=== PATIENT | female | born 1935 | race Caucasian/White ===

== ENCOUNTER 2020-01-15 15:07 | Inpatient (IN) | payer MEDICARE, SELFPAY ==
[2020-01-15] VITALS (10 sets, daily range): BP systolic 88–110; BP diastolic 56–72; PULSE 105–144; RESP 15–21; TEMP 36.6–37; O2SAT 94–97; BMI 25.9
--- NOTE | 2020-01-15 | ECG_ITS ---
Test Reason : [facility] HEART RATE Blood Pressure : / mmHG Vent. Rate : 131 BPM Atrial Rate : 131 BPM P-R Int : 000 ms QRS Dur : 078 ms QT Int : 300 ms P-R-T Axes : 000 053 194 degrees QTc Int : 443 ms Atrial fibrillation with rapid ventricular response ST & T wave abnormality, consider anterior ischemia Abnormal ECG When compared with ECG of 27-APR-2017 12:48, Atrial fibrillation has replaced Sinus rhythm Vent. rate has increased BY [address] more depressed Anterior leads T wave inversion now evident in Anterior leads Referred By: Anamaria Pang Electronically Signed By:JD MARISCAL
--- NOTE | 2020-01-15 | CT_ITS ---
EXAMINATION: CT ABDOMEN AND PELVIS WITHOUT CONTRAST CLINICAL INFORMATION: Nausea, diarrhea, acute renal failure, tachycardia. COMPARISON: None TECHNIQUE: Multidetector volumetric imaging was performed from the superior aspect of the liver through the pubic symphysis. Sagittal and coronal reformatted images were obtained on the technologist's workstation. This CT examination was performed using dose optimization techniques as appropriate, variously including the following: *Automated exposure control *Adjustment of mA and/or kV according to patient size (this includes techniques or standardized protocols for targeted exams where dose is matched to indication/reason for exam; i.e. extremities or head) *Use of iterative reconstruction technique DLP: 447 mGy-cm FINDINGS: LUNG BASES: Bibasilar atelectasis. Cardiomegaly. Coronary artery calcification. LIVER, GALLBLADDER, AND BILIARY TREE: Noncontrast evaluation of the liver is normal. There are calcified gallstones. No biliary ductal dilatation. PANCREAS: Normal noncontrast appearance. SPLEEN: Unremarkable. ADRENAL GLANDS: Diffuse left adrenal thickening. Right adrenal gland normal. KIDNEYS AND URETERS: 5 mm hyperdensity at the lateral cortex of the right mid-upper kidney, likely a hyperdense cyst but incompletely evaluated without IV contrast. Similarly there is a 5 mm hyperdensity in the anterior cortex of the right mid-lower kidney. No calculi or hydronephrosis. Likely 1.1 cm cyst of the posterior cortex of the right mid kidney. There is a 6.5 cm simple cyst of the lower pole the left kidney with a coarse peripheral calcification. No hydronephrosis or calculi. BLADDER: Unremarkable. GASTROINTESTINAL TRACT: Large hiatal hernia with essentially the entirety of the stomach in the chest. Small bowel is nondilated. There is ill-defined fluid and fat stranding adjacent the cecum. There are a few adjacent mildly prominent lymph nodes. The ileocecal valve is prominent. There are diverticula elsewhere in the colon. There is distal rectal wall thickening and perirectal fluid and inflammatory changes. There is fluid and fat stranding surrounding the distal sigmoid colon as well. ABDOMINAL WALL: Tiny fat-containing umbilical hernia. LYMPH NODES: Normal. VASCULAR: Normal caliber. Moderate calcified atherosclerotic changes. PELVIC VISCERA: Uterus not seen, either diminutive or surgically absent. No adnexal mass. OSSEOUS STRUCTURES: Multilevel degenerative changes of the thoracolumbar spine. Grade 1 anterolisthesis L3 on L4. Vacuum disc phenomenon L2-L3 through L5-S1. IMPRESSION: There are several segments of large bowel with adjacent fluid and fat stranding suggesting infection/inflammation. There is fluid and fat stranding adjacent the cecum, distal rectum, and distal sigmoid colon. The appearance favors colitis/proctitis. There is a background of diverticulosis particularly in the sigmoid colon but the appearance favors colitis over diverticulitis. Given the multifocal findings, consider colonoscopy after the acute episode has improved. Large hiatal hernia with essentially the entirety of the stomach in the chest.
--- NOTE | 2020-01-15 18:12 | ED.NAVMDI ---
HPI - Nausea/Vomiting/Diarrhea General Chief complaint: Nausea/Vomiting/Diarrhea <CRISTIAN Gibson Last Filed: 01/15/20 20:46> Stated complaint: diarrhea <CRISTIAN Gibson Last Filed: 01/15/20 20:46> Time Seen by Provider: 01/15/20 17:40 <CRISTIAN Gibson Last Filed: 01/15/20 20:46> Source: patient <CRISTIAN Gibson Last Filed: 01/15/20 20:46> Mode of arrival: wheelchair <CRISTIAN Gibson Last Filed: 01/15/20 20:46> Limitations: no limitations <CRISTIAN Gibson Last Filed: 01/15/20 20:46> History of Present Illness HPI Narrative: 85 y/o female here with diarrhea x4 days. She reports nausea and generally feeling unwell. No abdominal pain. No known sick contact. Recent abx in the last 1 month. No fevers at home. No bloody diarrhea. <CRISTIAN Gibson Last Filed: 01/15/20 20:46> Associated nausea: Yes <CRISTIAN Gibson Last Filed: 01/15/20 20:46> Related Data Home medications: Home Medications Medication Instructions Recorded Confirmed amlodipine 1 tab PO DAILY 01/15/20 01/15/20 atorvastatin 1 tab PO DAILY 01/15/20 01/15/20 metoprolol succinate 1 tab PO DAILY 01/15/20 01/15/20 omeprazole 1 cap PO DAILY 01/15/20 01/15/20 raloxifene 60 mg PO DAILY 01/15/20 01/15/20 warfarin PO 01/15/20 <CRISTIAN Gibson Last Filed: 01/15/20 20:46> Allergies/Adverse reactions: Allergies Allergy/AdvReac Type Severity Reaction Status Date / Time No Known Allergies Allergy Unverified 01/01/20 15:52 [No Known Allergies*] N.K.D.A. Allergy Unknown Uncoded 10/20/14 00:00 <CRISTIAN Gibson Last Filed: 01/15/20 20:46> Review of Systems Constitutional: Constitutional: Reports fatigue, Denies fever(s), Reports headache(s), Reports lethargy and Reports malaise <CRISTIAN Gibson Filed: 01/15/20 20:46> Eyes: Eyes: Reports no additional eye complaints <CRISTIAN Gibson Filed: 01/15/20 20:46> ENT: Reports system reviewed and no additional complaints, except as documented, Denies dizziness and Reports headache(s) <CRISTIAN Gibson Filed: 01/15/20 20:46> Cardiovascular: Cardiovascular: Denies chest pain, Denies chest pain at rest, Denies syncope, Reports rapid heart rate, Reports irregular heart rhythm and Denies leg edema <CRISTIAN Gibson Filed: 01/15/20 20:46> Respiratory: Respiratory: Reports no additional respiratory complaints <CRISTIAN Gibson Filed: 01/15/20 20:46> Gastrointestinal: Gastrointestinal: Denies abdominal pain, Denies melena, Denies hematochezia, Reports fecal incontinence, Reports diarrhea and Reports nausea <CRISTIAN Gibson Filed: 01/15/20 20:46> Genitourinary: Genitourinary: Reports no additional female genitourinary complaints <CRISTIAN Gibson Filed: 01/15/20 20:46> Musculoskeletal: Musculoskeletal: Reports no additional musculoskeletal complaints <CRISTIAN Gibson Filed: 01/15/20 20:46> Neurologic: Denies dizziness, Denies syncope and Reports headache(s) <CRISTIAN Gibson Filed: 01/15/20 20:46> Psychiatric: Psychiatric: Reports no additional psychiatric complaints <CRISTIAN Gibson Filed: 01/15/20 20:46> Endocrine: Endocrine: Reports fatigue <CRISTIAN Gibson Filed: 01/15/20 20:46> Hematologic/Lymphatic: Hematologic/Lymphatic: Reports no additional hematologic/lymphatic complaints <CRISTIAN Gibson Filed: 01/15/20 20:46> Allergic/Immunologic: Allergic/Immunologic: Reports no additional allergic/immunologic complaints <CRISTIAN Gibson Filed: 01/15/20 20:46> PMFSH Past Medical History Medical History: Medical History (Updated 01/16/20 @ 00:04 by Anamaria Pang NP) Atrial fibrillation Diverticulitis Gastro-esophageal reflux disease without esophagitis High cholesterol History of cardioversion Hypertension <CRISTIAN Gibson - Last Filed: 01/15/20 20:46> Surgical History: Surgical History H/O mastectomy <CRISTIAN Gibson - Last Filed: 01/15/20 20:46> Social History Social History: Social History Alcohol intake: never Smoking Status: Never smoker Use of substances other than those prescribed or required for medical reasons: No Advance Directives: No Advance Directives Information Provided: Yes <CRISTIAN Gibson - Last Filed: 01/15/20 20:46> Physical Exam Vital Signs and I&O and Narrative: Vital Signs and I&O: Vital Signs Temp 97.8 F 01/15/20 19:32 Pulse 123 H 01/15/20 23:53 Resp 18 01/15/20 22:47 BP 92/59 L 01/15/20 23:53 Pulse Ox 94 01/15/20 22:47 Intake & Output 01/15/20 01/15/20 01/16/20 06:59 18:59 06:59 Intake Total 2099 Balance 2099 Weight 62.3 kg Intake: Intake, IV Amoun t 2099 levoFLOXacin/D 5W 500 mg In 100 100 / 100 ml @ 100 mls/h r IV ONCE ONE Rx# :[id number] 0.9 % Sodium C hloride 1,000 ml 1999 / 1999 @ 999 mls/hr I VCONT .Q1H1M TRAV Rx#:[id number] Body Mass Index 25.9 <CRISTIAN Gibson - Last Filed: 01/15/20 20:46> Vital Signs and I&O: Vital Signs Temp 97.8 F 01/15/20 19:32 Pulse 123 H 01/15/20 23:53 Resp 18 01/15/20 22:47 BP 92/59 L 01/15/20 23:53 Pulse Ox 94 01/15/20 22:47 Intake & Output 01/15/20 01/15/20 01/16/20 06:59 18:59 06:59 Intake Total 2099 Balance 2099 Weight 62.3 kg Intake: Intake, IV Amoun t 2099 levoFLOXacin/D 5W 500 mg In 100 100 / 100 ml @ 100 mls/h r IV ONCE ONE Rx# :[id number] 0.9 % Sodium C hloride 1,000 ml 1999 / 1999 @ 999 mls/hr I VCONT .Q1H1M TRAV Rx#:[id number] Body Mass Index 25.9 <Anamaria Pang NP - Last Filed: 01/16/20 01:22> Const: General: cooperative, healthy appearing, comfortable and no acute distress <CRISTIAN Gibson Last Filed: 01/15/20 20:46> General: cooperative, healthy appearing, comfortable and no acute distress <Anamaria Pang NP - Last Filed: 01/16/20 01:22> Nutritional Appearance: average body habitus <CRISTIAN Gibson Last Filed: 01/15/20 20:46> Nutritional Appearance: average body habitus <Anamaria Pang NP - Last Filed: 01/16/20 01:22> Orientation/consciousness: patient oriented x3 <CRISTIAN Gibson Last Filed: 01/15/20 20:46> Orientation/consciousness: patient oriented x3 <Anamaria Pang NP - Last Filed: 01/16/20 01:22> Limitations: no limitations <CRISTIAN Gibson Last Filed: 01/15/20 20:46> Limitations: no limitations <Anamaria Pang NP - Last Filed: 01/16/20 01:22> HENMT: Head: Yes normal to inspection <CRISTIAN Gibson Last Filed: 01/15/20 20:46> Head: Yes normal to inspection <ROBB Ward Last Filed: 01/16/20 01:22> Ears: hearing grossly normal bilaterally <CRISTIAN Gibson Last Filed: 01/15/20 20:46> Ears: hearing grossly normal bilaterally <ROBB Ward Last Filed: 01/16/20 01:22> General nose exam: Normal external nose present <CRISTIAN Gibson Last Filed: 01/15/20 20:46> General nose exam: Normal external nose present <Anamaria Pang NP - Last Filed: 01/16/20 01:22> Face and sinus: Yes normal facial exam <CRISTIAN Gibson - Last Filed: 01/15/20 20:46> Face and sinus: Yes normal facial exam <Anamaria Pang NP - Last Filed: 01/16/20 01:22> Eyes: General: appearance normal, both eyes and all related structures <CRISTIAN Gibson - Last Filed: 01/15/20 20:46> General: appearance normal, both eyes and all related structures <Anamaria Pang NP - Last Filed: 01/16/20 01:22> Neck: Neck: Yes normal visual inspection <CRISTIAN Gibson - Last Filed: 01/15/20 20:46> Neck: Yes normal visual inspection <Anamaria Pang NP - Last Filed: 01/16/20 01:22> Resp: Effort & Inspection: normal respiratory effort and able to speak in complete sentences <CRISTIAN Gibson - Last Filed: 01/15/20 20:46> Effort & Inspection: normal respiratory effort and able to speak in complete sentences <Anamaria Pang NP - Last Filed: 01/16/20 01:22> Auscultation: clear to auscultation bilaterally <CRISTIAN Gibson - Last Filed: 01/15/20 20:46> Auscultation: clear to auscultation bilaterally <Anamaria Pang NP - Last Filed: 01/16/20 01:22> Cardio: Rate: tachycardic <CRISTIAN Gibson - Last Filed: 01/15/20 20:46> Rate: tachycardic <Anamaria Pang NP - Last Filed: 01/16/20 01:22> Rhythm: abnormal rhythm irregularly irregular <CRISTIAN Gibson Last Filed: 01/15/20 20:46> Rhythm: abnormal rhythm irregularly irregular <Anamaria Pang NP - Last Filed: 01/16/20 01:22> GI: Inspection: Yes normal to inspection <CRISTIAN Gibson - Last Filed: 01/15/20 20:46> Inspection: Yes normal to inspection <Anamaria Pang NP - Last Filed: 01/16/20 01:22> Palpation (GI): Soft to palpation and nontender <CRISTIAN Gibsno - Last Filed: 01/15/20 20:46> Palpation (GI): Soft to palpation and nontender <Anamaria Pang NP - Last Filed: 01/16/20 01:22> Auscultation: Hyperactive bowel sounds present <CRISTIAN Gibson - Last Filed: 01/15/20 20:46> Auscultation: Hyperactive bowel sounds present <Anamaria Pang NP - Last Filed: 01/16/20 01:22> Rectal Exam - Female: deferred <CRISTIAN Gibson - Last Filed: 01/15/20 20:46> Rectal Exam - Female: deferred <Anamaria Pang NP - Last Filed: 01/16/20 01:22> Neuro: General: patient oriented x3 <CRISTIAN Gibson - Last Filed: 01/15/20 20:46> General: patient oriented x3 <Anamaria Pang NP - Last Filed: 01/16/20 01:22> Extrem: General: Yes no pedal edema and Yes no calf tenderness <CRISTIAN Gibson - Last Filed: 01/15/20 20:46> General: Yes no pedal edema and Yes no calf tenderness <Anamaria Pang NP - Last Filed: 01/16/20 01:22> Psych: Appearance: grossly normal <CRISTIAN Gibson - Last Filed: 01/15/20 20:46> Appearance: grossly normal <Anamaria Pang NP - Last Filed: 01/16/20 01:22> Mental Status: mental status grossly normal <CRISTIAN Gibson - Last Filed: 01/15/20 20:46> Mental Status: mental status grossly normal <Anamaria Pang NP - Last Filed: 01/16/20 01:22> Course Course Hospital Course: 85 y/o femalewith hx afib on coumadin, hx cardioversion in the past presenting with diarrhea x4 days. Concern for dehydration with tachycardia and soft BP on arrival. Non-toxic appearing. Labs and CT scan pending. IVF infusing. Dispo pending results and improvement. <CRISTIAN Gibson - Last Filed: 01/15/20 20:46> Reevaluation(s) Reevaluation #1: 2nd liter fluid almost complete. She remains tachycardic 130s, afib. She is on lopressor at home - unclear compliance, INR is 1.1 - she is supposedly on coumadin at home. Will give a small dose of IV lopressor 2.5 mg x1 and reassess. SBP 106 at this time. Will monitor closely. <CRISTIAN Gibson - Last Filed: 01/15/20 20:46> Time: 21:32 <Anamaria Pang NP - Last Filed: 01/16/20 01:22> Reevaluation #2: Sign-out from Kimberly FOSTER at 9:00 p.m. labs and scans pending. This patient will possibly be admission. <Anamaria Pang NP - Last Filed: 01/16/20 01:22> Time: 22:45 <Anamaria Pang NP - Last Filed: 01/16/20 01:22> Reevaluation #3: AFib continues, repeat EKG completed. Dr. 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 Plan is to continue with Lopressor 5 mg IV push. Patient did not take any of her medications today or throughout the week because she felt ill. Third L of normal saline infusing. <Anamaria Pang NP - Last Filed: 01/16/20 01:22> Time: 23:15 <Anamaira Pang NP - Last Filed: 01/16/20 01:22> Additional Reevaluation(s): Heart rate bumps from 99-130. We will give p.o. metoprolol 50 mg ER per home dosage. at 12:[address] Garner, patient will be admitted for colitis and AFib. Patient verbalized understanding of and agrees to plan of care. <Anamaria Pang NP - Last Filed: 01/16/20 01:22> MDM - Nausea/Vomiting/Diarrhea MDM Narrative Medical decision making narrative: fecal incontinence at home - ?recent abx. will r/o C diff. soft BP and tachycardic on arrival, concern for dehydration <CRISTIAN Gibson - Last Filed: 01/15/20 20:46> Differential Diagnosis Differential diagnosis: Likely traveler's diarrhea, food poisoning, gastroenteritis, clostridium difficile infection, drug-induced nausea and vomiting and dehydration <CRISTIAN Gibson - Last Filed: 01/15/20 20:46> Medical Records Attestation: I reviewed the patient's medical records. <CRISTIAN Gibson - Last Filed: 01/15/20 20:46> Lab Data Attestation: I reviewed the patient's lab results. <CRISTIAN Gibson - Last Filed: 01/15/20 20:46> Result diagrams: : 01/15/20 19:13 01/15/20 18:34 <CRISTIAN Gibson - Last Filed: 01/15/20 20:46> Labs: Lab Results 01/15/20 01/15/20 01/15/20 Range/Units 18:34 19:13 19:13 WBC 6.6 (4.8-10.8) X10*3/uL RBC 4.87 (4.20-5.50) X10*6/uL Hgb 14.6 (12.0-16.0) g/dl Hct 43.6 (37-47) % MCV 89.5 (80-98) fL MCH 30.0 (27.0-33.0) pg MCHC 33.5 (31.0-35.0) g/dl RDW 14.1 (11.0-16.0) % Plt Count 143 L (160-400) X10*3/uL MPV 11.2 (9.4-12.3) fL Immature Gran % (Auto) 0.9 H (0.0-0.4) % Neut % (Auto) 77.3 H (45-73) % Lymph % (Auto) 10.2 L (20-40) % [place] % (Auto) 11.1 H (2-11) % Eos % (Auto) 0.0 (0-4) % Baso % (Auto) 0.5 (0-2) % Neut # (Auto) 5.1 (2.0-8.3) X10*3/uL Lymph # (Auto) 0.7 L (1.2-4.9) X10*3/uL [place] # (Auto) 0.7 (0.1-1.2) X10*3/uL Eos # (Auto) 0.0 (0.0-0.4) X10*3/uL Baso # (Auto) 0.0 (0.0-0.2) X10*3/uL Abs Immat Gran (auto) 0.06 H (0.00-0.03) X10*3/uL Absolute Nucleated RBC 0.000 (0.0-0.012) X10*3/uL Nucleated RBC % (auto) 0.0 (0.0-0.2) /100WBC Smear Tech's Comments VERIFIED PT 13.2 H (10.8-13.0) SEC INR 1.1 (0.9-1.1) APTT 29.7 (24.1-38.0) SEC Sodium 132 L (135-145) mmol/L Potassium 3.8 (3.3-5.1) mmol/l Chloride 99 (96-108) mmol/L Carbon Dioxide 19 L (22-29) mmol/L Anion Gap 18 (12-20) BUN 56 H (9-16) mg/dL Creatinine 2.70 H (0.5-1.4) mg/dL Estim Creat Clear Calc 13.1 Estimated GFR 17 Random Glucose 109 (60-115) mg/dL Lactic Acid (0.5-2.0) mmol/L Calcium 8.8 (8.4-10.2) mg/dL Total Bilirubin 0.6 (0.0-1.0) mg/dL Direct Bilirubin 0.3 (0.0-0.5) mg/dL AST 31 (5-31) U/L ALT 23 (0-31) U/L Alkaline Phosphatase 77 (39-117) U/L Troponin I High Sens (<3.5-17.0) ng/L Total Protein 6.5 (6.5-8.0) g/dL Albumin 3.7 (3.5-5.0) g/dL Lipase 76 (8-78) U/L C. difficile Toxin A&B (Negative) C. difficile Antigen (Negative) C. difficile Interpret 10/01/20 10/01/20 10/01/20 Range/Units 20:54 22:14 22:56 WBC (4.8-10.8) X10*3/uL RBC (4.20-5.50) X10*6/uL Hgb (12.0-16.0) g/dl Hct (37-47) % MCV (80-98) fL MCH (27.0-33.0) pg MCHC (31.0-35.0) g/dl RDW (11.0-16.0) % Plt Count (160-400) X10*3/uL MPV (9.4-12.3) fL Immature Gran % (Auto) (0.0-0.4) % Neut % (Auto) (45-73) % Lymph % (Auto) (20-40) % [place] % (Auto) (2-11) % Eos % (Auto) (0-4) % Baso % (Auto) (0-2) % Neut # (Auto) (2.0-8.3) X10*3/uL Lymph # (Auto) (1.2-4.9) X10*3/uL [place] # (Auto) (0.1-1.2) X10*3/uL Eos # (Auto) (0.0-0.4) X10*3/uL Baso # (Auto) (0.0-0.2) X10*3/uL Abs Immat Gran (auto) (0.00-0.03) X10*3/uL Absolute Nucleated RBC (0.0-0.012) X10*3/uL Nucleated RBC % (auto) (0.0-0.2) /100WBC Smear Tech's Comments PT (10.8-13.0) SEC INR (0.9-1.1) APTT (24.1-38.0) SEC Sodium (135-145) mmol/L Potassium (3.3-5.1) mmol/l Chloride (96-108) mmol/L Carbon Dioxide (22-29) mmol/L Anion Gap (12-20) BUN (9-16) mg/dL Creatinine (0.5-1.4) mg/dL Estim Creat Clear Calc Estimated GFR Random Glucose (60-115) mg/dL Lactic Acid 1.6 (0.5-2.0) mmol/L Calcium (8.4-10.2) mg/dL Total Bilirubin (0.0-1.0) mg/dL Direct Bilirubin (0.0-0.5) mg/dL AST (5-31) U/L ALT (0-31) U/L Alkaline Phosphatase (39-117) U/L Troponin I High Sens 37.7 H (<3.5-17.0) ng/L Total Protein (6.5-8.0) g/dL Albumin (3.5-5.0) g/dL Lipase (8-78) U/L C. difficile Toxin A&B Negative (Negative) C. difficile Antigen Negative (Negative) C. difficile Interpret SEE NOTE <CRISTIAN Gibson - Last Filed: 01/15/20 20:46> Lab Results 01/15/20 01/15/20 01/15/20 Range/Units 18:34 19:13 19:13 WBC 6.6 (4.8-10.8) X10*3/uL RBC 4.87 (4.20-5.50) X10*6/uL Hgb 14.6 (12.0-16.0) g/dl Hct 43.6 (37-47) % MCV 89.5 (80-98) fL MCH 30.0 (27.0-33.0) pg MCHC 33.5 (31.0-35.0) g/dl RDW 14.1 (11.0-16.0) % Plt Count 143 L (160-400) X10*3/uL MPV 11.2 (9.4-12.3) fL Immature Gran % (Auto) 0.9 H (0.0-0.4) % Neut % (Auto) 77.3 H (45-73) % Lymph % (Auto) 10.2 L (20-40) % [place] % (Auto) 11.1 H (2-11) % Eos % (Auto) 0.0 (0-4) % Baso % (Auto) 0.5 (0-2) % Neut # (Auto) 5.1 (2.0-8.3) X10*3/uL Lymph # (Auto) 0.7 L (1.2-4.9) X10*3/uL [place] # (Auto) 0.7 (0.1-1.2) X10*3/uL Eos # (Auto) 0.0 (0.0-0.4) X10*3/uL Baso # (Auto) 0.0 (0.0-0.2) X10*3/uL Abs Immat Gran (auto) 0.06 H (0.00-0.03) X10*3/uL Absolute Nucleated RBC 0.000 (0.0-0.012) X10*3/uL Nucleated RBC % (auto) 0.0 (0.0-0.2) /100WBC Smear Tech's Comments VERIFIED PT 13.2 H (10.8-13.0) SEC INR 1.1 (0.9-1.1) APTT 29.7 (24.1-38.0) SEC Sodium 132 L (135-145) mmol/L Potassium 3.8 (3.3-5.1) mmol/l Chloride 99 (96-108) mmol/L Carbon Dioxide 19 L (22-29) mmol/L Anion Gap 18 (12-20) BUN 56 H (9-16) mg/dL Creatinine 2.70 H (0.5-1.4) mg/dL Estim Creat Clear Calc 13.1 Estimated GFR 17 Random Glucose 109 (60-115) mg/dL Lactic Acid (0.5-2.0) mmol/L Calcium 8.8 (8.4-10.2) mg/dL Total Bilirubin 0.6 (0.0-1.0) mg/dL Direct Bilirubin 0.3 (0.0-0.5) mg/dL AST 31 (5-31) U/L ALT 23 (0-31) U/L Alkaline Phosphatase 77 (39-117) U/L Troponin I High Sens (<3.5-17.0) ng/L Total Protein 6.5 (6.5-8.0) g/dL Albumin 3.7 (3.5-5.0) g/dL Lipase 76 (8-78) U/L C. difficile Toxin A&B (Negative) C. difficile Antigen (Negative) C. difficile Interpret 01/15/20 01/15/2020 Range/Units 20:54 22:14 22:56 WBC (4.8-10.8) X10*3/uL RBC (4.20-5.50) X10*6/uL Hgb (12.0-16.0) g/dl Hct (37-47) % MCV (80-98) fL MCH (27.0-33.0) pg MCHC (31.0-35.0) g/dl RDW (11.0-16.0) % Plt Count (160-400) X10*3/uL MPV (9.4-12.3) fL Immature Gran % (Auto) (0.0-0.4) % Neut % (Auto) (45-73) % Lymph % (Auto) (20-40) % [place] % (Auto) (2-11) % Eos % (Auto) (0-4) % Baso % (Auto) (0-2) % Neut # (Auto) (2.0-8.3) X10*3/uL Lymph # (Auto) (1.2-4.9) X10*3/uL [place] # (Auto) (0.1-1.2) X10*3/uL Eos # (Auto) (0.0-0.4) X10*3/uL Baso # (Auto) (0.0-0.2) X10*3/uL Abs Immat Gran (auto) (0.00-0.03) X10*3/uL Absolute Nucleated RBC (0.0-0.012) X10*3/uL Nucleated RBC % (auto) (0.0-0.2) /100WBC Smear Tech's Comments PT (10.8-13.0) SEC INR (0.9-1.1) APTT (24.1-38.0) SEC Sodium (135-145) mmol/L Potassium (3.3-5.1) mmol/l Chloride (96-108) mmol/L Carbon Dioxide (22-29) mmol/L Anion Gap (12-20) BUN (9-16) mg/dL Creatinine (0.5-1.4) mg/dL Estim Creat Clear Calc Estimated GFR Random Glucose (60-115) mg/dL Lactic Acid 1.6 (0.5-2.0) mmol/L Calcium (8.4-10.2) mg/dL Total Bilirubin (0.0-1.0) mg/dL Direct Bilirubin (0.0-0.5) mg/dL AST (5-31) U/L ALT (0-31) U/L Alkaline Phosphatase (39-117) U/L Troponin I High Sens 37.7 H (<3.5-17.0) ng/L Total Protein (6.5-8.0) g/dL Albumin (3.5-5.0) g/dL Lipase (8-78) U/L C. difficile Toxin A&B Negative (Negative) C. difficile Antigen Negative (Negative) C. difficile Interpret SEE NOTE <Anamaria Pang NP - Last Filed: 01/16/20 01:22> ECG Data Attestation: I personally reviewed and interpreted this ECG as follows: <CRISTIAN Gibson - Last Filed: 01/15/20 20:46> I personally reviewed and interpreted this ECG as follows: <Anamaria Pang NP - Last Filed: 01/16/20 01:22> ECG interpretation date: 01/15/20 <CRISTIAN Gibson - Last Filed: 01/15/20 20:46> 01/15/20 <Anamaria Pang NP - Last Filed: 01/16/20 01:22> ECG interpretation time: 19:52 <CRISTIAN Gibson - Last Filed: 01/15/20 20:46> 22:31 <Anamaria Pang NP - Last Filed: 01/16/20 01:22> Prior ECG tracings: available for review <Anamaria Pang NP - Last Filed: 01/16/20 01:22> Interpretation: atrial fibrillation with rapid ventricular response, HR 130, non-specific St & T wave abnormality <CRISTIAN Gibson - Last Filed: 01/15/20 20:46> Atrial fibrillation with RVR, rate 132, ST wave abnormality with T-wave inversions. ST depressions noted in the anterior leads. No significant changes from prior EKG earlier today. <Anamaria Pang NP - Last Filed: 01/16/20 01:22> Critical Care Time Critical Care Time Critical Care Time: Yes <Anamaria Pang NP - Last Filed: 01/16/20 01:22> Total Critical Care Time: 60 <Anamaria Pang NP - Last Filed: 01/16/20 01:22> Attestation: critical take care time on this patient includes multiple re-evaluations, EKG repeat, consulting ED attending, consulted with hospitalist, review of old records and EKG comparison, does not include time including procedures. Total critical care time is 35-60 minutes. <Anamaria Pang NP - Last Filed: 01/16/20 01:22> Discharge Plan Discharge Clinical Impression: Colitis A-fib Qualifiers: Atrial fibrillation type: longstanding persistent Qualified Code(s): I48.11 - Longstanding persistent atrial fibrillation <CRISTIAN Gibson - Last Filed: 01/15/20 20:46> Patient Disposition: Admitted As Inpatient <CRISTIAN Gibson - Last Filed: 01/15/20 20:46>
[2020-01-15] MEDS: ondansetron HCL 4 MG/2 ML VIAL IVPUSH (18:33)
[2020-01-15] MEDS: 0.9 % Sodium Chloride 1,000 ML 999 ML IVCONT ×3 (18:34→22:53)
--- NOTE | 2020-01-15 19:02 | PC.NURSE ---
report taken from suleman hooker. pt tachy on monitor 123. phleb at bedside due to patient difficult stick. fluids infusing at this time,
[2020-01-15 19:06] LABS: Alanine Aminotransferase 23 U/L (0-31); Albumin Level 3.7 g/dL (3.5-5.0); Alkaline Phosphatase 77 U/L (39-117); Anion Gap 18 (12-20); Aspartate Amino Transferase 31 U/L (5-31); Bilirubin Direct 0.3 mg/dL (0.0-0.5); Bilirubin Total 0.6 mg/dL (0.0-1.0); Blood Urea Nitrogen 56 mg/dL (9-16); Calcium 8.8 mg/dL (8.4-10.2); Carbon Dioxide 19 mmol/L (22-29); Chloride 99 mmol/L (96-108); Creatinine Clr Calc Pharmacy 13.1; Estimated Glomerular Filt Rate 17; Glucose Random 109 mg/dL (60-115); Lipase 76 U/L (8-78); Potassium 3.8 mmol/l (3.3-5.1); Sodium 132 mmol/L (135-145); Total Protein 6.5 g/dL (6.5-8.0)
[2020-01-15 19:29] LABS: Basophils Percent Auto 0.5 % (0-2); Hematocrit 43.6 % (37-47); Hemoglobin 14.6 g/dl (12.0-16.0); Imm Gran Abs Auto 0.06 X10*3/uL (0.00-0.03); Imm Gran Pct Auto 0.9 % (0.0-0.4); Lymphocytes Absolute Auto 0.7 X10*3/uL (1.2-4.9); Lymphocytes Percent Auto 10.2 % (20-40); MANUAL DIFF FLAG SCAN; Mean Corpuscular HGB Conc 33.5 g/dl (31.0-35.0); Mean Corpuscular Volume 89.5 fL (80-98); Mean Platelet Volume 11.2 fL (9.4-12.3); Monocytes Absolute Auto 0.7 X10*3/uL (0.1-1.2); Monocytes Percent Auto 11.1 % (2-11); Neutrophils Absolute Auto 5.1 X10*3/uL (2.0-8.3); Neutrophils Percent Auto 77.3 % (45-73); Platelet Count 143 X10*3/uL (160-400); Red Blood Count 4.87 X10*6/uL (4.20-5.50); Red Cell Distribution Width 14.1 % (11.0-16.0); SCAN SMEAR FLAG 1; White Blood Count 6.6 X10*3/uL (4.8-10.8)
[2020-01-15 19:42] LABS: INTERNATIONAL NORM RATIO 1.1 (0.9-1.1); Prothrombin Time 13.2 SEC (10.8-13.0)
[2020-01-15 19:45] LABS: Partial Thromboplastin Time 29.7 SEC (24.1-38.0)
--- NOTE | 2020-01-15 19:45 | ECG_ITS ---
Test Reason : TACHYCARDIA Blood Pressure : / mmHG Vent. Rate : 132 BPM Atrial Rate : 144 BPM P-R Int : 000 ms QRS Dur : 084 ms QT Int : 302 ms P-R-T Axes : 000 045 240 degrees QTc Int : 447 ms Atrial fibrillation with rapid ventricular response ST & T wave abnormality, consider anterolateral ischemia Abnormal ECG When compared with ECG of 15-JAN-2020 19:43, No significant change was found Referred By: Anamaria Pang Electronically Signed By:JD MARISCAL
[2020-01-15 19:54] LABS: SLIDE REVIEW VERIFIED
--- NOTE | 2020-01-15 20:12 | PC.NURSE ---
phleb at bedside attempting to get blood cultures and lactic
--- NOTE | 2020-01-15 20:42 | PC.NURSE ---
PT TO AND FROM CT SCAN AT THIS TIME.
[2020-01-15] MEDS: Metoprolol Tartrate 5 MG/5 ML VIAL 2.5 MG IVPUSH (21:10)
[2020-01-15] MEDS: 0.9 % Sodium Chloride 500 ML IV (21:11)
[2020-01-15 21:20] LABS: Lactic Acid 1.6 mmol/L (0.5-2.0)
[2020-01-15] MEDS: levoFLOXacin/D5W 500 MG/100 ML PIGGYBACK 100 MG IV (22:41)
[2020-01-15] MEDS: Metoprolol Tartrate 5 MG/5 ML VIAL IVPUSH (22:52)
[2020-01-15 23:08] LABS: CDIFF Ag Negative (Negative); CDIFF Internal ctrl Dots and bkg OK (V); CDiff Toxin Negative (Negative)
[2020-01-15] MEDS: Metoprolol Succinate ER 50 MG TAB.ER.24H PO (23:53)
[2020-01-15] MEDS: metroNIDAZOLE/NS 500 MG/100 ML PIGGYBACK 100 MG IV (23:54)
[2020-01-15 23:57] LABS: Troponin-I High Sensitivity 37.7 ng/L (<3.5-17.0)
[2020-01-16] VITALS (14 sets, daily range): BP systolic 92–128; BP diastolic 51–67; PULSE 70–119; RESP 18–84; TEMP 34.7–37; O2SAT 92–98
--- NOTE | 2020-01-16 00:49 | PC.NURSE ---
PT INCONTINENT OF STOOL. PT CLEANED.
--- NOTE | 2020-01-16 01:14 | PC.NURSE ---
REPORT CALLED. PENDING TRANSPORT TO FLOOR
--- NOTE | 2020-01-16 01:37 | PC.NURSE ---
PT INCONTINENT OF LIWUID STOOL AGAIN. CAR HOSTLER AWARE OF PT HR BETWEEN 120-140 BPM.
[2020-01-16] MEDS: dilTIAZem HCL 125 MG in 0.9 % Sodium Chloride 100 ML IVCONT (03:05)
[2020-01-16] MEDS: Heparin Sodium,Porcine 5,000 UNIT/ML VIAL 5000 UNIT SUBCUT ×2 (03:47→15:35)
[2020-01-16] MEDS: 0.9 % Sodium Chloride 1,000 ML 100 ML IVCONT ×3 (03:48→22:00)
--- NOTE | 2020-01-16 05:35 | P.HPIM_ITS ---
History of Present Illness Date of Service: 01/16/20 Chief Complaint: diarrhea this is a an 85-year-old female with past medical history of AFib on Coumadin, hypertension, and hyperlipidemia as well as gastric reflex who presents to the hospital with complaints of multiple episodes of diarrhea. Patient reports that for the past 1 week she has had nonstop diarrhea throughout the day, watery nonbloody. She reports that about a month ago she was treated for UTI with antibiotics. She has no abdominal pain, no nausea or vomiting. No lower extremity edema, no chest pain, no shortness of breath, no headache no change in vision, and no urinary symptoms at this time. On arrival to the ED patient hemodynamically stable with a heart rate in the 140s in AFib. Patient denies having any shortness of breath, chest pain, or palpitations. Labs are significant for sodium of 132, BUN of 56, creatinine of 2.70 (12/03 creatinine of 1.47), with the high sensitivity troponin of 37.7. Patient has no chest pain CT abdomen revealed several segments of large bowel with adjacent fluid and fat stranding suggestive of infection/inflammation. The appearance favors colitis/proctitis. Given the multifocal findings consider colonoscopy after the acute episode has improved per radiology. Patient will be admitted for further management Past medical history: AFib on Coumadin, GERD, hyperlipidemia, hypertension past surgical history: Denies family history: Father had heart disease cough mother had colon cancer social history: Comes from home, lives alone, ambulates independently, denies any tobacco alcohol or illicit drug Review of Systems Review of Systems: Yes all other systems are reviewed and are negative Constitutional: Constitutional: Reports headache(s) ENT: Denies dizziness and Reports headache(s) Cardiovascular: Cardiovascular: Denies syncope Neurologic: Denies dizziness, Denies syncope and Reports headache(s) [facility] Medical History Atrial fibrillation Diverticulitis Gastro-esophageal reflux disease without esophagitis High cholesterol History of cardioversion Hypertension Surgical History H/O mastectomy Social History Household Members: None Housing: Apartment Do you presently have visiting nurse or other home services: No Alcohol intake: never Smoking Status: Never smoker Use of substances other than those prescribed or required for medical reasons: No Advance Directives: No Advance Directives Information Provided: Yes Advance Directives on File: Yes Do you have thoughts of harming others: None Do you have a plan to hurt others: No Plan Recently lost weight without trying: Unsure Meds Allergies Allergy/AdvReac Type Severity Reaction Status Date / Time No Known Allergies Allergy Unverified 01/01/20 15:52 [No Known Allergies*] N.K.D.A. Allergy Unknown Uncoded 10/20/14 00:00 Home Medications Medication Instructions Recorded Confirmed Type amlodipine 1 tab PO DAILY 01/15/20 01/15/20 History atorvastatin 1 tab PO DAILY 01/15/20 01/15/20 History metoprolol succinate 1 tab PO DAILY 01/15/20 01/15/20 History omeprazole 1 cap PO DAILY 01/15/20 01/15/20 History raloxifene 60 mg PO DAILY 01/15/20 01/15/20 History warfarin PO 01/15/20 History Physical Exam Vital Signs and Narrative: Vital Signs: Last Vital Signs Temp 98.6 F 01/16/20 04:00 Pulse 112 H 01/16/20 03:42 Resp 18 01/16/20 04:00 BP 128/64 01/16/20 04:00 Pulse Ox 98 01/16/20 04:00 Body Mass Index 25.9 Const: General: cooperative and no acute distress Orientation/consciousness: patient oriented x3 Eyes: General: appearance normal, both eyes and all related structures Pupils: Equal, round and reactive pupils present Resp: Effort & Inspection: normal respiratory effort, able to speak in complete sentences and abnormal respiratory pattern Auscultation: clear to auscultation bilaterally Cardio: Rate: regular rate Rhythm: regular rhythm GI: Palpation (GI): Soft to palpation Auscultation: normal bowel sounds Skin: General skin exam: no rashes or lesions noted Neuro: General: patient oriented x3 Cranial nerves: Yes Equal, round and reactive pupils present Cognition (Neuro): normal cognition Extrem: General: Yes normal to inspection and Yes no pedal edema Results Labs Labs: Laboratory Tests 01/15/20 01/15/20 01/15/20 18:34 19:13 19:13 WBC 6.6 RBC 4.87 Hgb 14.6 Hct 43.6 MCV 89.5 MCH 30.0 MCHC 33.5 RDW 14.1 Plt Count 143 L MPV 11.2 Immature Gran % (Auto) 0.9 H Neut % (Auto) 77.3 H Lymph % (Auto) 10.2 L [place] % (Auto) 11.1 H Eos % (Auto) 0.0 Baso % (Auto) 0.5 Neut # (Auto) 5.1 Lymph # (Auto) 0.7 L [place] # (Auto) 0.7 Eos # (Auto) 0.0 Baso # (Auto) 0.0 Abs Immat Gran (auto) 0.06 H Absolute Nucleated RBC 0.000 Nucleated RBC % (auto) 0.0 Smear Tech's Comments VERIFIED PT 13.2 H INR 1.1 APTT 29.7 Sodium 132 L Potassium 3.8 Chloride 99 Carbon Dioxide 19 L Anion Gap 18 BUN 56 H Creatinine 2.70 H Estim Creat Clear Calc 13.1 Estimated GFR 17 Random Glucose 109 Lactic Acid Calcium 8.8 Total Bilirubin 0.6 Direct Bilirubin 0.3 AST 31 ALT 23 Alkaline Phosphatase 77 Troponin I High Sens Total Protein 6.5 Albumin 3.7 Lipase 76 C. difficile Toxin A&B C. difficile Antigen C. difficile Interpret 01/15/20 01/15/20 01/15/20 20:54 22:14 22:56 WBC RBC Hgb Hct MCV MCH MCHC RDW Plt Count MPV Immature Gran % (Auto) Neut % (Auto) Lymph % (Auto) [place] % (Auto) Eos % (Auto) Baso % (Auto) Neut # (Auto) Lymph # (Auto) [place] # (Auto) Eos # (Auto) Baso # (Auto) Abs Immat Gran (auto) Absolute Nucleated RBC Nucleated RBC % (auto) Smear Tech's Comments PT INR APTT Sodium Potassium Chloride Carbon Dioxide Anion Gap BUN Creatinine Estim Creat Clear Calc Estimated GFR Random Glucose Lactic Acid 1.6 Calcium Total Bilirubin Direct Bilirubin AST ALT Alkaline Phosphatase Troponin I High Sens 37.7 H Total Protein Albumin Lipase C. difficile Toxin A&B Negative C. difficile Antigen Negative C. difficile Interpret SEE NOTE Assessment and Plan (1) Colitis: Status: Acute this patient presents to the hospital with multiple episodes of diarrhea for the past 1 week, patient was treated with antibiotics for treatment of UTI about a month ago. This is concerning for C diff infection given the frequency of her bowel movements Patient afebrile, no leukocytosis Plan: patient received Flagyl in levofloxacin in the ED will continue Stool cultures, C diff, ova and parasites were ordered by the ED, will most likely need outpatient colonoscopy once this acute incident resolves (2) Atrial fibrillation with RVR: Status: Acute most likely secondary to acute infection patient on metoprolol at home as well as warfarin but has not taken her medications in over a week due to the fact that she has not been feeling well has subtherapeutic INR at this time will restart her metoprolol, and Coumadin at 5 mg follow PT INR daily (3) Acute kidney injury superimposed on CKD: Status: Acute most likely secondary to acute infection and low p.o. intake as well as diarrhea start IV fluids follow BMP (4) Hiatal hernia: Status: Acute continue omeprazole (5) High cholesterol: Status: Acute continue stat (6) Hypertension: Status: Acute continue amlodipine
[2020-01-16 07:06] LABS: INTERNATIONAL NORM RATIO 1.2 (0.9-1.1); Prothrombin Time 14.2 SEC (10.8-13.0)
[2020-01-16 07:18] LABS: Troponin-I High Sensitivity 26.9 ng/L (<3.5-17.0)
[2020-01-16] MEDS: 0.9 % Sodium Chloride Flush 3 ML SYRINGE 2 ML IVFLUSH (09:28)
[2020-01-16] MEDS: Omeprazole 20 MG CAPSULE.DR PO (09:37)
[2020-01-16] MEDS: Atorvastatin Calcium 20 MG TABLET PO (09:37)
--- NOTE | 2020-01-16 09:59 | MHC.CM.PN ---
CM met with patient at the bedside who reports she lives alone and is independent. HCP completed and placed on chart. Discussed discharge plan home no services. Family will provide transportation. CM will continue to follow patient for discharge needs.
--- NOTE | 2020-01-16 11:26 | PC.NURSE ---
pt had non functioning IV to left AC. Removed IV and established new access in left wrist. Pt has 3 small skin tears to left AC from old IV dressing. Applied non adherent dressing and sterile gauze to wounds. Also wrapped new IV site with ABD dressing and gauze to limit range of motion to the IV site. pt tolerated well.
[2020-01-16] MEDS: metroNIDAZOLE/NS 500 MG/100 ML PIGGYBACK 100 MG IV ×2 (11:36→20:23)
[2020-01-16] MEDS: cefTRIAXone sodium 1 GM in 0.9 % Sodium Chloride 50 ML IV (11:36)
[2020-01-16] MEDS: Loperamide HCl 2 MG CAPSULE PO (13:49)
[2020-01-16] MEDS: dilTIAZem HCL 125 MG in 0.9 % Sodium Chloride 100 ML 15 MG IVCONT (14:21)
[2020-01-16] MEDS: Warfarin Sodium 5 MG TABLET PO (18:19)
[2020-01-16] MEDS: Lactated Ringers 500 ML 999 ML IVCONT (20:00)
[2020-01-17] VITALS (11 sets, daily range): BP systolic 101–126; BP diastolic 50–75; PULSE 89–122; RESP 18–20; TEMP 36.1–37.1; O2SAT 93–96
--- NOTE | 2020-01-17 00:08 | MHC.PIE ---
~1930 P: Hypotension, BP 80/60. I: Assessment, vitals, MD made aware. LR 500ml bolus ordered/given. Cardizem gtt turned off per MD. Repeat BP 93/51. E: Pt A/O x3, asymptomatic, Afib rate 70-80's, BP soft 94/58. Maintenance fluids infusing NS @100ml/hr, lungs CTA, no edema. Will continue to monitor.
[2020-01-17] MEDS: Heparin Sodium,Porcine 5,000 UNIT/ML VIAL 5000 UNIT SUBCUT ×2 (03:00→17:07)
[2020-01-17] MEDS: metroNIDAZOLE/NS 500 MG/100 ML PIGGYBACK 100 MG IV ×3 (04:31→19:22)
[2020-01-17] MEDS: Loperamide HCl 2 MG CAPSULE PO (04:35)
[2020-01-17 05:02] LABS: MANUAL DIFF FLAG NO
[2020-01-17 05:06] LABS: Basophils Percent Auto 0.5 % (0-2); Eosinophils Percent Auto 0.5 % (0-4); Hematocrit 34.9 % (37-47); Hemoglobin 11.7 g/dl (12.0-16.0); Imm Gran Abs Auto 0.06 X10*3/uL (0.00-0.03); Imm Gran Pct Auto 1.4 % (0.0-0.4); Lymphocytes Absolute Auto 0.8 X10*3/uL (1.2-4.9); Lymphocytes Percent Auto 17.6 % (20-40); Mean Corpuscular HGB Conc 33.5 g/dl (31.0-35.0); Mean Corpuscular Hemoglobin 30.2 pg (27.0-33.0); Mean Corpuscular Volume 90.2 fL (80-98); Monocytes Absolute Auto 0.5 X10*3/uL (0.1-1.2); Monocytes Percent Auto 12.2 % (2-11); Neutrophils Absolute Auto 2.9 X10*3/uL (2.0-8.3); Neutrophils Percent Auto 67.8 % (45-73); Platelet Count 149 X10*3/uL (160-400); Red Blood Count 3.87 X10*6/uL (4.20-5.50); Red Cell Distribution Width 13.6 % (11.0-16.0); White Blood Count 4.3 X10*3/uL (4.8-10.8)
[2020-01-17 05:12] LABS: INTERNATIONAL NORM RATIO 1.4 (0.9-1.1); Prothrombin Time 16.7 SEC (10.8-13.0)
[2020-01-17 05:38] LABS: Anion Gap 12 (12-20); Blood Urea Nitrogen 41 mg/dL (9-16); Calcium 6.9 mg/dL (8.4-10.2); Carbon Dioxide 15 mmol/L (22-29); Chloride 111 mmol/L (96-108); Creatinine Clr Calc Pharmacy 23.9; Estimated Glomerular Filt Rate 34; Glucose Random 86 mg/dL (60-115); Potassium 3.1 mmol/l (3.3-5.1); Sodium 135 mmol/L (135-145)
[2020-01-17] MEDS: 0.9 % Sodium Chloride 1,000 ML 100 ML IVCONT (08:28)
[2020-01-17] MEDS: Atorvastatin Calcium 20 MG TABLET PO (08:33)
[2020-01-17] MEDS: Metoprolol Succinate ER 50 MG TAB.ER.24H PO (08:33)
[2020-01-17] MEDS: Omeprazole 20 MG CAPSULE.DR PO (08:33)
--- NOTE | 2020-01-17 12:17 | HO.PM.IMPN ---
Subjective Cardiovascular Cardiovascular: Denies no additional cardiovascular complaints Respiratory Respiratory: Denies no additional respiratory complaints Physical Exam Vital Signs and I&O and Narrative: Vital Signs and I&O: Vital Signs Temp 97.0 F 01/17/20 11:32 Pulse 104 H 01/17/20 11:32 Resp 18 01/17/20 11:32 BP 126/74 01/17/20 11:32 Pulse Ox 96 01/17/20 11:32 Intake & Output 01/16/20 01/17/20 01/17/20 18:59 06:59 18:59 Intake Total 1555.750 / 3098.00 0 1542.25 / 3098.000 1000 / 1000 Output Total 800 / 800 Balance 1555.750 / 2298.00 0 742.25 / 2298.000 1000 / 1000 Urine Output (Aver age ml/kg/hr) 1.07 1.07 Intake: Intake, Oral [place] unt 360 / 360 Intake, IV Amoun t 1195.750 / 2738.00 0 1542.25 / 2738.000 1000 / 1000 cefTRIAXone so dium 1 gm In 0.9 50 / 50 % Sodium Chlor gianluca 50 ml @ 100 mls/hr IV Q24H TRAV Rx#: [id number] metroNIDAZOLE/ NS 500 mg In 100 100 / 300 200 / 300 ml @ 100 mls/h r IV Q8H TRAV Rx#: [id number] 0.9 % Sodium C hloride 1,000 ml 955.000 / 1720.000 765 / 5595.508 2847 / 1000 @ 100 mls/hr I VCONT .Q10H TRAV Rx#:[id number] Lactated Ringe rs 500 ml @ 999 500 / 500 mls/hr IVCONT .Q31M TRAV Rx#: [id number] dilTIAZem HCL 125 mg In 0.9 % 90.75 / 168.00 77.25 / 168.00 Sodium Chlorid e 100 ml @ Per Protocol IVCON T .Q0M TRAV Rx#: [id number] Output: Output, Urine Am ount 800 / 800 Other: Breakfast % Eate n 100% 100% Number of Unmeas ured Voids 1 Number of Bowel Movements 1 Number of Incont inent Bowel 5 Movements Urine Bedside Commode Urine Color Yellow Last Bowel Movem ent 01/16/20 Stool Bedside Commode Stool Color Green Brown Stool Consistenc y Liquid Loose Body Mass Index 25.9 Const: General: cooperative, healthy appearing, comfortable and no acute distress Nutritional Appearance: average body habitus Orientation/consciousness: patient oriented x3 Limitations: no limitations HENMT: Head: Yes normal to inspection Ears: hearing grossly normal bilaterally General nose exam: Normal external nose present Face and sinus: Yes normal facial exam Eyes: General: appearance normal, both eyes and all related structures Pupils: Equal, round and reactive pupils present Neck: Neck: Yes normal visual inspection Resp: Effort & Inspection: normal respiratory effort and able to speak in complete sentences Auscultation: clear to auscultation bilaterally Cardio: Rate: regular rate Rhythm: abnormal rhythm irregularly irregular GI: Inspection: Yes normal to inspection Palpation (GI): Soft to palpation and nontender Auscultation: normal bowel sounds Skin: General skin exam: no rashes or lesions noted Neuro: General: patient oriented x3 Cranial nerves: Yes Equal, round and reactive pupils present Cognition (Neuro): normal cognition Extrem: General: Yes normal to inspection, Yes no pedal edema and Yes no calf tenderness Psych: Appearance: grossly normal Mental Status: mental status grossly normal Objective Data Current Medications Generic Name Dose Route Start Last Admin Trade Name Freq PRN Reason Stop Dose Admin Acetaminophen 650 mg 01/16/20 02:22 Acetaminophen 650 Mg Supp.Rect [place] Q6H PRN Pain, Mild (Pain Scale 1-3) Atorvastatin Calcium 20 mg 01/16/20 09:00 01/17/20 08:33 Atorvastatin Calcium 20 Mg Tablet PO 20 mg DAILY TRAV Administration Heparin Sodium (Porcine) 5,000 unit 01/16/20 03:00 01/17/20 03:00 Heparin Sodium,Porcine 5,000 Unit/Ml Vial SUBCUT 5,000 unit Q12H TRAV Administration Sodium Chloride 1,000 mls @ 100 mls/hr 01/16/20 00:47 01/17/20 08:28 Ns IVCONT 100 mls/hr .Q10H TRAV Administration Ceftriaxone Sodium 1 gm/ 50 mls @ 100 mls/hr 01/16/20 11:30 01/16/20 12:06 Sodium Chloride IV Infused Q24H TRAV Infusion Metronidazole 500 mg in 100 mls @ 100 mls/hr 01/16/20 11:30 01/17/20 05:30 Flagyl IV Infused Q8H TRAV Infusion Loperamide HCl 2 mg 01/16/20 11:27 01/17/20 04:35 Loperamide Hcl 2 Mg Capsule PO 2 mg Q6H PRN Administration Diarrhea Metoprolol Succinate 50 mg 01/16/20 09:00 01/17/20 08:33 Metoprolol Succinate Er 50 Mg Tab.Er.24h PO 50 mg DAILY [facility] Administration Protocol Morphine Sulfate 4 mg 01/16/20 02:22 Morphine Sulfate 4 Mg/Ml Cartridge IVPUSH Q4H PRN Pain, Severe (Pain Scale 7-10) Patient Own 1 each 01/16/20 09:00 Medication ( PO Raloxifene 60 Mg) DAILY [facility] Omeprazole 20 mg 01/16/20 09:00 01/17/20 08:33 Omeprazole 20 Mg Capsule.Dr PO 20 mg DAILY [facility] Administration Ondansetron HCl 4 mg 01/16/20 03:00 Ondansetron Hcl 4 Mg/2 Ml Vial IVPUSH Q8H PRN Nausea and Vomiting Oxycodone HCl 5 mg 01/16/20 02:22 Oxycodone Hcl Immed Release 5 Mg Tablet PO Q6H PRN Pain, Severe (Pain Scale 7-10) Sodium Chloride 2 ml 01/16/20 08:00 01/17/20 08:31 0.9 % Sodium Chloride Flush 3 Ml Syringe IVFLUSH Not Given QSHIFT [facility] Warfarin Sodium 5 mg 01/16/20 18:00 01/16/20 18:19 Warfarin Sodium 5 Mg Tablet PO 5 mg DAILY@1800 [facility] Administration Labs CBC & Chem 7: 01/17/20 04:47 01/17/20 04:47 Labs: Laboratory Results - last 24 hr 01/17/20 01/17/20 01/17/20 04:47 04:47 04:47 MCV 90.2 MCH 30.2 MCHC 33.5 RDW 13.6 Plt Count 149 L MPV 10.0 Immature Gran % (Auto) 1.4 H Neut % (Auto) 67.8 Lymph % (Auto) 17.6 L [place] % (Auto) 12.2 H Eos % (Auto) 0.5 Baso % (Auto) 0.5 Neut # (Auto) 2.9 Lymph # (Auto) 0.8 L [place] # (Auto) 0.5 Eos # (Auto) 0.0 Baso # (Auto) 0.0 Abs Immat Gran (auto) 0.06 H Absolute Nucleated RBC 0.000 Nucleated RBC % (auto) 0.0 PT 16.7 H INR 1.4 H Anion Gap 12 Estim Creat Clear Calc 23.9 Estimated GFR 34 Random Glucose 86 Calcium 6.9 L Microbiology Microbiology Results: Microbiology 01/15/20 20:54 Blood - Venous Blood Culture - Preliminary No growth after 24 hours. 01/15/20 20:54 Blood - Venous Blood Culture - Preliminary No growth after 24 hours. 01/15/20 22:14 Stool Stool Culture - Preliminary No stool pathogens to date. Assessment and Plan (1) Colitis: Status: Acute (2) Atrial fibrillation with RVR: Status: Acute (3) Acute kidney injury superimposed on CKD: Status: Acute (4) Hiatal hernia: Status: Acute (5) High cholesterol: Status: Acute (6) Hypertension: Status: Acute Assessment and Plan: 85-year-old female presented with diarrhea colitis diarrhea improved C diff negative can continue loperamide for symptoms continue ceftriaxone and Flagyl advanced to low residue diet AFib with RVR now rate controlled continue with beta-rachell and Coumadin ( subtherapeutic, continue DVT prophylaxis until INR greater than 1.8) JUWAN on CKD improved with IV fluids
[2020-01-17] MEDS: cefTRIAXone sodium 1 GM in 0.9 % Sodium Chloride 50 ML IV (13:38)
[2020-01-17] MEDS: Warfarin Sodium 5 MG TABLET PO (17:07)
[2020-01-17] MEDS: 0.9 % Sodium Chloride Flush 3 ML SYRINGE 2 ML IVFLUSH (17:07)
[2020-01-18] VITALS (13 sets, daily range): BP systolic 99–130; BP diastolic 64–79; PULSE 93–120; RESP 16–20; TEMP 36.1–36.9; O2SAT 92–98
[2020-01-18] MEDS: 0.9 % Sodium Chloride Flush 3 ML SYRINGE 2 ML IVFLUSH ×3 (01:18→16:15)
[2020-01-18] MEDS: Heparin Sodium,Porcine 5,000 UNIT/ML VIAL 5000 UNIT SUBCUT (03:25)
[2020-01-18] MEDS: metroNIDAZOLE/NS 500 MG/100 ML PIGGYBACK 100 MG IV (03:25)
[2020-01-18 06:51] LABS: MANUAL DIFF FLAG NO
[2020-01-18 06:59] LABS: Basophils Percent Auto 0.8 % (0-2); Eosinophils Absolute Auto 0.1 X10*3/uL (0.0-0.4); Eosinophils Percent Auto 1.3 % (0-4); Hematocrit 34.1 % (37-47); Hemoglobin 11.4 g/dl (12.0-16.0); Imm Gran Abs Auto 0.16 X10*3/uL (0.00-0.03); Lymphocytes Absolute Auto 0.7 X10*3/uL (1.2-4.9); Lymphocytes Percent Auto 17.8 % (20-40); Mean Corpuscular HGB Conc 33.4 g/dl (31.0-35.0); Mean Corpuscular Hemoglobin 29.8 pg (27.0-33.0); Mean Corpuscular Volume 89.3 fL (80-98); Mean Platelet Volume 10.5 fL (9.4-12.3); Monocytes Absolute Auto 0.5 X10*3/uL (0.1-1.2); Monocytes Percent Auto 12.1 % (2-11); Neutrophils Absolute Auto 2.6 X10*3/uL (2.0-8.3); Platelet Count 175 X10*3/uL (160-400); Red Blood Count 3.82 X10*6/uL (4.20-5.50)
[2020-01-18 07:11] LABS: INTERNATIONAL NORM RATIO 2.2 (0.9-1.1)
[2020-01-18 07:43] LABS: Anion Gap 11 (12-20); Blood Urea Nitrogen 29 mg/dL (9-16); Calcium 7.2 mg/dL (8.4-10.2); Carbon Dioxide 15 mmol/L (22-29); Chloride 116 mmol/L (96-108); Creatinine Clr Calc Pharmacy 27.2; Estimated Glomerular Filt Rate 39; Glucose Fasting 102 mg/dL (60-99); Potassium 3.4 mmol/l (3.3-5.1); Sodium 139 mmol/L (135-145)
[2020-01-18] MEDS: Omeprazole 20 MG CAPSULE.DR PO (08:24)
[2020-01-18] MEDS: Atorvastatin Calcium 20 MG TABLET PO (08:24)
[2020-01-18] MEDS: Metoprolol Succinate ER 50 MG TAB.ER.24H PO ×2 (08:24→21:30)
[2020-01-18] MEDS: Sodium Bicarbonate 650 MG TABLET PO ×3 (10:21→21:29)
[2020-01-18] MEDS: Metoprolol Succinate ER 25 MG TAB.ER.24H PO (10:21)
[2020-01-18] MEDS: cefTRIAXone sodium 1 GM in 0.9 % Sodium Chloride 50 ML IV (10:29)
[2020-01-18] MEDS: Azithromycin 500 MG TABLET PO (11:54)
--- NOTE | 2020-01-18 13:37 | HO.PM.IMPN ---
Subjective Subjective Date of Service: 01/18/20 Interval History: feeling much better, no longer having any diarrhea Cardiovascular Cardiovascular: Reports no additional cardiovascular complaints Respiratory Respiratory: Reports no additional respiratory complaints Physical Exam Vital Signs and I&O and Narrative: Vital Signs and I&O: Vital Signs Temp 97.2 F 01/18/20 11:36 Pulse 109 H 01/18/20 11:36 Resp 18 01/18/20 11:36 BP 111/74 01/18/20 11:36 Pulse Ox 93 01/18/20 11:36 Intake & Output 01/17/20 01/18/20 01/18/20 18:59 06:59 18:59 Intake Total 1922 / 2462 540 / 2462 400.000 / 400.000 Output Total 350 / 900 550 / 900 250 / 250 Balance 1572 / 1562 -1561 150.000 / 150.000 Urine Output (Aver age ml/kg/hr) 0.47 0.74 0.33 Intake: Intake, Oral [place] unt 180 / 520 340 / 520 350 / 350 Intake, IV Amoun t 174 / 1942 200 / 1942 50.000 / 50.000 cefTRIAXone so dium 1 gm In 0.9 50 / 50 50.000 / 50.000 % Sodium Chlor gianluca 50 ml @ 100 mls/hr IV Q24H TRAV Rx#: [id number] metroNIDAZOLE/ NS 500 mg In 100 100 / 300 200 / 300 ml @ 100 mls/h r IV Q8H TRAV Rx#: [id number] 0.9 % Sodium C hloride 1,000 ml 1592 / 1592 @ 100 mls/hr I VCONT .Q10H TRAV Rx#:[id number] Output: Output, Urine Am ount 350 / 900 550 / 900 250 / 250 Other: Meal Refused No NPO No Breakfast % Eate n 100% 100% Lunch % Eaten 50% 100% Number of Bowel Movements 1 1 Urine Bedside Commode Bedside Commode Bedside Commode Urine Color Yellow Yellow Last Bowel Movem ent 01/18/20 Stool Bathroom Bedside Commode Bedside Commode Stool Color Dark Brown Stool Consistenc y Loose Body Mass Index 25.9 General: AO X 3, no acute distress Resp: CTA bilateral CVS: rapid irregular GI: soft, non tender, non distended Neuro: motor grossly intact Psych: appropriate affect Objective Data Current Medications Generic Name Dose Route Start Last Admin Trade Name Freq PRN Reason Stop Dose Admin Acetaminophen 650 mg 01/16/20 02:22 Acetaminophen 650 Mg Supp.Rect [place] Q6H PRN Pain, Mild (Pain Scale 1-3) Atorvastatin Calcium 20 mg 01/16/20 09:00 01/18/20 08:24 Atorvastatin Calcium 20 Mg Tablet PO 20 mg DAILY TRAV Administration Azithromycin 500 mg 01/18/20 12:00 01/18/20 11:54 Azithromycin 500 Mg Tablet PO 500 mg Q24H TRAV Administration Loperamide HCl 2 mg 01/16/20 11:27 01/17/20 04:35 Loperamide Hcl 2 Mg Capsule PO 2 mg Q6H PRN Administration Diarrhea Metoprolol Succinate 50 mg 01/18/20 21:00 Metoprolol Succinate Er 50 Mg Tab.Er.24h PO BID [facility] Protocol Morphine Sulfate 4 mg 01/16/20 02:22 Morphine Sulfate 4 Mg/Ml Cartridge IVPUSH Q4H PRN Pain, Severe (Pain Scale 7-10) Omeprazole 20 mg 01/16/20 09:00 01/18/20 08:24 Omeprazole 20 Mg Capsule.Dr PO 20 mg DAILY [facility] Administration Ondansetron HCl 4 mg 01/16/20 03:00 Ondansetron Hcl 4 Mg/2 Ml Vial IVPUSH Q8H PRN Nausea and Vomiting Oxycodone HCl 5 mg 01/16/20 02:22 Oxycodone Hcl Immed Release 5 Mg Tablet PO Q6H PRN Pain, Severe (Pain Scale 7-10) Sodium Bicarbonate 650 mg 01/18/20 09:45 01/18/20 10:21 Sodium Bicarbonate 650 Mg Tablet PO 650 mg TID TRAV Administration Sodium Chloride 2 ml 01/16/20 08:00 01/18/20 08:24 0.9 % Sodium Chloride Flush 3 Ml Syringe IVFLUSH 2 ml QSHIFT TRAV Administration Warfarin Sodium 5 mg 01/16/20 18:00 01/17/20 17:07 Warfarin Sodium 5 Mg Tablet PO 5 mg DAILY@1800 [facility] Administration Labs CBC & Chem 7: 01/18/20 06:03 01/18/20 06:03 Labs: Laboratory Results - last 24 hr 01/18/20 01/18/20 01/18/20 06:03 06:03 06:03 MCV 89.3 MCH 29.8 MCHC 33.4 RDW 14.0 Plt Count 175 MPV 10.5 Immature Gran % (Auto) 4.0 H Neut % (Auto) 64.0 Lymph % (Auto) 17.8 L [place] % (Auto) 12.1 H Eos % (Auto) 1.3 Baso % (Auto) 0.8 Neut # (Auto) 2.6 Lymph # (Auto) 0.7 L [place] # (Auto) 0.5 Eos # (Auto) 0.1 Baso # (Auto) 0.0 Abs Immat Gran (auto) 0.16 H Absolute Nucleated RBC 0.000 Nucleated RBC % (auto) 0.0 PT 26.0 H D INR 2.2 H Anion Gap 11 L Estim Creat Clear Calc 27.2 Estimated GFR 39 Fasting Glucose 102 H Calcium 7.2 L Microbiology Microbiology Results: Microbiology 01/15/20 22:14 Stool Stool Culture - Preliminary Campylobacter species 01/15/20 20:54 Blood - Venous Blood Culture - Preliminary No growth after 48 hours. 01/15/20 20:54 Blood - Venous Blood Culture - Preliminary No growth after 48 hours. Assessment and Plan (1) Acute kidney injury superimposed on CKD: Status: Acute (2) Colitis: Status: Acute (3) Atrial fibrillation with RVR: Status: Acute Assessment and Plan: 85-year-old female presented with diarrhea colitis culture growing Campylobacter diarrhea improved C diff negative will change to azithromycin non-anion gap metabolic acidosis due to diarrhea oral bicarb and monitor AFib with RVR increased rate now will increase Toprol to 50 b.i.d. monitor JUWAN on CKD improved with IV fluids
--- NOTE | 2020-01-18 14:13 | PC.NURSE ---
At 1400 Pt ambulated down hallway with brother. Pt went into a rapid AFIB rate in the 160's-170's. Pt did report some SOB. Pt escorted back to her room. notified. No new orders at this time. Pt's heart rate prior to ambulation has been an AFIB with a rate of 100-115. Pt's heart rate down to 117. Pt resting comfortably in recliner. No SOB at this time. Will continue to monitor.
[2020-01-18] MEDS: Warfarin Sodium 5 MG TABLET PO (17:22)
--- NOTE | 2020-01-18 23:33 | PC.NURSE ---
Medication from 01/15 marked not given due back load cleanup
[2020-01-19] MEDS: 0.9 % Sodium Chloride Flush 3 ML SYRINGE 2 ML IVFLUSH ×2 (00:35→08:14)
[2020-01-19 03:50] VITALS: BP 137/83; PULSE 102; RESP 16; TEMP 36.7; O2SAT 94
[2020-01-19 04:00] VITALS: O2SAT 93
[2020-01-19 06:20] LABS: Hematocrit 33.6 % (37-47); Hemoglobin 11.2 g/dl (12.0-16.0); Mean Corpuscular HGB Conc 33.3 g/dl (31.0-35.0); Mean Corpuscular Hemoglobin 29.5 pg (27.0-33.0); Mean Corpuscular Volume 88.4 fL (80-98); Platelet Count 175 X10*3/uL (160-400); Red Cell Distribution Width 14.2 % (11.0-16.0); White Blood Count 4.7 X10*3/uL (4.8-10.8)
[2020-01-19 06:25] LABS: Prothrombin Time 35.9 SEC (10.8-13.0)
[2020-01-19 06:50] LABS: Anion Gap 10 (12-20); Blood Urea Nitrogen 34 mg/dL (9-16); Calcium 7.7 mg/dL (8.4-10.2); Carbon Dioxide 18 mmol/L (22-29); Chloride 115 mmol/L (96-108); Estimated Glomerular Filt Rate 42; Glucose Fasting 110 mg/dL (60-99); Magnesium 1.7 mg/dL (1.6-2.6); Potassium 3.5 mmol/l (3.3-5.1); Sodium 139 mmol/L (135-145)
[2020-01-19 07:23] LABS: Band Neutrophils Percent 12 % (3-5); Basophils Percent Manual 1 % (0-1); Eosinophils Percent Manual 1 % (0-4); Lymphocytes Absolute Manual 0.6 X10*3/uL (0.6-4.8); Lymphocytes Percent Manual 12 % (20-40); Metamyelocytes Absolute 0.2 X10*3/uL; Metamyelocytes Percent 4 %; Monocytes Absolute Manual 0.2 X10*3/uL (0.0-1.2); Monocytes Percent Manual 5 % (2-11); Myelocytes Percent 1 %; Neutrophils Absolute Manual 3.6 X10*3/uL (2.2-7.9); Neutrophils Percent Manual 64 % (45-73)
[2020-01-19 07:25] LABS: Acanthocytes 1+; RBC Morphology NOTED
[2020-01-19 07:26] LABS: Platelet Estimate NORMAL (NORMAL); Platelet Morphology Comment NORMAL
[2020-01-19 07:27] LABS: Ovalocytes 1+
[2020-01-19 07:43] VITALS: BP 131/85; PULSE 104; RESP 20; TEMP 36.7; O2SAT 93
[2020-01-19] MEDS: Omeprazole 20 MG CAPSULE.DR PO (08:12)
[2020-01-19] MEDS: Metoprolol Succinate ER 50 MG TAB.ER.24H PO (08:12)
[2020-01-19] MEDS: Sodium Bicarbonate 650 MG TABLET PO (08:12)
[2020-01-19] MEDS: Atorvastatin Calcium 20 MG TABLET PO (08:12)
[2020-01-19] MEDS: Magnesium Oxide 400 MG TABLET 800 MG PO (09:53)
[2020-01-19] MEDS: Azithromycin 500 MG TABLET PO (11:03)
--- NOTE | 2020-01-19 11:28 | MHC.CM.PN ---
CM met with patient re: choices for home care. [facility] choice [facility]. [facility]. CM will continue to follow for discharge plan.
[2020-01-19 11:55] VITALS: BP 128/83; PULSE 117; RESP 18; TEMP 36.7; O2SAT 93
[2020-01-19 12:00] VITALS: O2SAT 93; O2SAT 96
--- NOTE | 2020-01-19 12:06 | PM.DS ---
DS: Providers Provider Date of admission: 01/16/20 01:42 Primary care physician: Ruben Dick PA-C DS: Diagnosis Discharge Diagnosis (1) Acute kidney injury superimposed on CKD: Status: Acute (2) Colitis: Status: Acute (3) Atrial fibrillation with RVR: Status: Acute DS: Summary Hospital Course Hospital Course: patient was admitted for colitis complicated by AFib with RVR. She was initially started on Cardizem drip. Heart rate became better controlled, her Toprol was increased from 50 mg daily to 100 mg daily. Her rate is still increases on exertion but at rest is under 100 beats per minute. For her colitis she had a stool culture that was positive for Campylobacter. She was transitioned to oral azithromycin and will complete 3 more days. Her diarrhea and abdominal pain has resolved. Patient also had some acute kidney injury on admission which resolved with IV fluids. Time Spent with Patient Time attestation: Total time spent providing and/or coordinating discharge services: Physical Exam Vital Signs and I&O and Narrative: Vital Signs and I&O: Vital Signs Temp 98.0 F 01/19/20 11:55 Pulse 117 H 01/19/20 11:55 Resp 18 01/19/20 11:55 BP 128/83 01/19/20 11:55 Pulse Ox 93 01/19/20 11:55 Intake & Output 01/18/20 01/19/20 01/19/20 18:59 06:59 18:59 Intake Total 400.000 / 500.000 100 / 500.000 Output Total 950 / 1450 500 / 1450 Balance -550.000 / -950.00 0 -400 / -950.000 Urine Output (Aver age ml/kg/hr) 1.27 0.67 Intake: Intake, Oral Viji unt 350 / 450 100 / 450 Intake, IV Amoun t 50.000 / 50.000 0 / 50.000 cefTRIAXone so dium 1 gm In 0.9 50.000 / 50.000 % Sodium Chlor gianluca 50 ml @ 100 mls/hr IV Q24H TRAV Rx#: [id number] dilTIAZem HCL 125 mg In 0.9 % 0 / 0 Sodium Chlorid e 100 ml @ Per Protocol IVCON T .Q0M TRAV Rx#: [id number] Output: Output, Urine Am ount 950 / 1450 500 / 1450 Other: Meal Refused No NPO No Breakfast % Eate n 100% Lunch % Eaten 100% Dinner % Eaten 100% Number of Bowel Movements 1 1 Urine Bedside Commode Last Bowel Movem ent 01/18/20 Stool Bedside Commode Bathroom Stool Color Brown Stool Consistenc y flecks Body Mass Index 25.9 General: AO X 3, no acute distress Resp: CTA bilateral CVS: irregular rythem GI: soft, non tender, non distended Neuro: motor grossly intact Psych: appropriate affect DS: Data Data Completed and Pending Labs on day of discharge: Labs from last 24 hours 01/19/20 01/19/20 01/19/20 05:44 05:44 05:44 WBC 4.7 L RBC 3.80 L Hgb 11.2 L Hct 33.6 L MCV 88.4 MCH 29.5 MCHC 33.3 RDW 14.2 Plt Count 175 MPV 10.0 Absolute Nucleated RBC 0.000 Nucleated RBC % (auto) 0.0 Neutrophils % (Manual) 64 Band Neutrophils % 12 H Lymphocytes % (Manual) 12 L Monocytes % (Manual) 5 Eosinophils % (Manual) 1 Basophils % (Manual) 1 Metamyelocytes % 4 Myelocytes % 1 Neutrophils # (Manual) 3.6 Lymphocytes # (Manual) 0.6 Monocytes # (Manual) 0.2 Metamyelocytes # 0.2 Platelet Estimate NORMAL Plt Morphology Comment NORMAL RBC Morphology NOTED Ovalocytes 1+ Acanthocytes (Spur) 1+ PT 35.9 H D INR 3.0 H Sodium 139 Potassium 3.5 Chloride 115 H Carbon Dioxide 18 L Anion Gap 10 L BUN 34 H Creatinine 1.22 Estim Creat Clear Calc 29.0 Estimated GFR 42 Fasting Glucose 110 H Calcium 7.7 L Magnesium 1.7 Preliminary micro results at discharge 01/15/20 22:14 Stool Culture - Preliminary Stool Campylobacter species 01/15/20 20:54 Blood Culture - Preliminary Blood - Venous No growth after 48 hours. 01/15/20 20:54 Blood Culture - Preliminary Blood - Venous No growth after 48 hours. Discharge Plan Discharge Patient Disposition: Home Health Service Referrals: Ruben Dick PA-C [Primary Care Provider] - Discharge Medications: New azithromycin 500 mg Tablet 500 mg PO Q24H Qty: 3 RF: 0 Continued atorvastatin 20 mg tablet 1 tab PO DAILY RF: 0 omeprazole 20 mg capsule,delayed release(DR/EC) 1 cap PO DAILY RF: 0 raloxifene 60 mg tablet 60 mg PO DAILY RF: 0 Changed metoprolol succinate 50 mg tablet extended release 24 hr 2 tab PO DAILY Qty: 0 RF: 0 Held warfarin 2 mg tablet 4 mg PO DAILY RF: 0 Hold Instructions: Resume on 01/20/20. monitor inr closely Discontinued amlodipine 10 mg tablet 1 tab PO DAILY RF: 0 Discharge Orders: Discharge Order (Routine); Ordered 01/19/20 Ordered By: Jordy Henry Diet: advance to your usual diet Activity on Discharge: As tolerated Visit Report Forms: Patient Portal Discharge page Care Plan Goals: recovery Health Concerns: colitis, afib Plan of Treatment: 3 more days of azithromycin
--- NOTE | 2020-01-19 12:28 | MHC.CM.PN ---
Patient will be discharged home today with services from [facility]. Family will provide transport.
--- NOTE | 2020-01-19 12:35 | W.MHC.F2F ---
Service Date Service Date: 01/19/20 Reasons for Services MD overseeing care: akil maria del carmen Homebound: Leaving the home is medically contraindicated at this time without the asist of a device and/or another person due th the listed conditions above and below. Certification: Based on the above findings, I certify that this patient is confined to the home and needs intermittent jail care, physical therapy and/or speech therapy, or continues to need occupational therapy. The patient is under my care, and I have initiated the establishment of the plan of care. The patient will be followed by a physician who will periodically review the plan of care.
== END 2020-01-19 13:53 | disposition home health service (06) | DRG 372 ==
LOC: HO.ED 01-16 00:38 → HO.IMC 01-16 01:43
PROVIDERS: Nurse Practitioner Family; Physician Assistant; Admitting Provider Internal Medicine; Emergency Provider Emergency Medicine; PCP Physician Assistant; Visit Provider Internal Medicine
DX: A04.5 Campylobacter enteritis (principal); I48.11 Longstanding persistent atrial fibrillation; N17.9 Acute kidney failure, unspecified; E87.2 Acidosis; K21.9 Gastro-esophageal reflux disease without esophagitis; R79.1 Abnormal coagulation profile; E78.00 Pure hypercholesterolemia, unspecified; K44.9 Diaphragmatic hernia without obstruction or gangrene; I12.9 Hypertensive chronic kidney disease with stage 1 through stage 4 chronic kidney disease, or unspecified chronic kidney disease; N18.9 Chronic kidney disease, unspecified; Z79.01 Long term (current) use of anticoagulants; Z79.899 Other long term (current) drug therapy
CPT/HCPCS: 36415; 74176; 80048; 80076; 83605; 83690; 83735; 84484; 85007; 85025; 85027; 85610; 85730; 87040; 87045; 87046; 87077; 87177; 87209; 87324; 87449; 93005; 93010; 99284; J0696

== ENCOUNTER → 2020-01-22 10:50 | Outpatient (BNVA) | payer MEDICARE, SELFPAY | PROVIDERS: PCP Physician Assistant; Visit Provider Internal Medicine | DX: I48.20 Chronic atrial fibrillation, unspecified (principal); Z51.81 Encounter for therapeutic drug level monitoring; Z79.01 Long term (current) use of anticoagulants | CPT/HCPCS: 85610 ==

== ENCOUNTER → 2020-02-12 09:48 | Outpatient (BNVA) | payer MEDICARE, SELFPAY | PROVIDERS: PCP Physician Assistant; Visit Provider Internal Medicine | DX: R06.02 Shortness of breath (principal); I48.19 Other persistent atrial fibrillation; I50.32 Chronic diastolic (congestive) heart failure; I11.0 Hypertensive heart disease with heart failure; I36.2 Nonrheumatic tricuspid (valve) stenosis with insufficiency; I27.20 Pulmonary hypertension, unspecified; E78.00 Pure hypercholesterolemia, unspecified; K21.9 Gastro-esophageal reflux disease without esophagitis; Z98.890 Other specified postprocedural states; Z79.02 Long term (current) use of antithrombotics/antiplatelets; R94.39 Abnormal result of other cardiovascular function study | CPT/HCPCS: 93005; 99212 ==

== ENCOUNTER 2020-02-12 10:39 | Inpatient (IN) | payer MEDICARE, SELFPAY ==
[2020-02-12] VITALS (12 sets, daily range): BP systolic 101–130; BP diastolic 59–83; PULSE 77–140; RESP 16–24; TEMP 36.6–36.7; O2SAT 90–96; BMI 25.0; BMI 26.4
--- NOTE | 2020-02-12 | ECG_ITS ---
Test Reason : RAPID AFIB Blood Pressure : / mmHG Vent. Rate : 091 BPM Atrial Rate : 102 BPM P-R Int : 000 ms QRS Dur : 080 ms QT Int : 366 ms P-R-T Axes : 000 038 027 degrees QTc Int : 450 ms Atrial fibrillation Low voltage QRS Nonspecific ST abnormality Nonspecific T wave abnormality Anterior leads Abnormal ECG When compared with ECG of 12-FEB-2020 10:56, Heart rate has decreased Referred By: Laura Denton Electronically Signed By:CAREY ABAD MD
--- NOTE | 2020-02-12 11:11 | XR_ITS ---
EXAMINATION: XR CHEST CLINICAL INFORMATION: AFIB, shortness of breath COMPARISON: Chest radiographs 08/20/2017, 03/12/2017 TECHNIQUE: Portable upright AP view of the chest was obtained. FINDINGS: There is mild hyperinflation. The vascularity is normal. There is no vascular congestion, airspace consolidation, groundglass opacity, or effusion. There is large hiatal hernia again seen retrocardiac region. The cardiac and hilar and mediastinal contours and visualized bony structures are similar to prior exam. XR/XR chest 1V IMPRESSION: No acute intrathoracic disease.
--- NOTE | 2020-02-12 11:12 | ED.ARRPALP ---
HPI - Arrhythmia/Palpitations General Chief Complaint: Arrhythmia/Palpitations Stated Complaint: rapid afib Time Seen by Provider: 02/12/20 10:59 Source: patient Mode of arrival: ambulatory Limitations: no limitations History of Present Illness HPI narrative: patient comes to emergency room complaining palpitations, shortness of breaths. Patient states she was recently discharged from the hospital for colitis, sent home and was doing well. Approximately 4 days ago, patient is visiting nurse told the patient that she had a rapid heart rate and was advised to schedule an office visit with cardiology which she did today. Dr. Child called us to let us know that the patient is in AFib with RVR. Patient takes metoprolol at home and is currently on Coumadin. At this time, patient states that she does not have any chest pain, no shortness of breath. Patient states she has noticed in the last few days that whenever she walks up the stairs in her house she gets tired quickly in short of breath. Related Data Home Medications Medication Instructions Recorded Confirmed atorvastatin 1 tab PO DAILY 01/15/20 02/12/20 omeprazole 1 cap PO DAILY 01/15/20 02/12/20 raloxifene 60 mg PO DAILY 01/15/20 02/12/20 warfarin 4 mg PO DAILY 01/15/20 02/12/20 amlodipine 10 mg tablet 10 mg PO DAILY 02/12/20 02/12/20 Previous Rx's Medication Instructions Recorded metoprolol succinate 2 tab PO DAILY #0 tab 01/19/20 warfarin 2 mg tablet 2 mg PO DAILY #90 tab 01/22/20 Allergies Allergy/AdvReac Type Severity Reaction Status Date / Time No Known Allergies Allergy Verified 02/12/20 10:00 [No Known Allergies*] Review of Systems Review of Systems: Constitutional : No Weight loss, No Fever, No Chills, No Night Sweats, complaining of 4 days of fatigue ENT/Mouth : No Hearing loss, No Ear Pain, No Nasal Congestion, No Sinus Pain, No Hoarseness, No sore throat, No Rhinorrhea, No Swallowing Difficulty Eyes: No Eye Pain, No Swelling, No Redness, No Foreign Body, No Discharge, No Vision Changes Cardiovascular : No Chest Pain, complaining of palpitations, mild shortness of breath with exertion Respiratory : No Cough, No Sputum, No Wheezing, No Smoke Exposure Gastrointestinal : No Nausea, No Vomiting, No Diarrhea, No Constipation, No abdominal Pain, No Hematochezia, No Melena Genitourinary : no irregular bleeding, No Dysuria, No Urinary Frequency, No Hematuria, No Urinary Incontinence, No Urgency, No Flank Pain, No Urinary Flow Changes, No Hesitancy Musculoskeletal : No joint pain, No Myalgias, No Joint Swelling Skin : No Skin Lesions, No rash Neuro : No Weakness, No Numbness, No Paresthesias, No Loss of Consciousness, No Dizziness, No Headache Psych : No Anxiety/Panic, No Depression, No SI/HI/AH/VH, No Social Issues, Heme/Lymph: No Bruising, No Bleeding,No Lymphadenopathy Endocrine : No Polyuria, No Polydipsia, No Temperature Intolerance Yes all other systems are reviewed and are negative [facility] Past Medical History Medical History Abnormal myocardial perfusion study Atrial fibrillation Chronic heart failure with preserved ejection fraction (HFpEF) Diverticulitis Essential hypertension Gastro-esophageal reflux disease without esophagitis Hiatal hernia High cholesterol History of cardioversion Hypertension Non-rheumatic tricuspid stenosis with insufficiency Persistent atrial fibrillation Pulmonary hypertension Surgical History H/O mastectomy Social History Social History Household Members: None Housing: Apartment Alcohol intake: never Smoking Status: Never smoker Smoked in Last 30 Days: No Use of substances other than those prescribed or required for medical reasons: No Advance Directives: Yes (On File) Advance Directives on File: Yes Advance Directives Date on File: 01/16/20 service: No Current occupational status: retired Physical Exam Vital Signs: Vital Signs: Vital Signs Temp Pulse Resp BP Pulse Ox 02/12/20 12:59 123 H 105/81 95 02/12/20 12:58 139 H 24 H 90 L 02/12/20 12:02 91 101/59 L 95 02/12/20 11:57 123 H 119/80 02/12/20 11:26 131 H 111/76 02/12/20 11:19 133 H 117/80 02/12/20 11:05 98.1 F 140 H 20 130/83 95 Body Mass Index 25.0 Appearance: Alert. Oriented X3. No acute distress. Eyes: Pupils equal, round and reactive to light. ENT: Pharynx normal. Neck: Normal inspection. Neck supple. No lymph nodes noted. No crepitus CVS: irregular rhythm, tachycardic. heart rate in the 130s Respiratory: No respiratory distress. Breath sounds normal. No Wheezing. No rales Abdomen: Soft and nontender. No rigidity. No distention. good BS x4 Skin: Skin warm and dry. ecchymosis in lower extremities Extremities: No lower extremity edema. No lower extremity edema. No Lacerations. No Rash Neuro: Oriented X 3. No motor deficit. No sensory deficit. Moving all extermities. No slurred speech. Course Course Course Narrative: patient received 1 dose of IV metoprolol 5 mg, her heart rate improved from the 140s to 120s, then she was given 1 dose of 10 mg IV Cardizem, her heart rate improved to the 90s, patient was asymptomatic. However when patient stands up and starts walking, her heart rate goes up to the 140s and is very short of breath with no chest pain. Address, her heart rate is anywhere between 90 and 140, raises rapidly with any movement. I spoke with Dr. Child and will go ahead and start her on Cardizem drip. MDM - Arrhythmia/Palpitations Lab Data Result diagrams: 02/12/20 11:16 02/12/20 11:16 Labs: Lab Results 02/12/20 02/12/20 02/12/20 Range/Units 11:16 11:16 11:16 WBC 8.9 (4.8-10.8) X10*3/uL RBC 4.88 D (4.20-5.50) X10*6/uL Hgb 14.4 D (12.0-16.0) g/dl Hct 44.9 D (37-47) % MCV 92.0 (80-98) fL MCH 29.5 (27.0-33.0) pg MCHC 32.1 (31.0-35.0) g/dl RDW 14.2 (11.0-16.0) % Plt Count 310 D (160-400) X10*3/uL MPV 10.1 (9.4-12.3) fL Immature Gran % (Auto) 2.4 H (0.0-0.4) % Neut % (Auto) 64.8 (45-73) % Lymph % (Auto) 18.5 L (20-40) % [place] % (Auto) 11.8 H (2-11) % Eos % (Auto) 1.6 (0-4) % Baso % (Auto) 0.9 (0-2) % Lymph # (Auto) 1.7 (1.2-4.9) X10*3/uL [place] # (Auto) 1.1 (0.1-1.2) X10*3/uL Eos # (Auto) 0.1 (0.0-0.4) X10*3/uL Baso # (Auto) 0.1 (0.0-0.2) X10*3/uL Abs Immat Gran (auto) 0.21 H (0.00-0.03) X10*3/uL Absolute Neuts (auto) 5.8 (2.0-8.3) X10*3/uL Absolute Nucleated RBC 0.000 (0.0-0.012) X10*3/uL Nucleated RBC % (auto) 0.0 (0.0-0.2) /100WBC PT 36.5 H (10.8-13.0) SEC INR 3.0 H (0.9-1.1) Sodium 138 (135-145) mmol/L Potassium 4.1 (3.3-5.1) mmol/l Chloride 105 (96-108) mmol/L Carbon Dioxide 19 L (22-29) mmol/L Anion Gap 18 (12-20) BUN 27 H (9-16) mg/dL Creatinine 1.66 H (0.5-1.4) mg/dL Estim Creat Clear Calc 20.1 Estimated GFR 29 Random Glucose 138 H D (60-115) mg/dL Calcium 10.3 H (8.4-10.2) mg/dL Troponin I High Sens (<3.5-17.0) ng/L B-Natriuretic Peptide (<100) pg/mL 02/12/20 Range/Units 11:16 WBC (4.8-10.8) X10*3/uL RBC (4.20-5.50) X10*6/uL Hgb (12.0-16.0) g/dl Hct (37-47) % MCV (80-98) fL MCH (27.0-33.0) pg MCHC (31.0-35.0) g/dl RDW (11.0-16.0) % Plt Count (160-400) X10*3/uL MPV (9.4-12.3) fL Immature Gran % (Auto) (0.0-0.4) % Neut % (Auto) (45-73) % Lymph % (Auto) (20-40) % [place] % (Auto) (2-11) % Eos % (Auto) (0-4) % Baso % (Auto) (0-2) % Lymph # (Auto) (1.2-4.9) X10*3/uL [place] # (Auto) (0.1-1.2) X10*3/uL Eos # (Auto) (0.0-0.4) X10*3/uL Baso # (Auto) (0.0-0.2) X10*3/uL Abs Immat Gran (auto) (0.00-0.03) X10*3/uL Absolute Neuts (auto) (2.0-8.3) X10*3/uL Absolute Nucleated RBC (0.0-0.012) X10*3/uL Nucleated RBC % (auto) (0.0-0.2) /100WBC PT (10.8-13.0) SEC INR (0.9-1.1) Sodium (135-145) mmol/L Potassium (3.3-5.1) mmol/l Chloride (96-108) mmol/L Carbon Dioxide (22-29) mmol/L Anion Gap (12-20) BUN (9-16) mg/dL Creatinine (0.5-1.4) mg/dL Estim Creat Clear Calc Estimated GFR Random Glucose (60-115) mg/dL Calcium (8.4-10.2) mg/dL Troponin I High Sens 6.9 D (<3.5-17.0) ng/L B-Natriuretic Peptide 379 H (<100) pg/mL Imaging Data Chest x-ray: Radiologist's impression: vascular congestion, airspace consolidation, groundglass opacity, or effusion. There is large hiatal hernia again seen retrocardiac region. The cardiac and hilar and mediastinal contours and visualized bony structures are similar to prior exam. ECG Data Attestation: I personally reviewed and interpreted this ECG as follows: ( atrial fibrillation, heart rate 130, [address] segment depression in V4. EKG 2.: Atrial fibrillation, heart rate 91, no ST segment depressions or elevations, no T-wave inversions) Critical Care Time Critical Care Time Total Critical Care Time: 60 Discharge Plan Discharge Clinical Impression: Atrial fibrillation with RVR, Acute kidney injury Patient Disposition: Admitted As Inpatient Prescriptions: No Action atorvastatin 20 mg tablet 1 tab PO DAILY RF: 0 warfarin 2 mg tablet 4 mg PO DAILY RF: 0 Hold Instructions: Resume on 01/20/20. monitor inr closely omeprazole 20 mg capsule,delayed release(DR/EC) 1 cap PO DAILY RF: 0 raloxifene 60 mg tablet 60 mg PO DAILY RF: 0 metoprolol succinate 50 mg tablet extended release 24 hr 2 tab PO DAILY Qty: 0 RF: 0 warfarin 2 mg tablet 2 mg PO DAILY Qty: 90 RF: 0 amlodipine 10 mg tablet 10 mg PO DAILY RF: 0
[2020-02-12] MEDS: Metoprolol Tartrate 5 MG/5 ML VIAL IVPUSH (11:19)
[2020-02-12 11:22] LABS: MANUAL DIFF FLAG NO
[2020-02-12 11:30] LABS: Basophils Absolute Auto 0.1 X10*3/uL (0.0-0.2); Basophils Percent Auto 0.9 % (0-2); Eosinophils Absolute Auto 0.1 X10*3/uL (0.0-0.4); Eosinophils Percent Auto 1.6 % (0-4); Hematocrit 44.9 % (37-47); Hemoglobin 14.4 g/dl (12.0-16.0); Imm Gran Abs Auto 0.21 X10*3/uL (0.00-0.03); Imm Gran Pct Auto 2.4 % (0.0-0.4); Lymphocytes Absolute Auto 1.7 X10*3/uL (1.2-4.9); Lymphocytes Percent Auto 18.5 % (20-40); Mean Corpuscular HGB Conc 32.1 g/dl (31.0-35.0); Mean Corpuscular Hemoglobin 29.5 pg (27.0-33.0); Mean Platelet Volume 10.1 fL (9.4-12.3); Monocytes Absolute Auto 1.1 X10*3/uL (0.1-1.2); Monocytes Percent Auto 11.8 % (2-11); Neutrophils Absolute Auto 5.8 X10*3/uL (2.0-8.3); Neutrophils Percent Auto 64.8 % (45-73); Platelet Count 310 X10*3/uL (160-400); Red Blood Count 4.88 X10*6/uL (4.20-5.50); Red Cell Distribution Width 14.2 % (11.0-16.0); White Blood Count 8.9 X10*3/uL (4.8-10.8)
[2020-02-12 11:45] LABS: Prothrombin Time 36.5 SEC (10.8-13.0)
[2020-02-12 11:54] LABS: Anion Gap 18 (12-20); Blood Urea Nitrogen 27 mg/dL (9-16); Calcium 10.3 mg/dL (8.4-10.2); Carbon Dioxide 19 mmol/L (22-29); Chloride 105 mmol/L (96-108); Creatinine Clr Calc Pharmacy 20.1; Estimated Glomerular Filt Rate 29; Glucose Random 138 mg/dL (60-115); Potassium 4.1 mmol/l (3.3-5.1); Sodium 138 mmol/L (135-145)
[2020-02-12] MEDS: dilTIAZem HCL 50 MG/10 ML VIAL 10 MG IVPUSH (11:57)
[2020-02-12 12:13] LABS: B Type Natriuretic Peptide 379 pg/mL (<100); Troponin-I High Sensitivity 6.9 ng/L (<3.5-17.0)
--- NOTE | 2020-02-12 13:02 | PC.NURSE ---
pt ambulated approx 15 steps to and from stretcher; became sob. spo2 decreased to 90$ on ra, heart rate increased to 139. assisted back to stretcher. plan for admission. brother and sister and law given update with pt's permission
[2020-02-12] MEDS: 0.9 % Sodium Chloride 1,000 ML 999 ML IVCONT (13:14)
[2020-02-12] MEDS: dilTIAZem HCL 125 MG in 0.9 % Sodium Chloride 100 ML 10 MG IVCONT (13:15)
--- NOTE | 2020-02-12 14:44 | PM.IMHP ---
History of Present Illness Date of Service: 02/12/20 <CRISTIAN Rodrigez - Last Filed: 02/12/20 16:35> Chief Complaint: shortness of breath <CRISTIAN Rodrigez - Last Filed: 02/12/20 16:35> this is an 85-year-old female with a history of atrial fibrillation on Coumadin who was sent from the general utility worker's office due to rapid atrial fibrillation. Patient was recently admitted due to colitis. At that time her beta-rachell dose was increased. She was discharged home with visiting nursing. Her visiting nurses have noticed that her heart rate has been elevated over the past few days. They encouraged her to schedule an appointment with the general utility worker. in the cardiology office she had complaints of shortness of breath with minimal exertion and her oxygen saturation was reportedly dropping to 88-90%. She was also noted to be in atrial fibrillation with rapid ventricular response. For this reason she was sent to the emergency department for evaluation. She received a dose of IV metoprolol, IV Cardizem bolus followed by Cardizem drip. Therefore the decision was made to admit her for further management. <CRISTIAN Rodrigez - Last Filed: 02/12/20 16:35> Review of Systems Review of Systems: Yes all other systems are reviewed and are negative <CRISTIAN Rodrigez - Last Filed: 02/12/20 16:35> Cardiovascular: Cardiovascular: Denies chest pain, Denies palpitations and Reports dyspnea on exertion <CRISTIAN Rodrigez - Last Filed: 02/12/20 16:35> Respiratory: Respiratory: Reports dyspnea on exertion <CRISTIAN Rodrigez Last Filed: 02/12/20 16:35> Gastrointestinal: Gastrointestinal: Denies diarrhea, Denies nausea and Denies vomiting <CRISTIAN Rodrigez Last Filed: 02/12/20 16:35> Endocrine: Endocrine: Denies palpitations <CRISTIAN Rodrigez Last Filed: 02/12/20 16:35> [facility] Medical History: Medical History Abnormal myocardial perfusion study Atrial fibrillation Chronic heart failure with preserved ejection fraction (HFpEF) Diverticulitis Essential hypertension Gastro-esophageal reflux disease without esophagitis Hiatal hernia High cholesterol History of cardioversion Hypertension Non-rheumatic tricuspid stenosis with insufficiency Persistent atrial fibrillation Pulmonary hypertension <CRISTIAN Rodrigez - Last Filed: 02/12/20 16:35> Functional capacity: uses cane/walker <CRISTIAN Rodrigez - Last Filed: 02/12/20 16:35> Family History: Family History Father Heart disease Mother Colon cancer <CRISTIAN Rodrigez - Last Filed: 02/12/20 16:35> Surgical History: Surgical History H/O mastectomy S/P total abdominal hysterectomy <CRISTIAN Rodrigez - Last Filed: 02/12/20 16:35> Social History: Social History Household Members: None Housing: Apartment Alcohol intake: never Smoking Status: Never smoker Advance Directives Date on File: 01/16/20 service: No Current occupational status: retired <CRISTIAN Rodrigez - Last Filed: 02/12/20 16:35> Meds Allergies/Adverse reactions: Allergies Allergy/AdvReac Type Severity Reaction Status Date / Time No Known Allergies Allergy Verified 02/12/20 10:00 [No Known Allergies*] <CRISTIAN Rodrigez - Last Filed: 02/12/20 16:35> Home medications: Home Medications Medication Instructions Recorded Confirmed Type warfarin 4 mg PO DAILY 01/15/20 02/12/20 History amlodipine 1 tab PO DAILY 02/12/20 02/12/20 History atorvastatin 1 tab PO DAILY 02/12/20 02/12/20 History calcium carbonate [Calcium 600] 1,200 mg PO DAILY 02/12/20 02/12/20 History metoprolol succinate 2 tab PO DAILY 02/12/20 02/12/20 History omeprazole 1 cap PO DAILY 02/12/20 02/12/20 History raloxifene 60 mg PO DAILY 02/12/20 02/12/20 History warfarin 2 mg PO MO@1600 02/12/20 02/12/20 History warfarin 4 mg PO SUTUWETHFRSA@1600 02/12/20 02/12/20 History <CRISTIAN Rodrigez - Last Filed: 02/12/20 16:35> Physical Exam Vital Signs and Narrative: Vital Signs: Last Vital Signs Temp 98.1 F 02/12/20 11:05 Pulse 103 H 02/12/20 14:14 Resp 16 02/12/20 14:14 BP 122/78 02/12/20 14:14 Pulse Ox 96 02/12/20 14:14 Body Mass Index 25.0 <CRISTIAN Rodrigez - Last Filed: 02/12/20 16:35> Const: Nutritional Appearance: well nourished <CRISTIAN Rodrigez - Last Filed: 02/12/20 16:35> Orientation/consciousness: patient oriented x3 <CRISTIAN Rodrigez - Last Filed: 02/12/20 16:35> HENMT: Head: Yes normocephalic and Yes atraumatic <CRISTIAN Rodrigez - Last Filed: 02/12/20 16:35> Eyes: Sclerae: sclerae normal <CRISTIAN Rodrigez - Last Filed: 02/12/20 16:35> Chest: Chest palpation & inspection: normal inspection of the chest <CRISTIAN Rodrigez - Last Filed: 02/12/20 16:35> Resp: Effort & Inspection: normal respiratory effort and no respiratory distress <CRISTIAN Rodrigez - Last Filed: 02/12/20 16:35> Auscultation: clear to auscultation bilaterally <CRISTIAN Rodrigez - Last Filed: 02/12/20 16:35> Cardio: Rate: tachycardic <CRISTIAN Rodrigez - Last Filed: 02/12/20 16:35> Rhythm: abnormal rhythm irregularly irregular <CRISTIAN Rodrigez - Last Filed: 02/12/20 16:35> GI: Palpation (GI): Soft to palpation and nontender <CRISTIAN Rodrigez - Last Filed: 02/12/20 16:35> Skin: General skin exam: no rashes or lesions noted <CRISTIAN Rodrigez - Last Filed: 02/12/20 16:35> Neuro: General: patient oriented x3 <CRISTIAN Rodrigez - Last Filed: 02/12/20 16:35> Cranial nerves: Yes CN's II-XII intact bilaterally and Yes Bilaterally intact EOM present <CRISTIAN Rodrigez - Last Filed: 02/12/20 16:35> Extrem: General: Yes normal to inspection <CRISTIAN Rodrigez - Last Filed: 02/12/20 16:35> Results Labs Labs: Laboratory Tests 02/12/20 02/12/20 02/12/20 11:16 11:16 11:16 WBC 8.9 RBC 4.88 D Hgb 14.4 D Hct 44.9 D MCV 92.0 MCH 29.5 MCHC 32.1 RDW 14.2 Plt Count 310 D MPV 10.1 Immature Gran % (Auto) 2.4 H Neut % (Auto) 64.8 Lymph % (Auto) 18.5 L [place] % (Auto) 11.8 H Eos % (Auto) 1.6 Baso % (Auto) 0.9 Lymph # (Auto) 1.7 [place] # (Auto) 1.1 Eos # (Auto) 0.1 Baso # (Auto) 0.1 Abs Immat Gran (auto) 0.21 H Absolute Neuts (auto) 5.8 Absolute Nucleated RBC 0.000 Nucleated RBC % (auto) 0.0 PT 36.5 H INR 3.0 H Sodium 138 Potassium 4.1 Chloride 105 Carbon Dioxide 19 L Anion Gap 18 BUN 27 H Creatinine 1.66 H Estim Creat Clear Calc 20.1 Estimated GFR 29 Random Glucose 138 H D Calcium 10.3 H Troponin I High Sens B-Natriuretic Peptide 02/12/20 11:16 WBC RBC Hgb Hct MCV MCH MCHC RDW Plt Count MPV Immature Gran % (Auto) Neut % (Auto) Lymph % (Auto) [place] % (Auto) Eos % (Auto) Baso % (Auto) Lymph # (Auto) [place] # (Auto) Eos # (Auto) Baso # (Auto) Abs Immat Gran (auto) Absolute Neuts (auto) Absolute Nucleated RBC Nucleated RBC % (auto) PT INR Sodium Potassium Chloride Carbon Dioxide Anion Gap BUN Creatinine Estim Creat Clear Calc Estimated GFR Random Glucose Calcium Troponin I High Sens 6.9 D B-Natriuretic Peptide 379 H <CRISTIAN Rodrigez - Last Filed: 02/12/20 16:35> Assessment and Plan (1) Atrial fibrillation with RVR: Status: Acute <CRISTIAN Rodrigez - Last Filed: 02/12/20 16:35> this is an 85-year-old female with a history of atrial fibrillation on Coumadin who was sent from Cardiology office with rapid atrial fibrillation atrial fibrillation with rapid ventricular response - improving on Cardizem drip - INR 3.0, follow daily INR, resume coumadin tomorrow - hold Norvasc, metoprolol. borderline bp - cardiology consult HFpEF no acute exacerbation not on diuretics at home HLD continue statin Gerd continue omeprazole HTN. norvasc on hold due to cardizem drip, soft bp DVT prophylaxis- coumadin code status- full code this case with Dr. Burkett <CRISTIAN Rodrigez - Last Filed: 02/12/20 16:35>
--- NOTE | 2020-02-12 15:37 | PC.NURSE ---
patient a&ox3, denies pain, vitals obtained, pt desat to 89 on room air, 1L O2 NC placed back onto patient, cardizem drip @ 10, patient afib on monitor 80s-90s, will continue to monitor.
--- NOTE | 2020-02-12 15:55 | PC.NURSE ---
covid swab pending, report given to marquise.
[2020-02-12 15:59] LABS: SARS COV2 PCR INHOUSE NEGATIVE (Negative)
--- NOTE | 2020-02-12 18:04 | PM.EVENT ---
Event Note Event Note: Patient seen and examined Patient came to the hospital because of tachycardia and found to have AFib with RVR Probably also has CKD This patient is seen and examined with APC. Lab imaging, EKG reviewed. Lab mc creatinine 1.6 Troponin within range EKG shows AFib Physical exam: Cvs: irregular rythem, [id number] , no murmur res: clear to auscultation ,no rhonchii or wheezing abd: no rebound or guarding ,nt, bs present. ext pulses present , no cyanosis neuro: axo3 , nonfocal. assessment and plan coordinated in APCs note, Agree with the plan in addition: Continue diltiazem drip, hold home blood pressure medications since borderline blood pressure. Cardio evaluation
[2020-02-12] MEDS: 0.9 % Sodium Chloride Flush 3 ML SYRINGE IVFLUSH (21:06)
[2020-02-13] VITALS (16 sets, daily range): BP systolic 100–147; BP diastolic 44–82; PULSE 64–104; RESP 16–20; TEMP 36.2–37; O2SAT 91–99
--- NOTE | 2020-02-13 | ECG_ITS ---
Test Reason : SP CARDIOVERSION Blood Pressure : / mmHG Vent. Rate : 070 BPM Atrial Rate : 070 BPM P-R Int : 162 ms QRS Dur : 080 ms QT Int : 414 ms P-R-T Axes : 060 025 058 degrees QTc Int : 447 ms Sinus rhythm with Premature supraventricular complexes with Sinus Arrhythmia Abnormal ECG When compared with ECG of 12-FEB-2020 12:04, Sinus rhythm has replaced Atrial fibrillation Referred By: Liborio Londono Electronically Signed By:CAREY ABAD MD
[2020-02-13] MEDS: dilTIAZem HCL 125 MG in 0.9 % Sodium Chloride 100 ML IVCONT (06:21)
[2020-02-13 06:39] LABS: Hemoglobin 11.8 g/dl (12.0-16.0); Mean Corpuscular HGB Conc 31.9 g/dl (31.0-35.0); Mean Corpuscular Hemoglobin 29.7 pg (27.0-33.0); Mean Corpuscular Volume 93.2 fL (80-98); Mean Platelet Volume 10.2 fL (9.4-12.3); Platelet Count 205 X10*3/uL (160-400); Red Blood Count 3.97 X10*6/uL (4.20-5.50); White Blood Count 6.2 X10*3/uL (4.8-10.8)
[2020-02-13 07:05] LABS: Anion Gap 13 (12-20); Blood Urea Nitrogen 23 mg/dL (9-16); Calcium 8.3 mg/dL (8.4-10.2); Carbon Dioxide 19 mmol/L (22-29); Chloride 112 mmol/L (96-108); Creatinine Clr Calc Pharmacy 25.9; Estimated Glomerular Filt Rate 38; Glucose Random 95 mg/dL (60-115); Potassium 4.1 mmol/l (3.3-5.1); Sodium 140 mmol/L (135-145)
--- NOTE | 2020-02-13 08:26 | P.CDIC_ITS ---
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 Please clarify the information noted below in your progress notes and discharge summary. Risk Factors/Clinical Indicators/Treatments Ed: Acute kidney disease Event note: 02/11 - probably has CKD Cr. 1.66 H Bun 27 H Gfr 29 CDS: Maryjane Yoo CCS, CDIS Contact Number: [phone]. [phone] Please Review the information above and exercise your independent professional judgment in responding to the query. If you concur, pleas document in the PROGRESS NOTES and DISCHARGE SUMMARY. If you do not agree with the query, please document in the query above. THIS QUERY IS PART OF THE PERMANENT MEDICAL RECORD
[2020-02-13] MEDS: Atorvastatin Calcium 20 MG TABLET PO (08:27)
[2020-02-13] MEDS: Omeprazole 20 MG CAPSULE.DR PO (08:31)
--- NOTE | 2020-02-13 09:52 | MHC.CM.PN ---
Addendum entered by Essie Capps 02/13/20 11:15: Patient is not active with [facility]. Referral sent to [facility] in [place]. Original Note: CM met with patient at the bedside who reports she is independent, amb with a cane occasionally, and lives alone. Patient does have a HCP brother Blaine [phone] and a copy is on file. Patient reports she is active with [facility]. Discussed discharge plan, patient wants to go home with resumption of services from [facility]. Referral made via [facility] [employer]. [facility] one of her brothers will provide transport. CM will continue to follow patient for discharge needs.
--- NOTE | 2020-02-13 11:53 | P.CONCA_ITS ---
History of Present Illness History of Present Illness Date of Consult: February 13, 2020 Requesting physician: Karina Burkett Consult reason: atrial fibrillation and shortness of breath Chief complaint: AFIB with RVR Narrative: Thank you for inviting us in consult on Rosy for management of her atrial fibrillation. She is a pleasant 85-year-old woman with prior history of hypertension, heart failure with preserved ejection fraction, paroxysmal atrial fibrillation, more recently has been persistent since her last admission in early January for colitis. She is also on warfarin for anticoagulation and since early January her INRs have been in therapeutic range for the last 3 weeks at least. She came to the hospital yesterday, referred by Dr. Child when she presented to the office urgently, visiting nurses had noted elevated heart rate over the last few days. With the last few weeks she has significant symptoms related to atrial fibrillation with symptoms of fatigue and shortness of breath with exertion. She was noted to be in atrial fibrillation rapid ventricular response and was referred to the emergency room and hospitalization for further management. She has remained in atrial fibrillation with borderline rate control despite being on IV Cardizem. Prior to last admission in early January she was in normal sinus rhythm and was doing well with maintenance of AV synchrony. Last admission decision was made to control rate with increase metoprolol and was discharged home with adequate rate control. Patient denies any orthopnea, PND, leg edema. Denies lightheadedness, syncope. No bleeding issues or neurologic events. Denies any chest discomfort. Cardiology consult was called because she remains in atrial fibrillation with intermittent rapid ventricular response to assess for rhythm control versus rate control approach. The history was obtained with brother present during the entire visit. Review of Systems Constitutional: Constitutional: Reports lethargy Comments: No recent change in weight, fever, chills, body aches. Does complain of fatigue overall. Eyes: Eyes: Reports no additional eye complaints ENT: Reports system reviewed and no additional complaints, except as documented Cardiovascular: Cardiovascular: Reports irregular heart rhythm and Reports dyspnea on exertion Respiratory: Respiratory: Reports no additional respiratory complaints and Reports dyspnea on exertion Gastrointestinal: Gastrointestinal: Reports no additional gastrointestinal complaints Neurologic: Reports system reviewed and no additional complaints, except as documented Psychiatric: Psychiatric: Reports no additional psychiatric complaints Hematologic/Lymphatic: Hematologic/Lymphatic: Reports no additional hematologic/lymphatic complaints Allergic/Immunologic: Allergic/Immunologic: Reports no additional allergic/immunologic complaints PMFSH Past Medical History Medical History Abnormal myocardial perfusion study Atrial fibrillation Chronic heart failure with preserved ejection fraction (HFpEF) Diverticulitis Essential hypertension Gastro-esophageal reflux disease without esophagitis Hiatal hernia High cholesterol History of cardioversion Hypertension Non-rheumatic tricuspid stenosis with insufficiency Persistent atrial fibrillation Pulmonary hypertension Functional capacity: uses cane/walker Family History Family History Father Heart disease Mother Colon cancer Surgical History Surgical History H/O mastectomy S/P total abdominal hysterectomy Social History Social History Household Members: None Housing: Apartment Alcohol intake: never Smoking Status: Never smoker Advance Directives Date on File: 01/16/20 service: No Current occupational status: retired [employer] Allergies Allergy/AdvReac Type Severity Reaction Status Date / Time No Known Allergies Allergy Verified 02/12/20 10:00 [No Known Allergies*] Home Medications Medication Instructions Recorded Confirmed Type warfarin 4 mg PO DAILY 01/15/20 02/12/20 History amlodipine 1 tab PO DAILY 02/12/20 02/12/20 History atorvastatin 1 tab PO DAILY 02/12/20 02/12/20 History calcium carbonate [Calcium 600] 1,200 mg PO DAILY 02/12/20 02/12/20 History metoprolol succinate 2 tab PO DAILY 02/12/20 02/12/20 History omeprazole 1 cap PO DAILY 02/12/20 02/12/20 History raloxifene 60 mg PO DAILY 02/12/20 02/12/20 History warfarin 2 mg PO MO@1600 02/12/20 02/12/20 History warfarin 4 mg PO SUTUWETHFRSA@1600 02/12/20 02/12/20 History Physical Exam Vital Signs: Vital Signs: Vital Signs Temp Pulse Resp BP Pulse Ox 02/13/20 07:48 98.3 F 93 18 121/82 92 02/13/20 04:38 98.6 F 90 16 104/65 91 L 02/13/20 00:00 98 F 92 18 115/56 L 93 02/12/20 19:14 97.8 F 77 18 112/68 94 02/12/20 17:37 97.8 F 86 18 103/63 95 02/12/20 15:32 98.0 F 96 18 102/61 94 02/12/20 14:14 103 H 16 122/78 96 02/12/20 12:59 123 H 105/81 95 02/12/20 12:58 139 H 24 H 90 L 02/12/20 12:02 91 101/59 L 95 02/12/20 11:57 123 H 119/80 Body Mass Index 26.4 Const: General: cooperative, comfortable, no acute distress, alert and awake Nutritional Appearance: underweight Orientation/consciousness: patient oriented x3 HENMT: Head: Yes normal to inspection, Yes normocephalic and Yes atraumatic Eyes: General: appearance normal, both eyes and all related structures Neck: Neck: Yes trachea midline, Yes supple and Yes no JVD Chest: Chest palpation & inspection: normal inspection of the chest Resp: Effort & Inspection: normal respiratory effort Auscultation: crackles (Coarse, cleared with coughing suggestive atelectasis) on the right Cardio: Jugular venous distension: no JVD Palpation: normal PMI Rhythm: abnormal rhythm irregularly irregular Heart sounds: S1 normal heart sound present, S2 normal heart sound present and Murmur heart sound present systolic early and at the apex Neuro: General: patient oriented x3 Results Labs and Meds Result diagrams: 02/13/20 05:27 02/13/20 05:27 Lab results: Laboratory Results - last 24 hr 02/12/20 02/12/20 02/12/20 11:16 11:16 14:50 WBC RBC Hgb Hct MCV MCH MCHC RDW Plt Count MPV Absolute Nucleated RBC Nucleated RBC % (auto) Sodium 138 Potassium 4.1 Chloride 105 Carbon Dioxide 19 L Anion Gap 18 BUN 27 H Creatinine 1.66 H Estim Creat Clear Calc 20.1 Estimated GFR 29 Random Glucose 138 H D Calcium 10.3 H Troponin I High Sens 6.9 D B-Natriuretic Peptide 379 H Coronavirus (PCR) NEGATIVE 02/13/20 02/13/20 05:27 05:27 WBC 6.2 RBC 3.97 L Hgb 11.8 L Hct 37.0 MCV 93.2 MCH 29.7 MCHC 31.9 RDW 14.0 Plt Count 205 D MPV 10.2 Absolute Nucleated RBC 0.000 Nucleated RBC % (auto) 0.0 Sodium 140 Potassium 4.1 Chloride 112 H Carbon Dioxide 19 L Anion Gap 13 BUN 23 H Creatinine 1.32 Estim Creat Clear Calc 25.9 Estimated GFR 38 Random Glucose 95 Calcium 8.3 L Troponin I High Sens B-Natriuretic Peptide Coronavirus (PCR) Assessment and Plan (1) Persistent atrial fibrillation: Status: Acute Persistent atrial fibrillation elderly woman with difficult to control rate. She is highly symptomatic with persistent atrial fibrillation with symptoms mostly due to loss of AV synchrony in patient with prior diastolic dysfunction. This is not unusual. We discussed about management plan in details with her as well as a brother present. We discussed about rhythm control approach. Given that she has maintain rhythm on her own without any antiarrhythmic is in the past, will perform synchronized cardioversion later today. Risks and benefits were discussed in details. She is agreeable. She has had therapeutic INR last 3 weeks, and DIANA preprocedure is not required at this point in time. Once she is cardioverted back to normal rhythm, will pursue therapy with metoprolol. If she has recurrent atrial fibrillation the future may require antiarrhythmic drug therapy, options including Multaq or amiodarone. This was discussed with her as well. She understands agrees. Blood pressure is well optimized. Continue warfarin therapy. Plan for cardioversion later today if low-level timing as per Anesthesia. Keep her NPO from now. (2) Hypertension: Status: Acute Blood pressure is well optimized at current time. Will follow with the patient, continue current therapy.
--- NOTE | 2020-02-13 13:01 | PC.NURSE ---
Call to floor to confirm what patient had consumed at breakfast. per nurse Demetra, pt had yogurt, almost a whole bowl of oatmeal and 2 coffees around 0900. Per anesthesia pt would need to wait 8hrs before planned procedure can occur.
--- NOTE | 2020-02-13 15:13 | P.PNIM_ITS ---
Subjective Subjective Date of Service: 02/13/20 Interval History: fabio , afib Review of Systems Patient says the shortness of breath and palpitations are improving heart rate is improving also. Physical Exam Vital Signs: Vital Signs: Vital Signs Temp Pulse Resp BP Pulse Ox 02/13/20 12:00 98.2 F 104 H 18 127/44 L 93 02/13/20 07:48 98.3 F 93 18 121/82 92 02/13/20 04:38 98.6 F 90 16 104/65 91 L 02/13/20 00:00 98 F 92 18 115/56 L 93 02/12/20 19:14 97.8 F 77 18 112/68 94 02/12/20 17:37 97.8 F 86 18 103/63 95 02/12/20 15:32 98.0 F 96 18 102/61 94 Body Mass Index 26.4 Physical exam: Cvs: irregular rythem, [id number] , no murmur res: clear to auscultation ,no rhonchii or wheezing abd: no rebound or guarding ,nt, bs present. ext pulses present , no cyanosis neuro: axo3 , nonfocal. Objective Data Current Medications Generic Name Dose Route Start Last Admin Trade Name Freq PRN Reason Stop Dose Admin Acetaminophen 650 mg 02/12/20 17:36 Acetaminophen 325 Mg Tablet PO Q6H PRN Pain, Mild (Pain Scale 1-3) Atorvastatin Calcium 20 mg 02/13/20 09:00 02/13/20 08:27 Atorvastatin Calcium 20 Mg Tablet PO 20 mg DAILY TRAV Administration Docusate Sodium 100 mg 02/12/20 17:36 Docusate Sodium 100 Mg Capsule PO DAILY PRN Constipation Diltiazem HCl 125 mg/ Sodium 125 mls @ 0 mls/hr 02/12/20 13:00 02/13/20 14:22 Chloride IVCONT 5 mg/hr .Q0M TRAV 5 mls/hr Titration Protocol Per Protocol Omeprazole 20 mg 02/13/20 09:00 02/13/20 08:31 Omeprazole 20 Mg Capsule.Dr PO 20 mg DAILY TRAV Administration Ondansetron HCl 4 mg 02/12/20 17:36 Ondansetron Hcl 4 Mg/2 Ml Vial IVPUSH Q8H PRN Nausea and Vomiting Pharmacy Consult 1 each 02/12/20 13:30 Consult Rx Perform Med Rec MISCELLANE ONCE PRN Consult order Sodium Chloride 3 ml 02/12/20 17:36 02/13/20 08:28 0.9 % Sodium Chloride Flush 3 Ml Syringe IVFLUSH Not Given QSHIFT [facility] Labs CBC & Chem 7: 02/13/20 05:27 02/13/20 05:27 Assessment and Plan (1) Persistent atrial fibrillation: Status: Acute (2) Acute kidney injury: Status: Acute Assessment and Plan: 85-year-old female with a history of atrial fibrillation on Coumadin who was sent from Cardiology office with rapid atrial fibrillation 1.atrial fibrillation with rapid ventricular response improving on Cardizem drip - INR 3.0 yesterday , follow daily INR, resume coumadin if inr between 2-3. - hold Norvasc, metoprolol. borderline bp, continue cardizem drip. Cardio evaluation noted-patient will need probable cardioversion in am. HFpEF no acute exacerbation not on diuretics at home HLD continue statin Gerd continue omeprazole HTN. norvasc on hold due to cardizem drip, soft bp
--- NOTE | 2020-02-13 15:39 | P.CONAN_ITS ---
[facility] Past Medical History Medical History Abnormal myocardial perfusion study Atrial fibrillation Chronic heart failure with preserved ejection fraction (HFpEF) Diverticulitis Essential hypertension Gastro-esophageal reflux disease without esophagitis Hiatal hernia High cholesterol History of cardioversion Hypertension Non-rheumatic tricuspid stenosis with insufficiency Persistent atrial fibrillation Pulmonary hypertension Functional capacity: uses cane/walker Family History Family History Father Heart disease Mother Colon cancer Surgical History Surgical History H/O mastectomy S/P total abdominal hysterectomy Social History Social History Household Members: None Housing: Apartment Alcohol intake: never Smoking Status: Never smoker Advance Directives Date on File: 01/16/20 service: No Current occupational status: retired [employer] Allergies Allergy/AdvReac Type Severity Reaction Status Date / Time No Known Allergies Allergy Verified 02/12/20 10:00 [No Known Allergies*] Home Medications Medication Instructions Recorded Confirmed Type warfarin 4 mg PO DAILY 01/15/20 02/12/20 History amlodipine 1 tab PO DAILY 02/12/20 02/12/20 History atorvastatin 1 tab PO DAILY 02/12/20 02/12/20 History calcium carbonate [Calcium 600] 1,200 mg PO DAILY 02/12/20 02/12/20 History metoprolol succinate 2 tab PO DAILY 02/12/20 02/12/20 History omeprazole 1 cap PO DAILY 02/12/20 02/12/20 History raloxifene 60 mg PO DAILY 02/12/20 02/12/20 History warfarin 2 mg PO MO@1600 02/12/20 02/12/20 History warfarin 4 mg PO SUTUWETHFRSA@1600 02/12/20 02/12/20 History Exam Exam Date and Time: February 13, 2020 1539 Height,Weight and Vital Signs: Height 5 ft Weight 61.3 kg Last Vital Signs Temp 98.2 F 02/13/20 12:00 Pulse 104 H 02/13/20 12:00 Resp 18 02/13/20 12:00 BP 127/44 L 02/13/20 12:00 Pulse Ox 93 02/13/20 12:00 Pertinent Lab Results Pertinent Lab Results: Laboratory Tests 02/12/20 02/12/20 02/12/20 11:16 11:16 11:16 WBC 8.9 RBC 4.88 D Hgb 14.4 D Hct 44.9 D MCV 92.0 MCH 29.5 MCHC 32.1 RDW 14.2 Plt Count 310 D MPV 10.1 Immature Gran % (Auto) 2.4 H Neut % (Auto) 64.8 Lymph % (Auto) 18.5 L [place] % (Auto) 11.8 H Eos % (Auto) 1.6 Baso % (Auto) 0.9 Lymph # (Auto) 1.7 [place] # (Auto) 1.1 Eos # (Auto) 0.1 Baso # (Auto) 0.1 Abs Immat Gran (auto) 0.21 H Absolute Neuts (auto) 5.8 Absolute Nucleated RBC 0.000 Nucleated RBC % (auto) 0.0 PT 36.5 H INR 3.0 H Sodium 138 Potassium 4.1 Chloride 105 Carbon Dioxide 19 L Anion Gap 18 BUN 27 H Creatinine 1.66 H Estim Creat Clear Calc 20.1 Estimated GFR 29 Random Glucose 138 H D Calcium 10.3 H Troponin I High Sens B-Natriuretic Peptide Coronavirus (PCR) 02/12/20 02/12/20 02/13/20 11:16 14:50 05:27 WBC 6.2 RBC 3.97 L Hgb 11.8 L Hct 37.0 MCV 93.2 MCH 29.7 MCHC 31.9 RDW 14.0 Plt Count 205 D MPV 10.2 Immature Gran % (Auto) Neut % (Auto) Lymph % (Auto) [place] % (Auto) Eos % (Auto) Baso % (Auto) Lymph # (Auto) [place] # (Auto) Eos # (Auto) Baso # (Auto) Abs Immat Gran (auto) Absolute Neuts (auto) Absolute Nucleated RBC 0.000 Nucleated RBC % (auto) 0.0 PT INR Sodium Potassium Chloride Carbon Dioxide Anion Gap BUN Creatinine Estim Creat Clear Calc Estimated GFR Random Glucose Calcium Troponin I High Sens 6.9 D B-Natriuretic Peptide 379 H Coronavirus (PCR) NEGATIVE 02/13/20 05:27 WBC RBC Hgb Hct MCV MCH MCHC RDW Plt Count MPV Immature Gran % (Auto) Neut % (Auto) Lymph % (Auto) [place] % (Auto) Eos % (Auto) Baso % (Auto) Lymph # (Auto) [place] # (Auto) Eos # (Auto) Baso # (Auto) Abs Immat Gran (auto) Absolute Neuts (auto) Absolute Nucleated RBC Nucleated RBC % (auto) PT INR Sodium 140 Potassium 4.1 Chloride 112 H Carbon Dioxide 19 L Anion Gap 13 BUN 23 H Creatinine 1.32 Estim Creat Clear Calc 25.9 Estimated GFR 38 Random Glucose 95 Calcium 8.3 L Troponin I High Sens B-Natriuretic Peptide Coronavirus (PCR)
--- NOTE | 2020-02-13 15:41 | PC.NURSE ---
Addendum entered by Fior Ellington RN 02/13/20 17:25: PT BACK FROM SUCCESSFUL CARDIOVERSION. SR ON TELE. CARDIZEM GTT TURNED OFF IN OR. VSS. DENIES PAIN. SKIN REDNESS TO CHEST NOTED. WILL CONTINUE TO MONITOR. BROTHER UPDATED BY THIS RN AT PATIENTS REQUEST. Original Note: OFF UNIT FOR CARDIOVERSION.
--- NOTE | 2020-02-13 15:48 | HO.ANESPROP2 ---
[facility], [facility] Past Medical History Medical History Abnormal myocardial perfusion study Atrial fibrillation Chronic heart failure with preserved ejection fraction (HFpEF) Diverticulitis Essential hypertension Gastro-esophageal reflux disease without esophagitis Hiatal hernia High cholesterol History of cardioversion Hypertension Non-rheumatic tricuspid stenosis with insufficiency Persistent atrial fibrillation Pulmonary hypertension Functional capacity: uses cane/walker Family History Family History Father Heart disease Mother Colon cancer Surgical History Surgical History H/O mastectomy S/P total abdominal hysterectomy Social History Social History Household Members: None Housing: Apartment Alcohol intake: never Smoking Status: Never smoker Advance Directives Date on File: 01/16/20 service: No Current occupational status: retired [employer] Allergies Allergy/AdvReac Type Severity Reaction Status Date / Time No Known Allergies Allergy Verified 02/12/20 10:00 [No Known Allergies*] Home Medications Medication Instructions Recorded Confirmed Type warfarin 4 mg PO DAILY 01/15/20 02/12/20 History amlodipine 1 tab PO DAILY 02/12/20 02/12/20 History atorvastatin 1 tab PO DAILY 02/12/20 02/12/20 History calcium carbonate [Calcium 600] 1,200 mg PO DAILY 02/12/20 02/12/20 History metoprolol succinate 2 tab PO DAILY 02/12/20 02/12/20 History omeprazole 1 cap PO DAILY 02/12/20 02/12/20 History raloxifene 60 mg PO DAILY 02/12/20 02/12/20 History warfarin 2 mg PO MO@1600 02/12/20 02/12/20 History warfarin 4 mg PO SUTUWETHFRSA@1600 02/12/20 02/12/20 History Exam Exam Date and Time: February 13, 2020 1548 Height,Weight and Vital Signs: Height 5 ft Weight 61.3 kg Last Vital Signs Temp 98.2 F 02/13/20 12:00 Pulse 104 H 02/13/20 12:00 Resp 18 02/13/20 12:00 BP 127/44 L 02/13/20 12:00 Pulse Ox 93 02/13/20 12:00 Pertinent Lab Results Pertinent Lab Results: Laboratory Tests 02/12/20 02/12/20 02/12/20 11:16 11:16 11:16 WBC 8.9 RBC 4.88 D Hgb 14.4 D Hct 44.9 D MCV 92.0 MCH 29.5 MCHC 32.1 RDW 14.2 Plt Count 310 D MPV 10.1 Immature Gran % (Auto) 2.4 H Neut % (Auto) 64.8 Lymph % (Auto) 18.5 L [place] % (Auto) 11.8 H Eos % (Auto) 1.6 Baso % (Auto) 0.9 Lymph # (Auto) 1.7 [place] # (Auto) 1.1 Eos # (Auto) 0.1 Baso # (Auto) 0.1 Abs Immat Gran (auto) 0.21 H Absolute Neuts (auto) 5.8 Absolute Nucleated RBC 0.000 Nucleated RBC % (auto) 0.0 PT 36.5 H INR 3.0 H Sodium 138 Potassium 4.1 Chloride 105 Carbon Dioxide 19 L Anion Gap 18 BUN 27 H Creatinine 1.66 H Estim Creat Clear Calc 20.1 Estimated GFR 29 Random Glucose 138 H D Calcium 10.3 H Troponin I High Sens B-Natriuretic Peptide Coronavirus (PCR) 02/12/20 02/12/20 02/13/20 11:16 14:50 05:27 WBC 6.2 RBC 3.97 L Hgb 11.8 L Hct 37.0 MCV 93.2 MCH 29.7 MCHC 31.9 RDW 14.0 Plt Count 205 D MPV 10.2 Immature Gran % (Auto) Neut % (Auto) Lymph % (Auto) [place] % (Auto) Eos % (Auto) Baso % (Auto) Lymph # (Auto) [place] # (Auto) Eos # (Auto) Baso # (Auto) Abs Immat Gran (auto) Absolute Neuts (auto) Absolute Nucleated RBC 0.000 Nucleated RBC % (auto) 0.0 PT INR Sodium Potassium Chloride Carbon Dioxide Anion Gap BUN Creatinine Estim Creat Clear Calc Estimated GFR Random Glucose Calcium Troponin I High Sens 6.9 D B-Natriuretic Peptide 379 H Coronavirus (PCR) NEGATIVE 02/13/20 05:27 WBC RBC Hgb Hct MCV MCH MCHC RDW Plt Count MPV Immature Gran % (Auto) Neut % (Auto) Lymph % (Auto) [place] % (Auto) Eos % (Auto) Baso % (Auto) Lymph # (Auto) [place] # (Auto) Eos # (Auto) Baso # (Auto) Abs Immat Gran (auto) Absolute Neuts (auto) Absolute Nucleated RBC Nucleated RBC % (auto) PT INR Sodium 140 Potassium 4.1 Chloride 112 H Carbon Dioxide 19 L Anion Gap 13 BUN 23 H Creatinine 1.32 Estim Creat Clear Calc 25.9 Estimated GFR 38 Random Glucose 95 Calcium 8.3 L Troponin I High Sens B-Natriuretic Peptide Coronavirus (PCR) Airway Mallampati Class: II TM Dist: >3cm Neck ROM: Full Heart: irregular Lungs: CTA BL
--- NOTE | 2020-02-13 15:51 | P.CONAN_ITS ---
FORMERLY [facility] Past Medical History Medical History Abnormal myocardial perfusion study Atrial fibrillation Chronic heart failure with preserved ejection fraction (HFpEF) Diverticulitis Essential hypertension Gastro-esophageal reflux disease without esophagitis Hiatal hernia High cholesterol History of cardioversion Hypertension Non-rheumatic tricuspid stenosis with insufficiency Persistent atrial fibrillation Pulmonary hypertension Functional capacity: uses cane/walker Family History Family History Father Heart disease Mother Colon cancer Surgical History Surgical History H/O mastectomy S/P total abdominal hysterectomy Social History Social History Household Members: None Housing: Apartment Alcohol intake: never Smoking Status: Never smoker Advance Directives Date on File: 01/16/20 service: No Current occupational status: retired [employer] Allergies Allergy/AdvReac Type Severity Reaction Status Date / Time No Known Allergies Allergy Verified 02/12/20 10:00 [No Known Allergies*] Home Medications Medication Instructions Recorded Confirmed Type warfarin 4 mg PO DAILY 01/15/20 02/12/20 History amlodipine 1 tab PO DAILY 02/12/20 02/12/20 History atorvastatin 1 tab PO DAILY 02/12/20 02/12/20 History calcium carbonate [Calcium 600] 1,200 mg PO DAILY 02/12/20 02/12/20 History metoprolol succinate 2 tab PO DAILY 02/12/20 02/12/20 History omeprazole 1 cap PO DAILY 02/12/20 02/12/20 History raloxifene 60 mg PO DAILY 02/12/20 02/12/20 History warfarin 2 mg PO MO@1600 02/12/20 02/12/20 History warfarin 4 mg PO SUTUWETHFRSA@1600 02/12/20 02/12/20 History Exam Exam Date and Time: February 13, 2020 1551 Height,Weight and Vital Signs: Height 5 ft Weight 61.3 kg Last Vital Signs Temp 98.2 F 02/13/20 12:00 Pulse 104 H 02/13/20 12:00 Resp 18 02/13/20 12:00 BP 127/44 L 02/13/20 12:00 Pulse Ox 93 02/13/20 12:00 Pertinent Lab Results Pertinent Lab Results: Laboratory Tests 02/12/20 02/12/20 02/12/20 11:16 11:16 11:16 WBC 8.9 RBC 4.88 D Hgb 14.4 D Hct 44.9 D MCV 92.0 MCH 29.5 MCHC 32.1 RDW 14.2 Plt Count 310 D MPV 10.1 Immature Gran % (Auto) 2.4 H Neut % (Auto) 64.8 Lymph % (Auto) 18.5 L Andrews % (Auto) 11.8 H Eos % (Auto) 1.6 Baso % (Auto) 0.9 Lymph # (Auto) 1.7 Andrews # (Auto) 1.1 Eos # (Auto) 0.1 Baso # (Auto) 0.1 Abs Immat Gran (auto) 0.21 H Absolute Neuts (auto) 5.8 Absolute Nucleated RBC 0.000 Nucleated RBC % (auto) 0.0 PT 36.5 H INR 3.0 H Sodium 138 Potassium 4.1 Chloride 105 Carbon Dioxide 19 L Anion Gap 18 BUN 27 H Creatinine 1.66 H Estim Creat Clear Calc 20.1 Estimated GFR 29 Random Glucose 138 H D Calcium 10.3 H Troponin I High Sens B-Natriuretic Peptide Coronavirus (PCR) 02/12/20 02/12/20 02/13/20 11:16 14:50 05:27 WBC 6.2 RBC 3.97 L Hgb 11.8 L Hct 37.0 MCV 93.2 MCH 29.7 MCHC 31.9 RDW 14.0 Plt Count 205 D MPV 10.2 Immature Gran % (Auto) Neut % (Auto) Lymph % (Auto) Andrews % (Auto) Eos % (Auto) Baso % (Auto) Lymph # (Auto) Andrews # (Auto) Eos # (Auto) Baso # (Auto) Abs Immat Gran (auto) Absolute Neuts (auto) Absolute Nucleated RBC 0.000 Nucleated RBC % (auto) 0.0 PT INR Sodium Potassium Chloride Carbon Dioxide Anion Gap BUN Creatinine Estim Creat Clear Calc Estimated GFR Random Glucose Calcium Troponin I High Sens 6.9 D B-Natriuretic Peptide 379 H Coronavirus (PCR) NEGATIVE 02/13/20 05:27 WBC RBC Hgb Hct MCV MCH MCHC RDW Plt Count MPV Immature Gran % (Auto) Neut % (Auto) Lymph % (Auto) Andrews % (Auto) Eos % (Auto) Baso % (Auto) Lymph # (Auto) Andrews # (Auto) Eos # (Auto) Baso # (Auto) Abs Immat Gran (auto) Absolute Neuts (auto) Absolute Nucleated RBC Nucleated RBC % (auto) PT INR Sodium 140 Potassium 4.1 Chloride 112 H Carbon Dioxide 19 L Anion Gap 13 BUN 23 H Creatinine 1.32 Estim Creat Clear Calc 25.9 Estimated GFR 38 Random Glucose 95 Calcium 8.3 L Troponin I High Sens B-Natriuretic Peptide Coronavirus (PCR) Assessment and Plan Final Anesthetic Review NPO: Yes ASA Class: III and IV Final Preanesthetic Review: No Changes in Pt Med Stat, Meds/Allgs Chart Reviewed, Consent Obtained/Reviewed and Anes Risks/Benef Reviewed Patient Risk: Intermediate Procedure Risk: Intermediate Anesthetic Plan Anesthetic Plan: GA Disposition: Standard PACU
[2020-02-13 16:07] LABS: INTERNATIONAL NORM RATIO 3.7 (0.9-1.1); Prothrombin Time 44.8 SEC (10.8-13.0)
--- NOTE | 2020-02-13 16:11 | HO.CARDIVERS ---
Cardioversion Procedure Note Cardioversion Date of Procedure: 02/13/2020 Ordering Provider: Dr. Londono Performing Provider: Dr. Londono Indication for Procedure: symptomatic persistent atrial fibrillation Pre-Op Diagnosis: atrial fibrillation Post-Op Diagnosis: normal sinus rhythm Performed with Transesophageal Echo: No History: see consult note for details Consent: Verbal and Written consent was obtained from the patient before starting. The patient was made aware of the risk of of the procedure including postprocedure stroke and cardioversion Procedure: After consent obtained, Cardioversion pads were attached and the patient was sedated by the anesthesia team. Once adequate sedation achieved, patient was delivered 200 joules of biphasic synchronized energy in anteroposterior configuration. Complications: none Impression: successfully converted back to sinus rhythm Recommendations: 1. 12 lead EKG 2. Discontinue Cardizem drip 3. continue Toprol therapy. 4. continue Coumadin therapy, check INR tomorrow
[2020-02-13] MEDS: 0.9 % Sodium Chloride Flush 3 ML SYRINGE IVFLUSH ×2 (21:16)
[2020-02-14 03:56] VITALS: BP 127/66; PULSE 90; RESP 17; TEMP 36.8; O2SAT 94
[2020-02-14 04:00] VITALS: BP 127/66; PULSE 90; RESP 18; TEMP 36.8; O2SAT 94
[2020-02-14 07:12] LABS: INTERNATIONAL NORM RATIO 3.1 (0.9-1.1); Prothrombin Time 36.7 SEC (10.8-13.0)
[2020-02-14 08:00] VITALS: BP 126/68; PULSE 92; RESP 20; TEMP 36.3; O2SAT 95
[2020-02-14] MEDS: 0.9 % Sodium Chloride Flush 3 ML SYRINGE IVFLUSH (08:46)
[2020-02-14] MEDS: Omeprazole 20 MG CAPSULE.DR PO (08:46)
[2020-02-14] MEDS: Atorvastatin Calcium 20 MG TABLET PO (08:46)
[2020-02-14 10:20] VITALS: BP 118/70; PULSE 96
[2020-02-14] MEDS: Metoprolol Succinate ER 50 MG TAB.ER.24H 100 MG PO (10:20)
--- NOTE | 2020-02-14 11:20 | PM.PNCARD ---
Subjective Subjective Principal diagnosis: Symptomatic atrial fibrillation Interval history: Patient status post cardioversion yesterday. Maintaining sinus rhythm currently. Ambulate to the bathroom as well as in the hallways with improved symptoms of shortness of breath. No hemodynamic instability. Renal function yesterday of had improved. Review of Systems Constitutional: Reports no additional constitutional complaints Cardiovascular: Reports no additional cardiovascular complaints Respiratory: Reports no additional respiratory complaints Reports system reviewed and no additional complaints, except as documented Hematologic/Lymphatic: Reports no additional hematologic/lymphatic complaints Allergic/Immunologic: Reports no additional allergic/immunologic complaints Physical Exam Vital Signs: Vital Signs Temp Pulse Resp BP Pulse Ox 02/14/20 10:20 96 118/70 02/14/20 08:00 97.3 F 92 20 126/68 95 02/14/20 04:00 98.2 F 90 18 127/66 94 02/14/20 03:56 98.2 F 90 17 127/66 94 02/13/20 23:21 97.2 F 77 18 113/59 L 94 02/13/20 19:29 98.2 F 68 18 147/78 H 99 02/13/20 19:25 98.5 F 74 18 120/66 96 02/13/20 17:18 97.5 F 72 20 134/74 95 02/13/20 17:02 68 16 122/70 99 02/13/20 16:46 73 16 113/60 96 02/13/20 16:30 98.3 F 66 16 107/60 97 02/13/20 16:25 98 F 65 16 106/63 96 02/13/20 16:20 67 16 106/63 98 02/13/20 16:15 64 16 100/54 L 96 02/13/20 16:10 98.4 F 69 16 103/69 95 02/13/20 15:55 97.3 F 93 16 117/77 95 02/13/20 12:00 98.2 F 104 H 18 127/44 L 93 Body Mass Index 26.4 Const General: cooperative, no acute distress, alert and awake Nutritional Appearance: thin Orientation/consciousness: patient oriented x3 HENMT Head: Yes normal to inspection, Yes normocephalic and Yes atraumatic Eyes General: appearance normal, both eyes and all related structures Neck Neck: Yes trachea midline, Yes supple and Yes no JVD Chest Chest palpation & inspection: normal inspection of the chest Resp Effort & Inspection: normal respiratory effort Auscultation: clear to auscultation bilaterally Cardio Palpation: normal PMI Rate: regular rate Rhythm: regular rhythm Heart sounds: S1 normal heart sound present, S2 normal heart sound present and Other heart sounds present (S4 is present) GI Auscultation: normal bowel sounds Skin General skin exam: elasticity normal and turgor normal Neuro General: patient oriented x3 and no focal motor deficits Extrem General: Yes no clubbing, cyanosis or edema Psych Appearance: grossly normal Results Labs and Meds Result diagrams: 02/13/20 05:27 02/13/20 05:27 Lab results: Laboratory Results - last 24 hr 02/13/20 02/14/20 15:28 06:01 PT 44.8 H D 36.7 H INR 3.7 H 3.1 H Progress Note: A&P Assessment and plan (1) Persistent atrial fibrillation: Status: Acute Assessment and Plan: Persistent atrial fibrillation status post cardioversion. Maintaining sinus rhythm without additional antiarrhythmic drug. We had discussed in details about yesterday to follow her management plan without antiarrhythmic drug, given that this episode of atrial fibrillation was triggered by acute medical illness with colitis. Continue metoprolol therapy at 100 mg daily. Continue warfarin therapy with target INR between 2 and 3. Should have a follow-up INR check in a week's time. Will set up for outpatient Holter monitor in 1 weeks time and follow-up with Dr. Child or Essie Pyle in 2-3 weeks time. She is encouraged to continue to participate in physical activity as tolerated. Consider VNA intervention at home. Advised to report any new symptoms as soon as possible. (2) Essential hypertension: Status: Acute Fall Risk Details Current Medications: Current Medications Generic Name Dose Route Start Last Admin Trade Name Freq PRN Reason Stop Dose Admin Acetaminophen 650 mg 02/12/20 17:36 Acetaminophen 325 Mg Tablet PO Q6H PRN Pain, Mild (Pain Scale 1-3) Acetaminophen 650 mg 02/13/20 16:11 Acetaminophen 325 Mg Tablet PO ONCE PRN Pain, Mild (Pain Scale 1-3) Atorvastatin Calcium 20 mg 02/13/20 09:00 02/14/20 08:46 Atorvastatin Calcium 20 Mg Tablet PO 20 mg DAILY TRAV Administration Docusate Sodium 100 mg 02/12/20 17:36 Docusate Sodium 100 Mg Capsule PO DAILY PRN Constipation Metoprolol Succinate 100 mg 02/14/20 10:15 02/14/20 10:20 Metoprolol Succinate Er 50 Mg Tab.Er.24h PO 100 mg DAILY TRAV Administration Protocol Omeprazole 20 mg 02/13/20 09:00 02/14/20 08:46 Omeprazole 20 Mg Capsule.Dr PO 20 mg DAILY TRAV Administration Ondansetron HCl 4 mg 02/12/20 17:36 Ondansetron Hcl 4 Mg/2 Ml Vial IVPUSH Q8H PRN Nausea and Vomiting Pharmacy Consult 1 each 02/12/20 13:30 Consult Rx Perform Med Rec MISCELLANE ONCE PRN Consult order Sodium Chloride 3 ml 02/12/20 17:36 02/14/20 08:46 0.9 % Sodium Chloride Flush 3 Ml Syringe IVFLUSH 3 ml QSHIFT TRAV Administration EKG shows normal sinus rhythm with PAC Time Spent With Patient Time: Total time spent is greater than 50% in coordination of care (as documented) at patient's floor/unit and/or counseling patient: Time with patient: 15 - 24 minutes
--- NOTE | 2020-02-14 11:36 | P.DS_ITS ---
DS: Providers Provider Date of admission: 02/12/20 14:41 Primary care physician: Ruben Dick PA-C Consults: 02/12/20 17:36 Consult to Physician Routine Consulting Provider: Liborio Londono Reason for consultation: afib rvr Has provider been notified: No DS: Diagnosis Discharge Diagnosis (1) Persistent atrial fibrillation: Status: Acute (2) Essential hypertension: Status: Acute (3) Acute kidney injury: Status: Acute (4) A-fib: Status: Acute DS: Summary Hospital Course Hospital Course: 85-year-old female with past medical history of AFib on Coumadin, hypertension, and hyperlipidemia as well as gastric reflex who presents to the hospital with complaints of multiple episodes of diarrhea. Patient reports that for the past 1 week she has had nonstop diarrhea throughout the day, watery nonbloody. She reports that about a month ago she was treated for UTI with antibiotics. She has no abdominal pain, no nausea or vomiting. No lower extremity edema, no chest pain, no shortness of breath, no headache no change in vision, and no urinary symptoms at this time. On arrival to the ED patient hemodynamically stable with a heart rate in the 140s in AFib. Patient denies having any shortness of breath, chest pain, or palpitations. Labs are significant for sodium of 132, BUN of 56, creatinine of 2.70 (12/03 creatinine of 1.47), with the high sensitivity troponin of 37.7. Patient has no chest pain CT abdomen revealed several segments of large bowel with adjacent fluid and fat stranding suggestive of infection/inflammation. The appearance favors colitis/proctitis. Given the multifocal findings consider colonoscopy after the acute episode has improved per radiology. Patient will be admitted for further management Past medical history: AFib on Coumadin, GERD, hyperlipidemia, hypertension. Hospital Course problem mc section: 85-year-old female with a history of atrial fibrillation on Coumadin who was sent from Cardiology office with rapid atrial fibrillation 1.atrial fibrillation with rapid ventricular response: Initially started on Cardizem drip, INR was above 3 mostly during the admission even without warfarin. Subsequently patient was seen by Cardiology and cardioversion was done patient seems to converted back with sinus rhythm and Cardiology recommended to continue her home metoprolol, cardio may arrange outpatient appointment for further management. Since patient had cardioversion we will continue her home dose of Coumadin for now and check INR on Sunday02/15/30. Patient is going home, cardio may arrange their outpatient appointment. 2. JUWAN on CKD: Which improved with p.o. hydration. Near baseline Monitor renal function and electrolytes with PCP and further management outpatient as per PCP. 3.HFpEF no acute exacerbation not on diuretics at home Above management discussed with the patient in detail length she understand and in agreement with the above plan, time spent 50 minutes and 50% time spent on counseling. Significant findings: As above. Procedures performed: None. Treatment and response: As above. Complications: None. Time Spent with Patient Time attestation: Total time spent providing and/or coordinating discharge services: Physical Exam Vital Signs: Vital Signs: Vital Signs Temp Pulse Resp BP Pulse Ox 02/14/20 10:20 96 118/70 02/14/20 08:00 97.3 F 92 20 126/68 95 02/14/20 04:00 98.2 F 90 18 127/66 94 02/14/20 03:56 98.2 F 90 17 127/66 94 02/13/20 23:21 97.2 F 77 18 113/59 L 94 02/13/20 19:29 98.2 F 68 18 147/78 H 99 02/13/20 19:25 98.5 F 74 18 120/66 96 02/13/20 17:18 97.5 F 72 20 134/74 95 02/13/20 17:02 68 16 122/70 99 02/13/20 16:46 73 16 113/60 96 02/13/20 16:30 98.3 F 66 16 107/60 97 02/13/20 16:25 98 F 65 16 106/63 96 02/13/20 16:20 67 16 106/63 98 02/13/20 16:15 64 16 100/54 L 96 02/13/20 16:10 98.4 F 69 16 103/69 95 02/13/20 15:55 97.3 F 93 16 117/77 95 02/13/20 12:00 98.2 F 104 H 18 127/44 L 93 Body Mass Index 26.4 Physical exam: Cvs: [id number], [id number] , no murmur res: clear to auscultation ,no rhonchii or wheezing abd: no rebound or guarding ,nt, bs present. ext pulses present , no cyanosis neuro: axo3 , nonfocal. DS: Data Data Completed and Pending Labs on day of discharge: Labs from last 24 hours 02/14/20 02/13/20 06:01 15:28 PT 36.7 H 44.8 H D INR 3.1 H 3.7 H Discharge Plan Discharge Patient Disposition: Home Health Service Referrals: [facility] [Other] Ruben Dick PA-C [Primary Care Provider] - 1 Week (02/18/2020 5:15 PM If you can't keep this appointment please call and reschedule.) Discharge Medications: Continued atorvastatin 20 mg tablet 1 tab PO DAILY RF: 0 metoprolol succinate 50 mg tablet extended release 24 hr 2 tab PO DAILY RF: 0 amlodipine 10 mg tablet 1 tab PO DAILY RF: 0 warfarin 2 mg tablet 4 mg PO SUTUWETHFRSA@1600 RF: 0 omeprazole 20 mg capsule,delayed release(DR/EC) 1 cap PO DAILY RF: 0 raloxifene 60 mg tablet 60 mg PO DAILY RF: 0 warfarin 2 mg Tablet 2 mg PO MO@1600 RF: 0 calcium carbonate [Calcium 600] 600 mg calcium (1,500 mg) Tablet 1,200 mg PO DAILY RF: 0 Discontinued warfarin 2 mg tablet 4 mg PO DAILY RF: 0 Hold Instructions: Resume on 01/20/20. monitor inr closely Discharge Orders: Discharge Order (Routine); Ordered 02/14/20 Ordered By: Karina Burkett Diet: advance to your usual diet Activity on Discharge: As tolerated Other Ambulatory Orders: Basic Metabolic Panel (Routine) Timeframe: 1 Week Facility: [facility] - Location: Laboratory Ordered By: Karina Burkett Prothrombin Time INR (Routine) Timeframe: 2 Days Facility: [facility] - Location: Laboratory Ordered By: Karina Burkett Visit Report Forms: Patient Portal Discharge page Care Plan Goals: Patient came with the irregular heartbeat with high rate: Patient was started on heart rate control medication diltiazem and seen by Cardiology and patient undergone cardioversion yesterday and her heart rate improved going home with her regular home home medications, patient's INR was above 3 without even using warfarin in the hospital, on discharge patient will resume her home warfarin and recheck her INR on Sunday02/16/2020. Further adjustment of warfarin outpatient as per PCP, cardio may arrange their outpatient appointment as needed. Her renal function improved with p.o. hydration, monitor renal function and electrolytes with PCP and further management as per PCP. Health Concerns: As above. Plan of Treatment: As above.
--- NOTE | 2020-02-14 11:54 | MHC.CM.PN ---
PT WILL DC HOME TODAY WITH RESUMPTION OF [facility]. [facility] NOTIFIED VIA T/C ([phone]) AND DISCHARGE SUMMARY WILL BE FAXED ([phone]) ONCE AVAILABLE. FAMILY WILL PROVIDE TRANSPORTATION AT [place]
--- NOTE | 2020-02-14 13:18 | MHC.CM.PN ---
DC summary faxed to [facility] ([phone])
== END 2020-02-14 13:46 | disposition home health service (06) | DRG 309 ==
LOC: HO.ED 13:17 → HO.IMC 14:51
PROVIDERS: Internal Medicine Cardiovascular Disease; Physician Assistant Medical; Admitting Provider Internal Medicine; Emergency Provider Emergency Medicine; PCP Physician Assistant; Visit Provider Internal Medicine
PROC: 5A2204Z Restoration of Cardiac Rhythm, Single (ICD-10-PCS; principal; 2020-02-13 17:00)
DX: I48.19 Other persistent atrial fibrillation (principal); I13.0 Hypertensive heart and chronic kidney disease with heart failure and stage 1 through stage 4 chronic kidney disease, or unspecified chronic kidney disease; I50.32 Chronic diastolic (congestive) heart failure; N18.4 Chronic kidney disease, stage 4 (severe); N17.9 Acute kidney failure, unspecified; E78.5 Hyperlipidemia, unspecified; K21.9 Gastro-esophageal reflux disease without esophagitis; Z20.828 Contact with and (suspected) exposure to other viral communicable diseases; Z79.01 Long term (current) use of anticoagulants; Z79.899 Other long term (current) drug therapy
CPT/HCPCS: 36415; 71045; 80048; 83880; 84484; 85025; 85027; 85610; 87635; 92960; 93005; 99212; 99285; 99291

== ENCOUNTER → 2020-02-16 14:56 | Outpatient (BNVA) | payer MEDICARE, SELFPAY | PROVIDERS: PCP Physician Assistant; Visit Provider Internal Medicine | DX: I48.20 Chronic atrial fibrillation, unspecified (principal); Z51.81 Encounter for therapeutic drug level monitoring; Z79.01 Long term (current) use of anticoagulants | CPT/HCPCS: Q3014 ==

== ENCOUNTER 2020-02-17 11:02 | Outpatient (REF) | payer MEDICARE, SELFPAY ==
[2020-02-17 11:58] LABS: INTERNATIONAL NORM RATIO 1.6 (0.9-1.1); Prothrombin Time 18.8 SEC (10.8-13.0)
[2020-02-17 12:30] LABS: Anion Gap 16 (12-20); Blood Urea Nitrogen 28 mg/dL (9-16); Calcium 9.6 mg/dL (8.4-10.2); Carbon Dioxide 21 mmol/L (22-29); Chloride 106 mmol/L (96-108); Estimated Glomerular Filt Rate 30; Glucose Random 143 mg/dL (60-115); Potassium 3.9 mmol/l (3.3-5.1); Sodium 139 mmol/L (135-145)
== END 2020-02-17 11:03 | disposition home or self-care (01) ==
LOC: HO.LAB 11:02
PROVIDERS: PCP Physician Assistant; Visit Provider Internal Medicine
DX: N17.9 Acute kidney failure, unspecified (principal); I48.91 Unspecified atrial fibrillation
CPT/HCPCS: 36415; 80048; 85610

== ENCOUNTER → 2020-02-19 11:52 | Outpatient (BNVA) | payer MEDICARE, SELFPAY | PROVIDERS: PCP Physician Assistant; Referring Provider Physician Assistant; Visit Provider Internal Medicine | DX: Z76.89 Persons encountering health services in other specified circumstances (principal) ==

== ENCOUNTER 2020-02-20 10:26 | Outpatient (REF) | payer MEDICARE, SELFPAY ==
--- NOTE | 2020-02-20 | MM_ITS ---
EXAMINATION: MM SCREENING DIGITAL BREAST TOMOSYNTHESIS, RIGHT CLINICAL INFORMATION: Screening. Asymptomatic. Status post left mastectomy and right breast lumpectomy. COMPARISON: Mammography: February 14, 2019 and studies dating back to April 02, 2012 TECHNIQUE: Digital breast tomosynthesis is performed in both the craniocaudal and mediolateral oblique views along with computer-aided detection (CAD). Synthesized 2D images are generated from the tomosynthesis. FINDINGS: There are scattered areas of fibroglandular density (ACR BI-RADS breast composition Category b). Status post left mastectomy. Postsurgical change in the right breast is present with no new abnormal dominant mass or suspicious grouping of microcalcifications. MM/MM tomosynthesis screening RT IMPRESSION: There are no significant changes from prior study. ASSESSMENT: BI-RADS 2: Benign RECOMMENDATION: Routine annual mammography screening. This patient's information was entered into a reminder system with a target due date for their next mammogram.
== END 2020-02-20 10:27 | disposition home or self-care (01) ==
LOC: HO.MAMMO 10:26
PROVIDERS: PCP Physician Assistant; Visit Provider Physician Assistant
DX: Z12.31 Encounter for screening mammogram for malignant neoplasm of breast (principal)
CPT/HCPCS: 77067

== ENCOUNTER → 2020-02-26 11:46 | Outpatient (BNVA) | payer MEDICARE, SELFPAY | PROVIDERS: PCP Physician Assistant; Visit Provider Internal Medicine | DX: I48.0 Paroxysmal atrial fibrillation (principal); R94.39 Abnormal result of other cardiovascular function study; I36.2 Nonrheumatic tricuspid (valve) stenosis with insufficiency; I11.0 Hypertensive heart disease with heart failure; I50.32 Chronic diastolic (congestive) heart failure; I27.20 Pulmonary hypertension, unspecified; Z79.01 Long term (current) use of anticoagulants; Z79.899 Other long term (current) drug therapy | CPT/HCPCS: 93005; 99212; Q3014 ==

== ENCOUNTER → 2020-03-04 11:34 | Outpatient (BNVA) | payer MEDICARE, SELFPAY | PROVIDERS: PCP Physician Assistant; Visit Provider Internal Medicine | DX: Z76.89 Persons encountering health services in other specified circumstances (principal) ==

== ENCOUNTER → 2020-03-10 10:51 | Outpatient (BNVA) | payer MEDICARE, SELFPAY | PROVIDERS: PCP Physician Assistant; Visit Provider Internal Medicine | DX: I48.20 Chronic atrial fibrillation, unspecified (principal); Z51.81 Encounter for therapeutic drug level monitoring; Z79.01 Long term (current) use of anticoagulants | CPT/HCPCS: Q3014 ==

== ENCOUNTER → 2020-03-15 10:44 | Outpatient (BNVA) | payer MEDICARE, SELFPAY | PROVIDERS: PCP Physician Assistant; Visit Provider Internal Medicine | DX: Z76.89 Persons encountering health services in other specified circumstances (principal) ==

== ENCOUNTER → 2020-03-16 13:21 | Outpatient (REF) | payer MEDICARE, SELFPAY ==
--- NOTE | 2020-03-16 13:31 | ECG_ITS ---
Hook-up date: 2020-03-16 13:42:00 Duration: 25:28:00 Test Indications: UNSPEC. AFIB Medications: 516883 QRS complexes 280 Ventricular ectopics which represent <1 % of total QRS comp. 533 Supraventricular ectopics which represent <1 % of total QRS comp. * Paced QRS complexs which represent % of total QRS comp. VENTRICULAR ECTOPY 280 Isolated 6 Bigeminal Cycles 0 Couplets 0 Runs 0 Beats in Runs * Beats LONGEST at * BPM at :: -- * Beats FASTEST at * BPM at :: -- SUPRAVENTRICULAR ECTOPY 460 Isolated 11 Couplets 13 Runs 51 Beats in Runs 6 Beats LONGEST at 111 BPM at 01:30:24 2020-03-17 3 Beats FASTEST at 128 BPM at 15:28:02 2020-03-16 HEART RATES 59 MIN at 02:03:04 2020-03-17 73 AVG 124 MAX at 13:09:18 2020-03-17 LONGEST RR 1.3200 secs at 07:13:27 2020-03-17 S-T LEVELS Channel 1 - 128 mm at 13:42:00 2020-03-16 - 128 mm at 13:42:00 2020-03-16 Channel 2 - 128 mm at 13:42:00 2020-03-16 - 128 mm at 13:42:00 2020-03-16 Channel 3 - 128 mm at 03:30:11 -- - 128 mm at 03:30:11 Underlying rhythm is sinus; Average ventricular rate 73/min; range 59-124/min; Rare supraventricular/ventricular ectopy; No sustained arrhythmias; Patient did not report any symptoms in the diary Referred By: Ton Leon Overread By: TON LEON
== END ==
LOC: HO.CARD 13:21
PROVIDERS: PCP Physician Assistant; Visit Provider Internal Medicine
DX: I48.91 Unspecified atrial fibrillation (principal)
CPT/HCPCS: 93225; 93226

== ENCOUNTER → 2020-03-17 14:14 | Outpatient (BNVA) | payer MEDICARE, SELFPAY | PROVIDERS: PCP Physician Assistant; Visit Provider Internal Medicine | DX: I48.0 Paroxysmal atrial fibrillation (principal) | CPT/HCPCS: 93005 ==

== ENCOUNTER → 2020-03-18 11:33 | Outpatient (BNVA) | payer MEDICARE, SELFPAY | PROVIDERS: PCP Physician Assistant; Visit Provider Internal Medicine | DX: I48.20 Chronic atrial fibrillation, unspecified (principal); Z51.81 Encounter for therapeutic drug level monitoring; Z79.01 Long term (current) use of anticoagulants | CPT/HCPCS: 99211 ==

== ENCOUNTER → 2020-03-25 10:30 | Outpatient (BNVA) | payer MEDICARE, SELFPAY | PROVIDERS: PCP Physician Assistant; Visit Provider Internal Medicine | DX: I48.20 Chronic atrial fibrillation, unspecified (principal); Z51.81 Encounter for therapeutic drug level monitoring; Z79.01 Long term (current) use of anticoagulants | CPT/HCPCS: Q3014 ==

== ENCOUNTER → 2020-03-29 14:17 | Outpatient (BNVA) | payer MEDICARE, SELFPAY | PROVIDERS: PCP Internal Medicine; Visit Provider Internal Medicine | DX: I48.20 Chronic atrial fibrillation, unspecified (principal); Z51.81 Encounter for therapeutic drug level monitoring; Z79.01 Long term (current) use of anticoagulants | CPT/HCPCS: Q3014 ==

== ENCOUNTER → 2020-04-01 13:50 | Outpatient (BNVA) | payer MEDICARE, SELFPAY | PROVIDERS: PCP Physician Assistant; Visit Provider Internal Medicine | DX: I48.20 Chronic atrial fibrillation, unspecified (principal); Z51.81 Encounter for therapeutic drug level monitoring; Z79.01 Long term (current) use of anticoagulants | CPT/HCPCS: Q3014 ==

== ENCOUNTER → 2020-04-05 12:08 | Outpatient (BNVA) | payer MEDICARE, SELFPAY | PROVIDERS: PCP Physician Assistant; Visit Provider Internal Medicine | DX: I48.20 Chronic atrial fibrillation, unspecified (principal); Z51.81 Encounter for therapeutic drug level monitoring; Z79.01 Long term (current) use of anticoagulants | CPT/HCPCS: Q3014 ==

== ENCOUNTER → 2020-04-12 15:46 | Outpatient (BNVA) | payer MEDICARE, SELFPAY | PROVIDERS: PCP Physician Assistant; Visit Provider Internal Medicine | DX: I48.20 Chronic atrial fibrillation, unspecified (principal); Z51.81 Encounter for therapeutic drug level monitoring; Z79.01 Long term (current) use of anticoagulants | CPT/HCPCS: 99211 ==

== ENCOUNTER → 2020-04-19 11:32 | Outpatient (BNVA) | payer MEDICARE, SELFPAY | PROVIDERS: PCP Physician Assistant; Visit Provider Internal Medicine | DX: I48.20 Chronic atrial fibrillation, unspecified (principal); Z51.81 Encounter for therapeutic drug level monitoring; Z79.01 Long term (current) use of anticoagulants | CPT/HCPCS: Q3014 ==

== ENCOUNTER → 2020-04-26 13:27 | Outpatient (BNVA) | payer MEDICARE, SELFPAY | PROVIDERS: PCP Physician Assistant; Visit Provider Internal Medicine | DX: I48.20 Chronic atrial fibrillation, unspecified (principal); Z51.81 Encounter for therapeutic drug level monitoring; Z79.01 Long term (current) use of anticoagulants | CPT/HCPCS: 99211 ==

== ENCOUNTER → 2020-04-27 10:53 | Outpatient (BNVA) | payer MEDICARE, SELFPAY | PROVIDERS: PCP Physician Assistant; Visit Provider Internal Medicine | DX: I48.0 Paroxysmal atrial fibrillation (principal); I11.0 Hypertensive heart disease with heart failure; I50.32 Chronic diastolic (congestive) heart failure; I36.2 Nonrheumatic tricuspid (valve) stenosis with insufficiency; I27.20 Pulmonary hypertension, unspecified; R94.39 Abnormal result of other cardiovascular function study | CPT/HCPCS: 99212 ==

== ENCOUNTER 2020-05-10 12:57 | Outpatient (REF) | payer MEDICARE, SELFPAY ==
[2020-05-10 14:35] LABS: TSH reflex Free T4 2.65 mIU/mL (0.32-4.0)
== END 2020-05-10 12:58 | disposition home or self-care (01) ==
LOC: HO.LAB 12:57
PROVIDERS: PCP Physician Assistant; Visit Provider Internal Medicine
DX: I48.0 Paroxysmal atrial fibrillation (principal); Z51.81 Encounter for therapeutic drug level monitoring; Z79.01 Long term (current) use of anticoagulants
CPT/HCPCS: 36415; 84443; 85610; 99211

== ENCOUNTER → 2020-05-27 13:05 | Outpatient (BNVA) | payer MEDICARE, SELFPAY | PROVIDERS: PCP Physician Assistant; Visit Provider Internal Medicine | DX: I48.20 Chronic atrial fibrillation, unspecified (principal); Z51.81 Encounter for therapeutic drug level monitoring; Z79.01 Long term (current) use of anticoagulants | CPT/HCPCS: 85610; 99211 ==

== ENCOUNTER → 2020-06-07 11:12 | Outpatient (BNV) | payer MEDICARE, SELFPAY | PROVIDERS: PCP Physician Assistant; Visit Provider Internal Medicine Medical Oncology | DX: M81.0 Age-related osteoporosis without current pathological fracture (principal); Z85.3 Personal history of malignant neoplasm of breast | CPT/HCPCS: 99212; 99213; 99214 ==

== ENCOUNTER → 2020-06-17 13:02 | Outpatient (BNVA) | payer MEDICARE, SELFPAY | PROVIDERS: PCP Physician Assistant; Visit Provider Internal Medicine | DX: I48.20 Chronic atrial fibrillation, unspecified (principal); Z51.81 Encounter for therapeutic drug level monitoring; Z79.01 Long term (current) use of anticoagulants | CPT/HCPCS: 85610; 99211 ==

== ENCOUNTER → 2020-07-15 13:04 | Outpatient (BNVA) | payer MEDICARE, SELFPAY | PROVIDERS: PCP Physician Assistant; Visit Provider Internal Medicine | DX: I48.20 Chronic atrial fibrillation, unspecified (principal); Z51.81 Encounter for therapeutic drug level monitoring; Z79.01 Long term (current) use of anticoagulants | CPT/HCPCS: 85610; 99211 ==

== ENCOUNTER → 2020-08-12 13:01 | Outpatient (BNVA) | payer MEDICARE, SELFPAY | PROVIDERS: PCP Physician Assistant; Visit Provider Internal Medicine | DX: I48.20 Chronic atrial fibrillation, unspecified (principal); Z51.81 Encounter for therapeutic drug level monitoring; Z79.01 Long term (current) use of anticoagulants | CPT/HCPCS: 85610; 99211 ==

== ENCOUNTER → 2020-08-24 11:24 | Outpatient (BNVA) | payer MEDICARE, SELFPAY | PROVIDERS: PCP Physician Assistant; Visit Provider Internal Medicine | DX: I48.20 Chronic atrial fibrillation, unspecified (principal); Z51.81 Encounter for therapeutic drug level monitoring; Z79.01 Long term (current) use of anticoagulants | CPT/HCPCS: 85610; 99211 ==

== ENCOUNTER → 2020-08-27 09:24 | Outpatient (BNVA) | payer MEDICARE, SELFPAY | PROVIDERS: PCP Physician Assistant; Visit Provider Internal Medicine | DX: I48.20 Chronic atrial fibrillation, unspecified (principal); Z51.81 Encounter for therapeutic drug level monitoring; Z79.01 Long term (current) use of anticoagulants | CPT/HCPCS: 85610; 99211 ==

== ENCOUNTER → 2020-09-10 10:00 | Outpatient (BNVA) | payer MEDICARE, SELFPAY | PROVIDERS: PCP Physician Assistant; Visit Provider Internal Medicine | DX: I48.20 Chronic atrial fibrillation, unspecified (principal); Z51.81 Encounter for therapeutic drug level monitoring; Z79.01 Long term (current) use of anticoagulants | CPT/HCPCS: 85610; 99211 ==

== ENCOUNTER → 2020-10-08 09:55 | Outpatient (BNVA) | payer MEDICARE, SELFPAY | PROVIDERS: PCP Physician Assistant; Visit Provider Internal Medicine | DX: I48.20 Chronic atrial fibrillation, unspecified (principal); Z51.81 Encounter for therapeutic drug level monitoring; Z79.01 Long term (current) use of anticoagulants | CPT/HCPCS: 85610; 99211 ==

== ENCOUNTER → 2020-10-26 10:08 | Outpatient (BNVA) | payer MEDICARE, SELFPAY | PROVIDERS: PCP Physician Assistant; Referring Provider Physician Assistant; Visit Provider Internal Medicine | DX: I48.0 Paroxysmal atrial fibrillation (principal); I50.32 Chronic diastolic (congestive) heart failure; R94.39 Abnormal result of other cardiovascular function study; I36.2 Nonrheumatic tricuspid (valve) stenosis with insufficiency; I27.20 Pulmonary hypertension, unspecified; I10 Essential (primary) hypertension; Z79.899 Other long term (current) drug therapy | CPT/HCPCS: 93005; 99212 ==

== ENCOUNTER → 2020-11-05 09:54 | Outpatient (BNVA) | payer MEDICARE, SELFPAY | PROVIDERS: PCP Physician Assistant; Visit Provider Internal Medicine | DX: I48.0 Paroxysmal atrial fibrillation (principal); Z51.81 Encounter for therapeutic drug level monitoring; Z79.01 Long term (current) use of anticoagulants | CPT/HCPCS: 85610; 99211 ==

== ENCOUNTER → 2020-11-19 10:04 | Outpatient (BNVA) | payer MEDICARE, SELFPAY | PROVIDERS: PCP Physician Assistant; Visit Provider Internal Medicine | DX: I48.0 Paroxysmal atrial fibrillation (principal); Z51.81 Encounter for therapeutic drug level monitoring; Z79.01 Long term (current) use of anticoagulants | CPT/HCPCS: 85610; 99211 ==

== ENCOUNTER → 2020-12-10 09:57 | Outpatient (BNVA) | payer MEDICARE, SELFPAY | PROVIDERS: PCP Physician Assistant; Visit Provider Internal Medicine | DX: I48.0 Paroxysmal atrial fibrillation (principal); Z51.81 Encounter for therapeutic drug level monitoring; Z79.01 Long term (current) use of anticoagulants | CPT/HCPCS: 85610; 99211 ==

== ENCOUNTER → 2021-01-07 10:01 | Outpatient (BNVA) | payer MEDICARE, SELFPAY | PROVIDERS: PCP Physician Assistant; Visit Provider Internal Medicine | DX: I48.0 Paroxysmal atrial fibrillation (principal); Z51.81 Encounter for therapeutic drug level monitoring; Z79.01 Long term (current) use of anticoagulants | CPT/HCPCS: 85610; 99211 ==

== ENCOUNTER → 2021-02-04 10:08 | Outpatient (BNVA) | payer MEDICARE, SELFPAY | PROVIDERS: PCP Physician Assistant; Visit Provider Internal Medicine | DX: I48.0 Paroxysmal atrial fibrillation (principal); Z51.81 Encounter for therapeutic drug level monitoring; Z79.01 Long term (current) use of anticoagulants | CPT/HCPCS: 85610; 99211 ==

== ENCOUNTER 2021-02-25 10:42 | Outpatient (REF) | payer MEDICARE, SELFPAY ==
--- NOTE | ~2021-02-25 | MM_ITS ---
EXAMINATION: MM SCREENING DIGITAL BREAST TOMOSYNTHESIS, RIGHT CLINICAL INFORMATION: History remote left mastectomy, 1992. Right breast cancer status post lumpectomy, 2012. COMPARISON: Mammography: 02/20/2020, 02/14/2019, 02/12/2018 TECHNIQUE: Digital breast tomosynthesis is performed in both the craniocaudal and mediolateral oblique views along with computer-aided detection (CAD). Synthesized 2D images are generated from the tomosynthesis. Additional exaggerated right CC view is provided. FINDINGS: There are scattered areas of fibroglandular density (ACR BI-RADS breast composition Category b). There are no significant masses, abnormal calcifications, or other abnormalities. There are post therapy changes again seen with stable scarring. There is dystrophic calcification within the scar. Other scattered benign coarse and vascular calcifications again seen. Surgical clips right axilla. No significant changes. MM/MM tomosynthesis screening RT IMPRESSION: No mammographic evidence of malignancy. Post therapy changes, stable. ASSESSMENT: BI-RADS 2: Benign RECOMMENDATION: Routine annual mammography screening. This patient's information was entered into a reminder system with a target due date for their next mammogram.
== END 2021-02-25 10:43 | disposition home or self-care (01) ==
LOC: HO.MAMMO 10:42
PROVIDERS: Absent Provider Internal Medicine Medical Oncology; Visit Provider Physician Assistant
DX: Z12.31 Encounter for screening mammogram for malignant neoplasm of breast (principal)
CPT/HCPCS: 77063; 77067

== ENCOUNTER → 2021-03-04 10:10 | Outpatient (BNVA) | payer MEDICARE, SELFPAY | PROVIDERS: PCP Physician Assistant; Visit Provider Internal Medicine | DX: I48.0 Paroxysmal atrial fibrillation (principal); Z51.81 Encounter for therapeutic drug level monitoring; Z79.01 Long term (current) use of anticoagulants | CPT/HCPCS: 85610; 99211 ==

== ENCOUNTER → 2021-04-01 10:47 | Outpatient (BNVA) | payer MEDICARE, SELFPAY | PROVIDERS: PCP Physician Assistant; Visit Provider Internal Medicine | DX: I48.0 Paroxysmal atrial fibrillation (principal); Z51.81 Encounter for therapeutic drug level monitoring; Z79.01 Long term (current) use of anticoagulants | CPT/HCPCS: 85610; 99211 ==

== ENCOUNTER → 2021-04-29 10:43 | Outpatient (BNVA) | payer MEDICARE, SELFPAY | PROVIDERS: PCP Physician Assistant; Visit Provider Internal Medicine | DX: I48.0 Paroxysmal atrial fibrillation (principal); Z51.81 Encounter for therapeutic drug level monitoring; Z79.01 Long term (current) use of anticoagulants | CPT/HCPCS: 85610; 99211 ==

== ENCOUNTER → 2021-05-03 10:42 | Outpatient (BNVA) | payer MEDICARE, SELFPAY | PROVIDERS: PCP Physician Assistant; Referring Provider Physician Assistant; Visit Provider Internal Medicine | DX: I48.0 Paroxysmal atrial fibrillation (principal); I11.0 Hypertensive heart disease with heart failure; I50.32 Chronic diastolic (congestive) heart failure; I35.2 Nonrheumatic aortic (valve) stenosis with insufficiency; I27.20 Pulmonary hypertension, unspecified; R94.39 Abnormal result of other cardiovascular function study | CPT/HCPCS: 93005; 99212 ==

== ENCOUNTER 2021-05-30 10:23 | Outpatient (REF) | payer MEDICARE, SELFPAY ==
[2021-05-30 11:24] LABS: Hematocrit 41.2 % (37.0-47.0); Hemoglobin 13.5 g/dl (12.0-16.0); Mean Corpuscular HGB Conc 32.8 g/dl (31.0-35.0); Mean Corpuscular Hemoglobin 30.8 pg (27.0-33.0); Mean Corpuscular Volume 93.8 fL (80.0-98.0); Mean Platelet Volume 9.7 fL (9.4-12.3); Platelet Count 207 X10*3/uL (160-400); Red Blood Count 4.39 X10*6/uL (4.20-5.50); Red Cell Distribution Width 13.9 % (11.0-16.0); White Blood Count 7.7 X10*3/uL (4.8-10.8)
[2021-05-30 11:57] LABS: Alanine Aminotransferase 18 U/L (0-31); Albumin Level 4.2 g/dL (3.5-5.0); Alkaline Phosphatase 79 U/L (39-117); Anion Gap 13 (12-20); Aspartate Amino Transferase 27 U/L (5-31); Bilirubin Total 0.6 mg/dL (0.0-1.0); Blood Urea Nitrogen 37 mg/dL (9-16); Calcium 9.9 mg/dL (8.4-10.2); Carbon Dioxide 22 mmol/L (22-29); Chloride 110 mmol/L (96-108); Cholesterol 158 mg/dL; Estimated Glomerular Filt Rate 25; Glucose Fasting 123 mg/dL (60-99); HDL Cholesterol 61 mg/dL; Iron 85 mcg/dL (30-160); LDL Cholesterol Calculated 75 mg/dl; Percent Iron Saturation 26 % (15-50); Sodium 140 mmol/L (135-145); Total Iron Binding Capacity 328 mcg/dL (228-428); Total Protein 7.2 g/dL (6.5-8.0); Triglycerides 110 mg/dL; Unsaturated Iron Binding 243 ug/dL
[2021-05-30 12:21] LABS: TSH reflex Free T4 2.75 uIU/mL (0.32-4.0)
== END 2021-05-30 10:24 | disposition home or self-care (01) ==
LOC: HO.LAB 10:23
PROVIDERS: PCP Physician Assistant; Visit Provider Physician Assistant
DX: I48.0 Paroxysmal atrial fibrillation (principal); D50.9 Iron deficiency anemia, unspecified; I10 Essential (primary) hypertension; Z51.81 Encounter for therapeutic drug level monitoring; Z79.01 Long term (current) use of anticoagulants
CPT/HCPCS: 36415; 80053; 80061; 83540; 84443; 85027; 85610; 99211

== ENCOUNTER 2021-06-02 14:48 | Outpatient (REF) | payer MEDICARE, SELFPAY ==
[2021-06-02 15:21] LABS: Creatinine Urine 171.28 mg/dL; Microalbum/Creatinine Ratio Ur 57.8 ug/mg cr
== END 2021-06-02 14:49 | disposition home or self-care (01) ==
LOC: HO.LNP 14:48
PROVIDERS: Visit Provider Physician Assistant
DX: I48.0 Paroxysmal atrial fibrillation (principal)
CPT/HCPCS: 82043

== ENCOUNTER → 2021-06-27 11:09 | Outpatient (BNVA) | payer MEDICARE, SELFPAY | PROVIDERS: PCP Physician Assistant; Visit Provider Internal Medicine | DX: I48.0 Paroxysmal atrial fibrillation (principal); Z51.81 Encounter for therapeutic drug level monitoring; Z79.01 Long term (current) use of anticoagulants | CPT/HCPCS: 85610; 99211 ==

== ENCOUNTER → 2021-07-18 14:16 | Outpatient (BNVA) | payer MEDICARE, SELFPAY | PROVIDERS: PCP Physician Assistant; Visit Provider Internal Medicine | DX: I48.0 Paroxysmal atrial fibrillation (principal); Z51.81 Encounter for therapeutic drug level monitoring; Z79.01 Long term (current) use of anticoagulants | CPT/HCPCS: 85610; 99211 ==

== ENCOUNTER → 2021-08-15 10:57 | Outpatient (BNVA) | payer MEDICARE, SELFPAY | PROVIDERS: PCP Physician Assistant; Visit Provider Internal Medicine | DX: I48.0 Paroxysmal atrial fibrillation (principal); Z79.01 Long term (current) use of anticoagulants; Z51.81 Encounter for therapeutic drug level monitoring | CPT/HCPCS: 85610; 99211 ==

== ENCOUNTER → 2021-08-29 11:02 | Outpatient (BNVA) | payer MEDICARE, SELFPAY | PROVIDERS: PCP Physician Assistant; Visit Provider Internal Medicine | DX: I48.0 Paroxysmal atrial fibrillation (principal); Z79.01 Long term (current) use of anticoagulants; Z51.81 Encounter for therapeutic drug level monitoring | CPT/HCPCS: 85610; 99211 ==

== ENCOUNTER 2021-09-19 11:04 | Outpatient (REF) | payer MEDICARE, SELFPAY ==
[2021-09-19 12:59] LABS: Appearance Urine HAZY; Color Urine YELLOW; Glucose Urine UA NEG (NEG); Leukocyte Esterase Urine 2+ (NEG); Nitrite Urine POS (NEG); PH 5.5 (5.0-8.0); Specific Gravity - Urine 1.025 (1.005-1.025); Urine Blood NEG (NEG); Urine Ketones 5 MG/DL (NEG); Urine Protein TRACE MG/DL (NEG-TRACE)
[2021-09-19 13:11] LABS: Bacteria Urine 3+ /LPF; Squamous Epithelial Cell Urine 2+ /LPF
[2021-09-19 13:31] LABS: Creatinine Urine 171.11 mg/dL
[2021-09-19 14:04] LABS: Alanine Aminotransferase 18 U/L (0-31); Albumin Level 4.1 g/dL (3.5-5.0); Alkaline Phosphatase 71 U/L (39-117); Anion Gap 15 (12-20); Aspartate Amino Transferase 24 U/L (5-31); Bilirubin Total 0.8 mg/dL (0.0-1.0); Blood Urea Nitrogen 35 mg/dL (9-16); Carbon Dioxide 21 mmol/L (22-29); Chloride 105 mmol/L (96-108); Estimated Glomerular Filt Rate 24; Glucose Random 105 mg/dL (60-115); Potassium 4.4 mmol/L (3.3-5.1); Sodium 137 mmol/L (135-145)
[2021-09-20 14:47] LABS: Calcium (PTHI) 10.3 mg/dL (8.6-10.4); PTHI 83 pg/mL (16-77)
== END 2021-09-19 11:05 | disposition home or self-care (01) ==
LOC: HO.LAB 11:04
PROVIDERS: PCP Physician Assistant; Visit Provider Internal Medicine Hypertension Specialist
DX: I48.0 Paroxysmal atrial fibrillation (principal); N18.4 Chronic kidney disease, stage 4 (severe); Z51.81 Encounter for therapeutic drug level monitoring; Z79.01 Long term (current) use of anticoagulants
CPT/HCPCS: 36415; 80053; 81001; 81003; 83970; 85610; 99211

== ENCOUNTER 2021-10-07 07:32 | Outpatient (REF) | payer MEDICARE, SELFPAY ==
--- NOTE | ~2021-10-07 | US_ITS ---
EXAMINATION: US RETROPERITONEAL LIMITED (RENAL ONLY) CLINICAL INFORMATION: Chronic kidney disease, stage 4 (severe). COMPARISON: CT abdomen and pelvis without contrast dated 01/15/2020. TECHNIQUE: Real-time imaging of the kidneys. FINDINGS: RIGHT KIDNEY: 8.4 x 3.6 x 3.9 cm (SAG x AP x TRV). The kidney is normal in size, contour, and echogenicity. Renal cortical thickness is normal. No renal calculi or hydronephrosis. There are anechoic cysts in the upper pole measuring 1.4 x 1.4 x 1.5 cm, 2.7 x 1.6 x 1.6 cm, midpole measuring 0.6 x 0.6 x 0.8 cm and lower pole measuring 1.4 x 1.2 x 1.3 cm. LEFT KIDNEY: 10.7 x 4.4 x 4.8 cm (SAG x AP x TRV). The kidney is normal in size, contour, and echogenicity. Renal cortical thickness is normal. No renal calculi or hydronephrosis. There is a complex cyst with septation and echogenic foci in the mid to lower pole region measuring 8.3 x 6.5 x 7.4 cm. US/US renal BI IMPRESSION: Multiple simple right renal cysts. Complex cyst with echogenic foci left kidney mid to lower pole.
== END 2021-10-07 07:33 | disposition home or self-care (01) ==
LOC: HO.US 07:32
PROVIDERS: Visit Provider Internal Medicine Hypertension Specialist
DX: N18.4 Chronic kidney disease, stage 4 (severe) (principal)
CPT/HCPCS: 76775

== ENCOUNTER → 2021-10-19 10:56 | Outpatient (BNVA) | payer MEDICARE, SELFPAY | PROVIDERS: PCP Physician Assistant; Visit Provider Internal Medicine | DX: I48.0 Paroxysmal atrial fibrillation (principal); Z51.81 Encounter for therapeutic drug level monitoring; Z79.01 Long term (current) use of anticoagulants | CPT/HCPCS: 85610; 99211 ==

== ENCOUNTER → 2021-11-23 11:00 | Outpatient (BNVA) | payer MEDICARE, SELFPAY | PROVIDERS: PCP Physician Assistant; Visit Provider Internal Medicine | DX: I48.0 Paroxysmal atrial fibrillation (principal); Z79.01 Long term (current) use of anticoagulants; Z51.81 Encounter for therapeutic drug level monitoring | CPT/HCPCS: 85610; 99211 ==

== ENCOUNTER 2021-12-08 09:10 | Outpatient (REF) | payer MEDICARE, SELFPAY ==
[2021-12-08 10:17] LABS: Hematocrit 42.5 % (37.0-47.0); Mean Corpuscular HGB Conc 32.9 g/dl (31.0-35.0); Mean Corpuscular Hemoglobin 30.6 pg (27.0-33.0); Mean Platelet Volume 9.8 fL (9.4-12.3); Platelet Count 198 X10*3/uL (160-400); Red Blood Count 4.57 X10*6/uL (4.20-5.50); Red Cell Distribution Width 13.4 % (11.0-16.0); White Blood Count 5.5 X10*3/uL (4.8-10.8)
[2021-12-08 10:42] LABS: Alanine Aminotransferase 32 U/L (0-31); Albumin Level 3.9 g/dL (3.5-5.0); Alkaline Phosphatase 78 U/L (39-117); Anion Gap 14 (12-20); Aspartate Amino Transferase 37 U/L (5-31); Bilirubin Total 0.8 mg/dL (0.0-1.0); Blood Urea Nitrogen 25 mg/dL (9-16); Calcium 9.2 mg/dL (8.4-10.2); Carbon Dioxide 22 mmol/L (22-29); Chloride 109 mmol/L (96-108); Cholesterol 149 mg/dL; Estimated Glomerular Filt Rate 24; Glucose Fasting 105 mg/dL (60-99); HDL Cholesterol 52 mg/dL; LDL Cholesterol Calculated 73 mg/dl; Potassium 4.2 mmol/L (3.3-5.1); Sodium 141 mmol/L (135-145); Total Protein 6.8 g/dL (6.5-8.0); Triglycerides 122 mg/dL
== END 2021-12-08 09:11 | disposition home or self-care (01) ==
LOC: HO.LAB 09:10
PROVIDERS: PCP Physician Assistant; Visit Provider Physician Assistant
DX: I48.0 Paroxysmal atrial fibrillation (principal); N18.4 Chronic kidney disease, stage 4 (severe)
CPT/HCPCS: 36415; 80053; 80061; 85027

== ENCOUNTER → 2021-12-21 10:53 | Outpatient (BNVA) | payer MEDICARE, SELFPAY | PROVIDERS: PCP Physician Assistant; Visit Provider Internal Medicine | DX: I48.0 Paroxysmal atrial fibrillation (principal); Z51.81 Encounter for therapeutic drug level monitoring; Z79.01 Long term (current) use of anticoagulants | CPT/HCPCS: 85610; 99211 ==

== ENCOUNTER → 2021-12-22 12:22 | Outpatient (BNVA) | payer MEDICARE, SELFPAY | PROVIDERS: PCP Physician Assistant; Referring Provider Physician Assistant; Visit Provider Internal Medicine | DX: I48.0 Paroxysmal atrial fibrillation (principal); I50.32 Chronic diastolic (congestive) heart failure; R93.9 Diagnostic imaging inconclusive due to excess body fat of patient; I36.2 Nonrheumatic tricuspid (valve) stenosis with insufficiency; I27.20 Pulmonary hypertension, unspecified; I10 Essential (primary) hypertension; Z79.01 Long term (current) use of anticoagulants; Z79.899 Other long term (current) drug therapy | CPT/HCPCS: 93005; 99212 ==

== ENCOUNTER → 2022-01-18 11:02 | Outpatient (BNVA) | payer MEDICARE, SELFPAY | PROVIDERS: PCP Physician Assistant; Visit Provider Internal Medicine | DX: I48.0 Paroxysmal atrial fibrillation (principal); Z79.01 Long term (current) use of anticoagulants; Z51.81 Encounter for therapeutic drug level monitoring | CPT/HCPCS: 85610; 99211 ==

== ENCOUNTER → 2022-02-15 10:56 | Outpatient (BNVA) | payer MEDICARE, SELFPAY | PROVIDERS: PCP Physician Assistant; Visit Provider Internal Medicine | DX: I48.0 Paroxysmal atrial fibrillation (principal); Z79.01 Long term (current) use of anticoagulants; Z51.81 Encounter for therapeutic drug level monitoring | CPT/HCPCS: 85610; 99211 ==

== ENCOUNTER 2022-03-03 11:21 | Outpatient (REF) | payer MEDICARE, SELFPAY ==
--- NOTE | ~2022-03-03 | MM_ITS ---
EXAMINATION: MM SCREENING DIGITAL BREAST TOMOSYNTHESIS, RIGHT CLINICAL INFORMATION: Remote left mastectomy, 1993. Right breast cancer postlumpectomy, 2013. Due for yearly. COMPARISON: Mammography: 02/25/2021, 02/20/2020, 02/14/2019 TECHNIQUE: Digital breast tomosynthesis is performed in both the craniocaudal and mediolateral oblique views along with computer-aided detection (CAD). Synthesized 2D images are generated from the tomosynthesis. Additional exaggerated right CC view is provided. FINDINGS: There are scattered areas of fibroglandular density (ACR BI-RADS breast composition Category b). There are post therapy changes similar to prior studies with stable scarring and dystrophic calcification in the scar, then surgical clips. There is no developing density or interval architectural abnormality. There are scattered benign coarse and some vascular calcifications again seen. MM/MM tomosynthesis screening RT IMPRESSION: -No mammographic evidence of malignancy. -Post therapy changes. ASSESSMENT: BI-RADS 2: Benign RECOMMENDATION: Routine annual mammography screening. This patient's information was entered into a reminder system with a target due date for their next mammogram.
== END 2022-03-03 11:22 | disposition home or self-care (01) ==
LOC: HO.MAMMO 11:21
PROVIDERS: Absent Provider Internal Medicine Medical Oncology; PCP Physician Assistant; Visit Provider Physician Assistant
DX: Z12.31 Encounter for screening mammogram for malignant neoplasm of breast (principal)
CPT/HCPCS: 77063; 77067

== ENCOUNTER → 2022-03-15 11:02 | Outpatient (BNVA) | payer MEDICARE, SELFPAY | PROVIDERS: PCP Physician Assistant; Visit Provider Internal Medicine | DX: I48.0 Paroxysmal atrial fibrillation (principal); Z51.81 Encounter for therapeutic drug level monitoring; Z79.01 Long term (current) use of anticoagulants | CPT/HCPCS: 85610; 99211 ==

== ENCOUNTER → 2022-04-12 10:55 | Outpatient (BNVA) | payer MEDICARE, SELFPAY | PROVIDERS: PCP Physician Assistant; Visit Provider Internal Medicine | DX: I48.0 Paroxysmal atrial fibrillation (principal); Z79.01 Long term (current) use of anticoagulants; Z51.81 Encounter for therapeutic drug level monitoring | CPT/HCPCS: 85610; 99211 ==

== ENCOUNTER 2022-05-10 10:38 | Outpatient (REF) | payer MEDICARE, SELFPAY ==
[2022-05-10 11:38] LABS: Hematocrit 43.1 % (37.0-47.0); Hemoglobin 14.3 g/dl (12.0-16.0); Mean Corpuscular HGB Conc 33.2 g/dl (31.0-35.0); Mean Corpuscular Hemoglobin 31.4 pg (27.0-33.0); Mean Corpuscular Volume 94.5 fL (80.0-98.0); Platelet Count 189 X10*3/uL (160-400); Red Blood Count 4.56 X10*6/uL (4.20-5.50); Red Cell Distribution Width 13.5 % (11.0-16.0); White Blood Count 7.7 X10*3/uL (4.8-10.8)
[2022-05-10 12:21] LABS: Anion Gap 16 (12-20); Blood Urea Nitrogen 27 mg/dL (9-16); Calcium 9.5 mg/dL (8.4-10.2); Carbon Dioxide 18 mmol/L (22-29); Chloride 107 mmol/L (96-108); Estimated Glomerular Filt Rate 26; Glucose Random 128 mg/dL (60-115); Potassium 4.1 mmol/L (3.3-5.1); Sodium 137 mmol/L (135-145)
[2022-05-10 12:33] LABS: Appearance Urine Cloudy; Color Urine Yellow; Glucose Urine UA Negative (Negative); Leukocyte Esterase Urine Large (3+) (Negative); Nitrite Urine Negative (Negative); PH 5.5 (5.0-9.0); UMIC TRIGGER UA YES; Urine Blood Negative (Negative); Urine Ketones Negative (Negative); Urine Protein Trace mg/dL (Neg-Trace)
[2022-05-10 12:48] LABS: Bacteria Urine 4+ (None Seen); WBC Urine 21-50 /HPF (0-5)
[2022-05-10 13:41] LABS: Creatinine Urine 135.51 mg/dL; Protein/Creatinine Ratio, Ur 0.15 (<0.2); Total Protein Urine Random 20 mg/dL (<12)
== END 2022-05-10 10:39 | disposition home or self-care (01) ==
LOC: HO.LAB 10:38
PROVIDERS: PCP Physician Assistant; Visit Provider Internal Medicine Hypertension Specialist
DX: I48.0 Paroxysmal atrial fibrillation (principal); N18.4 Chronic kidney disease, stage 4 (severe); Z51.81 Encounter for therapeutic drug level monitoring; Z79.01 Long term (current) use of anticoagulants
CPT/HCPCS: 36415; 80048; 81001; 84156; 85027; 85610; 99211

== ENCOUNTER → 2022-06-07 10:52 | Outpatient (BNVA) | payer MEDICARE, SELFPAY | PROVIDERS: PCP Physician Assistant; Visit Provider Internal Medicine | DX: I48.0 Paroxysmal atrial fibrillation (principal); Z79.01 Long term (current) use of anticoagulants; Z51.81 Encounter for therapeutic drug level monitoring | CPT/HCPCS: 85610; 99211 ==

== ENCOUNTER → 2022-06-14 13:37 | Outpatient (REF) | payer MEDICARE, SELFPAY ==
--- NOTE | 2022-06-14 13:40 | CA_ITS ---
Transthoracic Echocardiogram Patient (Last, First, Middle): Rosy Morrison J Gender: Female Date of : 1935 Age: 87 Procedure Date: 06/14/2022 Procedure Type: Transthoracic Echocardiogram Location: OP Height: 157.48 cm Weight: 55.34 kg BSA: 1.55 m2 Heart Rate: 53 bpm BP: 120 / 70 mmHg Title Vehicle Service Attendant: LINETTE Roman MD: Bar Child MD Hat Forming Machine Feeder: Liborio Londono MD Symptoms: I50.32 - Chronic diastolic (congestive) heart failure Study Quality: Adequate ECG Rhythm: Bradycardia Conclusions: - 1. Normal LV systolic function with grade 2 diastolic dysfunction 2. Moderately dilated left atrium 3. Mild mitral regurgitation and mild aortic stenosis 4. Afgv-xh-fddxkmle tricuspid regurgitation with upper limits of normal RV systolic pressure 5. No gross pericardial effusion Findings Left Ventricle Normal left ventricular cavity size. There is normal left ventricular wall thickness. The left ventricular systolic function is low normal. The visually estimated ejection fraction is between 50-55%. Spectral Doppler is indicative of a pseudonormal filling pattern. Elevated left atrial and left ventricular end-diastolic pressures. E/E prime ratio is >15, consistent with elevated filling pressures. Evidence suggests grade II (moderate) diastolic dysfunction. Right Ventricle Normal right ventricular cavity size and systolic function. Atria The left atrium is moderately dilated. The right atrium is mildly dilated. Aortic Valve There is moderate calcification of the aortic valve. There is mild thickening of the aortic valve. There is mild aortic valve stenosis. The mean gradient is 9 mmHg. There is no aortic valve regurgitation. Mitral Valve There is mild anterior and posterior mitral leaflet thickening. There is moderate mitral annular calcification. There is mild mitral valve regurgitation. There is no mitral valve stenosis. Pulmonic Valve The pulmonic valve was not well visualized. Tricuspid Valve Likely normal tricuspid valve structure and function. There is mild to moderate tricuspid valve regurgitation. The right ventricular systolic pressure is normal. Normal right atrial pressure. There is no evidence of pulmonary hypertension. Great Vessels The pulmonary artery was not well visualized. Venous The inferior vena cava is normal in size and collapses greater than 50% with inspiration. Pericardium/Pleural There is no evidence of pericardial effusion. Prior Study Comparison Changes noted compared to prior study dated: 04/30/2019. RV systolic pressure is measured to be within normal limits on this study Measurements 2D Linear Measurements IVSd: 0.88 0.6-0.9/0.6-1.0 cm LVIDd: 4.61 3.9-5.3/4.2-5.9 cm LVIDd Index: 2.97 2.4-3.2/2.2-3.1 cm/m2 LVIDs: 2.63 2.0-3.6 cm LVPWd: 0.82 0.7-1.1 cm LA Diam: 2.90 2.7-3.8/3.0-4.0 cm LAIDs Index: 1.87 1.5-2.3 cm/m2 LV Mass: 159.03 67-162/88-224 g LV Mass Index: 102.60 43-95/49-115 g/m2 LVOT Diam: 1.80 3.0+(-)1.3 cm 2D Systolic Function EF 4C: 51.70 >55% EF 2C: 54.00 >55% EF BiP: 53.10 >55% Mitral Valve MV Pk E: 0.79 MV PK A: 0.64 MV Decel Time: 194.00 E/A: 1.20 E'Lateral: 5.98 E'Medial: 3.59 E/E' Med: 22.10 E/E' Lat: 13.30 PHT: 57.00 MVA PHT: 3.86 Decel Imperial: 4.10 Aortic Valve AoV Pk Peter: 1.91 AoV Mn Peter: 1.41 AoV VTI: 0.49 AoV Pk Grad: 15.00 Aov Mn Grad: 9.00 JADE Cont.VTI: 0.97 LVOT LVOT Pk Peter: 0.72 LVOT Mn Peter: 0.56 LVOT VTI: 0.19 LVOT Pk Grad: 2.00 LVOT Mn Grad: 1.00 LVOT Diam: 1.80 LVOT Area: 2.54 Diastolic Function MV Pk E: 0.79 MV Pk A: 0.64 E/A: 1.20 E'Medial: 3.59 E/E' Med: 22.10 E' Laterial: 5.98 E/E' Lat: 13.30 Right Ventricle TAPSE (mm): 25.00 TVS' Peter: 8.59 Tricuspid Valve TR Pk Peter: 2.88 TR Pk Grad: 33.00 RA Press: 3.00 RVSP: 36.00 Great Vessels Aorta Sinus of Valsalva: 3.50 2.0-3.5 cm Ao Asc: 3.70 2.1-3.4 cm Pulmonary Valve PV Pk Peter: 1.06 Peak PV Grad: 4.00 Updated in Other Vendor System with Status of Final Liborio Londono MD electronically signed on 06/15/2022 11:49:28 AM with status of Final
--- NOTE | 2022-06-14 13:40 | HM_ITS ---
conclusion: 1. Patient was monitored for total period of 2 days and 23 hours 2. Baseline was normal sinus rhythm with average heart rate of 57 beats per minute 3. Frequent sinus bradycardia with 71% of time heart rate below 60 beats per minute with lowest heart rate of 51 beats per minute with no significant pauses 4. Occasional PACs with total burden of 0.3% 5. Four short episodes of SVT with longest lasting 8 beats 6. No patient reported events MTDD
== END ==
LOC: HO.CARD 13:37
PROVIDERS: PCP Physician Assistant; Visit Provider Internal Medicine
DX: I48.0 Paroxysmal atrial fibrillation (principal); I50.32 Chronic diastolic (congestive) heart failure
CPT/HCPCS: 93242; 93306

== ENCOUNTER → 2022-07-05 10:56 | Outpatient (BNVA) | payer MEDICARE, SELFPAY | PROVIDERS: PCP Physician Assistant; Visit Provider Internal Medicine | DX: I48.0 Paroxysmal atrial fibrillation (principal); Z79.01 Long term (current) use of anticoagulants; Z51.81 Encounter for therapeutic drug level monitoring | CPT/HCPCS: 85610; 99211 ==

== ENCOUNTER → 2022-08-02 10:53 | Outpatient (BNVA) | payer MEDICARE, SELFPAY | PROVIDERS: PCP Physician Assistant; Visit Provider Internal Medicine | DX: I48.0 Paroxysmal atrial fibrillation (principal); Z79.01 Long term (current) use of anticoagulants; Z51.81 Encounter for therapeutic drug level monitoring | CPT/HCPCS: 85610; 99211 ==

== ENCOUNTER → 2022-08-17 14:07 | Outpatient (BNVA) | payer MEDICARE, SELFPAY | PROVIDERS: PCP Physician Assistant; Referring Provider Physician Assistant; Visit Provider Internal Medicine | DX: I48.0 Paroxysmal atrial fibrillation (principal); I11.0 Hypertensive heart disease with heart failure; I50.32 Chronic diastolic (congestive) heart failure; I36.2 Nonrheumatic tricuspid (valve) stenosis with insufficiency; I27.20 Pulmonary hypertension, unspecified; R94.39 Abnormal result of other cardiovascular function study | CPT/HCPCS: 93005; 99212 ==

== ENCOUNTER 2022-08-28 14:44 | Outpatient (REF) | payer MEDICARE, SELFPAY ==
[2022-08-28 15:31] LABS: Hematocrit 43.7 % (37.0-47.0); Hemoglobin 14.6 g/dl (12.0-16.0); Mean Corpuscular HGB Conc 33.4 g/dl (31.0-35.0); Mean Corpuscular Hemoglobin 31.1 pg (27.0-33.0); Mean Platelet Volume 9.5 fL (9.4-12.3); Platelet Count 188 X10*3/uL (160-400); Red Cell Distribution Width 13.5 % (11.0-16.0)
[2022-08-28 15:32] LABS: INTERNATIONAL NORM RATIO 1.9 (0.9-1.1); Prothrombin Time 22.5 SEC (10.0-13.1)
[2022-08-28 16:07] LABS: Alanine Aminotransferase 21 U/L (0-31); Albumin Level 4.4 g/dL (3.5-5.0); Alkaline Phosphatase 75 U/L (39-117); Anion Gap 16 (12-20); Aspartate Amino Transferase 30 U/L (5-31); Bilirubin Total 1.3 mg/dL (0.0-1.0); Blood Urea Nitrogen 27 mg/dL (9-16); Carbon Dioxide 21 mmol/L (22-29); Chloride 104 mmol/L (96-108); Cholesterol 153 mg/dL; Estimated Glomerular Filt Rate 23; Glucose Random 135 mg/dL (60-115); HDL Cholesterol 60 mg/dL; LDL Cholesterol Calculated 72 mg/dl; Potassium 3.9 mmol/L (3.3-5.1); Sodium 137 mmol/L (135-145); Total Protein 7.3 g/dL (6.5-8.0); Triglycerides 108 mg/dL
[2022-08-28 16:23] LABS: TSH reflex Free T4 4.04 uIU/mL (0.32-4.0)
[2022-08-28 17:00] LABS: Free T4 (Free Thyroxine) 1.51 ng/dL (0.71-1.85)
== END 2022-08-28 14:45 | disposition home or self-care (01) ==
LOC: HO.LAB 14:44
PROVIDERS: PCP Physician Assistant; Visit Provider Nurse Practitioner Family
DX: Z01.812 Encounter for preprocedural laboratory examination (principal); Z13.29 Encounter for screening for other suspected endocrine disorder; Z13.0 Encounter for screening for diseases of the blood and blood-forming organs and certain disorders involving the immune mechanism; Z13.220 Encounter for screening for lipoid disorders; Z20.2 Contact with and (suspected) exposure to infections with a predominantly sexual mode of transmission; E78.00 Pure hypercholesterolemia, unspecified
CPT/HCPCS: 36415; 80053; 80061; 84439; 84443; 85027; 85610

== ENCOUNTER → 2022-08-30 10:43 | Outpatient (BNVA) | payer MEDICARE, SELFPAY | PROVIDERS: PCP Physician Assistant; Visit Provider Internal Medicine | DX: I48.0 Paroxysmal atrial fibrillation (principal); Z79.01 Long term (current) use of anticoagulants; Z51.81 Encounter for therapeutic drug level monitoring | CPT/HCPCS: 85610; 99211; 99212 ==

== ENCOUNTER → 2022-09-13 11:05 | Outpatient (BNVA) | payer MEDICARE, SELFPAY | PROVIDERS: PCP Physician Assistant; Visit Provider Internal Medicine | DX: I48.0 Paroxysmal atrial fibrillation (principal); Z79.01 Long term (current) use of anticoagulants; Z51.81 Encounter for therapeutic drug level monitoring | CPT/HCPCS: 85610; 99211 ==

== ENCOUNTER → 2022-09-29 10:45 | Outpatient (BNVA) | payer MEDICARE, SELFPAY | PROVIDERS: PCP Physician Assistant; Visit Provider Internal Medicine | DX: I48.0 Paroxysmal atrial fibrillation (principal); Z79.01 Long term (current) use of anticoagulants; Z51.81 Encounter for therapeutic drug level monitoring | CPT/HCPCS: 85610; 99211 ==

== ENCOUNTER 2022-10-03 08:43 | Outpatient (REF) | payer MEDICARE, SELFPAY ==
[2022-10-03 09:19] LABS: Hematocrit 43.2 % (37.0-47.0); Mean Corpuscular HGB Conc 32.4 g/dl (31.0-35.0); Mean Corpuscular Volume 95.8 fL (80.0-98.0); Mean Platelet Volume 9.7 fL (9.4-12.3); Platelet Count 187 X10*3/uL (160-400); Red Blood Count 4.51 X10*6/uL (4.20-5.50); Red Cell Distribution Width 13.9 % (11.0-16.0); White Blood Count 7.4 X10*3/uL (4.8-10.8)
[2022-10-03 10:01] LABS: Alanine Aminotransferase 18 U/L (0-31); Albumin Level 4.1 g/dL (3.5-5.0); Alkaline Phosphatase 87 U/L (39-117); Anion Gap 16 (12-20); Aspartate Amino Transferase 24 U/L (5-31); Bilirubin Total 0.6 mg/dL (0.0-1.0); Blood Urea Nitrogen 41 mg/dL (9-16); Calcium 10.4 mg/dL (8.4-10.2); Carbon Dioxide 21 mmol/L (22-29); Chloride 112 mmol/L (96-108); Cholesterol 144 mg/dL; Estimated Glomerular Filt Rate 25; Glucose Fasting 125 mg/dL (60-99); HDL Cholesterol 52 mg/dL; LDL Cholesterol Calculated 74 mg/dl; Potassium 4.7 mmol/L (3.3-5.1); Sodium 144 mmol/L (135-145); Total Protein 7.4 g/dL (6.5-8.0); Triglycerides 92 mg/dL
[2022-10-03 11:15] LABS: Free T4 (Free Thyroxine) 1.21 ng/dL (0.71-1.85)
== END 2022-10-03 08:44 | disposition home or self-care (01) ==
LOC: HO.LAB 08:43
PROVIDERS: PCP Physician Assistant; Visit Provider Physician Assistant
DX: N18.4 Chronic kidney disease, stage 4 (severe) (principal); I48.0 Paroxysmal atrial fibrillation
CPT/HCPCS: 36415; 80053; 80061; 84439; 84443; 85027

== ENCOUNTER → 2022-10-20 10:39 | Outpatient (BNVA) | payer MEDICARE, SELFPAY | PROVIDERS: PCP Physician Assistant; Visit Provider Internal Medicine | DX: I48.0 Paroxysmal atrial fibrillation (principal); Z79.01 Long term (current) use of anticoagulants; Z51.81 Encounter for therapeutic drug level monitoring | CPT/HCPCS: 85610; 99211 ==

== ENCOUNTER 2022-11-09 10:50 | Outpatient (AMB) | payer MEDICARE, SELFPAY ==
--- NOTE | 2022-11-09 10:59 | MHC.OFFVISCO ---
Intake Intake Visit Reasons: Anticoagulation Allergies No Known Allergies [No Known Allergies*] Allergy (Verified 11/09/22 10:55) Medication List - Last Reconciled 11/09/22 by Inocencia Raphael RN amiodarone 100 mg (1/2 x 200 mg) PO DAILY amlodipine 5 mg (1/2 x 10 mg) PO DAILY 90 days atorvastatin 20 mg PO DAILY calcium carbonate (Calcium) 1,200 mg PO DAILY erythromycin 0 mg ophthalmic (eye) metoprolol succinate ER 50 mg PO DAILY omeprazole 20 mg PO DAILY PRN raloxifene 60 mg PO DAILY tramadol 50 mg PO BID PRN warfarin 2 mg See Protocol PO DAILY Nursing Note INR: 2.8- in therapeutic range Medications and supplements reviewed No changes in health, diet, medications, or supplements, Denies any signs and symptoms of bleeding or bruising or clotting. Bleeding, bruising, clotting discussed Nutritional guidance given Dose: 4mg x 2, 2mg x 5 pt states was taking 4mg tue and thur, enc to do mon thur F/U INR: pt req 4 weeks, agreed on 3 weeks earliest Patient verbalizes understanding of instructions given Anti-Coag Initial Assessment Social Hx Patient Tobacco Use Status: Never used Tobacco alcohol intake: never Coding Level of Care Code Est Patient Level 1 Diagnoses Current use of anticoagulant therapy Z79.01 Results AMB INR Fingerstick AMB INR Fingerstick 2.8 Last Edit by Inocencia Raphael RN on 11/09/22 11:01 Assessment & Plan Assessment & Plan (1) Current use of anticoagulant therapy: Code(s): Z79.01 - [facility] (current) use of anticoagulants Category: Medical
[2022-11-10 08:44] LABS: Prothrombin Time Whole Bld POC 33.7 sec (11.1-13.5); ~PT, ~INR - Anti Coag Clinic 2.8 (0.9-1.1)
== END 2022-11-09 11:07 | disposition home or self-care (01) ==
LOC: HO.ACS 10:50
PROVIDERS: PCP Physician Assistant; Visit Provider Internal Medicine
DX: Z79.01 Long term (current) use of anticoagulants (principal)

== ENCOUNTER → 2022-11-09 10:50 | Outpatient (BNVA) | payer MEDICARE, SELFPAY | PROVIDERS: PCP Physician Assistant; Visit Provider Internal Medicine | DX: I48.0 Paroxysmal atrial fibrillation (principal); Z79.01 Long term (current) use of anticoagulants; Z51.81 Encounter for therapeutic drug level monitoring | CPT/HCPCS: 85610; 99211 ==

== ENCOUNTER 2022-11-16 10:45 | Outpatient (REF) | payer MEDICARE, SELFPAY ==
[2022-11-16 12:10] LABS: Hematocrit 42.2 % (37.0-47.0); Hemoglobin 13.9 g/dl (12.0-16.0); Mean Corpuscular HGB Conc 32.9 g/dl (31.0-35.0); Mean Corpuscular Hemoglobin 31.3 pg (27.0-33.0); Mean Platelet Volume 9.8 fL (9.4-12.3); Platelet Count 188 X10*3/uL (160-400); Red Blood Count 4.44 X10*6/uL (4.20-5.50); Red Cell Distribution Width 13.6 % (11.0-16.0); White Blood Count 8.3 X10*3/uL (4.8-10.8)
[2022-11-16 12:45] LABS: Anion Gap 14 (12-20); Blood Urea Nitrogen 36 mg/dL (9-16); Calcium 9.8 mg/dL (8.4-10.2); Carbon Dioxide 19 mmol/L (22-29); Chloride 110 mmol/L (96-108); Estimated Glomerular Filt Rate 32; Glucose Random 115 mg/dL (60-115); Potassium 4.1 mmol/L (3.3-5.1); Sodium 139 mmol/L (135-145)
== END 2022-11-16 10:46 | disposition home or self-care (01) ==
LOC: HO.LAB 10:45
PROVIDERS: PCP Physician Assistant; Visit Provider Internal Medicine Hypertension Specialist
DX: N18.4 Chronic kidney disease, stage 4 (severe) (principal)
CPT/HCPCS: 36415; 80048; 85027

== ENCOUNTER 2022-11-29 10:50 | Outpatient (AMB) | payer MEDICARE, SELFPAY ==
--- NOTE | 2022-11-29 10:59 | MHC.OFFVISCO ---
Intake Intake Visit Reasons: Anticoagulation Allergies No Known Allergies [No Known Allergies*] Allergy (Verified 11/29/22 10:52) Medication List - Last Reconciled 11/29/22 by Inocencia Raphael RN amiodarone 100 mg (1/2 x 200 mg) PO DAILY amlodipine 5 mg (1/2 x 10 mg) PO DAILY 90 days atorvastatin 20 mg PO DAILY calcium carbonate (Calcium) 1,200 mg PO DAILY metoprolol succinate ER 50 mg PO DAILY omeprazole 20 mg PO DAILY PRN raloxifene 60 mg PO DAILY tramadol 50 mg PO BID PRN warfarin 2 mg See Protocol PO DAILY Nursing Note INR 3.6-? out of therapeutic range Medications and supplements reviewed Patient status: pt states 'slowing down', amb with cane Medications or supplements: no changes Diet: appetite is good Denies any signs and symptoms of bleeding or clotting or unusual bruising Bleeding, bruising, clotting discussed Nutritional guidance given: eat greens for 2 days, no reds for 2 days Dose: [] F/U INR Date : 2 weeks? Patient verbalizing understanding of instructions given. Anti-Coag Initial Assessment Social Hx Patient Tobacco Use Status: Never used Tobacco alcohol intake: never Coding Level of Care Code Est Patient Level 1 Diagnoses Current use of anticoagulant therapy Z79.01 Results AMB INR Fingerstick AMB INR Fingerstick 3.6 Last Edit by Inocencia Raphael RN on 11/29/22 11:01 Assessment & Plan Assessment & Plan (1) Current use of anticoagulant therapy: Code(s): Z79.01 - long term acute care registered nurse (current) use of anticoagulants Category: Medical Medications: Refilled amiodarone 100 mg (1/2 x 200 mg) PO DAILY 45 tabs 4RF I48.91 - Unspecified atrial fibrillation
[2022-11-29 11:08] LABS: Prothrombin Time Whole Bld POC 43.2 sec (11.1-13.5); ~PT, ~INR - Anti Coag Clinic 3.6 (0.9-1.1)
== END 2022-11-29 11:07 | disposition home or self-care (01) ==
LOC: HO.ACS 10:50
PROVIDERS: PCP Physician Assistant; Visit Provider Internal Medicine
DX: Z79.01 Long term (current) use of anticoagulants (principal)

== ENCOUNTER → 2022-11-29 10:50 | Outpatient (BNVA) | payer MEDICARE, SELFPAY | PROVIDERS: PCP Physician Assistant; Visit Provider Internal Medicine | DX: I48.0 Paroxysmal atrial fibrillation (principal); Z79.01 Long term (current) use of anticoagulants; Z51.81 Encounter for therapeutic drug level monitoring | CPT/HCPCS: 85610; 99211 ==

== ENCOUNTER 2022-12-13 10:49 | Outpatient (AMB) | payer MEDICARE, SELFPAY ==
[2022-12-13 11:08] LABS: Prothrombin Time Whole Bld POC 29.7 sec (11.1-13.5); ~PT, ~INR - Anti Coag Clinic 2.5 (0.9-1.1)
--- NOTE | 2022-12-13 11:12 | MHC.OFFVISCO ---
Intake Intake Visit Reasons: Anticoagulation Allergies No Known Allergies [No Known Allergies*] Allergy (Verified 12/13/22 11:04) Medication List - Last Reconciled 12/13/22 by Isamar Bowles RN amiodarone 100 mg (1/2 x 200 mg) PO DAILY amlodipine 5 mg (1/2 x 10 mg) PO DAILY 90 days atorvastatin 20 mg PO DAILY calcium carbonate (Calcium) 1,200 mg PO DAILY metoprolol succinate ER 50 mg PO DAILY omeprazole 20 mg PO DAILY PRN raloxifene 60 mg PO DAILY tramadol 50 mg PO BID PRN warfarin 2 mg See Protocol PO DAILY Nursing Note NO CP,SOB,DIET/MED CHANGES,FALLS OR SX OF BLEEDING. CONTINUE PRESENT DOSE AND FOLLOW-UP IN 3 WEEKS,. GOOD UNDERSTANDING OF DOSING INSTR. Anti-Coag Initial Assessment Social Hx Patient Tobacco Use Status: Never used Tobacco alcohol intake: never Coding Level of Care Code Est Patient Level 1 Diagnoses Current use of anticoagulant therapy Z79.01 Results AMB INR Fingerstick AMB INR Fingerstick 2.5 Last Edit by Isamar Bowles RN on 12/13/22 11:10 Assessment & Plan Assessment & Plan (1) Current use of anticoagulant therapy: Code(s): Z79.01 - skilled nursing (current) use of anticoagulants Category: Medical
== END 2022-12-13 11:14 | disposition home or self-care (01) ==
LOC: HO.ACS 10:49
PROVIDERS: PCP Physician Assistant; Visit Provider Internal Medicine
DX: Z79.01 Long term (current) use of anticoagulants (principal)

== ENCOUNTER → 2022-12-13 10:49 | Outpatient (BNVA) | payer MEDICARE, SELFPAY | PROVIDERS: PCP Physician Assistant; Visit Provider Internal Medicine | DX: I48.0 Paroxysmal atrial fibrillation (principal); Z79.01 Long term (current) use of anticoagulants; Z51.81 Encounter for therapeutic drug level monitoring | CPT/HCPCS: 85610; 99211 ==

== ENCOUNTER 2022-12-28 13:17 | Outpatient (AMB) | payer MEDICARE, SELFPAY ==
[2022-12-28 13:26] VITALS: BP 126/74; PULSE 76; RESP 15; O2SAT 95; BMI 18.8
--- NOTE | 2022-12-28 13:26 | A.OFFPC_ITS ---
Vital Signs 12/28/22 13:26 Height 5 ft 5 in Weight 113 lb BMI 18.8 BP 126/74 Blood Pressure Location Lt brachial Position Sitting Respiration 15 Pulse 76 Pulse Source Pulse Oximeter Pulse Oximetry (%) 95 Oxygen Delivery Method Room Air Intake Visit Reasons: PE Intake Note: Patient is here today for a physical. Accompanied by: Baby brother-Debbie Allergies No Known Allergies [No Known Allergies*] Allergy (Verified 12/28/22 13:48) Medication List - Last Reconciled 12/28/22 by Ruben Dick PA-C amiodarone 100 mg (1/2 x 200 mg) PO DAILY amlodipine 5 mg (1/2 x 10 mg) PO DAILY 90 days atorvastatin 20 mg PO DAILY calcium carbonate (Calcium) 1,200 mg PO DAILY metoprolol succinate ER 50 mg PO DAILY omeprazole 20 mg PO DAILY PRN raloxifene 60 mg PO DAILY warfarin 2 mg See Protocol PO DAILY Tobacco use date assessed: 08/28/22 Fall risk assessment: 1 Fall in past year Last assessed Fall Risk: 12/28/22 Dental Screening Dental Screen Date: 12/28/22 HPI PE HPI Details Patient is an 87-year-old female here today for an annual physical.? Patient has a past medical history significant for paroxysmal AFib, CKD-4, malignant melanoma, history of breast cancer .. Paroxysmal AFib:? Patient is followed by Cardiology, denies any overt signs of bleeding.? Does report having upper extremity rash over the last several weeks that has been itchy in nature. Recently EKG with Cardiology unremarkable. She continues on rhythm control with amiodarone. She feels she has some dizziness and unsteadiness on her feet due to the medication. Also reports has rhinitis that she has not used any vurj-udb-dniidte nasal sprays or antihistamines for. . CKD stage 4:? Patient now followed by Nephrology. most recent creatinine at 1.95.? She does have microalbuminuria.? She does report she has a hard time keeping hydrated with free fluids. Recently found to have kidney cysts. Otherwise denies any chest discomfort, palpitations, shortness of breath. . Breast cancer:? Continues to follow with oncology. Her breast cancer has been in remission for many years now. Vaccines: Up-to-date with pneumonia vac, up-to-date with tetanus up-to-date with COVID vaccine. Laboratory Tests 10/03/22 11/16/22 11/16/22 08:56 11:11 11:11 RBC 4.44 Hgb 13.9 Creatinine 1.89 H 1.53 H [facility] Medical History (Updated 12/28/22 @ 14:20 by Ruben Dick PA-C) PAF (paroxysmal atrial fibrillation) Essential hypertension Pulmonary hypertension Non-rheumatic tricuspid stenosis with insufficiency Abnormal myocardial perfusion study Chronic heart failure with preserved ejection fraction (HFpEF) Persistent atrial fibrillation Hiatal hernia Diverticulitis Gastro-esophageal reflux disease without esophagitis High cholesterol Hypertension Atrial fibrillation Surgical History S/P total abdominal hysterectomy History of cardioversion H/O mastectomy Family History Father Heart disease Mother Colon cancer Social History Household Members: None Housing: Apartment Are you a primary urgent care technician to a significant other at home: No Do you presently have visiting nurse or other home services: No Alcohol intake: never Patient Tobacco Use Status: Never used Tobacco e-Cigarette/Vaping Use: Never Used Second Hand Smoke Exposure: No Advance Directives Date on File: 01/16/20 service: No Current occupational status: retired Cognitive needs: No Hearing needs: No Vision needs: No Questionnaire Thrive Questionnaire Date Thrive assessed: 08/28/22 ANGEL-7 AMB Questionnaire ANGEL-7 Date ANGEL - 7 assessed: 08/28/22 Source: Developed by Drs. Bandar Lopez, Shell Sahni, Mohinder Tellez and colleagues, with an educational hiram from [employer]. Review of Systems Const Denies body aches, Denies chills, Denies excessive sweating, Denies fatigue, Denies fever(s) and Denies headache(s) Eyes Denies blurry vision ENT Denies dysphagia, Denies vertigo, Reports dizziness, Denies headache(s), Denies hearing loss and Denies tinnitus Card Denies chest pain, Denies chest pain with activity, Denies syncope, Denies irregular heart rhythm and Denies dyspnea Resp Denies chest congestion, Denies cough, Denies hemoptysis, Denies dyspnea and Denies wheezing GI Denies abdominal pain, Denies melena, Denies hematochezia, Denies coffee ground emesis, Denies dysphagia, Denies diarrhea, Denies nausea and Denies vomiting Denies urinary frequency, Denies dysuria, Denies urinary hesitancy and Denies urinary urgency Musc Denies arthralgias, Denies limited range of motion, Denies muscle cramps and Denies muscle weakness Skin/Breast Denies rash and Denies skin ulcer Neuro Denies Abnormal speech present, Denies confusion, Denies vertigo, Reports dizziness, Denies syncope, Denies headache(s), Denies memory loss and Denies seizure-like activity Psych Denies anxiety, Denies confusion, Denies depression, Denies memory loss, Denies panic attacks and Denies paranoia Endo Denies excessive sweating, Denies fatigue, Denies flushing, Denies polydipsia and Denies polyuria Aller/Immun Denies wheezing Physical exam (Primary Care) Vital Signs: Last Vital Signs Pulse 76 12/28/22 13:26 Resp 15 12/28/22 13:26 BP 126/74 12/28/22 13:26 Pulse Ox 95 12/28/22 13:26 Oxygen Delivery Method Room Air 12/28/22 13:26 BMI result Body Mass Index 18.8 BMI Assessment/Plan discussion: Low Tobacco/Smoking Status: Tobacco use Status Tobacco use date assessed 08/28/22 12/28/22 13:31 Patient Tobacco Use Status Never used Tobacco 12/28/22 13:31 e-Cigarette/Vaping Use Never Used 12/28/22 13:31 Thrive Assessment: Date of Thrive Assessment Date Thrive assessed 08/28/22 12/28/22 13:31 Const Other: weight loss noted General: cooperative, comfortable, no acute distress, alert and awake; No confusion Orientation/consciousness: oriented to person, oriented to place, patient oriented x3 and No confusion HENMT Head: Yes normocephalic Ears: external ears normal and TM's normal bilaterally Face and sinus: No sinus tenderness Mouth: Normal oral and palatal mucosa present and tongue normal Teeth and gingiva: dentition normal and gingiva normal Throat: Yes posterior oropharynx normal, Yes tonsils normal and Yes uvula midline Eyes Conjunctivae: conjunctivae normal Sclerae: sclerae normal Pupils: Equal, round and reactive pupils present EOM: EOMs intact bilaterally Direct Ophthalmoscopy: No no photophobia Neck Neck: Yes no lymphadenopathy, No tender and Yes no JVD Thyroid: Thyroid normal Carotids: no bruits Chest Chest palpation & inspection: no tenderness Resp Effort & Inspection: normal respiratory effort, no audible wheezes, not labored and no stridor Auscultation: no crackles, no rales, no rhonchi and no wheezes Cardio Jugular venous distension: no JVD Rate: regular rate, not bradycardic and not tachycardic Rhythm: regular rhythm Bruits: no carotid bruits Peripheral pulses: Peripheral pulses 2+ throughout GI Inspection: Yes normal to inspection, No abdominal wall ecchymosis and No visible herniation Palpation (GI): Soft to palpation, nontender, no guarding, not rigid and No hepatosplenomegaly present Auscultation: normoactive bowel sounds General: Yes no CVA tenderness Back/Spine/Pelvis Back: no CVA tenderness and No back tenderness Cervical Spine: cervical ROM normal Thoracic/Lumbar Spine: thoracic and lumbar spine normal to inspection, straight leg raise negative bilaterally, No thoraco-lumbar ROM limited and No lumbar spinal tenderness Skin Lesions: no lesions Rashes: no rashes Wounds: no wounds Neuro General: oriented to person, oriented to place, patient oriented x3, CN's II-XI intact bilaterally and No confusion Cranial nerves: Yes Equal, round and reactive pupils present and Yes Normal accommodation reflex present Cognition (Neuro): normal cognition Speech: No Abnormal speech present Gait exam (Neuro): Normal gait present Motor exam (neuro): 5/5 motor strength present throughout Extrem Right upper extremity: full ROM; no cyanosis Left upper extremity: full ROM; no cyanosis Right lower extremity: no edema Left lower extremity: no edema Psych Appearance: grossly normal Mental Status: mental status grossly normal Affect: normal affect Attitude: cooperative Thought process: Normal thought process present Assessment and Plan Assessment & Plan (1) Annual physical exam: Code(s): Z00.00 - Encounter for general adult medical examination without abnormal findings (2) PAF (paroxysmal atrial fibrillation): Code(s): I48.0 - Paroxysmal atrial fibrillation Plan: AFib has been controlled with rhythm and rate control. Continues on warfarin and follow still anticoagulation clinic. At our in our is have been fairly stable. She does report she she does not like to take amiodarone as she feels it is causing some dizziness. Of note did have a fall with a left forearm laceration. (3) Breast cancer: Code(s): C50.919 - Malignant neoplasm of unspecified site of unspecified female breast Qualifiers: Breast location: unspecified site of breast Patient sex: female Laterality: right (4) Chronic heart failure with preserved ejection fraction (HFpEF): Code(s): I50.32 - Chronic diastolic (congestive) heart failure Plan: Heart failure has been well controlled with controlling her AFib. Continues to follow cardiology (5) Weight loss: Code(s): R63.4 - Abnormal weight loss Plan: Has noted weight loss over the last year and is concerned about this. She denies having low appetite. She does get Meals on wheels from [employer] [facility]. Advised on increasing protein with supplementation to help gain weight. Will reach out to her oncologist about her weight loss. (6) CKD (chronic kidney disease) stage 4, GFR 15-29 ml/min: Code(s): N18.4 - Chronic kidney disease, stage 4 (severe) Plan: Patient's most recent creatinine has improved. Will continue to follow. Will continue to refrain from nephrotoxins medication. Orders: Orders Lipid Panel Today E78.00 - Pure hypercholesterolemia, unspecified TSH reflex Free T4 Today I48.0 - Paroxysmal atrial fibrillation Comprehensive [place]. Panel Fast Today N18.4 - Chronic kidney disease, stage 4 (severe) Complete Blood Count no Diff Today N18.4 - Chronic kidney disease, stage 4 (severe) Coding Level of Care Code Est Pt Prev Care >65y(88082) Diagnoses Annual physical exam Z00.00 PAF (paroxysmal atrial fibrillation) I48.0 Breast cancer C50.919 Breast location: unspecified site of breast Patient sex: female Laterality: right Chronic heart failure with preserved ejection fraction (HFpEF) I50.32 Weight loss R63.4 CKD (chronic kidney disease) stage 4, GFR 15-29 ml/min N18.4
== END 2022-12-28 14:16 | disposition home or self-care (01) ==
PROVIDERS: PCP Physician Assistant; Visit Provider Physician Assistant
DX: Z00.00 Encounter for general adult medical examination without abnormal findings (principal); I50.32 Chronic diastolic (congestive) heart failure; N18.4 Chronic kidney disease, stage 4 (severe); I48.0 Paroxysmal atrial fibrillation; C50.919 Malignant neoplasm of unspecified site of unspecified female breast; R63.4 Abnormal weight loss
CPT/HCPCS: 99397

== ENCOUNTER 2023-01-03 10:53 | Outpatient (AMB) | payer MEDICARE, SELFPAY ==
[2023-01-03 10:58] LABS: Prothrombin Time Whole Bld POC 36.7 sec (11.1-13.5); ~PT, ~INR - Anti Coag Clinic 3.1 (0.9-1.1)
--- NOTE | 2023-01-03 10:59 | MHC.OFFVISCO ---
Intake Intake Visit Reasons: Anticoagulation Allergies No Known Allergies [No Known Allergies*] Allergy (Verified 01/03/23 10:54) Medication List - Last Reconciled 01/03/23 by Anita Mendez RN amiodarone 100 mg (1/2 x 200 mg) PO DAILY amlodipine 5 mg PO DAILY atorvastatin 20 mg PO DAILY calcium carbonate (Calcium) 1,200 mg PO DAILY metoprolol succinate ER 50 mg PO DAILY omeprazole 20 mg PO DAILY PRN raloxifene 60 mg PO DAILY warfarin 2 mg See Protocol PO DAILY Nursing Note INR: 3.1 ALOMST in therapeutic range Medications and supplements reviewed No changes in health, diet, medications, or supplements, MAY NOT HAVE HAD ENOUGH [place], JUST CELEBRATED BDAY EATING OUT A FEW TIMES Denies any signs and symptoms of bleeding or bruising or clotting. Bleeding, bruising, clotting discussed Nutritional guidance given Dose: KEEP SAME 4MG X 2 DAYS/ 2MG X 5 DAYS F/U INR: 1 MONTH Patient verbalizes understanding of instructions given Anti-Coag Initial Assessment Social Hx Patient Tobacco Use Status: Never used Tobacco alcohol intake: never Coding Level of Care Code Est Patient Level 1 Diagnoses Current use of anticoagulant therapy Z79.01 Results AMB INR Fingerstick AMB INR Fingerstick 3.1 Last Edit by Anita Mendez RN on 01/03/23 11:00 manual entry slow interfacing Assessment & Plan Assessment & Plan (1) Current use of anticoagulant therapy: Code(s): Z79.01 - ad terminal makeup operator (current) use of anticoagulants Category: Medical
== END 2023-01-03 11:04 | disposition home or self-care (01) ==
LOC: HO.ACS 10:53
PROVIDERS: PCP Physician Assistant; Visit Provider Internal Medicine
DX: Z79.01 Long term (current) use of anticoagulants (principal)

== ENCOUNTER → 2023-01-03 10:53 | Outpatient (BNVA) | payer MEDICARE, SELFPAY | PROVIDERS: PCP Physician Assistant; Visit Provider Internal Medicine | DX: I48.0 Paroxysmal atrial fibrillation (principal); Z79.01 Long term (current) use of anticoagulants; Z51.81 Encounter for therapeutic drug level monitoring | CPT/HCPCS: 85610; 99211 ==

== ENCOUNTER 2023-01-31 10:48 | Outpatient (AMB) | payer MEDICARE, SELFPAY ==
--- NOTE | 2023-01-31 10:55 | MHC.OFFVISCO ---
Intake Intake Visit Reasons: Anticoagulation Allergies No Known Allergies [No Known Allergies*] Allergy (Verified 01/31/23 10:50) Medication List - Last Reconciled 01/31/23 by Anita Mendez RN amiodarone 100 mg (1/2 x 200 mg) PO DAILY amlodipine 5 mg PO DAILY atorvastatin 20 mg PO DAILY calcium carbonate (Calcium) 1,200 mg PO DAILY metoprolol succinate ER 50 mg PO DAILY omeprazole 20 mg PO DAILY PRN raloxifene 60 mg PO DAILY warfarin 2 mg See Protocol PO DAILY Nursing Note INR: 2.7 in therapeutic range Medications and supplements reviewed No changes in medications, or supplements, she has had weight loss- to have ultra sound tomorrow may start ensure due to weight loss - she may have it only a few days / wk it was explained that it could lower her INR- and to decrease weekly greens when she has it and or eat more orange and reds to help raise INR She may have another eye porcedure right eye still not opneing enough after she had lower lid reconstructed- pt will call if going to have another procedure Denies any signs and symptoms of bleeding or bruising or clotting. Bleeding, bruising, clotting discussed Nutritional guidance given Dose: keep same dose 4mg x 2 days/ 2mg x 5 days F/U INR: 4 weeks Patient verbalizes understanding of instructions given Anti-Coag Initial Assessment Social Hx Patient Tobacco Use Status: Never used Tobacco alcohol intake: never Coding Level of Care Code Est Patient Level 1 Diagnoses Current use of anticoagulant therapy Z79.01 Assessment & Plan Assessment & Plan (1) Current use of anticoagulant therapy: Code(s): Z79.01 - shelter (current) use of anticoagulants Category: Medical
[2023-01-31 10:57] LABS: Prothrombin Time Whole Bld POC 31.9 sec (11.1-13.5); ~PT, ~INR - Anti Coag Clinic 2.7 (0.9-1.1)
== END 2023-01-31 11:11 | disposition home or self-care (01) ==
LOC: HO.ACS 10:48
PROVIDERS: PCP Physician Assistant; Visit Provider Internal Medicine
DX: Z79.01 Long term (current) use of anticoagulants (principal)

== ENCOUNTER → 2023-01-31 10:48 | Outpatient (BNVA) | payer MEDICARE, SELFPAY | PROVIDERS: PCP Physician Assistant; Visit Provider Internal Medicine | DX: I48.0 Paroxysmal atrial fibrillation (principal); Z79.01 Long term (current) use of anticoagulants; Z51.81 Encounter for therapeutic drug level monitoring | CPT/HCPCS: 85610; 99211 ==

== ENCOUNTER 2023-02-09 08:22 | Outpatient (REF) | payer MEDICARE, SELFPAY ==
--- NOTE | ~2023-02-09 | US_ITS ---
EXAMINATION: US ABDOMEN COMPLETE CLINICAL INFORMATION: Complex left renal cyst. Follow up on the cyst and look at the pancreas for any masses. COMPARISON: MRI abdomen 10/28/2021. Renal ultrasound 10/07/2021. CT abdomen and pelvis 01/15/2020. TECHNIQUE: Real-time imaging of the abdominal viscera. Limited visualization due to bowel gas. FINDINGS: PANCREAS: Limited visualization of pancreatic tail and head. Imaged portion of pancreatic body is unremarkable. ABDOMINAL AORTA: Nonaneurysmal. Atherosclerosis. INFERIOR VENA CAVA: Visualized portions are normal. LIVER: Increased hepatic parenchymal heterogeneity and echogenicity which could be associated with hepatic steatosis or hepatocellular disease and substantially limits visualization. GALLBLADDER: A 1.6 x 1.0 x 1.5 cm gallstone. No gallbladder wall thickening. COMMON BILE DUCT: Normal in caliber measuring 0.3 cm in diameter. RIGHT KIDNEY: Right renal upper pole 2.0 cm and 1.2 cm cysts with benign features. Right lower pole 1.6 x 1.4 x 1.4 cm complex cyst with septations, previously 1.4 x 1.2 x 1.3 cm on 10/07/2021. There is no indication for follow up imaging. Right mka-ob-pstgi pole 2.3 x 1.9 x 1.8 cm complex cyst with septations. Limited visualization. No hydronephrosis or renal calculi. The kidney measures 8.9 cm in maximum dimension. LEFT KIDNEY: Left renal lower pole lateral 8.6 x 6.7 x 6.7 cm complex lesion with diffuse heterogeneous internal echoes previously measured 8.3 x 6.5 x 7.4 cm on 10/07/2021. No hydronephrosis or renal calculi. Limited visualization. The kidney measures 11.0 cm in maximum dimension. SPLEEN: Unremarkable in size. The spleen measures 10.8 cm in maximum dimension. FREE FLUID: None. US/US abdomen complete IMPRESSION: 1. Increased hepatic parenchymal heterogeneity and echogenicity which could be associated with hepatic steatosis or hepatocellular disease and substantially limits visualization. 2. Cholelithiasis. 3. Left renal lower pole 8.6 cm complex cyst redemonstrated.
[2023-02-09 10:58] LABS: Hematocrit 43.9 % (37.0-47.0); Hemoglobin 14.3 g/dl (12.0-16.0); Mean Corpuscular HGB Conc 32.6 g/dl (31.0-35.0); Mean Corpuscular Hemoglobin 30.8 pg (27.0-33.0); Mean Corpuscular Volume 94.4 fL (80.0-98.0); Mean Platelet Volume 9.7 fL (9.4-12.3); Platelet Count 183 X10*3/uL (160-400); Red Blood Count 4.65 X10*6/uL (4.20-5.50); Red Cell Distribution Width 14.1 % (11.0-16.0); White Blood Count 6.3 X10*3/uL (4.8-10.8)
[2023-02-09 11:50] LABS: Alanine Aminotransferase 21 U/L (0-31); Albumin Level 4.3 g/dL (3.5-5.0); Alkaline Phosphatase 77 U/L (39-117); Anion Gap 13 (12-20); Aspartate Amino Transferase 29 U/L (5-31); Bilirubin Total 0.7 mg/dL (0.0-1.0); Blood Urea Nitrogen 29 mg/dL (9-16); Calcium 10.2 mg/dL (8.4-10.2); Carbon Dioxide 22 mmol/L (22-29); Chloride 109 mmol/L (96-108); Cholesterol 146 mg/dL (<200); Estimated Glomerular Filt Rate 32; Glucose Fasting 109 mg/dL (60-99); HDL Cholesterol 61 mg/dL (>40); LDL Cholesterol Calculated 67 mg/dL (<100); Potassium 4.3 mmol/L (3.3-5.1); Sodium 140 mmol/L (135-145); Total Protein 7.5 g/dL (6.5-8.0); Triglycerides 94 mg/dL (<150)
[2023-02-09 11:57] LABS: TSH reflex Free T4 2.52 uIU/mL (0.32-4.0)
== END 2023-02-09 08:23 | disposition home or self-care (01) ==
LOC: HO.US 08:22
PROVIDERS: PCP Physician Assistant; Referring Provider Physician Assistant; Visit Provider Internal Medicine Medical Oncology
DX: R63.4 Abnormal weight loss (principal); E78.00 Pure hypercholesterolemia, unspecified; N18.4 Chronic kidney disease, stage 4 (severe); I48.0 Paroxysmal atrial fibrillation
CPT/HCPCS: 36415; 76700; 80053; 80061; 84443; 85027

== ENCOUNTER → 2023-02-28 11:06 | Outpatient (BNVA) | payer MEDICARE, SELFPAY | PROVIDERS: PCP Physician Assistant; Visit Provider Internal Medicine | DX: I48.0 Paroxysmal atrial fibrillation (principal); Z79.01 Long term (current) use of anticoagulants; Z51.81 Encounter for therapeutic drug level monitoring | CPT/HCPCS: 85610; 99211 ==

== ENCOUNTER 2023-03-06 12:38 | Outpatient (REF) | payer MEDICARE, SELFPAY ==
--- NOTE | ~2023-03-06 | MM_ITS ---
EXAMINATION: MM SCREENING DIGITAL BREAST TOMOSYNTHESIS, BILATERAL CLINICAL INFORMATION: Screening. Asymptomatic. Remote left mastectomy, 1992. Right breast cancer postlumpectomy, 2012. Due for yearly. COMPARISON: Mammography: 03/03/2022, 02/25/2021, 02/20/2020, 02/14/2019 TECHNIQUE: Digital right breast tomosynthesis is performed in both the craniocaudal and mediolateral oblique views along with computer-aided detection (CAD). Synthesized 2D images are generated from the tomosynthesis. FINDINGS: There are scattered areas of fibroglandular density (ACR BI-RADS breast composition Category b). There are no significant masses, abnormal calcifications, or other abnormalities. MM/MM tomosynthesis screening RT IMPRESSION: No mammographic evidence of malignancy. ASSESSMENT: BI-RADS BI-RADS 1 - Negative RECOMMENDATION: Routine annual mammography screening. 1 year F/U This examination should not preclude the clinical evaluation of a suspicious palpable abnormality. This patient's information was entered into a reminder system with a target due date for their next mammogram.
--- NOTE | ~2023-03-06 | MM_ITS ---
EXAMINATION: BONE DENSITOMETRY CLINICAL INDICATION: Osteoporosis. COMPARISON: Previous BD dated 12/06/2018 and baseline BD dated 03/21/2010. TECHNIQUE: Using a [employer] DXA System (software version: 13.1) manufactured by [employer], dual-energy x-ray absorptiometry was performed of the lumbar spine and left hip. The images are of good technical quality. Summary results are attached. FINDINGS: LEFT FEMUR, NECK: Current: BMD 0.705 g/cm2, Z-score 0.4, T-score -2.4, osteopenia. Prior: BMD 0.622 g/cm2. Baseline: BMD 0.788 g/cm2. LEFT FEMUR, TOTAL: Current: BMD 0.696 g/cm2, Z-score 0.2, T-score -2.5, osteoporosis, 5.9% increase from previous, 19.2% decrease from baseline (<5% change is not significant). Prior: BMD 0.657 g/cm2. Baseline: BMD 0.861 g/cm2. AP SPINE L1-L4: Current: BMD 0.818 g/cm2, Z-score -0.6, T-score -3.0, osteoporosis, 2.4% decrease from previous, 14.1% decrease from baseline (<5% change is not significant). Prior: BMD 0.838 g/cm2. Baseline: BMD 0.952 g/cm2. IDENTIFIED RISK FACTORS: Osteoporosis, recurrent falls, height loss, menopause, hysterectomy, bilateral oophorectomy. HISTORY OF FRACTURE: None listed. MEDICATIONS: Calcium supplements or multivitamin, vitamin D. MM/XR DEXA axial skeleton IMPRESSION: 1. DIAGNOSIS: Osteoporosis based on the lowest T-score value of -3.0 in the lumbar spine applying World Health Organization criteria. 2. 10-YEAR FRACTURE RISK PREDICTION, FRAX: According to the guidelines, FRAX calculation should only be performed on patients in the osteopenia bone density category. Therefore, FRAX was not performed on this patient. 3. Treatment Recommendations: NOF guidelines recommend consideration for treatment in postmenopausal women and men age 50 and older presenting with the following: -A hip or vertebral (clinical or morphometric) fracture. -T-score less than or equal to -2.5 at the femoral neck or spine after appropriate evaluation to exclude secondary causes. -Low bone mass at the hip or spine and a 10-year fracture probability by FRAX of greater than or equal to 3% for hip fracture or greater than or equal to 20% for major osteoporotic fracture based on the [place] adapted WHO algorithm. 4. Other Recommendations: All treatment decisions require clinical judgment and consideration of individual patient factors, including patient preferences, comorbidities, previous drug use, risk factors not captured in the FRAX model (e.g. frailty, falls, vitamin D deficiency, increased bone turnover, interval significant decline in bone density) and possible under or overestimation of fracture risk by FRAX. Additional medical evaluation for secondary cause of low bone mineral density may be appropriate. FUTURE SCAN RECOMMENDATION: People with diagnosed cases of osteoporosis or at high risk for fracture should have regular bone mineral density tests. For patients eligible for Medicare, routine testing is allowed once every 2 years. The testing frequency can be increased to one year for patients who have rapidly progressing disease, those who are receiving or discontinuing medical therapy to restore bone mass, or have additional risk factors.
== END 2023-03-06 12:39 | disposition home or self-care (01) ==
LOC: HO.MAMMO 12:38
PROVIDERS: PCP Physician Assistant; Visit Provider Internal Medicine Medical Oncology
DX: Z12.31 Encounter for screening mammogram for malignant neoplasm of breast (principal); Z13.820 Encounter for screening for osteoporosis; Z78.0 Asymptomatic menopausal state; M81.0 Age-related osteoporosis without current pathological fracture
CPT/HCPCS: 77063; 77067; 77080

== ENCOUNTER → 2023-03-06 13:30 | Outpatient (BNV) | payer MEDICARE, SELFPAY | PROVIDERS: PCP Physician Assistant; Visit Provider Radiology Diagnostic Radiology | DX: Z12.31 Encounter for screening mammogram for malignant neoplasm of breast (principal) | CPT/HCPCS: 77063; 77067 ==

== ENCOUNTER 2023-03-28 11:21 | Outpatient (AMB) | payer MEDICARE, SELFPAY ==
--- NOTE | 2023-03-28 11:25 | MHC.OFFVISCO ---
Intake Intake Visit Reasons: Anticoagulation Allergies No Known Allergies [No Known Allergies*] Allergy (Verified 03/28/23 11:22) Medication List - Last Reconciled 03/28/23 by Inocencia Raphael RN amiodarone 100 mg (1/2 x 200 mg) PO DAILY amlodipine 5 mg PO DAILY atorvastatin 20 mg PO DAILY calcium carbonate (Calcium) 1,200 mg PO DAILY metoprolol succinate ER 50 mg PO DAILY omeprazole 20 mg PO DAILY PRN raloxifene 60 mg PO DAILY warfarin 2 mg See Protocol PO DAILY Nursing Note INR: 2.1- in therapeutic range of 2-3 Medications and supplements reviewed- no changes No changes in health, diet, medications, or supplements, Denies any signs and symptoms of bleeding or bruising or clotting. Bleeding, bruising, clotting discussed Nutritional guidance given Dose: 4mg x 2 , 2mg x5 F/U INR: 4 weeks Patient verbalizes understanding of instructions given Anti-Coag Initial Assessment Social Hx Patient Tobacco Use Status: Never used Tobacco alcohol intake: never Coding Level of Care Code Est Patient Level 1 Diagnoses Current use of anticoagulant therapy Z79.01 Results AMB INR Fingerstick AMB INR Fingerstick 2.1 Last Edit by Inocencia Raphael RN on 03/28/23 11:26 Assessment & Plan Assessment & Plan (1) Current use of anticoagulant therapy: Code(s): Z79.01 - [facility] (current) use of anticoagulants Category: Medical
[2023-03-29 09:16] LABS: Prothrombin Time Whole Bld POC 24.8 sec (11.1-13.5); ~PT, ~INR - Anti Coag Clinic 2.1 (0.9-1.1)
== END 2023-03-28 11:32 | disposition home or self-care (01) ==
LOC: HO.ACS 11:21
PROVIDERS: PCP Physician Assistant; Visit Provider Internal Medicine
DX: Z79.01 Long term (current) use of anticoagulants (principal)

== ENCOUNTER → 2023-03-28 11:21 | Outpatient (BNVA) | payer MEDICARE, SELFPAY | PROVIDERS: PCP Physician Assistant; Visit Provider Internal Medicine | DX: I48.0 Paroxysmal atrial fibrillation (principal); Z79.01 Long term (current) use of anticoagulants; Z51.81 Encounter for therapeutic drug level monitoring | CPT/HCPCS: 85610; 99211 ==

== ENCOUNTER 2023-04-25 10:46 | Outpatient (AMB) | payer MEDICARE, SELFPAY ==
--- NOTE | 2023-04-25 10:56 | MHC.OFFVISCO ---
Intake Intake Visit Reasons: Anticoagulation Allergies No Known Allergies [No Known Allergies*] Allergy (Verified 04/25/23 10:50) Medication List - Last Reconciled 04/25/23 by Inocencia Raphael RN amiodarone 100 mg (1/2 x 200 mg) PO DAILY amlodipine 5 mg PO DAILY atorvastatin 20 mg PO DAILY calcium carbonate (Calcium) 1,200 mg PO DAILY metoprolol succinate ER 50 mg PO DAILY omeprazole 20 mg PO DAILY PRN raloxifene 60 mg PO DAILY warfarin 2 mg See Protocol PO DAILY Nursing Note INR 1.8-?? out of therapeutic range of 2-3 unsure if missed a dose Medications and supplements reviewed Patient status: no c.o Medications or supplements: no changes Diet: did not get meals on wheels last few days Denies any signs and symptoms of bleeding or clotting or unusual bruising Bleeding, bruising, clotting discussed Nutritional guidance given: no greens for 2 days, eat reds to raise Dose: 4mg today then cont reg 4mg x 2, 2mg x 5 F/U INR Date : 2 weeks Patient verbalizing understanding of instructions given. 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
[2023-04-25 10:57] LABS: Prothrombin Time Whole Bld POC 21.7 sec (11.1-13.5); ~PT, ~INR - Anti Coag Clinic 1.8 (0.9-1.1)
== END 2023-04-25 11:01 | disposition home or self-care (01) ==
LOC: HO.ACS 10:46
PROVIDERS: PCP Physician Assistant; Visit Provider Internal Medicine
DX: Z79.01 Long term (current) use of anticoagulants (principal)

== ENCOUNTER → 2023-04-25 10:46 | Outpatient (BNVA) | payer MEDICARE, SELFPAY | PROVIDERS: PCP Physician Assistant; Visit Provider Internal Medicine | DX: I48.0 Paroxysmal atrial fibrillation (principal); Z51.81 Encounter for therapeutic drug level monitoring; Z79.01 Long term (current) use of anticoagulants | CPT/HCPCS: 85610; 99211 ==

== ENCOUNTER 2023-05-14 12:48 | Outpatient (REF) | payer MEDICARE, SELFPAY ==
[2023-05-14 13:12] LABS: MANUAL DIFF FLAG NO
[2023-05-14 13:21] LABS: Basophils Absolute Auto 0.1 X10*3/uL (0.0-0.2); Basophils Percent Auto 0.9 % (0-2); Eosinophils Absolute Auto 0.1 X10*3/uL (0.0-0.4); Eosinophils Percent Auto 1.2 % (0-4); Hematocrit 44.8 % (37.0-47.0); Hemoglobin 14.7 g/dl (12.0-16.0); Imm Gran Abs Auto 0.08 X10*3/uL (0.00-0.03); Imm Gran Pct Auto 1.2 % (0.0-0.4); Lymphocytes Absolute Auto 1.7 X10*3/uL (1.2-4.9); Lymphocytes Percent Auto 26.4 % (20-40); Mean Corpuscular HGB Conc 32.8 g/dl (31.0-35.0); Mean Corpuscular Hemoglobin 31.6 pg (27.0-33.0); Mean Corpuscular Volume 96.3 fL (80.0-98.0); Mean Platelet Volume 9.7 fL (9.4-12.3); Monocytes Absolute Auto 0.8 X10*3/uL (0.1-1.2); Monocytes Percent Auto 12.3 % (2-11); Neutrophils Absolute Auto 3.8 x10*3/uL (2.0-8.3); Platelet Count 176 X10*3/uL (160-400); Red Blood Count 4.65 X10*6/uL (4.20-5.50); Red Cell Distribution Width 13.5 % (11.0-16.0); White Blood Count 6.5 X10*3/uL (4.8-10.8)
[2023-05-14 14:00] LABS: Parathyroid Hormone Intact 115.2 pg/mL (8.7-77.1)
[2023-05-14 14:07] LABS: Appearance Urine Cloudy; Color Urine Dark Yellow; Glucose Urine UA Negative (Negative); Leukocyte Esterase Urine Large (3+) (Negative); Nitrite Urine Negative (Negative); UMIC TRIGGER UA YES; Urine Blood Negative (Negative); Urine Ketones Trace mg/dL (Negative); Urine Protein 30 (1+) mg/dL (Neg-Trace)
[2023-05-14 14:11] LABS: Anion Gap 13 (12-20); Blood Urea Nitrogen 34 mg/dL (9-16); Calcium 10.5 mg/dL (8.4-10.2); Carbon Dioxide 21 mmol/L (22-29); Chloride 109 mmol/L (96-108); Estimated Glomerular Filt Rate 28; Potassium 3.6 mmol/L (3.3-5.1); Sodium 139 mmol/L (135-145)
[2023-05-14 14:20] LABS: Vitamin D 25-OH Total 35.3 ng/mL (>30)
[2023-05-14 14:23] LABS: Creatinine Urine 205.55 mg/dL; Microalbum/Creatinine Ratio Ur 45.2 ug/mg cr (<30); Protein/Creatinine Ratio, Ur 0.12 (<0.2); Total Protein Urine Random 25 mg/dL (<12)
[2023-05-14 14:45] LABS: Bacteria Urine 4+ (None Seen); RBC Urine 0-2 /HPF (0-2)
[2023-05-15 11:13] LABS: Kappa Light Chain, Free Serum 51.2 mg/L (3.3-19.4); Kappa/Lambda Lt Ch Free Ratio 2.06 (0.26-1.65); Lambda Light Chain, Free Serum 24.8 mg/L (5.7-26.3)
== END 2023-05-14 12:49 | disposition home or self-care (01) ==
LOC: HO.LAB 12:48
PROVIDERS: PCP Physician Assistant; Visit Provider Internal Medicine
DX: N18.32 Chronic kidney disease, stage 3b (principal); I48.0 Paroxysmal atrial fibrillation; Z51.81 Encounter for therapeutic drug level monitoring; Z79.01 Long term (current) use of anticoagulants
CPT/HCPCS: 36415; 80051; 81001; 81003; 82043; 82306; 82310; 82565; 82570; 83521; 83970; 84156; 84520; 85025; 85610; 99211

== ENCOUNTER 2023-05-14 13:22 | Outpatient (AMB) | payer MEDICARE, SELFPAY ==
[2023-05-14 13:47] LABS: Prothrombin Time Whole Bld POC 30.8 sec (11.1-13.5); ~PT, ~INR - Anti Coag Clinic 2.6 (0.9-1.1)
--- NOTE | 2023-05-14 13:50 | MHC.OFFVISCO ---
Intake Intake Visit Reasons: Anticoagulation Allergies No Known Allergies [No Known Allergies*] Allergy (Verified 05/14/23 13:42) Medication List - Last Reconciled 05/14/23 by Erika Hannon RN amiodarone 100 mg (1/2 x 200 mg) PO DAILY amlodipine 5 mg PO DAILY atorvastatin 20 mg PO DAILY calcium carbonate (Calcium) 1,200 mg PO DAILY metoprolol succinate ER 50 mg PO DAILY omeprazole 20 mg PO DAILY PRN raloxifene 60 mg PO DAILY warfarin 2 mg See Protocol PO DAILY Nursing Note Amb to ACS using cane, feeling well Medications and supplements reviewed No changes in health, diet, medications, or supplements Denies any unusual signs and symptoms of bruising, bleeding Denies any new Chest pain, SOB, or clotting INR: 2.6 now in therapeutic range Nutritional guidance given: balance greens and reds in diet, Ensure acts as a green- be consistent Dose: continue usual dosing; 4mg x 2 days and 2mg x 6 days F/U INR: 4 weeks Patient verbalizes understanding of instructions given with accurate read back/ teach back of dosing Anti-Coag Initial Assessment Social Hx Patient Tobacco Use Status: Never used Tobacco alcohol intake: never Coding Level of Care Code Est Patient Level 1 Diagnoses Current use of anticoagulant therapy Z79.01 Time Spent (min) 15 Assessment & Plan Assessment & Plan (1) Current use of anticoagulant therapy: Code(s): Z79.01 - [facility] (current) use of anticoagulants Category: Medical
== END 2023-05-14 13:55 | disposition home or self-care (01) ==
LOC: HO.ACS 13:22
PROVIDERS: PCP Physician Assistant; Visit Provider Internal Medicine
DX: Z79.01 Long term (current) use of anticoagulants (principal)

== ENCOUNTER 2023-06-06 13:00 | Outpatient (AMB) | payer MEDICARE, SELFPAY ==
[2023-06-06 13:10] LABS: Prothrombin Time Whole Bld POC 29.9 sec (11.1-13.5); ~PT, ~INR - Anti Coag Clinic 2.5 (0.9-1.1)
--- NOTE | 2023-06-06 13:15 | MHC.OFFVISCO ---
Intake Intake Visit Reasons: Anticoagulation Allergies No Known Allergies [No Known Allergies*] Allergy (Verified 06/06/23 13:06) Medication List - Last Reconciled 06/06/23 by Isamar Bowles RN amiodarone 100 mg (1/2 x 200 mg) PO DAILY amlodipine 5 mg PO DAILY atorvastatin 20 mg PO DAILY calcium carbonate (Calcium) 1,200 mg PO DAILY metoprolol succinate ER 50 mg PO DAILY omeprazole 20 mg PO DAILY PRN raloxifene 60 mg PO DAILY warfarin 2 mg See Protocol PO DAILY Nursing Note NO CP,SOB,DIET/ME3D CHANGES,FALLS OR SX OF BLEEDING. CONTINUE PRESENT DOSE AND FOLLOW-UP IN 4 WEEKS. GOOD UNDERSTANDING OF DOSING INSTR. Anti-Coag Initial Assessment Social Hx Patient Tobacco Use Status: Never used Tobacco alcohol intake: never Coding Level of Care Code Est Patient Level 1 Diagnoses Current use of anticoagulant therapy Z79.01 Assessment & Plan Assessment & Plan (1) Current use of anticoagulant therapy: Code(s): Z79.01 - [facility] (current) use of anticoagulants Category: Medical
== END 2023-06-06 13:16 | disposition home or self-care (01) ==
LOC: HO.ACS 13:00
PROVIDERS: PCP Physician Assistant; Visit Provider Internal Medicine
DX: Z79.01 Long term (current) use of anticoagulants (principal)

== ENCOUNTER → 2023-06-06 13:00 | Outpatient (BNVA) | payer MEDICARE, SELFPAY | PROVIDERS: PCP Physician Assistant; Visit Provider Internal Medicine | DX: I48.0 Paroxysmal atrial fibrillation (principal); Z79.01 Long term (current) use of anticoagulants; Z51.81 Encounter for therapeutic drug level monitoring | CPT/HCPCS: 85610; 99211 ==

== ENCOUNTER 2023-06-28 13:42 | Outpatient (AMB) | payer MEDICARE, SELFPAY ==
[2023-06-28 14:10] VITALS: BP 132/74; PULSE 77; O2SAT 99; BMI 19.7
--- NOTE | 2023-06-28 14:10 | MHC.PC.OV ---
Vital Signs 06/28/23 14:10 Height 5 ft 5 in Weight 118 lb 8 oz BMI 19.7 BP 132/74 Blood Pressure Location Lt brachial Position Sitting Pulse 77 Pulse Source Pulse Oximeter Pulse Oximetry (%) 99 Oxygen Delivery Method Room Air Intake Visit Reasons: f/u AFIB/ HTN Counterperson Required: No Accompanied by: Self / Same As Patient Allergies No Known Allergies [No Known Allergies*] Allergy (Verified 06/28/23 14:22) Medication List - Last Reconciled 06/28/23 by Ruben Dick PA-C amiodarone 100 mg (1/2 x 200 mg) PO DAILY amlodipine 5 mg PO DAILY atorvastatin 20 mg PO DAILY calcium carbonate (Calcium) 1,200 mg PO DAILY metoprolol succinate ER 50 mg PO DAILY omeprazole 20 mg PO DAILY PRN raloxifene 60 mg PO DAILY warfarin 2 mg See Protocol PO DAILY Tobacco use date assessed: 06/28/23 Fall risk assessment: No Falls in past year Last assessed Fall Risk: 06/28/23 Dental Screening Dental Screen Date: 06/28/23 Did you have a dental visit in the last 12 months?: Yes Did you have a dental problem in the last 6 months where you did not have access to dental care?: No Was dental information given to patient?: Patient has dentist HPI f/u AFIB/ HTN HPI Details Patient is an 88-year-old female here today for a follow-up visit. Patient has a past medical history significant for paroxysmal AFib, CKD-4, malignant melanoma, history of breast cancer .. Paroxysmal AFib:? Patient is followed by Cardiology, denies any overt signs of bleeding. She continues on rhythm control with amiodarone. She feels she has some dizziness and unsteadiness on her feet due to the medication. . CKD stage 4:? Patient now followed by Nephrology. most recent creatinine at 1.7? She does have microalbuminuria.? She does report she has a hard time keeping hydrated with free fluids. Recently found to have kidney cysts. Reviewed most recent labs and noted slightly elevated calcium and elevated parathyroid hormone. Laboratory Tests 10/01/19 09/19/21 02/09/23 08:00 12:11 10:06 Hgb Creatinine 1.52 H Calcium PTH Intact 205 H 83 H 05/14/23 05/14/23 05/14/23 13:11 13:11 13:11 Hgb 14.7 Creatinine 1.70 H Calcium 10.5 H PTH Intact 115.2 H PFSH Medical History (Updated 07/02/23 @ 07:45 by Ruben Dick PA-C) PAF (paroxysmal atrial fibrillation) Essential hypertension Pulmonary hypertension Non-rheumatic tricuspid stenosis with insufficiency Abnormal myocardial perfusion study Chronic heart failure with preserved ejection fraction (HFpEF) Hiatal hernia Diverticulitis Gastro-esophageal reflux disease without esophagitis High cholesterol Hypertension Atrial fibrillation Surgical History S/P total abdominal hysterectomy History of cardioversion H/O mastectomy Family History Father Heart disease Mother Colon cancer Social History Household Members: None Housing: Apartment Are you a primary primary care physician to a significant other at home: No Do you presently have visiting nurse or other home services: No Alcohol intake: never Patient Tobacco Use Status: Never used Tobacco e-Cigarette/Vaping Use: Never Used Second Hand Smoke Exposure: No Advance Directives Date on File: 01/16/20 service: No Current occupational status: retired Cognitive needs: No Hearing needs: No Vision needs: No Questionnaire PHQ-9 Over the last 2 weeks, how often have you been bothered by any of the following problems? 1. Little interest or pleasure in doing things: not at all 2. Feeling down, depressed, or hopeless: not at all 3. Trouble falling or staying asleep, or sleeping too much: not at all 4. Feeling tired or having little energy: not at all 5. Poor appetite or overeating: not at all 6. Feeling bad about yourself - or that you are a failure or have let yourself or your family down: not at all 7. Trouble concentrating on things, such as reading the newspaper or watching television: not at all 8. Moving or speaking so slowly that other people could have noticed. Or the opposite - being so fidgety or restless that you have been moving around a lot more than usual: not at all 9. Thoughts that you would be better off or of hurting yourself in some way: not at all Total score: 0 Depression Screening Interpretation: Negative Depression Screening Done: Yes 40345 - PHQ-9 Billing: Yes Source: Developed by Drs. Bandar Lopez, Shell Sahni, Mohinder Tellez and colleagues, with an educational hiram from [employer]. Thrive Questionnaire Date Thrive assessed: 06/28/23 I am a: Patient What is your living situation today?: I have a steady place to live Within the past 12 months, did the food you bought not last and you didn't have the money to get more?: Never true Within the past 12 months, did you worry whether your food would run out before you got money to buy more?: Never true Do you have trouble paying for medicines?: No Do you have trouble getting transportation to medical appointments?: No Do you have trouble paying your heating and electricity bill?: No Do you have trouble taking care of your child, family member or friend?: No Do you have trouble with day-to-day activities such as bathing, preparing meals, shopping, managing finances, etc.?: No Are you currently unemployed and looking for a job?: No Are you interested in more education?: No Please select the resources that you would like help with: None Currently or been in a relationship where the following occur: no concerns reported THRIVE Score: 0 AUDIT C Alcohol Use Questionnaire (AUDIT-C) 1. How often do you have a drink containing alcohol?: Never 3. How often do you have six or more drinks on one occasion?: Never Total Score: 0 ANGEL-7 AMB Questionnaire ANGEL-7 Date ANGEL - 7 assessed: 06/28/23 Feeling nervous, anxious, or on edge: 0 = Not at all Not being able to stop or control worryin = Not at all Worrying too much about different things: 0 = Not at all Trouble relaxin = Not at all Being so restless that it is hard to sit still: 0 = Not at all Becoming easily annoyed or irritable: 0 = Not at all Feeling afraid as if something awful might happen: 0 = Not at all Total ANGEL-7 score (0-4 normal; 5-9 mild; 10-14 moderate; 15-21 severe): 0 Source: Developed by Shell Jimenez, Mohinder Tellez and colleagues, with an educational hiram from [employer]. ANGEL-7 Assessment Billing ANGEL-7 Assessment Tool: ANGEL-7 Assessment 50164 Review of Systems Const Denies headache(s) Eyes Denies loss of vision ENT Denies vertigo, Denies dizziness, Denies headache(s) and Denies sore throat Card Denies chest pain, Denies leg edema and Denies lightheadedness Resp Denies cough, Denies hemoptysis and Denies wheezing GI Denies abdominal pain, Denies melena, Denies constipation, Denies diarrhea and Denies vomiting Denies urinary frequency, Denies dysuria and Denies urinary urgency Musc Denies arthralgias, Denies joint swelling, Denies numbness and Denies tingling Neuro Denies Abnormal speech present, Denies behavioral changes, Denies vertigo, Denies dizziness, Denies headache(s), Denies loss of vision, Denies memory loss, Denies numbness and Denies tingling Psych Denies anxiety, Denies behavioral changes, Denies depression, Denies memory loss and Denies panic attacks Zach/Lymph Denies easy bleeding and Denies easy bruising Aller/Immun Denies wheezing Physical exam (Primary Care) Vital Signs: Last Vital Signs Pulse 77 06/28/23 14:10 BP 132/74 06/28/23 14:10 Pulse Ox 99 06/28/23 14:10 Oxygen Delivery Method Room Air 06/28/23 14:10 BMI result Body Mass Index 19.7 Tobacco/Smoking Status: Tobacco use Status Tobacco use date assessed 06/28/23 06/28/23 14:16 Patient Tobacco Use Status Never used Tobacco 06/28/23 14:13 e-Cigarette/Vaping Use Never Used 06/28/23 14:13 PHQ-9: PHQ-9 Score PHQ-9: Total score 0 06/28/23 14:13 Depression Screening Interpretation: Negative Thrive Assessment: Date of Thrive Assessment Date Thrive assessed 06/28/23 06/28/23 14:13 Currently or been in a relationship where the following occur: no concerns reported Const General: healthy appearing, no acute distress, alert and awake Nutritional Appearance: well nourished Orientation/consciousness: oriented to person, oriented to place and oriented to time HENMT Ears: TM's normal bilaterally General nose exam: Normal nasal mucous membranes and turbinates present Eyes Conjunctivae: conjunctivae normal Sclerae: sclerae normal Pupils: Equal, round and reactive pupils present Neck Neck: Yes no lymphadenopathy and Yes no JVD Thyroid: Thyroid normal Carotids: no bruits Resp Effort & Inspection: normal respiratory effort and not tachypneic Auscultation: no crackles, no rales, no rhonchi and no wheezes Cardio Rate: regular rate Rhythm: regular rhythm Heart sounds: no murmurs and normal S1 and S2 GI Palpation (GI): Soft to palpation, nontender, no hepatomegaly and no splenomegaly Auscultation: normal bowel sounds Skin General skin exam: no rashes or lesions noted and dry skin Neuro General: oriented to person, oriented to place and oriented to time Cranial nerves: Yes Equal, round and reactive pupils present Speech: No Abnormal speech present Gait exam (Neuro): Normal gait present Motor exam (neuro): no tremor noted Extrem Right upper extremity: full ROM Left upper extremity: full ROM Right lower extremity: full ROM; no edema Left lower extremity: full ROM; no edema Psych Mental Status: mental status grossly normal Speech and movement: Normal speech and movement present Affect: normal affect Attitude: cooperative Thought process: Normal thought process present Assessment and Plan Assessment & Plan (1) PAF (paroxysmal atrial fibrillation): Code(s): I48.0 - Paroxysmal atrial fibrillation Plan: AFib has been controlled with rhythm and rate control. Continues on warfarin and follow still anticoagulation clinic. She does report she she does not like to take amiodarone as she feels it is causing some dizziness. (2) Chronic heart failure with preserved ejection fraction (HFpEF): Code(s): I50.32 - Chronic diastolic (congestive) heart failure Plan: Heart failure has been well controlled with controlling her AFib. Continues to follow cardiology. Appears to be euvolemic on physical exam today. (3) CKD (chronic kidney disease) stage 4, GFR 15-29 ml/min: Code(s): N18.4 - Chronic kidney disease, stage 4 (severe) Plan: Patient's most recent creatinine has slightly improved. Will continue to follow renal function. Will continue to refrain from nephrotoxins medication. (4) Osteoarthritis of right knee: Code(s): M17.11 - Unilateral primary osteoarthritis, right knee Qualifiers: Osteoarthritis type: primary Qualified Code(s): M17.11 - Unilateral primary osteoarthritis, right knee Plan: Does report having some right knee pain. Advised on using Tylenol arthritis. Has had cortisone injections in the past by Orthopedics. (5) Breast cancer: Code(s): C50.919 - Malignant neoplasm of unspecified site of unspecified female breast Qualifiers: Breast location: unspecified site of breast Estrogen receptor status: unspecified Patient sex: female Laterality: right Qualified Code(s): C50.911 - Malignant neoplasm of unspecified site of right female breast Plan: Continues to follow Oncology. Breast cancer has been in remission. She is status post mastectomy Coding Level of Care Code Est Pt Level 4 (21645) Diagnoses PAF (paroxysmal atrial fibrillation) I48.0 Chronic heart failure with preserved ejection fraction (HFpEF) I50.32 CKD (chronic kidney disease) stage 4, GFR 15-29 ml/min N18.4 Primary osteoarthritis of right knee M17.11 Osteoarthritis type: primary Malignant neoplasm of right female breast, unspecified estrogen receptor status, unspecified site of breast C50.911 Breast location: unspecified site of breast Estrogen receptor status: unspecified Patient sex: female Laterality: right Additional Codes ANGEL-7 Assessment Billing - ANGEL-7 Assessment Tool: ANGEL-7 Assessment [id number] ([id number])
== END 2023-06-28 14:38 | disposition home or self-care (01) ==
PROVIDERS: PCP Physician Assistant; Visit Provider Physician Assistant
DX: I48.0 Paroxysmal atrial fibrillation (principal); I50.32 Chronic diastolic (congestive) heart failure; N18.4 Chronic kidney disease, stage 4 (severe); C50.911 Malignant neoplasm of unspecified site of right female breast; M17.11 Unilateral primary osteoarthritis, right knee
CPT/HCPCS: 99214

== ENCOUNTER 2023-07-04 13:02 | Outpatient (AMB) | payer MEDICARE, SELFPAY ==
[2023-07-04 13:07] LABS: Prothrombin Time Whole Bld POC 33.1 sec (11.1-13.5); ~PT, ~INR - Anti Coag Clinic 2.8 (0.9-1.1)
--- NOTE | 2023-07-04 13:12 | MHC.OFFVISCO ---
Intake Intake Visit Reasons: Anticoagulation Allergies No Known Allergies [No Known Allergies*] Allergy (Verified 07/04/23 13:02) Medication List - Last Reconciled 07/04/23 by Isamar Bowles RN amiodarone 100 mg (1/2 x 200 mg) PO DAILY amlodipine 5 mg PO DAILY atorvastatin 20 mg PO DAILY calcium carbonate (Calcium) 1,200 mg PO DAILY metoprolol succinate ER 50 mg PO DAILY omeprazole 20 mg PO DAILY PRN raloxifene 60 mg PO DAILY warfarin 2 mg See Protocol PO DAILY Nursing Note NO CP,SOB,DIET/MED CHANGES,FALLS OR SX OF BLEEDING. CONTINUE PRESENT DOSE AND FOLLOW-UP IN 4 WEEKS. GOOD UNDERSTANDING OF DOSING INSTR. 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
== END 2023-07-04 13:13 | disposition home or self-care (01) ==
LOC: HO.ACS 13:02
PROVIDERS: PCP Physician Assistant; Visit Provider Internal Medicine
DX: Z79.01 Long term (current) use of anticoagulants (principal)

== ENCOUNTER → 2023-07-04 13:02 | Outpatient (BNVA) | payer MEDICARE, SELFPAY | PROVIDERS: PCP Physician Assistant; Visit Provider Internal Medicine | DX: I48.0 Paroxysmal atrial fibrillation (principal); Z79.01 Long term (current) use of anticoagulants; Z51.81 Encounter for therapeutic drug level monitoring | CPT/HCPCS: 85610; 99211 ==

== ENCOUNTER 2023-07-12 14:39 | Outpatient (AMB) | payer MEDICARE, SELFPAY ==
--- NOTE | 2023-07-12 14:40 | HO.NEPHOV ---
HPI HPI Comments History of Present Illness Details 88 yr old woman with HTN , A fib and CKD Here for follow up No new issues PFSH Medical History (Updated 07/12/23 @ 15:03 by Santana Segovia MD) PAF (paroxysmal atrial fibrillation) Essential hypertension Pulmonary hypertension Non-rheumatic tricuspid stenosis with insufficiency Abnormal myocardial perfusion study Chronic heart failure with preserved ejection fraction (HFpEF) Hiatal hernia Diverticulitis Gastro-esophageal reflux disease without esophagitis High cholesterol Hypertension Atrial fibrillation Surgical History S/P total abdominal hysterectomy History of cardioversion H/O mastectomy Family History Father Heart disease Mother Colon cancer Social History Household Members: None Housing: Apartment Are you a primary lead care manager to a significant other at home: No Do you presently have visiting nurse or other home services: No Alcohol intake: never Patient Tobacco Use Status: Never used Tobacco e-Cigarette/Vaping Use: Never Used Second Hand Smoke Exposure: No Advance Directives Date on File: 01/16/20 service: No Current occupational status: retired Cognitive needs: No Hearing needs: No Vision needs: No Vital Signs 07/12/23 14:41 Height 5 ft 5 in Weight 119 lb BMI 19.8 BP 140/82 H Blood Pressure Location Lt brachial Position Sitting Pulse 74 Pulse Source Pulse Oximeter Pulse Oximetry (%) 95 Oxygen Delivery Method Room Air Physical Exam Vital Signs: Last Vital Signs Pulse 74 07/12/23 14:41 BP 140/82 H 07/12/23 14:41 Pulse Ox 95 07/12/23 14:41 Oxygen Delivery Method Room Air 07/12/23 14:41 BMI result Body Mass Index 19.8 Const General: comfortable Nutritional Appearance: well nourished Orientation/consciousness: patient oriented x3 HEENT Head: No normal to inspection Mouth: moist mucous membranes Neck Neck: Yes supple and Yes no JVD Resp Auscultation: clear to auscultation bilaterally, no rales and rub present Cardio Jugular venous distension: no JVD Palpation: no palpable S3 and no palpable S4 Heart sounds: no rubs GI Palpation (GI): Soft to palpation and nontender Percussion: No Fluid wave present General: Yes no CVA tenderness Back/Spine/Pelvis Back: no CVA tenderness Skin General skin exam: no rashes or lesions noted Neuro General: patient oriented x3 Extrem General: Yes no pedal edema and No clubbing Assessment & Plan Assessment & Plan (1) Hypertension: Code(s): I10 - Essential (primary) hypertension Plan: BP acceptable Stay on low salt diet No changes in meds (2) CKD (chronic kidney disease) stage 4, 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 Panel 11 Months N18.4 - Chronic kidney disease, stage 4 (severe), N18.9 - Chronic kidney disease, unspecified Phosphorus 11 Months N18.4 - Chronic kidney disease, stage 4 (severe) Complete Blood Count Auto Diff 11 Months N18.30 - Chronic kidney disease, stage 3 unspecified, N18.4 - Chronic kidney disease, stage 4 (severe) Coding Level of Care Code Est Pt Level 4 (62064) Diagnoses Hypertension I10 CKD (chronic kidney disease) stage 4, GFR 15-29 ml/min N18.4 Results Reviewed Nephrology Results: Hgb 14.7 g/dl (12.0-16.0) 05/14/23 WBC 6.5 X10*3/uL (4.8-10.8) 05/14/23 Plt Count 176 X10*3/uL (160-400) 05/14/23 Sodium 139 mmol/L (135-145) 05/14/23 Potassium 3.6 mmol/L (3.3-5.1) 05/14/23 Chloride 109 mmol/L (96-108) H 05/14/23 Carbon Dioxide 21 mmol/L (22-29) L 05/14/23 BUN 34 mg/dL (9-16) H 05/14/23 Creatinine 1.70 mg/dL (0.5-1.4) H 05/14/23 Calcium 10.5 mg/dL (8.4-10.2) H 05/14/23 PTH Intact 115.2 pg/mL (8.7-77.1) H 05/14/23 Urine Protein 30 (1+) mg/dL (Neg-Trace) H 05/14/23 Urine Creatinine 205.55 mg/dL 05/14/23 Protein/Creatinin Ratio 0.12 (<0.2) 05/14/23
[2023-07-12 14:41] VITALS: BP 140/82; PULSE 74; O2SAT 95; BMI 19.8
== END 2023-07-12 15:02 | disposition home or self-care (01) ==
LOC: HO.HKA 14:39
PROVIDERS: PCP Physician Assistant; Visit Provider Internal Medicine Hypertension Specialist
DX: I12.9 Hypertensive chronic kidney disease with stage 1 through stage 4 chronic kidney disease, or unspecified chronic kidney disease (principal); N18.4 Chronic kidney disease, stage 4 (severe)
CPT/HCPCS: 99214

== ENCOUNTER → 2023-07-12 14:39 | Outpatient (BNVA) | payer MEDICARE, SELFPAY | PROVIDERS: PCP Physician Assistant; Visit Provider Internal Medicine Hypertension Specialist | DX: I12.9 Hypertensive chronic kidney disease with stage 1 through stage 4 chronic kidney disease, or unspecified chronic kidney disease (principal); N18.4 Chronic kidney disease, stage 4 (severe) | CPT/HCPCS: 99212 ==

== ENCOUNTER 2023-08-01 13:02 | Outpatient (AMB) | payer MEDICARE, SELFPAY ==
[2023-08-01 13:12] LABS: Prothrombin Time Whole Bld POC 43.3 sec (11.1-13.5); ~PT, ~INR - Anti Coag Clinic 3.6 (0.9-1.1)
--- NOTE | 2023-08-01 13:12 | MHC.OFFVISCO ---
Intake Intake Visit Reasons: Anticoagulation Allergies No Known Allergies [No Known Allergies*] Allergy (Verified 08/01/23 13:07) Medication List - Last Reconciled 08/01/23 by Inocencia Raphael RN amiodarone 100 mg (1/2 x 200 mg) PO DAILY amlodipine 5 mg PO DAILY atorvastatin 20 mg PO DAILY calcium carbonate (Calcium) 600 mg PO DAILY metoprolol succinate ER 50 mg PO DAILY raloxifene 60 mg PO DAILY warfarin 2 mg See Protocol PO DAILY Nursing Note INR 3.6-? out of therapeutic range of 2-3 Medications and supplements reviewed Patient status: no c.o- amb with cane Medications or supplements: calcium reduced to 600mg daily due to Diet: same Denies any signs and symptoms of bleeding or clotting or unusual bruising Bleeding, bruising, clotting discussed Nutritional guidance given: eat greens to lower inr Dose: hold warfarin today then cont reg 4mg x 2, 2mg x 5 F/U INR Date : 2 weeks? Patient verbalizing understanding of instructions given. Anti-Coag Initial Assessment Social Hx Patient Tobacco Use Status: Never used Tobacco alcohol intake: never Questionnaires HAS-BLED Does the patient had uncontrolled Hypertension?: No Does the patient have renal disease?: Yes Does the patient have liver disease?: No Does the patient have a history of stroke?: No Has the patient had major bleeding or predisposition to bleeding?: No Does the patient have labile INRs?: No Is the patient over 65 years of age?: Yes Is the patient on medications that gives them a predisposition to bleeding?: Yes Does the patient use alcohol?: No HAS-BLED Score: 3 CHADSVASC Age: 75 or over Gender: Female Does the patient have a history of CHF?: Yes Does the patient have a history of Hypertension?: Yes Does the patient have a history of Stroke/TIA/Thromboembolism?: Yes Does the patient have a history of Vascular Disease (prior HI, PAD or aortic plaque)?: No Does the patient have a history of Diabetes?: No CHADS VACS Score: 7 Vicenta Prediction Score Rsk VTE Active Cancer: No Previous VTE, excluding superficial vein thrombosis: Yes Reduced mobility: Yes Already known Thrombophilic Condition: No With-in last month Trauma and/or Surgery: No Elderly 70 year or older: Yes Heart and/or Respiratory Failure: Yes Acute Myocardial infarction and/or Ischemic Stroke: No Acute Infection and/or Rheumatologic Disorder: No Obesity (BMI 30 or greater): No Ongoing Hormonal Treatment: No Score: 8 Vicenta Score less than 4; Low Risk of VTE Vicenta Score 4 or greater; High Risk of VTE Coding Level of Care Code Est Patient Level 1 Diagnoses Current use of anticoagulant therapy Z79.01 Assessment & Plan Assessment & Plan (1) Current use of anticoagulant therapy: 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
== END 2023-08-01 13:35 | disposition home or self-care (01) ==
LOC: HO.ACS 13:02
PROVIDERS: PCP Physician Assistant; Visit Provider Internal Medicine
DX: Z79.01 Long term (current) use of anticoagulants (principal)

== ENCOUNTER → 2023-08-01 13:02 | Outpatient (BNVA) | payer MEDICARE, SELFPAY | PROVIDERS: PCP Physician Assistant; Visit Provider Internal Medicine | DX: I48.0 Paroxysmal atrial fibrillation (principal); Z79.01 Long term (current) use of anticoagulants; Z51.81 Encounter for therapeutic drug level monitoring | CPT/HCPCS: 85610; 99211 ==

== ENCOUNTER 2023-08-16 08:38 | Outpatient (REF) | payer MEDICARE, SELFPAY ==
--- NOTE | ~2023-08-16 | US_ITS ---
EXAMINATION: US ABDOMEN COMPLETE CLINICAL INFORMATION: Complex renal cyst. COMPARISON: Ultrasound abdomen complete 02/09/2023. MRI abdomen 10/28/2021. Renal ultrasound 10/07/2021. CT abdomen and pelvis 01/15/2020. TECHNIQUE: Real-time imaging of the abdominal viscera. Limited visualization due to bowel gas and body habitus. FINDINGS: PANCREAS: Limited visualization of pancreatic tail and head. Imaged portion of pancreatic body is unremarkable. ABDOMINAL AORTA: Atherosclerosis. INFERIOR VENA CAVA: Visualized portions are normal. LIVER: Liver is normal in size. Increased hepatic parenchymal heterogeneity and echogenicity could be associated with hepatocellular disease/hepatic steatosis and substantially limits visualization. Correlation with liver function tests and clinical exam recommended to determine further management. GALLBLADDER: A 2 mm gallbladder polyp was not identified on the prior exam. Cholelithiasis with 1.5 cm gallstone. Borderline gallbladder wall thickening of 3 mm. COMMON BILE DUCT: Normal in caliber measuring 0.4 cm in diameter. RIGHT KIDNEY: No hydronephrosis. No renal calculi. Limited visualization. The kidney measures 9.0 cm in maximum dimension. A 2.0 x 1.9 x 1.7 cm upper pole cyst previously measured 2.0 x 1.7 x 1.8 cm and appears complex with septations. Upper pole 1.4 x 1.2 x 0.9 cm, previously measured 1.2 x 1.2 x 1.0 cm and is very difficult to characterize due to bowel gas and body habitus. 1.3 x 1.4 x 1.0 cm rcz-ax-pztic pole cyst previously measured 2.3 x 1.9 x 1.8 cm and demonstrates multiple septations. Lower pole 0.7 x 0.7 x 0.6 cm cyst, previously 1.6 cm and demonstrates benign features. There is no indication for additional imaging at this time. LEFT KIDNEY: No hydronephrosis or renal calculi. The kidney measures 11.4 cm in maximum dimension. Left renal lower pole 7.6 x 5.5 x 6.9 cm complex cyst with diffuse, heterogeneous internal echoes previously measured 8.6 x 6.7 x 6.7 cm on 02/09/2023 and 8.3 x 6.5 x 7.4 cm on 10/07/2021. SPLEEN: Normal. The spleen measures 9.9 cm in maximum dimension. FREE FLUID: None. US/US abdomen complete IMPRESSION: 1. Left renal lower pole 7.6 cm complex cyst with diffuse, heterogeneous internal echoes previously measured 8.6 cm on 02/09/2023 and 8.3 cm on 10/07/2021. Multiple right renal complex cysts as detailed above. 2. A 2 mm gallbladder polyp was not identified on the prior exam. Cholelithiasis with 1.5 cm gallstone. Borderline gallbladder wall thickening of 3 mm. 3. Increased hepatic parenchymal heterogeneity and echogenicity could be associated with hepatocellular disease/hepatic steatosis and substantially limits visualization. Correlation with liver function tests and clinical exam recommended to determine further management.
== END 2023-08-16 08:39 | disposition home or self-care (01) ==
LOC: HO.US 08:38
PROVIDERS: PCP Physician Assistant; Visit Provider Internal Medicine Medical Oncology
DX: N28.1 Cyst of kidney, acquired (principal); I48.0 Paroxysmal atrial fibrillation; Z51.81 Encounter for therapeutic drug level monitoring; Z79.01 Long term (current) use of anticoagulants
CPT/HCPCS: 76700; 85610; 99211

== ENCOUNTER 2023-08-16 09:59 | Outpatient (AMB) | payer MEDICARE, SELFPAY ==
[2023-08-16 10:21] LABS: Prothrombin Time Whole Bld POC 29.5 sec (11.1-13.5); ~PT, ~INR - Anti Coag Clinic 2.5 (0.9-1.1)
--- NOTE | 2023-08-16 10:22 | MHC.OFFVISCO ---
Intake Intake Visit Reasons: Anticoagulation Allergies No Known Allergies [No Known Allergies*] Allergy (Verified 08/16/23 10:16) Medication List - Last Reconciled 08/16/23 by Erika Lloyd RN amiodarone 100 mg (1/2 x 200 mg) PO DAILY amlodipine 5 mg PO DAILY atorvastatin 20 mg PO DAILY calcium carbonate (Calcium 600) 600 mg PO DAILY metoprolol succinate ER 50 mg PO DAILY raloxifene 60 mg PO DAILY warfarin 2 mg See Protocol PO DAILY Nursing Note INR: 2.5 in therapeutic range of 2-3 Medications and supplements reviewed No changes in health, diet, medications, or supplements, Denies any signs and symptoms of bleeding or bruising or clotting. Bleeding, bruising, clotting discussed Nutritional guidance given to cont to balance reds and greens Dose: cont usual dose of 4mg X2 days and 2 mg X 5 days F/U INR: 1 month, 09/13/23 Patient verbalizes understanding of instructions given Anti-Coag Initial Assessment Social Hx Patient Tobacco Use Status: Never used Tobacco alcohol intake: never Coding Level of Care Code Est Patient Level 1 Diagnoses Current use of anticoagulant therapy Z79.01 Assessment & Plan Assessment & Plan (1) Current use of anticoagulant therapy: Code(s): Z79.01 - sn[facility] (current) use of anticoagulants Category: Medical
== END 2023-08-16 10:28 | disposition home or self-care (01) ==
LOC: HO.ACS 09:59
PROVIDERS: PCP Physician Assistant; Visit Provider Internal Medicine
DX: Z79.01 Long term (current) use of anticoagulants (principal)

== ENCOUNTER 2023-08-23 12:27 | Outpatient (AMB) | payer MEDICARE, SELFPAY ==
[2023-08-23 12:42] VITALS: BP 120/62; PULSE 70; BMI 20.2
--- NOTE | 2023-08-23 12:42 | MHC.OFFVIS ---
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 Overall, she is just about the same as before. She is quite frail. She is worried about falling down but has not actually had any major falls. Chronic shortness of breath with activity which could be some combination of cardiac issues as well as deconditioning and frailty. That has not changed at all in a long time. Otherwise, seems to be getting along. [facility] Medical History (Updated 08/07/23 @ 14:55 by Marjan Maya MD) PAF (paroxysmal atrial fibrillation) Essential hypertension Pulmonary hypertension Non-rheumatic tricuspid stenosis with insufficiency Abnormal myocardial perfusion study Chronic heart failure with preserved ejection fraction (HFpEF) Hiatal hernia Diverticulitis Gastro-esophageal reflux disease without esophagitis High cholesterol Hypertension Atrial fibrillation Surgical History S/P total abdominal hysterectomy History of cardioversion H/O mastectomy Family History Father Heart disease Mother Colon cancer Social History Household Members: None Housing: Apartment Are you a primary day care director to a significant other at home: No Do you presently have visiting nurse or other home services: No Alcohol intake: never Patient Tobacco Use Status: Never used Tobacco e-Cigarette/Vaping Use: Never Used Second Hand Smoke Exposure: No Advance Directives Date on File: 01/16/20 service: No Current occupational status: retired Cognitive needs: No Hearing needs: No Vision needs: No Review of Systems Const Denies chills, Denies fatigue, Denies fever(s), Denies frequent falls, Denies weakness, Denies weight gain and Denies weight loss ENT Denies dizziness Card Denies chest pain, Denies leg edema, Denies lightheadedness, Denies palpitations, Denies dyspnea and Denies dyspnea on exertion Resp Denies cough, Denies dyspnea and Denies dyspnea on exertion GI Denies hematochezia Musc Denies abnormal gait, Denies muscle weakness, Denies numbness, Denies radiating pain into limb and Denies tingling Neuro Denies abnormal gait, Denies dizziness, Denies frequent falls, Denies numbness, Denies tingling and Denies weakness Endo Denies fatigue and Denies palpitations Physical Exam Vital Signs: Last Vital Signs Pulse 70 08/23/23 12:42 BP 120/62 08/23/23 12:42 BMI result Body Mass Index 20.2 Const General: comfortable and no acute distress Orientation/consciousness: patient oriented x3 HEENT Other: Unremarkable Head: Yes normal to inspection Neck Neck: Yes normal visual inspection Chest Chest palpation & inspection: normal inspection of the chest Resp Auscultation: clear to auscultation bilaterally Cardio Palpation: normal PMI Heart sounds: S1 normal heart sound present, S2 normal heart sound present, no gallops, no murmurs and no rubs GI Palpation (GI): Soft to palpation Back/Spine/Pelvis Other: unremarkable Skin General skin exam: no rashes or lesions noted Neuro General: patient oriented x3 Extrem Other: Trace edema General: Yes normal to inspection Psych Mental Status: mental status grossly normal Office Procedures EKG Details: EKG with sinus rhythm at 70/Min; rightward axis; no significant ST-T changes; [place] [id number], Complete Assessment & Plan Assessment & Plan (1) PAF (paroxysmal atrial fibrillation): Code(s): I48.0 - Paroxysmal atrial fibrillation Category: Medical Plan: She is on low-dose amiodarone. Multaq is too expensive. Not a candidate for sotalol or Tikosyn due to renal failure. May follow TSH. Also on warfarin. (2) Chronic heart failure with preserved ejection fraction (HFpEF): Code(s): I50.32 - Chronic diastolic (congestive) heart failure Category: Medical Plan: Grade 2 diastolic dysfunction echocardiogram with elevated filling pressures. Shortness of breath could be related to this. Reluctant to try diuretics due to frailty and fall risk. She already has baseline renal insufficiency. (3) Abnormal myocardial perfusion study: Code(s): R94.39 - Abnormal result of other cardiovascular function study Category: Medical Plan: Prior myocardial perfusion imaging study had shown mild intensity basal inferolateral ischemia. She has absolutely no angina. At her age, with frailty, no need for any further workup. Continue empiric beta-blockers and statins. (4) Non-rheumatic tricuspid stenosis with insufficiency: Code(s): I36.2 - Nonrheumatic tricuspid (valve) stenosis with insufficiency Category: Medical Plan: [id number] tricuspid regurgitation noted on echocardiogram. No clinical implications at this time. (5) Pulmonary hypertension: Code(s): I27.20 - Pulmonary hypertension, unspecified Category: Medical Plan: Most likely all from left heart disease. (6) Essential hypertension: Code(s): I10 - Essential (primary) hypertension Category: Medical Plan: Stable. No changes. Coding Level of Care Code Est Pt Level 4 (88111) Diagnoses PAF (paroxysmal atrial fibrillation) I48.0 Chronic heart failure with preserved ejection fraction (HFpEF) I50.32 Abnormal myocardial perfusion study R94.39 Non-rheumatic tricuspid stenosis with insufficiency I36.2 Pulmonary hypertension I27.20 Essential hypertension I10 CPT Codes EKG - CPT: [id number], Complete ([id number])
== END 2023-08-23 13:07 | disposition home or self-care (01) ==
PROVIDERS: Visit Provider Internal Medicine
DX: I48.0 Paroxysmal atrial fibrillation (principal); I50.32 Chronic diastolic (congestive) heart failure; R94.39 Abnormal result of other cardiovascular function study; I36.2 Nonrheumatic tricuspid (valve) stenosis with insufficiency; I27.20 Pulmonary hypertension, unspecified; I10 Essential (primary) hypertension
CPT/HCPCS: 93010; 99214

== ENCOUNTER → 2023-08-23 12:27 | Outpatient (BNVA) | payer MEDICARE, SELFPAY | PROVIDERS: Visit Provider Internal Medicine | DX: I48.0 Paroxysmal atrial fibrillation (principal); I11.0 Hypertensive heart disease with heart failure; I50.32 Chronic diastolic (congestive) heart failure; I36.2 Nonrheumatic tricuspid (valve) stenosis with insufficiency; I27.20 Pulmonary hypertension, unspecified; R94.39 Abnormal result of other cardiovascular function study | CPT/HCPCS: 93005; 99212 ==

== ENCOUNTER 2023-09-13 13:01 | Outpatient (AMB) | payer MEDICARE, SELFPAY ==
[2023-09-13 13:10] LABS: Prothrombin Time Whole Bld POC 25.3 sec (11.1-13.5); ~PT, ~INR - Anti Coag Clinic 2.1 (0.9-1.1)
--- NOTE | 2023-09-13 13:16 | MHC.OFFVISCO ---
Intake Intake Visit Reasons: Anticoagulation Allergies No Known Allergies [No Known Allergies*] Allergy (Verified 09/13/23 13:04) Medication List - Last Reconciled 09/13/23 by Anita Mendez RN amiodarone 100 mg (1/2 x 200 mg) PO DAILY amlodipine 5 mg PO DAILY atorvastatin 20 mg PO DAILY calcium carbonate (Calcium 600) 600 mg PO DAILY erythromycin ophthalmic (eye) metoprolol succinate ER 50 mg PO DAILY raloxifene 60 mg PO DAILY warfarin 2 mg See Protocol PO DAILY Nursing Note INR: 2.1 in therapeutic range Medications and supplements reviewed No changes in health, diet, medications, or supplements, Denies any signs and symptoms of bleeding or bruising or clotting. Bleeding, bruising, clotting discussed Nutritional guidance given Dose: 4MG X 2 DAYS / 2MG X 5 DAYS F/U INR: 1 MONTH Patient verbalizes understanding of instructions given Anti-Coag Initial Assessment Social Hx Patient Tobacco Use Status: Never used Tobacco alcohol intake: never Coding Level of Care Code Est Patient Level 1 Diagnoses Current use of anticoagulant therapy Z79.01 Results AMB INR Fingerstick AMB INR Fingerstick 2.1 Last Edit by Anita Mendez RN on 09/13/23 13:11 manual entry Assessment & Plan Assessment & Plan (1) Current use of anticoagulant therapy: Code(s): Z79.01 - correction (current) use of anticoagulants Category: Medical
== END 2023-09-13 13:17 | disposition home or self-care (01) ==
LOC: HO.ACS 13:01
PROVIDERS: PCP Physician Assistant; Visit Provider Internal Medicine
DX: Z79.01 Long term (current) use of anticoagulants (principal)

== ENCOUNTER → 2023-09-13 13:01 | Outpatient (BNVA) | payer MEDICARE, SELFPAY | PROVIDERS: PCP Physician Assistant; Visit Provider Internal Medicine | DX: I48.0 Paroxysmal atrial fibrillation (principal); Z79.01 Long term (current) use of anticoagulants; Z51.81 Encounter for therapeutic drug level monitoring | CPT/HCPCS: 85610; 99211 ==

== ENCOUNTER 2023-10-11 13:07 | Outpatient (AMB) | payer MEDICARE, SELFPAY ==
[2023-10-11 13:14] LABS: ~PT, ~INR - Anti Coag Clinic 1.8 (0.9-1.1)
--- NOTE | 2023-10-11 13:14 | MHC.OFFVISCO ---
Intake Intake Visit Reasons: Anticoagulation Allergies No Known Allergies [No Known Allergies*] Allergy (Verified 10/11/23 13:09) Medication List - Last Reconciled 10/11/23 by Inocencia Raphael RN amiodarone 100 mg (1/2 x 200 mg) PO DAILY amlodipine 5 mg PO DAILY atorvastatin 20 mg PO DAILY calcium carbonate (Calcium 600) 600 mg PO DAILY erythromycin ophthalmic (eye) metoprolol succinate ER 50 mg PO DAILY raloxifene 60 mg PO DAILY warfarin 2 mg See Protocol PO DAILY Nursing Note INR 1.8-?? out of therapeutic range of 2-3 Medications and supplements reviewed Patient status: no c.o, pt amb with cane Medications or supplements: no changes Diet: same Denies any signs and symptoms of bleeding or clotting or unusual bruising Bleeding, bruising, clotting discussed Nutritional guidance given: no greens for 2 days, eat a red today Dose: 4mg today and tomm then cont reg 4mg x 2, 2mg x 5 F/U INR Date : 2 weeks?? Patient verbalizing understanding of instructions given. Anti-Coag Initial Assessment Social Hx Patient Tobacco Use Status: Never used Tobacco alcohol intake: never Coding Level of Care Code Est Patient Level 1 Diagnoses Current use of anticoagulant therapy Z79.01 Assessment & Plan Assessment & Plan (1) Current use of anticoagulant therapy: Code(s): Z79.01 - [facility] (current) use of anticoagulants Category: Medical
== END 2023-10-11 13:20 | disposition home or self-care (01) ==
LOC: HO.ACS 13:07
PROVIDERS: PCP Physician Assistant; Visit Provider Internal Medicine
DX: Z79.01 Long term (current) use of anticoagulants (principal)

== ENCOUNTER → 2023-10-11 13:07 | Outpatient (BNVA) | payer MEDICARE, SELFPAY | PROVIDERS: PCP Physician Assistant; Visit Provider Internal Medicine | DX: I48.0 Paroxysmal atrial fibrillation (principal); Z79.01 Long term (current) use of anticoagulants; Z51.81 Encounter for therapeutic drug level monitoring | CPT/HCPCS: 85610; 99211 ==

== ENCOUNTER 2023-10-30 10:46 | Outpatient (AMB) | payer MEDICARE, SELFPAY ==
[2023-10-30 10:58] LABS: Prothrombin Time Whole Bld POC 24.7 sec (11.1-13.5); ~PT, ~INR - Anti Coag Clinic 2.1 (0.9-1.1)
--- NOTE | 2023-10-30 11:05 | MHC.OFFVISCO ---
Intake Intake Visit Reasons: Anticoagulation Allergies No Known Allergies [No Known Allergies*] Allergy (Verified 10/11/23 13:09) Medication List - Last Reconciled 10/30/23 by Anita Mendez RN amiodarone 100 mg (1/2 x 200 mg) PO DAILY amlodipine 5 mg PO DAILY atorvastatin 20 mg PO DAILY calcium carbonate (Calcium 600) 600 mg PO DAILY erythromycin ophthalmic (eye) metoprolol succinate ER 50 mg PO DAILY raloxifene 60 mg PO DAILY warfarin 2 mg See Protocol PO DAILY Nursing Note INR: 2.1 in therapeutic range Medications and supplements reviewed No changes in health, diet, medications, or supplements, Denies any signs and symptoms of bleeding or bruising or clotting. Bleeding, bruising, clotting discussed Nutritional guidance given - eat foods to help raise the INR Dose: 4MG X 2 DAYS/ 2MG X 5 DAYS F/U INR: 1 month Patient verbalizes understanding of instructions given Anti-Coag Initial Assessment Social Hx Patient Tobacco Use Status: Never used Tobacco alcohol intake: never Coding Level of Care Code Est Patient Level 1 Diagnoses Current use of anticoagulant therapy Z79.01 Results AMB INR Fingerstick AMB INR Fingerstick 2.1 Last Edit by Anita Mendez RN on 10/30/23 11:00 MANUAL ENTRY Assessment & Plan Assessment & Plan (1) Current use of anticoagulant therapy: Code(s): Z79.01 - [facility] (current) use of anticoagulants Category: Medical
== END 2023-10-30 13:47 | disposition home or self-care (01) ==
LOC: HO.ACS 10:46
PROVIDERS: PCP Physician Assistant; Visit Provider Internal Medicine
DX: Z79.01 Long term (current) use of anticoagulants (principal)

== ENCOUNTER → 2023-10-30 10:46 | Outpatient (BNVA) | payer MEDICARE, SELFPAY | PROVIDERS: PCP Physician Assistant; Visit Provider Internal Medicine | DX: I48.0 Paroxysmal atrial fibrillation (principal); Z79.01 Long term (current) use of anticoagulants; Z51.81 Encounter for therapeutic drug level monitoring | CPT/HCPCS: 85610; 99211 ==

== ENCOUNTER 2023-11-27 10:54 | Outpatient (AMB) | payer MEDICARE, SELFPAY ==
[2023-11-27 11:05] LABS: Prothrombin Time Whole Bld POC 23.2 sec (11.1-13.5); ~PT, ~INR - Anti Coag Clinic 1.9 (0.9-1.1)
--- NOTE | 2023-11-27 11:11 | MHC.OFFVISCO ---
Intake Intake Visit Reasons: Anticoagulation Allergies No Known Allergies [No Known Allergies*] Allergy (Verified 11/27/23 10:58) Medication List - Last Reconciled 11/27/23 by Erika Lloyd RN amiodarone 100 mg (1/2 x 200 mg) PO DAILY amlodipine 5 mg PO DAILY atorvastatin 20 mg PO DAILY calcium carbonate (Calcium 600) 600 mg PO DAILY erythromycin ophthalmic (eye) metoprolol succinate ER 50 mg PO DAILY raloxifene 60 mg PO DAILY warfarin 2 mg See Protocol PO DAILY Nursing Note Pt to ACS with use of a cane INR 1.9?out of therapeutic range Medications and supplements reviewed Patient status: usual state of health for pt, no changes Medications or supplements: no changes Diet: usual diet for pt Denies any signs and symptoms of bleeding or clotting or unusual bruising Bleeding, bruising, clotting discussed Nutritional guidance given: to avoid greens today and to have a serving of food from the list that raises the INR. Food list reviewed Dose: 4mg X 2 days (Mon & Th) and 2mg X 5 days F/U INR Date : 12/25/23?? Patient verbalizing understanding of instructions given. Anti-Coag Initial Assessment Social Hx Patient Tobacco Use Status: Never used Tobacco alcohol intake: never Coding Level of Care Code Est Patient Level 1 Diagnoses Current use of anticoagulant therapy Z79.01 Assessment & Plan Assessment & Plan (1) Current use of anticoagulant therapy: Code(s): Z79.01 - [facility] (current) use of anticoagulants Category: Medical
== END 2023-11-27 11:16 | disposition home or self-care (01) ==
LOC: HO.ACS 10:54
PROVIDERS: PCP Physician Assistant; Visit Provider Internal Medicine
DX: Z79.01 Long term (current) use of anticoagulants (principal)

== ENCOUNTER → 2023-11-27 10:54 | Outpatient (BNVA) | payer MEDICARE, SELFPAY | PROVIDERS: PCP Physician Assistant; Visit Provider Internal Medicine | DX: I48.0 Paroxysmal atrial fibrillation (principal); Z79.01 Long term (current) use of anticoagulants; Z51.81 Encounter for therapeutic drug level monitoring | CPT/HCPCS: 85610; 99211 ==

== ENCOUNTER 2023-12-25 10:48 | Outpatient (AMB) | payer MEDICARE, SELFPAY ==
[2023-12-25 11:11] LABS: Prothrombin Time Whole Bld POC 27.6 sec (11.1-13.5); ~PT, ~INR - Anti Coag Clinic 2.3 (0.9-1.1)
--- NOTE | 2023-12-25 11:14 | MHC.OFFVISCO ---
Intake Intake Visit Reasons: Anticoagulation Allergies No Known Allergies [No Known Allergies*] Allergy (Verified 12/25/23 11:06) Medication List - Last Reconciled 12/25/23 by Erika Lloyd RN amiodarone 100 mg (1/2 x 200 mg) PO DAILY amlodipine 5 mg PO DAILY atorvastatin 20 mg PO DAILY calcium carbonate (Calcium 600) 600 mg PO DAILY erythromycin ophthalmic (eye) metoprolol succinate ER 50 mg PO DAILY raloxifene 60 mg PO DAILY warfarin 2 mg See Protocol PO DAILY Nursing Note INR: 2.3 in therapeutic range of 2-3 Medications and supplements reviewed No changes in health, diet, medications, or supplements, Denies any signs and symptoms of bleeding or bruising or clotting. Bleeding, bruising, clotting discussed Nutritional guidance given to continue to balance foods that raise and foods that lower the INR. Dose: 2mg X 5 days and 4mg X 2 days F/U INR: 4 weeks Patient verbalizes understanding of instructions given Anti-Coag Initial Assessment Social Hx Patient Tobacco Use Status: Never used Tobacco alcohol intake: never Coding Level of Care Code Est Patient Level 1 Diagnoses Current use of anticoagulant therapy Z79.01 Assessment & Plan Assessment & Plan (1) Current use of anticoagulant therapy: Code(s): Z79.01 - ro[facility] (current) use of anticoagulants Category: Medical
== END 2023-12-25 11:23 | disposition home or self-care (01) ==
LOC: HO.ACS 10:48
PROVIDERS: PCP Physician Assistant; Visit Provider Internal Medicine
DX: Z79.01 Long term (current) use of anticoagulants (principal)

== ENCOUNTER → 2023-12-25 10:48 | Outpatient (BNVA) | payer MEDICARE, SELFPAY | PROVIDERS: PCP Physician Assistant; Visit Provider Internal Medicine | DX: I48.0 Paroxysmal atrial fibrillation (principal); Z79.01 Long term (current) use of anticoagulants; Z51.81 Encounter for therapeutic drug level monitoring | CPT/HCPCS: 85610; 99211 ==

== ENCOUNTER 2024-01-03 13:24 | Outpatient (AMB) | payer MEDICARE, SELFPAY ==
[2024-01-03 13:41] VITALS: BP 126/68; PULSE 66; O2SAT 96; BMI 19.9
--- NOTE | 2024-01-03 13:41 | AM.OFFVISMDC ---
Intake Vital Signs 01/03/24 13:41 Height 5 ft 5 in Weight 119 lb 8 oz BMI 19.9 BP 126/68 Blood Pressure Location Lt brachial Position Sitting Pulse 66 Pulse Source Pulse Oximeter Pulse Oximetry (%) 96 Oxygen Delivery Method Room Air Intake Visit Reasons: AWV G0438 Intake Note: Patient is here for an Annual Wellness Visit. Wastewater Treatment Supervisor Required: No Accompanied by: Self / Same As Patient Allergies No Known Allergies [No Known Allergies*] Allergy (Verified 01/03/24 15:35) Medication List - Last Reconciled 01/03/24 by Ruben Dick PA-C amiodarone 100 mg (1/2 x 200 mg) PO DAILY amlodipine 5 mg PO DAILY atorvastatin 20 mg PO DAILY calcium carbonate (Calcium 600) 600 mg PO DAILY erythromycin ophthalmic (eye) metoprolol succinate ER 50 mg PO DAILY raloxifene 60 mg PO DAILY warfarin 2 mg See Protocol PO DAILY HPI AWV G0438 HPI Details Patient is an 89-year-old female here today for annual wellness visit. Patient has a past medical history significant for paroxysmal AFib, CKD-4, malignant melanoma, history of breast cancer Today we discussed patient's [place] of care and end of life planning. Does have MOLST form and she is a full code. Also discussed her comprehensive care plan that has been scanned into chart. Vaccines: Up-to-date with COVID, pneumonia and tetanus, considering flu vaccine this fall. Mammogram: Gets mammograms annually, does have personal history of breast cancer twice. Colorectal cancer screening: No further colorectal cancer screening needed .. HPI Comments History of Present Illness Details reviewed past medical history- yes reviewed surgical / hospitalization history- yes reviewed current medications- yes reviewed family history- yes home safety throw rugs? grab bars? raised toilet seat? working smoke detectors? activities of daily living difficulty bathing or showering? difficulty dressing? difficulty using the toilet? difficulty getting in and out of bed? difficulty walking? receives help from other person's with any of the above tasks? instrumental activities of daily living uses telephone - gets to place out of walking distance- go shopping for groceries- repairs own meals- does own minor home maintenance- does own laundry- does own housework- manages own money- currently takes medication- end of life planning discussed advanced directives- yes advanced directives on file? discussed wishes expressed in advanced directives. fall risk have you had any falls with injuries in the past year? have you had 2 or more falls in the past year? fall risk assessment: [facility] Medical History (Updated 01/03/24 @ 14:07 by Ruben Dick PA-C) PAF (paroxysmal atrial fibrillation) Essential hypertension Pulmonary hypertension Non-rheumatic tricuspid stenosis with insufficiency Abnormal myocardial perfusion study Chronic heart failure with preserved ejection fraction (HFpEF) Hiatal hernia Diverticulitis Gastro-esophageal reflux disease without esophagitis High cholesterol Hypertension Atrial fibrillation Surgical History S/P total abdominal hysterectomy History of cardioversion H/O mastectomy Family History Father Heart disease Mother Colon cancer Social History Household Members: None Housing: Apartment Are you a primary rn transitional care to a significant other at home: No Do you presently have visiting nurse or other home services: No Alcohol intake: never Patient Tobacco Use Status: Never used Tobacco e-Cigarette/Vaping Use: Never Used Second Hand Smoke Exposure: No Advance Directives Date on File: 01/16/20 service: No Current occupational status: retired Cognitive needs: No Hearing needs: No Vision needs: No Questionnaire Medicare Wellness Checkup What is your age?: 80 or older What gender do you identify with?: female During the past 4 weeks, how much have you been bothered by emotional problems such as feeling anxious, depressed, irritable, sad or downhearted, and blue?: slightly During the past 4 weeks, has your physical & emotional health limited your social activities with family, friends, neighbors, or groups?: not at all During the past 4 weeks, how much bodily pain have you generally had?: moderate pain During the past 4 weeks, was someone available to help you if you needed & wanted help?: yes, as much as I wanted During the past 4 weeks, what was the hardest physical activity you could do for at least 2 minutes?: moderate Can you get to places out of walking distance without help? (For eg., can you travel alone on buses, taxis or drive your car?): No Can you go shopping for groceries or clothes without someone's help?: Yes Can you prepare your own meals?: Yes Can you do your housework without help?: Yes Because of any health problems, do you need the help of another person with your personal care needs such as eating, bathing, dressing or getting around the house?: No Can you handle your own money without help?: Yes During the past 4 weeks, how would you rate your health in general?: fair During the past 4 weeks how have things been going for you?: pretty well Are you having difficulties driving your car?: no Do you always fasten your seat belt when you are in a car?: yes, usually During past 4 weeks, have you been bothered by the following: never: Sexual problems?, Trouble eating well?, Teeth or denture problems? and Problems using the telephone? and sometimes: Falling or dizzy when standing up and Tiredness or fatigue? Have you fallen 2 or more times in the past year?: No Are you afraid of falling?: Yes Are you a smoker?: no During the past 4 weeks, how many drinks of wine, beer, or other alcoholic beverages did you have?: no alcohol at all Do you exercise for about 20 minutes 3 or more times a week?: yes, most of the time Have you been given information to help with the following?: yes: Keeping track of your medications? and no: Hazards in your house that might hurt you? How often do you have trouble taking medicines the way you have been told to take them?: I always take medicine as prescribed How confident are you that you can control & manage most of your health problems?: very confident What is your race?: White Mini Mental State Exam (MMSE) Orientation What is the (year) (season) (date) (day) (month)?: year Where are we (state) (county) (town or city) (hospital) (floor)?: town or city Attention & Calculation (CHOOSE ONE) Spell WORLD backwards (DLROW): 1 letter Score Score: 3 Activity of Daily Living Bathing - sponge bath, tub bath or shower: receives no assistance (gets in/out by self, if usual bathing means Dressing - getting clothes from closets & drawers, including inner/outer garments & fasteners.: gets clothes & gets completely dressed without help Toileting - going to the 'toilet room' for urine/bowel elimination & cleaning self/arranging clothes: goes to toilet room, cleans self, arranges clothes without help Transfer: moves in & out of bed and chair without help (may use support object) Continence: controls urination/bowel movements completely by self Feeding: feeds self without help Total Score: 0 Information obtained from: patient Using telephone: independent Traveling: independent Shopping: independent Preparing meals: independent Housework: independent Taking medicine: independent Managing money: independent PHQ-9 Over the last 2 weeks, how often have you been bothered by any of the following problems? 1. Little interest or pleasure in doing things: several days 2. Feeling down, depressed, or hopeless: not at all 3. Trouble falling or staying asleep, or sleeping too much: several days 4. Feeling tired or having little energy: several days 5. Poor appetite or overeating: not at all 6. Feeling bad about yourself - or that you are a failure or have let yourself or your family down: not at all 7. Trouble concentrating on things, such as reading the newspaper or watching television: several days 8. Moving or speaking so slowly that other people could have noticed. Or the opposite - being so fidgety or restless that you have been moving around a lot more than usual: several days 9. Thoughts that you would be better off or of hurting yourself in some way: not at all Total score: 5 Depression Screening Interpretation: Positive Depression Screening Follow-up: Existing condition Depression Screening Done: Yes 32275 - PHQ-9 Billing: Yes Source: Developed by Drs. Bandar Lopez, Shell Sahni, Mohinder Tellez and colleagues, with an educational hiram from [employer]. Physical Exam Vital Signs: Last Vital Signs Pulse 66 01/03/24 13:41 BP 126/68 01/03/24 13:41 Pulse Ox 96 01/03/24 13:41 Oxygen Delivery Method Room Air 01/03/24 13:41 BMI result Body Mass Index 19.9 HEENT Other: hearing screening whisper test- failed left side Eyes Other: vision screening- 20 20 Os OD OU Other: urinary incontinence? no Neuro Other: balance Romberg- normal tandem walk test- able walk-in turned test- able rise from sit to stand- within 3 seconds Assessment & Plan Assessment & Plan (1) Annual wellness visit: Code(s): Z00.00 - Encounter for general adult medical examination without abnormal findings Plan: As per HPI Orders: Orders Lipid Panel Today E78.00 - Pure hypercholesterolemia, unspecified Comprehensive [place]. Panel Fast Today N18.4 - Chronic kidney disease, stage 4 (severe) Microalbumin, Random (w Creat) Today N18.4 - Chronic kidney disease, stage 4 (severe) Complete Blood Count no Diff Today I48.0 - Paroxysmal atrial fibrillation Quality Reporting (2019) Depression/Bipolar (159/160/161/177) PHQ-9: Total score: 5 Coding Level of Care Code Medicare Subsequent (G0439) Diagnoses Annual wellness visit Z00.00 CPT Codes Advance Care Planning - Advance Care Planning discussion: On file, no changes ([id number]) Advance Care Planning - Time spent: 1-15 minutes, on File ([id number]) Advance Care Planning Advance Care Planning discussion: On file, no changes Date of discussion: 01/03/24 Forms completed: MOLST Time spent: 1-15 minutes, on File Actual minutes spent: 2
== END 2024-01-03 14:14 | disposition home or self-care (01) ==
PROVIDERS: PCP Physician Assistant; Visit Provider Physician Assistant
DX: Z00.00 Encounter for general adult medical examination without abnormal findings (principal)

== ENCOUNTER → 2024-01-03 13:24 | Outpatient (BNVA) | payer MEDICARE, SELFPAY | PROVIDERS: PCP Physician Assistant; Visit Provider Physician Assistant ==

== ENCOUNTER 2024-01-22 10:43 | Outpatient (AMB) | payer MEDICARE, SELFPAY ==
[2024-01-22 11:10] LABS: Prothrombin Time Whole Bld POC 30.4 sec (11.1-13.5); ~PT, ~INR - Anti Coag Clinic 2.5 (0.9-1.1)
--- NOTE | 2024-01-22 11:15 | MHC.OFFVISCO ---
Intake Intake Visit Reasons: Anticoagulation Allergies No Known Allergies [No Known Allergies*] Allergy (Verified 01/22/24 11:04) Medication List - Last Reconciled 01/22/24 by Anita Mendez RN amiodarone 100 mg (1/2 x 200 mg) PO DAILY amlodipine 5 mg PO DAILY atorvastatin 20 mg PO DAILY calcium carbonate (Calcium 600) 600 mg PO DAILY erythromycin ophthalmic (eye) metoprolol succinate ER 50 mg PO DAILY raloxifene 60 mg PO DAILY warfarin 2 mg See Protocol PO DAILY Nursing Note INR: 2.5 in therapeutic range Medications and supplements reviewed No changes in health, diet, medications, or supplements, Denies any signs and symptoms of bleeding or bruising or clotting. Bleeding, bruising, clotting discussed Nutritional guidance given Dose: 4MG X 2 DAYS/ 2 MG X 5 DAYS F/U INR: 1 MONTH Patient verbalizes understanding of instructions given Anti-Coag Initial Assessment Social Hx Patient Tobacco Use Status: Never used Tobacco alcohol intake: never Coding Level of Care Code Est Patient Level 1 Diagnoses Current use of anticoagulant therapy Z79.01 Assessment & Plan Assessment & Plan (1) Current use of anticoagulant therapy: Code(s): Z79.01 - [facility] (current) use of anticoagulants Category: Medical
== END 2024-01-22 11:17 | disposition home or self-care (01) ==
LOC: HO.ACS 10:43
PROVIDERS: PCP Physician Assistant; Visit Provider Internal Medicine
DX: Z79.01 Long term (current) use of anticoagulants (principal)

== ENCOUNTER → 2024-01-22 10:43 | Outpatient (BNVA) | payer MEDICARE, SELFPAY | PROVIDERS: PCP Physician Assistant; Visit Provider Internal Medicine | DX: I48.0 Paroxysmal atrial fibrillation (principal); Z79.01 Long term (current) use of anticoagulants; Z51.81 Encounter for therapeutic drug level monitoring | CPT/HCPCS: 85610; 99211 ==

== ENCOUNTER 2024-02-19 10:54 | Outpatient (AMB) | payer MEDICARE, SELFPAY ==
--- NOTE | 2024-02-19 10:59 | MHC.OFFVISCO ---
Intake Intake Visit Reasons: Anticoagulation Allergies No Known Allergies [No Known Allergies*] Allergy (Verified 02/19/24 10:56) Medication List - Last Reconciled 02/19/24 by Inocencia Raphael RN amiodarone 100 mg (1/2 x 200 mg) PO DAILY amlodipine 5 mg PO DAILY atorvastatin 20 mg PO DAILY calcium carbonate (Calcium 600) 600 mg PO DAILY erythromycin ophthalmic (eye) metoprolol succinate ER 50 mg PO DAILY raloxifene 60 mg PO DAILY warfarin 2 mg See Protocol PO DAILY Nursing Note INR: 2.3- in therapeutic range of 2-3 Medications and supplements reviewed- no changes No changes in health, diet, medications, or supplements, Denies any signs and symptoms of bleeding or bruising or clotting. Bleeding, bruising, clotting discussed Nutritional guidance given Dose: 2mg x 5, 4mg x 2 F/U INR: 4 weeks Patient verbalizes understanding of instructions given pt amb with cane Anti-Coag Initial Assessment Social Hx Patient Tobacco Use Status: Never used Tobacco alcohol intake: never Coding Level of Care Code Est Patient Level 1 Diagnoses Current use of anticoagulant therapy Z79.01 Assessment & Plan Assessment & Plan (1) Current use of anticoagulant therapy: Code(s): Z79.01 - terminal system operator (current) use of anticoagulants Category: Medical
[2024-02-19 11:00] LABS: Prothrombin Time Whole Bld POC 27.8 sec (11.1-13.5); ~PT, ~INR - Anti Coag Clinic 2.3 (0.9-1.1)
== END 2024-02-19 11:04 | disposition home or self-care (01) ==
LOC: HO.ACS 10:54
PROVIDERS: PCP Physician Assistant; Visit Provider Internal Medicine
DX: Z79.01 Long term (current) use of anticoagulants (principal)

== ENCOUNTER → 2024-02-19 10:54 | Outpatient (BNVA) | payer MEDICARE, SELFPAY | PROVIDERS: PCP Physician Assistant; Visit Provider Internal Medicine | DX: I48.0 Paroxysmal atrial fibrillation (principal); Z79.01 Long term (current) use of anticoagulants; Z51.81 Encounter for therapeutic drug level monitoring | CPT/HCPCS: 85610; 99211 ==

== ENCOUNTER 2024-03-18 13:05 | Outpatient (AMB) | payer MEDICARE, SELFPAY ==
[2024-03-18 13:10] LABS: ~PT, ~INR - Anti Coag Clinic 2.7 (0.9-1.1)
--- NOTE | 2024-03-18 13:15 | MHC.OFFVISCO ---
Intake Intake Visit Reasons: Anticoagulation Allergies No Known Allergies [No Known Allergies*] Allergy (Verified 03/18/24 13:06) Medication List - Last Reconciled 03/18/24 by Erika Lloyd RN amiodarone 100 mg (1/2 x 200 mg) PO DAILY amlodipine 5 mg PO DAILY atorvastatin 20 mg PO DAILY calcium carbonate (Calcium 600) 600 mg PO DAILY erythromycin ophthalmic (eye) metoprolol succinate ER 50 mg PO DAILY raloxifene 60 mg PO DAILY warfarin 2 mg See Protocol PO DAILY Nursing Note INR: 2.7 in therapeutic range of 2-3 Medications and supplements reviewed No changes in health, diet, medications, or supplements, Denies any signs and symptoms of bleeding or bruising or clotting. Bleeding, bruising, clotting discussed Nutritional guidance given Dose: continue same dose of 2mg X 5 days and 4mg X 2 days F/U INR: 4 weeks Patient verbalizes understanding of instructions given Anti-Coag Initial Assessment Social Hx Patient Tobacco Use Status: Never used Tobacco alcohol intake: never Coding Level of Care Code Est Patient Level 1 Diagnoses Current use of anticoagulant therapy Z79.01 Assessment & Plan Assessment & Plan (1) Current use of anticoagulant therapy: Code(s): Z79.01 - [facility] (current) use of anticoagulants Category: Medical
== END 2024-03-18 13:17 | disposition home or self-care (01) ==
LOC: HO.ACS 13:05
PROVIDERS: PCP Physician Assistant; Visit Provider Internal Medicine
DX: Z79.01 Long term (current) use of anticoagulants (principal)

== ENCOUNTER → 2024-03-18 13:05 | Outpatient (BNVA) | payer MEDICARE, SELFPAY | PROVIDERS: PCP Physician Assistant; Visit Provider Internal Medicine | DX: I48.0 Paroxysmal atrial fibrillation (principal); Z79.01 Long term (current) use of anticoagulants; Z51.81 Encounter for therapeutic drug level monitoring | CPT/HCPCS: 85610; 99211 ==

== ENCOUNTER 2024-03-19 13:08 | Outpatient (REF) | payer MEDICARE, SELFPAY ==
--- NOTE | ~2024-03-19 | MM_ITS ---
EXAMINATION: MM SCREENING DIGITAL BREAST TOMOSYNTHESIS, BILATERAL CLINICAL INFORMATION: Screening. Asymptomatic. Remote left mastectomy. History of right breast cancer status post lumpectomy. COMPARISON: Mammography: This study is compared with prior exams dating back to TECHNIQUE: Digital breast tomosynthesis is performed in both the craniocaudal and mediolateral oblique views along with computer-aided detection (CAD). Synthesized 2D images are generated from the tomosynthesis. FINDINGS: There are scattered areas of fibroglandular density (ACR BI-RADS breast composition Category b). Post lumpectomy changes are stable. There are no significant masses, abnormal calcifications, or other abnormalities. MM/MM tomosynthesis screening RT IMPRESSION: No mammographic evidence of malignancy. ASSESSMENT: BI-RADS BI-RADS 2 - Benign Findings RECOMMENDATION: Routine annual mammography screening. 1 year F/U This examination should not preclude the clinical evaluation of a suspicious palpable abnormality. This patient's information was entered into a reminder system with a target due date for their next mammogram. Electronically signed by: Smitha Garcia DO 03/25/2024 04:27 PM [facility]
== END 2024-03-19 13:09 | disposition home or self-care (01) ==
LOC: HO.MAMMO 13:08
PROVIDERS: PCP Physician Assistant; Visit Provider Physician Assistant
DX: Z12.31 Encounter for screening mammogram for malignant neoplasm of breast (principal)
CPT/HCPCS: 77063; 77067

== ENCOUNTER → 2024-03-19 13:30 | Outpatient (BNV) | payer MEDICARE, SELFPAY | PROVIDERS: PCP Physician Assistant; Visit Provider Internal Medicine | DX: Z12.31 Encounter for screening mammogram for malignant neoplasm of breast (principal) | CPT/HCPCS: 77063; 77067 ==

== ENCOUNTER 2024-04-21 12:59 | Outpatient (AMB) | payer MEDICARE, SELFPAY ==
[2024-04-21 13:09] LABS: Prothrombin Time Whole Bld POC 28.4 sec (11.1-13.5); ~PT, ~INR - Anti Coag Clinic 2.4 (0.9-1.1)
--- NOTE | 2024-04-21 13:11 | MHC.OFFVISCO ---
Intake Intake Visit Reasons: Anticoagulation Allergies No Known Allergies [No Known Allergies*] Allergy (Verified 04/21/24 13:04) Medication List - Last Reconciled 04/21/24 by Erika Lloyd RN amiodarone 100 mg (1/2 x 200 mg) PO DAILY amlodipine 5 mg PO DAILY atorvastatin 20 mg PO DAILY calcium carbonate (Calcium 600) 600 mg PO DAILY erythromycin ophthalmic (eye) metoprolol succinate ER 50 mg PO DAILY raloxifene 60 mg PO DAILY warfarin 2 mg See Protocol PO DAILY Nursing Note INR: 2.4 in therapeutic range Medications and supplements reviewed No changes in health, diet, medications, or supplements, Denies any signs and symptoms of bleeding or bruising or clotting. Bleeding, bruising, clotting discussed Nutritional guidance given Dose: 2mg X 5 days and 4mg X 2 days F/U INR: 4 weeks Patient verbalizes understanding of instructions given Anti-Coag Initial Assessment Social Hx Patient Tobacco Use Status: Never used Tobacco alcohol intake: never Coding Level of Care Code Est Patient Level 1 Diagnoses Current use of anticoagulant therapy Z79.01 Assessment & Plan Assessment & Plan (1) Current use of anticoagulant therapy: Code(s): Z79.01 - director long term care (current) use of anticoagulants Category: Medical
== END 2024-04-21 13:13 | disposition home or self-care (01) ==
LOC: HO.ACS 12:59
PROVIDERS: PCP Physician Assistant; Visit Provider Internal Medicine
DX: Z79.01 Long term (current) use of anticoagulants (principal)

== ENCOUNTER → 2024-04-21 12:59 | Outpatient (BNVA) | payer MEDICARE, SELFPAY | PROVIDERS: PCP Physician Assistant; Visit Provider Internal Medicine | DX: I48.0 Paroxysmal atrial fibrillation (principal); Z79.01 Long term (current) use of anticoagulants; Z51.81 Encounter for therapeutic drug level monitoring | CPT/HCPCS: 85610; 99211 ==

== ENCOUNTER 2024-05-19 12:59 | Outpatient (AMB) | payer MEDICARE, SELFPAY ==
--- NOTE | 2024-05-19 13:11 | MHC.OFFVISCO ---
Intake Intake Visit Reasons: Anticoagulation Allergies No Known Allergies [No Known Allergies*] Allergy (Verified 05/19/24 13:04) Medication List - Last Reconciled 05/19/24 by Erika Lloyd RN amiodarone 100 mg (1/2 x 200 mg) PO DAILY amlodipine 5 mg PO DAILY atorvastatin 20 mg PO DAILY calcium carbonate (Calcium 600) 600 mg PO DAILY erythromycin ophthalmic (eye) metoprolol succinate ER 50 mg PO DAILY raloxifene 60 mg PO DAILY warfarin 2 mg See Protocol PO DAILY Nursing Note INR: 2.5 in therapeutic range of 2-3 Medications and supplements reviewed No changes in health, diet, medications, or supplements, Denies any signs and symptoms of bleeding or bruising or clotting. Bleeding, bruising, clotting discussed Nutritional guidance given Dose: continue same dose of 2mg X 5 days and 4mg X 2 days (Mon & ) F/U INR: 4 weeks Patient verbalizes understanding of instructions given Anti-Coag Initial Assessment Social Hx Patient Tobacco Use Status: Never used Tobacco alcohol intake: never Coding Level of Care Code Est Patient Level 1 Diagnoses Current use of anticoagulant therapy Z79.01 Results AMB INR Fingerstick AMB INR Fingerstick 2.5 Last Edit by Erika Lloyd RN on 05/19/24 13:09 interface delay Assessment & Plan Assessment & Plan (1) Current use of anticoagulant therapy: Code(s): Z79.01 - rodent 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
[2024-05-19 13:17] LABS: Prothrombin Time Whole Bld POC 29.6 sec (11.1-13.5); ~PT, ~INR - Anti Coag Clinic 2.5 (0.9-1.1)
--- OUTSIDE RECORDS SUMMARY | 2024-05-19 14:17 | XMS_ITS | Clinical Summary ---
Author Organization [facility] Address [address] [place] [address] [address] [place] [id number] Phone Care Team Providers Care Umbrella Supervisor Name Role Phone Ruben Dick Primary Care Provider [phone] Allergies No known active allergies Medications amiodarone (PACERONE) 100 MG tablet Take 100 mg by mouth 1 (one) time each day Active atorvastatin (LIPITOR) 20 MG tablet Take 20 mg by mouth 1 (one) time each day Active Calcium Carbonate-Vit D-Min (CALCIUM 1200 PO) Take 1,200 mg by mouth 1 (one) time each day Active omeprazole (PriLOSEC) [address] capsule Take 20 mg by mouth 1 (one) time each day Do not crush or chew. Active raloxifene (EVISTA) 60 MG tablet Take 60 mg by mouth 1 (one) time each day Active warfarin (COUMADIN) 4 MG tablet Take 4 mg by mouth 1 (one) time each day Take as directed per After Visit Summary. Active amLODIPine (NORVASC) 5 MG tablet Take 5 mg by mouth 1 (one) time each day 10/30/2022 Active metoprolol succinate XL (TOPROL XL) 50 MG 24 hr tablet Take 50 mg by mouth 1 (one) time each day 08/28/2022 Active Active Problems Problem Noted Date Diagnosed Date Chronic kidney disease 09/13/2021 Family History Medical History Relation Comments Heart disease Father Cancer Mother Colon Relation Status Comments Father Mother Social History Tobacco Use Types Packs/Day Years Used Date Smoking Tobacco: Never Smokeless Tobacco: Never Tobacco Cessation:Counseling Given: Not Answered Alcohol Use Standard Drinks/Week Comments Never 0 (1 standard drink = 0.6 oz pur e alcohol) Comments Unknown Sex and Gender Information Value Date Recorded Sex Assigned at Not on file Legal Sex Female 4:17 PM EDT Gender Identity Not on file Sexual Orientation Not on file Last Filed Vital Signs Vital Sign Reading Time Taken Comments Blood Pressure 140/90 11/23/2022 1:51 PM EDT Pulse 71 11/23/2022 1:51 PM EDT Temperature - - Respiratory Rate - - Oxygen Saturation 96% 05/25/2022 1:28 PM EST Inhaled Oxygen Concentration - - Weight 53.4 kg (117 lb 12.8 oz) 11/23/2022 1:51 PM EDT Height - - Body Mass Index - - Plan of Treatment Health Maintenance Due Date Last Done Comments Pneumococcal Vaccine: 65+ Ye ars (1 of 2 - PCV) 12/31/1940 Influenza Vaccine (#1) 2023 Hepatitis B Vaccine Aged Out No longe r eligible based on patient's age to complete this topic Insurance [facility] Care Teams Umbrella Supervisor Relationship Specialty Start Date End Date Ruben Dick PA [address] [facility], [address] [place] [address] PCP - General Physician Change Over 07/19/21
== END 2024-05-19 13:13 | disposition home or self-care (01) ==
LOC: HO.ACS 12:59
PROVIDERS: PCP Physician Assistant; Visit Provider Internal Medicine
DX: Z79.01 Long term (current) use of anticoagulants (principal)

== ENCOUNTER → 2024-05-19 12:59 | Outpatient (BNVA) | payer MEDICARE, SELFPAY | PROVIDERS: PCP Physician Assistant; Visit Provider Internal Medicine | DX: I48.0 Paroxysmal atrial fibrillation (principal); Z79.01 Long term (current) use of anticoagulants; Z51.81 Encounter for therapeutic drug level monitoring | CPT/HCPCS: 85610; 99211 ==

== ENCOUNTER 2024-06-16 13:02 | Outpatient (AMB) | payer MEDICARE, SELFPAY ==
[2024-06-16 13:08] LABS: Prothrombin Time Whole Bld POC 28.6 sec (11.1-13.5); ~PT, ~INR - Anti Coag Clinic 2.4 (0.9-1.1)
--- NOTE | 2024-06-16 13:09 | MHC.OFFVISCO ---
Intake Intake Visit Reasons: Anticoagulation Allergies No Known Allergies [No Known Allergies*] Allergy (Verified 06/16/24 13:03) Medication List - Last Reconciled 06/16/24 by Erika Lloyd RN amiodarone 100 mg (1/2 x 200 mg) PO DAILY amlodipine 5 mg PO DAILY atorvastatin 20 mg PO DAILY calcium carbonate (Calcium 600) 600 mg PO DAILY erythromycin ophthalmic (eye) metoprolol succinate ER 50 mg PO DAILY raloxifene 60 mg PO DAILY warfarin 2 mg See Protocol PO DAILY Nursing Note INR: 2.4 in therapeutic range of 2-3 Medications and supplements reviewed No changes in health, diet, medications, or supplements, Denies any signs and symptoms of bleeding or bruising or clotting. 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
--- OUTSIDE RECORDS SUMMARY | 2024-06-16 15:16 | XMS_ITS | Clinical Summary ---
Author Organization [facility] Address [address] [place] [address] [address] [place] [id number] Phone Care Team Providers Care Polls Or Surveys Interviewer Name Role Phone Ruben Dick Primary Care Provider [phone] Allergies No known active allergies Medications amiodarone [...] patient's age to complete this topic Insurance [facility] Care Teams Polls Or Surveys Interviewer Relationship Specialty Start Date End Date Ruben Dcik PA [address] [facility], [address] [place] [address] PCP - General Physician Specialist Managers 07/19/21
== END 2024-06-16 13:12 | disposition home or self-care (01) ==
LOC: HO.ACS 13:02
PROVIDERS: PCP Physician Assistant; Visit Provider Internal Medicine
DX: Z79.01 Long term (current) use of anticoagulants (principal)

== ENCOUNTER → 2024-06-16 13:02 | Outpatient (BNVA) | payer MEDICARE, SELFPAY | PROVIDERS: PCP Physician Assistant; Visit Provider Internal Medicine | DX: I48.0 Paroxysmal atrial fibrillation (principal); Z79.01 Long term (current) use of anticoagulants; Z51.81 Encounter for therapeutic drug level monitoring | CPT/HCPCS: 85610; 99211 ==

== ENCOUNTER 2024-06-24 10:29 | Outpatient (REF) | payer MEDICARE, SELFPAY ==
[2024-06-24 11:00] LABS: MANUAL DIFF FLAG NO
[2024-06-24 11:59] LABS: Basophils Absolute Auto 0.1 X10*3/uL (0.0-0.2); Basophils Percent Auto 1.1 % (0-2); Eosinophils Absolute Auto 0.2 X10*3/uL (0.0-0.4); Eosinophils Percent Auto 2.3 % (0-4); Hematocrit 44.9 % (37.0-47.0); Hemoglobin 14.8 g/dl (12.0-16.0); Imm Gran Abs Auto 0.08 X10*3/uL (0.00-0.03); Imm Gran Pct Auto 1.2 % (0.0-0.4); Lymphocytes Absolute Auto 2.1 X10*3/uL (1.2-4.9); Lymphocytes Percent Auto 32.8 % (20-40); Mean Corpuscular Hemoglobin 32.2 pg (27.0-33.0); Mean Corpuscular Volume 97.6 fL (80.0-98.0); Mean Platelet Volume 9.6 fL (9.4-12.3); Monocytes Absolute Auto 0.7 X10*3/uL (0.1-1.2); Monocytes Percent Auto 10.9 % (2-11); Neutrophils Absolute Auto 3.4 x10*3/uL (2.0-8.3); Neutrophils Percent Auto 51.7 % (45-73); Platelet Count 181 X10*3/uL (160-400); Red Cell Distribution Width 13.8 % (11.0-16.0); White Blood Count 6.5 X10*3/uL (4.8-10.8)
[2024-06-24 12:30] LABS: Parathyroid Hormone Intact 206.3 pg/mL (8.7-77.1)
--- OUTSIDE RECORDS SUMMARY | 2024-06-24 12:33 | XMS_ITS | Clinical Summary ---
Author Organization [facility] Address [address] [place] [address] Phone Care Team Providers Care Desk Officer Name Role Phone Ruben Dick Primary Care Provider Allergies No known active allergies Medications amiodarone [...] patient's age to complete this topic Insurance [facility] Care Teams Desk Officer Relationship Specialty Start Date End Date Ruben Dick PA [address] [facility], [address] [place] [address] PCP - General Physician Salon Assistant 07/19/21
[2024-06-24 12:56] LABS: Alanine Aminotransferase 26 U/L (0-31); Albumin Level 4.3 g/dL (3.5-5.0); Alkaline Phosphatase 78 U/L (39-117); Anion Gap 13 (12-20); Aspartate Amino Transferase 36 U/L (5-31); Blood Urea Nitrogen 29 mg/dL (9-16); Calcium 9.5 mg/dL (8.4-10.2); Carbon Dioxide 22 mmol/L (22-29); Chloride 113 mmol/L (96-108); Estimated Glomerular Filt Rate 31; Glucose Random 113 mg/dL (60-115); Potassium 4.1 mmol/L (3.3-5.1); Sodium 144 mmol/L (135-145); Total Protein 7.7 g/dL (6.5-8.0)
[2024-06-24 13:51] LABS: Alanine Aminotransferase 26 U/L (0-31); Albumin Level 4.2 g/dL (3.5-5.0); Alkaline Phosphatase 76 U/L (39-117); Anion Gap 14 (12-20); Aspartate Amino Transferase 37 U/L (5-31); Blood Urea Nitrogen 29 mg/dL (9-16); Calcium 9.7 mg/dL (8.4-10.2); Carbon Dioxide 21 mmol/L (22-29); Chloride 113 mmol/L (96-108); Cholesterol 135 mg/dL (<200); Estimated Glomerular Filt Rate 30; Glucose Fasting 112 mg/dL (60-99); HDL Cholesterol 59 mg/dL (>40); LDL Cholesterol Calculated 58 mg/dL (<100); Potassium 4.1 mmol/L (3.3-5.1); Sodium 144 mmol/L (135-145); Total Protein 7.7 g/dL (6.5-8.0); Triglycerides 90 mg/dL (<150)
[2024-06-26 11:49] LABS: Prot Elec - Albumin 4.2 g/dL (3.8-4.8); Prot Elec - Alpha1 0.2 g/dL (0.2-0.3); Prot Elec - Alpha2 0.9 g/dL (0.5-0.9); Prot Elec - Beta 1 0.4 g/dL (0.4-0.6); Prot Elec - Beta 2 0.3 g/dL (0.2-0.5); Prot Elec - Gamma 1.1 g/dL (0.8-1.7); Prot Elec - Total Protein 7.1 g/dL (6.1-8.1)
== END 2024-06-24 10:30 | disposition home or self-care (01) ==
LOC: HO.LAB 10:29
PROVIDERS: Absent Provider Internal Medicine Hypertension Specialist; PCP Physician Assistant; Visit Provider Physician Assistant
DX: E78.00 Pure hypercholesterolemia, unspecified (principal); N18.4 Chronic kidney disease, stage 4 (severe)
CPT/HCPCS: 36415; 80053; 80061; 83970; 84100; 84165; 85025

== ENCOUNTER 2024-07-02 14:06 | Outpatient (AMB) | payer MEDICARE, SELFPAY ==
[2024-07-02 14:08] VITALS: BP 118/68; PULSE 74; TEMP 36.2; O2SAT 96; BMI 19.1
--- NOTE | 2024-07-02 14:08 | MHC.PC.OV ---
Vital Signs 07/02/24 14:08 Height 5 ft 5 in Weight 115 lb BMI 19.1 BP 118/68 Blood Pressure Location Lt brachial Position Sitting Pulse 74 Pulse Source Pulse Oximeter Temp 97.1 F Temp Source Temporal Artery Scan Pulse Oximetry (%) 96 Oxygen Delivery Method Room Air Intake Visit Reasons: f/u labs, AFib, hypertension Base Loader Required: No Accompanied by: niece Allergies No Known Allergies [No Known Allergies*] Allergy (Verified 07/02/24 14:36) Medication List - Last Reconciled 07/02/24 by Ruben Dick PA-C amiodarone 100 mg (1/2 x 200 mg) PO DAILY amlodipine 5 mg PO DAILY atorvastatin 20 mg PO DAILY calcium carbonate (Calcium 600) 600 mg PO DAILY erythromycin ophthalmic (eye) metoprolol succinate ER 50 mg PO DAILY raloxifene 60 mg PO DAILY warfarin 2 mg See Protocol PO DAILY Tobacco use date assessed: 07/02/24 Dental Screening Dental Screen Date: 06/28/23 HPI f/u labs, AFib, hypertension HPI Details Patient is an 89-year-old female here today for a follow-up visit. Patient has a past medical history significant for paroxysmal AFib, CKD-4, malignant melanoma, history of breast cancer Concern--> family somewhat concerned about patient's balance, she does report nearly falling a few times. Does use a cane for ambulation. She is open to the idea of using a Rollator walker to reduce falls. Family is considering getting a stair chair installed in home. She also reports a chronic runny nose. Has not tried any nasal sprays at this point. .. Paroxysmal AFib:? Patient is followed by Cardiology, denies any overt signs of bleeding. She continues on rhythm control with amiodarone. She feels she has some dizziness and unsteadiness on her feet due to the medication. She continues on anticoagulation with warfarin her INRs has been fairly stable between 2 and 3. She denies any overt signs of bleeding. . CKD stage 4:? Patient now followed by Nephrology. most recent creatinine at 1.61? She does have microalbuminuria.? She does report she has a hard time keeping hydrated with free fluids. Recently found to have kidney cysts. Reviewed most recent labs and noted slightly elevated calcium and elevated parathyroid hormone. Laboratory Tests 08/07/23 06/24/24 14:56 10:59 RBC 4.60 Creatinine 1.52 H 1.61 H Fasting Glucose 112 H PTH Intact 206.3 H PFSH Medical History (Updated 07/03/24 @ 08:08 by Ruben Dick PA-C) PAF (paroxysmal atrial fibrillation) Essential hypertension Pulmonary hypertension Non-rheumatic tricuspid stenosis with insufficiency Abnormal myocardial perfusion study Chronic heart failure with preserved ejection fraction (HFpEF) Hiatal hernia Diverticulitis Gastro-esophageal reflux disease without esophagitis High cholesterol Hypertension Atrial fibrillation Surgical History S/P total abdominal hysterectomy History of cardioversion H/O mastectomy Family History Father Heart disease Mother Colon cancer Social History Household Members: None Housing: Apartment Are you a primary managed care liaison to a significant other at home: No Do you presently have visiting nurse or other home services: No Alcohol intake: never Patient Tobacco Use Status: Never used Tobacco e-Cigarette/Vaping Use: Never Used Second Hand Smoke Exposure: No Advance Directives Date on File: 01/16/20 service: No Current occupational status: retired Cognitive needs: No Hearing needs: No Vision needs: No Questionnaire PHQ-9 Over the last 2 weeks, how often have you been bothered by any of the following problems? 1. Little interest or pleasure in doing things: not at all 2. Feeling down, depressed, or hopeless: not at all 3. Trouble falling or staying asleep, or sleeping too much: not at all 4. Feeling tired or having little energy: not at all 5. Poor appetite or overeating: not at all 6. Feeling bad about yourself - or that you are a failure or have let yourself or your family down: not at all 7. Trouble concentrating on things, such as reading the newspaper or watching television: not at all 8. Moving or speaking so slowly that other people could have noticed. Or the opposite - being so fidgety or restless that you have been moving around a lot more than usual: not at all 9. Thoughts that you would be better off or of hurting yourself in some way: not at all Total score: 0 Depression Screening Interpretation: Negative Depression Screening Done: Yes 33776 - PHQ-9 Billing: Yes Source: Developed by Drs. Bandar Lopez, Mohinder Charlton and colleagues, with an educational hiram from [employer]. Thrive Questionnaire Date Thrive assessed: 07/02/24 I am a: Patient What is your living situation today?: I have a steady place to live Within the past 12 months, did the food you bought not last and you didn't have the money to get more?: Never true Within the past 12 months, did you worry whether your food would run out before you got money to buy more?: Never true Do you have trouble paying for medicines?: No Do you have trouble getting transportation to medical appointments?: No Do you have trouble paying your heating and electricity bill?: No Do you have trouble taking care of your child, family member or friend?: No Do you have trouble with day-to-day activities such as bathing, preparing meals, shopping, managing finances, etc.?: No Are you currently unemployed and looking for a job?: No Are you interested in more education?: No Please select the resources that you would like help with: None Currently or been in a relationship where the following occur: No concerns reported THRIVE Score: 0 AUDIT C Alcohol Use Questionnaire (AUDIT-C) 1. How often do you have a drink containing alcohol?: Never 3. How often do you have six or more drinks on one occasion?: Never Total Score: 0 ANGEL-7 AMB Questionnaire ANGEL-7 Date ANGEL - 7 assessed: 07/02/24 Feeling nervous, anxious, or on edge: 0 = Not at all Not being able to stop or control worryin = Not at all Worrying too much about different things: 0 = Not at all Trouble relaxin = Not at all Being so restless that it is hard to sit still: 0 = Not at all Becoming easily annoyed or irritable: 0 = Not at all Feeling afraid as if something awful might happen: 0 = Not at all Total ANGEL-7 score (0-4 normal; 5-9 mild; 10-14 moderate; 15-21 severe): 0 Source: Developed by Shell Jimenez Bora, Mohinder Tellez and colleagues, with an educational hiram from [employer]. ANGEL-7 Assessment Billing ANGEL-7 Assessment Tool: ANGEL-7 Assessment 45284 Review of Systems Const Denies headache(s) Eyes Denies loss of vision ENT Denies vertigo, Denies dizziness, Denies headache(s) and Denies sore throat Card Denies chest pain, Denies leg edema and Denies lightheadedness Resp Denies cough, Denies hemoptysis and Denies wheezing GI Denies abdominal pain, Denies melena, Denies constipation, Denies diarrhea and Denies vomiting Denies urinary frequency, Denies dysuria and Denies urinary urgency Musc Denies arthralgias, Denies joint swelling, Denies numbness and Denies tingling Neuro Denies Abnormal speech present, Denies behavioral changes, Denies vertigo, Denies dizziness, Denies headache(s), Denies loss of vision, Denies memory loss, Denies numbness and Denies tingling Psych Denies anxiety, Denies behavioral changes, Denies depression, Denies memory loss and Denies panic attacks Zach/Lymph Denies easy bleeding and Denies easy bruising Aller/Immun Denies wheezing Physical exam (Primary Care) Vital Signs: Last Vital Signs Temp 97.1 F 07/02/24 14:08 Pulse 74 07/02/24 14:08 BP 118/68 07/02/24 14:08 Pulse Ox 96 07/02/24 14:08 Oxygen Delivery Method Room Air 07/02/24 14:08 BMI result Body Mass Index 19.1 Tobacco/Smoking Status: Tobacco use Status Tobacco use date assessed 07/02/24 07/02/24 14:16 Patient Tobacco Use Status Never used Tobacco 07/02/24 14:16 e-Cigarette/Vaping Use Never Used 07/02/24 14:16 PHQ-9: PHQ-9 Score PHQ-9: Total score 0 07/02/24 14:39 Depression Screening Interpretation: Negative Thrive Assessment: Date of Thrive Assessment Date Thrive assessed 07/02/24 07/02/24 14:16 Currently or been in a relationship where the following occur: No concerns reported Const General: healthy appearing, no acute distress, alert and awake Nutritional Appearance: well nourished Orientation/consciousness: oriented to person, oriented to place and oriented to time HENNV Ears: TM's normal bilaterally General nose exam: Normal nasal mucous membranes and turbinates present Eyes Conjunctivae: conjunctivae normal Sclerae: sclerae normal Pupils: Equal, round and reactive pupils present Neck Neck: Yes no lymphadenopathy and Yes no JVD Thyroid: Thyroid normal Carotids: no bruits Chest Chest/axillae images: 1. HEART IMMOBILE PALPABLE LUMP NOTED ON THE RIGHT SIDE OF STERNUM Resp Effort & Inspection: normal respiratory effort and not tachypneic Auscultation: no crackles, no rales, no rhonchi and no wheezes Cardio Rate: regular rate Rhythm: regular rhythm Heart sounds: no murmurs and normal S1 and S2 GI Palpation (GI): Soft to palpation, nontender, no hepatomegaly and no splenomegaly Auscultation: normal bowel sounds Skin General skin exam: no rashes or lesions noted and dry skin Neuro General: oriented to person, oriented to place and oriented to time Cranial nerves: Yes Equal, round and reactive pupils present Speech: No Abnormal speech present Gait exam (Neuro): Normal gait present Motor exam (neuro): no tremor noted Extrem Right upper extremity: full ROM Left upper extremity: full ROM Right lower extremity: full ROM; no edema Left lower extremity: full ROM; no edema Psych Mental Status: mental status grossly normal Speech and movement: Normal speech and movement present Affect: normal affect Attitude: cooperative Thought process: Normal thought process present Coding Level of Care Code Est Pt Level 4 (55926) Diagnoses Primary hypertension I10 Hypertension type: primary hypertension PAF (paroxysmal atrial fibrillation) I48.0 CKD (chronic kidney disease) stage 4, GFR 15-29 ml/min N18.4 Lump of rib M89.9 Additional Codes ANGEL-7 Assessment Billing - ANGEL-7 Assessment Tool: ANGEL-7 Assessment 42098 ([id number]) PHQ-9 - 32300 - PHQ-9 Billing: Yes ([id number]) Assessment & Plan Assessment & Plan (1) Hypertension: Code(s): I10 - Essential (primary) hypertension Category: Medical Qualifiers: Hypertension type: primary hypertension Qualified Code(s): I10 - Essential (primary) hypertension Plan: Patient's blood pressure stable today in office. She does report feeling dizzy at times and unstable while walking. Will discontinue her amlodipine for now and continue monitoring her blood pressure to reduce any occurrence of hypotension. Goal blood pressures to be below 140/90 and above 100/60. (2) PAF (paroxysmal atrial fibrillation): Code(s): I48.0 - Paroxysmal atrial fibrillation Category: Medical Plan: Patient continues to follow cardiology. Continues on anticoagulation without any overt signs of bleeding. INRs have been fairly stable. She is under rate control and rhythm control with both metoprolol and amiodarone. 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 Will avoid any nephrotoxins. Does follow a [facility]. (4) Lump of rib: Code(s): M89.9 - Disorder of bone, unspecified Category: Medical Plan: Noted concerning lump over right side ribs. Will send for chest x-ray to evaluate for lytic lesion as patient has had history of breast cancer and melanoma. Orders: Orders Complete Blood Count no Diff 07/02/24 N18.4 - Chronic kidney disease, stage 4 (severe) Lipid Panel 07/02/24 E78.00 - Pure hypercholesterolemia, unspecified XR chest 2V 07/02/24 M89.9 - Disorder of bone, unspecified Comprehensive [facility]. Panel Fast 07/02/24 N18.4 - Chronic kidney disease, stage 4 (severe) Referrals Orthopedics Referral M17.11 - Unilateral primary osteoarthritis, right knee Medications: New azelastine administer into each nostril 1 spray intranasal BID 30 days 30 mL 1RF J30.9 - Allergic rhinitis, unspecified, M17.11 - Unilateral primary osteoarthritis, right knee walker (Ultra-Light [facility] [place]) As directed 1 ea 0RF M17.11 - Unilateral primary osteoarthritis, right knee Refilled metoprolol succinate ER 50 mg PO DAILY 90 tabs 1RF raloxifene 60 mg PO DAILY 90 tabs 4RF On Hold amlodipine Hold Comment: Doctor's Order 5 mg PO DAILY 90 tabs 2RF I10 - Essential (primary) hypertension
--- OUTSIDE RECORDS SUMMARY | 2024-07-02 16:28 | XMS_ITS | Clinical Summary ---
Author Organization [facility] Address [address] [place] [address] Phone Care Team Providers Care Reporting Manager Name Role Phone Ruben Dick Primary Care Provider [phone] Allergies No known active allergies Medications amiodarone [...] patient's age to complete this topic Insurance [facility] Care Teams Reporting Manager Relationship Specialty Start Date End Date Ruben Dick PA [address] [facility], [address] [place] [address] PCP - General Physician Metal Shaping Machine Operator 07/19/21
== END 2024-07-02 15:16 | disposition home or self-care (01) ==
LOC: HO.HMCH 14:07
PROVIDERS: PCP Physician Assistant; Visit Provider Physician Assistant
DX: I12.9 Hypertensive chronic kidney disease with stage 1 through stage 4 chronic kidney disease, or unspecified chronic kidney disease (principal); I48.0 Paroxysmal atrial fibrillation; N18.4 Chronic kidney disease, stage 4 (severe); M89.9 Disorder of bone, unspecified

== ENCOUNTER → 2024-07-02 14:06 | Outpatient (BNVA) | payer MEDICARE, SELFPAY | PROVIDERS: PCP Physician Assistant; Visit Provider Physician Assistant | DX: I12.9 Hypertensive chronic kidney disease with stage 1 through stage 4 chronic kidney disease, or unspecified chronic kidney disease (principal); N18.4 Chronic kidney disease, stage 4 (severe); I48.0 Paroxysmal atrial fibrillation; M89.9 Disorder of bone, unspecified | CPT/HCPCS: 96127; 99212 ==

== ENCOUNTER 2024-07-08 11:45 | Outpatient (REF) | payer MEDICARE, SELFPAY ==
--- NOTE | ~2024-07-08 | XR_ITS ---
EXAMINATION: XR CHEST 2 VIEWS HISTORY: M89.9 - Disorder of bone, unspecified COMPARISON: Comparison is made with the prior examination dated 02/12/2020. FINDINGS: PA and lateral views of the chest are submitted. The lungs are expanded and clear. There is no pleural effusion, pneumothorax, or pulmonary vascular congestion. The heart is normal in size. There is a large hiatal hernia. The bones are intact. There are surgical clips in both axillae. XR/XR chest 2V IMPRESSION: Large hiatal hernia. No acute cardiopulmonary abnormality. If further evaluation of a chest wall abnormality is desired, CT is recommended. Electronically signed by: Bandar Clay MD 07/09/2024 08:47 AM EDT
== END 2024-07-08 11:46 | disposition home or self-care (01) ==
LOC: HO.XRAY 11:45
PROVIDERS: Absent Provider Physician Assistant; PCP Physician Assistant; Visit Provider Internal Medicine Hypertension Specialist
DX: K44.9 Diaphragmatic hernia without obstruction or gangrene (principal); M89.9 Disorder of bone, unspecified; I12.9 Hypertensive chronic kidney disease with stage 1 through stage 4 chronic kidney disease, or unspecified chronic kidney disease; N18.4 Chronic kidney disease, stage 4 (severe)
CPT/HCPCS: 71046; 99212

== ENCOUNTER 2024-07-08 11:45 | Outpatient (AMB) | payer MEDICARE, SELFPAY ==
--- NOTE | 2024-07-08 11:48 | HO.NEPHOV ---
Vital Signs 07/08/24 11:49 Height 5 ft 5 in Weight 116 lb BMI 19.3 BP 112/70 Blood Pressure Location Lt brachial Position Sitting Pulse 89 Pulse Source Pulse Oximeter Pulse Oximetry (%) 95 Oxygen Delivery Method Room Air Intake Visit Reasons: 1 Year/ Conf Dental Office Receptionist Required: No Accompanied by: daughter in law Allergies No Known Allergies [No Known Allergies*] Allergy (Verified 07/08/24 11:52) Medication List - Last Reconciled 07/08/24 by Santana Segovia MD amiodarone 100 mg (1/2 x 200 mg) PO DAILY amlodipine 5 mg PO DAILY atorvastatin 20 mg PO DAILY azelastine 1 spray intranasal BID 30 days calcium carbonate (Calcium 600) 600 mg PO DAILY erythromycin ophthalmic (eye) metoprolol succinate ER 50 mg PO DAILY omeprazole 20 mg PO DAILY PRN raloxifene 60 mg PO DAILY walker (Ultra-Light Rollator misc) As directed warfarin 2 mg See Protocol PO DAILY HPI Comments Details: 89 yr old woman with HTN , A fib and CKD Here for follow up 07/08/24 h/o runny nose [facility] Medical History (Updated 07/03/24 @ 08:08 by Ruben Dick PA-C) PAF (paroxysmal atrial fibrillation) Essential hypertension Pulmonary hypertension Non-rheumatic tricuspid stenosis with insufficiency Abnormal myocardial perfusion study Chronic heart failure with preserved ejection fraction (HFpEF) Hiatal hernia Diverticulitis Gastro-esophageal reflux disease without esophagitis High cholesterol Hypertension Atrial fibrillation Surgical History S/P total abdominal hysterectomy History of cardioversion H/O mastectomy Family History Father Heart disease Mother Colon cancer Social History Household Members: None Housing: Apartment Are you a primary health care marketing manager to a significant other at home: No Do you presently have visiting nurse or other home services: No Alcohol intake: never Patient Tobacco Use Status: Never used Tobacco e-Cigarette/Vaping Use: Never Used Second Hand Smoke Exposure: No Advance Directives Date on File: 01/16/20 service: No Current occupational status: retired Cognitive needs: No Hearing needs: No Vision needs: No Physical Exam Vital Signs: Last Vital Signs Pulse 89 07/08/24 11:49 BP 112/70 07/08/24 11:49 Pulse Ox 95 07/08/24 11:49 Oxygen Delivery Method Room Air 07/08/24 11:49 BMI result Body Mass Index 19.3 Results Reviewed Nephrology Results: Hgb 14.8 g/dl (12.0-16.0) 06/24/24 WBC 6.5 X10*3/uL (4.8-10.8) 06/24/24 Plt Count 181 X10*3/uL (160-400) 06/24/24 Sodium 144 mmol/L (135-145) 06/24/24 Potassium 4.1 mmol/L (3.3-5.1) 06/24/24 Chloride 113 mmol/L (96-108) H 06/24/24 Carbon Dioxide 21 mmol/L (22-29) L 06/24/24 BUN 29 mg/dL (9-16) H 06/24/24 Creatinine 1.61 mg/dL (0.5-1.4) H 06/24/24 Calcium 9.7 mg/dL (8.4-10.2) 06/24/24 Phosphorus 3.0 mg/dL (2.7-4.5) 06/24/24 PTH Intact 206.3 pg/mL (8.7-77.1) H 06/24/24 Assessment & Plan Assessment & Plan (1) Hypertension: Code(s): I10 - Essential (primary) hypertension Category: Medical Qualifiers: Hypertension type: primary hypertension Qualified Code(s): I10 - Essential (primary) hypertension Plan: BP acceptable Stay on low salt diet No changes in meds (2) CKD (chronic kidney disease) stage 4, GFR 15-29 ml/min: 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
[2024-07-08 11:49] VITALS: BP 112/70; PULSE 89; O2SAT 95; BMI 19.3
--- OUTSIDE RECORDS SUMMARY | 2024-07-08 14:35 | XMS_ITS | Clinical Summary ---
Author Organization [facility] Address [address] [place] [address] Phone Care Team Providers Care Sign Hanger Supervisor Name Role Phone Ruben Dick Primary Care Provider [phone] Allergies No known active allergies Medications amiodarone [...] patient's age to complete this topic Insurance [facility] Care Teams Sign Hanger Supervisor Relationship Specialty Start Date End Date Ruben Dick PA [address] [facility], [address] [place] [address] PCP - General Physician Semiconductor Packages Tester 07/19/21
== END 2024-07-08 12:06 | disposition home or self-care (01) ==
LOC: HO.HKA 11:46
PROVIDERS: PCP Physician Assistant; Visit Provider Internal Medicine Hypertension Specialist
DX: I12.9 Hypertensive chronic kidney disease with stage 1 through stage 4 chronic kidney disease, or unspecified chronic kidney disease (principal); N18.4 Chronic kidney disease, stage 4 (severe)
CPT/HCPCS: 99214

== ENCOUNTER → 2024-07-08 12:38 | Outpatient (BNV) | payer MEDICARE, SELFPAY | PROVIDERS: Absent Provider Physician Assistant; PCP Physician Assistant; Visit Provider Radiology Diagnostic Radiology | DX: R07.9 Chest pain, unspecified (principal); M89.9 Disorder of bone, unspecified | CPT/HCPCS: 71046 ==

== ENCOUNTER 2024-07-14 13:00 | Outpatient (AMB) | payer MEDICARE, SELFPAY ==
[2024-07-14 13:20] LABS: Prothrombin Time Whole Bld POC 27.9 sec (11.1-13.5); ~PT, ~INR - Anti Coag Clinic 2.3 (0.9-1.1)
--- NOTE | 2024-07-14 13:25 | MHC.OFFVISCO ---
Intake Intake Visit Reasons: Anticoagulation Allergies No Known Allergies [No Known Allergies*] Allergy (Verified 07/14/24 13:03) Medication List - Last Reconciled 07/14/24 by Anita Mendez RN amiodarone 100 mg (1/2 x 200 mg) PO DAILY amlodipine 5 mg PO DAILY atorvastatin 20 mg PO DAILY azelastine 1 spray intranasal BID 30 days calcium carbonate (Calcium 600) 600 mg PO DAILY metoprolol succinate ER 50 mg PO DAILY omeprazole 20 mg PO DAILY PRN raloxifene 60 mg PO DAILY walker (Ultra-Light Rollator [place]) As directed warfarin 2 mg See Protocol PO DAILY Nursing Note pt coming with brother walking with cane- waiting for knee injection 08/14/2024- states the [address] is a long walk for her she was enc to let us know we could meet her at the door with wheel chair. She is going to try a walker to help. She and her brother are looking into possible switch to DOAC. Or maybe a hoe lab draw if needed. appears frail - she stated all her lab work was good with recent PCP visit. INR: 2.3 in therapeutic range Medications and supplements reviewed No changes in health, diet, medications, or supplements, Denies any signs and symptoms of bleeding or bruising or clotting. Bleeding, bruising, clotting discussed Nutritional guidance given Dose: 4mg x 2 days/2mg x 5 dys F/U INR: 1 month Patient verbalizes understanding of instructions given Anti-Coag Initial Assessment Social Hx Patient Tobacco Use Status: Never used Tobacco alcohol intake: never Questionnaires HAS-BLED Does the patient had uncontrolled Hypertension?: No Does the patient have renal disease?: Yes Does the patient have liver disease?: No Does the patient have a history of stroke?: No Has the patient had major bleeding or predisposition to bleeding?: No Does the patient have labile INRs?: No Is the patient over 65 years of age?: Yes Is the patient on medications that gives them a predisposition to bleeding?: Yes Does the patient use alcohol?: No HAS-BLED Score: 3 CHADSVASC Age: 75 or over Gender: Female Does the patient have a history of CHF?: Yes Does the patient have a history of Hypertension?: Yes Does the patient have a history of Stroke/TIA/Thromboembolism?: Yes Does the patient have a history of Vascular Disease (prior AK, PAD or aortic plaque)?: No Does the patient have a history of Diabetes?: No CHADS VACS Score: 7 Vicenta Prediction Score Rsk VTE Active Cancer: No Previous VTE, excluding superficial vein thrombosis: Yes Reduced mobility: Yes Already known Thrombophilic Condition: No With-in last month Trauma and/or Surgery: No Elderly 70 year or older: Yes Heart and/or Respiratory Failure: Yes Acute Myocardial infarction and/or Ischemic Stroke: No Acute Infection and/or Rheumatologic Disorder: No Obesity (BMI 30 or greater): No Ongoing Hormonal Treatment: No Score: 8 Vicenta Score less than 4; Low Risk of VTE Vicenta Score 4 or greater; High Risk of VTE Coding Level of Care Code Est Patient Level 1 Diagnoses Current use of anticoagulant therapy Z79.01 Results AMB INR Fingerstick AMB INR Fingerstick 2.3 Last Edit by Anita Mendez RN on 07/14/24 13:15 manual entry Assessment & Plan Assessment & Plan (1) Current use of anticoagulant therapy: Code(s): Z79.01 - [facility] (current) use of anticoagulants Category: Medical
--- OUTSIDE RECORDS SUMMARY | 2024-07-14 14:37 | XMS_ITS | Clinical Summary ---
Author Organization [facility] Address [address] [place] [address] Phone Care Team Providers Care Dry Cleaning Teacher Name Role Phone Ruben Dick Primary Care Provider [phone] Allergies No known active allergies Medications amiodarone [...] patient's age to complete this topic Insurance [facility] Care Teams Dry Cleaning Teacher Relationship Specialty Start Date End Date Ruben Dick PA [address] [facility], [address] [place] [address] PCP - General Physician Contract Clerk Automobile 07/19/21
== END 2024-07-14 13:30 | disposition home or self-care (01) ==
LOC: HO.ACS 13:00
PROVIDERS: PCP Physician Assistant; Visit Provider Internal Medicine Medical Oncology
DX: Z79.01 Long term (current) use of anticoagulants (principal)

== ENCOUNTER → 2024-07-14 13:00 | Outpatient (BNVA) | payer MEDICARE, SELFPAY | PROVIDERS: PCP Physician Assistant; Visit Provider Internal Medicine Medical Oncology | DX: I48.0 Paroxysmal atrial fibrillation (principal); Z51.81 Encounter for therapeutic drug level monitoring; Z79.01 Long term (current) use of anticoagulants | CPT/HCPCS: 85610; 99211 ==

== ENCOUNTER 2024-08-11 13:04 | Outpatient (AMB) | payer MEDICARE, SELFPAY ==
[2024-08-11 13:13] LABS: Prothrombin Time Whole Bld POC 47.2 sec (11.1-13.5); ~PT, ~INR - Anti Coag Clinic 3.9 (0.9-1.1)
--- NOTE | 2024-08-11 13:19 | MHC.OFFVISCO ---
Intake Intake Visit Reasons: Anticoagulation Allergies No Known Allergies [No Known Allergies*] Allergy (Verified 08/11/24 13:07) Medication List - Last Reconciled 08/11/24 by Anita Mendez RN amiodarone 100 mg (1/2 x 200 mg) PO DAILY amlodipine 5 mg PO DAILY atorvastatin 20 mg PO DAILY azelastine 1 spray intranasal BID 30 days calcium carbonate (Calcium 600) 600 mg PO DAILY metoprolol succinate ER 50 mg PO DAILY omeprazole 20 mg PO DAILY PRN raloxifene 60 mg PO DAILY walker (Ultra-Light Rollator misc) As directed warfarin 2 mg See Protocol PO DAILY Nursing Note pt comes to [facility] via wheel chair today with brother- felt tiered today INR: 3.9 in therapeutic range- Did not have meals on wheels for a few days due to holiday Medications and supplements reviewed No changes in health, diet, medications, or supplements, Denies any signs and symptoms of bleeding or bruising or clotting. Bleeding, bruising, clotting discussed Nutritional guidance given - keep greens on hand to heat up: broccoli or peas Dose: hold today then decrease weekly dose 2mg x 6 days/ 4mg x 1 day F/U INR: 2 weeks Patient verbalizes understanding of instructions given Anti-Coag Initial Assessment Social Hx Patient Tobacco Use Status: Never used Tobacco alcohol intake: never Coding Level of Care Code Est Patient Level 1 Diagnoses Current use of anticoagulant therapy Z79.01 Results AMB INR Fingerstick AMB INR Fingerstick 3.9 Last Edit by Anita Mendez RN on 08/11/24 13:17 manual entry Assessment & Plan Assessment & Plan (1) Current use of anticoagulant therapy: Code(s): Z79.01 - [facility] (current) use of anticoagulants Category: Medical
--- OUTSIDE RECORDS SUMMARY | 2024-08-11 15:36 | XMS_ITS | Clinical Summary ---
Author Organization [facility] Address [address] [place] [address] Phone Care Team Providers Care Leather Heel Breaster Name Role Phone Ruben Dick Primary Care Provider [phone] Allergies No known active allergies Medications amiodarone [...] Due Date Last Done Comments Pneumococcal Vaccine: 50+ Ye ars (1 of 2 - PCV) 12/31/1953 Influenza Vaccine (Season Ended) 2024 Hepatitis B Vaccine Aged Out No longe r eligible based on patient's age to complete this topic Insurance [facility] Care Teams Leather Heel Breaster Relationship Specialty Start Date End Date Ruben Dick PA [address] [facility], [address] [place] [address] PCP - General Physician Drawer Waxer 07/19/21
== END 2024-08-11 13:31 | disposition home or self-care (01) ==
LOC: HO.ACS 13:04
PROVIDERS: PCP Physician Assistant; Visit Provider Internal Medicine Medical Oncology
DX: Z79.01 Long term (current) use of anticoagulants (principal)

== ENCOUNTER → 2024-08-11 13:04 | Outpatient (BNVA) | payer MEDICARE, SELFPAY | PROVIDERS: PCP Physician Assistant; Visit Provider Internal Medicine Medical Oncology | DX: I48.0 Paroxysmal atrial fibrillation (principal); Z79.01 Long term (current) use of anticoagulants; Z51.81 Encounter for therapeutic drug level monitoring | CPT/HCPCS: 85610; 99211 ==

== ENCOUNTER 2024-08-14 08:16 | Outpatient (REF) | payer MEDICARE, SELFPAY ==
--- NOTE | ~2024-08-14 | XR_ITS ---
EXAMINATION: XR KNEE 3 VIEWS RIGHT HISTORY: M17.11 - Unilateral primary osteoarthritis, right knee COMPARISON: Comparison is made with the prior examination dated 07/25/2018. FINDINGS: Three views of the right knee are submitted. Osseous mineralization is normal. There is no fracture or dislocation. There is severe osteoarthritis of the medial compartment with joint space narrowing and osteophyte formation. There is mild degenerative change of the patellofemoral compartment. There are vascular calcifications. There is no joint effusion. XR/XR knee RT 3V IMPRESSION: Severe osteoarthritis of the medial compartment. Electronically signed by: Bandar Clay MD 08/15/2024 08:39 AM EDT
--- OUTSIDE RECORDS SUMMARY | 2024-08-15 08:30 | XMS_ITS | Clinical Summary ---
Author Organization [facility] Address [address] [place] [address] [address] [place] [address] Phone Care Team Providers Care Security Incident Response Specialist Name Role Phone Ruben Dick Primary Care Provider [phone] Allergies No known active allergies Medications amiodarone [...] age to complete this topic Insurance [facility] Care Teams Security Incident Response Specialist Relationship Specialty Start Date End Date Ruben Dick PA [address] [facility], [address] [place] [address] PCP - General Physician Restaurant Recruiter 07/19/21
== END 2024-08-14 08:17 | disposition home or self-care (01) ==
LOC: HO.HOSX 08:16
PROVIDERS: Visit Provider Orthopaedic Surgery
DX: M17.11 Unilateral primary osteoarthritis, right knee (principal)
CPT/HCPCS: 20610; 73562; 99202; J1010; J2003

== ENCOUNTER 2024-08-14 10:23 | Outpatient (AMB) | payer MEDICARE, SELFPAY ==
[2024-08-14 10:32] VITALS: BMI 19.3
--- NOTE | 2024-08-14 10:32 | MHC.OFFVIS ---
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 Patient was seen by her PCP and was referred to orthopedics for right knee OA. Patient reports she has been having right knee pain that has gotten increasingly worse over time. Pt states she has tried cortisone shots in the past about 3-4 years ago with some relief. Pt states it is hard for her to walk on her right leg due to the pain. She has not had a viscosupplementation injection. She does walk with a cane. Accompanied by: daughter in law Allergies No Known Allergies [No Known Allergies*] Allergy (Verified 08/14/24 10:32) Medication List - Last Reconciled 08/14/24 by Boyd Leroy MD amiodarone 100 mg (1/2 x 200 mg) PO DAILY amlodipine 5 mg PO DAILY atorvastatin 20 mg PO DAILY azelastine 1 spray intranasal BID 30 days calcium carbonate (Calcium 600) 600 mg PO DAILY metoprolol succinate ER 50 mg PO DAILY omeprazole 20 mg PO DAILY PRN raloxifene 60 mg PO DAILY walker (Ultra-Light Rollator misc) As directed warfarin 2 mg See Protocol PO DAILY PFSH Medical History PAF (paroxysmal atrial fibrillation) Essential hypertension Pulmonary hypertension Non-rheumatic tricuspid stenosis with insufficiency Abnormal myocardial perfusion study Chronic heart failure with preserved ejection fraction (HFpEF) Hiatal hernia Diverticulitis Gastro-esophageal reflux disease without esophagitis High cholesterol Hypertension Atrial fibrillation Surgical History S/P total abdominal hysterectomy History of cardioversion H/O mastectomy Family History Father Heart disease Mother Colon cancer Social History Household Members: None Housing: Apartment Are you a primary dog daycare provider to a significant other at home: No Do you presently have visiting nurse or other home services: No Alcohol intake: never Patient Tobacco Use Status: Never used Tobacco e-Cigarette/Vaping Use: Never Used Second Hand Smoke Exposure: No Advance Directives Date on File: 01/16/20 service: No Current occupational status: retired Cognitive needs: No Hearing needs: No Vision needs: No Physical Exam Vital Signs: BMI result Body Mass Index 19.3 Const Other: Well-nourished well-developed very friendly female awake alert and oriented x3 in no acute distress Extrem Other: Right knee examination shows a minimal effusion, palpable crepitus with range of motion, pain with range of motion, no instability Office Procedures AMB Joint Injection/Aspiration Joint Injection/Aspiration Primary Site: right knee Prep: site was prepped using aseptic technique Injected: 40 mg of, DepoMedrol and 1% plain lidocaine Procedure: The patient tolerated the procedure well Coding - Large joint Procedure code (CPT) selection complete Results Reviewed Results Reviewed: X-rays of the patient's right knee show severe joint space narrowing, subchondral sclerosis, no acute bony abnormalities Assessment & Plan Assessment & Plan (1) Arthritis of right knee: Code(s): M17.11 - Unilateral primary osteoarthritis, right knee Category: Medical Plan Ms. Morrison presents with right knee pain due to degenerative joint disease. The risks and benefits of a right knee cortisone injection were discussed at length with the patient. The patient wished to proceed. She tolerated the injection well. She will continue with her home exercise program. She will contact me prior to her follow-up appointment in 3 months should any questions or concerns arise. Feel free to call me at any time should questions regarding her orthopedic management arise. Thank you very much for asking me to see this very friendly patient. I spent 22 minutes in reviewing the patient's records and imaging studies, seeing the patient and documenting in the medical record. Orders: Orders XR knee RT 3V Today M17.11 - Unilateral primary osteoarthritis, right knee AMB Joint Injection/Aspiration Today M17.11 - Unilateral primary osteoarthritis, right knee Coding Level of Care Code New Pt Level 3 (83308) Complex EM visit Add On G2211 Diagnoses Arthritis of right knee M17.11 CPT Codes Coding - Large joint: 86188 - Large joint ([id number])
--- OUTSIDE RECORDS SUMMARY | 2024-08-14 11:50 | XMS_ITS | Clinical Summary ---
Author Organization [facility] Address [address] [place] [address] [address] [place] [address] Phone Care Team Providers Care Welding Machine Operator Name Role Phone Ruben Dick Primary Care Provider [phone] Allergies No known active allergies Medications amiodarone [...] patient's age to complete this topic Insurance [facility] Care Teams Welding Machine Operator Relationship Specialty Start Date End Date Ruben Dick PA [address] [facility], [address] [place] [address] PCP - General Physician Rn Compliance 07/19/21
== END 2024-08-14 11:00 | disposition home or self-care (01) ==
LOC: HO.HOS 10:24
PROVIDERS: PCP Physician Assistant; Visit Provider Orthopaedic Surgery
DX: M17.11 Unilateral primary osteoarthritis, right knee (principal)
CPT/HCPCS: 20610; 99203

== ENCOUNTER → 2024-08-14 10:25 | Outpatient (BNV) | payer MEDICARE, SELFPAY | PROVIDERS: Visit Provider Radiology Diagnostic Radiology | DX: M17.11 Unilateral primary osteoarthritis, right knee (principal) | CPT/HCPCS: 73562 ==

== ENCOUNTER 2024-08-21 13:38 | Outpatient (REF) | payer MEDICARE, SELFPAY ==
[2024-08-21 14:50] LABS: Hematocrit 43.2 % (37.0-47.0); Hemoglobin 14.6 g/dl (12.0-16.0); Mean Corpuscular HGB Conc 33.8 g/dl (31.0-35.0); Mean Corpuscular Hemoglobin 31.7 pg (27.0-33.0); Mean Corpuscular Volume 93.9 fL (80.0-98.0); Mean Platelet Volume 9.2 fL (9.4-12.3); Platelet Count 150 X10*3/uL (160-400); Red Cell Distribution Width 13.9 % (11.0-16.0); White Blood Count 5.5 X10*3/uL (4.8-10.8)
--- OUTSIDE RECORDS SUMMARY | 2024-08-21 15:17 | XMS_ITS | Clinical Summary ---
Author Organization [facility] Address [address] [place] [address] [address] [place] [place] [phone] Phone Care Team Providers Care Ornamental Rail Installer Name Role Phone Ruben Dick Primary Care Provider [phone] Allergies No known active allergies Medications amiodarone [...] patient's age to complete this topic Insurance [facility] Care Teams Ornamental Rail Installer Relationship Specialty Start Date End Date Ruben Dick PA 2 [facility], [address] [place] [address] PCP - General Physician Stage Setting Painter Apprentice 07/19/21
[2024-08-21 15:26] LABS: Alanine Aminotransferase 32 U/L (0-31); Anion Gap 14 (12-20); Aspartate Amino Transferase 46 U/L (5-31); Bilirubin Total 0.8 mg/dL (0.0-1.0); Blood Urea Nitrogen 34 mg/dL (9-16); Calcium 9.8 mg/dL (8.4-10.2); Carbon Dioxide 22 mmol/L (22-29); Chloride 107 mmol/L (96-108); Cholesterol 137 mg/dL (<200); Estimated Glomerular Filt Rate 25; Glucose Fasting 153 mg/dL (60-99); HDL Cholesterol 58 mg/dL (>40); LDL Cholesterol Calculated 60 mg/dL (<100); Potassium 4.3 mmol/L (3.3-5.1); Sodium 139 mmol/L (135-145); Total Protein 6.8 g/dL (6.5-8.0); Triglycerides 98 mg/dL (<150)
[2024-08-21 15:37] LABS: TSH reflex Free T4 3.49 uIU/mL (0.32-4.0)
[2024-08-21 16:08] LABS: Alkaline Phosphatase 70 U/L (39-117)
== END 2024-08-21 13:39 | disposition home or self-care (01) ==
LOC: HO.LAB 13:38
PROVIDERS: PCP Physician Assistant; Visit Provider Internal Medicine
DX: E78.00 Pure hypercholesterolemia, unspecified (principal); N18.4 Chronic kidney disease, stage 4 (severe); I11.0 Hypertensive heart disease with heart failure; I50.32 Chronic diastolic (congestive) heart failure; I36.2 Nonrheumatic tricuspid (valve) stenosis with insufficiency; R94.6 Abnormal results of thyroid function studies; R94.39 Abnormal result of other cardiovascular function study; I48.0 Paroxysmal atrial fibrillation; I27.20 Pulmonary hypertension, unspecified; Z79.01 Long term (current) use of anticoagulants; Z51.81 Encounter for therapeutic drug level monitoring
CPT/HCPCS: 36415; 80053; 80061; 84443; 85027; 85610; 93005; 99211; 99212

== ENCOUNTER 2024-08-21 13:38 | Outpatient (AMB) | payer MEDICARE, SELFPAY ==
[2024-08-21 13:41] VITALS: BP 116/60; PULSE 68; BMI 16.9
--- NOTE | 2024-08-21 13:41 | A.OFFVIS_ITS ---
Vital Signs 08/21/24 13:41 Height 5 ft 5 in Weight 101 lb 6.602 oz BMI 16.9 BP 116/60 Blood Pressure Location Lt brachial Position Sitting Pulse 68 Pulse Source Monitor Intake Visit Reasons: 1 yr follow up Allergies No Known Allergies [No Known Allergies*] Allergy (Verified 08/14/24 10:32) Medication List - Last Reconciled 08/21/24 by Bar Child MD amiodarone 100 mg (1/2 x 200 mg) PO DAILY amlodipine 5 mg PO DAILY atorvastatin 20 mg PO DAILY azelastine 1 spray intranasal BID 30 days calcium carbonate (Calcium 600) 600 mg PO DAILY metoprolol succinate ER 50 mg PO DAILY omeprazole 20 mg PO DAILY PRN raloxifene 60 mg PO DAILY walker (Ultra-Light Rollator misc) As directed warfarin 2 mg See Protocol PO DAILY HPI Comments Details: Rosy returns for follow-up regarding atrial fibrillation and other concerns. Main complaint is weakness and significant weight loss. She suffers from osteoarthritis, predominantly in her right knee, and received a recent cortisone injection for the condition. Over the past few years, she has experienced a steady decline in her weight, now recorded at 101 pounds, though she was 116 pounds a week prior. The patient is on amiodarone which requires monitoring of thyroid function. High blood pressure is managed, though with occasional elevated readings. No acute cardiac symptoms were noted. Apart from frailty, she is getting along otherwise. [facility] Medical History PAF (paroxysmal atrial fibrillation) Essential hypertension Pulmonary hypertension Non-rheumatic tricuspid stenosis with insufficiency Abnormal myocardial perfusion study Chronic heart failure with preserved ejection fraction (HFpEF) Hiatal hernia Diverticulitis Gastro-esophageal reflux disease without esophagitis High cholesterol Hypertension Atrial fibrillation Surgical History S/P total abdominal hysterectomy History of cardioversion H/O mastectomy Family History Father Heart disease Mother Colon cancer Social History Household Members: None Housing: Apartment Are you a primary floor care specialist to a significant other at home: No Do you presently have visiting nurse or other home services: No Alcohol intake: never Patient Tobacco Use Status: Never used Tobacco e-Cigarette/Vaping Use: Never Used Second Hand Smoke Exposure: No Advance Directives Date on File: 01/16/20 service: No Current occupational status: retired Cognitive needs: No Hearing needs: No Vision needs: No Review of Systems Const Denies weakness ENT Denies dizziness Card Denies chest pain, Denies chest pain with activity, Denies syncope, Denies rapid heart rate, Denies pedal edema, Denies edema, Denies leg edema, Denies lightheadedness, Denies palpitations, Denies dyspnea, Denies dyspnea on exertion and Denies orthopnea Resp Denies cough, Denies dyspnea and Denies dyspnea on exertion GI Denies hematochezia and Denies change in stool character Musc Denies abnormal gait, Denies muscle cramps, Denies muscle weakness, Denies numbness, Denies radiating pain into limb and Denies tingling Neuro Denies abnormal gait, Denies dizziness, Denies syncope, Denies numbness, Denies tingling and Denies weakness Endo Denies palpitations Physical Exam Vital Signs: Last Vital Signs Pulse 68 08/21/24 13:41 BP 116/60 08/21/24 13:41 BMI result Body Mass Index 16.9 Const General: comfortable and no acute distress Orientation/consciousness: patient oriented x3 HEENT Other: Unremarkable Head: Yes normal to inspection Neck Neck: Yes normal visual inspection Chest Chest palpation & inspection: normal inspection of the chest Resp Auscultation: clear to auscultation bilaterally Cardio Palpation: normal PMI Heart sounds: S1 normal heart sound present, S2 normal heart sound present, no gallops, Murmur heart sound present systolic I/ and at the right sternal border and no rubs GI Palpation (GI): Soft to palpation Back/Spine/Pelvis Other: unremarkable Skin General skin exam: no rashes or lesions noted Neuro General: patient oriented x3 Extrem General: Yes normal to inspection Psych Mental Status: mental status grossly normal Office Procedures EKG Details: EKG with underlying sinus rhythm at 68/Min; inferior as well as anterolateral ST-depression but grossly similar to prior; [place]. [id number], Complete Assessment & Plan Assessment & Plan (1) PAF (paroxysmal atrial fibrillation): Code(s): I48.0 - Paroxysmal atrial fibrillation Category: Medical Plan: She is on low-dose amiodarone. Multaq is too expensive. Not a candidate for sotalol or Tikosyn due to renal failure. Check TSH. They might do the test today. Also on warfarin. (2) Chronic heart failure with preserved ejection fraction (HFpEF): Code(s): I50.32 - Chronic diastolic (congestive) heart failure Category: Medical Plan: Grade 2 diastolic dysfunction echocardiogram with elevated filling pressures. She already has baseline renal insufficiency. We will use diuretics if necessary. (3) Abnormal myocardial perfusion study: Code(s): R94.39 - Abnormal result of other cardiovascular function study Category: Medical Plan: Prior myocardial perfusion imaging study had shown mild intensity basal inferolateral ischemia. She has absolutely no angina. At her age, with frailty, no need for any further workup. Continue empiric beta-blockers and statins. (4) Non-rheumatic tricuspid stenosis with insufficiency: Code(s): I36.2 - Nonrheumatic tricuspid (valve) stenosis with insufficiency Category: Medical Plan: [id number] tricuspid regurgitation noted on echocardiogram. No clinical implications at this time. (5) Pulmonary hypertension: Code(s): I27.20 - Pulmonary hypertension, unspecified Category: Medical Plan: Most likely all from left heart disease. (6) Essential hypertension: Code(s): I10 - Essential (primary) hypertension Category: Medical Plan: Home blood pressure diary reviewed and most readings are within range. No specific changes necessary. Plan Discussion Notes During our discussion, we reviewed the patient's concern over increased weakness and weight loss. I explained the potential influence of her medication, amiodarone, on thyroid function, necessitating periodic blood tests which have been scheduled. After reviewing her EKG and past blood pressure readings, I reassured her that occasional elevated blood pressure is not alarming unless further symptomatic episodes occur. The cortisone injection for osteoarthritis was confirmed in her recent treatment. We also deliberated rescheduling her fol low-ups to six-monthly intervals in light of her weakening condition which she agreed to. Consent was implicitly given for proceeding with the planned blood test. Patient was informed and verbally consented to the use of an ambient scribe for clinic note documentation during this visit. Orders: Orders TSH reflex Free T4 Today I48.0 - Paroxysmal atrial fibrillation, R94.6 - Abnormal results of thyroid function studies Patient Instructions: - Recheck your weight to confirm accuracy. - Schedule to have your thyroid blood test done soon. - Follow your current medication regimen unless advised otherwise. - Return for regular follow-ups every six months due to current physical condition. - Monitor for any unusual symptoms or changes and report them immediately. Coding Level of Care Code Est Pt Level 4 (56609) Complex EM visit Add On G2211 Diagnoses PAF (paroxysmal atrial fibrillation) I48.0 Chronic heart failure with preserved ejection fraction (HFpEF) I50.32 Abnormal myocardial perfusion study R94.39 Non-rheumatic tricuspid stenosis with insufficiency I36.2 Pulmonary hypertension I27.20 Essential hypertension I10 CPT Codes EKG - CPT: 81067-[id number], Complete ([id number])
--- OUTSIDE RECORDS SUMMARY | 2024-08-21 14:38 | XMS_ITS | Clinical Summary ---
Author Organization [facility] [place] Address [address] [place] [address] [address] [place] [address] Phone Care Team Providers Care Police Chief Name Role Phone Ruben Dick Primary Care Provider [phone] Allergies No known active allergies Medications amiodarone [...] age to complete this topic Insurance [facility] Care Teams Police Chief Relationship Specialty Start Date End Date Ruben Dick PA [address] [facility], [address] [place] [address] PCP - General Physician Aircraft Engine Specialist 07/19/21
== END 2024-08-21 14:16 | disposition home or self-care (01) ==
LOC: HO.HCS 13:38
PROVIDERS: PCP Physician Assistant; Visit Provider Internal Medicine
DX: I48.0 Paroxysmal atrial fibrillation (principal); I50.32 Chronic diastolic (congestive) heart failure; R94.39 Abnormal result of other cardiovascular function study; I36.2 Nonrheumatic tricuspid (valve) stenosis with insufficiency; I27.20 Pulmonary hypertension, unspecified; I10 Essential (primary) hypertension
CPT/HCPCS: 93010; 99214; G2211

== ENCOUNTER 2024-08-21 14:46 | Outpatient (AMB) | payer MEDICARE, SELFPAY ==
[2024-08-21 14:57] LABS: Prothrombin Time Whole Bld POC 35.1 sec (11.1-13.5); ~PT, ~INR - Anti Coag Clinic 2.9 (0.9-1.1)
--- NOTE | 2024-08-21 15:07 | MHC.OFFVISCO ---
Intake Intake Visit Reasons: Anticoagulation Allergies No Known Allergies [No Known Allergies*] Allergy (Verified 08/21/24 14:51) Medication List - Last Reconciled 08/21/24 by Anita Mendez RN amiodarone 100 mg (1/2 x 200 mg) PO DAILY amlodipine 5 mg PO DAILY atorvastatin 20 mg PO DAILY azelastine 1 spray intranasal BID 30 days calcium carbonate (Calcium 600) 600 mg PO DAILY metoprolol succinate ER 50 mg PO DAILY omeprazole 20 mg PO DAILY PRN raloxifene 60 mg PO DAILY walker (Ultra-Light Rollator mis) As directed warfarin 2 mg See Protocol PO DAILY Nursing Note pt comes via wheelchair with brother - hallway to [facility] to ambulate for her- came for lab work today and asked to be seen - added to schedule today INR: 2.9 in therapeutic range Medications and supplements reviewed No changes in health, diet, medications, or supplements, Denies any signs and symptoms of bleeding or bruising or clotting. Bleeding, bruising, clotting discussed Nutritional guidance given - keep up weekly greens and blueberries Dose: Continue lowered dose 4mg x 1 day/ 2mg x 6 days( may require more of a decreased dose) may consider lower dose - labs pending F/U INR: 2 weeks Patient verbalizes understanding of instructions given Anti-Coag Initial Assessment Social Hx Patient Tobacco Use Status: Never used Tobacco alcohol intake: never Coding Level of Care Code Est Patient Level 1 Diagnoses Current use of anticoagulant therapy Z79.01 Assessment & Plan Assessment & Plan (1) Current use of anticoagulant therapy: Code(s): Z79.01 - terminal computer operator (current) use of anticoagulants Category: Medical
== END 2024-08-21 15:13 | disposition home or self-care (01) ==
LOC: HO.ACS 14:46
PROVIDERS: PCP Physician Assistant; Visit Provider Internal Medicine Medical Oncology
DX: Z79.01 Long term (current) use of anticoagulants (principal)

== ENCOUNTER 2024-09-04 13:06 | Outpatient (AMB) | payer MEDICARE, SELFPAY ==
--- OUTSIDE RECORDS SUMMARY | 2024-09-04 13:07 | XMS_ITS | Clinical Summary ---
Author Organization [facility] Address [address] [place] [address] Phone Care Team Providers Care Smelting Engineer Name Role Phone Ruben Dick Primary Care Provider [phone] Allergies No known active allergies Medications amiodarone [...] to complete this topic Insurance [facility] Care Teams Smelting Engineer Relationship Specialty Start Date End Date Ruben Dick PA [address] [facility], [address] [place] [address] PCP - General Physician District Sales Coordinator 07/19/21
[2024-09-04 13:32] LABS: Prothrombin Time Whole Bld POC 27.9 sec (11.1-13.5); ~PT, ~INR - Anti Coag Clinic 2.3 (0.9-1.1)
--- NOTE | 2024-09-04 13:38 | MHC.OFFVISCO ---
Intake Intake Visit Reasons: Anticoagulation Allergies No Known Allergies [No Known Allergies*] Allergy (Verified 09/04/24 13:22) Medication List - Last Reconciled 09/04/24 by Anita Mendez RN amiodarone 100 mg (1/2 x 200 mg) PO DAILY amlodipine 5 mg PO DAILY atorvastatin 20 mg PO DAILY azelastine 1 spray intranasal BID 30 days calcium carbonate (Calcium 600) 600 mg PO DAILY metoprolol succinate ER 50 mg PO DAILY omeprazole 20 mg PO DAILY PRN raloxifene 60 mg PO DAILY walker (Ultra-Light Rollator misc) As directed warfarin 2 mg See Protocol PO DAILY Nursing Note pt comes to [facility] with a brother and wheel chair - it is too far for her to walk INR: 2.3 in therapeutic range Medications and supplements reviewed No changes in health, diet, medications, or supplements, Denies any signs and symptoms of bleeding or bruising or clotting. Bleeding, bruising, clotting discussed Nutritional guidance given Dose: 4MG X 1 DAY/ 2MG X 6 DAYS F/U INR: 3 WEEKS THEN IF STABLE THEN 4 WEEKS Patient verbalizes understanding of instructions given Anti-Coag Initial Assessment Social Hx Patient Tobacco Use Status: Never used Tobacco alcohol intake: never Coding Level of Care Code Est Patient Level 1 Diagnoses Current use of anticoagulant therapy Z79.01 Assessment & Plan Assessment & Plan (1) Current use of anticoagulant therapy: Code(s): Z79.01 - alf (current) use of anticoagulants Category: Medical
== END 2024-09-04 13:40 | disposition home or self-care (01) ==
LOC: HO.ACS 13:06
PROVIDERS: PCP Physician Assistant; Visit Provider Internal Medicine Medical Oncology
DX: Z79.01 Long term (current) use of anticoagulants (principal)

== ENCOUNTER → 2024-09-04 13:06 | Outpatient (BNVA) | payer MEDICARE, SELFPAY | PROVIDERS: PCP Physician Assistant; Visit Provider Internal Medicine Medical Oncology | DX: I48.0 Paroxysmal atrial fibrillation (principal); Z79.01 Long term (current) use of anticoagulants; Z51.81 Encounter for therapeutic drug level monitoring | CPT/HCPCS: 85610; 99211 ==

== ENCOUNTER 2024-09-09 09:04 | Outpatient (REF) | payer MEDICARE, SELFPAY ==
--- OUTSIDE RECORDS SUMMARY | 2024-09-09 09:33 | XMS_ITS | Clinical Summary ---
Author Organization [facility] [place] Address [address] [place] [address] Phone Care Team Providers Care Contracting Executive Name Role Phone Ruben Dick Primary Care Provider [phone] Allergies No known active allergies Medications amiodarone [...] age to complete this topic Insurance [facility] Care Teams Contracting Executive Relationship Specialty Start Date End Date Ruben Dick PA 2 [facility], [address] [place] [address] PCP - General Physician Primary Care Md 07/19/21
[2024-09-09 10:25] LABS: Estimated Average Glucose 111 mg/dL; Hemoglobin A1c % 5.5 % (<6.0)
[2024-09-09 14:00] LABS: Creatinine Urine 98.79 mg/dL; Microalbum/Creatinine Ratio Ur 476.7 ug/mg cr (<30)
== END 2024-09-09 09:05 | disposition home or self-care (01) ==
LOC: HO.LAB 09:04
PROVIDERS: PCP Physician Assistant; Visit Provider Physician Assistant
DX: R73.01 Impaired fasting glucose (principal); N18.4 Chronic kidney disease, stage 4 (severe)
CPT/HCPCS: 36415; 82043; 82570; 83036

== ENCOUNTER 2024-09-25 13:05 | Outpatient (AMB) | payer MEDICARE, SELFPAY ==
[2024-09-25 13:34] LABS: Prothrombin Time Whole Bld POC 24.3 sec (11.1-13.5)
--- NOTE | 2024-09-25 13:43 | MHC.OFFVISCO ---
Intake Intake Visit Reasons: Anticoagulation Allergies No Known Allergies [No Known Allergies*] Allergy (Verified 09/25/24 13:27) Medication List - Last Reconciled 09/25/24 by Anita Mendez RN amiodarone 100 mg (1/2 x 200 mg) PO DAILY amlodipine 5 mg PO DAILY atorvastatin 20 mg PO DAILY azelastine 1 spray intranasal BID 30 days calcium carbonate (Calcium 600) 600 mg PO DAILY metoprolol succinate ER 50 mg PO DAILY omeprazole 20 mg PO DAILY PRN raloxifene 60 mg PO DAILY walker (Ultra-Light Rollator misc) As directed warfarin 2 mg See Protocol PO DAILY Nursing Note Pt comes to clinic with at least 1 of her brothers and walker - will be getting hearing aids INR: 2.0 in therapeutic range Medications and supplements reviewed No changes in health, diet, medications, or supplements, Denies any signs and symptoms of bleeding or bruising or clotting. Bleeding, bruising, clotting discussed Nutritional guidance given Dose: 4MG X 1 DAY/ 2MG X 6DAYS F/U INR: 1 MONTH Patient verbalizes understanding of instructions given Anti-Coag Initial Assessment Social Hx Patient Tobacco Use Status: Never used Tobacco alcohol intake: never Coding Level of Care Code Est Patient Level 1 Diagnoses Current use of anticoagulant therapy Z79.01 Assessment & Plan Assessment & Plan (1) Current use of anticoagulant therapy: Code(s): Z79.01 - long term care administrator (current) use of anticoagulants Category: Medical
--- OUTSIDE RECORDS SUMMARY | 2024-09-25 15:13 | XMS_ITS | Clinical Summary ---
Author Organization [facility] Address [address] [place] [address] [address] [place] [address] Phone Care Team Providers Care Commercial Account Executive Name Role Phone Ruben Dick Primary Care Provider [phone] Allergies No known active allergies Medications amiodarone [...] patient's age to complete this topic Insurance [facility] Care Teams Commercial Account Executive Relationship Specialty Start Date End Date Ruben Dick PA [address] [facility], [address] [place] [address] PCP - General Physician Case Management Manager 07/19/21
== END 2024-09-25 13:48 | disposition home or self-care (01) ==
LOC: HO.ACS 13:05
PROVIDERS: PCP Physician Assistant; Visit Provider Internal Medicine Medical Oncology
DX: Z79.01 Long term (current) use of anticoagulants (principal)

== ENCOUNTER → 2024-09-25 13:05 | Outpatient (BNVA) | payer MEDICARE, SELFPAY | PROVIDERS: PCP Physician Assistant; Visit Provider Internal Medicine Medical Oncology | DX: I48.0 Paroxysmal atrial fibrillation (principal); Z79.01 Long term (current) use of anticoagulants; Z51.81 Encounter for therapeutic drug level monitoring | CPT/HCPCS: 85610; 99211 ==

== ENCOUNTER 2024-10-23 13:05 | Outpatient (AMB) | payer MEDICARE, SELFPAY ==
--- OUTSIDE RECORDS SUMMARY | 2024-10-23 13:10 | XMS_ITS | Clinical Summary ---
Author Organization [facility] Address [address] [place] [address] Phone Care Team Providers Care Bisque Kiln Drawer Name Role Phone Ruben Dick Primary Care Provider [phone] Allergies No known active allergies Medications amiodarone [...] of 2 - PCV) 12/31/1953 Influenza Vaccine (#1) 2024 Hepatitis B Vaccine Aged Out No longe r eligible based on patient's age to complete this topic Insurance [facility] Care Teams Bisque Kiln Drawer Relationship Specialty Start Date End Date Ruben Dick PA [address] [facility], [address] [place] [address] PCP - General Physician Siebel Crm Developer 07/19/21
--- OUTSIDE RECORDS SUMMARY | 2024-10-23 13:10 | XMS_ITS | Patient Health Record ---
Author Organization [facility] Address [address] [place] [address] Care Team Providers Care Cookie Padder Name Role Phone Kim LOPEZ, Jose Cruz Primary Care Provider Unavaila Ryan Bentley Jr Unavailable [phone] Marjan Maya Unavailable Unavailable Reason For Referral No Information Medications Medication SIG (Take, Route, Frequency, Duration) Notes Start Date End Date Status Omeprazole 20 MG 1 capsule Orally Once a day for 90 days Active Warfarin Sodium 2 MG 1 tablet Orally Once a day Active amLODIPine Besylate 5 MG 1 tablet Orally Once a day Active hydroCHLOROthiazide 25 MG 1 tablet Orall y Once a day Active Ferrous Sulfate 325 (65 Fe) MG 1 tablet Orally twice a day Not-Taking Letrozole 2.5 MG 1 tablet Orally Once a day Active Potassium Chloride Lena ER 1 0 MEQ 1 tablet with food Orally Once a day Active Calcium 1200 mg 1 tablet Oral qd Active Problems Problem Type SNOMED Code ICD Code Onset Dates Problem Status W/U Status Risk Notes Problem 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) Active confirmed Problem 49609157 Iron deficiency anemia (D50.9) Active confirmed Problem 58123686 Colon polyp (K63.5) Active confirmed Problem 37781176 Erosive esophagi tis (K22.10) Active confirmed Plan Of Treatment Future Test Test Name Order Date UPPER GI ENDOSCOPY 03/01/2016 COLONOSCOPY 03/01/2016 Insurance Providers Payer Name Payer Address Payer Phone Subscriber Number Group Number Insured Name Patient Relationship to Insured Coverage Start Date Coverage End Date [facility] [address] [place] [facility] [phone] [id number] CHRISTAL ROGERS Self - patient is the insured Medical (General) History Medical History History ICD Code colonoscopy 07-02-10 hemorrhoids history of intermittent rectal itching a nd discomfort breast cancer on the left, s tatus post mastectomy and lymph node resetion in 1992 hypertension melanoma shingles with post-hepatic neuralgia Denies MS,DM,CVA,Lung disease,renal dise ase Atrial fibrillation blood clots Surgical History Surgery Date(Month/Year) mastectomy and lymph node resection in -left breast removal of melanoma from the back hysterectomy for fibroid disease lumpectomy, right breast 2013
[2024-10-23 13:14] LABS: Prothrombin Time Whole Bld POC 24.6 sec (11.1-13.5); ~PT, ~INR - Anti Coag Clinic 2.1 (0.9-1.1)
--- NOTE | 2024-10-23 13:25 | MHC.OFFVISCO ---
Intake Intake Visit Reasons: Anticoagulation Allergies No Known Allergies (No Known Allergies*) Allergy (Verified 10/23/24 13:06) Medication List - Last Reconciled 10/23/24 by Anita Mendez RN amiodarone 100 mg (1/2 x 200 mg) PO DAILY amlodipine 5 mg PO DAILY Held on 07/02/24. Instructions: Doctor's Order atorvastatin 20 mg PO DAILY azelastine 1 spray intranasal BID 30 days calcium carbonate (Calcium 600) 600 mg PO DAILY metoprolol succinate ER 50 mg PO DAILY omeprazole 20 mg PO DAILY PRN raloxifene 60 mg PO DAILY walker (Ultra-Light Rollator misc) As directed warfarin 2 mg See Protocol PO DAILY Nursing Note INR: 2.1 in therapeutic range Medications and supplements reviewed No changes in health, diet, medications, or supplements, Denies any signs and symptoms of bleeding or bruising or clotting. 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
== END 2024-10-23 13:28 | disposition home or self-care (01) ==
LOC: HO.ACS 13:05
PROVIDERS: PCP Physician Assistant; Visit Provider Internal Medicine Medical Oncology
DX: Z79.01 Long term (current) use of anticoagulants (principal)

== ENCOUNTER 2024-10-23 13:05 | Outpatient (REF) | payer MEDICARE, SELFPAY ==
[2024-10-23 13:58] LABS: Microalbum/Creatinine Ratio Ur 212.5 ug/mg cr (<30)
== END 2024-10-23 13:06 | disposition home or self-care (01) ==
LOC: HO.LNP 13:05
PROVIDERS: PCP Physician Assistant; Visit Provider Internal Medicine Medical Oncology
DX: I48.0 Paroxysmal atrial fibrillation (principal); R80.9 Proteinuria, unspecified; Z51.81 Encounter for therapeutic drug level monitoring; Z79.01 Long term (current) use of anticoagulants
CPT/HCPCS: 82043; 82570; 85610; 99211

== ENCOUNTER 2024-10-28 20:44 | Observation (INO) | payer MEDICARE, SELFPAY ==
--- NOTE | ~2024-10-28 | XR_ITS ---
CLINICAL HISTORY: pain, fall 3 view left foot Comparison: None provided Findings: No acute fractures or dislocations are identified at the left foot. Partial visualization of a fracture at the distal left fibula. Mildly limited evaluation of the digits related to hammertoe deformities with associated bony overlap at these sites. Vascular calcifications are present. No radiopaque foreign body. IMPRESSION: 1. No acute fracture or dislocation injury identified at the left foot. This document has been electronically signed by: Tej Storey MD on 10/28/2024 22:12:59
--- NOTE | ~2024-10-28 | CT_ITS ---
CLINICAL HISTORY: fall, on thinners CT cervical spine without contrast Comparison: None provided. Findings: Minimal biapical pleural-parenchymal thickening/scarring. 1.5 cm low-attenuation left thyroid nodule. There is grade 1 anterolisthesis of C3 on C4 and also of C4 on C5 with grade 1 retrolisthesis of C5 on C6. [id number] degenerative endplate changes are present at the cervical spine. Multilevel bilateral degenerative facet arthropathy also present at the cervical spine. No acute fractures or dislocations. Impression: No acute fracture or dislocation injury identified at the cervical spine. 1.5 cm low-attenuation left thyroid nodule. Recommend nonemergent thyroid ultrasound examination for further evaluation. This document has been electronically signed by: Tej Storey MD on 10/28/2024 22:56:21
--- NOTE | ~2024-10-28 | CT_ITS ---
CLINICAL HISTORY: fall, on thinners CT head without contrast Comparison: None provided. Findings: No intracranial mass, midline shift, hydrocephalus, or acute hemorrhage. There is generalized cerebral and cerebellar volume loss. Moderate nonspecific periventricular and subcortical white matter changes are identified, which may be seen in the setting of chronic small vessel ischemic disease. Small focus of right cerebellar encephalomalacia present. Minimal mucosal thickening identified within the ethmoid air cells with partial visualization of a small to moderate mucous retention cyst at the left maxillary sinus. The bilateral mastoid air cells appear clear. No acute skull fracture. Impression: 1. No acute intracranial abnormality. No acute intracranial hemorrhage. This document has been electronically signed by: Tej Storey MD on 10/28/2024 23:08:33
--- NOTE | ~2024-10-28 | XR_ITS ---
CLINICAL HISTORY: pain, fall 3 view left ankle Comparison: None provided Findings: Minimally displaced fracture present at the lateral malleolus. The fracture line extends from the level of the ankle mortise into the distal left fibular shaft. No associated disruption of the ankle mortise is identified. The talar dome appears intact. Vascular calcifications are present. No radiopaque foreign body. IMPRESSION: 1. Minimally displaced fracture present at the lateral malleolus of the left ankle. This document has been electronically signed by: Tej Storey MD on 10/28/2024 22:13:43
[2024-10-28 20:53] VITALS: BP 180/100; PULSE 103; O2SAT 98
[2024-10-28 21:04] VITALS: BP 201/112; PULSE 87; RESP 18; TEMP 36.7; O2SAT 95; BMI 19.9
--- NOTE | 2024-10-28 21:13 | ECG_ITS ---
Test Reason : FALL Blood Pressure : */* mmHG Vent. Rate : 89 BPM Atrial Rate : 89 BPM P-R Int : 220 ms QRS Dur : 90 ms QT Int : 358 ms P-R-T Axes : 74 84 82 degrees QTcB Int : 435 ms Sinus rhythm with 1st degree A-V block with Premature atrial complexes Nonspecific ST and T wave abnormality Abnormal ECG When compared with ECG of 13-Feb-2020 16:41, MT interval has increased Questionable change in QRS axis Nonspecific T wave abnormality, worse in Lateral leads Referred By: Laura Denton Electronically Signed By: TON LEON
--- NOTE | 2024-10-28 21:14 | ED.FALL ---
HPI - Fall General Chief Complaint: Fall Stated Complaint: fall, +c-collar, +thinners Time Seen by Provider: 10/28/24 21:01 Source: patient and EMS Mode of arrival: EMS Limitations: no limitations History of Present Illness ED Provider: Dr. Laura Denton HPI Narrative: Patient comes to the emergency room via ambulance from home. Seems that over 24 hours ago, patient became dizzy while ambulating towards her bed and fell. Patient was not able to get up by herself and she remained on the ground for almost 24 hours. Patient states that she was able to move around by sitting and pushing herself throughout the house. Today, a family member went to do a wellness check and realized that the patient was on the floor. Patient takes Coumadin. Patient complaining of pain mostly in her left foot Related Data Home Medications ?Medication ?Instructions ?Recorded ?Confirmed calcium carbonate (Calcium 600) 600 mg PO DAILY 07/12/23 10/29/24 omeprazole 20 mg capsule,delayed 20 mg PO DAILY PRN Heartburn 07/08/24 10/29/24 release acetaminophen 500 mg tablet 1,000 mg PO Q6H PRN Pain 10/29/24 10/29/24 amiodarone 200 mg tablet 100 mg PO DAILY 10/29/24 10/29/24 warfarin 2 mg tablet 2 mg PO SUMOTUWEFRSA@1800 10/29/24 10/29/24 warfarin 2 mg tablet 4 mg PO TH@1800 10/29/24 10/29/24 Previous Rx's ?Medication ?Instructions ?Recorded atorvastatin 20 mg tablet 20 mg PO DAILY #90 tabs 04/24/24 amlodipine 5 mg tablet 5 mg PO DAILY #90 tabs 07/02/24 Held on 07/02/24. Instructions: Doctor's Order metoprolol succinate 50 mg 50 mg PO DAILY #90 tabs 07/02/24 tablet,extended release 24 hr raloxifene 60 mg tablet 60 mg PO DAILY #90 tabs 07/02/24 [place] [facility] [place] 07/02/24 Allergies Allergy/AdvReac Type Severity Reaction Status Date / Time No Known Allergies (No Known Allergy Verified 10/28/24 21:06 Allergies*) Review of Systems Review of Systems: Constitutional : No Weight loss, No Fever, No Chills, No Night Sweats, No Fatigue, No Malaise ENT/Mouth : No Hearing loss, No Ear Pain, No Nasal Congestion, No Sinus Pain, No Hoarseness, No sore throat, No Rhinorrhea, No Swallowing Difficulty Eyes: No Eye Pain, No Swelling, No Redness, No Foreign Body, No Discharge, No Vision Changes Cardiovascular : No Chest Pain, No SOB, No Dyspnea on Exertion, No Orthopnea, No Edema, No Palpitations Respiratory : No Cough, No Sputum, No Wheezing, No Smoke Exposure, No Dyspnea Gastrointestinal : No Nausea, No Vomiting, No Diarrhea, No Constipation, No abdominal Pain, No Hematochezia, No Melena Genitourinary : no irregular bleeding, No Dysuria, No Urinary Frequency, No Hematuria, No Urinary Incontinence, No Urgency, No Flank Pain, No Urinary Flow Changes, No Hesitancy Musculoskeletal : No joint pain, No Myalgias, No Joint Swelling Skin : Complaining of pain in her buttocks from crawling around, complaining a large ecchymosis on the left foot Neuro : No Weakness, No Numbness, No Paresthesias, No Loss of Consciousness, No Dizziness, No Headache Psych : No Anxiety/Panic, No Depression, No SI/HI/AH/VH, No Social Issues, Heme/Lymph: No Bruising, No Bleeding,No Lymphadenopathy Endocrine : No Polyuria, No Polydipsia, No Temperature Intolerance [facility] Past Medical History Medical History PAF (paroxysmal atrial fibrillation) Essential hypertension Pulmonary hypertension Non-rheumatic tricuspid stenosis with insufficiency Abnormal myocardial perfusion study Chronic heart failure with preserved ejection fraction (HFpEF) Hiatal hernia Diverticulitis Gastro-esophageal reflux disease without esophagitis High cholesterol Hypertension Atrial fibrillation Surgical History S/P total abdominal hysterectomy History of cardioversion H/O mastectomy Family History Family History Father Heart disease Mother Colon cancer Social History Social History Household Members: None Housing: Apartment Are you a primary healthcare corporate account director to a significant other at home: No Do you presently have visiting nurse or other home services: No Alcohol intake: never Patient Tobacco Use Status: Never used Tobacco Smoked in Last 30 Days: No e-Cigarette/Vaping Use: Never Used Second Hand Smoke Exposure: No Use of substances other than those prescribed or required for medical reasons: No Advance Directives: Yes Advance Directives on File: Yes Advance Directives Date on File: 01/16/20 service: No Current occupational status: retired Cognitive needs: No Hearing needs: No Vision needs: No Physical Exam Vital Signs: Vital Signs: Last Vital Signs Temp 97.5 F 10/29/24 04:59 Pulse 71 10/29/24 14:05 Resp 16 10/29/24 14:05 BP 114/59 L 10/29/24 14:05 Pulse Ox 95 10/29/24 14:05 O2 Del Method Room Air 10/29/24 14:05 BMI result Body Mass Index 19.9 Const: Other: Appearance: Alert. Oriented X3. No acute distress. Eyes: Pupils equal, round and reactive to light. ENT: Pharynx normal. Neck: Normal inspection. Neck supple. No lymph nodes noted. No crepitus CVS: Normal heart rate and rhythm. Pulses normal. Normal S1 and S2 Respiratory: No respiratory distress. Breath sounds normal. No Wheezing. No rales Abdomen: Soft and nontender. No rigidity. No distention. Skin: Skin warm and dry. Normal skin color. Normal skin turgor. Patient has a very extensive ecchymosis on the dorsum of the left foot and over the right olmos. No swelling, no edema Extremities: No lower extremity edema. No Lacerations. No Rash, see skin above, pain to palpation over the lateral malleolus Neuro: Oriented X 3. No motor deficit. No sensory deficit. Moving all extremities. No slurred speech. CN 2 through 12 grossly intact Psych: calm, cooperative, normal affect Course Course Course Narrative: Patient comes to the emergency room complaining of a fall, patient was in the floor for 24+ hours. Patient states that she was moving around her house by sitting and pushing herself throughout the house. Patient was not able to stand. All of patient's labs and imaging pending Medications Administered Generic Name Dose Route Start Last Admin Trade Name Freq PRN Reason Stop Dose Admin Cefuroxime Axetil 250 mg 10/28/24 23:45 10/29/24 08:52 Cefuroxime Axetil 250 Mg Tablet PO 250 mg BID TRAV Administration Discontinued Medications Generic Name Dose Route Start Last Admin Trade Name Freq PRN Reason Stop Dose Admin Amlodipine Besylate 10 mg 10/28/24 21:13 10/28/24 21:50 Amlodipine Besylate 10 Mg Tablet PO 10/28/24 21:14 10 mg ONCE ONE Administration Protocol Hydrochlorothiazide 25 mg 10/28/24 23:35 10/29/24 00:27 Hydrochlorothiazide 25 Mg Tablet PO 10/28/24 23:36 25 mg ONCE ONE Administration Protocol Metoprolol Tartrate 50 mg 10/28/24 21:13 10/28/24 21:51 Metoprolol Tartrate 50 Mg Tablet PO 10/28/24 21:14 50 mg ONCE ONE Administration Protocol Procedures Orthopedic Splinting/Casting Injury #1: Side: left Lower Extremity Injury Location: ankle Lower Extremity Immobilizer: posterior splint and stirrup splint Medical Decision Making Medical Decision Making MDM Narrative: My interpretation of labs: No significant abnormality in patient's hematology, coagulation shows an INR of 1.9, chemistry shows a creatinine of 1.51 which is at patient's baseline. Patient's creatinine is 668, troponin 68.0. Patient has no chest pain at all. Urinalysis positive for UTI, patient given p.o. cefuroxime When patient arrived, patient's blood pressure was 212/116. Patient states that because she has been on the floor, she has not had access to her blood pressure medications, states she takes metoprolol and amlodipine. Patient was given p.o. 10 mg of amlodipine and metoprolol 50 mg. Patient's blood pressure roof to 143/113. Patient's diastolic blood pressure still elevated, patient given 1 dose of hydrochlorothiazide. Patient denies any chest pain EKG: Normal sinus rhythm, heart rate 89, no ST segment depression or elevation, no T-wave inversion, QTC 435 Patient's left leg was placed on a short posterior splint with stirrup splint Crutches were provided to the patient. However, patient is 89 years old, on blood thinners. Patient is PT case management. Patient will not do well on her own Of note, CT scan of the cervical spine shows 1.5 cm left thyroid nodule. Patient is to follow-up with her primary care physician. Pending: Troponin 2 Patient's family at bedside, patient's brother states that the patient has several stairs at home, lives by herself. They are willing to stay with her and help her. However, they can not get her upstairs to her house. Therefore, we will get a PT case management consult. Patient would not do well on crutches. We were waiting for PT recommendations. Patient may need a walker. However, patient is not supposed to bear weight either. 0945 - patient was made physician observation however upon review, patient has had elevated troponins which are only increasing. Given that she was dizzy prior to the fall, has had positive troponin found to have a UTI, and she also has a fracture of her lower extremity, I discussed this with my attending physician, Dr. Delgado, who believes that she does meet admission criteria. We will repeat trop, CPK, and EKG. Will discussed with hospitalist for possible transfer of care. 1249 - repeat troponin 79.7. Her troponins since this hospitalization were 68, 78.5, and 79.7. Repeat EKG does show some EKG changes showing inverted T-waves in V2, V3, V4, and V5. I did discuss this with Dr. Child. He believes that the EKG changes could be from LV strain from uncontrolled blood pressure. I discussed this with my attending physician, given elevated troponins, EKG changes, as well as fall caused by dizziness, it is unclear what had caused her dizziness therefore she would need further workup to ensure that this was not any other cause. I discussed this with my attending physician, Dr. Palacio, who agrees that patient should be admitted as it is unclear what caused her to fall. Physician observation ended as patient was medically admitted. Differential Diagnosis Differential Diagnoses: The differential diagnosis associated with the presentation includes (Hypertensive urgency, hypertensive emergency, ankle fracture versus dislocation, UTI) Admission/Observation Consideration of admission/observation: Escalation of care including admission/observation considered (Patient is under physician observation, case management/physical therapy consult pending) Lab Data MDM Lab Attestation statement: I reviewed the patient's lab results. 10/28/24 21:32 10/28/24 21:33 Labs: Lab Results 10/28/24 10/28/24 10/28/24 Range/Units 21:32 21:33 23:48 WBC 9.2 (4.8-10.8) X10*3/uL RBC 4.36 (4.20-5.50) X10*6/uL Hgb 14.0 (12.0-16.0) g/dl Hct 41.3 (37.0-47.0) % MCV 94.7 (80.0-98.0) fL MCH 32.1 (27.0-33.0) pg MCHC 33.9 (31.0-35.0) g/dl RDW 13.8 (11.0-16.0) % Plt Count 143 L (160-400) X10*3/uL MPV 9.8 (9.4-12.3) fL Immature Gran % (Auto) 0.7 H (0.0-0.4) % Neut % (Auto) 77.3 H (45-73) % Lymph % (Auto) 8.5 L (20-40) % [place] % (Auto) 13.1 H (2-11) % Eos % (Auto) 0.1 (0-4) % Baso % (Auto) 0.3 (0-2) % Lymph # (Auto) 0.8 L (1.2-4.9) X10*3/uL [place] # (Auto) 1.2 (0.1-1.2) X10*3/uL Eos # (Auto) 0.0 (0.0-0.4) X10*3/uL Baso # (Auto) 0.0 (0.0-0.2) X10*3/uL Abs Immat Gran (auto) 0.06 H (0.00-0.03) X10*3/uL Absolute Neuts (auto) 7.1 (2.0-8.3) x10*3/uL Absolute Nucleated RBC 0.000 (0.0-0.012) X10*3/uL Nucleated RBC % (auto) 0.0 (0.0-0.2) /100WBC Smear Tech's Comments VERIFIED PT 22.3 H (10.9-12.4) SEC INR 1.9 H (0.9-1.1) Sodium 143 (135-145) mmol/L Potassium 4.4 (3.3-5.1) mmol/L Chloride 113 H (96-108) mmol/L Carbon Dioxide 24 (22-29) mmol/L Anion Gap 10 L (12-20) BUN 28 H (9-16) mg/dL Creatinine 1.51 H (0.5-1.4) mg/dL Estim Creat Clear Calc 20.0 Estimated GFR 33 Random Glucose 129 H (60-115) mg/dL Calcium 9.4 (8.4-10.2) mg/dL Magnesium 2.0 (1.6-2.6) mg/dL Total Bilirubin 1.4 H (0.0-1.0) mg/dL Direct Bilirubin 0.5 (0.0-0.5) mg/dL AST 51 H (5-31) U/L ALT 27 (0-31) U/L Alkaline Phosphatase 74 (39-117) U/L Total Creatine Kinase 668 H (26-140) U/L Troponin I High Sens 68.0 H* 78.5 H* (<3.5-17.0) ng/L Total Protein 6.7 (6.5-8.0) g/dL Albumin 4.1 (3.5-5.0) g/dL Urine Color Yellow Urine Appearance Cloudy Urine pH 6.0 (5.0-9.0) Ur Specific [place] 1.015 (1.005-1.025) Urine Protein 100 (2+) H (Neg-Trace) mg/dL Urine Glucose (UA) Negative (Negative) mg/dL Urine Ketones Negative (Negative) mg/dL Urine Blood Moderate (2+) H (Negative) Urine Nitrite Positive H (Negative) Ur Leukocyte Esterase Moderate (2+) H (Negative) Urine RBC 0-2 (0-2) /HPF Urine WBC 6-10 (0-5) /HPF Ur Squamous Epith Cells 3-5 (0-2) /HPF Urine Bacteria 4+ (None Seen) Hyaline Casts 0-2 (0-2) /LPF Urine Opiates Screen Not Detected (Not Detect) Ur Buprenorphine Scrn Not Detected (Not Detect) ng/mL Ur Oxycodone Screen Not Detected (Not Detect) ng/mL Urine Methadone Screen Not Detected (Not Detect) ng/mL Urine Fentanyl Screen Not Detected (Not Detect) Ur Barbiturates Screen Not Detected (Not Detect) Ur Phencyclidine Scrn Not Detected (Not Detect) Ur Amphetamines Screen Not Detected (Not Detect) U Benzodiazepines Scrn Not Detected (Not Detect) Urine Cocaine Screen Not Detected (Not Detect) U Marijuana (THC) Screen Not Detected (Not Detect) Ethyl Alcohol < 10 mg/dL Influenza Type A (PCR) (Negative) Influenza Type B (PCR) (Negative) RSV RNA Qual (PCR) (Negative) SARS-CoV-2 RNA (RT-PCR) (Negative) 10/29/24 10/29/24 Range/Units 08:58 10:34 WBC (4.8-10.8) X10*3/uL RBC (4.20-5.50) X10*6/uL Hgb (12.0-16.0) g/dl Hct (37.0-47.0) % MCV (80.0-98.0) fL MCH (27.0-33.0) pg MCHC (31.0-35.0) g/dl RDW (11.0-16.0) % Plt Count (160-400) X10*3/uL MPV (9.4-12.3) fL Immature Gran % (Auto) (0.0-0.4) % Neut % (Auto) (45-73) % Lymph % (Auto) (20-40) % [place] % (Auto) (2-11) % Eos % (Auto) (0-4) % Baso % (Auto) (0-2) % Lymph # (Auto) (1.2-4.9) X10*3/uL [place] # (Auto) (0.1-1.2) X10*3/uL Eos # (Auto) (0.0-0.4) X10*3/uL Baso # (Auto) (0.0-0.2) X10*3/uL Abs Immat Gran (auto) (0.00-0.03) X10*3/uL Absolute Neuts (auto) (2.0-8.3) x10*3/uL Absolute Nucleated RBC (0.0-0.012) X10*3/uL Nucleated RBC % (auto) (0.0-0.2) /100WBC Smear Tech's Comments PT (10.9-12.4) SEC INR (0.9-1.1) Sodium (135-145) mmol/L Potassium (3.3-5.1) mmol/L Chloride (96-108) mmol/L Carbon Dioxide (22-29) mmol/L Anion Gap (12-20) BUN (9-16) mg/dL Creatinine (0.5-1.4) mg/dL Estim Creat Clear Calc Estimated GFR Random Glucose (60-115) mg/dL Calcium (8.4-10.2) mg/dL Magnesium (1.6-2.6) mg/dL Total Bilirubin (0.0-1.0) mg/dL Direct Bilirubin (0.0-0.5) mg/dL AST (5-31) U/L ALT (0-31) U/L Alkaline Phosphatase (39-117) U/L Total Creatine Kinase 627 H (26-140) U/L Troponin I High Sens 79.7 H* (<3.5-17.0) ng/L Total Protein (6.5-8.0) g/dL Albumin (3.5-5.0) g/dL Urine Color Urine Appearance Urine pH (5.0-9.0) Ur Specific [place] (1.005-1.025) Urine Protein (Neg-Trace) mg/dL Urine Glucose (UA) (Negative) mg/dL Urine Ketones (Negative) mg/dL Urine Blood (Negative) Urine Nitrite (Negative) Ur Leukocyte Esterase (Negative) Urine RBC (0-2) /HPF Urine WBC (0-5) /HPF Ur Squamous Epith Cells (0-2) /HPF Urine Bacteria (None Seen) Hyaline Casts (0-2) /LPF Urine Opiates Screen (Not Detect) Ur Buprenorphine Scrn (Not Detect) ng/mL Ur Oxycodone Screen (Not Detect) ng/mL Urine Methadone Screen (Not Detect) ng/mL Urine Fentanyl Screen (Not Detect) Ur Barbiturates Screen (Not Detect) Ur Phencyclidine Scrn (Not Detect) Ur Amphetamines Screen (Not Detect) U Benzodiazepines Scrn (Not Detect) Urine Cocaine Screen (Not Detect) U Marijuana (THC) Screen (Not Detect) Ethyl Alcohol mg/dL Influenza Type A (PCR) NEGATIVE (Negative) Influenza Type B (PCR) NEGATIVE (Negative) RSV RNA Qual (PCR) NEGATIVE (Negative) SARS-CoV-2 RNA (RT-PCR) NEGATIVE (Negative) Independent Interpretation I performed an independent interpretation of an: Plain X-Ray and CT Scan Interpretation: EKG 10/29/2024 1016 - EKG normal sinus rhythm with inverted T-waves in V2 through V5. This was not seen on previous EKG. Discussed with urban planning teacher, see MDM Radiology Impression Discussion of test interpretation with radiology: I have reviewed the radiologist's reading. Radiologist Impression: No acute intracranial abnormality. No acute intracranial hemorrhage. No acute fracture or dislocation injury identified at the cervical spine. 1.5 cm low-attenuation left thyroid nodule. Recommend nonemergent thyroid ultrasound examination for further evaluation. Minimally displaced fracture present at the lateral malleolus of the left ankle Independent Historian Clinical information obtained from an independent historian. History obtained from or confirmed by: EMS Critical Care Time Critical Care Time Critical Care Time: Yes Total Critical Care Time: 75 Attestation: I have personally provided critical care time. Time includes review of lab data, radiology results, discussion with consultants, and monitoring for potential decompensation. Intervention performed as documented. Discharge Plan Discharge Clinical Impression: Hypertensive urgency, Fracture of lateral malleolus, Fall, Acute UTI
[2024-10-28 21:50] VITALS: BP 186/98
[2024-10-28 21:51] VITALS: BP 186/98; PULSE 86
[2024-10-28 21:53] LABS: Appearance Urine Cloudy; Glucose Urine UA Negative (Negative); PH 6.0 (5.0-9.0); Specific Gravity - Urine 1.015 (1.005-1.025); UMIC TRIGGER UACC YES
[2024-10-28 21:56] LABS: Hemoglobin 14.0 g/dl (12.0-16.0); NRBC Abs Auto 0.000 X10*3/uL (0.0-0.012); NRBC Pct Auto 0.0 /100WBC (0.0-0.2); PLT CLUMP 1; SCAN SMEAR FLAG 1
[2024-10-28 21:57] LABS: INTERNATIONAL NORM RATIO 1.9 (0.9-1.1); Prothrombin Time 22.3 SEC (10.9-12.4)
[2024-10-28 21:58] LABS: Hematocrit 41.3 % (37.0-47.0); Imm Gran Abs Auto 0.06 X10*3/uL (0.00-0.03); Imm Gran Pct Auto 0.7 % (0.0-0.4); Lymphocytes Absolute Auto 0.8 X10*3/uL (1.2-4.9); MANUAL DIFF FLAG SCAN; Mean Corpuscular HGB Conc 33.9 g/dl (31.0-35.0); Mean Corpuscular Hemoglobin 32.1 pg (27.0-33.0); Mean Corpuscular Volume 94.7 fL (80.0-98.0); Red Blood Count 4.36 X10*6/uL (4.20-5.50)
[2024-10-28 22:01] LABS: UACC Culture Trigger YES
[2024-10-28 22:02] LABS: Cannabinoid Screen Urine Not Detected (Not Detect)
[2024-10-28 22:05] LABS: White Blood Count 9.2 X10*3/uL (4.8-10.8)
[2024-10-28 22:06] LABS: Platelet Count 143 X10*3/uL (160-400)
[2024-10-28 22:19] LABS: Alanine Aminotransferase 27 U/L (0-31); Albumin Level 4.1 g/dL (3.5-5.0); Alkaline Phosphatase 74 U/L (39-117); Anion Gap 10 (12-20); Aspartate Amino Transferase 51 U/L (5-31); Blood Urea Nitrogen 28 mg/dL (9-16); Calcium 9.4 mg/dL (8.4-10.2); Carbon Dioxide 24 mmol/L (22-29); Chloride 113 mmol/L (96-108); Creatinine Clr Calc Pharmacy 20.0; Estimated Glomerular Filt Rate 33; Magnesium 2.0 mg/dL (1.6-2.6); Potassium 4.4 mmol/L (3.3-5.1); Sodium 143 mmol/L (135-145); Total Protein 6.7 g/dL (6.5-8.0)
[2024-10-28 22:22] LABS: Troponin-I High Sensitivity 68.0 ng/L (<3.5-17.0)
[2024-10-28 22:52] VITALS: BP 143/113; PULSE 79; RESP 18; O2SAT 96
[2024-10-28 23:42] VITALS: BP 142/72; PULSE 72; RESP 12; TEMP 36.2; O2SAT 98
[2024-10-29] VITALS (9 sets, daily range): BP systolic 104–162; BP diastolic 54–89; PULSE 66–80; RESP 14–18; TEMP 36.3–36.7; O2SAT 94–97; BMI 20.4
[2024-10-29 00:20] LABS: Troponin-I High Sensitivity 78.5 ng/L (<3.5-17.0)
--- NOTE | 2024-10-29 00:55 | PC.NURSE ---
Patient awake and alert. skin pwd, resp even and non labored, speaking in full, clear sentences. denies pain while resting on stretcher. splint applied to left lower extremity by physician, patient tolerated well. patient aware of plan of care for PT/CM consult.
--- NOTE | 2024-10-29 02:55 | MHC.EDTECH ---
pt cleaned, linens changed. purewick in place. pt resting comfortably at this time. call jenkins within reach.
--- NOTE | 2024-10-29 09:38 | MHC.CM.ED ---
Received case management consult overnight. Patient came to the ER after a fall. Physical therapy eval is pending d/t elevated troponins. Pippa FOSTER aware. Additional work up will be ordered. Continue to monitor for d/c needs.
--- NOTE | 2024-10-29 09:45 | ECG_ITS ---
Test Reason : elevated troponin Blood Pressure : */* mmHG Vent. Rate : 67 BPM Atrial Rate : 67 BPM P-R Int : 164 ms QRS Dur : 82 ms QT Int : 418 ms P-R-T Axes : 78 50 104 degrees QTcB Int : 441 ms Normal sinus rhythm Left ventricular hypertrophy with repolarization abnormality ( Sokolow-Torres , Romhilt-Reddy ) Abnormal ECG When compared with ECG of 28-Oct-2024 21:18, Premature atrial complexes are no longer Present LA interval has decreased T wave inversion now evident in Anterior leads Referred By: Pippa Reyes Electronically Signed By: TON LEON
[2024-10-29 09:50] LABS: Resp Syncy Virus RNA Qual PCR NEGATIVE (Negative); SARS COV2 PCR INHOUSE NEGATIVE (Negative)
[2024-10-29 11:07] LABS: Troponin-I High Sensitivity 79.7 ng/L (<3.5-17.0)
--- NOTE | 2024-10-29 13:56 | MHC.EDTECH ---
I did patients orthostatics but only supine and sitting positions
--- NOTE | 2024-10-29 14:43 | P.HPHOSP_ITS ---
History of Present Illness Date of Service: 10/29/24 Chief Complaint: Fall, elevated troponin 89 y/o F, hx of paroxysmal afib prior cardioversion on coumadin for stroke prevention, CKD 3, HFpEF, HTN, pulm HTN, history of breast CA, h/o malignant melanoma, HLD. She presented to the ED following a fall and being down for near 24 as she did not have her lifeline with her. The circumstance prior to the fall are unclear, she had some dizziness, but no shortness, chest pain or seizure llike activity, or LOC. Upon presentation she has mild elevation in troponin Is which are flat 68-->78-->79, CPK 627 and again no chest pain or SOB. ECG show no acute ischemic changes, CT head, C-spine are negative for acute finding. An Ankle xray show and a Minimally displaced fracture present at the lateral malleolus of the left ankle and splinted. UA is positive for UTI, and receiving Cefuroxime. Review of Systems 2 Review of Systems: Gen: no fever Resp: no sob, no cough CV: no chest, no LEWIS, no leg edema GI: No n/v, no abd pain Neuro: No confusion, no dizziness Yes all other systems are reviewed and are negative [facility] Medical History PAF (paroxysmal atrial fibrillation) Essential hypertension Pulmonary hypertension Non-rheumatic tricuspid stenosis with insufficiency Abnormal myocardial perfusion study Chronic heart failure with preserved ejection fraction (HFpEF) Hiatal hernia Diverticulitis Gastro-esophageal reflux disease without esophagitis High cholesterol Hypertension Atrial fibrillation Family History Father Heart disease Mother Colon cancer Surgical History S/P total abdominal hysterectomy History of cardioversion H/O mastectomy Social History Household Members: None Housing: Apartment Are you a primary care transport nurse to a significant other at home: No Do you presently have visiting nurse or other home services: No Alcohol intake: never Patient Tobacco Use Status: Never used Tobacco Smoked in Last 30 Days: No e-Cigarette/Vaping Use: Never Used Second Hand Smoke Exposure: No Use of substances other than those prescribed or required for medical reasons: No Currently Displaying Signs/Symptoms of Drug Intoxication Withdrawal: No Advance Directives: Yes Advance Directives on File: Yes Advance Directives Date on File: 01/16/20 service: No Current occupational status: retired Cognitive needs: No Hearing needs: No Vision needs: No Meds Allergies Allergy/AdvReac Type Severity Reaction Status Date / Time No Known Allergies (No Known Allergy Verified 10/28/24 21:06 Allergies*) Active Medications: Current Medications Amiodarone HCl (Amiodarone Hcl 200 Mg Tablet) 100 mg PO DAILY [facility] Amlodipine Besylate (Amlodipine Besylate 5 Mg Tablet) 5 mg PO DAILY [facility]; Protocol Atorvastatin Calcium (Atorvastatin Calcium 20 Mg Tablet) 20 mg PO DAILY [facility] Azelastine HCl (Azelastine Hcl Nasal 137 Mcg/[place] 30 Ml) 1 spray NOSTRIL-B BID [facility] Calcium Carbonate (Calcium Oyster Shell Elemental 500 Mg Tablet) 500 mg PO DAILY [facility] Cefuroxime Axetil (Cefuroxime Axetil 250 Mg Tablet) 250 mg PO BID [facility] Last Admin: 10/29/24 08:52 Dose: 250 mg Metoprolol Succinate (Metoprolol Succinate Er 50 Mg Tab.Er.24h) 50 mg PO DAILY [facility]; Protocol Omeprazole (Omeprazole 20 Mg Capsule.Dr) 20 mg PO DAILY PRN PRN Reason: Heartburn Warfarin Sodium (Warfarin Sodium 2 Mg Tablet) 2 mg PO SuMoTuWeFrSa@1800 [facility] Warfarin Sodium (Warfarin Sodium 4 Mg Tablet) 4 mg PO Th@1800 [facility] Home Medications ?Medication ?Instructions ?Recorded ?Confirmed ?Last Taken ?Type calcium carbonate (Calcium 600) 600 mg PO DAILY 10/29/24 10/26/24 History omeprazole 20 mg capsule,delayed 20 mg PO DAILY PRN He artburn 07/08/24 10/29/24 Unknown History release acetaminophen 500 mg tablet 1,000 mg PO Q6H PRN Pain 0 10/29/24 10/29/24 Unknown History amiodarone 200 mg tablet 100 mg PO DAILY 10/29/2410/26/24 History warfarin 2 mg tablet 2 mg PO SUMOTUWEFRSA@1800 10/29/24 10/26/24 History warfarin 2 mg tablet 4 mg PO TH@1800 10/29/2410/23/24 History Physical Exam 2 Vital Signs and Narrative: Vital Signs: Last Vital Signs Temp 97.5 F 10/29/24 04:59 Pulse 71 10/29/24 14:05 Resp 16 10/29/24 14:05 BP 114/59 L 10/29/24 14:05 Pulse Ox 95 10/29/24 14:05 O2 Del Method Room Air 10/29/24 14:05 BMI result Body Mass Index 19.9 Const: Other: General: AO X 3, no acute distress Resp: CTA bilateral CVS: S1,S2,RRR GI: +BS, NT, no distention Skin: No rash Ext: splintee left ankle Neuro: motor grossly intact Psych: appropriate affect Results Labs 10/28/24 21:32 10/28/24 21:33 Labs: Laboratory Results - last 24 hr 10/28/24 10/28/24 10/29/24 21:32 21:33 08:58 MCV 94.7 MCH 32.1 MCHC 33.9 RDW 13.8 Plt Count 143 L MPV 9.8 Immature Gran % (Auto) 0.7 H Neut % (Auto) 77.3 H Lymph % (Auto) 8.5 L Tucker % (Auto) 13.1 H Eos % (Auto) 0.1 Baso % (Auto) 0.3 Lymph # (Auto) 0.8 L Tucker # (Auto) 1.2 Eos # (Auto) 0.0 Baso # (Auto) 0.0 Abs Immat Gran (auto) 0.06 H Absolute Neuts (auto) 7.1 Absolute Nucleated RBC 0.000 Nucleated RBC % (auto) 0.0 Smear Tech's Comments VERIFIED PT 22.3 H INR 1.9 H Anion Gap 10 L Estim Creat Clear Calc 20.0 Estimated GFR 33 Random Glucose 129 H Calcium 9.4 Magnesium 2.0 Total Bilirubin 1.4 H Direct Bilirubin 0.5 AST 51 H ALT 27 Alkaline Phosphatase 74 Total Creatine Kinase 668 H Total Protein 6.7 Albumin 4.1 Urine Color Yellow Urine Appearance Cloudy Urine pH 6.0 Ur Specific [place] 1.015 Urine Protein 100 (2+) H Urine Glucose (UA) Negative Urine Ketones Negative Urine Blood Moderate (2+) H Urine Nitrite Positive H Ur Leukocyte Esterase Moderate (2+) H Urine RBC 0-2 Urine WBC 6-10 Ur Squamous Epith Cells 3-5 Urine Bacteria 4+ Hyaline Casts 0-2 Urine Opiates Screen Not Detected Ur Buprenorphine Scrn Not Detected Ur Oxycodone Screen Not Detected Urine Methadone Screen Not Detected Urine Fentanyl Screen Not Detected Ur Barbiturates Screen Not Detected Ur Phencyclidine Scrn Not Detected Ur Amphetamines Screen Not Detected U Benzodiazepines Scrn Not Detected Urine Cocaine Screen Not Detected U Marijuana (THC) Screen Not Detected Ethyl Alcohol < 10 Influenza Type A (PCR) NEGATIVE Influenza Type B (PCR) NEGATIVE RSV RNA Qual (PCR) NEGATIVE SARS-CoV-2 RNA (RT-PCR) NEGATIVE 10/29/24 10:34 MCV MCH MCHC RDW Plt Count MPV Immature Gran % (Auto) Neut % (Auto) Lymph % (Auto) Tucker % (Auto) Eos % (Auto) Baso % (Auto) Lymph # (Auto) Tucker # (Auto) Eos # (Auto) Baso # (Auto) Abs Immat Gran (auto) Absolute Neuts (auto) Absolute Nucleated RBC Nucleated RBC % (auto) Smear Tech's Comments PT INR Anion Gap Estim Creat Clear Calc Estimated GFR Random Glucose Calcium Magnesium Total Bilirubin Direct Bilirubin AST ALT Alkaline Phosphatase Total Creatine Kinase 627 H Total Protein Albumin Urine Color Urine Appearance Urine pH Ur Specific [place] Urine Protein Urine Glucose (UA) Urine Ketones Urine Blood Urine Nitrite Ur Leukocyte Esterase Urine RBC Urine WBC Ur Squamous Epith Cells Urine Bacteria Hyaline Casts Urine Opiates Screen Ur Buprenorphine Scrn Ur Oxycodone Screen Urine Methadone Screen Urine Fentanyl Screen Ur Barbiturates Screen Ur Phencyclidine Scrn Ur Amphetamines Screen U Benzodiazepines Scrn Urine Cocaine Screen U Marijuana (THC) Screen Ethyl Alcohol Influenza Type A (PCR) Influenza Type B (PCR) RSV RNA Qual (PCR) SARS-CoV-2 RNA (RT-PCR) Assessment and Plan (1) Acute UTI: Status: Acute (2) Fall: Status: Acute Plan 89 y/o F, hx of paroxysmal afib prior cardioversion on coumadin for stroke prevention, CKD 3, HFpEF, HTN, pulm HTN, history of breast CA, h/o malignant melanoma, HLD presenting with fall, lightheadaness and found to have elevated troponin, leve, UTI, and left ankle fracture. Elevated tropon I, rule IN, troponin fairly flat, no ecg changes no chest pain, likely type 2 IN related to fall, high CK and CKD monitor, if clinically change then cardiology eval Fall ? 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 Splint, ortho follow up, can be outpatient, pain meds PRN UTI Cefuroxime, check cutlure HTN, controlled resume metoprolol, hold HCTZ HLD continue Lipitor CKD3 B, at baseline Paroxysmal AFIB, in sinus continue amio continue coumadin with INR goal of 2-3 Osteoprosis Raloxifene Chronic HFpEF, compensated continue metoprolol and Norvasc Thyroid nodule outpatient US DVT prophylaxis: coumaind Full code Quality Stroke Does the patient have a stroke diagnosis?: No VTE Prior VTE?: No VTE Risk Level:: Medical - moderate - high VTE Device Contraindication: N/A - Device Ordered VTE Drug Contraindication: N/A - Med Ordered
--- NOTE | 2024-10-29 14:44 | PHA.MEDREC ---
Pharmacy Consult ? Medication Reconciliation Pharmacy reviewed med rec done by nursing. Spoke with pt and she had a list she use and confirmed her medications with me. Pt confirmed her Warfarin 2mg tab stating she takes 2 mg on SUMOTUWEFRSA and 4 mg (2 tabs) on TH.
--- NOTE | 2024-10-29 14:49 | PHA.MEDREC ---
Addendum entered by Emi Manzo RPh 10/29/24 15:31: MED REC REVIEWED BY [facility] Original Note: Pharmacy Consult ? Medication Reconciliation Pharmacy has completed the medication reconciliation. Spoke with pt and she had a list she use and confirmed her medications with me. Pt confirmed her Warfarin 2mg tab stating she takes 2 mg on TUWEFRSA and 4 mg (2 tabs) on . Pt also takes Tums now at home instead of Omeprazole but didnt know what ones she used at this time.
[2024-10-29 16:20] LABS: INTERNATIONAL NORM RATIO 1.8 (0.9-1.1); Prothrombin Time 20.3 SEC (10.9-12.4)
--- NOTE | 2024-10-29 18:19 | MHC.EDTECH ---
Patient refused her dinner but I left the fruit and drink
[2024-10-30] VITALS (8 sets, daily range): BP systolic 92–142; BP diastolic 46–76; PULSE 66–75; RESP 16–20; TEMP 36.1–36.9; O2SAT 94–95
[2024-10-30 07:20] LABS: INTERNATIONAL NORM RATIO 1.6 (0.9-1.1); Prothrombin Time 17.8 SEC (10.9-12.4)
[2024-10-30] MEDS: Calcium Oyster Shell Elemental 500 MG TABLET PO (08:58)
[2024-10-30] MEDS: Metoprolol Succinate ER 50 MG TAB.ER.24H PO (08:58)
--- NOTE | 2024-10-30 09:21 | MHC.CM.PN ---
Niru 10/30/24, Pt. lives alone, she has home delivered meals, and no other services. PCP confirmed: Ruben Dick, HCP on file and confirmed: Her brother, Joseph. For DME, pt. has a walker and a cane. DCP: TBD, PT eval pending. CM to follow for DC needs.
--- NOTE | 2024-10-30 13:36 | P.PNIM_ITS ---
Subjective Subjective Date of Service: 10/30/24 Interval History: f/u on fall, elevated troponin, left ankle frature has no chest pain or sob, pain left foot with movment Review of Systems Gen: no fever Resp: no sob, no cough CV: no chest, no LEWIS, no leg edema GI: No n/v, no abd pain Neuro: No confusion, no dizziness Physical Exam 2 Vital Signs: Vital Signs: Last Vital Signs Temp 97.0 F 10/30/24 11:49 Pulse 68 10/30/24 11:49 Resp 20 10/30/24 11:49 BP 109/46 L 10/30/24 11:49 Pulse Ox 95 10/30/24 11:49 O2 Del Method Room Air 10/30/24 11:49 BMI result Body Mass Index 20.4 Const: Other: General: AO X 3, no acute distress Resp: CTA bilateral CVS: S1,S2,RRR GI: +BS, NT, no distention Skin: No rash Ext: splintee left ankle Neuro: motor grossly intact Psych: appropriate affect Objective Data Active Medications Acetaminophen (Acetaminophen 325 Mg Tablet) 650 mg PO Q4H PRN PRN Reason: Pain, Mild 1-3,fever,headache Last Admin: 10/30/24 05:34 Dose: 650 mg Documented By: TONE Amiodarone HCl (Amiodarone Hcl 200 Mg Tablet) 100 mg PO DAILY [facility] Last Admin: 10/30/24 08:58 Dose: 100 mg Documented By: MICKEY Amlodipine Besylate (Amlodipine Besylate 5 Mg Tablet) 5 mg PO DAILY [facility]; Protocol Last Admin: 10/30/24 08:58 Dose: 5 mg Documented By: MICKEY Atorvastatin Calcium (Atorvastatin Calcium 20 Mg Tablet) 20 mg PO DAILY [facility] Last Admin: 10/30/24 08:58 Dose: 20 mg Documented By: MICKEY Calcium Carbonate (Calcium Oyster Shell Elemental 500 Mg Tablet) 500 mg PO DAILY [facility] Last Admin: 10/30/24 08:58 Dose: 500 mg Documented By: MICKEY Cefuroxime Axetil (Cefuroxime Axetil 250 Mg Tablet) 250 mg PO BID [facility] Last Admin: 10/30/24 08:57 Dose: 250 mg Documented By: MICKEY Metoprolol Succinate (Metoprolol Succinate Er 50 Mg Tab.Er.24h) 50 mg PO DAILY [facility]; Protocol Last Admin: 10/30/24 08:58 Dose: 50 mg Documented By: MICKEY Omeprazole (Omeprazole 20 Mg Capsule.) 20 mg PO DAILY PRN PRN Reason: Heartburn Warfarin Sodium (Warfarin Sodium 2 Mg Tablet) 2 mg PO SuMoTuWeFrSa@1800 [facility] Warfarin Sodium (Warfarin Sodium 4 Mg Tablet) 4 mg PO Th@1800 [facility] Labs 10/28/24 21:32 10/28/24 21:33 Labs: Laboratory Results - last 24 hr 10/29/24 10/29/24 10/29/24 15:54 16:01 16:02 Hold Purple Top SEE NOTE PT 20.3 H INR 1.8 H Hold Yellow Top See Note 10/30/24 06:49 Hold Purple Top PT 17.8 H INR 1.6 H Hold Yellow Top Microbiology Microbiology Results: Microbiology 10/28/24 Unknown Urine Culture - Preliminary Urine clean catch - Clean Catch Midstream Gram negative elissa Assessment and Plan (1) Persistent atrial fibrillation: Status: Deleted (2) Acute kidney injury: Status: Resolved Plan 89 y/o F, hx of paroxysmal afib prior cardioversion on coumadin for stroke prevention, CKD 3, HFpEF, HTN, pulm HTN, history of breast CA, h/o malignant melanoma, HLD presenting with fall, lightheadaness and found to have elevated troponin, leve, UTI, and left ankle fracture. Elevated tropon I, rule out GA, troponin fairly flat, no ecg changes no chest pain, likely type 2 GA related to fall, high CK and CKD monitor, if clinically change then cardiology eval Fall ? syncope, circumstances unclear possible mechanical vs orthostatic No arrhythmia on tele Minimally displaced fracture present at the lateral malleolus of the left ankle. Splint, ortho follow up, can be outpatient, pain meds PRN UTI Cefuroxime, culture = GNR HTN, controlled resume metoprolol, hold HCTZ HLD continue Lipitor CKD3 B, at baseline Paroxysmal AFIB, in sinus continue amio continue coumadin with INR goal of 2-3 Osteoprosis Raloxifene Chronic HFpEF, compensated continue metoprolol and Norvasc Thyroid nodule outpatient US DVT prophylaxis: coumaind Full code Dispo: To STR Quality Stroke Does the patient have a stroke diagnosis?: No VTE Prior VTE?: No VTE Risk Level:: Medical - moderate - high VTE Device Contraindication: N/A - Device Ordered VTE Drug Contraindication: N/A - Med Ordered
--- NOTE | 2024-10-30 14:15 | PM.CNOR ---
History of Present Illness HPI Consult date: 10/30/24 Chief complaint: htn, fall Narrative: Patient is an 89-year-old female who is admitted to the hospital for hypertension after a fall Resting comfortably in bed Reports she has been totally nonweightbearing on the left lower extremity per recommendations from the ED Patient is in a splint Pain very well managed No other acute complaints or concerns at this time Review of Systems Review of Systems: Yes all other systems are reviewed and are negative PMFSH Past Medical History Medical History PAF (paroxysmal atrial fibrillation) Essential hypertension Pulmonary hypertension Non-rheumatic tricuspid stenosis with insufficiency Abnormal myocardial perfusion study Chronic heart failure with preserved ejection fraction (HFpEF) Hiatal hernia Diverticulitis Gastro-esophageal reflux disease without esophagitis High cholesterol Hypertension Atrial fibrillation Family History Family History Father Heart disease Mother Colon cancer Surgical History Surgical History S/P total abdominal hysterectomy History of cardioversion H/O mastectomy Social History Social History Household Members: None Housing: Apartment Are you a primary childcare center administrator to a significant other at home: No Do you presently have visiting nurse or other home services: No Alcohol intake: never Patient Tobacco Use Status: Never used Tobacco e-Cigarette/Vaping Use: Never Used Second Hand Smoke Exposure: No Advance Directives Date on File: 01/16/20 service: No Current occupational status: retired Cognitive needs: No Hearing needs: No Vision needs: No Meds Allergies Allergy/AdvReac Type Severity Reaction Status Date / Time No Known Allergies (No Known Allergy Verified 10/28/24 21:06 Allergies*) Active Medications: Current Medications Acetaminophen (Acetaminophen 325 Mg Tablet) 650 mg PO Q4H PRN PRN Reason: Pain, Mild 1-3,fever,headache Last Admin: 10/30/24 05:34 Dose: 650 mg Amiodarone HCl (Amiodarone Hcl 200 Mg Tablet) 100 mg PO DAILY [facility] Last Admin: 10/30/24 08:58 Dose: 100 mg Amlodipine Besylate (Amlodipine Besylate 5 Mg Tablet) 5 mg PO DAILY [facility]; Protocol Last Admin: 10/30/24 08:58 Dose: 5 mg Atorvastatin Calcium (Atorvastatin Calcium 20 Mg Tablet) 20 mg PO DAILY [facility] Last Admin: 10/30/24 08:58 Dose: 20 mg Calcium Carbonate (Calcium Oyster Shell Elemental 500 Mg Tablet) 500 mg PO DAILY [facility] Last Admin: 10/30/24 08:58 Dose: 500 mg Cefuroxime Axetil (Cefuroxime Axetil 250 Mg Tablet) 250 mg PO BID [facility] Last Admin: 10/30/24 08:57 Dose: 250 mg Metoprolol Succinate (Metoprolol Succinate Er 50 Mg Tab.Er.24h) 50 mg PO DAILY [facility]; Protocol Last Admin: 10/30/24 08:58 Dose: 50 mg Omeprazole (Omeprazole 20 Mg Capsule.Dr) 20 mg PO DAILY PRN PRN Reason: Heartburn Warfarin Sodium (Warfarin Sodium 2 Mg Tablet) 2 mg PO SuMoTuWeFrSa@1800 [facility] Warfarin Sodium (Warfarin Sodium 5 Mg Tablet) 5 mg PO Th@1800 [facility] Home Medications ?Medication ?Instructions ?Recorded ?Confirmed ?Last Taken ?Type calcium carbonate (Calcium 600) 600 mg PO DAILY 07/12/23 10/29/24 10/26/24 History omeprazole 20 mg capsule,delayed 20 mg PO DAILY PRN Heartburn 07/08/24 10/29/24 Unknown History release acetaminophen 500 mg tablet 1,000 mg PO Q6H PRN Pain 10/29/24 10/29/24 Unknown History amiodarone 200 mg tablet 100 mg PO DAILY 10/29/24 10/29/24 10/26/24 History warfarin 2 mg tablet 2 mg PO SUMOTUWEFRSA@1800 10/29/24 10/29/24 10/26/24 History warfarin 2 mg tablet 4 mg PO TH@1800 10/29/24 10/29/24 10/23/24 History Physical Exam Vital Signs: Vital Signs: Last Vital Signs Temp 97.0 F 10/30/24 11:49 Pulse 68 10/30/24 11:49 Resp 20 10/30/24 11:49 BP 109/46 L 10/30/24 11:49 Pulse Ox 95 10/30/24 11:49 O2 Del Method Room Air 10/30/24 11:49 BMI result Body Mass Index 20.4 Extrem: Other: Splint on left ankle clean, dry, intact No evidence of surrounding erythema, ecchymosis No evidence of infection Patient is able to flex and extend the digits of the left foot without difficulty Compartments soft, nontender Distal sensation intact Capillary refill brisk Results Labs 10/28/24 21:32 10/28/24 21:33 Labs: Abnormal lab results 10/29/24 10/30/24 Range/Units 15:54 06:49 PT 20.3 H 17.8 H (10.9-12.4) SEC INR 1.8 H 1.6 H (0.9-1.1) H & H 10/28/24 Range/Units 21:32 Hgb 14.0 (12.0-16.0) g/dl Hct 41.3 (37.0-47.0) % Coagulation 10/28/24 10/29/24 10/30/24 Range/Units 21:32 15:54 06:49 INR 1.9 H 1.8 H 1.6 H (0.9-1.1) All other labs normal. Assessment and Plan (1) Closed fracture of left lateral malleolus: Status: Acute Plan 1. Left lateral malleolus fracture Date of injury 10/28/2024 Patient is educated about this condition Patient is educated about the typical recovery course Continue nonweightbearing on left lower extremity Keep splint clean, dry, intact Follow-up with orthopedics outpatient Appointment scheduled for 11/03/2024 at 08:45 Continue with all other recommendations per Medicine Procedures Date of Service Date of Service: 10/30/24
[2024-10-31 04:00] VITALS: BP 148/74; PULSE 68; RESP 16; TEMP 36.2; O2SAT 96
[2024-10-31 07:39] VITALS: BP 128/74; PULSE 71; RESP 20; TEMP 36.3; O2SAT 95
[2024-10-31 08:13] LABS: Hematocrit 42.0 % (37.0-47.0); Hemoglobin 14.2 g/dl (12.0-16.0); Mean Corpuscular HGB Conc 33.8 g/dl (31.0-35.0); Mean Corpuscular Hemoglobin 32.5 pg (27.0-33.0); Mean Corpuscular Volume 96.1 fL (80.0-98.0); NRBC Abs Auto 0.000 X10*3/uL (0.0-0.012); NRBC Pct Auto 0.0 /100WBC (0.0-0.2); Platelet Count 150 X10*3/uL (160-400); Red Blood Count 4.37 X10*6/uL (4.20-5.50); White Blood Count 7.2 X10*3/uL (4.8-10.8)
[2024-10-31] MEDS: Calcium Oyster Shell Elemental 500 MG TABLET PO (08:15)
[2024-10-31] MEDS: Metoprolol Succinate ER 50 MG TAB.ER.24H PO (08:15)
[2024-10-31 08:19] LABS: INTERNATIONAL NORM RATIO 1.6 (0.9-1.1); Prothrombin Time 17.9 SEC (10.9-12.4)
[2024-10-31 08:25] LABS: Anion Gap 11 (12-20); Blood Urea Nitrogen 42 mg/dL (9-16); Calcium 9.2 mg/dL (8.4-10.2); Carbon Dioxide 23 mmol/L (22-29); Chloride 107 mmol/L (96-108); Creatinine Clr Calc Pharmacy 18.4; Estimated Glomerular Filt Rate 29; Potassium 4.3 mmol/L (3.3-5.1); Sodium 137 mmol/L (135-145)
[2024-10-31 11:53] VITALS: BP 96/57; PULSE 72; RESP 20; TEMP 36.1; O2SAT 94
--- NOTE | 2024-10-31 13:02 | PM.DS ---
DS: Providers Provider Date of Service: 10/31/24 Date of admission: 10/29/24 12:57 Date of discharge: 10/31/24 Primary care physician: Ruben Dick PA-C Consults: 10/30/24 13:33 Consult to Orthopedics Routine Consulting Provider: [facility] Reason for consultation: left lat maleolar fracture ? need for intevention and weight bearing status Has provider been notified: No 10/31/24 08:34 Consult to Wound Care Routine Reason for consultation: redness to coccyx , bruises to buttocks ,bruises to left hip DS: Diagnosis Discharge Diagnosis (1) Closed fracture of left lateral malleolus: Status: Acute DS: Summary Hospital Course Hospital Course: Chief Complaint: Fall, elevated troponin 89 y/o F, hx of paroxysmal afib prior cardioversion on coumadin for stroke prevention, CKD 3, HFpEF, HTN, pulm HTN, history of breast CA, h/o malignant melanoma, HLD. She presented to the ED following a fall and being down for near 24 as she did not have her lifeline with her. The circumstance prior to the fall are unclear, she had some dizziness, but no shortness, chest pain or seizure llike activity, or LOC. Upon presentation she has mild elevation in troponin Is which are flat 68-->78-->79, CPK 627 and again no chest pain or SOB. ECG show no acute ischemic changes, CT head, C-spine are negative for acute finding. An Ankle xray show and a Minimally displaced fracture present at the lateral malleolus of the left ankle and splinted. UA is positive for UTI, and receiving Cefuroxime Hospital course: 89 y/o F, hx of paroxysmal afib prior cardioversion on coumadin for stroke prevention, CKD 3, HFpEF, HTN, pulm HTN, history of breast CA, h/o malignant melanoma, HLD presenting with fall, lightheadaness and found to have elevated troponin, leve, UTI, and left ankle fracture. Elevated tropon I, ruled out OH, patient was not having chest pain and no ischmeic changes on ECG, troponin fairly flat, likely type 2 OH related to fall, high CK and CKD. She was monitored and no further testing or evaluation was warranted Fall ? syncope, circumstances unclear possible mechanical vs orthostatic No arrhythmia on tele and has reamined stable. Minimally displaced fracture present at the lateral malleolus of the left ankle. Splint in place. She was seen by ortho with the folloring recommendation: Continue nonweightbearing on left lower extremity Keep splint clean, dry, intact Follow-up with orthopedics outpatient Appointment scheduled for 11/03/2024 at 08:45 UTI, cutlure growing e. coli sensitivie to ceftriaxone, she has been on Cefuroxime 250 mg twice daily since 10/28 and will treat for 3 more days HTN, have been on lower side. Stopped Norvasc and HCTZ, continue metoprolol HLD continue Lipitor CKD3 B, at baseline Paroxysmal AFIB, in sinus continue amio continue coumadin with INR goal of 2-3, INR is 1.6 today, suggest an additional 2 mg of coumadin today Osteoprosis Raloxifene Chronic HFpEF, compensated continue metoprolol at a reduced dose of 25 mg bid from 50 twice daily Thyroid nodule outpatient US Time Attestation Discharge Coordination Time (in mins): 45 Quality: Safe Use of Opioids Does Pt have an Active Cancer Diagnosis on the Problem List?: No Quality: Stroke Does the patient have a stroke diagnosis?: No Physical Exam Vital Signs: Vital Signs: Last Vital Signs Temp 97.0 F 10/31/24 11:53 Pulse 72 10/31/24 11:53 Resp 20 10/31/24 11:53 BP 96/57 L 10/31/24 11:53 Pulse Ox 94 10/31/24 11:53 O2 Del Method Room Air 10/31/24 11:53 BMI result Body Mass Index 20.4 DS: Data Data Completed and Pending Completed studies during hospitalization [Text1]: Procedures Faith of Cardiac Rhythm, Single (02/12/20) Labs on day of discharge: Laboratory Results - last 24 hr 10/31/24 08:04 WBC 7.2 RBC 4.37 Hgb 14.2 Hct 42.0 MCV 96.1 MCH 32.5 MCHC 33.8 RDW 13.9 Plt Count 150 L MPV 10.1 Absolute Nucleated RBC 0.000 Nucleated RBC % (auto) 0.0 PT 17.9 H INR 1.6 H Sodium 137 Potassium 4.3 Chloride 107 Carbon Dioxide 23 Anion Gap 11 L BUN 42 H Creatinine 1.66 H Estim Creat Clear Calc 18.4 Estimated GFR 29 Random Glucose 103 Calcium 9.2 Discharge Plan Discharge Anticipated Discharge Date/Time: 10/31/24 13:22 Patient Disposition: Xfer SNF Discharge Diagnosis: Fall, ankle fracture, UTI Referrals: [facility] [Outside] - 1 Week Ruben Dick PA-C [Primary Care Provider, Internal Medicine] - 1 Week Rebecca Velez PA-C [Physician Dovetailer, Orthopedics] - 1 Week Referral Note: 11/03/24 08:45 [facility] Rebecca Velez PA-C Discharge Medications: New cefuroxime axetil 250 mg Tablet 250 mg PO BID Qty: 6 0RF Continued atorvastatin 20 mg tablet 20 mg PO DAILY Qty: 90 3RF amiodarone 200 mg tablet 100 mg PO DAILY warfarin 2 mg tablet 2 mg PO SUMOTUWEFRSA@1800 warfarin 2 mg tablet 4 mg PO TH@1800 acetaminophen 500 mg Tablet 1,000 mg PO Q6H PRN (Reason: Pain) raloxifene 60 mg tablet 60 mg PO DAILY Qty: 90 4RF (DME) Ultra-Light [facility]ator [facility] See Rx Instructions .Route Qty: 1 0RF Rx Instructions: As directed calcium carbonate [Calcium 600] 600 mg calcium (1,500 mg) tablet 600 mg PO DAILY omeprazole 20 mg capsule,delayed release(DR/EC) 20 mg PO DAILY PRN (Reason: Heartburn) Changed metoprolol succinate 50 mg tablet extended release 24 hr 25 mg PO DAILY Qty: 90 1RF Discontinued amlodipine 5 mg tablet 5 mg PO DAILY Qty: 90 2RF Discharge Orders: Discharge Order (Routine); Ordered 10/31/24 Ordered By: Kyler Araujo Diet: Advance to usual diet Activity on Discharge: As tolerated Stand Alone Forms: Patient Portal Discharge page Print Language: Burmese Other Ambulatory Orders: US thyroid (Routine) Timeframe: 2 Weeks Facility: [facility] - Location: Ultrasound Ordered By: Kyler Araujo Activity Restrictions/Additional Instructions: On your CT scan of the neck, we incidentally saw a nodule on your thyroid on the left side. Please follow-up with the primary care physician, you may need an ultrasound Care Plan Goals: recovery from fall, uti, Health Concerns: fall, uti, thyroid nodule, elevated troponin Plan of Treatment: take cefuroxime for UTI You will need thyroid US for thyroid nodule Follow up with orthopedic surgery for ankle fracture Continue nonweightbearing on left lower extremity Keep splint clean, dry, intact Follow-up with orthopedics outpatient Appointment scheduled for 11/03/2024 at 08:45 [id number], [place] [id number] Assessment: see above
[2024-10-31 13:54] VITALS: BP 100/64
--- NOTE | 2024-10-31 13:58 | MHC.CM.PN ---
Pt has been medically cleared to OR, she will go to [place] for STR via [facility].
== END 2024-10-31 15:16 | disposition skilled nursing facility (03) ==
LOC: HO.ED 22:27 → HO.EDOVER 10-29 13:50 → HO.IMC 10-29 19:30
PROVIDERS: Physician Assistant Medical; Admitting Provider Internal Medicine; Emergency Provider Emergency Medicine; PCP Physician Assistant; Visit Provider Internal Medicine
DX: S82.62XA Displaced fracture of lateral malleolus of left fibula, initial encounter for closed fracture (principal); W19.XXXA Unspecified fall, initial encounter; Y93.9 Activity, unspecified; Y92.9 Unspecified place or not applicable; Y99.9 Unspecified external cause status; N39.0 Urinary tract infection, site not specified; I16.0 Hypertensive urgency; R42 Dizziness and giddiness; E04.1 Nontoxic single thyroid nodule; R79.89 Other specified abnormal findings of blood chemistry; I48.0 Paroxysmal atrial fibrillation; I13.0 Hypertensive heart and chronic kidney disease with heart failure and stage 1 through stage 4 chronic kidney disease, or unspecified chronic kidney disease; N18.32 Chronic kidney disease, stage 3b; I50.9 Heart failure, unspecified; Z79.899 Other long term (current) drug therapy; Z79.01 Long term (current) use of anticoagulants; Z03.818 Encounter for observation for suspected exposure to other biological agents ruled out
CPT/HCPCS: 36415; 70450; 72125; 73600; 73620; 80048; 80076; 80307; 81001; 82550; 83735; 84484; 85025; 85027; 85610; 87086; 87088; 87186; 87637; 93005; 97162; 99222; 99285

== ENCOUNTER → 2024-10-28 21:01 | Outpatient (BNV) | payer MEDICARE, SELFPAY | PROVIDERS: Emergency Provider Emergency Medicine; PCP Physician Assistant; Visit Provider Radiology Diagnostic Radiology | DX: R42 Dizziness and giddiness (principal); W01.0XXA Fall on same level from slipping, tripping and stumbling without subsequent striking against object, initial encounter | CPT/HCPCS: 70450; 72125; 73600; 73620 ==

== ENCOUNTER → 2024-10-28 21:13 | Outpatient (BNV) | payer MEDICARE, SELFPAY | PROVIDERS: Admitting Provider Internal Medicine; Emergency Provider Emergency Medicine; PCP Physician Assistant; Visit Provider Internal Medicine | DX: I44.0 Atrioventricular block, first degree (principal); I49.1 Atrial premature depolarization | CPT/HCPCS: 93010 ==

== ENCOUNTER → 2024-10-29 09:45 | Outpatient (BNV) | payer MEDICARE, SELFPAY | PROVIDERS: Admitting Provider Internal Medicine; Emergency Provider Emergency Medicine; PCP Physician Assistant; Visit Provider Internal Medicine | DX: I51.7 Cardiomegaly (principal) | CPT/HCPCS: 93010 ==

== ENCOUNTER → 2024-10-29 12:57 | Outpatient (BNV) | payer MEDICARE, SELFPAY | PROVIDERS: Admitting Provider Internal Medicine; Emergency Provider Emergency Medicine; PCP Physician Assistant; Visit Provider Internal Medicine | DX: N39.0 Urinary tract infection, site not specified (principal); I48.19 Other persistent atrial fibrillation; N17.9 Acute kidney failure, unspecified | CPT/HCPCS: 99223; 99232 ==

== ENCOUNTER → 2024-10-29 12:57 | Outpatient (BNV) | payer MEDICARE, SELFPAY | PROVIDERS: Admitting Provider Internal Medicine; Emergency Provider Emergency Medicine; PCP Physician Assistant | DX: S82.62XA Displaced fracture of lateral malleolus of left fibula, initial encounter for closed fracture (principal) | CPT/HCPCS: 99222 ==

== ENCOUNTER 2024-11-03 08:06 | Outpatient (REF) | payer MEDICARE, SELFPAY ==
--- NOTE | ~2024-11-03 | XR_ITS ---
CLINICAL HISTORY: M25.572 - Pain in left ankle and joints of left foot --- Additional Notes or Special Instructions: splint off 3 view left ankle Comparison: CR - XR ANKLE LT 2V - 10/28/24 21:38 EDT Findings: No change in distal fibular fracture. No significant arthritic change or erosions. No ankle effusion. No radiopaque foreign body. IMPRESSION: No change in distal fibular fracture. This document has been electronically signed by: Dharmesh Hernandez MD on 11/04/2024 14:47:22
--- OUTSIDE RECORDS SUMMARY | 2024-11-04 08:09 | XMS_ITS | Clinical Summary ---
Author Organization [facility] Address [address] [place] [address] [address] [place] [address] Phone Care Team Providers Care Molecular Biology Director Name Role Phone Ruben Dick Primary Care Provider [phone] Allergies No known active allergies Medications amiodarone [...] patient's age to complete this topic Insurance [facility] Care Teams Molecular Biology Director Relationship Specialty Start Date End Date Ruben Dick PA [address] [facility], [address] [place] [address] PCP - General Physician Riveter Automobile Brakes 07/19/21
--- OUTSIDE RECORDS SUMMARY | 2024-11-04 08:09 | XMS_ITS | Patient Health Record ---
Author Organization [facility] Address [address] [place] [address] Care Team Providers Care Incident Manager Name Role Phone Kim LOPEZ, Jose Cruz [...] Problem Status W/U Status Risk Notes Problem [id number] ad terminal makeup operator (curre nt) use of anticoagulants (Z79.01) Active confirmed Problem 35510590 Iron deficiency anemia (D50.9) Active confirmed Problem 86525095 Colon polyp (K63.5) Active confirmed Problem 86012549 Erosive esophagi tis (K22.10) Active confirmed Plan Of Treatment Future Test Test Name Order Date UPPER GI ENDOSCOPY 03/01/2016 COLONOSCOPY 03/01/2016 Insurance Providers Payer Name Payer Address Payer Phone Subscriber Number Group Number Insured Name Patient Relationship to Insured Coverage Start Date Coverage End Date [facility] [address] [facility] [phone] [id number] CHRISTAL ROGERS Self - patient is the insured Medical (General) History Medical History History ICD Code colonoscopy 07-02-10 hemorrhoids history of intermittent rectal itching a nd discomfort breast cancer on the left, s tatus post mastectomy and lymph node resetion in 1992 hypertension melanoma shingles with post-hepatic neuralgia Denies MO,DM,CVA,Lung disease,renal dise ase Atrial fibrillation blood clots Surgical History Surgery Date(Month/Year) mastectomy and lymph node resection in -left breast removal of melanoma from the back hysterectomy for fibroid disease lumpectomy, right breast 2013
== END 2024-11-03 08:07 | disposition home or self-care (01) ==
LOC: HO.HOSX 08:06
PROVIDERS: Visit Provider Physician Assistant
DX: S82.62XA Displaced fracture of lateral malleolus of left fibula, initial encounter for closed fracture (principal); M25.572 Pain in left ankle and joints of left foot; W19.XXXA Unspecified fall, initial encounter; Y92.009 Unspecified place in unspecified non-institutional (private) residence as the place of occurrence of the external cause; Y93.89 Activity, other specified; Y99.8 Other external cause status
CPT/HCPCS: 29405; 73610; 99212

== ENCOUNTER 2024-11-03 08:36 | Outpatient (AMB) | payer MEDICARE, SELFPAY ==
--- OUTSIDE RECORDS SUMMARY | 2024-11-03 08:44 | XMS_ITS | Clinical Summary ---
Author Organization [facility] Address [address] [place] [address] Phone Care Team Providers Care Card Punching Machine Operator Name Role Phone Ruben Dick Primary Care Provider [phone] Allergies No known active allergies Medications amiodarone [...] to complete this topic Insurance [facility] Care Teams Card Punching Machine Operator Relationship Specialty Start Date End Date Ruben Dick PA [address], [address] [place] [address] PCP - General Physician Associate Media Director 07/19/21
--- OUTSIDE RECORDS SUMMARY | 2024-11-03 08:45 | XMS_ITS | Patient Health Record ---
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) use of anticoagulants (Z79.01) Active confirmed Problem 12685970 Iron deficiency anemia (D50.9) Active confirmed Problem 29562769 Colon polyp (K63.5) Active confirmed Problem 91423300 Erosive esophagi tis (K22.10) Active confirmed Plan Of Treatment Future Test Test Name Order Date UPPER GI ENDOSCOPY 03/01/2016 COLONOSCOPY 03/01/2016 Insurance Providers Payer Name Payer Address Payer Phone Subscriber Number Group Number Insured Name Patient Relationship to Insured Coverage Start Date Coverage End Date [facility] [address] [facility] [phone] [id number] CHRISTAL ROGERS Self - patient is the insured Medical (General) History Medical History History ICD Code colonoscopy 07-02-10 hemorrhoids history of intermittent rectal itching a nd discomfort breast cancer on the left, s tatus post mastectomy and lymph node resetion in 1992 hypertension melanoma shingles with post-hepatic neuralgia Denies AR,DM,CVA,Lung disease,renal dise ase Atrial fibrillation blood clots Surgical History Surgery Date(Month/Year) mastectomy and lymph node resection in -left breast removal of melanoma from the back hysterectomy for fibroid disease lumpectomy, right breast 2013
--- NOTE | 2024-11-03 08:52 | A.OFFVIS_ITS ---
Intake Visit Reasons: FC-LT lateral malleolus fx DOI: 10/29/24 Intake Note: Rosy is an 89 year old female who presents today in a stretcher for an ER follow up of left lateral malleolus fracture, DOI 10/28/24. Patient was seen at [facility] on 10/29/24, per ER note patient was found on the floor at home by a family memb er. She had became dizzy and fell, she was on the floor for 24 hours before she was found. Patient was placed in a splint and referred to orthopedics. Patient reports tenderness in her ankle upon removing splint dressing. Allergies No Known Allergies (No Known Allergies*) Allergy (Verified 11/03/24 09:04) Medication List - Last Reviewed 11/03/24 by ALEJANDRA Moscoso acetaminophen 1,000 mg PO Q6H PRN amiodarone 100 mg PO DAILY amlodipine 5 mg PO DAILY atorvastatin 20 mg PO DAILY calcium carbonate (Calcium 600) 600 mg PO DAILY metoprolol succinate ER 25 mg (1/2 x 50 mg) PO DAILY omeprazole 20 mg PO DAILY PRN omeprazole 20 mg PO DAILY PRN raloxifene 60 mg PO DAILY walker (Ultra-Light Rollator mis) As directed warfarin 2 mg PO SUMOTUWEFRSA@1800 warfarin 4 mg PO TH@1800 HPI HPI FC-LT lateral malleolus fx DOI: 10/29/24: Details: 89-year-old female presents today for a follow-up left ankle fracture. She is currently in a short-term rehab. She has no concerns today. [facility] Medical History PAF (paroxysmal atrial fibrillation) Essential hypertension Pulmonary hypertension Non-rheumatic tricuspid stenosis with insufficiency Abnormal myocardial perfusion study Chronic heart failure with preserved ejection fraction (HFpEF) Hiatal hernia Diverticulitis Gastro-esophageal reflux disease without esophagitis High cholesterol Hypertension Atrial fibrillation Surgical History S/P total abdominal hysterectomy History of cardioversion H/O mastectomy Family History Father Heart disease Mother Colon cancer Social History Household Members: None Housing: Apartment Are you a primary care information associate to a significant other at home: No Do you presently have visiting nurse or other home services: No Alcohol intake: never Patient Tobacco Use Status: Never used Tobacco e-Cigarette/Vaping Use: Never Used Second Hand Smoke Exposure: No Advance Directives Date on File: 01/16/20 service: No Current occupational status: retired Cognitive needs: No Hearing needs: No Vision needs: No Review of Systems Const All systems reviewed & are unremarkable except as noted in HPI and below Physical Exam Const General: cooperative and no acute distress Orientation/consciousness: patient oriented x3 Resp Effort & Inspection: normal respiratory effort and able to speak in complete sentences Cardio Peripheral pulses: Peripheral pulses 2+ throughout Neuro General: patient oriented x3 Extrem Other: Left ankle is normal to inspection she does have significant ecchymosis. No swelling. Scant tenderness over the lateral malleolus. Pulses are present and sensation intact. Office Procedures Casting/Splints [id number] Leg Cast Application Procedure code (CPT) selection complete Results Reviewed Results Reviewed: X-rays of the left ankle obtained in the office today and reviewed by me show a distal fibular fracture with slight widening of the mortise Assessment & Plan Assessment & Plan (1) Closed fracture of left lateral malleolus: Code(s): S82.62XA - Displaced fracture of lateral malleolus of left fibula, initial encounter for closed fracture Category: Medical Plan I explained to the patient and her brother the treatment plan which includes non surgical intervention given her multiple comorbidities. I explained the fracture appears stable from previous imaging and if we cast this and remain nonweightbearing it will heal. She will have increased risk of arthritis however with physical therapy she should recover well. She was placed in a short-leg cast today. Nonweightbearing left lower extremity. She should work on ADLs an upper body conditioning. She will see me back in 5-6 weeks with cast off and x-rays, sooner if needed. Orders: Orders XR ankle LT min 3V Today M25.572 - Pain in left ankle and joints of left foot Coding Level of Care Code Global (05147) Diagnoses Closed fracture of left lateral malleolus S82.62XA CPT Codes Casting - CPT: [id number]-[id number] Leg Cast Application ([id number])
== END 2024-11-03 09:57 | disposition home or self-care (01) ==
LOC: HO.HOS 08:36
PROVIDERS: PCP Physician Assistant; Visit Provider Physician Assistant
DX: S82.62XA Displaced fracture of lateral malleolus of left fibula, initial encounter for closed fracture (principal)
CPT/HCPCS: 29405; 99213

== ENCOUNTER → 2024-11-03 08:38 | Outpatient (BNV) | payer MEDICARE, SELFPAY | PROVIDERS: Visit Provider Radiology Diagnostic Radiology | DX: M25.572 Pain in left ankle and joints of left foot (principal) | CPT/HCPCS: 73610 ==

== ENCOUNTER 2024-12-12 10:01 | Outpatient (REF) | payer MEDICARE, SELFPAY ==
--- NOTE | ~2024-12-12 | XR_ITS ---
EXAMINATION: XR ANKLE, LEFT CLINICAL INFORMATION: M25.572 - Pain in left ankle and joints of left foot COMPARISON: 11/03/2024, 10/28/2024. TECHNIQUE: AP, lateral, and mortise views of the left ankle. FINDINGS: Mild disuse osteopenia is present. Redemonstration of an oblique fracture of the distal fibular metadiaphysis extending to the level of the syndesmosis. Fracture line is indistinct, with sclerosis of the margins, and there is subtle periosteal new bone formation seen abutting the superior fracture margin. Findings are consistent with healing. No additional fractures or focal bony abnormalities. The ankle mortise is intact. The talar dome is preserved. The lateral view is suboptimal. There is a small plantar calcaneal spur. Soft tissues demonstrate diffuse vascular calcifications. XR/XR ankle LT min 3V IMPRESSION: 1. Healing fibular fracture in stable anatomical alignment Electronically signed by: Cornelius Valle MD 12/12/2024 01:48 PM EDT
--- OUTSIDE RECORDS SUMMARY | 2024-12-16 11:22 | XMS_ITS | Encounter Summary ---
Author Organization [employer] Address [address] [place] [address] Care Team Providers Care Architecture Professor Name Role Phone Eusebio Sprague MD Primary Care Provider [phone] Encounter Details Date Type Department Care Team (Late st Contact Info) Description 12/05/2024 Lab Requisition [facility] - Main Lab [address] [place] [address] Eusebio Sprague MD [address] [place], [place] [id number] Unspecified atrial fibrillation (CMS/HCC V24, CMS/HCC V28); [...] mmol/L LAB CHEMISTRY METHOD 12/08/2024 1:54 PM [facility] Potassium 5.1 3.5 - 5.5 mmol/L LAB CHEMISTRY METHOD 12/08/2024 1:54 PM [facility] Chloride 111(H) 96 - 110 mmol/L LAB CHEMISTRY METHOD 12/08/2024 1:54 PM [facility] CO2 23 21 - 32 mmol/L LAB CHEMISTRY METHOD 12/08/2024 1:54 PM [facility] Anion Gap 7 3 - 11 LAB CHEMISTRY METHOD 12/08/2024 1:54 PM [facility] Glucose 68(L) 70 - 100 mg/dL LAB CHEMISTRY METHOD 12/08/2024 1:54 PM [facility] BUN 34(H) 5 - 25 mg/dL LAB CHEMISTRY METHOD 12/08/2024 1:54 PM [facility] Creatinine 1.55(H) 0.50 - 1.10 mg/dL LAB CHEMISTRY METHOD 12/08/2024 1:54 PM [facility] eGFR 32(L) >=60 mL/min/1. 73m2 LAB CHEMISTRY METHOD 12/08/2024 1:54 PM [facility] Comment:Calculation based on the Chronic Kidney Disease Epidemiology Collaboration (CKD-EPI) equation refit without adjustment for race. BUN/Creatinine Ratio 21.9 LAB CHEMISTRY METHOD 12/08/2024 1:54 PM [facility] Calcium 8.8 8.5 - 10.5 mg/dL LAB CHEMISTRY METHOD 12/08/2024 1:54 PM [facility] Blood Venous blood specimen / Unknown Venipuncture / Unknown 12/08/2024 6:23 AM EDT 12/08/2024 10:07 AM EDT us Eusebio Sprague MD LAB BLOOD ORDERABLES Final Resul t [facility] [address] [place] [address], * (ABNORMAL) Complete blood count (12/08/2024 6:23 AM EDT) WBC 5.6 4.8 - 10.8 K/mcL LAB HEMETOLOGY METHOD 12/08/2024 11:03 AM EDT [facility] RBC 3.80 3.80 - 4.80 M/mcL LAB HEMETOLOGY METHOD 12/08/2024 [facility] Hemoglobin 11.8 11.5 - 16.0 g/dL LAB HEMETOLOGY METHOD 12/08/2024 11:03 AM [facility] Hematocrit 37.4 35.0 - 47.0 % LAB HEMETOLOGY METHOD 12/08/2024 11:03 AM [facility] MCV 99.2(H) 79.0 - 98.0 FL LAB HEMETOLOGY METHOD 12/08/2024 11:03 AM [facility] MCH 31.3 27.0 - 32.0 pcg LAB HEMETOLOGY METHOD 12/08/2024 11:03 AM [facility] MCHC 31.6(L) 32.0 - 37.0 g/dL LAB HEMETOLOGY METHOD 12/08/2024 11:03 AM [facility] RDW 14.4 11.0 - 15.0 % LAB HEMETOLOGY METHOD 12/08/2024 11:03 AM [facility] Platelets 176 130 - 400 K/mcL LAB HEMETOLOGY METHOD 12/08/2024 11:03 AM [facility] MPV 10.0 7.0 - 11.0 FL LAB HEMETOLOGY METHOD 12/08/2024 11:03 AM EDT [facility] NRBC 0.0 <1.0 % LAB HEMETOLOGY METHOD 12/08/2024 11:03 AM EDT [facility] NRBC Absolute 0.00 <0.10 K/mcL LAB HEMETOLOGY METHOD 12/08/2024 11:03 AM EDT [facility] Blood Venous blood specimen / Unknown Venipuncture / Unknown 12/08/2024 6:23 AM EDT 12/08/2024 10:07 AM EDT Eusebio Sprague MD LAB BLOOD ORDERABLES Final Resul t Performing Organization Address [facility] Co de Phone Number [facility] [address] [place] [address], [place] [phone] * (ABNORMAL) Prothrombin time with INR (12/08/2024 6:23 AM EDT) Protime 35.3(H) 10.6 - 13.9 sec LAB COAGULATION METHOD 12/08/2024 10:47 AM EDT [facility] INR 2.9 LAB COAGULATION METHOD 12/08/2024 10:47 AM EDT [facility] Blood Venous blood specimen / Unknown Venipuncture / Unknown 12/08/2024 6:23 AM EDT 12/08/2024 10:07 AM EDT Eusebio Sprague MD LAB BLOOD ORDERABLES Final Resul t Performing Organization Address City/[facility]/ZIP Co de Phone Number [facility] [address] [place] [address], [place] [phone] documented in this encounter Visit Diagnoses Diagnosis Unspecified atrial fibrillation (CMS/HCC V24, CMS/HCC V28) Essential (primary) hypertension Unspecified essential hypertension documented in this encounter Care Teams Architecture Professor Relationship Specialty Start Date End Date Eusebio Sprague MD [address] [place] [address] [address] [place] [address] PCP - General Geriatric Medicine 11/05/24 documented as of this encounter
--- OUTSIDE RECORDS SUMMARY | 2024-12-16 11:22 | XMS_ITS | Encounter Summary ---
Author Organization [employer] Address [address] [place] [address] Care Team Providers Care Jig Fitter Name Role Phone Eusebio Sprague MD Primary Care Provider [phone] Encounter Details Date Type Department Care Team (Late st Contact Info) Description 11/24/[address] [facility] - Main Lab [address] [place] [address] Reena Salmon PA [address] [facility] [place] [place] [address] Heart failure, unspecified (CMS/HCC V24, CMS/HCC V28); [...] sec LAB COAGULATION METHOD 11/24/2024 10:32 AM [facility] INR 2.0 LAB COAGULATION METHOD 11/24/2024 10:32 AM [facility] Blood Venous blood specimen / Unknown Venipuncture / Unknown 11/24/2024 6:19 AM EDT 11/24/2024 10:10 AM EDT us Reena FOSTER LAB BLOOD ORDERABLES Final Resu lt Performing Organization Address City/[facility]/ZIP Co de Phone Number [facility] [address] [place] [address], [place] [phone] * Magnesium (11/24/2024 6:19 AM EDT) Pathologist [facility] Magnesium 2.4 1.9 - 2.6 mg/dL LAB CHEMISTRY METHOD 11/24/2024 11:02 AM EDT [facility] Blood Venous blood specimen / Unknown Venipuncture / Unknown 11/24/2024 6:19 AM EDT 11/24/2024 10:10 AM EDT us Reena FOSTER LAB BLOOD ORDERABLES Final Resu lt Performing Organization Address [facility]/ZIP Co de Phone Number [facility] [address] [place] [address], [place] [phone] * (ABNORMAL) Vitamin D 25 hydroxy (11/24/2024 6:19 AM EDT) [facility] Vit D, 25-Hydroxy 29.0(L) 30.0 - 80.0 ng/mL LAB CHEMISTRY METHOD 11/24/2024 11:59 AM EDT [facility] Blood Venous blood specimen / Unknown Venipuncture / Unknown 11/24/2024 6:19 AM EDT 11/24/2024 10:10 AM EDT us Reena FOSTER LAB BLOOD ORDERABLES Final Resu lt Performing Organization Address City/[facility]/ZIP Co de Phone Number [facility] [address] [place] [address], [place] [phone] * (ABNORMAL) Thyroid stimulating hormone (11/24/2024 6:19 AM EDT) [facility] TSH 4.43(H) 0.40 - 4.00 mcIU/mL LAB CHEMISTRY METHOD 11/24/2024 11:59 AM EDT [facility] Blood Venous blood specimen / Unknown Venipuncture / Unknown 11/24/2024 6:19 AM EDT 11/24/2024 10:10 AM EDT us Reena FOSTER LAB BLOOD ORDERABLES Final Resu lt Performing Organization Address [facility]/ZIP Co de Phone Number [facility] [address] [place] [address], [place] [phone] * Vitamin B12 and folate (11/24/2024 6:19 AM EDT) [facility] Vitamin B-12 470 250 - 900 pcg/mL LAB CHEMISTRY METHOD 11/24/2024 11:28 AM EDT [facility] Folate 6.3 2.8 - 17.0 ng/ml LAB CHEMISTRY METHOD 11/24/2024 11:28 AM EDT [facility] Blood Venous blood specimen / Unknown Venipuncture / Unknown 11/24/2024 6:19 AM EDT 11/24/2024 10:10 AM EDT us Reena FOSTER LAB BLOOD ORDERABLES Final Resu lt Performing Organization Address City/[facility]/ZIP Co de Phone Number [facility] [address] [place] [address], [place] [phone] * (ABNORMAL) Comprehensive metabolic panel (11/24/2024 6:19 AM EDT) [facility] Sodium 139 133 - 145 mmol/L LAB CHEMISTRY METHOD 11/24/2024 11:28 AM EDT [facility] Potassium 5.1 3.5 - 5.5 mmol/L LAB CHEMISTRY METHOD 11/24/2024 11:28 AM EDT [facility] Chloride 108 96 - 110 mmol/L LAB CHEMISTRY METHOD 11/24/2024 11:28 AM [facility] CO2 25 21 - 32 mmol/L LAB CHEMISTRY METHOD 11/24/2024 11:28 AM [facility] Anion Gap 6 3 - 11 LAB CHEMISTRY METHOD 11/24/2024 11:28 AM [facility] Glucose 66(L) 70 - 100 mg/dL LAB CHEMISTRY METHOD 11/24/2024 11:28 AM [facility] BUN 45(H) 5 - 25 mg/dL LAB CHEMISTRY METHOD 11/24/2024 11:28 AM [facility] Creatinine 1.48(H) 0.50 - 1.10 mg/dL LAB CHEMISTRY METHOD 11/24/2024 11:28 AM [facility] eGFR 34(L) >=60 mL/min/1. 73m2 LAB CHEMISTRY METHOD 11/24/2024 11:28 AM [facility] Comment:Calculation based on the Chronic Kidney Disease Epidemiology Collaboration (CKD-EPI) equation refit without adjustment for race. BUN/Creatinine Ratio 30.4 LAB CHEMISTRY METHOD 11/24/2024 11:28 AM [facility] Calcium 8.1(L) 8.5 - 10.5 mg/dL LAB CHEMISTRY METHOD 11/24/2024 11:28 AM [facility] AST (SGOT) 51(H) 10 - 42 unit/L LAB CHEMISTRY METHOD 11/24/2024 11:28 AM [facility] ALT (SGPT) 58 10 - 60 unit/L LAB CHEMISTRY METHOD 11/24/2024 11:28 AM [facility] Alkaline Phosphatase 119 42 - 121 unit/L LAB CHEMISTRY METHOD 11/24/2024 11:28 AM [facility] Total Protein 4.8(L) 6.0 - 8.0 g/dL LAB CHEMISTRY METHOD 11/24/2024 11:28 AM EDT [facility] Albumin 2.3(L) 3.2 - 5.0 g/dL LAB CHEMISTRY METHOD 11/24/2024 11:28 AM EDT [facility] Total Bilirubin 0.3 0.0 - 1.4 mg/dL LAB CHEMISTRY METHOD 11/24/2024 11:28 AM T [facility] Blood Venous blood specimen / Unknown Venipuncture / Unknown 11/24/2024 6:19 AM EDT 11/24/2024 10:10 AM EDT us Reena FOSTER LAB BLOOD ORDERABLES Final Resu lt [facility] [address] [place] [address], [place] [phone] * (ABNORMAL) Complete blood count (11/24/2024 6:19 AM EDT) WBC 6.4 4.8 - 10.8 K/mcL LAB HEMETOLOGY METHOD 11/24/2024 10:32 AM [facility] RBC 3.30(L) 3.80 - 4.80 M/mcL LAB HEMETOLOGY METHOD 11/24/2024 10:32 AM [facility] Hemoglobin 10.6(L) 11.5 - 16.0 g/dL LAB HEMETOLOGY METHOD 11/24/2024 10:32 AM T [facility] Hematocrit 33.6(L) 35.0 - 47.0 % LAB HEMETOLOGY METHOD 11/24/2024 10:32 AM [facility] MCV 100.9(H) 79.0 - 98.0 FL LAB HEMETOLOGY METHOD 11/24/2024 10:32 AM [facility] MCH 31.8 27.0 - 32.0 pcg LAB HEMETOLOGY METHOD 11/24/2024 10:32 AM EDT [facility] MCHC 31.5(L) 32.0 - 37.0 g/dL LAB HEMETOLOGY METHOD 11/24/2024 10:32 AM EDT [facility] RDW 13.9 11.0 - 15.0 % LAB HEMETOLOGY METHOD 11/24/2024 10:32 AM EDT [facility] Platelets 223 130 - 400 K/mcL LAB HEMETOLOGY METHOD 11/24/2024 10:32 AM EDT [facility] MPV 10.0 7.0 - 11.0 FL LAB HEMETOLOGY METHOD 11/24/2024 10:32 AM EDT [facility] NRBC 0.0 <1.0 % LAB HEMETOLOGY METHOD 11/24/2024 10:32 AM EDT [facility] NRBC Absolute 0.00 <0.10 K/mcL LAB HEMETOLOGY METHOD 11/24/2024 10:32 AM EDT [facility] Blood Venous blood specimen / Unknown Venipuncture / Unknown 11/24/2024 6:19 AM EDT 11/24/2024 10:10 AM EDT us Reena FOSTER LAB BLOOD ORDERABLES Final Resu lt [facility] [address] [place] [address], documented in this encounter Visit Diagnoses Diagnosis Heart failure, unspecified (CMS/HCC V24, CMS/HCC V28) Heart failure, unspecified Vitamin D deficiency, unspecified Hypothyroidism, unspecified Unspecified atrial fibrillation (CMS/HCC V24, CMS/HCC V28) documented in this encounter Care Teams Jig Fitter Relationship Specialty Start Date End Date Eusebio Sprague MD [address] [place], [place] [id number] [place] [address] PCP - General Geriatric Medicine 11/05/24 documented as of this encounter
--- OUTSIDE RECORDS SUMMARY | 2024-12-16 11:22 | XMS_ITS | Clinical Summary ---
Author Organization [facility] [address] [place] [address] Phone Care Team Providers Care Automatic Bow Maker Machine Tender Name Role Phone Ruben Dick Primary Care Provider [phone] Allergies No known active allergies Medications amiodarone [...] to complete this topic Insurance Care Teams Automatic Bow Maker Machine Tender Relationship Specialty Start Date End Date Ruben Dick PA [address] [place] [address], [address] [place] [address] PCP - General Physician Bank Clerk 07/19/21
--- OUTSIDE RECORDS SUMMARY | 2024-12-16 11:22 | XMS_ITS | Encounter Summary ---
Author Organization [facility] Address [address] [place] [address] Care Team Providers Care Hvac Field Service Technician Name Role Phone Eusebio Sprague MD Primary Care Provider [phone] Encounter Details Date Type Department Care Team (Late st Contact Info) Description 11/15/2024 Lab Requisition [facility] - Main Lab [address] [facility] [place] [address] Eusebio Sprague MD [address] [place], [place] [id number] Unspecified atrial fibrillation (CMS/HCC V24, CMS/HCC V28); [...] unspecified documented in this encounter Care Teams Hvac Field Service Technician Relationship Specialty Start Date End Date Eusebio Sprague MD [address] [place], [place] [phone] PCP - General Geriatric Medicine 11/05/24 documented as of this encounter
--- OUTSIDE RECORDS SUMMARY | 2024-12-16 11:22 | XMS_ITS | Encounter Summary ---
Author Organization [employer] Address [address] [place] [address] Care Team Providers Care Registered Dietitian Name Role Phone Eusebio Sprague MD Primary Care Provider [phone] Encounter Details Date Type Department Care Team (Late st Contact Info) Description 12/11/2024 Lab Requisition [facility] - Main Lab [address] [facility] [place] [address] Eusebio Sprague MD [address] [place], [place] [id number] Frequency of micturition Social History Tobacco Use [...] reflex microscopic (12/10/2024 4:30 AM EDT) Specific [place] Urine 1.014 1.003 - 1.030 LAB URINALYSIS - AUTOMATED METHOD 12/11/2024 10:24 AM EDT [facility] pH, Urine 5.5 5.0 - 8.0 pH LAB URINALYSIS - AUTOMATED METHOD 12/11/2024 10:24 AM [facility] Leukocytes, Urine Large(A) Negative LAB URINALYSIS - AUTOMATED METHOD 12/11/2024 10:24 AM [facility] Nitrite, Urine Negative Negative LAB URINALYSIS - AUTOMATED METHOD 12/11/2024 10:24 AM [facility] Protein, Urine Trace <=Trace mg/dL LAB URINALYSIS - AUTOMATED METHOD 12/11/2024 10:24 AM [facility] Glucose, Urine Negative Negative mg/dL LAB URINALYSIS - AUTOMATED METHOD 12/11/2024 10:24 AM [facility] Ketones, Urine Negative Negative mg/dL LAB URINALYSIS - AUTOMATED METHOD 12/11/2024 10:24 AM [facility] Urobilinogen, Urine 0.2 0.2 - 1.0 mg/dL LAB URINALYSIS - AUTOMATED METHOD 12/11/2024 10:24 AM [facility] Bilirubin, Urine Negative Negative LAB URINALYSIS - AUTOMATED METHOD 12/11/2024 10:24 AM [facility] Blood, Urine Small(A) Negative LAB URINALYSIS - AUTOMATED METHOD 12/11/2024 10:24 AM [facility] RBC, Urine 7.1(H) 0 - 4 /HPF LAB URINALYSIS - AUTOMATED METHOD 12/11/2024 10:24 AM [facility] WBC, Urine 990.7(H) 0 - 4 /HPF LAB URINALYSIS - AUTOMATED METHOD 12/11/2024 10:24 AM [facility] Squamous Epithelial, Urine 41 0 - 60 /LPF LAB URINALYSIS - AUTOMATED METHOD 12/11/2024 10:24 AM [facility] Bacteria, Urine Many(A) Negative /HPF LAB URINALYSIS - AUTOMATED METHOD 12/11/2024 10:24 AM EDT [facility] Hyaline Casts, Urine 2.4 0 - 3 /LPF LAB URINALYSIS - AUTOMATED METHOD 12/11/2024 10:24 AM EDT [facility] Urine Urine specimen obtained by clean catch procedure / Unknown 12/10/2024 4:30 AM EDT 12/11/2024 9:17 AM EDT us Eusebio Sprague MD LAB URINE ORDERABLES Final Resul t [facility] [address] [place] [address], * (ABNORMAL) Culture urine (12/10/2024 4:30 AM EDT) Culture, Urine >=100,000 CFU/mL Enterococcus faecium(A) RAMA 12/14/2024 8:27 AM EDT [facility] Comment: Edited result: Previously reported as Gram Positive Cocci on 12/12/2024 at 1105 EDT. Culture, Urine 10,000-49,000 CFU/mL Enterococcus faecalis(A) RAMA 12/14/2024 8:27 AM EDT [facility] Comment: The organism value for this result has been updated. These results have been appended to the previously preliminary verified report. Urine Urine specimen obtained by clean catch procedure / Unknown 12/10/2024 4:30 AM EDT 12/11/2024 9:17 AM EDT Narrative [facility] - 12/14/2024 8:27 AM EDT Additional colony types present in insignificant amounts. Organism Antibiotic Method Susceptibility Enterococcus faecium Benzylpenicillin RAMA 4 ug/ml: Susceptible Enterococcus faecium Ampicillin RAMA <=2 ug/ml: Susceptible Enterococcus faecium Ciprofloxacin RAMA 1 ug/ml: Susceptible Enterococcus faecium Levofloxacin RAMA 2 ug/ml: Susceptible Enterococcus faecium Linezolid RAMA 2 ug/ml: Susceptible Enterococcus faecium Vancomycin RAMA <=0.5 ug/ml: Susceptible Enterococcus faecium Tetracycline RAMA <=1 ug/ml: Susceptible Enterococcus faecium Nitrofurantoin RAMA 64 ug/ml: Intermediate Enterococcus faecalis Benzylpenicillin RAMA 2 ug/ml: Susceptible Enterococcus faecalis Ampicillin RAMA <=2 ug/ml: Susceptible Enterococcus faecalis Ciprofloxacin RAMA <=0.5 ug/ml: Susceptible Enterococcus faecalis Levofloxacin RAMA 0.5 ug/ml: Susceptible Enterococcus faecalis Linezolid RAMA 1 ug/ml: Susceptible Enterococcus faecalis Vancomycin RAMA 2 ug/ml: Susceptible Enterococcus faecalis Tetracycline RAMA >=16 ug/ml: Resistant Enterococcus faecalis Nitrofurantoin RAMA <=16 ug/ml: Susceptible Eusebio Sprague MD LAB MICROBIOLOGY - GENERAL ORDER GONZALEZ Final Result [facility] ([facility]) [facility] [address] [place] [address], documented in this encounter Visit Diagnoses Diagnosis Frequency of micturition Urinary frequency documented in this encounter Care Teams Registered Dietitian Relationship Specialty Start Date End Date Eusebio Sprague MD [address] [place] [address] [address] [place] [address] PCP - General Geriatric Medicine 11/05/24 documented as of this encounter
--- OUTSIDE RECORDS SUMMARY | 2024-12-16 11:22 | XMS_ITS | Encounter Summary ---
Author Organization [facility] [employer] Address [address] [place] [address] Care Team Providers Care Writer Editor Name Role Phone Eusebio Sprague MD Primary Care Provider [phone] Encounter Details Date Type Department Care Team (Late st Contact Info) Description 11/26/2024 Lab Requisition [facility] - Main Lab [address] [facility] [place] [address] Eusebio Sprague MD [address] [place], [place] [phone] Unspecified atrial fibrillation (CMS/HCC V24, CMS/HCC V28) [...] sec LAB COAGULATION METHOD 11/27/2024 8:56 AM [facility] INR 2.0 LAB COAGULATION METHOD 11/27/2024 8:56 AM [facility] Blood Venous blood specimen / Unknown Venipuncture / Unknown 11/27/2024 6:40 AM EDT 11/27/2024 8:33 AM EDT Eusebio Sprague MD LAB BLOOD ORDERABLES Final Resul t [facility] ([facility]) [facility] [address] [place] [address], documented in this encounter Visit Diagnoses Diagnosis Unspecified atrial fibrillation (CMS/HCC V24, CMS/HCC V28) documented in this encounter Care Teams Writer Editor Relationship Specialty Start Date End Date Eusebio Sprague MD [address] [place] [address] [address] [place] [address] PCP - General Geriatric Medicine 11/05/24 documented as of this encounter
--- OUTSIDE RECORDS SUMMARY | 2024-12-16 11:23 | XMS_ITS | Encounter Summary ---
Author Organization [employer] Address [address] [place] [address] Care Team Providers Care Take Out Waiter Name Role Phone Eusebio Sprague MD Primary Care Provider [phone] Encounter Details Date Type Department Care Team (Late st Contact Info) Description 12/12/[address] [facility] - Main Lab [address] [facility] [place] [address] Eusebio Sprague MD [address] [place], [place] [phone] Unspecified atrial fibrillation (CMS/HCC V24, CMS/HCC V28); [...] Name Type Priority Associated Diagnoses Date /Time Prothrombin time with INR Lab Routine Unspecified atrial fibrillation (CMS/HCC V24, CMS/HCC V28) Essential (primary) hypertension 12/16/2024 5:01 AM EDT Complete blood count Lab Routine Unspecified atrial fibrillation (CMS/HCC V24, CMS/HCC V28) Essential (primary) hypertension 12/16/2024 5:01 AM EDT Basic metabolic panel Lab Routine Unspecified atrial fibrillation (CMS/HCC V24, CMS/HCC V28) Essential (primary) hypertension 12/16/2024 5:01 AM EDT documented as of this encounter Visit Diagnoses Diagnosis Unspecified atrial fibrillation (CMS/HCC V24, CMS/HCC V28) Essential (primary) hypertension Unspecified essential hypertension documented in this encounter Care Teams Take Out Waiter Relationship Specialty Start Date End Date Eusebio Sprague MD [address] [place] [address] [address] [place] [address] PCP - General Geriatric Medicine 11/05/24 documented as of this encounter
--- OUTSIDE RECORDS SUMMARY | 2024-12-16 11:23 | XMS_ITS | Encounter Summary ---
Author Organization [employer] Address [address] [place] [address] Care Team Providers Care Professional Healthcare Representative Name Role Phone Eusebio Sprague MD Primary Care Provider [phone] Encounter Details Date Type Department Care Team (Late st Contact Info) Description 11/05/2024 Lab Requisition [facility] - Main Lab [address] [place] [address] Eusebio Sprague MD [address] [place], [place] [id number] Unspecified atrial fibrillation (CMS/HCC V24, CMS/HCC V28); [...] Results * Magnesium (11/05/2024 6:51 AM EDT) [facility] Magnesium 2.5 1.9 - 2.6 mg/dL LAB CHEMISTRY METHOD 11/05/2024 12:06 PM EDT [facility] Blood Venous blood specimen / Unknown Venipuncture / Unknown 11/05/2024 6:51 AM EDT 11/05/2024 10:39 AM EDT us Eusebio Sprague MD LAB BLOOD ORDERABLES Final Resul t Performing Organization Address City/[facility]/ZIP Co de Phone Number [facility] [address] [place] [address], [place] [phone] * Thyroid stimulating hormone (11/05/2024 6:51 AM EDT) [facility] TSH 2.71 0.40 - 4.00 mcIU/mL LAB CHEMISTRY METHOD 11/05/2024 12:58 PM EDT [facility] Blood Venous blood specimen / Unknown Venipuncture / Unknown 11/05/2024 6:51 AM EDT 11/05/2024 10:39 AM EDT us Eusebio Sprague MD LAB BLOOD ORDERABLES Final Resul t [facility] [address] [place] [address], [place] [phone] * Vitamin D 25 hydroxy (11/05/2024 6:51 AM EDT) [facility] Vit D, 25-Hydroxy 38.0 30.0 - 80.0 ng/mL LAB CHEMISTRY METHOD 11/05/2024 12:58 PM EDT [facility] Blood Venous blood specimen / Unknown Venipuncture / Unknown 11/05/2024 6:51 AM EDT 11/05/2024 10:39 AM EDT us Eusebio Sprague MD LAB BLOOD ORDERABLES Final Resul t Performing Organization Address [facility] Co de Phone Number [facility] [address] [place] [address], [place] [phone] * Vitamin B12 (11/05/2024 6:51 AM EDT) [facility] Vitamin B-12 387 250 - 900 pcg/mL LAB CHEMISTRY METHOD 11/05/2024 12:33 PM EDT [facility] Blood Venous blood specimen / Unknown Venipuncture / Unknown 11/05/2024 6:51 AM EDT 11/05/2024 10:39 AM EDT us Eusebio Sprague MD LAB BLOOD ORDERABLES Final Resul t Performing Organization Address [facility] de Phone Number [facility] [address] [place] [address], [place] [phone] * Folate (11/05/2024 6:51 AM EDT) [facility] Folate 8.7 2.8 - 17.0 ng/ml LAB CHEMISTRY METHOD 11/05/2024 12:33 PM EDT [facility] Blood Venous blood specimen / Unknown Venipuncture / Unknown 11/05/2024 6:51 AM EDT 11/05/2024 10:39 AM EDT us Eusebio Sprague MD LAB BLOOD ORDERABLES Final Resul t Performing Organization Address [facility] Co de Phone Number [facility] [address] [place] [address], [place] [phone] * (ABNORMAL) Prothrombin time with INR (11/05/2024 6:51 AM EDT) [facility] Protime 17.5(H) 10.6 - 13.9 sec LAB COAGULATION METHOD 11/05/2024 11:22 AM [facility] INR 1.4 LAB COAGULATION METHOD 11/05/2024 11:22 AM [facility] Blood Venous blood specimen / Unknown Venipuncture / Unknown 11/05/2024 6:51 AM EDT 11/05/2024 10:39 AM EDT us Eusebio Sprague MD LAB BLOOD ORDERABLES Final Resul t [facility] [address] [place] [address], [place] [phone] * (ABNORMAL) Comprehensive metabolic panel (11/05/2024 6:51 AM EDT) [facility] Sodium 140 133 - 145 mmol/L LAB CHEMISTRY METHOD 11/05/2024 12:33 PM [facility] Potassium 4.9 3.5 - 5.5 mmol/L LAB CHEMISTRY METHOD 11/05/2024 12:33 PM [facility] Chloride 109 96 - 110 mmol/L LAB CHEMISTRY METHOD 11/05/2024 12:33 PM [facility] CO2 25 21 - 32 mmol/L LAB CHEMISTRY METHOD 11/05/2024 12:33 PM [facility] Anion Gap 6 3 - 11 LAB CHEMISTRY METHOD 11/05/2024 12:33 PM [facility] Glucose 86 70 - 100 mg/dL LAB CHEMISTRY METHOD 11/05/2024 12:33 PM [facility] BUN 61(H) 5 - 25 mg/dL LAB CHEMISTRY METHOD 11/05/2024 12:33 PM [facility] Creatinine 1.64(H) 0.50 - 1.10 mg/dL LAB CHEMISTRY METHOD 11/05/2024 12:33 PM [facility] eGFR 30(L) >=60 mL/min/1. 73m2 LAB CHEMISTRY METHOD 11/05/2024 12:33 PM [facility] Comment:Calculation based on the Chronic Kidney Disease Epidemiology Collaboration (CKD-EPI) equation refit without adjustment for race. BUN/Creatinine Ratio 37.2 LAB CHEMISTRY METHOD 11/05/2024 12:33 PM [facility] Calcium 9.2 8.5 - 10.5 mg/dL LAB CHEMISTRY METHOD 11/05/2024 12:33 PM [facility] AST (SGOT) 43(H) 10 - 42 unit/L LAB CHEMISTRY METHOD 11/05/2024 12:33 PM [facility] ALT (SGPT) 47 10 - 60 unit/L LAB CHEMISTRY METHOD 11/05/2024 12:33 PM [facility] Alkaline Phosphatase 85 42 - 121 unit/L LAB CHEMISTRY METHOD 11/05/2024 12:33 PM [facility] Total Protein 5.6(L) 6.0 - 8.0 g/dL LAB CHEMISTRY METHOD 11/05/2024 12:33 PM [facility] Albumin 3.0(L) 3.2 - 5.0 g/dL LAB CHEMISTRY METHOD 11/05/2024 12:33 PM [facility] Total Bilirubin 0.9 0.0 - 1.4 mg/dL LAB CHEMISTRY METHOD 11/05/2024 12:33 PM [facility] Blood Venous blood specimen / Unknown Venipuncture / Unknown 11/05/2024 6:51 AM EDT 11/05/2024 10:39 AM EDT us Eusebio Sprague MD LAB BLOOD ORDERABLES Final Resul t [facility] [address] [place] [address], * (ABNORMAL) Complete blood count (11/05/2024 6:51 AM EDT) [facility] WBC 5.3 4.8 - 10.8 K/mcL LAB HEMETOLOGY METHOD 11/05/2024 11:32 AM [facility] RBC 3.60(L) 3.80 - 4.80 M/mcL LAB HEMETOLOGY METHOD 11/05/2024 11:32 AM [facility] Hemoglobin 11.7 11.5 - 16.0 g/dL LAB HEMETOLOGY METHOD 11/05/2024 11:32 AM [facility] Hematocrit 35.8 35.0 - 47.0 % LAB HEMETOLOGY METHOD 11/05/2024 11:32 AM [facility] MCV 100.8(H) 79.0 - 98.0 FL LAB HEMETOLOGY METHOD 11/05/2024 11:32 AM [facility] MCH 33.0(H) 27.0 - 32.0 pcg LAB HEMETOLOGY METHOD 11/05/2024 11:32 AM [facility] MCHC 32.7 32.0 - 37.0 g/dL LAB HEMETOLOGY METHOD 11/05/2024 11:32 AM [facility] RDW 14.0 11.0 - 15.0 % LAB HEMETOLOGY METHOD 11/05/2024 11:32 AM [facility] Platelets 159 130 - 400 K/mcL LAB HEMETOLOGY METHOD 11/05/2024 11:32 AM [facility] MPV 10.3 7.0 - 11.0 FL LAB HEMETOLOGY METHOD 11/05/2024 11:32 AM [facility] NRBC 0.0 <1.0 % LAB HEMETOLOGY METHOD 11/05/2024 11:32 AM [facility] NRBC Absolute 0.00 <0.10 K/mcL LAB HEMETOLOGY METHOD 11/05/2024 11:32 AM EDT [facility] Blood Venous blood specimen / Unknown Venipuncture / Unknown 11/05/2024 6:51 AM EDT 11/05/2024 10:39 AM EDT us Eusebio Sprague MD LAB BLOOD ORDERABLES Final Resul t [facility] [address] [place] [address], documented in this encounter Visit Diagnoses Diagnosis Unspecified atrial fibrillation (CMS/HCC V24, CMS/HCC V28) Nontoxic single thyroid nodule Nontoxic uninodular goiter Essential (primary) hypertension Unspecified essential hypertension Heart failure, unspecified (CMS/HCC V24, CMS/HCC V28) Heart failure, unspecified Vitamin D deficiency, unspecified Diverticulum of bladder documented in this encounter Care Teams Professional Healthcare Representative Relationship Specialty Start Date End Date Eusebio Sprague MD [address] [place] [address] [address] [place] [address] PCP - General Geriatric Medicine 11/05/24 documented as of this encounter
--- OUTSIDE RECORDS SUMMARY | 2024-12-16 11:23 | XMS_ITS | Encounter Summary ---
Author Organization [employer] Address [address] [place] [address] Care Team Providers Care Assessment Expert Name Role Phone Eusebio Sprague MD Primary Care Provider [phone] Encounter Details Date Type Department Care Team (Late st Contact Info) Description 12/10/2024 Lab Requisition [facility] - Main Lab [address] [facility] [place] [address] Eusebio Sprague MD [address] [place], [place] [id number] Unspecified atrial fibrillation (CMS/HCC V24, CMS/HCC V28) [...] sec LAB COAGULATION METHOD 12/11/2024 10:10 AM [facility] INR 2.2 LAB COAGULATION METHOD 12/11/2024 10:10 AM [facility] Blood Venous blood specimen / Unknown Venipuncture / Unknown 12/11/2024 6:52 AM EDT 12/11/2024 9:39 AM EDT Eusebio Sprague MD LAB BLOOD ORDERABLES Final Resul t [facility] [address] [place] [address], documented in this encounter Visit Diagnoses Diagnosis Unspecified atrial fibrillation (CMS/HCC V24, CMS/HCC V28) documented in this encounter Care Teams Assessment Expert Relationship Specialty Start Date End Date Eusebio Sprague MD [address] [place] [address] [address] [place] [address] PCP - General Geriatric Medicine 11/05/24 documented as of this encounter
--- OUTSIDE RECORDS SUMMARY | 2024-12-16 11:23 | XMS_ITS | Clinical Summary ---
Author Organization [address] Address [address] [place] [address] Phone Care Team Providers Care Warehouse Order Filler Name Role Phone Eusebio Sprague MD Primary Care Provider [phone] Encounters Date Type Department Care Team Description 12/12/2024 Lab Requisition [facility] Lab [address] [place] [phone] Eusebio Sprague MD Unspecified atrial fibrillation (CMS/HCC V24, CMS/HCC V28); Essential (primary) hypertension 12/11/2024 Lab Requisition [facility] Lab [address] [place] [phone] Eusebio Sprague MD Frequency of micturition 12/10/2024 Lab Requisition [facility] Lab [address] [place] [phone] Eusebio Sprague MD Unspecified atrial fibrillation (CMS/HCC V24, CMS/HCC V28) 12/05/2024 Lab Requisition [facility] Lab [address] [place] [phone] Eusebio Sprague MD Unspecified atrial fibrillation (CMS/HCC V24, CMS/HCC V28); Essential (primary) hypertension 12/03/2024 Lab Requisition [facility] Lab [address] [place] [phone] Eusebio Sprague MD Unspecified atrial fibrillation (CMS/HCC V24, CMS/HCC V28) 11/29/2024 Lab Requisition [facility] Lab [address] [place] [phone] Eusebio Sprague MD Unspecified atrial fibrillation (CMS/HCC V24, CMS/HCC V28); Essential (primary) hypertension 11/26/2024 Lab Requisition [facility] Lab [address] [place] [phone] Eusebio Sprague MD Unspecified atrial fibrillation ([facility]/HCC V24, CMS/HCC V28) 11/24/2024 Lab Requisition [facility] Lab [address] [place] [phone] Reena Salmon PA Heart failure, unspecified ([facility]/HCC V24, CMS/HCC V28); Vitamin D deficiency, unspecified; Hypothyroidism, unspecified; Unspecified atrial fibrillation (CMS/HCC V24, CMS/HCC V28) 11/15/2024 Lab Requisition [facility] Lab [address] [place] [phone] Eusebio Sprague MD Unspecified atrial fibrillation ([facility]/HCC V24, CMS/HCC V28); Heart failure, unspecified ([facility]/HCC V24, CMS/HCC V28) 11/12/2024 Lab Requisition [facility] Lab [address] [place] [phone] Eusebio Sprague MD Unspecified atrial fibrillation ([facility]/HCC V24, CMS/HCC V28) 11/08/2024 Lab Requisition [facility] Lab [address] [place] [phone] Eusebio Sprague MD Unspecified atrial fibrillation (CMS/HCC V24, CMS/HCC V28); Heart failure, unspecified (CMS/HCC V24, CMS/HCC V28) 11/05/2024 Lab Requisition [facility] Lab [address] [place] [phone] Eusebio Sprague MD Unspecified atrial fibrillation (CMS/HCC V24, CMS/HCC V28) 11/05/2024 Lab Requisition [facility] Lab [address] [place] [address] Eusebio Sprague MD Unspecified atrial [...] - PCV) 03/13/2018 03/13/2017 Depression Screening 04/16/2024 Cholesterol Screening (Lipid Panel) 11/06/2024 Falls Risk Assessment 11/06/2024 Medicare Annual Wellness Visit 11/06/2024 Osteoporosis Screening (Bone Density Screening) 11/06/2024 Social Influencers of Health Screening 11/06/2024 COVID-19 Vaccine ( season) 2024 02/01/2024, 03/22/2023, 01/12/2021, Additional history exists Influenza Vaccine (#1) 2024 , 01/24/2023, 02/03/2022, [...] of9 resultswithin the time period is included. [facility] Protime 27.7(H) 10.6 - 13.9 sec LAB COAGULATION METHOD 12/11/2024 10:10 AM EDT [facility] LAB INR 2.2 LAB COAGULATION METHOD 12/11/2024 10:10 AM EDT [facility] LAB Blood Venous blood specimen / Unknown Venipuncture / Unknown 12/11/2024 6:52 AM EDT 12/11/2024 9:39 AM EDT us Eusebio Sprague MD LAB BLOOD ORDERABLES Final Resul t [facility] LAB [address] [place] [address], [place] [phone] * (ABNORMAL) Urinalysis with reflex microscopic (12/10/2024 4:30 AM EDT) [facility] Specific [place] Urine 1.014 1.003 - 1.030 LAB URINALYSIS - AUTOMATED METHOD 12/11/2024 10:24 AM EDT [facility] LAB pH, Urine 5.5 5.0 - 8.0 pH LAB URINALYSIS - AUTOMATED METHOD 12/11/2024 10:24 AM T [facility] LAB Leukocytes, Urine Large(A) Negative LAB URINALYSIS - AUTOMATED METHOD 12/11/2024 10:24 AM EDT [facility] Nitrite, Urine Negative Negative LAB URINALYSIS - AUTOMATED METHOD 12/11/2024 10:24 AM [facility] Protein, Urine Trace <=Trace mg/dL LAB URINALYSIS - AUTOMATED METHOD 12/11/2024 10:24 AM [facility] Glucose, Urine Negative Negative mg/dL LAB URINALYSIS - AUTOMATED METHOD 12/11/2024 10:24 AM [facility] Ketones, Urine Negative Negative mg/dL LAB URINALYSIS - AUTOMATED METHOD 12/11/2024 10:24 AM [facility] Urobilinogen, Urine 0.2 0.2 - 1.0 mg/dL LAB URINALYSIS - AUTOMATED METHOD 12/11/2024 10:24 AM [facility] Bilirubin, Urine Negative Negative LAB URINALYSIS - AUTOMATED METHOD 12/11/2024 10:24 AM [facility] Blood, Urine Small(A) Negative LAB URINALYSIS - AUTOMATED METHOD 12/11/2024 10:24 AM [facility] RBC, Urine 7.1(H) 0 - 4 /HPF LAB URINALYSIS - AUTOMATED METHOD 12/11/2024 10:24 AM [facility] WBC, Urine 990.7(H) 0 - 4 /HPF LAB URINALYSIS - AUTOMATED METHOD 12/11/2024 10:24 AM [facility] Squamous Epithelial, Urine 41 0 - 60 /LPF LAB URINALYSIS - AUTOMATED METHOD 12/11/2024 10:24 AM [facility] Bacteria, Urine Many(A) Negative /HPF LAB URINALYSIS - AUTOMATED METHOD 12/11/2024 10:24 AM [facility] Hyaline Casts, Urine 2.4 0 - 3 /LPF LAB URINALYSIS - AUTOMATED METHOD 12/11/2024 10:24 AM [facility] Urine Urine specimen obtained by clean catch procedure / Unknown 12/10/2024 4:30 AM EDT 12/11/2024 9:17 AM EDT us Eusebio Sprague MD LAB URINE ORDERABLES Final Resul t [facility] [address] [place] [address], * (ABNORMAL) Culture urine (12/10/2024 4:30 AM EDT) Culture, Urine >=100,000 CFU/mL Enterococcus faecium(A) RAMA 12/14/2024 8:27 AM EDT [facility] Comment: Edited result: Previously reported as Gram Positive Cocci on 12/12/2024 at 1105 EDT. Culture, Urine 10,000-49,000 CFU/mL Enterococcus faecalis(A) RAMA 12/14/2024 8:27 AM EDT [facility] LAB Comment: The organism value for this result has been updated. These results have been appended to the previously preliminary verified report. Urine Urine specimen obtained by clean catch procedure / Unknown 12/10/2024 4:30 AM EDT 12/11/2024 9:17 AM EDT Narrative [facility] - 12/14/2024 8:27 AM EDT Additional [...] MICROBIOLOGY - GENERAL ORDER GONZALEZ Final Result [facility] [address] [place] [address], [place] [phone] * (ABNORMAL) Complete blood count (12/08/2024 6:23 AM EDT) Only the most recent of5 resultswithin the time period is included. WBC 5.6 4.8 - 10.8 K/mcL LAB HEMETOLOGY METHOD 12/08/2024 11:03 AM [facility] RBC 3.80 3.80 - 4.80 M/mcL LAB HEMETOLOGY METHOD 12/08/2024 11:03 AM EDT [facility] Hemoglobin 11.8 11.5 - 16.0 g/dL LAB HEMETOLOGY METHOD 12/08/2024 11:03 AM EDT [facility] Hematocrit 37.4 35.0 - 47.0 % LAB HEMETOLOGY METHOD 12/08/2024 11:03 AM [facility] MCV 99.2(H) 79.0 - 98.0 FL LAB HEMETOLOGY METHOD 12/08/2024 11:03 AM EDT [facility] MCH 31.3 27.0 - 32.0 pcg LAB HEMETOLOGY METHOD 12/08/2024 11:03 AM [facility] MCHC 31.6(L) 32.0 - 37.0 g/dL LAB HEMETOLOGY METHOD 12/08/2024 11:03 AM [facility] RDW 14.4 11.0 - 15.0 % LAB HEMETOLOGY METHOD 12/08/2024 11:03 AM EDT [facility] LAB Platelets 176 130 - 400 K/mcL LAB HEMETOLOGY METHOD 12/08/2024 11:03 AM EDT [facility] MPV 10.0 7.0 - 11.0 FL LAB HEMETOLOGY METHOD 12/08/2024 11:03 AM EDT [facility] NRBC 0.0 <1.0 % LAB HEMETOLOGY METHOD 12/08/2024 11:03 AM EDT [facility] NRBC Absolute 0.00 <0.10 K/mcL LAB HEMETOLOGY METHOD 12/08/2024 11:03 AM EDT [facility] Blood Venous blood specimen / Unknown Venipuncture / Unknown 12/08/2024 6:23 AM EDT 12/08/2024 10:07 AM EDT us Eusebio Sprague MD LAB BLOOD ORDERABLES Final Resul t [facility] LAB [address] [place] [address], * (ABNORMAL) Basic metabolic panel (12/08/2024 6:23 AM EDT) Only the most recent of3 resultswithin the time period is included. Sodium 141 133 - 145 mmol/L LAB CHEMISTRY METHOD 12/08/2024 1:54 PM [facility] Potassium 5.1 3.5 - 5.5 mmol/L LAB CHEMISTRY METHOD 12/08/2024 1:54 PM [facility] Chloride 111(H) 96 - 110 mmol/L LAB CHEMISTRY METHOD 12/08/2024 1:54 PM [facility] CO2 23 21 - 32 mmol/L LAB CHEMISTRY METHOD 12/08/2024 1:54 PM EDT [facility] Anion Gap 7 3 - 11 LAB CHEMISTRY METHOD 12/08/2024 1:54 PM EDT [facility] Glucose 68(L) 70 - 100 mg/dL LAB CHEMISTRY METHOD 12/08/2024 1:54 PM EDT [facility] BUN 34(H) 5 - 25 mg/dL LAB CHEMISTRY METHOD 12/08/2024 1:54 PM EDT [facility] Creatinine 1.55(H) 0.50 - 1.10 mg/dL LAB CHEMISTRY METHOD 12/08/2024 1:54 PM EDT [facility] eGFR 32(L) >=60 mL/min/1. 73m2 LAB CHEMISTRY METHOD 12/08/2024 1:54 PM EDT [facility] Comment:Calculation based on the Chronic Kidney Disease Epidemiology Collaboration (CKD-EPI) equation refit without adjustment for race. BUN/Creatinine Ratio 21.9 LAB CHEMISTRY METHOD 12/08/2024 1:54 PM EDT [facility] Calcium 8.8 8.5 - 10.5 mg/dL LAB CHEMISTRY METHOD 12/08/2024 1:54 PM EDT [facility] Blood Venous blood specimen / Unknown Venipuncture / Unknown 12/08/2024 6:23 AM EDT 12/08/2024 10:07 AM EDT us Eusebio Sprague MD LAB BLOOD ORDERABLES Final Resul t [facility] [address] [place] [address], * Vitamin B12 and folate (11/24/2024 6:19 AM EDT) Vitamin B-12 470 250 - 900 pcg/mL LAB CHEMISTRY METHOD 11/24/2024 11:28 AM EDT [facility] Folate 6.3 2.8 - 17.0 ng/ml LAB CHEMISTRY METHOD 11/24/2024 11:28 AM EDT [facility] Blood Venous blood specimen / Unknown Venipuncture / Unknown 11/24/2024 6:19 AM EDT 11/24/2024 10:10 AM EDT us Reena FOSTER LAB BLOOD ORDERABLES Final Resu lt Performing Organization Address [facility]/ZIP Co de Phone Number [facility] LAB [address] [place] [address], [place] [phone] * (ABNORMAL) Vitamin D 25 hydroxy (11/24/2024 6:19 AM EDT) Only the most recent of2 resultswithin the time period is included. Vit D, 25-Hydroxy 29.0(L) 30.0 - 80.0 ng/mL LAB CHEMISTRY METHOD 11/24/2024 11:59 AM EDT [facility] LAB Blood Venous blood specimen / Unknown Venipuncture / Unknown 11/24/2024 6:19 AM EDT 11/24/2024 10:10 AM EDT us Reena FOSTER LAB BLOOD ORDERABLES Final Resu lt Performing Organization Address [facility] de Phone Number [facility] LAB [address] [place] [address], [place] [phone] * (ABNORMAL) Thyroid stimulating hormone (11/24/2024 6:19 AM EDT) Only the most recent of2 resultswithin the time period is included. TSH 4.43(H) 0.40 - 4.00 mcIU/mL LAB CHEMISTRY METHOD 11/24/2024 11:59 AM EDT [facility] Blood Venous blood specimen / Unknown Venipuncture / Unknown 11/24/2024 6:19 AM EDT 11/24/2024 10:10 AM EDT us Reena FOSTER LAB BLOOD ORDERABLES Final Resu lt [facility] LAB [address] [place] [address], [place] [phone] * Magnesium (11/24/2024 6:19 AM EDT) Only the most recent of2 resultswithin the time period is included. Pathologist [facility] Magnesium 2.4 1.9 - 2.6 mg/dL LAB CHEMISTRY METHOD 11/24/2024 11:02 AM EDT [facility] Blood Venous blood specimen / Unknown Venipuncture / Unknown 11/24/2024 6:19 AM EDT 11/24/2024 10:10 AM EDT Reena FOSTER LAB BLOOD ORDERABLES Final Resu lt [facility] LAB [address] [place] [address], * (ABNORMAL) Comprehensive metabolic panel (11/24/2024 6:19 AM EDT) Only the most recent of2 resultswithin the time period is included. [facility] Sodium 139 133 - 145 mmol/L LAB CHEMISTRY METHOD 11/24/2024 11:28 AM [facility] Potassium 5.1 3.5 - 5.5 mmol/L LAB CHEMISTRY METHOD 11/24/2024 11:28 AM [facility] Chloride 108 [...] g/dL LAB CHEMISTRY METHOD 11/24/2024 11:28 AM [facility] Albumin 2.3(L) 3.2 - 5.0 g/dL LAB CHEMISTRY METHOD 11/24/2024 11:28 AM [facility] Total Bilirubin 0.3 0.0 - 1.4 mg/dL LAB CHEMISTRY METHOD 11/24/2024 11:28 AM [facility] Blood Venous blood specimen / Unknown Venipuncture / Unknown 11/24/2024 6:19 AM EDT 11/24/2024 10:10 AM EDT Reena FOSTER LAB BLOOD ORDERABLES Final Resu lt Performing Organization Address [facility] Co de Phone Number [facility] [address] [place] [address], [place] [phone] * Folate (11/05/2024 6:51 AM EDT) Folate 8.7 2.8 - 17.0 ng/ml LAB CHEMISTRY METHOD 11/05/2024 12:33 PM EDT [facility] Blood Venous blood specimen / Unknown Venipuncture / Unknown 11/05/2024 6:51 AM EDT 11/05/2024 10:39 AM EDT Eusebio Sprague MD LAB BLOOD ORDERABLES Final Resul t Performing Organization Address [facility] de Phone Number [facility] [address] [place] [address], [place] [phone] * Vitamin B12 (11/05/2024 6:51 AM EDT) Vitamin B-12 387 250 - 900 pcg/mL LAB CHEMISTRY METHOD 11/05/2024 12:33 PM EDT [facility] Blood Venous blood specimen / Unknown Venipuncture / Unknown 11/05/2024 6:51 AM EDT 11/05/2024 10:39 AM EDT Eusebio Sprague MD LAB BLOOD ORDERABLES Final Resul t Performing Organization Address [facility]/ZIP Co de Phone Number [facility] [address] [place] [address], [place] [phone] from [place] [address] [place] [address] [employer] Care Teams Warehouse Order Filler Relationship Specialty Start Date End Date Eusebio Sprague MD [address] [facility] [address] [place] [address] PCP - General Geriatric Medicine 11/05/24
--- OUTSIDE RECORDS SUMMARY | 2024-12-16 11:23 | XMS_ITS | Encounter Summary ---
Author Organization [employer] Address [address] [place] [address] Care Team Providers Care Radiology Special Procedure Tech Name Role Phone Eusebio Sprague MD Primary Care Provider [phone] Encounter Details Date Type Department Care Team (Late st Contact Info) Description 11/05/2024 Lab Requisition [facility] - Main Lab [address] [facility] [place] [address] Eusebio Sprague MD [address] [place], [place] [id number] Unspecified atrial fibrillation (CMS/HCC V24, CMS/HCC V28) [...] sec LAB COAGULATION METHOD 11/06/2024 9:24 AM [facility] LAB INR 1.6 LAB COAGULATION METHOD 11/06/2024 9:24 AM [facility] LAB Blood Venous blood specimen / Unknown Venipuncture / Unknown 11/06/2024 7:06 AM EDT 11/06/2024 9:01 AM EDT Eusebio Sprague MD LAB BLOOD ORDERABLES Final Resul t [facility] ([facility]) [facility] LAB [address] [place] [address], documented in this encounter Visit Diagnoses Diagnosis Unspecified atrial fibrillation (CMS/HCC V24, CMS/HCC V28) documented in this encounter Care Teams Radiology Special Procedure Tech Relationship Specialty Start Date End Date Eusebio Sprague MD [address] [place] [address] [address] [place] [address] PCP - General Geriatric Medicine 11/05/24 documented as of this encounter
--- OUTSIDE RECORDS SUMMARY | 2024-12-16 11:23 | XMS_ITS | Encounter Summary ---
Author Organization [employer] Address [address] [place] [address] Care Team Providers Care Mortuary Operations Manager Name Role Phone Eusebio Sprague MD Primary Care Provider [phone] Encounter Details Date Type Department Care Team (Late st Contact Info) Description 11/08/2024 Lab Requisition [facility] - Main Lab [address] [facility] [place] [address] Eusebio Sprague MD [address] [place], [place] [phone] Unspecified atrial fibrillation (CMS/HCC V24, CMS/HCC V28); [...] (CMS/HCC V24, CMS/HCC V28) Heart failure, unspecified ([facility] V24, [facility] V28) documented in this encounter Results * (ABNORMAL) Basic metabolic panel (11/10/2024 6:08 AM EDT) Sodium 139 133 - 145 mmol/L LAB CHEMISTRY METHOD 11/10/2024 1:25 PM [facility] LAB Potassium 4.6 3.5 - 5.5 mmol/L LAB CHEMISTRY METHOD 11/10/2024 1:25 PM [facility] Chloride 111(H) 96 - 110 mmol/L LAB CHEMISTRY METHOD 11/10/2024 1:25 PM [facility] LAB CO2 22 21 - 32 mmol/L LAB CHEMISTRY METHOD 11/10/2024 1:25 PM [facility] LAB Anion Gap 6 3 - 11 LAB CHEMISTRY METHOD 11/10/2024 1:25 PM [facility] Glucose 64(L) 70 - 100 mg/dL LAB CHEMISTRY METHOD 11/10/2024 1:25 PM [facility] BUN 44(H) 5 - 25 mg/dL LAB CHEMISTRY METHOD 11/10/2024 1:25 PM [facility] Creatinine 1.53(H) 0.50 - 1.10 mg/dL LAB CHEMISTRY METHOD 11/10/2024 1:25 PM [facility] eGFR 33(L) >=60 mL/min/1. 73m2 LAB CHEMISTRY METHOD 11/10/2024 1:25 PM [facility] LAB Comment:Calculation based on the Chronic Kidney Disease Epidemiology Collaboration (CKD-EPI) equation refit without adjustment for race. BUN/Creatinine Ratio 28.8 LAB CHEMISTRY METHOD 11/10/2024 1:25 PM [facility] Calcium 8.2(L) 8.5 - 10.5 mg/dL LAB CHEMISTRY METHOD 11/10/2024 1:25 PM [facility] Blood Venous blood specimen / Unknown Venipuncture / Unknown 11/10/2024 6:08 AM EDT 11/10/2024 11:46 AM EDT Eusebio Sprague MD LAB BLOOD ORDERABLES Final Resul t [facility] [address] [place] [address], * (ABNORMAL) Complete blood count (11/10/2024 6:08 AM EDT) WBC 6.8 4.8 - 10.8 K/mcL LAB HEMETOLOGY METHOD 11/10/2024 1:46 PM EDT [facility] RBC 3.40(L) 3.80 - 4.80 M/mcL LAB HEMETOLOGY METHOD 11/10/2024 1:46 PM EDT [facility] Hemoglobin 11.0(L) 11.5 - 16.0 g/dL LAB HEMETOLOGY METHOD 11/10/2024 1:46 PM EDT [facility] Hematocrit 34.4(L) 35.0 - 47.0 % LAB HEMETOLOGY METHOD 11/10/2024 1:46 PM EDT [facility] MCV 100.6(H) 79.0 - 98.0 FL LAB HEMETOLOGY METHOD 11/10/2024 1:46 PM EDT [facility] MCH 32.2(H) 27.0 - 32.0 pcg LAB HEMETOLOGY METHOD 11/10/2024 1:46 PM EDT [facility] MCHC 32.0 32.0 - 37.0 g/dL LAB HEMETOLOGY METHOD 11/10/2024 1:46 PM EDT [facility] RDW 14.5 11.0 - 15.0 % LAB HEMETOLOGY METHOD 11/10/2024 1:46 PM EDT [facility] Platelets 160 130 - 400 K/mcL LAB HEMETOLOGY METHOD 11/10/2024 1:46 PM EDT [facility] MPV 10.1 7.0 - 11.0 FL LAB HEMETOLOGY METHOD 11/10/2024 1:46 PM EDT [facility] NRBC 0.0 <1.0 % LAB HEMETOLOGY METHOD 11/10/2024 1:46 PM EDT [facility] NRBC Absolute 0.00 <0.10 K/mcL LAB HEMETOLOGY METHOD 11/10/2024 1:46 PM EDT [facility] Blood Venous blood specimen / Unknown Venipuncture / Unknown 11/10/2024 6:08 AM EDT 11/10/2024 11:46 AM EDT us Eusebio Sprague MD LAB BLOOD ORDERABLES Final Resul t [facility] [address] [place] [address], [place] [phone] * (ABNORMAL) Prothrombin time with INR (11/10/2024 6:08 AM EDT) Protime 33.8(H) 10.6 - 13.9 sec LAB COAGULATION METHOD 11/10/2024 12:48 PM EDT [facility] INR 2.7 LAB COAGULATION METHOD 11/10/2024 12:48 PM EDT [facility] Blood Venous blood specimen / Unknown Venipuncture / Unknown 11/10/2024 6:08 AM EDT 11/10/2024 11:46 AM EDT us Eusebio Sprague MD LAB BLOOD ORDERABLES Final Resul t [facility] [address] [place], [place] [address] [phone] documented in this encounter Visit Diagnoses Diagnosis Unspecified atrial fibrillation (CMS/[facility] V24, CMS/HCC V28) Heart failure, unspecified (CMS/[facility] V24, CMS/[facility] V28) Heart failure, unspecified documented in this encounter Care Teams Mortuary Operations Manager Relationship Specialty Start Date End Date Eusebio Sprague MD [address] [place] [address] [address] [place] [address] PCP - General Geriatric Medicine 11/05/24 documented as of this encounter
--- OUTSIDE RECORDS SUMMARY | 2024-12-16 11:23 | XMS_ITS | Encounter Summary ---
Author Organization [employer] Address [address] [place] [address] Care Team Providers Care Property Claims Manager Name Role Phone Eusebio Sprague MD Primary Care Provider [phone] Encounter Details Date Type Department Care Team (Late st Contact Info) Description 12/03/2024 Lab Requisition [facility] - Main Lab [address] [facility] [place] [address] Eusebio Sprague MD [address] [place], [place] [phone] Unspecified atrial fibrillation (CMS/HCC V24, CMS/HCC V28) [...] sec LAB COAGULATION METHOD 12/04/2024 9:04 AM [facility] INR 2.4 LAB COAGULATION METHOD 12/04/2024 9:04 AM [facility] Blood Venous blood specimen / Unknown Venipuncture / Unknown 12/04/2024 6:47 AM EDT 12/04/2024 8:37 AM EDT Eusebio Sprague MD LAB BLOOD ORDERABLES Final Resul t [facility] ([facility]) [facility] [address] [place] [address], documented in this encounter Visit Diagnoses Diagnosis Unspecified atrial fibrillation (CMS/HCC V24, CMS/HCC V28) documented in this encounter Care Teams Property Claims Manager Relationship Specialty Start Date End Date Eusebio Sprague MD [address] [place] [address] [address] [place] [address] PCP - General Geriatric Medicine 11/05/24 documented as of this encounter
--- OUTSIDE RECORDS SUMMARY | 2024-12-16 11:23 | XMS_ITS | Encounter Summary ---
Author Organization [employer] Address [address] [place] [address] Care Team Providers Care Trailer Assembler Name Role Phone Eusebio Sprague MD Primary Care Provider Encounter Details Date Type Department Care Team (Late st Contact Info) Description 11/12/2024 Lab Requisition [facility] - Main Lab [address] [facility] [place] [address] Eusebio Sprague MD [address] [place], [place] [id number] Unspecified atrial fibrillation (CMS/HCC V24, CMS/HCC V28) [...] V28) documented in this encounter Care Teams Trailer Assembler Relationship Specialty Start Date End Date Eusebio Sprague MD [address] [place], [place] [id number] PCP - General Geriatric Medicine 11/05/24 documented as of this encounter
--- OUTSIDE RECORDS SUMMARY | 2024-12-16 11:23 | XMS_ITS | Patient Health Record ---
Author Organization [facility] Address [address] [place] [address] Care Team Providers Care Seam Feller Name Role Phone Kim LOPEZ, Jose Cruz [...] Problem Status W/U Status Risk Notes Problem [id number] MCC (curre nt) use of anticoagulants (Z79.01) Active confirmed Problem 95464559 Iron deficiency anemia (D50.9) Active confirmed Problem 57266394 Colon polyp (K63.5) Active confirmed Problem 96187435 Erosive esophagi tis (K22.10) Active confirmed Plan Of Treatment Future Test Test Name Order Date UPPER GI ENDOSCOPY 03/01/2016 COLONOSCOPY 03/01/2016 Insurance Providers Payer Name Payer Address Payer Phone Subscriber Number Group Number Insured Name Patient Relationship to Insured Coverage Start Date Coverage End Date [facility] [address] [facility] [phone] [id number] CHRISTAL ROGERS Self - patient is the insured Medical (General) History Medical History History ICD Code colonoscopy 07-02-10 hemorrhoids history of intermittent rectal itching a nd discomfort breast cancer on the left, s tatus post mastectomy and lymph node resetion in 1992 hypertension melanoma shingles with post-hepatic neuralgia Denies [place],DM,CVA,Lung disease,renal dise ase Atrial fibrillation blood clots Surgical History Surgery Date(Month/Year) mastectomy and lymph node resection in -left breast removal of melanoma from the back hysterectomy for fibroid disease lumpectomy, right breast 2013
--- OUTSIDE RECORDS SUMMARY | 2024-12-16 11:23 | XMS_ITS | Encounter Summary ---
Author Organization [employer] Address [address] [place] [address] Care Team Providers Care Insurance Compliance Analyst Name Role Phone Eusebio Sprague MD Primary Care Provider [phone] Encounter Details Date Type Department Care Team (Late st Contact Info) Description 11/29/2024 Lab Requisition [facility] - Main Lab [address] [place] [address] Eusebio Sprague MD [address] [place], [place] [id number] Unspecified atrial fibrillation (CMS/HCC V24, CMS/HCC V28); [...] mmol/L LAB CHEMISTRY METHOD 12/01/2024 12:[address] [facility] Potassium 4.7 3.5 - 5.5 mmol/L LAB CHEMISTRY METHOD 12/01/2024 12:[address] [facility] Chloride 113(H) 96 - 110 mmol/L LAB CHEMISTRY METHOD 12/01/2024 12:[address] [facility] CO2 25 21 - 32 mmol/L LAB CHEMISTRY METHOD 12/01/2024 12:[address] [facility] Anion Gap 4 3 - 11 LAB CHEMISTRY METHOD 12/01/2024 12:[address] [facility] Glucose 71 70 - 100 mg/dL LAB CHEMISTRY METHOD 12/01/2024 12:[address] [facility] BUN 38(H) 5 - 25 mg/dL LAB CHEMISTRY METHOD 12/01/2024 12:[address] [facility] Creatinine 1.61(H) 0.50 - 1.10 mg/dL LAB CHEMISTRY METHOD 12/01/2024 12:[address] [facility] eGFR 31(L) >=60 mL/min/1. 73m2 LAB CHEMISTRY METHOD 12/01/2024 12:[address] [facility] Comment:Calculation based on the Chronic Kidney Disease Epidemiology Collaboration (CKD-EPI) equation refit without adjustment for race. BUN/Creatinine Ratio 23.6 LAB CHEMISTRY METHOD 12/01/2024 12:[address] [facility] Calcium 8.8 8.5 - 10.5 mg/dL LAB CHEMISTRY METHOD 12/01/2024 12:[address] [facility] Blood Venous blood specimen / Unknown Venipuncture / Unknown 12/01/2024 6:20 AM EDT 12/01/2024 9:55 AM EDT us Eusebio Sprague MD LAB BLOOD ORDERABLES Final Resul t [facility] [address] [place] [address], * (ABNORMAL) Complete blood count (12/01/2024 6:20 AM EDT) WBC 4.6(L) 4.8 - 10.8 K/mcL LAB HEMETOLOGY METHOD 12/01/2024 11:37 AM EDT [facility] RBC 3.50(L) 3.80 - 4.80 M/mcL LAB HEMETOLOGY METHOD 12/01/2024 11:37 AM EDT [facility] Hemoglobin 10.9(L) 11.5 - 16.0 g/dL LAB HEMETOLOGY METHOD 12/01/2024 11:37 AM EDT [facility] Hematocrit 35.0 35.0 - 47.0 % LAB HEMETOLOGY METHOD 12/01/2024 11:37 AM EDT [facility] MCV 100.0(H) 79.0 - 98.0 FL LAB HEMETOLOGY METHOD 12/01/2024 11:37 AM EDT [facility] MCH 31.1 27.0 - 32.0 pcg LAB HEMETOLOGY METHOD 12/01/2024 11:37 AM EDT [facility] MCHC 31.1(L) 32.0 - 37.0 g/dL LAB HEMETOLOGY METHOD 12/01/2024 11:37 AM EDT [facility] RDW 14.2 11.0 - 15.0 % LAB HEMETOLOGY METHOD [facility] Platelets 173 130 - 400 K/mcL LAB HEMETOLOGY METHOD 12/01/2024 11:37 AM EDT [facility] MPV 9.7 7.0 - 11.0 FL LAB HEMETOLOGY METHOD 12/01/2024 11:37 AM EDT [facility] NRBC 0.0 <1.0 % LAB HEMETOLOGY METHOD 12/01/2024 11:37 AM EDT [facility] NRBC Absolute 0.00 <0.10 K/mcL LAB HEMETOLOGY METHOD 12/01/2024 11:37 AM EDT [facility] Blood Venous blood specimen / Unknown Venipuncture / Unknown 12/01/2024 6:20 AM EDT 12/01/2024 9:55 AM EDT Eusebio Sprague MD LAB BLOOD ORDERABLES Final Resul t Performing Organization Address [facility] Co de Phone Number [facility] [address] [place] [address], [place] [phone] * (ABNORMAL) Prothrombin time with INR (12/01/2024 6:20 AM EDT) Protime 19.3(H) 10.6 - 13.9 sec LAB COAGULATION METHOD 12/01/2024 11:46 AM EDT [facility] INR 1.5 LAB COAGULATION METHOD 12/01/2024 11:46 AM EDT [facility] Blood Venous blood specimen / Unknown Venipuncture / Unknown 12/01/2024 6:20 AM EDT 12/01/2024 9:55 AM EDT Eusebio Sprague MD LAB BLOOD ORDERABLES Final Resul t Performing Organization Address City/[facility]/ZIP Co de Phone Number [facility] [address] [place] [address], [place] [phone] documented in this encounter Visit Diagnoses Diagnosis Unspecified atrial fibrillation (CMS/HCC V24, CMS/HCC V28) Essential (primary) hypertension Unspecified essential hypertension documented in this encounter Care Teams Insurance Compliance Analyst Relationship Specialty Start Date End Date Eusebio Sprague MD [address] [place] [address] [address] [place] [address] PCP - General Geriatric Medicine 11/05/24 documented as of this encounter
== END 2024-12-12 10:02 | disposition home or self-care (01) ==
LOC: HO.HOSX 10:01
PROVIDERS: Visit Provider Physician Assistant
DX: S82.63XA Displaced fracture of lateral malleolus of unspecified fibula, initial encounter for closed fracture (principal); M25.572 Pain in left ankle and joints of left foot; X58.XXXA Exposure to other specified factors, initial encounter
CPT/HCPCS: 73610; 99212

== ENCOUNTER 2024-12-12 13:14 | Outpatient (AMB) | payer MEDICARE, SELFPAY ==
--- OUTSIDE RECORDS SUMMARY | 2024-12-12 13:33 | XMS_ITS | Encounter Summary ---
Author Organization Rep Address [address] [place] [address] Care Team Providers Care Pocket Flap Creasing Machine Operator Name Role Phone Eusebio Sprague MD Primary Care Provider [phone] Encounter Details Date Type Department Care Team (Late st Contact Info) Description 11/12/2024 Lab Requisition [facility] - Main Lab [address] [place] [address] Eusebio Sprague MD [address] [place], [place] [id number] Unspecified atrial fibrillation (CMS/HCC V24, CMS/HCC V28) Social History Tobacco Use Types Packs/Day Years Used Date Smoking Tobacco: Never Assessed Comments Unknown Sex and Gender Information Value Date Recorded Sex Assigned at Not on file Legal Sex Female 11:23 PM EST Gender Identity Not on file Sexual Orientation Not on file documented as of this encounter Plan of Treatment Not on file documented as of this encounter Visit Diagnoses Diagnosis Unspecified atrial fibrillation (CMS/HCC V24, CMS/HCC V28) documented in this encounter Care Teams Pocket Flap Creasing Machine Operator Relationship Specialty Start Date End Date Eusebio Sprague MD [address] [place], [place] [id number] PCP - General Geriatric Medicine 11/05/24 documented as of this encounter
--- OUTSIDE RECORDS SUMMARY | 2024-12-12 13:33 | XMS_ITS | Encounter Summary ---
Author Organization [employer] Address [address] [place] [address] Care Team Providers Care Emergency Department Clinician Name Role Phone Eusebio Sprague MD Primary Care Provider [phone] Encounter Details Date Type Department Care Team (Late st Contact Info) Description 11/05/2024 Lab Requisition [facility] - Main Lab [address] [place] [address] Eusebio Sprague MD [address] [place], [place] [id number] Unspecified atrial fibrillation (CMS/HCC V24, CMS/HCC V28); Nontoxic single thyroid nodule; Essential (primary) hypertension; Heart failure, unspecified (CMS/HCC V24, CMS/HCC V28); Vitamin D deficiency, unspecified; Diverticulum of bladder Social History Tobacco Use Types Packs/Day Years Used Date Smoking Tobacco: Never Assessed Comments Unknown Sex and Gender Information Value Date Recorded Sex Assigned at Not on file Legal Sex Female 11:23 PM EST Gender Identity Not on file Sexual Orientation Not on file documented as of this encounter Plan of Treatment Not on file documented as of this encounter Procedures Procedure Name Priority Date/Time Associated Diagnosis Comments VITAMIN D 25 HYDROXY Routine 11/05/2024 6:51 AM EDT Unspecified atrial fibrillation (CMS/HCC V24, CMS/HCC V28) Nontoxic single thyroid nodule Essential (primary) hypertension Heart failure, unspecified (CMS/HCC V24, CMS/HCC V28) Vitamin D deficiency, unspecified Diverticulum of bladder PROTHROMBIN TIME WITH INR Routine 11/05/2024 6:51 AM EDT Unspecified atrial fibrillation (CMS/HCC V24, CMS/HCC V28) Nontoxic single thyroid nodule Essential (primary) hypertension Heart failure, unspecified (CMS/HCC V24, CMS/HCC V28) Vitamin D deficiency, unspecified Diverticulum of bladder COMPLETE BLOOD COUNT Routine 11/05/2024 6:51 AM EDT Unspecified atrial fibrillation (CMS/HCC V24, CMS/HCC V28) Nontoxic single thyroid nodule Essential (primary) hypertension Heart failure, unspecified (CMS/HCC V24, CMS/HCC V28) Vitamin D deficiency, unspecified Diverticulum of bladder THYROID STIMULATING HORMONE Routine 11/05/2024 6:51 AM EDT Unspecified atrial fibrillation (CMS/HCC V24, CMS/HCC V28) Nontoxic single thyroid nodule Essential (primary) hypertension Heart failure, unspecified (CMS/HCC V24, CMS/HCC V28) Vitamin D deficiency, unspecified Diverticulum of bladder MAGNESIUM Routine 11/05/2024 6:51 AM EDT Unspecified atrial fibrillation (CMS/HCC V24, CMS/HCC V28) Nontoxic single thyroid nodule Essential (primary) hypertension Heart failure, unspecified (CMS/HCC V24, CMS/HCC V28) Vitamin D deficiency, unspecified Diverticulum of bladder FOLATE Routine 11/05/2024 6:51 AM EDT Unspecified atrial fibrillation (CMS/HCC V24, CMS/HCC V28) Nontoxic single thyroid nodule Essential (primary) hypertension Heart failure, unspecified (CMS/HCC V24, CMS/HCC V28) Vitamin D deficiency, unspecified Diverticulum of bladder VITAMIN B12 Routine 11/05/2024 6:51 AM EDT Unspecified atrial fibrillation (CMS/HCC V24, CMS/HCC V28) Nontoxic single thyroid nodule Essential (primary) hypertension Heart failure, unspecified (CMS/HCC V24, CMS/HCC V28) Vitamin D deficiency, unspecified Diverticulum of bladder COMPREHENSIVE METABOLIC PANEL Routine 11/05/2024 6:51 AM EDT Unspecified atrial fibrillation (CMS/HCC V24, CMS/HCC V28) Nontoxic single thyroid nodule Essential (primary) hypertension Heart failure, unspecified (CMS/HCC V24, CMS/HCC V28) Vitamin D deficiency, unspecified Diverticulum of bladder documented in this encounter Results * Magnesium (11/05/2024 6:51 AM EDT) [facility] Magnesium 2.5 1.9 - 2.6 mg/dL LAB CHEMISTRY METHOD 11/05/2024 12:06 PM EDT [facility] Blood Venous blood specimen / Unknown Venipuncture / Unknown 11/05/2024 6:51 AM EDT 11/05/2024 10:39 AM EDT us Eusebio Sprague MD LAB BLOOD ORDERABLES Final Resul t Performing Organization Address City/[facility]/ZIP Co de Phone Number [facility] [address] [place] [address], [place] [phone] * Thyroid stimulating hormone (11/05/2024 6:51 AM EDT) [facility] TSH 2.71 0.40 - 4.00 mcIU/mL LAB CHEMISTRY METHOD 11/05/2024 12:58 PM EDT [facility] Blood Venous blood specimen / Unknown Venipuncture / Unknown 11/05/2024 6:51 AM EDT 11/05/2024 10:39 AM EDT us Eusebio Sprague MD LAB BLOOD ORDERABLES Final Resul t [facility] [address] [place] [address], [place] [phone] * Vitamin D 25 hydroxy (11/05/2024 6:51 AM EDT) [facility] Vit D, 25-Hydroxy 38.0 30.0 - 80.0 ng/mL LAB CHEMISTRY METHOD 11/05/2024 12:58 PM EDT [facility] Blood Venous blood specimen / Unknown Venipuncture / Unknown 11/05/2024 6:51 AM EDT 11/05/2024 10:39 AM EDT us Eusebio Sprague MD LAB BLOOD ORDERABLES Final Resul t Performing Organization Address [facility] Co de Phone Number [facility] [address] [place] [address], [place] [phone] * Vitamin B12 (11/05/2024 6:51 AM EDT) [facility] Vitamin B-12 387 250 - 900 pcg/mL LAB CHEMISTRY METHOD 11/05/2024 12:33 PM EDT [facility] Blood Venous blood specimen / Unknown Venipuncture / Unknown 11/05/2024 6:51 AM EDT 11/05/2024 10:39 AM EDT us Eusebio Sprague MD LAB BLOOD ORDERABLES Final Resul t Performing Organization Address [facility] de Phone Number [facility] [address] [place] [address], [place] [phone] * Folate (11/05/2024 6:51 AM EDT) [facility] Folate 8.7 2.8 - 17.0 ng/ml LAB CHEMISTRY METHOD 11/05/2024 12:33 PM EDT [facility] Blood Venous blood specimen / Unknown Venipuncture / Unknown 11/05/2024 6:51 AM EDT 11/05/2024 10:39 AM EDT us Eusebio Sprague MD LAB BLOOD ORDERABLES Final Resul t Performing Organization Address [facility] Co de Phone Number [facility] [address] [place] [address], [place] [phone] * (ABNORMAL) Prothrombin time with INR (11/05/2024 6:51 AM EDT) [facility] Protime 17.5(H) 10.6 - 13.9 sec LAB COAGULATION METHOD 11/05/2024 11:22 AM [facility] INR 1.4 LAB COAGULATION METHOD 11/05/2024 11:22 AM [facility] Blood Venous blood specimen / Unknown Venipuncture / Unknown 11/05/2024 6:51 AM EDT 11/05/2024 10:39 AM EDT us Eusebio Sprague MD LAB BLOOD ORDERABLES Final Resul t [facility] [address] [place] [address], [place] [phone] * (ABNORMAL) Comprehensive metabolic panel (11/05/2024 6:51 AM EDT) [facility] Sodium 140 133 - 145 mmol/L LAB CHEMISTRY METHOD 11/05/2024 12:33 PM [facility] Potassium 4.9 3.5 - 5.5 mmol/L LAB CHEMISTRY METHOD 11/05/2024 12:33 PM [facility] Chloride 109 96 - 110 mmol/L LAB CHEMISTRY METHOD 11/05/2024 12:33 PM [facility] CO2 25 21 - 32 mmol/L LAB CHEMISTRY METHOD 11/05/2024 12:33 PM [facility] Anion Gap 6 3 - 11 LAB CHEMISTRY METHOD 11/05/2024 12:33 PM [facility] Glucose 86 70 - 100 mg/dL LAB CHEMISTRY METHOD 11/05/2024 12:33 PM [facility] BUN 61(H) 5 - 25 mg/dL LAB CHEMISTRY METHOD 11/05/2024 12:33 PM [facility] Creatinine 1.64(H) 0.50 - 1.10 mg/dL LAB CHEMISTRY METHOD 11/05/2024 12:33 PM [facility] eGFR 30(L) >=60 mL/min/1. 73m2 LAB CHEMISTRY METHOD 11/05/2024 12:33 PM [facility] Comment:Calculation based on the Chronic Kidney Disease Epidemiology Collaboration (CKD-EPI) equation refit without adjustment for race. BUN/Creatinine Ratio 37.2 LAB CHEMISTRY METHOD 11/05/2024 12:33 PM [facility] Calcium 9.2 8.5 - 10.5 mg/dL LAB CHEMISTRY METHOD 11/05/2024 12:33 PM [facility] AST (SGOT) 43(H) 10 - 42 unit/L LAB CHEMISTRY METHOD 11/05/2024 12:33 PM [facility] ALT (SGPT) 47 10 - 60 unit/L LAB CHEMISTRY METHOD 11/05/2024 12:33 PM [facility] Alkaline Phosphatase 85 42 - 121 unit/L LAB CHEMISTRY METHOD 11/05/2024 12:33 PM [facility] Total Protein 5.6(L) 6.0 - 8.0 g/dL LAB CHEMISTRY METHOD 11/05/2024 12:33 PM [facility] Albumin 3.0(L) 3.2 - 5.0 g/dL LAB CHEMISTRY METHOD 11/05/2024 12:33 PM [facility] Total Bilirubin 0.9 0.0 - 1.4 mg/dL LAB CHEMISTRY METHOD 11/05/2024 12:33 PM [facility] Blood Venous blood specimen / Unknown Venipuncture / Unknown 11/05/2024 6:51 AM EDT 11/05/2024 10:39 AM EDT us Eusebio Sprague MD LAB BLOOD ORDERABLES Final Resul t [facility] [address] [place] [address], * (ABNORMAL) Complete blood count (11/05/2024 6:51 AM EDT) [facility] WBC 5.3 4.8 - 10.8 K/mcL LAB HEMETOLOGY METHOD 11/05/2024 11:32 AM [facility] RBC 3.60(L) 3.80 - 4.80 M/mcL LAB HEMETOLOGY METHOD 11/05/2024 11:32 AM [facility] Hemoglobin 11.7 11.5 - 16.0 g/dL LAB HEMETOLOGY METHOD 11/05/2024 11:32 AM [facility] Hematocrit 35.8 35.0 - 47.0 % LAB HEMETOLOGY METHOD 11/05/2024 11:32 AM [facility] MCV 100.8(H) 79.0 - 98.0 FL LAB HEMETOLOGY METHOD 11/05/2024 11:32 AM [facility] MCH 33.0(H) 27.0 - 32.0 pcg LAB HEMETOLOGY METHOD 11/05/2024 11:32 AM [facility] MCHC 32.7 32.0 - 37.0 g/dL LAB HEMETOLOGY METHOD 11/05/2024 11:32 AM [facility] RDW 14.0 11.0 - 15.0 % LAB HEMETOLOGY METHOD 11/05/2024 11:32 AM [facility] Platelets 159 130 - 400 K/mcL LAB HEMETOLOGY METHOD 11/05/2024 11:32 AM [facility] MPV 10.3 7.0 - 11.0 FL LAB HEMETOLOGY METHOD 11/05/2024 11:32 AM [facility] NRBC 0.0 <1.0 % LAB HEMETOLOGY METHOD 11/05/2024 11:32 AM [facility] NRBC Absolute 0.00 <0.10 K/mcL LAB HEMETOLOGY METHOD 11/05/2024 11:32 AM EDT [facility] Blood Venous blood specimen / Unknown Venipuncture / Unknown 11/05/2024 6:51 AM EDT 11/05/2024 10:39 AM EDT us Eusebio Sprague MD LAB BLOOD ORDERABLES Final Resul t [facility] [address] [place] [address], documented in this encounter Visit Diagnoses Diagnosis Unspecified atrial fibrillation (CMS/HCC V24, CMS/HCC V28) Nontoxic single thyroid nodule Nontoxic uninodular goiter Essential (primary) hypertension Unspecified essential hypertension Heart failure, unspecified (CMS/HCC V24, CMS/HCC V28) Heart failure, unspecified Vitamin D deficiency, unspecified Diverticulum of bladder documented in this encounter Care Teams Emergency Department Clinician Relationship Specialty Start Date End Date Eusebio Sprague MD [address] [place] [address] [address] [place] [address] PCP - General Geriatric Medicine 11/05/24 documented as of this encounter
--- OUTSIDE RECORDS SUMMARY | 2024-12-12 13:33 | XMS_ITS | Encounter Summary ---
Author Organization [employer] Address [address] [place] [address] Care Team Providers Care Neuro Psych Sales Specialist Name Role Phone Eusebio Sprague MD Primary Care Provider [phone] Encounter Details Date Type Department Care Team (Late st Contact Info) Description 12/11/2024 Lab Requisition [facility] - Main Lab [address] [facility] [place] [address] Eusebio Sprague MD [address] [place], [place] [id number] Frequency of micturition Social History Tobacco Use Types Packs/Day Years Used Date Smoking Tobacco: Never Assessed Comments Unknown Sex and Gender Information Value Date Recorded Sex Assigned at Not on file Legal Sex Female 11:23 PM EST Gender Identity Not on file Sexual Orientation Not on file documented as of this encounter Plan of Treatment Pending Results Name Type Priority Associated Diagnoses Date /Time Culture urine Microbiology Routine Frequency of micturition 12/10/2024 4:30 AM EDT documented as of this encounter Procedures Procedure Name Priority Date/Time Associated Diagnosis Comments URINALYSIS WITH REFLEX MICROSCOPIC Routine 12/10/2024 4:30 AM EDT Frequency of micturition URINALYSIS WITH REFLEX MICROSCOPIC Routine 12/10/2024 4:30 AM EDT Frequency of micturition CULTURE URINE Routine 12/10/2024 4:30 AM EDT Frequency of micturition documented in this encounter Results * (ABNORMAL) Urinalysis with reflex microscopic (12/10/2024 4:30 AM EDT) Specific [place] Urine 1.014 1.003 - 1.030 LAB URINALYSIS - AUTOMATED METHOD 12/11/2024 10:24 AM [facility] pH, Urine 5.5 5.0 - 8.0 pH LAB URINALYSIS - AUTOMATED METHOD 12/11/2024 10:24 AM [facility] Leukocytes, Urine Large(A) Negative LAB URINALYSIS - AUTOMATED METHOD 12/11/2024 10:24 AM [facility] Nitrite, Urine Negative Negative LAB URINALYSIS - AUTOMATED METHOD 12/11/2024 10:24 AM [facility] Protein, Urine Trace <=Trace mg/dL LAB URINALYSIS - AUTOMATED METHOD 12/11/2024 10:24 AM [facility] Glucose, Urine Negative Negative mg/dL LAB URINALYSIS - AUTOMATED METHOD 12/11/2024 10:24 AM [facility] Ketones, Urine Negative Negative mg/dL LAB URINALYSIS - AUTOMATED METHOD 12/11/2024 10:24 AM [facility] Urobilinogen, Urine 0.2 0.2 - 1.0 mg/dL LAB URINALYSIS - AUTOMATED METHOD 12/11/2024 10:24 AM [facility] Bilirubin, Urine Negative Negative LAB URINALYSIS - AUTOMATED METHOD 12/11/2024 10:24 AM [facility] Blood, Urine Small(A) Negative LAB URINALYSIS - AUTOMATED METHOD 12/11/2024 10:24 AM [facility] RBC, Urine 7.1(H) 0 - 4 /HPF LAB URINALYSIS - AUTOMATED METHOD 12/11/2024 10:24 AM [facility] WBC, Urine 990.7(H) 0 - 4 /HPF LAB URINALYSIS - AUTOMATED METHOD 12/11/2024 10:24 AM [facility] Squamous Epithelial, Urine 41 0 - 60 /LPF LAB URINALYSIS - AUTOMATED METHOD 12/11/2024 10:24 AM [facility] Bacteria, Urine Many(A) Negative /HPF LAB URINALYSIS - AUTOMATED METHOD 12/11/2024 10:24 AM EDT [facility] Hyaline Casts, Urine 2.4 0 - 3 /LPF LAB URINALYSIS - AUTOMATED METHOD 12/11/2024 10:24 AM EDT [facility] Urine Urine specimen obtained by clean catch procedure / Unknown 12/10/2024 4:30 AM EDT 12/11/2024 9:17 AM EDT us Eusebio Sprague MD LAB URINE ORDERABLES Final Resul t [facility] [address] [place] [address], documented in this encounter Visit Diagnoses Diagnosis Frequency of micturition Urinary frequency documented in this encounter Care Teams Neuro Psych Sales Specialist Relationship Specialty Start Date End Date Eusebio Sprague MD [address] [place] [address] [address] [place] [address] PCP - General Geriatric Medicine 11/05/24 documented as of this encounter
--- OUTSIDE RECORDS SUMMARY | 2024-12-12 13:33 | XMS_ITS | Encounter Summary ---
Author Organization [employer] Address [address] [place] [address] Care Team Providers Care Parquet Floor Layer'S Helper Name Role Phone Eusebio Sprague MD Primary Care Provider [phone] Encounter Details Date Type Department Care Team (Late st Contact Info) Description 12/05/2024 Lab Requisition [facility] - Main Lab [address] [place] [address] Eusebio Sprague MD [address] [place], [place] [id number] Unspecified atrial fibrillation (CMS/HCC V24, CMS/HCC V28); Essential (primary) hypertension Social History Tobacco Use Types Packs/Day Years [...] Procedure Name Priority Date/Time Associated Diagnosis Comments PROTHROMBIN TIME WITH INR Routine 12/08/2024 6:23 AM EDT Unspecified atrial fibrillation (CMS/HCC V24, CMS/HCC V28) Essential (primary) hypertension COMPLETE BLOOD COUNT Routine 12/08/2024 6:23 AM EDT Unspecified atrial fibrillation (CMS/HCC V24, CMS/HCC V28) Essential (primary) hypertension BASIC METABOLIC PANEL Routine 12/08/2024 6:23 AM EDT Unspecified atrial fibrillation (CMS/HCC V24, CMS/HCC V28) Essential (primary) hypertension documented in this encounter Results * (ABNORMAL) Basic metabolic panel (12/08/2024 6:23 AM EDT) Sodium 141 133 - 145 mmol/L LAB CHEMISTRY METHOD 12/08/2024 1:54 PM [facility] Potassium 5.1 3.5 - 5.5 mmol/L LAB CHEMISTRY METHOD 12/08/2024 1:54 PM [facility] Chloride 111(H) 96 - 110 mmol/L LAB CHEMISTRY METHOD 12/08/2024 1:54 PM [facility] CO2 23 21 - 32 mmol/L LAB CHEMISTRY METHOD 12/08/2024 1:54 PM [facility] Anion Gap 7 3 - 11 LAB CHEMISTRY METHOD 12/08/2024 1:54 PM [facility] Glucose 68(L) 70 - 100 mg/dL LAB CHEMISTRY METHOD 12/08/2024 1:54 PM [facility] BUN 34(H) 5 - 25 mg/dL LAB CHEMISTRY METHOD 12/08/2024 1:54 PM [facility] Creatinine 1.55(H) 0.50 - 1.10 mg/dL LAB CHEMISTRY METHOD 12/08/2024 1:54 PM [facility] eGFR 32(L) >=60 mL/min/1. 73m2 LAB CHEMISTRY METHOD 12/08/2024 1:54 PM [facility] Comment:Calculation based on the Chronic Kidney Disease Epidemiology Collaboration (CKD-EPI) equation refit without adjustment for race. BUN/Creatinine Ratio 21.9 LAB CHEMISTRY METHOD 12/08/2024 1:54 PM [facility] Calcium 8.8 8.5 - 10.5 mg/dL LAB CHEMISTRY METHOD 12/08/2024 1:54 PM [facility] Blood Venous blood specimen / Unknown Venipuncture / Unknown 12/08/2024 6:23 AM EDT 12/08/2024 10:07 AM EDT us Eusebio Sprague MD LAB BLOOD ORDERABLES Final Resul t [facility] [address] [place] [address], * (ABNORMAL) Complete blood count (12/08/2024 6:23 AM EDT) WBC 5.6 4.8 - 10.8 K/mcL LAB HEMETOLOGY METHOD 12/08/2024 11:03 AM EDT [facility] RBC 3.80 3.80 - 4.80 M/mcL LAB HEMETOLOGY METHOD 12/08/2024 11:[facility] Hemoglobin 11.8 11.5 - 16.0 g/dL LAB HEMETOLOGY METHOD 12/08/2024 11:03 AM [facility] Hematocrit 37.4 35.0 - 47.0 % LAB HEMETOLOGY METHOD 12/08/2024 11:03 AM [facility] MCV 99.2(H) 79.0 - 98.0 FL LAB HEMETOLOGY METHOD 12/08/2024 11:03 AM [facility] MCH 31.3 27.0 - 32.0 pcg LAB HEMETOLOGY METHOD 12/08/2024 11:03 AM [facility] MCHC 31.6(L) 32.0 - 37.0 g/dL LAB HEMETOLOGY METHOD 12/08/2024 11:03 AM [facility] RDW 14.4 11.0 - 15.0 % LAB HEMETOLOGY METHOD 12/08/2024 11:03 AM [facility] Platelets 176 130 - 400 K/mcL LAB HEMETOLOGY METHOD 12/08/2024 11:03 AM [facility] MPV 10.0 7.0 - 11.0 FL LAB HEMETOLOGY METHOD 12/08/2024 11:03 AM EDT [facility] NRBC 0.0 <1.0 % LAB HEMETOLOGY METHOD 12/08/2024 11:03 AM EDT [facility] NRBC Absolute 0.00 <0.10 K/mcL LAB HEMETOLOGY METHOD 12/08/2024 11:03 AM EDT [facility] Blood Venous blood specimen / Unknown Venipuncture / Unknown 12/08/2024 6:23 AM EDT 12/08/2024 10:07 AM EDT Eusebio Sprague MD LAB BLOOD ORDERABLES Final Resul t Performing Organization Address [facility] Co de Phone Number [facility] [address] [place] [address], [place] [phone] * (ABNORMAL) Prothrombin time with INR (12/08/2024 6:23 AM EDT) Protime 35.3(H) 10.6 - 13.9 sec LAB COAGULATION METHOD 12/08/2024 10:47 AM EDT [facility] INR 2.9 LAB COAGULATION METHOD 12/08/2024 10:47 AM EDT [facility] Blood Venous blood specimen / Unknown Venipuncture / Unknown 12/08/2024 6:23 AM EDT 12/08/2024 10:07 AM EDT Eusebio Sprague MD LAB BLOOD ORDERABLES Final Resul t Performing Organization Address City/[facility]/ZIP Co de Phone Number [facility] [address] [place] [address], [place] [phone] documented in this encounter Visit Diagnoses Diagnosis Unspecified atrial fibrillation (CMS/HCC V24, CMS/HCC V28) Essential (primary) hypertension Unspecified essential hypertension documented in this encounter Care Teams Parquet Floor Layer'S Helper Relationship Specialty Start Date End Date Eusebio Sprague MD [address] [place] [address] [address] [place] [address] PCP - General Geriatric Medicine 11/05/24 documented as of this encounter
--- OUTSIDE RECORDS SUMMARY | 2024-12-12 13:33 | XMS_ITS | Encounter Summary ---
Author Organization [employer] Address [address] [place] [address] Care Team Providers Care Hooker Machine Tender Name Role Phone Eusebio Sprague MD Primary Care Provider Encounter Details Date Type Department Care Team (Late st Contact Info) Description 12/03/2024 Lab Requisition [facility] - Main Lab [address] [facility] [place] [address] Eusebio Sprague MD [address] [place], [place] [phone] Unspecified atrial fibrillation (CMS/HCC V24, CMS/HCC V28) [...] Diagnosis Comments PROTHROMBIN TIME WITH INR Routine 12/04/2024 6:47 AM EDT Unspecified atrial fibrillation (CMS/HCC V24, CMS/HCC V28) documented in this encounter Results * (ABNORMAL) Prothrombin time with INR (12/04/2024 6:47 AM EDT) Protime 30.0(H) 10.6 - 13.9 sec LAB COAGULATION METHOD 12/04/2024 9:04 AM [facility] INR 2.4 LAB COAGULATION METHOD 12/04/2024 9:04 AM [facility] Blood Venous blood specimen / Unknown Venipuncture / Unknown 12/04/2024 6:47 AM EDT 12/04/2024 8:37 AM EDT Eusebio Sprague MD LAB BLOOD ORDERABLES Final Resul t [facility] ([facility] [address] [place] [address], documented in this encounter Visit Diagnoses Diagnosis Unspecified atrial fibrillation (CMS/HCC V24, CMS/HCC V28) documented in this encounter Care Teams Hooker Machine Tender Relationship Specialty Start Date End Date Eusebio Sprague MD [address] [place] [address] [address] [place] [address] PCP - General Geriatric Medicine 11/05/24 documented as of this encounter
--- OUTSIDE RECORDS SUMMARY | 2024-12-12 13:33 | XMS_ITS | Clinical Summary ---
Author Organization [address] Address [address] [place] [address] Phone Care Team Providers Care Brass Buffer Name Role Phone Eusebio Sprauge MD Primary Care Provider [phone] Encounters Date Type Department Care Team Description 12/12/2024 Lab Requisition [facility] [address] [place] [phone] Eusebio Sprague MD Unspecified atrial fibrillation (CMS/HCC V24, CMS/HCC V28); Essential (primary) hypertension 12/11/2024 Lab Requisition [facility] [address] [place] [phone] Eusebio Sprague MD Frequency of micturition 12/10/2024 Lab Requisition [facility] [address] [place] [phone] Eusebio Sprague MD Unspecified atrial fibrillation (CMS/HCC V24, CMS/HCC V28) 12/05/2024 Lab Requisition [facility] [address] [place] [phone] Eusebio Sprague MD Unspecified atrial fibrillation (CMS/HCC V24, CMS/HCC V28); Essential (primary) hypertension 12/03/2024 Lab Requisition [facility] [address] [place] [phone] Eusebio Sprague MD Unspecified atrial fibrillation (CMS/HCC V24, CMS/HCC V28) 11/29/2024 Lab Requisition [facility] [address] [place] [phone] Eusebio Sprague MD Unspecified atrial fibrillation (CMS/HCC V24, CMS/HCC V28); Essential (primary) hypertension 11/26/2024 Lab Requisition [facility] [address] [place] [phone] Eusebio Sprague MD Unspecified atrial fibrillation ([facility]/HCC V24, CMS/HCC V28) 11/24/2024 Lab Requisition [facility] [address] [place] [phone] Reena Salmon PA Heart failure, unspecified ([facility]/HCC V24, CMS/HCC V28); Vitamin D deficiency, unspecified; Hypothyroidism, unspecified; Unspecified atrial fibrillation (CMS/HCC V24, CMS/HCC V28) 11/15/2024 Lab Requisition [facility] [address] [place] [phone] Eusebio Sprague MD Unspecified atrial fibrillation ([facility]/HCC V24, CMS/HCC V28); Heart failure, unspecified ([facility]/HCC V24, CMS/HCC V28) 11/12/2024 Lab Requisition [facility] [address] [place] [phone] Eusebio Sprague MD Unspecified atrial fibrillation ([facility]/HCC V24, CMS/HCC V28) 11/08/2024 Lab Requisition [facility] [address] [place] [phone] Eusebio Sprague MD Unspecified atrial fibrillation (CMS/HCC V24, CMS/HCC V28); Heart failure, unspecified (CMS/HCC V24, CMS/HCC V28) 11/05/2024 Lab Requisition [facility] [address] [place] [phone] Eusebio Sprague MD Unspecified atrial fibrillation (CMS/HCC V24, CMS/HCC V28) 11/05/2024 Lab Requisition [facility] [address] [facility] [place] [phone] Eusebio Sprague MD Unspecified atrial fibrillation (CMS/HCC V24, CMS/HCC V28); Nontoxic single thyroid nodule; Essential (primary) hypertension; Heart failure, unspecified (CMS/HCC V24, CMS/HCC V28); Vitamin D deficiency, unspecified; Diverticulum of bladder from Last 3 Months Social History Tobacco Use Types Packs/Day Years Used Date Smoking Tobacco: Never Assessed Comments Unknown Sex and Gender Information Value Date Recorded Sex Assigned at Not on file Legal Sex Female 11:23 PM EST Gender Identity Not on file Sexual Orientation Not on file Plan of Treatment Health Maintenance Due Date Last Done Comments Zoster Vaccines (1 of 2) 12/31/1985 RSV Immunization Adult Patients (1 - 1-dose 75+ series) 12/31/2010 Pneumococcal Vaccine: 50+ Years (2 of 2 - PCV) 03/13/2018 03/13/2017 Depression Screening 04/16/2024 COVID-19 Vaccine ( season) 2024 02/01/2024, 03/22/2023, 01/12/2021, Additional history exists Cholesterol Screening (Lipid Panel) 11/06/2024 Falls Risk Assessment 11/06/2024 Medicare Annual Wellness Visit 11/06/2024 Osteoporosis Screening (Bone Density Screening) 11/06/2024 Social Influencers of Health Screening 11/06/2024 Influenza Vaccine (#1) 2024 , 01/24/2023, 02/03/2022, Additional history exists Hypertension/CHF/CAD Annual BMP Blood Test 12/08/2025 12/08/2024, 12/01/2024, 11/24/2024, Additional history exists DTaP,Tdap,and Td Vaccines (2 - Td or Tdap) 08/27/2027 08/26/2017 HIB Vaccines Aged Out No longer eligi ble based on patient's age to complete this topic HPV Vaccines Aged Out No longer eligi ble based on patient's age to complete this topic Hepatitis A Vaccines Aged Out No long er eligible based on patient's age to complete this topic Hepatitis B Vaccines Aged Out No long er eligible based on patient's age to complete this topic IPV Vaccines Aged Out No longer eligi ble based on patient's age to complete this topic MMR Vaccines Aged Out No longer eligi ble based on patient's age to complete this topic Meningococcal ACWY Vaccine Aged Out N o longer eligible based on patient's age to complete this topic Meningococcal B Vaccine Aged Out No l onger eligible based on patient's age to complete this topic RSV Immunization Patients Under 20 months Aged Out No longer eligible based on patient's age to complete this topic Varicella Vaccines Aged Out No longer eligible based on patient's age to complete this topic Procedures Procedure Name Priority Date/Time Associated Diagnosis Comments PROTHROMBIN TIME WITH INR Routine 12/11/2024 6:52 AM EDT Unspecified atrial fibrillation (CMS/HCC V24, CMS/HCC V28) URINALYSIS WITH REFLEX MICROSCOPIC Routine 12/10/2024 4:30 AM EDT Frequency of micturition URINALYSIS WITH REFLEX MICROSCOPIC Routine 12/10/2024 4:30 AM EDT Frequency of micturition CULTURE URINE Routine 12/10/2024 4:30 AM EDT Frequency of micturition BASIC METABOLIC PANEL Routine 12/08/2024 6:23 AM EDT Unspecified atrial fibrillation (CMS/HCC V24, CMS/HCC V28) Essential (primary) hypertension COMPLETE BLOOD COUNT Routine 12/08/2024 6:23 AM EDT Unspecified atrial fibrillation (CMS/HCC V24, CMS/HCC V28) Essential (primary) hypertension PROTHROMBIN TIME WITH INR Routine 12/08/2024 6:23 AM EDT Unspecified atrial fibrillation (CMS/HCC V24, CMS/HCC V28) Essential (primary) hypertension PROTHROMBIN TIME WITH INR Routine 12/04/2024 6:47 AM EDT Unspecified atrial fibrillation (CMS/HCC V24, CMS/HCC V28) BASIC METABOLIC PANEL Routine 12/01/2024 6:20 AM EDT Unspecified atrial fibrillation (CMS/HCC V24, CMS/HCC V28) Essential (primary) hypertension COMPLETE BLOOD COUNT Routine 12/01/2024 6:20 AM EDT Unspecified atrial fibrillation (CMS/HCC V24, CMS/HCC V28) Essential (primary) hypertension PROTHROMBIN TIME WITH INR Routine 12/01/2024 6:20 AM EDT Unspecified atrial fibrillation (CMS/HCC V24, CMS/HCC V28) Essential (primary) hypertension PROTHROMBIN TIME WITH INR Routine 11/27/2024 6:40 AM EDT Unspecified atrial fibrillation (CMS/HCC V24, CMS/HCC V28) PROTHROMBIN TIME WITH INR Routine 11/24/2024 6:19 AM EDT Heart failure, unspecified (CMS/HCC V24, CMS/HCC V28) Vitamin D deficiency, unspecified Hypothyroidism, unspecified Unspecified atrial fibrillation (CMS/HCC V24, CMS/HCC V28) MAGNESIUM Routine 11/24/2024 6:19 AM EDT Heart failure, unspecified (CMS/HCC V24, CMS/HCC V28) Vitamin D deficiency, unspecified Hypothyroidism, unspecified Unspecified atrial fibrillation (CMS/HCC V24, CMS/HCC V28) VITAMIN D 25 HYDROXY Routine 11/24/2024 6:19 AM EDT Heart failure, unspecified (CMS/HCC V24, CMS/HCC V28) Vitamin D deficiency, unspecified Hypothyroidism, unspecified Unspecified atrial fibrillation (CMS/HCC V24, CMS/HCC V28) THYROID STIMULATING HORMONE Routine 11/24/2024 6:19 AM EDT Heart failure, unspecified (CMS/HCC V24, CMS/HCC V28) Vitamin D deficiency, unspecified Hypothyroidism, unspecified Unspecified atrial fibrillation (CMS/HCC V24, CMS/HCC V28) VITAMIN B12 AND FOLATE Routine 11/24/2024 6:19 AM EDT Heart failure, unspecified (CMS/HCC V24, CMS/HCC V28) Vitamin D deficiency, unspecified Hypothyroidism, unspecified Unspecified atrial fibrillation (CMS/HCC V24, CMS/HCC V28) COMPREHENSIVE METABOLIC PANEL Routine 11/24/2024 6:19 AM EDT Heart failure, unspecified (CMS/HCC V24, CMS/HCC V28) Vitamin D deficiency, unspecified Hypothyroidism, unspecified Unspecified atrial fibrillation (CMS/HCC V24, CMS/HCC V28) COMPLETE BLOOD COUNT Routine 11/24/2024 6:19 AM EDT Heart failure, unspecified (CMS/HCC V24, CMS/HCC V28) Vitamin D deficiency, unspecified Hypothyroidism, unspecified Unspecified atrial fibrillation (CMS/HCC V24, CMS/HCC V28) BASIC METABOLIC PANEL Routine 11/10/2024 6:08 AM EDT Unspecified atrial fibrillation (CMS/HCC V24, CMS/HCC V28) Heart failure, unspecified (CMS/HCC V24, CMS/HCC V28) COMPLETE BLOOD COUNT Routine 11/10/2024 6:08 AM EDT Unspecified atrial fibrillation (CMS/HCC V24, CMS/HCC V28) Heart failure, unspecified (CMS/HCC V24, CMS/HCC V28) PROTHROMBIN TIME WITH INR Routine 11/10/2024 6:08 AM EDT Unspecified atrial fibrillation (CMS/HCC V24, CMS/HCC V28) Heart failure, unspecified (CMS/HCC V24, CMS/HCC V28) PROTHROMBIN TIME WITH INR Routine 11/06/2024 7:06 AM EDT Unspecified atrial fibrillation (CMS/HCC V24, CMS/HCC V28) MAGNESIUM Routine 11/05/2024 6:51 AM EDT Unspecified [...] D deficiency, unspecified Diverticulum of bladder VITAMIN D 25 HYDROXY Routine 11/05/2024 6:51 [...] Vitamin D deficiency, unspecified Diverticulum of bladder from Last 3 Months Results * (ABNORMAL) Prothrombin time with INR (12/11/2024 6:52 AM EDT) Only the most recent of9 resultswithin the time period is included. [facility] Protime 27.7(H) 10.6 - 13.9 sec LAB COAGULATION METHOD 12/11/2024 10:10 AM EDT [facility] INR 2.2 LAB COAGULATION METHOD 12/11/2024 10:10 AM EDT [facility] Blood Venous blood specimen / Unknown Venipuncture / Unknown 12/11/2024 6:52 AM EDT 12/11/2024 9:39 AM EDT us Eusebio Sprague MD LAB BLOOD ORDERABLES Final Resul t [facility] [address] [place] [address], * (ABNORMAL) Urinalysis with reflex microscopic (12/10/2024 4:30 AM EDT) [facility] Specific [place] Urine 1.014 1.003 - 1.030 LAB URINALYSIS - AUTOMATED METHOD 12/11/2024 10:24 AM EDT [facility] pH, Urine 5.5 5.0 - 8.0 pH LAB URINALYSIS - AUTOMATED METHOD 12/11/2024 10:24 AM EDT [facility] Leukocytes, Urine Large(A) Negative LAB URINALYSIS - AUTOMATED METHOD 12/11/2024 10:24 AM EDT [facility] Nitrite, Urine Negative Negative LAB URINALYSIS - AUTOMATED METHOD 12/11/2024 10:24 AM [facility] Protein, Urine Trace <=Trace mg/dL LAB URINALYSIS - AUTOMATED METHOD 12/11/2024 10:24 AM [facility] Glucose, Urine Negative Negative mg/dL LAB URINALYSIS - AUTOMATED METHOD 12/11/2024 10:24 AM [facility] Ketones, Urine Negative Negative mg/dL LAB URINALYSIS - AUTOMATED METHOD 12/11/2024 10:24 AM [facility] Urobilinogen, Urine 0.2 0.2 - 1.0 mg/dL LAB URINALYSIS - AUTOMATED METHOD 12/11/2024 10:24 AM [facility] Bilirubin, Urine Negative Negative LAB URINALYSIS - AUTOMATED METHOD 12/11/2024 10:24 AM [facility] Blood, Urine Small(A) Negative LAB URINALYSIS - AUTOMATED METHOD 12/11/2024 10:24 AM [facility] RBC, Urine 7.1(H) 0 - 4 /HPF LAB URINALYSIS - AUTOMATED METHOD 12/11/2024 10:24 AM [facility] WBC, Urine 990.7(H) 0 - 4 /HPF LAB URINALYSIS - AUTOMATED METHOD 12/11/2024 10:24 AM [facility] Squamous Epithelial, Urine 41 0 - 60 /LPF LAB URINALYSIS - AUTOMATED METHOD 12/11/2024 10:24 AM [facility] Bacteria, Urine Many(A) Negative /HPF LAB URINALYSIS - AUTOMATED METHOD 12/11/2024 10:24 AM [facility] Hyaline Casts, Urine 2.4 0 - 3 /LPF LAB URINALYSIS - AUTOMATED METHOD 12/11/2024 10:24 AM [facility] Urine Urine specimen obtained by clean catch procedure / Unknown 12/10/2024 4:30 AM EDT 12/11/2024 9:17 AM EDT us Eusebio Sprague MD LAB URINE ORDERABLES Final Resul t [facility] [address] [place] [address], [place] [phone] * (ABNORMAL) Complete blood count (12/08/2024 6:23 AM EDT) Only the most recent of5 resultswithin the time period is included. WBC 5.6 4.8 - 10.8 K/mcL LAB HEMETOLOGY METHOD 12/08/2024 11:03 AM EDT [facility] RBC 3.80 3.80 - 4.80 M/mcL LAB HEMETOLOGY METHOD 12/08/2024 11:03 AM [facility] Hemoglobin 11.8 11.5 - 16.0 g/dL LAB HEMETOLOGY METHOD 12/08/2024 11:03 AM [facility] Hematocrit 37.4 35.0 - 47.0 % LAB HEMETOLOGY METHOD 12/08/2024 11:03 AM T [facility] MCV 99.2(H) 79.0 - 98.0 FL LAB HEMETOLOGY METHOD [facility] MCH 31.3 27.0 - 32.0 pcg LAB HEMETOLOGY METHOD 12/08/2024 11:03 AM EDT [facility] MCHC 31.6(L) 32.0 - 37.0 g/dL LAB HEMETOLOGY METHOD 12/08/2024 11:03 AM [facility] RDW 14.4 11.0 - 15.0 % LAB HEMETOLOGY METHOD 12/08/2024 11:03 AM [facility] Platelets 176 130 - 400 K/mcL LAB HEMETOLOGY METHOD 12/08/2024 11:03 AM EDT [facility] MPV 10.0 7.0 - 11.0 FL LAB HEMETOLOGY METHOD 12/08/2024 11:03 AM EDT [facility] NRBC 0.0 <1.0 % LAB HEMETOLOGY METHOD 12/08/2024 11:03 AM EDT [facility] NRBC Absolute 0.00 <0.10 K/mcL LAB HEMETOLOGY METHOD 12/08/2024 11:03 AM EDT [facility] Blood Venous blood specimen / Unknown Venipuncture / Unknown 12/08/2024 6:23 AM EDT 12/08/2024 10:07 AM EDT us Eusebio Sprague MD LAB BLOOD ORDERABLES Final Resul t [facility] [address] [place] [address], * (ABNORMAL) Basic metabolic panel (12/08/2024 6:23 AM EDT) Only the most recent of3 resultswithin the time period is included. Sodium 141 133 - 145 mmol/L LAB CHEMISTRY METHOD 12/08/2024 1:54 PM [facility] Potassium 5.1 3.5 - 5.5 mmol/L LAB CHEMISTRY METHOD 12/08/2024 1:54 PM [facility] Chloride 111(H) 96 - 110 mmol/L LAB CHEMISTRY METHOD 12/08/2024 1:54 PM [facility] CO2 23 21 - 32 mmol/L LAB CHEMISTRY METHOD 12/08/2024 1:54 PM [facility] Anion Gap 7 3 - 11 LAB CHEMISTRY METHOD 12/08/2024 1:54 PM [facility] Glucose 68(L) 70 - 100 mg/dL LAB CHEMISTRY METHOD 12/08/2024 1:54 PM EDT [facility] BUN 34(H) 5 - 25 mg/dL LAB CHEMISTRY METHOD 12/08/2024 1:54 PM EDT [facility] Creatinine 1.55(H) 0.50 - 1.10 mg/dL LAB CHEMISTRY METHOD 12/08/2024 1:54 PM EDT [facility] eGFR 32(L) >=60 mL/min/1. 73m2 LAB CHEMISTRY METHOD 12/08/2024 1:54 PM EDT [facility] Comment:Calculation based on the Chronic Kidney Disease Epidemiology Collaboration (CKD-EPI) equation refit without adjustment for race. BUN/Creatinine Ratio 21.9 LAB CHEMISTRY METHOD 12/08/2024 1:54 PM EDT [facility] Calcium 8.8 8.5 - 10.5 mg/dL LAB CHEMISTRY METHOD 12/08/2024 1:54 PM EDT [facility] Blood Venous blood specimen / Unknown Venipuncture / Unknown 12/08/2024 6:23 AM EDT 12/08/2024 10:07 AM EDT us Eusebio Sprague MD LAB BLOOD ORDERABLES Final Resul t [facility] [address] [place] [address], * Vitamin B12 and folate (11/24/2024 6:19 AM EDT) Vitamin B-12 470 250 - 900 pcg/mL LAB CHEMISTRY METHOD 11/24/2024 11:28 AM EDT [facility] Folate 6.3 2.8 - 17.0 ng/ml LAB CHEMISTRY METHOD 11/24/2024 11:28 AM EDT [facility] Blood Venous blood specimen / Unknown Venipuncture / Unknown 11/24/2024 6:19 AM EDT 11/24/2024 10:10 AM EDT us Reena FOSTER LAB BLOOD ORDERABLES Final Resu lt Performing Organization Address City/[facility]/ZIP Co de Phone Number [facility] [address] [place] [address], [place] [phone] * (ABNORMAL) Vitamin D 25 hydroxy (11/24/2024 6:19 AM EDT) Only the most recent of2 resultswithin the time period is included. Vit D, 25-Hydroxy 29.0(L) 30.0 - 80.0 ng/mL LAB CHEMISTRY METHOD 11/24/2024 11:59 AM EDT [facility] Blood Venous blood specimen / Unknown Venipuncture / Unknown 11/24/2024 6:19 AM EDT 11/24/2024 10:10 AM EDT us Reena FOSTER LAB BLOOD ORDERABLES Final Resu lt Performing Organization Address [facility] Co de Phone Number [facility] [address] [place] [address], [place] [phone] * (ABNORMAL) Thyroid stimulating hormone (11/24/2024 6:19 AM EDT) Only the most recent of2 resultswithin the time period is included. TSH 4.43(H) 0.40 - 4.00 mcIU/mL LAB CHEMISTRY METHOD 11/24/2024 11:59 AM EDT [facility] Blood Venous blood specimen / Unknown Venipuncture / Unknown 11/24/2024 6:19 AM EDT 11/24/2024 10:10 AM EDT us Reena FOSTER LAB BLOOD ORDERABLES Final Resu lt Performing Organization Address City/[facility]/ZIP Co de Phone Number [facility] [address] [place] [address], [place] [phone] * Magnesium (11/24/2024 6:19 AM EDT) Only the most recent of2 resultswithin the time period is included. [facility] Magnesium 2.4 1.9 - 2.6 mg/dL LAB CHEMISTRY METHOD 11/24/2024 11:02 AM [facility] Blood Venous blood specimen / Unknown Venipuncture / Unknown 11/24/2024 6:19 AM EDT 11/24/2024 10:10 AM EDT us Reena FOSTER LAB BLOOD ORDERABLES Final Resu lt [facility] [address] [place] [address], * (ABNORMAL) Comprehensive metabolic panel (11/24/2024 6:19 AM EDT) Only the most recent of2 resultswithin the time period is included. [facility] Sodium 139 133 - 145 mmol/L LAB CHEMISTRY METHOD 11/24/2024 11:28 AM [facility] Potassium 5.1 3.5 - 5.5 mmol/L LAB CHEMISTRY METHOD 11/24/2024 11:28 AM [facility] Chloride 108 96 - 110 mmol/L LAB CHEMISTRY METHOD 11/24/2024 11:28 AM [facility] CO2 25 21 - 32 mmol/L LAB CHEMISTRY METHOD 11/24/2024 11:28 AM [facility] Anion Gap 6 3 - 11 LAB CHEMISTRY METHOD 11/24/2024 11:28 AM [facility] Glucose 66(L) 70 - 100 mg/dL LAB CHEMISTRY METHOD 11/24/2024 11:28 AM [facility] BUN 45(H) 5 - 25 mg/dL LAB CHEMISTRY METHOD 11/24/2024 11:28 AM [facility] Creatinine 1.48(H) 0.50 - 1.10 mg/dL LAB CHEMISTRY METHOD 11/24/2024 11:28 AM [facility] eGFR 34(L) >=60 mL/min/1. 73m2 LAB CHEMISTRY METHOD 11/24/2024 11:28 AM [facility] Comment:Calculation based on the Chronic Kidney Disease Epidemiology Collaboration (CKD-EPI) equation refit without adjustment for race. BUN/Creatinine Ratio 30.4 LAB CHEMISTRY METHOD 11/24/2024 11:28 AM [facility] Calcium 8.1(L) 8.5 - 10.5 mg/dL LAB CHEMISTRY METHOD 11/24/2024 11:28 AM [facility] AST (SGOT) 51(H) 10 - 42 unit/L LAB CHEMISTRY METHOD 11/24/2024 11:28 AM [facility] ALT (SGPT) 58 10 - 60 unit/L LAB CHEMISTRY METHOD 11/24/2024 11:28 AM [facility] Alkaline Phosphatase 119 42 - 121 unit/L LAB CHEMISTRY METHOD 11/24/2024 11:28 AM [facility] Total Protein 4.8(L) 6.0 - 8.0 g/dL LAB CHEMISTRY METHOD 11/24/2024 11:28 AM [facility] Albumin 2.3(L) 3.2 - 5.0 g/dL LAB CHEMISTRY METHOD 11/24/2024 11:28 AM [facility] Total Bilirubin 0.3 0.0 - 1.4 mg/dL LAB CHEMISTRY METHOD 11/24/2024 11:28 AM [facility] Blood Venous blood specimen / Unknown Venipuncture / Unknown 11/24/2024 6:19 AM EDT 11/24/2024 10:10 AM EDT us Reena FOSTER LAB BLOOD ORDERABLES Final Resu lt [facility] [address] [place] [address], [place] [phone] * Folate (11/05/2024 6:51 AM EDT) [facility] Folate 8.7 2.8 - 17.0 ng/ml LAB CHEMISTRY METHOD 11/05/2024 12:33 PM EDT [facility] Blood Venous blood specimen / Unknown Venipuncture / Unknown 11/05/2024 6:51 AM EDT 11/05/2024 10:39 AM EDT us Eusebio Sprague MD LAB BLOOD ORDERABLES Final Resul t Performing Organization Address City/[facility] Co de Phone Number [facility] [address] [place] [address], [place] [phone] * Vitamin B12 (11/05/2024 6:51 AM EDT) [facility] Vitamin B-12 387 250 - 900 pcg/mL LAB CHEMISTRY METHOD 11/05/2024 12:33 PM EDT [facility] Blood Venous blood specimen / Unknown Venipuncture / Unknown 11/05/2024 6:51 AM EDT 11/05/2024 10:39 AM EDT us Eusebio Sprague MD LAB BLOOD ORDERABLES Final Resul t [facility] [address] [place] [address], [place] [phone] from Last [address] [place] [phone] [employer] Care Teams Brass Buffer Relationship Specialty Start Date End Date Eusebio Sprague MD [address] [place] [address] [address] [place] [address] PCP - General Geriatric Medicine 11/05/24
--- OUTSIDE RECORDS SUMMARY | 2024-12-12 13:33 | XMS_ITS | Encounter Summary ---
Author Organization [employer] Address [address] [place] [address] Care Team Providers Care Steward/Stewardess Economy Class Name Role Phone Eusebio Sprague MD Primary Care Provider Encounter Details Date Type Department Care Team (Late st Contact Info) Description 11/29/2024 Lab Requisition [facility] - Main Lab [address] [place] [address] Eusebio Sprague MD [address] [place], [place] [phone] Unspecified atrial fibrillation (CMS/HCC V24, CMS/HCC V28); [...] Diagnosis Comments PROTHROMBIN TIME WITH INR Routine 12/01/2024 6:20 AM EDT Unspecified atrial fibrillation (CMS/HCC V24, CMS/HCC V28) Essential (primary) hypertension COMPLETE BLOOD COUNT Routine 12/01/2024 6:20 AM EDT Unspecified atrial fibrillation (CMS/HCC V24, CMS/HCC V28) Essential (primary) hypertension BASIC METABOLIC PANEL Routine 12/01/2024 6:20 AM EDT Unspecified atrial fibrillation (CMS/HCC V24, CMS/HCC V28) Essential (primary) hypertension documented in this encounter Results * (ABNORMAL) Basic metabolic panel (12/01/2024 6:20 AM EDT) Sodium 142 133 - 145 mmol/L LAB CHEMISTRY METHOD 12/01/2024 12:06 PM [facility] Potassium 4.7 3.5 - 5.5 mmol/L LAB CHEMISTRY METHOD 12/01/2024 12:06 PM [facility] Chloride 113(H) 96 - 110 mmol/L LAB CHEMISTRY METHOD 12/01/2024 12:06 PM [facility] CO2 25 21 - 32 mmol/L LAB CHEMISTRY METHOD 12/01/2024 12:06 PM [facility] Anion Gap 4 3 - 11 LAB CHEMISTRY METHOD 12/01/2024 12:06 PM [facility] Glucose 71 70 - 100 mg/dL LAB CHEMISTRY METHOD 12/01/2024 12:06 PM [facility] BUN 38(H) 5 - 25 mg/dL LAB CHEMISTRY METHOD 12/01/2024 12:06 PM [facility] Creatinine 1.61(H) 0.50 - 1.10 mg/dL LAB CHEMISTRY METHOD 12/01/2024 12:06 PM [facility] eGFR 31(L) >=60 mL/min/1. 73m2 LAB CHEMISTRY METHOD 12/01/2024 12:06 PM [facility] Comment:Calculation based on the Chronic Kidney Disease Epidemiology Collaboration (CKD-EPI) equation refit without adjustment for race. BUN/Creatinine Ratio 23.6 LAB CHEMISTRY METHOD 12/01/2024 12:06 PM [facility] Calcium 8.8 8.5 - 10.5 mg/dL LAB CHEMISTRY METHOD 12/01/2024 12:06 PM [facility] Blood Venous blood specimen / Unknown Venipuncture / Unknown 12/01/2024 6:20 AM EDT 12/01/2024 9:55 AM EDT us Eusebio Sprague MD LAB BLOOD ORDERABLES Final Resul t [facility] [address] [place] [address], * (ABNORMAL) Complete blood count (12/01/2024 6:20 AM EDT) WBC 4.6(L) 4.8 - 10.8 K/mcL LAB HEMETOLOGY METHOD 12/01/2024 11:37 AM EDT [facility] RBC 3.50(L) 3.80 - 4.80 M/mcL LAB HEMETOLOGY METHOD 12/01/2024 11:37 AM EDT [facility] Hemoglobin 10.9(L) 11.5 - 16.0 g/dL LAB HEMETOLOGY METHOD 12/01/2024 11:37 AM EDT [facility] Hematocrit 35.0 35.0 - 47.0 % LAB HEMETOLOGY METHOD 12/01/2024 11:37 AM EDT [facility] MCV 100.0(H) 79.0 - 98.0 FL LAB HEMETOLOGY METHOD 12/01/2024 11:37 AM EDT [facility] MCH 31.1 27.0 - 32.0 pcg LAB HEMETOLOGY METHOD 12/01/2024 11:37 AM EDT [facility] MCHC 31.1(L) 32.0 - 37.0 g/dL LAB HEMETOLOGY METHOD 12/01/2024 11:37 AM EDT [facility] RDW 14.2 11.0 - 15.0 % LAB HEMETOLOGY [facility] Platelets 173 130 - 400 K/mcL LAB HEMETOLOGY METHOD 12/01/2024 11:37 AM EDT [facility] MPV 9.7 7.0 - 11.0 FL LAB HEMETOLOGY METHOD 12/01/2024 11:37 AM EDT [facility] NRBC 0.0 <1.0 % LAB HEMETOLOGY METHOD 12/01/2024 11:37 AM EDT [facility] NRBC Absolute 0.00 <0.10 K/mcL LAB HEMETOLOGY METHOD 12/01/2024 11:37 AM EDT [facility] Blood Venous blood specimen / Unknown Venipuncture / Unknown 12/01/2024 6:20 AM EDT 12/01/2024 9:55 AM EDT Eusebio Sprague MD LAB BLOOD ORDERABLES Final Resul t Performing Organization Address [facility] Co de Phone Number [facility] [address] [place] [address], [place] [phone] * (ABNORMAL) Prothrombin time with INR (12/01/2024 6:20 AM EDT) Protime 19.3(H) 10.6 - 13.9 sec LAB COAGULATION METHOD 12/01/2024 11:46 AM EDT [facility] INR 1.5 LAB COAGULATION METHOD 12/01/2024 11:46 AM EDT [facility] Blood Venous blood specimen / Unknown Venipuncture / Unknown 12/01/2024 6:20 AM EDT 12/01/2024 9:55 AM EDT Eusebio Sprague MD LAB BLOOD ORDERABLES Final Resul t Performing Organization Address City/[facility]/ZIP Co de Phone Number [facility] [address] [place] [address], [place] [phone] documented in this encounter Visit Diagnoses Diagnosis Unspecified atrial fibrillation (CMS/HCC V24, CMS/HCC V28) Essential (primary) hypertension Unspecified essential hypertension documented in this encounter Care Teams Steward/Stewardess Economy Class Relationship Specialty Start Date End Date Eusebio Sprague MD [address] [place] [address] [address] [place] [address] PCP - General Geriatric Medicine 11/05/24 documented as of this encounter
--- OUTSIDE RECORDS SUMMARY | 2024-12-12 13:33 | XMS_ITS | Encounter Summary ---
Author Organization [employer] Address [address] [place] [address] Care Team Providers Care Jewel Setter Name Role Phone Eusebio Sprague MD Primary Care Provider [phone] Encounter Details Date Type Department Care Team (Late st Contact Info) Description 12/12/2024 Lab Requisition [facility] - Main Lab [address] [facility] [place] [address] Eusebio Sprague MD [address] [place], [place] [phone] Unspecified atrial fibrillation (CMS/HCC V24, CMS/HCC V28); Essential (primary) hypertension Social History Tobacco Use Types Packs/Day Years Used Date Smoking Tobacco: Never Assessed Comments Unknown Sex and Gender Information Value Date Recorded Sex Assigned at Not on file Legal Sex Female 11:23 PM EST Gender Identity Not on file Sexual Orientation Not on file documented as of this encounter Plan of Treatment Scheduled Orders Name Type Priority Associated Diagnoses Orde r Schedule Prothrombin time with INR Lab Routine Unspecified atrial fibrillation (CMS/HCC V24, CMS/HCC V28) Essential (primary) hypertension Ordered: 12/12/2024 Complete blood count Lab Routine Unspecified atrial fibrillation (CMS/HCC V24, CMS/HCC V28) Essential (primary) hypertension Ordered: 12/12/2024 Basic metabolic panel Lab Routine Unspecified atrial fibrillation (CMS/HCC V24, CMS/HCC V28) Essential (primary) hypertension Ordered: 12/12/2024 documented as of this encounter Visit Diagnoses Diagnosis Unspecified atrial fibrillation (CMS/HCC V24, CMS/HCC V28) Essential (primary) hypertension Unspecified essential hypertension documented in this encounter Care Teams Jewel Setter Relationship Specialty Start Date End Date Eusebio Sprague MD [address] [place] [address] PCP - General Geriatric Medicine 11/05/24 documented as of this encounter
--- OUTSIDE RECORDS SUMMARY | 2024-12-12 13:33 | XMS_ITS | Encounter Summary ---
Author Organization [employer] Address [address] [place] [address] Care Team Providers Care Caster Operator Name Role Phone Eusebio Sprague MD Primary Care Provider [phone] Encounter Details Date Type Department Care Team (Late st Contact Info) Description 11/15/2024 Lab Requisition [facility] - Main Lab [address] [place] [address] Eusebio Sprague MD [address] [place], [place] [phone] Unspecified atrial fibrillation (CMS/HCC V24, CMS/HCC V28); Heart failure, unspecified (CMS/HCC V24, CMS/HCC V28) Social History Tobacco [...] (CMS/HCC V24, CMS/HCC V28) Heart failure, unspecified documented in this encounter Care Teams Caster Operator Relationship Specialty Start Date End Date Eusebio Sprague MD [address] [place], [place] [phone] PCP - General Geriatric Medicine 11/05/24 documented as of this encounter
--- OUTSIDE RECORDS SUMMARY | 2024-12-12 13:33 | XMS_ITS | Encounter Summary ---
Author Organization [employer] Address [address] [place] [address] Care Team Providers Care Quill Stripper Name Role Phone Eusebio Sprague MD Primary Care Provider [phone] Encounter Details Date Type Department Care Team (Late st Contact Info) Description 11/26/2024 Lab Requisition [facility] - Main Lab [address] [facility] [place] [address] Eusebio Sprague MD [address] [place], [place] [phone] Unspecified atrial fibrillation (CMS/HCC V24, CMS/HCC V28) [...] Diagnosis Comments PROTHROMBIN TIME WITH INR Routine 11/27/2024 6:40 AM EDT Unspecified atrial fibrillation (CMS/HCC V24, CMS/HCC V28) documented in this encounter Results * (ABNORMAL) Prothrombin time with INR (11/27/2024 6:40 AM EDT) Protime 25.0(H) 10.6 - 13.9 sec LAB COAGULATION METHOD 11/27/2024 8:56 AM [facility] INR 2.0 LAB COAGULATION METHOD 11/27/2024 8:56 AM [facility] Blood Venous blood specimen / Unknown Venipuncture / Unknown 11/27/2024 6:40 AM EDT 11/27/2024 8:33 AM EDT Eusebio Sprague MD LAB BLOOD ORDERABLES Final Resul t [facility] ([facility]) [facility] [address] [place] [address], documented in this encounter Visit Diagnoses Diagnosis Unspecified atrial fibrillation (CMS/HCC V24, CMS/HCC V28) documented in this encounter Care Teams Quill Stripper Relationship Specialty Start Date End Date Eusebio Sprague MD [address] [place] [address] [address] [place] [address] PCP - General Geriatric Medicine 11/05/24 documented as of this encounter
--- OUTSIDE RECORDS SUMMARY | 2024-12-12 13:33 | XMS_ITS | Encounter Summary ---
Author Organization [employer] Address [address] [place] [address] Care Team Providers Care Smoke Jumper Name Role Phone Eusebio Sprague MD Primary Care Provider [phone] Encounter Details Date Type Department Care Team (Late st Contact Info) Description 11/08/2024 Lab Requisition [facility] - Main Lab [address] [place] [address] Eusebio Sprague MD [address] [place], [place] [phone] Unspecified atrial fibrillation (CMS/HCC V24, CMS/HCC V28); [...] Diagnosis Comments PROTHROMBIN TIME WITH INR Routine 11/10/2024 6:08 AM EDT Unspecified atrial fibrillation (CMS/HCC V24, CMS/HCC V28) Heart failure, unspecified (CMS/HCC V24, CMS/HCC V28) COMPLETE BLOOD COUNT Routine 11/10/2024 6:08 AM EDT Unspecified atrial fibrillation (CMS/HCC V24, CMS/HCC V28) Heart failure, unspecified (CMS/HCC V24, CMS/HCC V28) BASIC METABOLIC PANEL Routine 11/10/2024 6:08 AM EDT Unspecified atrial fibrillation (CMS/HCC V24, CMS/HCC V28) Heart failure, unspecified ([facility] V24, [facility] V28) documented in this encounter Results * (ABNORMAL) Basic metabolic panel (11/10/2024 6:08 AM EDT) Sodium 139 133 - 145 mmol/L LAB CHEMISTRY METHOD 11/10/2024 1:25 PM [facility] Potassium 4.6 3.5 - 5.5 mmol/L LAB CHEMISTRY METHOD 11/10/2024 1:25 PM [facility] Chloride 111(H) 96 - 110 mmol/L LAB CHEMISTRY METHOD 11/10/2024 1:25 PM [facility] CO2 22 21 - 32 mmol/L LAB CHEMISTRY METHOD 11/10/2024 1:25 PM [facility] Anion Gap 6 3 - 11 LAB CHEMISTRY METHOD 11/10/2024 1:25 PM [facility] Glucose 64(L) 70 - 100 mg/dL LAB CHEMISTRY METHOD 11/10/2024 1:25 PM [facility] BUN 44(H) 5 - 25 mg/dL LAB CHEMISTRY METHOD 11/10/2024 1:25 PM [facility] Creatinine 1.53(H) 0.50 - 1.10 mg/dL LAB CHEMISTRY METHOD 11/10/2024 1:25 PM [facility] eGFR 33(L) >=60 mL/min/1. 73m2 LAB CHEMISTRY METHOD 11/10/2024 1:25 PM [facility] Comment:Calculation based on the Chronic Kidney Disease Epidemiology Collaboration (CKD-EPI) equation refit without adjustment for race. BUN/Creatinine Ratio 28.8 LAB CHEMISTRY METHOD 11/10/2024 1:25 PM [facility] Calcium 8.2(L) 8.5 - 10.5 mg/dL LAB CHEMISTRY METHOD 11/10/2024 1:25 PM [facility] Blood Venous blood specimen / Unknown Venipuncture / Unknown 11/10/2024 6:08 AM EDT 11/10/2024 11:46 AM EDT Eusebio Sprague MD LAB BLOOD ORDERABLES Final Resul t [facility] [address] [place] [address], * (ABNORMAL) Complete blood count (11/10/2024 6:08 AM EDT) WBC 6.8 4.8 - 10.8 K/mcL LAB HEMETOLOGY METHOD 11/10/2024 1:46 PM EDT [facility] RBC 3.40(L) 3.80 - 4.80 M/mcL LAB HEMETOLOGY METHOD 11/10/2024 1:46 PM EDT [facility] Hemoglobin 11.0(L) 11.5 - 16.0 g/dL LAB HEMETOLOGY METHOD 11/10/2024 1:46 PM EDT [facility] Hematocrit 34.4(L) 35.0 - 47.0 % LAB HEMETOLOGY METHOD 11/10/2024 1:46 PM EDT [facility] MCV 100.6(H) 79.0 - 98.0 FL LAB HEMETOLOGY METHOD 11/10/2024 1:46 PM EDT [facility] MCH 32.2(H) 27.0 - 32.0 pcg LAB HEMETOLOGY METHOD 11/10/2024 1:46 PM EDT [facility] MCHC 32.0 32.0 - 37.0 g/dL LAB HEMETOLOGY METHOD 11/10/2024 1:46 PM EDT [facility] RDW 14.5 11.0 - 15.0 % LAB HEMETOLOGY METHOD 11/10/2024 1:46 PM EDT [facility] Platelets 160 130 - 400 K/mcL LAB HEMETOLOGY METHOD 11/10/2024 1:46 PM EDT [facility] MPV 10.1 7.0 - 11.0 FL LAB HEMETOLOGY METHOD 11/10/2024 1:46 PM EDT [facility] NRBC 0.0 <1.0 % LAB HEMETOLOGY METHOD 11/10/2024 1:46 PM EDT [facility] NRBC Absolute 0.00 <0.10 K/mcL LAB HEMETOLOGY METHOD 11/10/2024 1:46 PM EDT [facility] Blood Venous blood specimen / Unknown Venipuncture / Unknown 11/10/2024 6:08 AM EDT 11/10/2024 11:46 AM EDT us Eusebio Sprague MD LAB BLOOD ORDERABLES Final Resul t [facility] [address] [place] [address], [place] [phone] * (ABNORMAL) Prothrombin time with INR (11/10/2024 6:08 AM EDT) Protime 33.8(H) 10.6 - 13.9 sec LAB COAGULATION METHOD 11/10/2024 12:48 PM EDT [facility] INR 2.7 LAB COAGULATION METHOD 11/10/2024 12:48 PM EDT [facility] Blood Venous blood specimen / Unknown Venipuncture / Unknown 11/10/2024 6:08 AM EDT 11/10/2024 11:46 AM EDT us Eusebio Sprague MD LAB BLOOD ORDERABLES Final Resul t [facility] [address] [place], [place] [address] [phone] documented in this encounter Visit Diagnoses Diagnosis Unspecified atrial fibrillation (CMS/[facility] V24, CMS/HCC V28) Heart failure, unspecified (CMS/[facility] V24, CMS/[facility] V28) Heart failure, unspecified documented in this encounter Care Teams Smoke Jumper Relationship Specialty Start Date End Date Eusebio Sprague MD [address] [place] [address] [address] [place] [address] PCP - General Geriatric Medicine 11/05/24 documented as of this encounter
--- OUTSIDE RECORDS SUMMARY | 2024-12-12 13:33 | XMS_ITS | Encounter Summary ---
Author Organization [employer] Address [address] [place] [address] Care Team Providers Care Car Sander Name Role Phone Eusebio Sprague MD Primary Care Provider [phone] Encounter Details Date Type Department Care Team (Late st Contact Info) Description 11/05/2024 Lab Requisition [facility] - Main Lab [address] [facility] [place] [address] Eusebio Sprague MD [address] [place], [place] [phone] Unspecified atrial fibrillation (CMS/HCC V24, CMS/HCC V28) [...] Diagnosis Comments PROTHROMBIN TIME WITH INR Routine 11/06/2024 7:06 AM EDT Unspecified atrial fibrillation (CMS/HCC V24, CMS/HCC V28) documented in this encounter Results * (ABNORMAL) Prothrombin time with INR (11/06/2024 7:06 AM EDT) Protime 19.6(H) 10.6 - 13.9 sec LAB COAGULATION METHOD 11/06/2024 9:24 AM [facility] INR 1.6 LAB COAGULATION METHOD 11/06/2024 9:24 AM [facility] Blood Venous blood specimen / Unknown Venipuncture / Unknown 11/06/2024 7:06 AM EDT 11/06/2024 9:01 AM EDT Eusebio Sprague MD LAB BLOOD ORDERABLES Final Resul t [facility] [address] [place] [address], documented in this encounter Visit Diagnoses Diagnosis Unspecified atrial fibrillation (CMS/HCC V24, CMS/HCC V28) documented in this encounter Care Teams Car Sander Relationship Specialty Start Date End Date Eusebio Sprague MD [address] [place] [address] [address] [place] [address] PCP - General Geriatric Medicine 11/05/24 documented as of this encounter
--- OUTSIDE RECORDS SUMMARY | 2024-12-12 13:33 | XMS_ITS | Clinical Summary ---
Author Organization [facility] [address] [place] [address] Phone Care Team Providers Care Hospice Nurse Practitioner Name Role Phone Ruben Dick Primary Care Provider [phone] Allergies No known active allergies Medications amiodarone [...] patient's age to complete this topic Insurance Care Teams Hospice Nurse Practitioner Relationship Specialty Start Date End Date Ruben Dick PA [address] [place] [address], [address] [place] [address] PCP - General Physician Lead Sales Consultant 07/19/21
--- OUTSIDE RECORDS SUMMARY | 2024-12-12 13:33 | XMS_ITS | Encounter Summary ---
Author Organization [employer] Address [address] [place] [address] Care Team Providers Care Plan Consultant Name Role Phone Eusebio Sprague MD Primary Care Provider [phone] Encounter Details Date Type Department Care Team (Late st Contact Info) Description 12/10/2024 Lab Requisition [facility] - Main Lab [address] [facility] [place] [address] Eusebio Sprague MD [address] [place], [place] [phone] Unspecified atrial fibrillation (CMS/HCC V24, CMS/HCC V28) [...] time with INR (12/11/2024 6:52 AM EDT) Protime 27.7(H) 10.6 - 13.9 sec LAB COAGULATION METHOD 12/11/2024 10:[address] [facility] INR 2.2 LAB COAGULATION METHOD 12/11/2024 10:[address] [facility] Blood Venous blood specimen / Unknown Venipuncture / Unknown 12/11/2024 6:52 AM EDT 12/11/2024 9:39 AM EDT Eusebio Sprague MD LAB BLOOD ORDERABLES Final Resul t [facility] [address] [place] [address], documented in this encounter Visit Diagnoses Diagnosis Unspecified atrial fibrillation (CMS/HCC V24, CMS/HCC V28) documented in this encounter Care Teams Plan Consultant Relationship Specialty Start Date End Date Eusebio Sprague MD [address] [place] [address] [address] [place] [address] PCP - General Geriatric Medicine 11/05/24 documented as of this encounter
--- OUTSIDE RECORDS SUMMARY | 2024-12-12 13:33 | XMS_ITS | Encounter Summary ---
Author Organization [employer] Address [address] [place] [address] Care Team Providers Care Occ Therapist Name Role Phone Eusebio Sprague MD Primary Care Provider Encounter Details Date Type Department Care Team (Late st Contact Info) Description 11/24/2024 Lab Requisition [facility] - Main Lab [address] [place] [address] Reena Salmon PA [address] [facility] [place] [address] Heart failure, unspecified (CMS/HCC V24, CMS/HCC V28); [...] Name Priority Date/Time Associated Diagnosis Comments VITAMIN B12 AND FOLATE Routine 11/24/2024 6:19 [...] Results * (ABNORMAL) Prothrombin time with INR (11/24/2024 6:19 AM EDT) Protime 24.5(H) 10.6 - 13.9 sec LAB COAGULATION METHOD 11/24/2024 10:32 AM [facility] INR 2.0 LAB COAGULATION METHOD 11/24/2024 10:32 AM [facility] Blood Venous blood specimen / Unknown Venipuncture / Unknown 11/24/2024 6:19 AM EDT 11/24/2024 10:10 AM EDT us Reena FOSTER LAB BLOOD ORDERABLES Final Resu lt Performing Organization Address City/[facility]/ZIP Co de Phone Number [facility] [address] [place] [address], [place] [phone] * Magnesium (11/24/2024 6:19 AM EDT) Pathologist [facility] Magnesium 2.4 1.9 - 2.6 mg/dL LAB CHEMISTRY METHOD 11/24/2024 11:02 AM EDT [facility] Blood Venous blood specimen / Unknown Venipuncture / Unknown 11/24/2024 6:19 AM EDT 11/24/2024 10:10 AM EDT us Reena FOSTER LAB BLOOD ORDERABLES Final Resu lt Performing Organization Address [facility]/ZIP Co de Phone Number [facility] [address] [place] [address], [place] [phone] * (ABNORMAL) Vitamin D 25 hydroxy (11/24/2024 6:19 AM EDT) [facility] Vit D, 25-Hydroxy 29.0(L) 30.0 - 80.0 ng/mL LAB CHEMISTRY METHOD 11/24/2024 11:59 AM EDT [facility] Blood Venous blood specimen / Unknown Venipuncture / Unknown 11/24/2024 6:19 AM EDT 11/24/2024 10:10 AM EDT us Reena FOSTER LAB BLOOD ORDERABLES Final Resu lt Performing Organization Address City/[facility]/ZIP Co de Phone Number [facility] [address] [place] [address], [place] [phone] * (ABNORMAL) Thyroid stimulating hormone (11/24/2024 6:19 AM EDT) [facility] TSH 4.43(H) 0.40 - 4.00 mcIU/mL LAB CHEMISTRY METHOD 11/24/2024 11:59 AM EDT [facility] Blood Venous blood specimen / Unknown Venipuncture / Unknown 11/24/2024 6:19 AM EDT 11/24/2024 10:10 AM EDT us Reena FOSTER LAB BLOOD ORDERABLES Final Resu lt Performing Organization Address [facility]/ZIP Co de Phone Number [facility] [address] [place] [address], [place] [phone] * Vitamin B12 and folate (11/24/2024 6:19 AM EDT) [facility] Vitamin B-12 470 250 - 900 pcg/mL LAB CHEMISTRY METHOD 11/24/2024 11:28 AM EDT [facility] Folate 6.3 2.8 - 17.0 ng/ml LAB CHEMISTRY METHOD 11/24/2024 11:28 AM EDT [facility] Blood Venous blood specimen / Unknown Venipuncture / Unknown 11/24/2024 6:19 AM EDT 11/24/2024 10:10 AM EDT us Reena FOSTER LAB BLOOD ORDERABLES Final Resu lt Performing Organization Address City/[facility]/ZIP Co de Phone Number [facility] [address] [place] [address], [place] [phone] * (ABNORMAL) Comprehensive metabolic panel (11/24/2024 6:19 AM EDT) [facility] Sodium 139 133 - 145 mmol/L LAB CHEMISTRY METHOD 11/24/2024 11:28 AM EDT [facility] Potassium 5.1 3.5 - 5.5 mmol/L LAB CHEMISTRY METHOD 11/24/2024 11:28 AM EDT [facility] Chloride 108 96 - 110 mmol/L LAB CHEMISTRY METHOD 11/24/2024 11:28 AM [facility] CO2 25 21 - 32 mmol/L LAB CHEMISTRY METHOD 11/24/2024 11:28 AM [facility] Anion Gap 6 3 - 11 LAB CHEMISTRY METHOD 11/24/2024 11:28 AM [facility] Glucose 66(L) 70 - 100 mg/dL LAB CHEMISTRY METHOD 11/24/2024 11:28 AM [facility] BUN 45(H) 5 - 25 mg/dL LAB CHEMISTRY METHOD 11/24/2024 11:28 AM [facility] Creatinine 1.48(H) 0.50 - 1.10 mg/dL LAB CHEMISTRY METHOD 11/24/2024 11:28 AM [facility] eGFR 34(L) >=60 mL/min/1. 73m2 LAB CHEMISTRY METHOD 11/24/2024 11:28 AM [facility] Comment:Calculation based on the Chronic Kidney Disease Epidemiology Collaboration (CKD-EPI) equation refit without adjustment for race. BUN/Creatinine Ratio 30.4 LAB CHEMISTRY METHOD 11/24/2024 11:28 AM [facility] Calcium 8.1(L) 8.5 - 10.5 mg/dL LAB CHEMISTRY METHOD 11/24/2024 11:28 AM [facility] AST (SGOT) 51(H) 10 - 42 unit/L LAB CHEMISTRY METHOD 11/24/2024 11:28 AM [facility] ALT (SGPT) 58 10 - 60 unit/L LAB CHEMISTRY METHOD 11/24/2024 11:28 AM [facility] Alkaline Phosphatase 119 42 - 121 unit/L LAB CHEMISTRY METHOD 11/24/2024 11:28 AM [facility] Total Protein 4.8(L) 6.0 - 8.0 g/dL LAB CHEMISTRY METHOD 11/24/2024 11:28 AM EDT [facility] Albumin 2.3(L) 3.2 - 5.0 g/dL LAB CHEMISTRY METHOD 11/24/2024 11:28 AM EDT [facility] Total Bilirubin 0.3 0.0 - 1.4 mg/dL LAB CHEMISTRY METHOD 11/24/2024 11:28 AM T [facility] Blood Venous blood specimen / Unknown Venipuncture / Unknown 11/24/2024 6:19 AM EDT 11/24/2024 10:10 AM EDT us Reena FOSTER LAB BLOOD ORDERABLES Final Resu lt [facility] [address] [place] [address], [place] [phone] * (ABNORMAL) Complete blood count (11/24/2024 6:19 AM EDT) WBC 6.4 4.8 - 10.8 K/mcL LAB HEMETOLOGY METHOD 11/24/2024 10:32 AM [facility] RBC 3.30(L) 3.80 - 4.80 M/mcL LAB HEMETOLOGY METHOD 11/24/2024 10:32 AM [facility] Hemoglobin 10.6(L) 11.5 - 16.0 g/dL LAB HEMETOLOGY METHOD 11/24/2024 10:32 AM T [facility] Hematocrit 33.6(L) 35.0 - 47.0 % LAB HEMETOLOGY METHOD 11/24/2024 10:32 AM [facility] MCV 100.9(H) 79.0 - 98.0 FL LAB HEMETOLOGY METHOD 11/24/2024 10:32 AM [facility] MCH 31.8 27.0 - 32.0 pcg LAB HEMETOLOGY METHOD 11/24/2024 10:32 AM EDT [facility] MCHC 31.5(L) 32.0 - 37.0 g/dL LAB HEMETOLOGY METHOD 11/24/2024 10:32 AM EDT [facility] RDW 13.9 11.0 - 15.0 % LAB HEMETOLOGY METHOD 11/24/2024 10:32 AM EDT [facility] Platelets 223 130 - 400 K/mcL LAB HEMETOLOGY METHOD 11/24/2024 10:32 AM EDT [facility] MPV 10.0 7.0 - 11.0 FL LAB HEMETOLOGY METHOD 11/24/2024 10:32 AM EDT [facility] NRBC 0.0 <1.0 % LAB HEMETOLOGY METHOD 11/24/2024 10:32 AM EDT [facility] NRBC Absolute 0.00 <0.10 K/mcL LAB HEMETOLOGY METHOD 11/24/2024 10:32 AM EDT [facility] Blood Venous blood specimen / Unknown Venipuncture / Unknown 11/24/2024 6:19 AM EDT 11/24/2024 10:10 AM EDT us Reena FOSTER LAB BLOOD ORDERABLES Final Resu lt [facility] [address] [place] [address], documented in this encounter Visit Diagnoses Diagnosis Heart failure, unspecified (CMS/HCC V24, CMS/HCC V28) Heart failure, unspecified Vitamin D deficiency, unspecified Hypothyroidism, unspecified Unspecified atrial fibrillation (CMS/HCC V24, CMS/HCC V28) documented in this encounter Care Teams Occ Therapist Relationship Specialty Start Date End Date Eusebio Sprague MD [address] [place], [place] [id number] [place] [address] PCP - General Geriatric Medicine 11/05/24 documented as of this encounter
--- OUTSIDE RECORDS SUMMARY | 2024-12-12 13:33 | XMS_ITS | Patient Health Record ---
Author Organization [facility] Address [address] [place] [address] Care Team Providers Care Rig Supervisor Name Role Phone Kim LOPEZ, Jose Cruz [...] Problem Status W/U Status Risk Notes Problem [id number] [facility] (curre nt) use of anticoagulants (Z79.01) Active confirmed Problem 07638092 Iron deficiency anemia (D50.9) Active confirmed Problem 77596957 Colon polyp (K63.5) Active confirmed Problem [id number] Erosive esophagi tis (K22.10) Active confirmed Plan Of Treatment Future Test Test Name Order Date UPPER GI ENDOSCOPY 03/01/2016 COLONOSCOPY 03/01/2016 Insurance Providers Payer Name Payer Address Payer Phone Subscriber Number Group Number Insured Name Patient Relationship to Insured Coverage Start Date Coverage End Date [facility] [address] [facility] [phone] [id number] CHRISTAL ROGERS Self - patient is the insured Medical (General) History Medical History History ICD Code colonoscopy 07-02-10 hemorrhoids history of intermittent rectal itching a nd discomfort breast cancer on the left, s tatus post mastectomy and lymph node resetion in 1992 hypertension melanoma shingles with post-hepatic neuralgia Denies AL,DM,CVA,Lung disease,renal dise ase Atrial fibrillation blood clots Surgical History Surgery Date(Month/Year) mastectomy and lymph node resection in -left breast removal of melanoma from the back hysterectomy for fibroid disease lumpectomy, right breast 2013
--- NOTE | 2024-12-12 13:44 | A.OFFVIS_ITS ---
Intake Visit Reasons: OV left ankle fx cast off with x-rays Intake Note: Rosy is an 89 year old female presents today for her follow up visit for her left lateral malleolus fracture, DOI 10/28/24. At her last visit she was placed in a short leg cast and was advise to keep cast dry and clean. Cast removed in office and xrays updated. Currently states she is doing well, states that she has not had pain. She is hoping to come out of cast today. Allergies No Known Allergies (No Known Allergies*) Allergy (Verified 12/12/24 13:46) Medication List - Last Reconciled 12/12/24 by Rebecca Velez PA-C acetaminophen 1,000 mg PO Q6H PRN amiodarone 100 mg PO DAILY amlodipine 5 mg PO DAILY atorvastatin 20 mg PO DAILY calcium carbonate (Calcium 600) 600 mg PO DAILY metoprolol succinate ER 25 mg (1/2 x 50 mg) PO DAILY omeprazole 20 mg PO DAILY PRN omeprazole 20 mg PO DAILY PRN raloxifene 60 mg PO DAILY walker (Ultra-Light [facility]) As directed warfarin 2 mg PO SUMOTUWEFRSA@1800 warfarin 4 mg PO TH@1800 HPI HPI OV left ankle fx cast off with x-rays: Details: 89-year-old female returns to the office today for a follow-up left ankle fracture. She has been nonweightbearing for the last 6 weeks. She is at a rehab facility and she is working with physical therapy but continues to remain nonweightbearing on the left lower extremity. [facility] Medical History PAF (paroxysmal atrial fibrillation) Essential hypertension Pulmonary hypertension Non-rheumatic tricuspid stenosis with insufficiency Abnormal myocardial perfusion study Chronic heart failure with preserved ejection fraction (HFpEF) Hiatal hernia Diverticulitis Gastro-esophageal reflux disease without esophagitis High cholesterol Hypertension Atrial fibrillation Surgical History S/P total abdominal hysterectomy History of cardioversion H/O mastectomy Family History Father Heart disease Mother Colon cancer Social History Household Members: None Housing: Apartment Are you a primary health care facilities inspector to a significant other at home: No Do you presently have visiting nurse or other home services: No Alcohol intake: never Patient Tobacco Use Status: Never used Tobacco e-Cigarette/Vaping Use: Never Used Second Hand Smoke Exposure: No Advance Directives Date on File: 01/16/20 service: No Current occupational status: retired Cognitive needs: No Hearing needs: No Vision needs: No Review of Systems Const All systems reviewed & are unremarkable except as noted in HPI and below Physical Exam Extrem Other: Left ankle is normal to inspection. No erythema or swelling. No discomfort over the fracture site. No pain over the syndesmosis. Calf is supple and nontender neurovascularly intact. Results Reviewed Results Reviewed: X-rays of the left ankle obtained in the office today and reviewed by me show stable fracture through the distal fibula with early healing Assessment & Plan Assessment & Plan (1) Fracture of lateral malleolus: Code(s): S82.63XA - Displaced fracture of lateral malleolus of unspecified fibula, initial encounter for closed fracture Category: Medical Plan: Patient was transitioned to a tall boot weightbearing as tolerated with a walker. She can begin physical therapy for gait training and strengthening exercises. She will slowly increase activities and I would like to see her back in 8 weeks with x-rays sooner if needed. Orders: Orders XR ankle LT min 3V Today M25.572 - Pain in left ankle and joints of left foot Coding Level of Care Code Global (82205) Diagnoses Fracture of lateral malleolus S82.63XA
== END 2024-12-12 14:09 | disposition home or self-care (01) ==
LOC: HO.HOS 13:14
PROVIDERS: PCP Physician Assistant; Visit Provider Physician Assistant
DX: S82.63XA Displaced fracture of lateral malleolus of unspecified fibula, initial encounter for closed fracture (principal)
CPT/HCPCS: 99213

== ENCOUNTER → 2024-12-12 13:17 | Outpatient (BNV) | payer MEDICARE, SELFPAY | PROVIDERS: Visit Provider Radiology Diagnostic Radiology | DX: S82.402D Unspecified fracture of shaft of left fibula, subsequent encounter for closed fracture with routine healing (principal) | CPT/HCPCS: 73610 ==

== ENCOUNTER 2024-12-25 13:54 | Outpatient (AMB) | payer MEDICARE, SELFPAY ==
--- NOTE | 2024-12-25 14:10 | MHC.OFFVISCO ---
Intake Intake Visit Reasons: Anticoagulation Allergies No Known Allergies (No Known Allergies*) Allergy (Verified 12/12/24 13:46) Nursing Note INR received from [facility] nurse Dwight, INR today is 1.9, T/c to nurse who was with pt at the time. Pt was in a rehab facility S/P fall with a fractured ankle. She was d/c'd to home and now in assisted living facility with VNA services. Medications verified with nurse. She states pt is now weight bearing but will continue to wear a boot for 6 more weeks. Patient status: improving Denies any signs and symptoms of any unusual bruising, bleeding or clotting Medication or supplements: verified Diet: appetite good Activity: as leena Dose: Nurse states pt has been receiving warfarin 3mg daily. Will increase today's dose to 4mg then 3mg daily and retest on 12/29/24 Dosing and diet instructions given with next retest date of 12/29/24, Nurse verbalizes understanding of instructions given with accurate read back Anti-Coag Initial Assessment Social Hx Patient Tobacco Use Status: Never used Tobacco alcohol intake: never Coding Level of Care Code Est Patient Level 2 Diagnoses Current use of anticoagulant therapy Z79.01 Time Spent (min) 30 Comment new VNA pt s/p rehab for fx ankle, now in asst living, meds verified, instructions given Results AMB INR Fingerstick AMB INR Fingerstick 1.9 Last Edit by Erika Lloyd, RN on 12/25/24 13:55 VNA Assessment & Plan Assessment & Plan (1) Current use of anticoagulant therapy: Code(s): Z79.01 - equipment operator intermodal yard (current) use of anticoagulants Category: Medical
--- OUTSIDE RECORDS SUMMARY | 2024-12-25 17:47 | XMS_ITS | Patient Health Record ---
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 (Z79.01) Active confirmed Problem 18105946 Iron deficiency anemia (D50.9) Active confirmed Problem 65449647 Colon polyp (K63.5) Active confirmed Problem 15431462 Erosive esophagi tis (K22.10) Active confirmed Plan Of Treatment Future Test Test Name Order Date UPPER GI ENDOSCOPY 03/01/2016 COLONOSCOPY 03/01/2016 Insurance Providers Payer Name Payer Address Payer Phone Subscriber Number Group Number Insured Name Patient Relationship to Insured Coverage Start Date Coverage End Date [facility] [address] [facility] [phone] [id number] CHRISTAL ROGERS Self - patient is the insured Medical (General) History Medical History History ICD Code colonoscopy 07-02-10 hemorrhoids history of intermittent rectal itching a nd discomfort breast cancer on the left, s tatus post mastectomy and lymph node resetion in 1992 hypertension melanoma shingles with post-hepatic neuralgia Denies [place],DM,CVA,Lung disease,renal dise ase Atrial fibrillation blood clots Surgical History Surgery Date(Month/Year) mastectomy and lymph node resection in -left breast removal of melanoma from the back hysterectomy for fibroid disease lumpectomy, right breast 2013
--- OUTSIDE RECORDS SUMMARY | 2024-12-25 17:47 | XMS_ITS | Clinical Summary ---
Author Organization [facility] [address] [place] [address] Phone Care Team Providers Care Rehab Nurse Name Role Phone Ruben Dick Primary Care Provider [phone] Allergies No known active allergies Medications amiodarone [...] to complete this topic Insurance Care Teams Rehab Nurse Relationship Specialty Start Date End Date Ruben Dick PA [address] [place] [address], [address] [place] [address] PCP - General Physician Broadcast News Producer 07/19/21
== END 2024-12-25 14:23 | disposition home or self-care (01) ==
PROVIDERS: PCP Physician Assistant; Visit Provider Internal Medicine Medical Oncology
DX: Z79.01 Long term (current) use of anticoagulants (principal)

== ENCOUNTER → 2024-12-25 13:54 | Outpatient (BNVA) | payer MEDICARE, SELFPAY | PROVIDERS: PCP Physician Assistant; Visit Provider Internal Medicine Medical Oncology | DX: I48.0 Paroxysmal atrial fibrillation (principal); Z79.01 Long term (current) use of anticoagulants; Z51.81 Encounter for therapeutic drug level monitoring | CPT/HCPCS: 85610; 99211; 99212 ==

== ENCOUNTER 2025-01-01 09:07 | Outpatient (REF) | payer MEDICARE, SELFPAY ==
[2025-01-01 09:30] LABS: Hematocrit 40.2 % (37.0-47.0); Hemoglobin 13.1 g/dl (12.0-16.0); Mean Corpuscular HGB Conc 32.6 g/dl (31.0-35.0); Mean Corpuscular Hemoglobin 31.4 pg (27.0-33.0); Mean Corpuscular Volume 96.4 fL (80.0-98.0); NRBC Abs Auto 0.000 X10*3/uL (0.0-0.012); NRBC Pct Auto 0.0 /100WBC (0.0-0.2); Platelet Count 176 X10*3/uL (160-400); Red Blood Count 4.17 X10*6/uL (4.20-5.50); White Blood Count 5.1 X10*3/uL (4.8-10.8)
[2025-01-01 10:07] LABS: Alanine Aminotransferase 31 U/L (0-31); Albumin Level 3.8 g/dL (3.5-5.0); Alkaline Phosphatase 95 U/L (39-117); Anion Gap 10 (12-20); Aspartate Amino Transferase 48 U/L (5-31); Blood Urea Nitrogen 27 mg/dL (9-16); Calcium 9.5 mg/dL (8.4-10.2); Carbon Dioxide 24 mmol/L (22-29); Chloride 112 mmol/L (96-108); Cholesterol 123 mg/dL (<200); Estimated Glomerular Filt Rate 35; HDL Cholesterol 53 mg/dL (>40); Potassium 4.2 mmol/L (3.3-5.1); Sodium 142 mmol/L (135-145); Total Protein 6.6 g/dL (6.5-8.0); Triglycerides 72 mg/dL (<150)
--- OUTSIDE RECORDS SUMMARY | 2025-01-01 10:36 | XMS_ITS | Encounter Summary ---
Author Organization [employer] Address [address] [place] [address] Care Team Providers Care Car Builder Name Role Phone Eusebio Sprague MD Primary Care Provider [phone] Encounter Details Date Type Department Care Team (Late st Contact Info) Description 11/08/2024 Lab Requisition [facility] - Main Lab [address] [place] [address] Eusebio Sprague MD [address] [place], [place] [phone] Unspecified atrial fibrillation (CMS/HCC V24, CMS/HCC V28); [...] (CMS/HCC V24, CMS/HCC V28) Heart failure, unspecified ([facility] V24, [facility] V28) documented in this encounter Results * (ABNORMAL) Basic metabolic panel (11/10/2024 6:08 AM EDT) Sodium 139 133 - 145 mmol/L LAB CHEMISTRY METHOD 11/10/2024 1:25 PM [facility] Potassium 4.6 3.5 - 5.5 mmol/L LAB CHEMISTRY METHOD 11/10/2024 1:25 PM [facility] Chloride 111(H) 96 - 110 mmol/L LAB CHEMISTRY METHOD 11/10/2024 1:25 PM [facility] CO2 22 21 - 32 mmol/L LAB CHEMISTRY METHOD 11/10/2024 1:25 PM [facility] Anion Gap 6 3 - 11 LAB CHEMISTRY METHOD 11/10/2024 1:25 PM [facility] Glucose 64(L) 70 - 100 mg/dL LAB CHEMISTRY METHOD 11/10/2024 1:25 PM [facility] BUN 44(H) 5 - 25 mg/dL LAB CHEMISTRY METHOD 11/10/2024 1:25 PM [facility] Creatinine 1.53(H) 0.50 - 1.10 mg/dL LAB CHEMISTRY METHOD 11/10/2024 1:25 PM [facility] eGFR 33(L) >=60 mL/min/1. 73m2 LAB CHEMISTRY METHOD 11/10/2024 1:25 PM [facility] Comment:Calculation based on the Chronic Kidney Disease Epidemiology Collaboration (CKD-EPI) equation refit without adjustment for race. BUN/Creatinine Ratio 28.8 LAB CHEMISTRY METHOD 11/10/2024 1:25 PM [facility] Calcium 8.2(L) 8.5 - 10.5 mg/dL LAB CHEMISTRY METHOD 11/10/2024 1:25 PM [facility] Blood Venous blood specimen / Unknown Venipuncture / Unknown 11/10/2024 6:08 AM EDT 11/10/2024 11:46 AM EDT Eusebio Sprague MD LAB BLOOD ORDERABLES Final Resul t [facility] [address] [place] [address], * (ABNORMAL) Complete blood count (11/10/2024 6:08 AM EDT) WBC 6.8 4.8 - 10.8 K/mcL LAB HEMETOLOGY METHOD 11/10/2024 1:46 PM EDT [facility] RBC 3.40(L) 3.80 - 4.80 M/mcL LAB HEMETOLOGY METHOD 11/10/2024 1:46 PM EDT [facility] Hemoglobin 11.0(L) 11.5 - 16.0 g/dL LAB HEMETOLOGY METHOD 11/10/2024 1:46 PM EDT [facility] Hematocrit 34.4(L) 35.0 - 47.0 % LAB HEMETOLOGY METHOD 11/10/2024 1:46 PM EDT [facility] MCV 100.6(H) 79.0 - 98.0 FL LAB HEMETOLOGY METHOD 11/10/2024 1:46 PM EDT [facility] MCH 32.2(H) 27.0 - 32.0 pcg LAB HEMETOLOGY METHOD 11/10/2024 1:46 PM EDT [facility] MCHC 32.0 32.0 - 37.0 g/dL LAB HEMETOLOGY METHOD 11/10/2024 1:46 PM EDT [facility] RDW 14.5 11.0 - 15.0 % LAB HEMETOLOGY METHOD 11/10/2024 1:46 PM EDT [facility] Platelets 160 130 - 400 K/mcL LAB HEMETOLOGY METHOD 11/10/2024 1:46 PM EDT [facility] MPV 10.1 7.0 - 11.0 FL LAB HEMETOLOGY METHOD 11/10/2024 1:46 PM EDT [facility] NRBC 0.0 <1.0 % LAB HEMETOLOGY METHOD 11/10/2024 1:46 PM EDT [facility] NRBC Absolute 0.00 <0.10 K/mcL LAB HEMETOLOGY METHOD 11/10/2024 1:46 PM EDT [facility] Blood Venous blood specimen / Unknown Venipuncture / Unknown 11/10/2024 6:08 AM EDT 11/10/2024 11:46 AM EDT us Eusebio Sprague MD LAB BLOOD ORDERABLES Final Resul t [facility] [address] [place] [address], [place] [phone] * (ABNORMAL) Prothrombin time with INR (11/10/2024 6:08 AM EDT) Protime 33.8(H) 10.6 - 13.9 sec LAB COAGULATION METHOD 11/10/2024 12:48 PM EDT [facility] INR 2.7 LAB COAGULATION METHOD 11/10/2024 12:48 PM EDT [facility] Blood Venous blood specimen / Unknown Venipuncture / Unknown 11/10/2024 6:08 AM EDT 11/10/2024 11:46 AM EDT us Eusebio Sprague MD LAB BLOOD ORDERABLES Final Resul t [facility] [address] [place], [place] [address] [phone] documented in this encounter Visit Diagnoses Diagnosis Unspecified atrial fibrillation (CMS/[facility] V24, CMS/HCC V28) Heart failure, unspecified (CMS/[facility] V24, CMS/[facility] V28) Heart failure, unspecified documented in this encounter Care Teams Car Builder Relationship Specialty Start Date End Date Eusebio Sprague MD [address] [place] [address] [address] [place] [address] PCP - General Geriatric Medicine 11/05/24 documented as of this encounter
--- OUTSIDE RECORDS SUMMARY | 2025-01-01 10:36 | XMS_ITS | Patient Health Record ---
Author Organization [facility] Address [address] [place] [address] Care Team Providers Care Desktop Publishing Specialist Name Role Phone Kim LOPEZ, Jose Cruz [...] Problem Status W/U Status Risk Notes Problem [id number] rn long term care (curre nt) use of anticoagulants (Z79.01) Active confirmed Problem 03528415 Iron deficiency anemia (D50.9) Active confirmed Problem 87627293 Colon polyp (K63.5) Active confirmed Problem 20552195 Erosive esophagi tis (K22.10) Active confirmed Plan Of Treatment Future Test Test Name Order Date UPPER GI ENDOSCOPY 03/01/2016 COLONOSCOPY 03/01/2016 Insurance Providers Payer Name Payer Address Payer Phone Subscriber Number Group Number Insured Name Patient Relationship to Insured Coverage Start Date Coverage End Date [facility] [address] [facility] [phone] [id number] CHRISTAL ROGERS Self - patient is the insured Medical (General) History Medical History History ICD Code colonoscopy 07-02-10 hemorrhoids history of intermittent rectal itching a nd discomfort breast cancer on the left, s tatus post mastectomy and lymph node resetion in 1992 hypertension melanoma shingles with post-hepatic neuralgia Denies [place],DM,CVA,Lung disease,renal dise ase Atrial fibrillation blood clots Surgical History Surgery Date(Month/Year) mastectomy and lymph node resection in -left breast removal of melanoma from the back hysterectomy for fibroid disease lumpectomy, right breast 2013
--- OUTSIDE RECORDS SUMMARY | 2025-01-01 10:36 | XMS_ITS | Encounter Summary ---
Author Organization [employer] Address [address] [place] [address] Care Team Providers Care Tool Grinder Operator Name Role Phone Eusebio Sprague MD Primary Care Provider [phone] Encounter Details Date Type Department Care Team (Late st Contact Info) Description 12/24/2024 Lab Requisition [facility] - Main Lab [address] [facility] [place] [address] Eusebio Sprague MD [address] [place], [place] [phone] Unspecified atrial fibrillation (CMS/HCC V24, CMS/HCC V28) [...] V28) documented in this encounter Care Teams Tool Grinder Operator Relationship Specialty Start Date End Date Eusebio Sprague MD [address] [place], [place] [id number] PCP - General Geriatric Medicine 11/05/24 documented as of this encounter
--- OUTSIDE RECORDS SUMMARY | 2025-01-01 10:36 | XMS_ITS | Encounter Summary ---
Author Organization [employer] Address [address] [place] [address] Care Team Providers Care Sales Support Specialist Name Role Phone Eusebio Sprague MD Primary Care Provider [phone] Encounter Details Date Type Department Care Team (Late st Contact Info) Description 12/17/2024 Lab Requisition [facility] - Main Lab [address] [facility] [place] [address] Eusebio Sprague MD [address] [place], [place] [id number] Unspecified atrial fibrillation (CMS/HCC V24, CMS/HCC V28) [...] Diagnosis Comments PROTHROMBIN TIME WITH INR Routine 12/18/2024 6:57 AM EDT Unspecified atrial fibrillation (CMS/HCC V24, CMS/HCC V28) documented in this encounter Results * (ABNORMAL) Prothrombin time with INR (12/18/2024 6:57 AM EDT) Protime 22.9(H) 10.6 - 13.9 sec LAB COAGULATION METHOD 12/18/2024 10:20 AM [facility] INR 1.8 LAB COAGULATION METHOD 12/18/2024 10:20 AM [facility] Blood Venous blood specimen / Unknown Venipuncture / Unknown 12/18/2024 6:57 AM EDT 12/18/2024 9:44 AM EDT Eusebio Sprague MD LAB BLOOD ORDERABLES Final Resul t [facility] ([facility]) [facility] [address] [place] [address], documented in this encounter Visit Diagnoses Diagnosis Unspecified atrial fibrillation (CMS/HCC V24, CMS/HCC V28) documented in this encounter Care Teams Sales Support Specialist Relationship Specialty Start Date End Date Eusebio Sprague MD [address] [place] [address] [address] [place] [address] PCP - General Geriatric Medicine 11/05/24 documented as of this encounter
--- OUTSIDE RECORDS SUMMARY | 2025-01-01 10:36 | XMS_ITS | Encounter Summary ---
Author Organization [employer] Address [address] [place] [address] Care Team Providers Care Multiple Spindle Screw Machine Operator Name Role Phone Eusebio Sprague MD Primary Care Provider [phone] Encounter Details Date Type Department Care Team (Late st Contact Info) Description 11/12/[address] [facility] - Main Lab [address] [facility] [place] [address] Eusebio Sprague MD [address] [place], [place] [phone] Unspecified atrial fibrillation (CMS/HCC V24, CMS/HCC V28) [...] V28) documented in this encounter Care Teams Multiple Spindle Screw Machine Operator Relationship Specialty Start Date End Date Eusebio Sprague MD [address] [place], [place] [phone] PCP - General Geriatric Medicine 11/05/24 documented as of this encounter
--- OUTSIDE RECORDS SUMMARY | 2025-01-01 10:36 | XMS_ITS | Encounter Summary ---
Author Organization [employer] Address [address] [place] [address] Care Team Providers Care Tubing Mill Operator Name Role Phone Eusebio Sprague MD Primary Care Provider [phone] Encounter Details Date Type Department Care Team (Late st Contact Info) Description 11/29/2024 Lab Requisition [facility] - Main Lab [address] [place] [address] Eusebio Sprague MD [address] [place], [place] [id number] Unspecified atrial fibrillation (CMS/HCC V24, CMS/HCC V28); [...] mmol/L LAB CHEMISTRY METHOD 12/01/2024 12:06 PM [facility] Potassium 4.7 3.5 - 5.5 mmol/L LAB CHEMISTRY METHOD 12/01/2024 12:06 PM [facility] Chloride 113(H) 96 - 110 mmol/L LAB CHEMISTRY METHOD 12/01/2024 12:06 PM [facility] CO2 25 21 - 32 mmol/L LAB CHEMISTRY METHOD 12/01/2024 12:06 PM [facility] Anion Gap 4 3 - 11 LAB CHEMISTRY METHOD 12/01/2024 12:06 PM [facility] Glucose 71 70 - 100 mg/dL LAB CHEMISTRY METHOD 12/01/2024 12:06 PM [facility] BUN 38(H) 5 - 25 mg/dL LAB CHEMISTRY METHOD 12/01/2024 12:06 PM [facility] Creatinine 1.61(H) 0.50 - 1.10 mg/dL LAB CHEMISTRY METHOD 12/01/2024 12:06 PM [facility] eGFR 31(L) >=60 mL/min/1. 73m2 LAB CHEMISTRY METHOD 12/01/2024 12:06 PM [facility] Comment:Calculation based on the Chronic Kidney Disease Epidemiology Collaboration (CKD-EPI) equation refit without adjustment for race. BUN/Creatinine Ratio 23.6 LAB CHEMISTRY METHOD 12/01/2024 12:06 PM [facility] Calcium 8.8 8.5 - 10.5 mg/dL LAB CHEMISTRY METHOD 12/01/2024 12:06 PM [facility] Blood Venous blood specimen / Unknown Venipuncture / Unknown 12/01/2024 6:20 AM EDT 12/01/2024 9:55 AM EDT us Eusebio Sprague MD LAB BLOOD ORDERABLES Final Resul t [facility] [address] [place] [address], * (ABNORMAL) Complete blood count (12/01/2024 6:20 AM EDT) WBC 4.6(L) 4.8 - 10.8 K/mcL LAB HEMETOLOGY METHOD 12/01/2024 11:37 AM EDT [facility] RBC 3.50(L) 3.80 - 4.80 M/mcL LAB HEMETOLOGY METHOD 12/01/2024 11:37 AM EDT [facility] Hemoglobin 10.9(L) 11.5 - 16.0 g/dL LAB HEMETOLOGY METHOD 12/01/2024 11:37 AM EDT [facility] Hematocrit 35.0 35.0 - 47.0 % LAB HEMETOLOGY METHOD 12/01/2024 11:37 AM EDT [facility] MCV 100.0(H) 79.0 - 98.0 FL LAB HEMETOLOGY METHOD 12/01/2024 11:37 AM EDT [facility] MCH 31.1 27.0 - 32.0 pcg LAB HEMETOLOGY METHOD 12/01/2024 11:37 AM EDT [facility] MCHC 31.1(L) 32.0 - 37.0 g/dL LAB HEMETOLOGY METHOD 12/01/2024 11:37 AM EDT [facility] RDW 14.2 11.0 - 15.0 % LAB HEMETOLOGY METHOD 12/01/2024 11:37 [facility] Platelets 173 130 - 400 K/mcL LAB HEMETOLOGY METHOD 12/01/2024 11:37 AM EDT [facility] MPV 9.7 7.0 - 11.0 FL LAB HEMETOLOGY METHOD 12/01/2024 11:37 AM EDT [facility] NRBC 0.0 <1.0 % LAB HEMETOLOGY METHOD 12/01/2024 11:37 AM EDT [facility] NRBC Absolute 0.00 <0.10 K/mcL LAB HEMETOLOGY METHOD 12/01/2024 11:37 AM EDT [facility] Blood Venous blood specimen / Unknown Venipuncture / Unknown 12/01/2024 6:20 AM EDT 12/01/2024 9:55 AM EDT Eusebio Sprague MD LAB BLOOD ORDERABLES Final Resul t Performing Organization Address [facility] Co de Phone Number [facility] [address] [place] [address], [place] [phone] * (ABNORMAL) Prothrombin time with INR (12/01/2024 6:20 AM EDT) Protime 19.3(H) 10.6 - 13.9 sec LAB COAGULATION METHOD 12/01/2024 11:46 AM EDT [facility] INR 1.5 LAB COAGULATION METHOD 12/01/2024 11:46 AM EDT [facility] Blood Venous blood specimen / Unknown Venipuncture / Unknown 12/01/2024 6:20 AM EDT 12/01/2024 9:55 AM EDT Eusebio Sprague MD LAB BLOOD ORDERABLES Final Resul t Performing Organization Address City/[facility]/ZIP Co de Phone Number [facility] [address] [place] [address], [place] [phone] documented in this encounter Visit Diagnoses Diagnosis Unspecified atrial fibrillation (CMS/HCC V24, CMS/HCC V28) Essential (primary) hypertension Unspecified essential hypertension documented in this encounter Care Teams Tubing Mill Operator Relationship Specialty Start Date End Date Eusebio Sprague MD [address] [place] [address] [address] [place] [address] PCP - General Geriatric Medicine 11/05/24 documented as of this encounter
--- OUTSIDE RECORDS SUMMARY | 2025-01-01 10:36 | XMS_ITS | Clinical Summary ---
Author Organization [address] Address [address] [place] [address] Phone Care Team Providers Care Tracer Bullet Charging Machine Operator Name Role Phone Eusebio Sprague MD Primary Care Provider [phone] Encounters Date Type Department Care Team Description 12/24/2024 Lab Requisition [facility] [address] [place] [phone] Eusebio Sprague MD Unspecified atrial fibrillation (CMS/HCC V24, CMS/HCC V28) 12/20/2024 Lab Requisition [facility] [address] [place] [phone] Eusebio Sprague MD Unspecified atrial fibrillation (CMS/HCC V24, CMS/HCC V28); Essential (primary) hypertension 12/17/2024 Lab Requisition [facility] [address] [place] [phone] Eusebio Sprague MD Unspecified atrial fibrillation (CMS/HCC V24, CMS/HCC V28) 12/12/2024 Lab Requisition [facility] [address] [place] [phone] Eusebio Sprague MD Unspecified atrial fibrillation (CMS/HCC V24, CMS/HCC V28); Essential (primary) hypertension 12/11/2024 Lab Requisition [facility] [address] [place] [phone] Eusebio Sprague MD Frequency of micturition 12/10/2024 Lab Requisition [facility] [address] [place] [phone] Eusebio Sprague MD Unspecified atrial fibrillation (CMS/HCC V24, CMS/HCC V28) 12/05/2024 Lab Requisition [facility] [address] [place] [phone] Eusebio Sprague MD Unspecified atrial fibrillation (CMS/HCC V24, CMS/HCC V28); Essential (primary) hypertension 12/03/2024 Lab Requisition [facility] [address] [place] [phone] Eusebio Sprague MD Unspecified atrial fibrillation ([facility]/HCC V24, CMS/HCC V28) 11/29/2024 Lab Requisition [facility] [address] [place] [phone] Eusebio Sprague MD Unspecified atrial fibrillation ([facility]/HCC V24, CMS/HCC V28); Essential (primary) hypertension 11/26/2024 Lab Requisition [facility] [address] [place] [phone] Eusebio Sprague MD Unspecified atrial fibrillation ([facility]/HCC V24, CMS/HCC V28) 11/24/2024 Lab Requisition [facility] [address] [place] [phone] Reena Salmon PA Heart failure, unspecified (CMS/HCC V24, CMS/HCC V28); Vitamin D deficiency, unspecified; Hypothyroidism, unspecified; Unspecified atrial fibrillation (CMS/HCC V24, CMS/HCC V28) 11/15/2024 Lab Requisition [facility] [address] [place] [phone] Eusebio Sprague MD Unspecified atrial fibrillation (CMS/HCC V24, CMS/HCC V28); Heart failure, unspecified (CMS/HCC V24, CMS/HCC V28) 11/12/2024 Lab Requisition [facility] [address] [place] [address] Eusebio Sprague MD Unspecified atrial fibrillation ([facility]/HCC V24, [facility]/HCC V28) 11/08/2024 Lab Requisition [facility] [address] [place] [phone] Eusebio Sprague MD Unspecified atrial fibrillation ([facility] V24, [facility] V28); Heart failure, unspecified ([facility] V24, [facility] V28) 11/05/2024 Lab Requisition [facility] [address] [place] [phone] Eusebio Sprague MD Unspecified atrial fibrillation ([facility] V24, [facility] V28) 11/05/2024 Lab Requisition [facility] [address] [place] [address] Eusebio Sprague MD Unspecified atrial fibrillation ([facility] V24, [facility] V28); Nontoxic single thyroid nodule; Essential (primary) hypertension; Heart failure, unspecified ([facility] V24, [facility] V28); Vitamin D deficiency, unspecified; Diverticulum of [...] history exists Hypertension/CHF/CAD Annual BMP Blood Test 12/22/2025 12/22/2024, 12/16/2024, 12/08/2024, Additional history exists DTaP,Tdap,and Td Vaccines (2 [...] Procedure Name Priority Date/Time Associated Diagnosis Comments BASIC METABOLIC PANEL Routine 12/22/2024 6:15 AM EDT Unspecified atrial fibrillation (CMS/HCC V24, CMS/HCC V28) Essential (primary) hypertension COMPLETE BLOOD COUNT Routine 12/22/2024 6:15 AM EDT Unspecified atrial fibrillation (CMS/HCC V24, CMS/HCC V28) Essential (primary) hypertension PROTHROMBIN TIME WITH INR Routine 12/22/2024 6:15 AM EDT Unspecified atrial fibrillation (CMS/HCC V24, CMS/HCC V28) Essential (primary) hypertension PROTHROMBIN TIME WITH INR Routine 12/18/2024 6:57 AM EDT Unspecified atrial fibrillation (CMS/HCC V24, CMS/HCC V28) BASIC METABOLIC PANEL Routine 12/16/2024 5:01 AM EDT Unspecified atrial fibrillation (CMS/HCC V24, CMS/HCC V28) Essential (primary) hypertension COMPLETE BLOOD COUNT Routine 12/16/2024 5:01 AM EDT Unspecified atrial fibrillation (CMS/HCC V24, CMS/HCC V28) Essential (primary) hypertension PROTHROMBIN TIME WITH INR Routine 12/16/2024 5:01 AM EDT Unspecified atrial fibrillation (CMS/HCC V24, CMS/HCC V28) Essential (primary) hypertension PROTHROMBIN TIME WITH INR Routine 12/11/2024 6:52 [...] Results * (ABNORMAL) Prothrombin time with INR (12/22/2024 6:15 AM EDT) Only the most recent of12 resultswithin the time period is included. Protime 27.8(H) 10.6 - 13.9 sec LAB COAGULATION METHOD 12/22/2024 11:38 AM EDT [facility] INR 2.2 LAB COAGULATION METHOD 12/22/2024 11:38 AM EDT [facility] Blood Venous blood specimen / Unknown Venipuncture / Unknown 12/22/2024 6:15 AM EDT 12/22/2024 10:44 AM EDT us Eusebio Sprague MD LAB BLOOD ORDERABLES Final Resul t [facility] [address] [place] [address], * (ABNORMAL) Complete blood count (12/22/2024 6:15 AM EDT) Only the most recent of7 resultswithin the time period is included. WBC 4.7(L) 4.8 - 10.8 K/mcL LAB HEMETOLOGY METHOD 12/22/2024 11:59 AM EDT [facility] RBC 3.70(L) 3.80 - 4.80 M/mcL LAB HEMETOLOGY METHOD 12/22/2024 11:59 AM [facility] Hemoglobin 11.3(L) 11.5 - 16.0 g/dL LAB HEMETOLOGY METHOD 12/22/2024 11:59 AM [facility] Hematocrit 36.4 35.0 - 47.0 % LAB HEMETOLOGY METHOD 12/22/2024 11:59 AM [facility] MCV 99.5(H) 79.0 - 98.0 FL LAB HEMETOLOGY METHOD 12/22/2024 11:59 AM [facility] MCH 30.9 27.0 - 32.0 pcg LAB HEMETOLOGY METHOD 12/22/2024 11:59 AM [facility] MCHC 31.0(L) 32.0 - 37.0 g/dL LAB HEMETOLOGY METHOD 12/22/2024 11:59 AM [facility] RDW 13.9 11.0 - 15.0 % LAB HEMETOLOGY METHOD 12/22/2024 11:59 AM [facility] Platelets 153 130 - 400 K/mcL LAB HEMETOLOGY METHOD 12/22/2024 11:59 AM [facility] MPV 10.1 7.0 - 11.0 FL LAB HEMETOLOGY METHOD 12/22/2024 11:59 AM [facility] NRBC 0.0 <1.0 % LAB HEMETOLOGY METHOD 12/22/2024 11:59 AM [facility] NRBC Absolute 0.00 <0.10 K/mcL LAB HEMETOLOGY METHOD 12/22/2024 11:59 AM [facility] Blood Venous blood specimen / Unknown Venipuncture / Unknown 12/22/2024 6:15 AM EDT 12/22/2024 10:44 AM EDT Eusebio Sprague MD LAB BLOOD ORDERABLES Final Resul t [facility] [address] [place] [address], * (ABNORMAL) Basic metabolic panel (12/22/2024 6:15 AM EDT) Only the most recent of5 resultswithin the time period is included. Sodium 140 133 - 145 mmol/L LAB CHEMISTRY METHOD 12/22/2024 1:13 PM T [facility] Potassium 4.8 3.5 - 5.5 mmol/L LAB CHEMISTRY METHOD 12/22/2024 1:13 PM [facility] Chloride 109 96 - 110 mmol/L LAB CHEMISTRY METHOD 12/22/2024 1:13 PM [facility] CO2 25 21 - 32 mmol/L LAB CHEMISTRY METHOD [facility]24 [facility] An[facility] Gap 6 3 - 11 LAB CHEMISTRY METHOD 12/22/2024 1:13 PM [facility] Glucose 72 70 - 100 mg/dL LAB CHEMISTRY METHOD 12/22/2024 1:13 PM [facility] BUN 33(H) 5 - 25 mg/dL LAB CHEMISTRY METHOD 12/22/2024 1:13 PM [facility] Creatinine 1.53(H) 0.50 - 1.10 mg/dL LAB CHEMISTRY METHOD 12/22[facility]2024 1[facility] eGFR 33(L) >=60 mL/min/1. 73m2 LAB CHEMISTRY METHOD 12/22/2024 1:13 PM [facility] Comment:Calculation based on the Chronic Kidney Disease Epidemiology Collaboration (CKD-EPI) equation refit without adjustment for race. BUN/Creatinine Ratio 21.6 LAB CHEMISTRY METHOD 12/22/2024 1:13 PM [facility] Calcium 8.7 8.5 - 10.5 mg/dL LAB CHEMISTRY METHOD 12/22/2024 1:13 PM EDT [facility] Blood Venous blood specimen / Unknown Venipuncture / Unknown 12/22/2024 6:15 AM EDT 12/22/2024 10:44 AM EDT us Eusebio Sprague MD LAB BLOOD ORDERABLES Final Resul t [facility] [address] [place] [address], [place] [phone] * (ABNORMAL) Urinalysis with reflex microscopic (12/10/2024 4:30 AM EDT) Specific [place] Urine 1.014 1.003 - 1.030 LAB URINALYSIS - AUTOMATED METHOD 12/11/2024 10:24 AM [facility] pH, Urine 5.5 5.0 - [...] - AUTOMATED METHOD 12/11/2024 10:24 AM EDT [facility] Bilirubin, Urine Negative Negative LAB URINALYSIS - AUTOMATED METHOD 12/11/2024 10:24 AM EDT [facility] Blood, Urine Small(A) Negative LAB URINALYSIS [...] 12/11/2024 10:24 AM [facility] Hyaline Casts, Urine 2.4 0 - 3 /LPF LAB URINALYSIS - AUTOMATED METHOD 12/11/2024 10:24 AM [facility] Urine Urine specimen obtained by clean catch procedure / Unknown 12/10/2024 4:30 AM EDT 12/11/2024 9:17 AM EDT us Eusebio Sprague MD LAB URINE ORDERABLES Final Resul t [facility] [address] [place] [address], * (ABNORMAL) Culture urine (12/10/2024 4:30 AM EDT) Culture, Urine >=100,000 CFU/mL Enterococcus faecium(A) RAMA 12/14/2024 8:27 AM EDT [facility] Comment: Edited result: Previously reported as Gram Positive Cocci on 12/12/2024 at 1105 EDT. Culture, Urine 10,000-49,000 CFU/mL Enterococcus faecalis(A) RAMA 12/14/2024 8:27 AM EDT [facility] Comment: The organism value for this result has been updated. These results have been appended to the previously preliminary verified report. Urine Urine specimen obtained by clean catch procedure / Unknown 12/10/2024 4:30 AM EDT 12/11/2024 9:17 AM EDT Narrative [facility] - 12/14/2024 8:27 AM [...] RAMA <=0.5 ug/ml: Susceptible Enterococcus faecium Tetracycline RMAA <=1 ug/ml: Susceptible Enterococcus faecium Nitrofurantoin RAMA [...] Enterococcus faecalis Nitrofurantoin RAMA <=16 ug/ml: Susceptible us Eusebio Sprague MD LAB MICROBIOLOGY - GENERAL ORDER GONZALEZ Final Result [facility] [address] [place] [address], * Vitamin B12 and folate (11/24/2024 6:19 AM EDT) Vitamin B-12 470 250 - 900 pcg/mL LAB CHEMISTRY METHOD 11/24/2024 11:28 AM EDT [facility] Folate 6.3 2.8 - 17.0 ng/ml LAB CHEMISTRY METHOD 11/24/2024 11:28 AM EDT [facility] Blood Venous blood specimen / Unknown Venipuncture / Unknown 11/24/2024 6:19 AM EDT 11/24/2024 10:10 AM EDT us Reena FOSTER LAB BLOOD ORDERABLES Final Resu lt Performing Organization Address City/[facility]/ZIP Co de Phone Number [facility] [address] [place] [address], [place] [phone] * (ABNORMAL) Vitamin D 25 hydroxy (11/24/2024 6:19 AM EDT) Only the most recent of2 resultswithin the time period is included. Vit D, 25-Hydroxy 29.0(L) 30.0 - 80.0 ng/mL LAB CHEMISTRY METHOD 11/24/2024 11:59 AM EDT [facility] Blood Venous blood specimen / Unknown Venipuncture / Unknown 11/24/2024 6:19 AM EDT 11/24/2024 10:10 AM EDT us Reena FOSTER LAB BLOOD ORDERABLES Final Resu lt Performing Organization Address City/[facility]/ZIP Co de Phone Number [facility] [address] [place] [address], [place] [phone] * (ABNORMAL) Thyroid stimulating hormone (11/24/2024 6:19 AM EDT) Only the most recent of2 resultswithin the time period is included. TSH 4.43(H) 0.40 - 4.00 mcIU/mL LAB CHEMISTRY METHOD 11/24/2024 11:59 AM EDT [facility] Blood Venous blood specimen / Unknown Venipuncture / Unknown 11/24/2024 6:19 AM EDT 11/24/2024 10:10 AM EDT us Reena FOSTER LAB BLOOD ORDERABLES Final Resu lt Performing Organization Address [facility]/ZIP Co de Phone Number [facility] [address] [place] [address], [place] [phone] * Magnesium (11/24/2024 6:19 AM EDT) Only the most recent of2 resultswithin the time period is included. [facility] Magnesium 2.4 1.9 - 2.6 mg/dL LAB CHEMISTRY METHOD 11/24/2024 11:02 AM EDT [facility] Blood Venous blood specimen / Unknown Venipuncture / Unknown 11/24/2024 6:19 AM EDT 11/24/2024 10:10 AM EDT us Reena FOSTER LAB BLOOD ORDERABLES Final Resu lt Performing Organization Address [facility] de Phone Number [facility] [address] [place] [address], [place] [phone] * (ABNORMAL) Comprehensive metabolic panel (11/24/2024 6:19 AM EDT) Only the most recent of2 resultswithin the time period is included. [facility] Sodium 139 133 - 145 mmol/L LAB CHEMISTRY METHOD 11/24/2024 11:28 AM EDT [facility] Potassium 5.1 3.5 - 5.5 mmol/L LAB CHEMISTRY METHOD 11/24/2024 11:28 AM EDT [facility] Chloride 108 96 - 110 mmol/L LAB CHEMISTRY METHOD 11/24/2024 11:28 AM EDT [facility] CO2 25 21 - 32 mmol/L LAB CHEMISTRY METHOD 11/24/2024 11:28 AM EDT [facility] Anion Gap 6 3 - 11 LAB CHEMISTRY METHOD 11/24/2024 11:28 AM EDT [facility] Glucose 66(L) 70 - 100 mg/dL LAB CHEMISTRY METHOD 11/24/2024 11:28 AM [facility] BUN 45(H) 5 - 25 mg/dL LAB CHEMISTRY METHOD 11/24/2024 11:28 AM [facility] Creatinine 1.48(H) 0.50 - 1.10 mg/dL LAB CHEMISTRY METHOD 11/24/2024 11:28 AM [facility] eGFR 34(L) >=60 mL/min/1. 73m2 LAB CHEMISTRY METHOD 11/24/2024 11:28 AM [facility] Comment:Calculation based on the Chronic Kidney Disease Epidemiology Collaboration (CKD-EPI) equation refit without adjustment for race. BUN/Creatinine Ratio 30.4 LAB CHEMISTRY METHOD 11/24/2024 11:28 AM [facility] Calcium 8.1(L) 8.5 - 10.5 mg/dL LAB CHEMISTRY METHOD 11/24/2024 11:28 AM [facility] AST (SGOT) 51(H) 10 - 42 unit/L LAB CHEMISTRY METHOD 11/24/2024 11:28 AM [facility] ALT (SGPT) 58 10 - 60 unit/L LAB CHEMISTRY METHOD 11/24/2024 11:28 AM [facility] Alkaline Phosphatase 119 42 - 121 unit/L LAB CHEMISTRY METHOD 11/24/2024 11:28 AM [facility] Total Protein 4.8(L) 6.0 - 8.0 g/dL LAB CHEMISTRY METHOD 11/24/2024 11:28 AM [facility] Albumin 2.3(L) 3.2 - 5.0 g/dL LAB CHEMISTRY METHOD 11/24/2024 11:28 AM [facility] Total Bilirubin 0.3 0.0 - 1.4 mg/dL LAB CHEMISTRY METHOD 11/24/2024 11:28 AM [facility] Blood Venous blood specimen / Unknown Venipuncture / Unknown 11/24/2024 6:19 AM EDT 11/24/2024 10:10 AM EDT Reena FOSTER LAB BLOOD ORDERABLES Final Resu lt Performing Organization Address [facility]/ZIP Co de Phone Number [facility] [address] [place] [address], [place] [phone] * Folate (11/05/2024 6:51 AM EDT) Folate 8.7 2.8 - 17.0 ng/ml LAB CHEMISTRY METHOD 11/05/2024 12:33 PM EDT [facility] Blood Venous blood specimen / Unknown Venipuncture / Unknown 11/05/2024 6:51 AM EDT 11/05/2024 10:39 AM EDT Eusebio Sprague MD LAB BLOOD ORDERABLES Final Resul t Performing Organization Address [facility] Co de Phone Number [facility] [address] [place] [address], [place] [phone] * Vitamin B12 (11/05/2024 6:51 AM EDT) Vitamin B-12 387 250 - 900 pcg/mL LAB CHEMISTRY METHOD 11/05/2024 12:33 PM EDT [facility] Blood Venous blood specimen / Unknown Venipuncture / Unknown 11/05/2024 6:51 AM EDT 11/05/2024 10:39 AM EDT Eusebio Sprague MD LAB BLOOD ORDERABLES Final Resul t Performing Organization Address City/[facility]/ZIP Co de Phone Number [facility] [address] [place] [address], [place] [phone] from Last 3 Months Insurance [employer] Care Teams Tracer Bullet Charging Machine Operator Relationship Specialty Start Date End Date Eusebio Sprague MD [address] [place] [address] [address] [place] [address] PCP - General Geriatric Medicine 11/05/24
--- OUTSIDE RECORDS SUMMARY | 2025-01-01 10:36 | XMS_ITS | Clinical Summary ---
Author Organization [facility] [address] [place] [address] Phone Care Team Providers Care Vice President [employer]idential [employer] Name Role Phone Ruben Dick Primary Care Provider [phone] Allergies No known active allergies Medications amiodarone [...] to complete this topic Insurance Care Teams Vice President [employer]idential [employer] Relationship Specialty Start Date End Date Ruben Dick PA [address] [place] [address], [address] [place] [address] PCP - General Physician Copy Technician 07/19/21
--- OUTSIDE RECORDS SUMMARY | 2025-01-01 10:36 | XMS_ITS | Encounter Summary ---
Author Organization [employer] Address [address] [place] [address] Care Team Providers Care Registered Pharmacy Technician Name Role Phone Eusebio Sprague MD Primary Care Provider [phone] Encounter Details Date Type Department Care Team (Late st Contact Info) Description 11/15/2024 Lab Requisition [facility] - Main Lab [address] [facility] [place] [address] Eusebio Sprague MD [address] [place], [place] [id number] Unspecified atrial fibrillation (CMS/HCC V24, CMS/HCC V28); [...] unspecified documented in this encounter Care Teams Registered Pharmacy Technician Relationship Specialty Start Date End Date Eusebio Sprague MD [address] [place], [place] [phone] PCP - General Geriatric Medicine 11/05/24 documented as of this encounter
--- OUTSIDE RECORDS SUMMARY | 2025-01-01 10:36 | XMS_ITS | Encounter Summary ---
Author Organization [employer] Address [address] [place] [address] Care Team Providers Care Supervisor Functional Testing Name Role Phone Eusebio Sprague MD Primary Care Provider [phone] Encounter Details Date Type Department Care Team (Late st Contact Info) Description 12/05/2024 Lab Requisition [facility] - Main Lab [address] [facility] [address] [facility] [place] [address] Eusebio Sprague MD [address] [place], [place] [id number] Unspecified atrial fibrillation (CMS/HCC V24, CMS/HCC V28); [...] mmol/L LAB CHEMISTRY METHOD 12/08/2024 1:54 PM [facility] Potassium 5.1 3.5 - 5.5 mmol/L LAB CHEMISTRY METHOD 12/08/2024 1:54 PM [facility] Chloride 111(H) 96 - 110 mmol/L LAB CHEMISTRY METHOD 12/08/2024 1:54 PM [facility] CO2 23 21 - 32 mmol/L LAB CHEMISTRY METHOD 12/08/2024 1:54 PM [facility] Anion Gap 7 3 - 11 LAB CHEMISTRY METHOD 12/08/2024 1:54 PM [facility] Glucose 68(L) 70 - 100 mg/dL LAB CHEMISTRY METHOD 12/08/2024 1:54 PM [facility] BUN 34(H) 5 - 25 mg/dL LAB CHEMISTRY METHOD 12/08/2024 1:54 PM [facility] Creatinine 1.55(H) 0.50 - 1.10 mg/dL LAB CHEMISTRY METHOD 12/08/2024 1:54 PM [facility] eGFR 32(L) >=60 mL/min/1. 73m2 LAB CHEMISTRY METHOD 12/08/2024 1:54 PM [facility] Comment:Calculation based on the Chronic Kidney Disease Epidemiology Collaboration (CKD-EPI) equation refit without adjustment for race. BUN/Creatinine Ratio 21.9 LAB CHEMISTRY METHOD 12/08/2024 1:54 PM [facility] Calcium 8.8 8.5 - 10.5 mg/dL LAB CHEMISTRY METHOD 12/08/2024 1:54 PM [facility] Blood Venous blood specimen / Unknown Venipuncture / Unknown 12/08/2024 6:23 AM EDT 12/08/2024 10:07 AM EDT us Eusebio Sprague MD LAB BLOOD ORDERABLES Final Resul t [facility] [address] [place] [address], * (ABNORMAL) Complete blood count (12/08/2024 6:23 AM EDT) WBC 5.6 4.8 - 10.8 K/mcL LAB HEMETOLOGY METHOD 12/08/2024 11:03 AM EDT [facility] RBC 3.80 3.80 - 4.80 M/mcL LAB HEMETOLOGY METHOD [facility] Hemoglobin 11.8 11.5 - 16.0 g/dL LAB HEMETOLOGY METHOD 12/08/2024 11:03 AM [facility] Hematocrit 37.4 35.0 - 47.0 % LAB HEMETOLOGY METHOD 12/08/2024 11:03 AM [facility] MCV 99.2(H) 79.0 - 98.0 FL LAB HEMETOLOGY METHOD 12/08/2024 11:03 AM [facility] MCH 31.3 27.0 - 32.0 pcg LAB HEMETOLOGY METHOD 12/08/2024 11:03 AM [facility] MCHC 31.6(L) 32.0 - 37.0 g/dL LAB HEMETOLOGY METHOD 12/08/2024 11:03 AM [facility] RDW 14.4 11.0 - 15.0 % LAB HEMETOLOGY METHOD 12/08/2024 11:03 AM [facility] Platelets 176 130 - 400 K/mcL LAB HEMETOLOGY METHOD 12/08/2024 11:03 AM [facility] MPV 10.0 7.0 - [...] ORDERABLES Final Resul t Performing Organization Address [facility] Co de Phone Number [facility] [address] [place] [address], [place] [phone] * (ABNORMAL) Prothrombin time with INR (12/08/2024 6:23 AM EDT) Protime 35.3(H) 10.6 - 13.9 sec LAB COAGULATION METHOD 12/08/2024 10:47 AM EDT [facility] INR 2.9 LAB COAGULATION METHOD 12/08/2024 10:47 AM EDT [facility] Blood Venous blood specimen / Unknown Venipuncture / Unknown 12/08/2024 6:23 AM EDT 12/08/2024 10:07 AM EDT Eusebio Sprague MD LAB BLOOD ORDERABLES Final Resul t Performing Organization Address City/[facility]/ZIP Co de Phone Number [facility] [address] [place] [address], [place] [phone] documented in this encounter Visit Diagnoses Diagnosis Unspecified atrial fibrillation (CMS/HCC V24, CMS/HCC V28) Essential (primary) hypertension Unspecified essential hypertension documented in this encounter Care Teams Supervisor Functional Testing Relationship Specialty Start Date End Date Eusebio Sprague MD [address] [place] [address] [address] [place] [address] PCP - General Geriatric Medicine 11/05/24 documented as of this encounter
--- OUTSIDE RECORDS SUMMARY | 2025-01-01 10:36 | XMS_ITS | Encounter Summary ---
Author Organization [employer] Address [address] [place] [address] Care Team Providers Care Linoleum Tile Floor Layer Name Role Phone Eusebio Sprague MD Primary Care Provider [phone] Encounter Details Date Type Department Care Team (Late st Contact Info) Description 11/24/2024 Lab Requisition [facility] - Main Lab [address] [place] [address] Reena Salmon PA [address] [facility] [place] [place] [address] Heart failure, unspecified (CMS/HCC V24, CMS/HCC V28); [...] sec LAB COAGULATION METHOD 11/24/2024 10:32 AM [facility] INR 2.0 LAB COAGULATION METHOD 11/24/2024 10:32 AM [facility] Blood Venous blood specimen / Unknown Venipuncture / Unknown 11/24/2024 6:19 AM EDT 11/24/2024 10:10 AM EDT us Reena FOSTER LAB BLOOD ORDERABLES Final Resu lt Performing Organization Address City/[facility]/ZIP Co de Phone Number [facility] [address] [place] [address], [place] [phone] * Magnesium (11/24/2024 6:19 AM EDT) Pathologist [facility] Magnesium 2.4 1.9 - 2.6 mg/dL LAB CHEMISTRY METHOD 11/24/2024 11:02 AM EDT [facility] Blood Venous blood specimen / Unknown Venipuncture / Unknown 11/24/2024 6:19 AM EDT 11/24/2024 10:10 AM EDT us Reena FOSTER LAB BLOOD ORDERABLES Final Resu lt Performing Organization Address [facility]/ZIP Co de Phone Number [facility] [address] [place] [address], [place] [phone] * (ABNORMAL) Vitamin D 25 hydroxy (11/24/2024 6:19 AM EDT) [facility] Vit D, 25-Hydroxy 29.0(L) 30.0 - 80.0 ng/mL LAB CHEMISTRY METHOD 11/24/2024 11:59 AM EDT [facility] Blood Venous blood specimen / Unknown Venipuncture / Unknown 11/24/2024 6:19 AM EDT 11/24/2024 10:10 AM EDT us Reena FOSTER LAB BLOOD ORDERABLES Final Resu lt Performing Organization Address City/[facility]/ZIP Co de Phone Number [facility] [address] [place] [address], [place] [phone] * (ABNORMAL) Thyroid stimulating hormone (11/24/2024 6:19 AM EDT) [facility] TSH 4.43(H) 0.40 - 4.00 mcIU/mL LAB CHEMISTRY METHOD 11/24/2024 11:59 AM EDT [facility] Blood Venous blood specimen / Unknown Venipuncture / Unknown 11/24/2024 6:19 AM EDT 11/24/2024 10:10 AM EDT us Reena FOSTER LAB BLOOD ORDERABLES Final Resu lt Performing Organization Address [facility]/ZIP Co de Phone Number [facility] [address] [place] [address], [place] [phone] * Vitamin B12 and folate (11/24/2024 6:19 AM EDT) [facility] Vitamin B-12 470 250 - 900 pcg/mL LAB CHEMISTRY METHOD 11/24/2024 11:28 AM EDT [facility] Folate 6.3 2.8 - 17.0 ng/ml LAB CHEMISTRY METHOD 11/24/2024 11:28 AM EDT [facility] Blood Venous blood specimen / Unknown Venipuncture / Unknown 11/24/2024 6:19 AM EDT 11/24/2024 10:10 AM EDT us Reena FOSTER LAB BLOOD ORDERABLES Final Resu lt Performing Organization Address City/[facility]/ZIP Co de Phone Number [facility] [address] [place] [address], [place] [phone] * (ABNORMAL) Comprehensive metabolic panel (11/24/2024 6:19 AM EDT) [facility] Sodium 139 133 - 145 mmol/L LAB CHEMISTRY METHOD 11/24/2024 11:28 AM EDT [facility] Potassium 5.1 3.5 - 5.5 mmol/L LAB CHEMISTRY METHOD 11/24/2024 11:28 AM EDT [facility] Chloride 108 96 - 110 mmol/L LAB CHEMISTRY METHOD 11/24/2024 11:28 AM [facility] CO2 25 21 - 32 mmol/L LAB CHEMISTRY METHOD 11/24/2024 11:28 AM [facility] Anion Gap 6 3 - 11 LAB CHEMISTRY METHOD 11/24/2024 11:28 AM [facility] Glucose 66(L) 70 - 100 mg/dL LAB CHEMISTRY METHOD 11/24/2024 11:28 AM [facility] BUN 45(H) 5 - 25 mg/dL LAB CHEMISTRY METHOD 11/24/2024 11:28 AM [facility] Creatinine 1.48(H) 0.50 - 1.10 mg/dL LAB CHEMISTRY METHOD 11/24/2024 11:28 AM [facility] eGFR 34(L) >=60 mL/min/1. 73m2 LAB CHEMISTRY METHOD 11/24/2024 11:28 AM [facility] Comment:Calculation based on the Chronic Kidney Disease Epidemiology Collaboration (CKD-EPI) equation refit without adjustment for race. BUN/Creatinine Ratio 30.4 LAB CHEMISTRY METHOD 11/24/2024 11:28 AM [facility] Calcium 8.1(L) 8.5 - 10.5 mg/dL LAB CHEMISTRY METHOD 11/24/2024 11:28 AM [facility] AST (SGOT) 51(H) 10 - 42 unit/L LAB CHEMISTRY METHOD 11/24/2024 11:28 AM [facility] ALT (SGPT) 58 10 - 60 unit/L LAB CHEMISTRY METHOD 11/24/2024 11:28 AM [facility] Alkaline Phosphatase 119 42 - 121 unit/L LAB CHEMISTRY METHOD 11/24/2024 11:28 AM [facility] Total Protein 4.8(L) 6.0 - 8.0 g/dL LAB CHEMISTRY METHOD 11/24/2024 11:28 AM EDT [facility] Albumin 2.3(L) 3.2 - 5.0 g/dL LAB CHEMISTRY METHOD 11/24/2024 11:28 AM EDT [facility] Total Bilirubin 0.3 0.0 - 1.4 mg/dL LAB CHEMISTRY METHOD 11/24/2024 11:28 AM T [facility] Blood Venous blood specimen / Unknown Venipuncture / Unknown 11/24/2024 6:19 AM EDT 11/24/2024 10:10 AM EDT us Reena FOSTER LAB BLOOD ORDERABLES Final Resu lt [facility] [address] [place] [address], [place] [phone] * (ABNORMAL) Complete blood count (11/24/2024 6:19 AM EDT) WBC 6.4 4.8 - 10.8 K/mcL LAB HEMETOLOGY METHOD 11/24/2024 10:32 AM [facility] RBC 3.30(L) 3.80 - 4.80 M/mcL LAB HEMETOLOGY METHOD 11/24/2024 10:32 AM [facility] Hemoglobin 10.6(L) 11.5 - 16.0 g/dL LAB HEMETOLOGY METHOD 11/24/2024 10:32 AM T [facility] Hematocrit 33.6(L) 35.0 - 47.0 % LAB HEMETOLOGY METHOD 11/24/2024 10:32 AM [facility] MCV 100.9(H) 79.0 - 98.0 FL LAB HEMETOLOGY METHOD 11/24/2024 10:32 AM [facility] MCH 31.8 27.0 - 32.0 pcg LAB HEMETOLOGY METHOD 11/24/2024 10:32 AM EDT [facility] MCHC 31.5(L) 32.0 - 37.0 g/dL LAB HEMETOLOGY METHOD 11/24/2024 10:32 AM EDT [facility] RDW 13.9 11.0 - 15.0 % LAB HEMETOLOGY METHOD 11/24/2024 10:32 AM EDT [facility] Platelets 223 130 - 400 K/mcL LAB HEMETOLOGY METHOD 11/24/2024 10:32 AM EDT [facility] MPV 10.0 7.0 - 11.0 FL LAB HEMETOLOGY METHOD 11/24/2024 10:32 AM EDT [facility] NRBC 0.0 <1.0 % LAB HEMETOLOGY METHOD 11/24/2024 10:32 AM EDT [facility] NRBC Absolute 0.00 <0.10 K/mcL LAB HEMETOLOGY METHOD 11/24/2024 10:32 AM EDT [facility] Blood Venous blood specimen / Unknown Venipuncture / Unknown 11/24/2024 6:19 AM EDT 11/24/2024 10:10 AM EDT us Reena FOSTER LAB BLOOD ORDERABLES Final Resu lt [facility] [address] [place] [address], documented in this encounter Visit Diagnoses Diagnosis Heart failure, unspecified (CMS/HCC V24, CMS/HCC V28) Heart failure, unspecified Vitamin D deficiency, unspecified Hypothyroidism, unspecified Unspecified atrial fibrillation (CMS/HCC V24, CMS/HCC V28) documented in this encounter Care Teams Linoleum Tile Floor Layer Relationship Specialty Start Date End Date Eusebio Sprague MD [address] [place], [place] [id number] [place] [address] PCP - General Geriatric Medicine 11/05/24 documented as of this encounter
--- OUTSIDE RECORDS SUMMARY | 2025-01-01 10:36 | XMS_ITS | Encounter Summary ---
Author Organization [employer] Address [address] [place] [address] Care Team Providers Care Lmsw Name Role Phone Eusebio Sprague MD Primary Care Provider [phone] Encounter Details Date Type Department Care Team (Late st Contact Info) Description 12/03/2024 Lab Requisition [facility] - Main Lab [address] [facility] [place] [address] Eusebio Sprague MD [address] [place] [address] Unspecified atrial fibrillation (CMS/HCC V24, CMS/HCC V28) [...] sec LAB COAGULATION METHOD 12/04/2024 9:04 AM [facility] INR 2.4 LAB COAGULATION METHOD 12/04/2024 9:04 AM [facility] Blood Venous blood specimen / Unknown Venipuncture / Unknown 12/04/2024 6:47 AM EDT 12/04/2024 8:37 AM EDT Eusebio Sprague MD LAB BLOOD ORDERABLES Final Resul t [facility] ([facility]) [facility] [address] [place] [address], documented in this encounter Visit Diagnoses Diagnosis Unspecified atrial fibrillation (CMS/HCC V24, CMS/HCC V28) documented in this encounter Care Teams Lmsw Relationship Specialty Start Date End Date Eusebio Sprague MD [address] [place] [address] [address] [place] [address] PCP - General Geriatric Medicine 11/05/24 documented as of this encounter
--- OUTSIDE RECORDS SUMMARY | 2025-01-01 10:36 | XMS_ITS | Encounter Summary ---
Author Organization [employer] Address [address] [place] [address] Care Team Providers Care Technology Education Instructor Name Role Phone Eusebio Sprague MD Primary Care Provider [phone] Encounter Details Date Type Department Care Team (Late st Contact Info) Description 12/11/2024 Lab Requisition [facility] - Main Lab [address] [facility] [place] [address] Eusebio Sprague MD [address] [place], [place] [id number] Frequency of micturition Social History Tobacco Use [...] reflex microscopic (12/10/2024 4:30 AM EDT) Specific [place] Urine 1.014 1.003 - 1.030 LAB URINALYSIS - AUTOMATED METHOD 12/11/2024 10:24 AM EDT [facility] pH, Urine 5.5 5.0 - 8.0 pH LAB URINALYSIS - AUTOMATED METHOD 12/11/2024 10:[address] [facility] Leukocytes, Urine Large(A) Negative LAB URINALYSIS - AUTOMATED METHOD 12/11/2024 10:[address] [facility] Nitrite, Urine Negative Negative LAB URINALYSIS - AUTOMATED METHOD 12/11/2024 10:[address] [facility] Protein, Urine Trace <=Trace mg/dL LAB URINALYSIS - AUTOMATED METHOD 12/11/2024 10:[address] [facility] Glucose, Urine Negative Negative mg/dL LAB URINALYSIS - AUTOMATED METHOD 12/11/2024 10:[address] [facility] Ketones, Urine Negative Negative mg/dL LAB URINALYSIS - AUTOMATED METHOD 12/11/2024 10:[address] [facility] Urobilinogen, Urine 0.2 0.2 - 1.0 mg/dL LAB URINALYSIS - AUTOMATED METHOD 12/11/2024 10:[address] [facility] Bilirubin, Urine Negative Negative LAB URINALYSIS - AUTOMATED METHOD 12/11/2024 10:[address] [facility] Blood, Urine Small(A) Negative LAB URINALYSIS - AUTOMATED METHOD 12/11/2024 10:[address] [facility] RBC, Urine 7.1(H) 0 - 4 /HPF LAB URINALYSIS - AUTOMATED METHOD 12/11/2024 10:[address] [facility] WBC, Urine 990.7(H) 0 - 4 /HPF LAB URINALYSIS - AUTOMATED METHOD 12/11/2024 10:[address] [facility] Squamous Epithelial, Urine 41 0 - 60 /LPF LAB URINALYSIS - AUTOMATED METHOD 12/11/2024 10:[address] [facility] Bacteria, Urine Many(A) Negative /HPF LAB URINALYSIS - AUTOMATED METHOD 12/11/2024 10:24 AM EDT [facility] Hyaline Casts, Urine 2.4 0 - 3 /LPF LAB URINALYSIS - AUTOMATED METHOD 12/11/2024 10:24 AM EDT [facility] Urine Urine specimen obtained by clean catch procedure / Unknown 12/10/2024 4:30 AM EDT 12/11/2024 9:17 AM EDT us Eusebio Sprague MD LAB URINE ORDERABLES Final Resul t [facility] [address] [place] [address], * (ABNORMAL) Culture urine (12/10/2024 4:30 AM EDT) Culture, Urine >=100,000 CFU/mL Enterococcus faecium(A) RAMA 12/14/2024 8:27 AM EDT [facility] Comment: Edited result: Previously reported as Gram Positive Cocci on 12/12/2024 at 1105 EDT. Culture, Urine 10,000-49,000 CFU/mL Enterococcus faecalis(A) RAMA 12/14/2024 8:27 AM EDT [facility] Comment: The organism value for this result has been updated. These results have been appended to the previously preliminary verified report. Urine Urine specimen obtained by clean catch procedure / Unknown 12/10/2024 4:30 AM EDT 12/11/2024 9:17 AM EDT Narrative [facility] - 12/14/2024 8:27 AM [...] MICROBIOLOGY - GENERAL ORDER GONZALEZ Final Result [facility] ([facility]) [facility] [address] [place] [address], documented in this encounter Visit Diagnoses Diagnosis Frequency of micturition Urinary frequency documented in this encounter Care Teams Technology Education Instructor Relationship Specialty Start Date End Date Eusebio Sprague MD [address] [place] [address] [address] [place] [address] PCP - General Geriatric Medicine 11/05/24 documented as of this encounter
--- OUTSIDE RECORDS SUMMARY | 2025-01-01 10:36 | XMS_ITS | Encounter Summary ---
Author Organization [employer] Address [address] [place] [address] Care Team Providers Care Mechanical Engineering Technician Name Role Phone Eusebio Sprague MD Primary Care Provider [phone] Encounter Details Date Type Department Care Team (Late st Contact Info) Description 12/10/2024 Lab Requisition [facility] - Main Lab [address] [facility] [place] [address] Eusebio Sprague MD [address] [place], [place] [phone] Unspecified atrial fibrillation (CMS/HCC V24, CMS/HCC V28) [...] sec LAB COAGULATION METHOD 12/11/2024 10:10 AM [facility] INR 2.2 LAB COAGULATION METHOD 12/11/2024 10:10 AM [facility] Blood Venous blood specimen / Unknown Venipuncture / Unknown 12/11/2024 6:52 AM EDT 12/11/2024 9:39 AM EDT Eusebio Sprague MD LAB BLOOD ORDERABLES Final Resul t [facility] ([facility]) [facility] [address] [place] [address], documented in this encounter Visit Diagnoses Diagnosis Unspecified atrial fibrillation (CMS/HCC V24, CMS/HCC V28) documented in this encounter Care Teams Mechanical Engineering Technician Relationship Specialty Start Date End Date Eusebio Sprague MD [address] [place] [address] [address] [place] [address] PCP - General Geriatric Medicine 11/05/24 documented as of this encounter
--- OUTSIDE RECORDS SUMMARY | 2025-01-01 10:36 | XMS_ITS | Encounter Summary ---
Author Organization [employer] Address [address] [place] [address] Care Team Providers Care Director Of Digital Technology Name Role Phone Eusebio Sprague MD Primary Care Provider [phone] Encounter Details Date Type Department Care Team (Late st Contact Info) Description 12/20/2024 Lab Requisition [facility] - Main Lab [address] [place] [address] Eusebio Sprague MD [address] [place], [place] [id number] Unspecified atrial fibrillation (CMS/HCC V24, CMS/HCC V28); [...] Diagnosis Comments PROTHROMBIN TIME WITH INR Routine 12/22/2024 6:15 AM EDT Unspecified atrial fibrillation (CMS/HCC V24, CMS/HCC V28) Essential (primary) hypertension COMPLETE BLOOD COUNT Routine 12/22/2024 6:15 AM EDT Unspecified atrial fibrillation (CMS/HCC V24, CMS/HCC V28) Essential (primary) hypertension BASIC METABOLIC PANEL Routine 12/22/2024 6:15 AM EDT Unspecified atrial fibrillation (CMS/HCC V24, CMS/HCC V28) Essential (primary) hypertension documented in this encounter Results * (ABNORMAL) Basic metabolic panel (12/22/2024 6:15 AM EDT) Sodium 140 133 - 145 mmol/L LAB CHEMISTRY METHOD 12/22/2024 1:13 PM [facility] Potassium 4.8 3.5 - 5.5 mmol/L LAB CHEMISTRY METHOD 12/22/2024 1:13 PM [facility] Chloride 109 96 - 110 mmol/L LAB CHEMISTRY METHOD 12/22/2024 1:13 PM [facility] CO2 25 21 - 32 mmol/L LAB CHEMISTRY METHOD 12/22/2024 1:13 PM [facility] Anion Gap 6 3 - 11 LAB CHEMISTRY METHOD 12/22/2024 1:13 PM [facility] Glucose 72 70 - 100 mg/dL LAB CHEMISTRY METHOD 12/22/2024 1:13 PM [facility] BUN 33(H) 5 - 25 mg/dL LAB CHEMISTRY METHOD 12/22/2024 1:13 PM [facility] Creatinine 1.53(H) 0.50 - 1.10 mg/dL LAB CHEMISTRY METHOD 12/22/2024 1:13 PM [facility] eGFR 33(L) >=60 mL/min/1. 73m2 LAB CHEMISTRY METHOD 12/22/2024 1:13 PM [facility] Comment:Calculation based on the Chronic Kidney Disease Epidemiology Collaboration (CKD-EPI) equation refit without adjustment for race. BUN/Creatinine Ratio 21.6 LAB CHEMISTRY METHOD 12/22/2024 1:13 PM [facility] Calcium 8.7 8.5 - 10.5 mg/dL LAB CHEMISTRY METHOD 12/22/2024 1:13 PM [facility] Blood Venous blood specimen / Unknown Venipuncture / Unknown 12/22/2024 6:15 AM EDT 12/22/2024 10:44 AM EDT us Fahim A Celestine MD LAB BLOOD ORDERABLES Final Resul t [facility] [address] [place] [address], * (ABNORMAL) Complete blood count (12/22/2024 6:15 AM EDT) WBC 4.7(L) 4.8 - 10.8 K/mcL LAB HEMETOLOGY METHOD 12/22/2024 11:59 AM EDT [facility] RBC 3.70(L) 3.80 - 4.80 M/mcL LAB HEMETOLOGY METHOD 12/22/2024 11:59 AM EDT [facility] Hemoglobin 11.3(L) 11.5 - 16.0 g/dL LAB HEMETOLOGY METHOD 12/22/2024 11:59 AM EDT [facility] Hematocrit 36.4 35.0 - 47.0 % LAB HEMETOLOGY METHOD 12/22/2024 11:59 AM EDT [facility] MCV 99.5(H) 79.0 - 98.0 FL LAB HEMETOLOGY METHOD [facility] MCH 30.9 27.0 - 32.0 pcg LAB HEMETOLOGY METHOD 12/22/2024 11:59 AM EDT [facility] MCHC 31.0(L) 32.0 - 37.0 g/dL LAB HEMETOLOGY METHOD 12/22/2024 11:59 AM EDT [facility] RDW 13.9 11.0 - 15.0 % LAB HEMETOLOGY METHOD 12/22/2024 11:59 AM EDT [facility] Platelets 153 130 - 400 K/mcL LAB HEMETOLOGY METHOD 12/22/2024 11:59 AM EDT [facility] MPV 10.1 7.0 - 11.0 FL LAB HEMETOLOGY METHOD 12/22/2024 11:59 AM EDT [facility] NRBC 0.0 <1.0 % LAB HEMETOLOGY METHOD 12/22/2024 11:59 AM EDT [facility] NRBC Absolute 0.00 <0.10 K/mcL LAB HEMETOLOGY METHOD 12/22/2024 11:59 AM EDT [facility] Blood Venous blood specimen / Unknown Venipuncture / Unknown 12/22/2024 6:15 AM EDT 12/22/2024 10:44 AM EDT Eusebio Sprague MD LAB BLOOD ORDERABLES Final Resul t Performing Organization Address City/[facility]/ZIP Co de Phone Number [facility] [address] [place] [address], [place] [phone] * (ABNORMAL) Prothrombin time with INR (12/22/2024 6:15 AM EDT) Protime 27.8(H) 10.6 - 13.9 sec LAB COAGULATION METHOD 12/22/2024 11:38 AM EDT [facility] INR 2.2 LAB COAGULATION METHOD 12/22/2024 11:38 AM EDT [facility] Blood Venous blood specimen / Unknown Venipuncture / Unknown 12/22/2024 6:15 AM EDT 12/22/2024 10:44 AM EDT Eusebio Sprague MD LAB BLOOD ORDERABLES Final Resul t Performing Organization Address City/[facility]/ZIP Co de Phone Number [facility] [address] [place] [address], [place] [phone] documented in this encounter Visit Diagnoses Diagnosis Unspecified atrial fibrillation (CMS/HCC V24, CMS/HCC V28) Essential (primary) hypertension Unspecified essential hypertension documented in this encounter Care Teams Director Of Digital Technology Relationship Specialty Start Date End Date Eusebio Sprague MD [address] [place] [address] [address] [place] [address] PCP - General Geriatric Medicine 11/05/24 documented as of this encounter
--- OUTSIDE RECORDS SUMMARY | 2025-01-01 10:36 | XMS_ITS | Encounter Summary ---
Author Organization [employer] Address [address] [place] [address] Care Team Providers Care Hose Maker Name Role Phone Eusebio Sprague MD Primary Care Provider [phone] Encounter Details Date Type Department Care Team (Late st Contact Info) Description 11/26/2024 Lab Requisition [facility] - Main Lab [address] [facility] [place] [address] Eusebio Sprague MD [address] [place], [place] [phone] Unspecified atrial fibrillation (CMS/HCC V24, CMS/HCC V28) [...] sec LAB COAGULATION METHOD 11/27/2024 8:56 AM [facility] INR 2.0 LAB COAGULATION METHOD 11/27/2024 8:56 AM [facility] Blood Venous blood specimen / Unknown Venipuncture / Unknown 11/27/2024 6:40 AM EDT 11/27/2024 8:33 AM EDT Eusebio Sprague MD LAB BLOOD ORDERABLES Final Resul t [facility] [address] [place] [address], documented in this encounter Visit Diagnoses Diagnosis Unspecified atrial fibrillation (CMS/HCC V24, CMS/HCC V28) documented in this encounter Care Teams Hose Maker Relationship Specialty Start Date End Date Eusebio Sprague MD [address] [place] [address] [address] [place] [address] PCP - General Geriatric Medicine 11/05/24 documented as of this encounter
--- OUTSIDE RECORDS SUMMARY | 2025-01-01 10:36 | XMS_ITS | Encounter Summary ---
Author Organization [employer] Address [address] [place] [address] Care Team Providers Care Children Counselor Name Role Phone Eusebio Sprague MD Primary Care Provider [phone] Encounter Details Date Type Department Care Team (Late st Contact Info) Description 11/05/2024 Lab Requisition [facility] - Main Lab [address] [place] [address] Eusebio Sprague MD [address] [place], [place] [id number] Unspecified atrial fibrillation (CMS/HCC V24, CMS/HCC V28); [...] Results * Magnesium (11/05/2024 6:51 AM EDT) [facility] Magnesium 2.5 1.9 - 2.6 mg/dL LAB CHEMISTRY METHOD 11/05/2024 12:06 PM EDT [facility] Blood Venous blood specimen / Unknown Venipuncture / Unknown 11/05/2024 6:51 AM EDT 11/05/2024 10:39 AM EDT us Eusebio Sprague MD LAB BLOOD ORDERABLES Final Resul t Performing Organization Address City/[facility]/ZIP Co de Phone Number [facility] [address] [place] [address], [place] [phone] * Thyroid stimulating hormone (11/05/2024 6:51 AM EDT) [facility] TSH 2.71 0.40 - 4.00 mcIU/mL LAB CHEMISTRY METHOD 11/05/2024 12:58 PM EDT [facility] Blood Venous blood specimen / Unknown Venipuncture / Unknown 11/05/2024 6:51 AM EDT 11/05/2024 10:39 AM EDT us Eusebio Sprague MD LAB BLOOD ORDERABLES Final Resul t [facility] [address] [place] [address], [place] [phone] * Vitamin D 25 hydroxy (11/05/2024 6:51 AM EDT) [facility] Vit D, 25-Hydroxy 38.0 30.0 - 80.0 ng/mL LAB CHEMISTRY METHOD 11/05/2024 12:58 PM EDT [facility] Blood Venous blood specimen / Unknown Venipuncture / Unknown 11/05/2024 6:51 AM EDT 11/05/2024 10:39 AM EDT us Eusebio Sprague MD LAB BLOOD ORDERABLES Final Resul t Performing Organization Address [facility] Co de Phone Number [facility] [address] [place] [address], [place] [phone] * Vitamin B12 (11/05/2024 6:51 AM EDT) [facility] Vitamin B-12 387 250 - 900 pcg/mL LAB CHEMISTRY METHOD 11/05/2024 12:33 PM EDT [facility] Blood Venous blood specimen / Unknown Venipuncture / Unknown 11/05/2024 6:51 AM EDT 11/05/2024 10:39 AM EDT us Eusebio Sprague MD LAB BLOOD ORDERABLES Final Resul t Performing Organization Address [facility] de Phone Number [facility] [address] [place] [address], [place] [phone] * Folate (11/05/2024 6:51 AM EDT) [facility] Folate 8.7 2.8 - 17.0 ng/ml LAB CHEMISTRY METHOD 11/05/2024 12:33 PM EDT [facility] Blood Venous blood specimen / Unknown Venipuncture / Unknown 11/05/2024 6:51 AM EDT 11/05/2024 10:39 AM EDT us Eusebio Sprague MD LAB BLOOD ORDERABLES Final Resul t Performing Organization Address [facility] Co de Phone Number [facility] [address] [place] [address], [place] [phone] * (ABNORMAL) Prothrombin time with INR (11/05/2024 6:51 AM EDT) [facility] Protime 17.5(H) 10.6 - 13.9 sec LAB COAGULATION METHOD 11/05/2024 11:22 AM [facility] INR 1.4 LAB COAGULATION METHOD 11/05/2024 11:22 AM [facility] Blood Venous blood specimen / Unknown Venipuncture / Unknown 11/05/2024 6:51 AM EDT 11/05/2024 10:39 AM EDT us Eusebio Sprague MD LAB BLOOD ORDERABLES Final Resul t [facility] [address] [place] [address], [place] [phone] * (ABNORMAL) Comprehensive metabolic panel (11/05/2024 6:51 AM EDT) [facility] Sodium 140 133 - 145 mmol/L LAB CHEMISTRY METHOD 11/05/2024 12:33 PM [facility] Potassium 4.9 3.5 - 5.5 mmol/L LAB CHEMISTRY METHOD 11/05/2024 12:33 PM [facility] Chloride 109 96 - 110 mmol/L LAB CHEMISTRY METHOD 11/05/2024 12:33 PM [facility] CO2 25 21 - 32 mmol/L LAB CHEMISTRY METHOD 11/05/2024 12:33 PM [facility] Anion Gap 6 3 - 11 LAB CHEMISTRY METHOD 11/05/2024 12:33 PM [facility] Glucose 86 70 - 100 mg/dL LAB CHEMISTRY METHOD 11/05/2024 12:33 PM [facility] BUN 61(H) 5 - 25 mg/dL LAB CHEMISTRY METHOD 11/05/2024 12:33 PM [facility] Creatinine 1.64(H) 0.50 - 1.10 mg/dL LAB CHEMISTRY METHOD 11/05/2024 12:33 PM [facility] eGFR 30(L) >=60 mL/min/1. 73m2 LAB CHEMISTRY METHOD 11/05/2024 12:33 PM [facility] Comment:Calculation based on the Chronic Kidney Disease Epidemiology Collaboration (CKD-EPI) equation refit without adjustment for race. BUN/Creatinine Ratio 37.2 LAB CHEMISTRY METHOD 11/05/2024 12:33 PM [facility] Calcium 9.2 8.5 - 10.5 mg/dL LAB CHEMISTRY METHOD 11/05/2024 12:33 PM [facility] AST (SGOT) 43(H) 10 - 42 unit/L LAB CHEMISTRY METHOD 11/05/2024 12:33 PM [facility] ALT (SGPT) 47 10 - 60 unit/L LAB CHEMISTRY METHOD 11/05/2024 12:33 PM [facility] Alkaline Phosphatase 85 42 - 121 unit/L LAB CHEMISTRY METHOD 11/05/2024 12:33 PM [facility] Total Protein 5.6(L) 6.0 - 8.0 g/dL LAB CHEMISTRY METHOD 11/05/2024 12:33 PM [facility] Albumin 3.0(L) 3.2 - 5.0 g/dL LAB CHEMISTRY METHOD 11/05/2024 12:33 PM [facility] Total Bilirubin 0.9 0.0 - 1.4 mg/dL LAB CHEMISTRY METHOD 11/05/2024 12:33 PM [facility] Blood Venous blood specimen / Unknown Venipuncture / Unknown 11/05/2024 6:51 AM EDT 11/05/2024 10:39 AM EDT us Eusebio Sprague MD LAB BLOOD ORDERABLES Final Resul t [facility] [address] [place] [address], * (ABNORMAL) Complete blood count (11/05/2024 6:51 AM EDT) [facility] WBC 5.3 4.8 - 10.8 K/mcL LAB HEMETOLOGY METHOD 11/05/2024 11:32 AM [facility] RBC 3.60(L) 3.80 - 4.80 M/mcL LAB HEMETOLOGY METHOD 11/05/2024 11:32 AM [facility] Hemoglobin 11.7 11.5 - 16.0 g/dL LAB HEMETOLOGY METHOD 11/05/2024 11:32 AM [facility] Hematocrit 35.8 35.0 - 47.0 % LAB HEMETOLOGY METHOD 11/05/2024 11:32 AM [facility] MCV 100.8(H) 79.0 - 98.0 FL LAB HEMETOLOGY METHOD 11/05/2024 11:32 AM [facility] MCH 33.0(H) 27.0 - 32.0 pcg LAB HEMETOLOGY METHOD 11/05/2024 11:32 AM [facility] MCHC 32.7 32.0 - 37.0 g/dL LAB HEMETOLOGY METHOD 11/05/2024 11:32 AM [facility] RDW 14.0 11.0 - 15.0 % LAB HEMETOLOGY METHOD 11/05/2024 11:32 AM [facility] Platelets 159 130 - 400 K/mcL LAB HEMETOLOGY METHOD 11/05/2024 11:32 AM [facility] MPV 10.3 7.0 - 11.0 FL LAB HEMETOLOGY METHOD 11/05/2024 11:32 AM [facility] NRBC 0.0 <1.0 % LAB HEMETOLOGY METHOD 11/05/2024 11:32 AM [facility] NRBC Absolute 0.00 <0.10 K/mcL LAB HEMETOLOGY METHOD 11/05/2024 11:32 AM EDT [facility] Blood Venous blood specimen / Unknown Venipuncture / Unknown 11/05/2024 6:51 AM EDT 11/05/2024 10:39 AM EDT us Eusebio Sprague MD LAB BLOOD ORDERABLES Final Resul t [facility] [address] [place] [address], documented in this encounter Visit Diagnoses Diagnosis Unspecified atrial fibrillation (CMS/HCC V24, CMS/HCC V28) Nontoxic single thyroid nodule Nontoxic uninodular goiter Essential (primary) hypertension Unspecified essential hypertension Heart failure, unspecified (CMS/HCC V24, CMS/HCC V28) Heart failure, unspecified Vitamin D deficiency, unspecified Diverticulum of bladder documented in this encounter Care Teams Children Counselor Relationship Specialty Start Date End Date Eusebio Sprague MD [address] [place] [address] [address] [place] [address] PCP - General Geriatric Medicine 11/05/24 documented as of this encounter
--- OUTSIDE RECORDS SUMMARY | 2025-01-01 10:36 | XMS_ITS | Encounter Summary ---
Author Organization [employer] Address [address] [place] [address] Care Team Providers Care Winding Department Supervisor Name Role Phone Eusebio Sprague MD Primary Care Provider [phone] Encounter Details Date Type Department Care Team (Late st Contact Info) Description 12/12/2024 Lab Requisition [facility] - Main Lab [address] [place] [address] Eusebio Sprague MD [address] [place], [place] [id number] Unspecified atrial fibrillation (CMS/HCC V24, CMS/HCC V28); [...] Diagnosis Comments PROTHROMBIN TIME WITH INR Routine 12/16/2024 5:01 AM EDT Unspecified atrial fibrillation (CMS/HCC V24, CMS/HCC V28) Essential (primary) hypertension COMPLETE BLOOD COUNT Routine 12/16/2024 5:01 AM EDT Unspecified atrial fibrillation (CMS/HCC V24, CMS/HCC V28) Essential (primary) hypertension BASIC METABOLIC PANEL Routine 12/16/2024 5:01 AM EDT Unspecified atrial fibrillation (CMS/HCC V24, CMS/HCC V28) Essential (primary) hypertension documented in this encounter Results * (ABNORMAL) Basic metabolic panel (12/16/2024 5:01 AM EDT) Sodium 141 133 - 145 mmol/L LAB CHEMISTRY METHOD 12/16/2024 2:14 PM [facility] Potassium 4.7 3.5 - 5.5 mmol/L LAB CHEMISTRY METHOD 12/16/2024 2:14 PM [facility] Chloride 110 96 - 110 mmol/L LAB CHEMISTRY METHOD 12/16/2024 2:14 PM [facility] CO2 23 21 - 32 mmol/L LAB CHEMISTRY METHOD 12/16/2024 2:14 PM [facility] Anion Gap 8 3 - 11 LAB CHEMISTRY METHOD 12/16/2024 2:14 PM [facility] Glucose 80 70 - 100 mg/dL LAB CHEMISTRY METHOD 12/16/2024 2:14 PM [facility] BUN 38(H) 5 - 25 mg/dL LAB CHEMISTRY METHOD 12/16/2024 2:14 PM [facility] Creatinine 1.51(H) 0.50 - 1.10 mg/dL LAB CHEMISTRY METHOD 12/16/2024 2:14 PM [facility] eGFR 33(L) >=60 mL/min/1. 73m2 LAB CHEMISTRY METHOD 12/16/2024 2:14 PM [facility] Comment:Calculation based on the Chronic Kidney Disease Epidemiology Collaboration (CKD-EPI) equation refit without adjustment for race. BUN/Creatinine Ratio 25.2 LAB CHEMISTRY METHOD 12/16/2024 2:14 PM [facility] Calcium 8.7 8.5 - 10.5 mg/dL LAB CHEMISTRY METHOD 12/16/2024 2:14 PM [facility] Blood Venous blood specimen / Unknown Venipuncture / Unknown 12/16/2024 5:01 AM EDT 12/16/2024 11:06 AM EDT us Fahim A Celestine MD LAB BLOOD ORDERABLES Final Resul t [facility] [address] [place] [address], * (ABNORMAL) Complete blood count (12/16/2024 5:01 AM EDT) WBC 4.1(L) 4.8 - 10.8 K/mcL LAB HEMETOLOGY METHOD 12/16/2024 11:52 AM EDT [facility] RBC 3.60(L) 3.80 - 4.80 M/mcL LAB HEMETOLOGY METHOD 12/16[facility]2024 11[facility] Hemoglobin 11.3(L) 11.5 - 16.0 g/dL LAB HEMETOLOGY METHOD 12/16/2024 11:52 AM [facility] Hematocrit 36.7 35.0 - 47.0 % LAB HEMETOLOGY METHOD 12/16/2024 11:52 AM [facility] MCV 100.8(H) 79.0 - 98.0 FL LAB HEMETOLOGY METHOD 12/16/2024 11:52 AM [facility] MCH 31.0 27.0 - 32.0 pcg LAB HEMETOLOGY METHOD 12/16/2024 11:52 AM EDT [facility] MCHC 30.8(L) 32.0 - 37.0 g/dL LAB HEMETOLOGY METHOD 12/16/2024 11:52 AM [facility] RDW 14.0 11.0 - 15.0 % LAB HEMETOLOGY METHOD 12/16/2024 11:52 AM [facility] Platelets 168 130 - 400 K/mcL LAB HEMETOLOGY METHOD 12/16/2024 11:52 [facility] MPV 9.8 7.0 - 11.0 FL LAB HEMETOLOGY METHOD 12/16/2024 11:52 AM EDT [facility] NRBC 0.0 <1.0 % LAB HEMETOLOGY METHOD 12/16/2024 11:52 AM EDT [facility] NRBC Absolute 0.00 <0.10 K/mcL LAB HEMETOLOGY METHOD 12/16/2024 11:52 AM EDT [facility] Blood Venous blood specimen / Unknown Venipuncture / Unknown 12/16/2024 5:01 AM EDT 12/16/2024 11:06 AM EDT Eusebio Sprague MD LAB BLOOD ORDERABLES Final Resul t Performing Organization Address City/[facility]/ZIP Co de Phone Number [facility] [address] [place] [address], [place] [phone] * (ABNORMAL) Prothrombin time with INR (12/16/2024 5:01 AM EDT) Protime 29.8(H) 10.6 - 13.9 sec LAB COAGULATION METHOD 12/16/2024 11:25 AM EDT [facility] INR 2.4 LAB COAGULATION METHOD 12/16/2024 11:25 AM EDT [facility] Blood Venous blood specimen / Unknown Venipuncture / Unknown 12/16/2024 5:01 AM EDT 12/16/2024 11:06 AM EDT Eusebio Sprague MD LAB BLOOD ORDERABLES Final Resul t Performing Organization Address City/[facility]/ZIP Co de Phone Number [facility] [address] [place] [address], [place] [phone] documented in this encounter Visit Diagnoses Diagnosis Unspecified atrial fibrillation (CMS/HCC V24, CMS/HCC V28) Essential (primary) hypertension Unspecified essential hypertension documented in this encounter Care Teams Winding Department Supervisor Relationship Specialty Start Date End Date Eusebio Sprague MD [address] [place] [address] [address] [place] [address] PCP - General Geriatric Medicine 11/05/24 documented as of this encounter
--- OUTSIDE RECORDS SUMMARY | 2025-01-01 10:36 | XMS_ITS | Encounter Summary ---
Author Organization [employer] Address [address] [place] [address] Care Team Providers Care Hhas Name Role Phone Eusebio Sprague MD Primary Care Provider [phone] Encounter Details Date Type Department Care Team (Late st Contact Info) Description 11/05/2024 Lab Requisition [facility] - Main Lab [address] [facility] [place] [address] Eusebio Sprague MD [address] [place], [place] [id number] Unspecified atrial fibrillation (CMS/HCC V24, CMS/HCC V28) [...] sec LAB COAGULATION METHOD 11/06/2024 9:[address] [facility] INR 1.6 LAB COAGULATION METHOD 11/06/2024 9:[address] [facility] Blood Venous blood specimen / Unknown Venipuncture / Unknown 11/06/2024 7:06 AM EDT 11/06/2024 9:01 AM EDT Eusebio Sprague MD LAB BLOOD ORDERABLES Final Resul t [facility] ([facility]) [facility] [address] [place] [address], documented in this encounter Visit Diagnoses Diagnosis Unspecified atrial fibrillation (CMS/HCC V24, CMS/HCC V28) documented in this encounter Care Teams Hhas Relationship Specialty Start Date End Date Eusebio Sprague MD [address] [place] [address] [address] [place] [address] PCP - General Geriatric Medicine 11/05/24 documented as of this encounter
== END 2025-01-01 09:08 | disposition home or self-care (01) ==
LOC: HO.LAB 09:07
PROVIDERS: Visit Provider Physician Assistant
DX: N18.4 Chronic kidney disease, stage 4 (severe) (principal); E78.00 Pure hypercholesterolemia, unspecified
CPT/HCPCS: 36415; 80053; 80061; 85027

== ENCOUNTER 2025-01-05 13:18 | Outpatient (AMB) | payer MEDICARE, SELFPAY ==
[2025-01-05 13:30] VITALS: BP 124/72; PULSE 95; TEMP 36.2; O2SAT 96; BMI 22.2
--- NOTE | 2025-01-05 13:35 | AM.OFFVISMDC ---
Intake Vital Signs 01/05/25 13:30 01/05/25 13:39 Height 5 ft 2 in Weight 121 lb 7.595 oz BMI 22.2 22.2 BP 124/72 Blood Pressure Location Rt brachial Position Sitting Pulse 95 Pulse Source Pulse Oximeter Temp 97.1 F Temp Source Temporal Artery Scan Pulse Oximetry (%) 96 Oxygen Delivery Method Room Air Intake Visit Reasons: [facility] G0439 - see comments Accompanied by: Brother Allergies No Known Allergies (No Known Allergies*) Allergy (Verified 01/05/25 13:41) Medication List - Last Reconciled 01/05/25 by Ruben Dick PA-C acetaminophen 1,000 mg PO Q6H PRN amiodarone 100 mg PO DAILY atorvastatin 20 mg PO DAILY calcium carbonate (Calcium 600) 600 mg PO DAILY metoprolol succinate ER 25 mg (1/2 x 50 mg) PO DAILY omeprazole 20 mg PO DAILY PRN omeprazole 20 mg PO DAILY PRN raloxifene 60 mg PO DAILY tamsulosin 0.4 mg PO BEDTIME walker ([facility] [place] [place]) As directed warfarin 2 mg See Protocol PO SUMOTUWEFRSA@1800 warfarin 4 mg See Protocol PO TH@[address] [facility] G0439 - see comments HPI Details Patient is an 89-year-old female here today for an annual wellness visit. Patient has a past medical history significant for paroxysmal AFib, CKD-4, malignant melanoma, history of breast cancer. Rosy is now living in an assisted living and low [facility] and getting physical therapy. Unfortunately had fallen and broken her fibula. She is followed by Orthopedics Today we discussed patient's [place] of care, end of life planning and comprehensive care plan which was scanned into patient's documents. Concerns today--> has lower extremity edema likely secondary to her inactivity. Rehabilitation Therapy Aide having difficulty with hearing in his interested in having the wax removed from her years Vaccines: Up-to-date with COVID, pneumonia and tetanus, has upcoming flu and covid vaccine scheduled Mammogram: Gets mammograms annually, does have personal history of breast cancer twice. Colorectal cancer screening: No further colorectal cancer screening needed HPI Comments History of Present Illness Details reviewed past medical history- yes reviewed surgical / hospitalization history- yes reviewed current medications- yes reviewed family history- yes home safety throw rugs? grab bars? raised toilet seat? working smoke detectors? activities of daily living difficulty bathing or showering? difficulty dressing? difficulty using the toilet? difficulty getting in and out of bed? difficulty walking? receives help from other person's with any of the above tasks? instrumental activities of daily living uses telephone - gets to place out of walking distance- go shopping for groceries- repairs own meals- does own minor home maintenance- does own laundry- does own housework- manages own money- currently takes medication- end of life planning discussed advanced directives- yes advanced directives on file? discussed wishes expressed in advanced directives. fall risk have you had any falls with injuries in the past year? have you had 2 or more falls in the past year? fall risk assessment: [facility] Medical History PAF (paroxysmal atrial fibrillation) Essential hypertension Pulmonary hypertension Non-rheumatic tricuspid stenosis with insufficiency Abnormal myocardial perfusion study Chronic heart failure with preserved ejection fraction (HFpEF) Hiatal hernia Diverticulitis Gastro-esophageal reflux disease without esophagitis High cholesterol Hypertension Atrial fibrillation Surgical History S/P total abdominal hysterectomy History of cardioversion H/O mastectomy Family History Father Heart disease Mother Colon cancer Social History Household Members: None Housing: Apartment Are you a primary healthcare interpreter to a significant other at home: No Do you presently have visiting nurse or other home services: No Alcohol intake: never Patient Tobacco Use Status: Never used Tobacco e-Cigarette/Vaping Use: Never Used Second Hand Smoke Exposure: No Advance Directives Date on File: 01/16/20 service: No Current occupational status: retired Cognitive needs: No Hearing needs: No Vision needs: No Questionnaire Medicare Wellness Checkup What is your age?: 81 or older What gender do you identify with?: female During the past 4 weeks, how much have you been bothered by emotional problems such as feeling anxious, depressed, irritable, sad or downhearted, and blue?: slightly During the past 4 weeks, has your physical & emotional health limited your social activities with family, friends, neighbors, or groups?: slightly During the past 4 weeks, how much bodily pain have you generally had?: no pain During the past 4 weeks, was someone available to help you if you needed & wanted help?: yes, as much as I wanted During the past 4 weeks, what was the hardest physical activity you could do for at least 2 minutes?: light Can you get to places out of walking distance without help? (For eg., can you travel alone on buses, taxis or drive your car?): No Can you go shopping for groceries or clothes without someone's help?: No Can you prepare your own meals?: No Can you do your housework without help?: No Because of any health problems, do you need the help of another person with your personal care needs such as eating, bathing, dressing or getting around the house?: Yes Can you handle your own money without help?: Yes During the past 4 weeks, how would you rate your health in general?: good During the past 4 weeks how have things been going for you?: good & bad parts about equal Are you having difficulties driving your car?: yes, often Do you always fasten your seat belt when you are in a car?: yes, usually During past 4 weeks, have you been bothered by the following: never: Sexual problems?, Trouble eating well? and Teeth or denture problems?, sometimes: Problems using the telephone? and Tiredness or fatigue? and always: Falling or dizzy when standing up Have you fallen 2 or more times in the past year?: Yes Are you afraid of falling?: Yes Are you a smoker?: no During the past 4 weeks, how many drinks of wine, beer, or other alcoholic beverages did you have?: no alcohol at all Do you exercise for about 20 minutes 3 or more times a week?: no, I usually do not exercise this much Have you been given information to help with the following?: no: Hazards in your house that might hurt you? and no: Keeping track of your medications? How often do you have trouble taking medicines the way you have been told to take them?: I always take medicine as prescribed How confident are you that you can control & manage most of your health problems?: somewhat confident What is your race?: White Mini Mental State Exam (MMSE) Orientation What is the (year) (season) (date) (day) (month)?: year Where are we (state) (county) (town or city) (hospital) (floor)?: town or city Score Score: 2 Activity of Daily Living Bathing - sponge bath, tub bath or shower: receives help in bathing more than one body part (or not bathed) Dressing - getting clothes from closets & drawers, including inner/outer garments & fasteners.: receives help getting clothes or getting dressed, or stays undressed Toileting - going to the 'toilet room' for urine/bowel elimination & cleaning self/arranging clothes: does not go to room termed toilet for elimination process Transfer: moves in & out of bed or chair with help Continence: controls urination/bowel movements completely by self Feeding: feeds self without help Total Score: 3 Information obtained from: patient Using telephone: dependent Traveling: dependent Shopping: dependent Preparing meals: dependent Housework: dependent Taking medicine: needs assistance Managing money: needs assistance Physical Exam Vital Signs: Last Vital Signs Temp 97.1 F 01/05/25 13:30 Pulse 95 01/05/25 13:30 BP 124/72 01/05/25 13:30 Pulse Ox 96 01/05/25 13:30 Oxygen Delivery Method Room Air 01/05/25 13:30 BMI result Body Mass Index 22.2 HEENT Other: hearing screening whisper test- failed Eyes Other: vision screening- 20 20 OS OD OU Other: urinary incontinence? no Neuro Other: balance -currently wheelchair dependent due to cast on her leg secondary to a fibular fracture Romberg- unable to perform tandem walk test- unable to perform walk-in turned test- unable to perform rise from sit to stand- unable to perform Office Procedures Cerumen Removal From which ear canal was the cerumen removed: bilateral Removal: irrigation and otoscope w/curette Notes: patient tolerated procedure well [id number] Irrigation/Lavage Assessment & Plan Assessment & Plan (1) Medicare annual wellness visit, subsequent: Code(s): Z00.00 - Encounter for general adult medical examination without abnormal findings Plan: As per HPI (2) Swelling of lower extremity: Code(s): M79.89 - Other specified soft tissue disorders Plan: Will supply patient with paper script for medical compression socks for lower extremity edema Medications: New comp.stocking,knee,long,medium Need for 15-20 mmHg compression 2 ea 0RF M79.89 - Other specified soft tissue disorders Changed From amiodarone 100 mg PO DAILY I48.0 - Paroxysmal atrial fibrillation To amiodarone 100 mg (1/2 x 200 mg) PO DAILY 45 tabs 1RF 90 days I48.0 - Paroxysmal atrial fibrillation From metoprolol succinate ER 25 mg (1/2 x 50 mg) PO DAILY 90 tabs 1RF I48.0 - Paroxysmal atrial fibrillation To metoprolol succinate ER 50 mg PO DAILY 90 tabs 1RF 90 days I48.0 - Paroxysmal atrial fibrillation Refilled atorvastatin 20 mg PO DAILY 90 tabs 1RF I48.0 - Paroxysmal atrial fibrillation raloxifene 60 mg PO DAILY 90 tabs 4RF I48.0 - Paroxysmal atrial fibrillation Coding Level of Care Code Medicare Subsequent (G0439) Diagnoses Medicare annual wellness visit, subsequent Z00.00 Swelling of lower extremity M79.89 CPT Codes Office Procedure - CPT: 41078-Syb Irrigation/Lavage ([id number])
[2025-01-05 13:39] VITALS: BMI 22.2
--- OUTSIDE RECORDS SUMMARY | 2025-01-05 15:41 | XMS_ITS | Encounter Summary ---
Author Organization [facility] Address [facility]
--- OUTSIDE RECORDS SUMMARY | 2025-01-05 15:42 | XMS_ITS | Encounter Summary ---
Author Organization [facility] Address [address] [place] [address] Care Team Providers Care Pulp Roller Name Role Phone Eusebio Sprague MD Primary Care Provider [phone]
== END 2025-01-05 14:23 | disposition home or self-care (01) ==
LOC: HO.HMCH 13:19
PROVIDERS: PCP Physician Assistant; Visit Provider Physician Assistant
DX: Z00.00 Encounter for general adult medical examination without abnormal findings (principal); M79.89 Other specified soft tissue disorders; H61.23 Impacted cerumen, bilateral

== ENCOUNTER → 2025-01-05 13:18 | Outpatient (BNVA) | payer MEDICARE, SELFPAY | PROVIDERS: PCP Physician Assistant; Visit Provider Physician Assistant | DX: Z00.00 Encounter for general adult medical examination without abnormal findings (principal); H61.23 Impacted cerumen, bilateral; I48.0 Paroxysmal atrial fibrillation; N18.4 Chronic kidney disease, stage 4 (severe); M79.89 Other specified soft tissue disorders | CPT/HCPCS: 69210 ==

== ENCOUNTER 2025-01-09 13:16 | Outpatient (AMB) | payer MEDICARE, SELFPAY ==
--- NOTE | 2025-01-09 13:20 | A.OFFPC_ITS ---
Vital Signs 01/09/25 13:22 Height 5 ft 2 in Weight 123 lb 10.869 oz BMI 22.6 BP 132/68 Blood Pressure Location Rt brachial Position Sitting Pulse 77 Pulse Source Pulse Oximeter Temp 97.3 F Temp Source Temporal Artery Scan Pulse Oximetry (%) 97 Oxygen Delivery Method Room Air Intake Visit Reasons: b/l ear flush Intake Note: Patient is here to follow up on Ear flush. Flamer Sealer Required: No Nutrition And Dietetics Instructor: Present Accompanied by: Brother Allergies No Known Allergies (No Known Allergies*) Allergy (Verified 01/09/25 13:22) Tobacco use date assessed: 01/09/25 Fall risk assessment: No Falls in past year Last assessed Fall Risk: 01/09/25 Dental Screening Dental Screen Date: 01/09/25 Did you have a dental visit in the last 12 months?: Yes Did you have a dental problem in the last 6 months where you did not have access to dental care?: No Was dental information given to patient?: Patient has dentist HPI HPI Comments History of Present Illness Details The patient is an 89-year-old female presenting with impacted cerumen and hearing impairment. She has experienced hearing difficulties, which were worsened by cerumen impaction, and attempts to use hearing aids were unsuccessful due to her small ear canals and cerumen presence. She is here for ear flushing. [facility] Medical History PAF (paroxysmal atrial fibrillation) Essential hypertension Pulmonary hypertension Non-rheumatic tricuspid stenosis with insufficiency Abnormal myocardial perfusion study Chronic heart failure with preserved ejection fraction (HFpEF) Hiatal hernia Diverticulitis Gastro-esophageal reflux disease without esophagitis High cholesterol Hypertension Atrial fibrillation Surgical History S/P total abdominal hysterectomy History of cardioversion H/O mastectomy Family History Father Heart disease Mother Colon cancer Social History Household Members: None Housing: Apartment Are you a primary home health care physician to a significant other at home: No Do you presently have visiting nurse or other home services: No Alcohol intake: never Patient Tobacco Use Status: Never used Tobacco e-Cigarette/Vaping Use: Never Used Second Hand Smoke Exposure: No Advance Directives Date on File: 01/16/20 service: No Current occupational status: retired Cognitive needs: No Hearing needs: No Vision needs: No Questionnaire PHQ-9 Over the last 2 weeks, how often have you been bothered by any of the following problems? 1. Little interest or pleasure in doing things: not at all 2. Feeling down, depressed, or hopeless: not at all 3. Trouble falling or staying asleep, or sleeping too much: not at all 4. Feeling tired or having little energy: not at all 5. Poor appetite or overeating: not at all 6. Feeling bad about yourself - or that you are a failure or have let yourself or your family down: not at all 7. Trouble concentrating on things, such as reading the newspaper or watching television: not at all 8. Moving or speaking so slowly that other people could have noticed. Or the opposite - being so fidgety or restless that you have been moving around a lot more than usual: not at all 9. Thoughts that you would be better off or of hurting yourself in some way: not at all Total score: 0 Depression Screening Interpretation: Negative Depression Screening Done: Yes Source: Developed by Drs. Bandar Lopez, Mohinder Charlton and colleagues, with an educational hiram from [employer]. Thrive Questionnaire Date Thrive assessed: 10/30/24 ANGEL-7 AMB Questionnaire ANGEL-7 Date ANGEL - 7 assessed: 07/02/24 Source: Developed by Shell Jimenez Kurt Kroenke and colleagues, with an educational hiram from [employer]. Review of Systems Const Details: Not done Physical exam (Primary Care) Vital Signs: Last Vital Signs Temp 97.3 F 01/09/25 13:22 Pulse 77 01/09/25 13:22 BP 132/68 01/09/25 13:22 Pulse Ox 97 01/09/25 13:22 Oxygen Delivery Method Room Air 01/09/25 13:22 BMI result Body Mass Index 22.6 Tobacco/Smoking Status: Tobacco use Status Tobacco use date assessed 01/09/25 01/09/25 13:34 Patient Tobacco Use Status Never used Tobacco 01/09/25 13:34 e-Cigarette/Vaping Use Never Used 01/09/25 13:34 PHQ-9: PHQ-9 Score PHQ-9: Total score 0 01/09/25 13:34 Depression Screening Interpretation: Negative Thrive Assessment: Date of Thrive Assessment Date Thrive assessed 10/30/24 01/09/25 13:34 Const Other: Pertinent findings are in BOLD GENERAL APPEARANCE NAD, activity normal for age, well developed/ well nourished, no cyanosis, pallor, or diaphoresis. EYES lids/conjunctiva normal. EARS/NOSE/THROAT Mucous membranes moist, nares normal, lips/teeth normal uvula midline without oral pharyngeal erythema, exudate or swelling TMs normal bilaterally. No lymphangitis/lymphedema. HEAD/NECK normocephalic atraumatic, no facial trauma, neck is supple. RESPIRATORY respiratory effort normal, speaks in full sentences, no tripod position, no accessory muscle use. Lungs clear to auscultation without rhonchi, wheezes, rales CARDIAC Regular rate and rhythm, no edema. ABDOMINAL Soft, ND/NT. No evidence of fluid wave. No pulsatile masses on exam, rebound tenderness, Garcia sign or pain over Mcburney's point. MUSCLES/EXTREMITIES No abnormal range of motion, no swelling. SKIN Warm, pink and dry. No rashes, dermatoses, petechiae or lesions. NEUROLOGICAL Speech is clear and appropriate. Normal level of consciousness. Gait and coordination are normal. 5/5 strength in all extremities. PSYCH Normal mood and affect. Judgement/competence is appropriate Impacted right ear. Left ear clear. Coding Level of Care Code Est Pt Level 3 (81468) Procedure Only Diagnoses Impacted cerumen of both ears H61.23 Time Spent (min) 25 Assessment & Plan Assessment & Plan (1) Impacted cerumen of both ears: Code(s): H61.23 - Impacted cerumen, bilateral Category: Medical Plan: Ear flush completed. No dizziness after procedure. Patient tolerated procedure well.
[2025-01-09 13:22] VITALS: BP 132/68; PULSE 77; TEMP 36.3; O2SAT 97; BMI 22.6
--- OUTSIDE RECORDS SUMMARY | 2025-01-09 14:32 | XMS_ITS | Encounter Summary ---
Author Organization [employer] [employer] Address [address] [place] [address] Care Team Providers Care Sand Mill Operator Core Sand Name Role Phone Eusebio Sprague MD Primary Care Provider [phone] Encounter Details Date Type Department Care Team (Late st Contact Info) Description 11/26/2024 Lab Requisition [facility] - Main Lab [address] [facility] [place] [address] Eusebio Sprague MD [address] [place], [place] [id number] Unspecified atrial fibrillation (CMS/HCC V24, CMS/HCC V28) [...] sec LAB COAGULATION METHOD 11/27/2024 8:56 AM [facility] INR 2.0 LAB COAGULATION METHOD 11/27/2024 8:56 AM [facility] Blood Venous blood specimen / Unknown Venipuncture / Unknown 11/27/2024 6:40 AM EDT 11/27/2024 8:33 AM EDT Eusebio Sprague MD LAB BLOOD ORDERABLES Final Resul t [facility] ([facility] [address] [place] [address], documented in this encounter Visit Diagnoses Diagnosis Unspecified atrial fibrillation (CMS/HCC V24, CMS/HCC V28) documented in this encounter Care Teams Sand Mill Operator Core Sand Relationship Specialty Start Date End Date Eusebio Sprague MD [address] [place] [address] [address] [place] [address] PCP - General Geriatric Medicine 11/05/24 documented as of this encounter
--- OUTSIDE RECORDS SUMMARY | 2025-01-09 14:32 | XMS_ITS | Encounter Summary ---
Author Organization [employer] Address [address] [place] [address] Care Team Providers Care Laborer/Key Man Name Role Phone Eusebio Sprague MD Primary Care Provider [phone] Encounter Details Date Type Department Care Team (Late st Contact Info) Description 12/17/2024 Lab Requisition [facility] - Main Lab [address] [facility] [place] [address] Eusebio Sprague MD [address] [place], [place] [id number] Unspecified atrial fibrillation (CMS/HCC V24, CMS/HCC V28) [...] sec LAB COAGULATION METHOD 12/18/2024 10:20 AM [facility] INR 1.8 LAB COAGULATION METHOD 12/18/2024 10:20 AM [facility] Blood Venous blood specimen / Unknown Venipuncture / Unknown 12/18/2024 6:57 AM EDT 12/18/2024 9:44 AM EDT Eusebio Sprague MD LAB BLOOD ORDERABLES Final Resul t [facility] [address] [place] [address], documented in this encounter Visit Diagnoses Diagnosis Unspecified atrial fibrillation (CMS/HCC V24, CMS/HCC V28) documented in this encounter Care Teams Laborer/Key Man Relationship Specialty Start Date End Date Eusebio Sprague MD [address] [place] [address] [address] [place] [address] PCP - General Geriatric Medicine 11/05/24 documented as of this encounter
--- OUTSIDE RECORDS SUMMARY | 2025-01-09 14:32 | XMS_ITS | Clinical Summary ---
Author Organization [facility] [address] [place] [address] Phone Care Team Providers Care Aircraft Log Clerk Name Role Phone Ruben Dick Primary Care Provider [phone] Allergies No known active allergies Medications amiodarone [...] to complete this topic Insurance Care Teams Aircraft Log Clerk Relationship Specialty Start Date End Date Ruben Dick PA [address] [place] [address], [address] [place] [address] PCP - General Physician Financial Internship 07/19/21
--- OUTSIDE RECORDS SUMMARY | 2025-01-09 14:32 | XMS_ITS | Encounter Summary ---
Author Organization [employer] Address [address] [place] [address] Care Team Providers Care Tape Cutter Name Role Phone Eusebio Sprague MD Primary Care Provider [phone] Encounter Details Date Type Department Care Team (Late st Contact Info) Description 11/24/2024 Lab Requisition [facility] - Main Lab [address] [place] [address] Reena Salmon PA [address] [facility] [place] [address] Heart failure, unspecified (CMS/HCC V24, CMS/HCC V28); [...] sec LAB COAGULATION METHOD 11/24/2024 10:32 AM [facility] INR 2.0 LAB COAGULATION METHOD 11/24/2024 10:32 AM [facility] Blood Venous blood specimen / Unknown Venipuncture / Unknown 11/24/2024 6:19 AM EDT 11/24/2024 10:10 AM EDT us Reena FOSTER LAB BLOOD ORDERABLES Final Resu lt Performing Organization Address City/[facility]/ZIP Co de Phone Number [facility] [address] [place] [address], [place] [phone] * Magnesium (11/24/2024 6:19 AM EDT) Pathologist [facility] Magnesium 2.4 1.9 - 2.6 mg/dL LAB CHEMISTRY METHOD 11/24/2024 11:02 AM EDT [facility] Blood Venous blood specimen / Unknown Venipuncture / Unknown 11/24/2024 6:19 AM EDT 11/24/2024 10:10 AM EDT us Reena FOSTER LAB BLOOD ORDERABLES Final Resu lt Performing Organization Address [facility]/ZIP Co de Phone Number [facility] [address] [place] [address], [place] [phone] * (ABNORMAL) Vitamin D 25 hydroxy (11/24/2024 6:19 AM EDT) [facility] Vit D, 25-Hydroxy 29.0(L) 30.0 - 80.0 ng/mL LAB CHEMISTRY METHOD 11/24/2024 11:59 AM EDT [facility] Blood Venous blood specimen / Unknown Venipuncture / Unknown 11/24/2024 6:19 AM EDT 11/24/2024 10:10 AM EDT us Reena FOSTER LAB BLOOD ORDERABLES Final Resu lt Performing Organization Address City/[facility]/ZIP Co de Phone Number [facility] [address] [place] [address], [place] [phone] * (ABNORMAL) Thyroid stimulating hormone (11/24/2024 6:19 AM EDT) [facility] TSH 4.43(H) 0.40 - 4.00 mcIU/mL LAB CHEMISTRY METHOD 11/24/2024 11:59 AM EDT [facility] Blood Venous blood specimen / Unknown Venipuncture / Unknown 11/24/2024 6:19 AM EDT 11/24/2024 10:10 AM EDT us Reena FOSTER LAB BLOOD ORDERABLES Final Resu lt Performing Organization Address [facility]/ZIP Co de Phone Number [facility] [address] [place] [address], [place] [phone] * Vitamin B12 and folate (11/24/2024 6:19 AM EDT) [facility] Vitamin B-12 470 250 - 900 pcg/mL LAB CHEMISTRY METHOD 11/24/2024 11:28 AM EDT [facility] Folate 6.3 2.8 - 17.0 ng/ml LAB CHEMISTRY METHOD 11/24/2024 11:28 AM EDT [facility] Blood Venous blood specimen / Unknown Venipuncture / Unknown 11/24/2024 6:19 AM EDT 11/24/2024 10:10 AM EDT us Reena FOSTER LAB BLOOD ORDERABLES Final Resu lt Performing Organization Address City/[facility]/ZIP Co de Phone Number [facility] [address] [place] [address], [place] [phone] * (ABNORMAL) Comprehensive metabolic panel (11/24/2024 6:19 AM EDT) [facility] Sodium 139 133 - 145 mmol/L LAB CHEMISTRY METHOD 11/24/2024 11:28 AM EDT [facility] Potassium 5.1 3.5 - 5.5 mmol/L LAB CHEMISTRY METHOD 11/24/2024 11:28 AM EDT [facility] Chloride 108 96 - 110 mmol/L LAB CHEMISTRY METHOD 11/24/2024 11:28 AM [facility] CO2 25 21 - 32 mmol/L LAB CHEMISTRY METHOD 11/24/2024 11:28 AM [facility] Anion Gap 6 3 - 11 LAB CHEMISTRY METHOD 11/24/2024 11:28 AM [facility] Glucose 66(L) 70 - 100 mg/dL LAB CHEMISTRY METHOD 11/24/2024 11:28 AM [facility] BUN 45(H) 5 - 25 mg/dL LAB CHEMISTRY METHOD 11/24/2024 11:28 AM [facility] Creatinine 1.48(H) 0.50 - 1.10 mg/dL LAB CHEMISTRY METHOD 11/24/2024 11:28 AM [facility] eGFR 34(L) >=60 mL/min/1. 73m2 LAB CHEMISTRY METHOD 11/24/2024 11:28 AM [facility] Comment:Calculation based on the Chronic Kidney Disease Epidemiology Collaboration (CKD-EPI) equation refit without adjustment for race. BUN/Creatinine Ratio 30.4 LAB CHEMISTRY METHOD 11/24/2024 11:28 AM [facility] Calcium 8.1(L) 8.5 - 10.5 mg/dL LAB CHEMISTRY METHOD 11/24/2024 11:28 AM [facility] AST (SGOT) 51(H) 10 - 42 unit/L LAB CHEMISTRY METHOD 11/24/2024 11:28 AM [facility] ALT (SGPT) 58 10 - 60 unit/L LAB CHEMISTRY METHOD 11/24/2024 11:28 AM [facility] Alkaline Phosphatase 119 42 - 121 unit/L LAB CHEMISTRY METHOD 11/24/2024 11:28 AM [facility] Total Protein 4.8(L) 6.0 - 8.0 g/dL LAB CHEMISTRY METHOD 11/24/2024 11:28 AM EDT [facility] Albumin 2.3(L) 3.2 - 5.0 g/dL LAB CHEMISTRY METHOD 11/24/2024 11:28 AM EDT [facility] Total Bilirubin 0.3 0.0 - 1.4 mg/dL LAB CHEMISTRY METHOD 11/24/2024 11:28 AM T [facility] Blood Venous blood specimen / Unknown Venipuncture / Unknown 11/24/2024 6:19 AM EDT 11/24/2024 10:10 AM EDT us Reena FOSTER LAB BLOOD ORDERABLES Final Resu lt [facility] [address] [place] [address], [place] [phone] * (ABNORMAL) Complete blood count (11/24/2024 6:19 AM EDT) WBC 6.4 4.8 - 10.8 K/mcL LAB HEMETOLOGY METHOD 11/24/2024 10:32 AM [facility] RBC 3.30(L) 3.80 - 4.80 M/mcL LAB HEMETOLOGY METHOD 11/24/2024 10:32 AM [facility] Hemoglobin 10.6(L) 11.5 - 16.0 g/dL LAB HEMETOLOGY METHOD 11/24/2024 10:32 AM T [facility] Hematocrit 33.6(L) 35.0 - 47.0 % LAB HEMETOLOGY METHOD 11/24/2024 10:32 AM [facility] MCV 100.9(H) 79.0 - 98.0 FL LAB HEMETOLOGY METHOD 11/24/2024 10:32 AM [facility] MCH 31.8 27.0 - 32.0 pcg LAB HEMETOLOGY METHOD 11/24/2024 10:32 AM EDT [facility] MCHC 31.5(L) 32.0 - 37.0 g/dL LAB HEMETOLOGY METHOD 11/24/2024 10:32 AM EDT [facility] RDW 13.9 11.0 - 15.0 % LAB HEMETOLOGY METHOD 11/24/2024 10:32 AM EDT [facility] Platelets 223 130 - 400 K/mcL LAB HEMETOLOGY METHOD 11/24/2024 10:32 AM EDT [facility] MPV 10.0 7.0 - 11.0 FL LAB HEMETOLOGY METHOD 11/24/2024 10:32 AM EDT [facility] NRBC 0.0 <1.0 % LAB HEMETOLOGY METHOD 11/24/2024 10:32 AM EDT [facility] NRBC Absolute 0.00 <0.10 K/mcL LAB HEMETOLOGY METHOD 11/24/2024 10:32 AM EDT [facility] Blood Venous blood specimen / Unknown Venipuncture / Unknown 11/24/2024 6:19 AM EDT 11/24/2024 10:10 AM EDT us Reena FOSTER LAB BLOOD ORDERABLES Final Resu lt [facility] [address] [place] [address], documented in this encounter Visit Diagnoses Diagnosis Heart failure, unspecified (CMS/HCC V24, CMS/HCC V28) Heart failure, unspecified Vitamin D deficiency, unspecified Hypothyroidism, unspecified Unspecified atrial fibrillation (CMS/HCC V24, CMS/HCC V28) documented in this encounter Care Teams Tape Cutter Relationship Specialty Start Date End Date Eusebio Sprague MD [address] [place], [place] [id number] [place] [address] PCP - General Geriatric Medicine 11/05/24 documented as of this encounter
--- OUTSIDE RECORDS SUMMARY | 2025-01-09 14:32 | XMS_ITS | Encounter Summary ---
Author Organization [employer] Address [address] [place] [address] Care Team Providers Care Product Strategy Director Name Role Phone Eusebio Sprague MD Primary Care Provider [phone] Encounter Details Date Type Department Care Team (Late st Contact Info) Description 12/11/2024 Lab Requisition [facility] - Main Lab [address] [facility] [place] [address] Eusebio Sprague MD [address] [place], [place] [id number] Frequency of micturition Social History Tobacco Use [...] reflex microscopic (12/10/2024 4:30 AM EDT) Specific [place] Urine 1.014 1.003 - 1.030 LAB URINALYSIS - AUTOMATED METHOD 12/11/2024 10:24 AM EDT [facility] pH, Urine 5.5 5.0 - 8.0 pH LAB URINALYSIS - AUTOMATED METHOD 12/11/2024 10:24 AM [facility] Leukocytes, Urine Large(A) Negative LAB URINALYSIS - AUTOMATED METHOD 12/11/2024 10:24 AM [facility] Nitrite, Urine Negative Negative LAB URINALYSIS - AUTOMATED METHOD 12/11/2024 10:24 AM [facility] Protein, Urine Trace <=Trace mg/dL LAB URINALYSIS - AUTOMATED METHOD 12/11/2024 10:24 AM [facility] Glucose, Urine Negative Negative mg/dL LAB URINALYSIS - AUTOMATED METHOD 12/11/2024 10:24 AM [facility] Ketones, Urine Negative Negative mg/dL LAB URINALYSIS - AUTOMATED METHOD 12/11/2024 10:24 AM [facility] Urobilinogen, Urine 0.2 0.2 - 1.0 mg/dL LAB URINALYSIS - AUTOMATED METHOD 12/11/2024 10:24 AM [facility] Bilirubin, Urine Negative Negative LAB URINALYSIS - AUTOMATED METHOD 12/11/2024 10:24 AM [facility] Blood, Urine Small(A) Negative LAB URINALYSIS - AUTOMATED METHOD 12/11/2024 10:24 AM [facility] RBC, Urine 7.1(H) 0 - 4 /HPF LAB URINALYSIS - AUTOMATED METHOD 12/11/2024 10:24 AM [facility] WBC, Urine 990.7(H) 0 - 4 /HPF LAB URINALYSIS - AUTOMATED METHOD 12/11/2024 10:24 AM [facility] Squamous Epithelial, Urine 41 0 - 60 /LPF LAB URINALYSIS - AUTOMATED METHOD 12/11/2024 10:24 AM [facility] Bacteria, Urine Many(A) Negative /HPF LAB URINALYSIS - AUTOMATED METHOD 12/11/2024 10:24 AM EDT [facility] Hyaline Casts, Urine 2.4 0 - 3 /LPF LAB URINALYSIS - AUTOMATED METHOD 12/11/2024 10:24 AM EDT [facility] Urine Urine specimen obtained by clean catch procedure / Unknown 12/10/2024 4:30 AM EDT 12/11/2024 9:17 AM EDT us Eusebio Sprague MD LAB URINE ORDERABLES Final Resul t [facility] [address] [place] [address], * (ABNORMAL) Culture urine (12/10/2024 4:30 AM EDT) Culture, Urine >=100,000 CFU/mL Enterococcus faecium(A) RAMA 12/14/2024 8:27 AM EDT [facility] Comment: Edited result: Previously reported as Gram Positive Cocci on 12/12/2024 at 1105 EDT. Culture, Urine 10,000-49,000 CFU/mL Enterococcus faecalis(A) RAMA 12/14/2024 8:27 AM EDT [facility] Comment: The organism value for this result has been updated. These results have been appended to the previously preliminary verified report. Urine Urine specimen obtained by clean catch procedure / Unknown 12/10/2024 4:30 AM EDT 12/11/2024 9:17 AM EDT Narrative [facility] - 12/14/2024 8:27 AM EDT [...] MICROBIOLOGY - GENERAL ORDER GONZALEZ Final Result [facility] ([facility] [address] [place] [address], documented in this encounter Visit Diagnoses Diagnosis Frequency of micturition Urinary frequency documented in this encounter Care Teams Product Strategy Director Relationship Specialty Start Date End Date Eusebio Sprague MD [address] [place] [address] [address] [place] [address] PCP - General Geriatric Medicine 11/05/24 documented as of this encounter
--- OUTSIDE RECORDS SUMMARY | 2025-01-09 14:32 | XMS_ITS | Encounter Summary ---
Author Organization [email or web address] Address [address] [place] [address] Care Team Providers Care Gore Inserter Name Role Phone Eusebio Sprague MD Primary Care Provider [phone] Encounter Details Date Type Department Care Team (Late st Contact Info) Description 11/15/[address] [facility] - Main Lab [address] [facility] [place] [address] Eusebio Sprague MD [address] [place], [place] [phone] Unspecified atrial fibrillation (CMS/HCC V24, CMS/HCC V28); [...] unspecified documented in this encounter Care Teams Gore Inserter Relationship Specialty Start Date End Date Eusebio Sprague MD [address] [place], [place] [phone] PCP - General Geriatric Medicine 11/05/24 documented as of this encounter
--- OUTSIDE RECORDS SUMMARY | 2025-01-09 14:32 | XMS_ITS | Encounter Summary ---
Author Organization [employer] Address [address] [place] [address] Care Team Providers Care Ruling Technician Name Role Phone Eusebio Sprague MD Primary Care Provider [phone] Encounter Details Date Type Department Care Team (Late st Contact Info) Description 12/24/2024 Lab Requisition [facility] - Main Lab [address] [facility] [place] [address] Eusebio Sprague MD [address] [place], [place] [phone] Unspecified atrial fibrillation (CMS/HCC V24, CMS/HCC V28) [...] V28) documented in this encounter Care Teams Ruling Technician Relationship Specialty Start Date End Date Eusebio Sprague MD [address] [place], [place] [phone] PCP - General Geriatric Medicine 11/05/24 documented as of this encounter
--- OUTSIDE RECORDS SUMMARY | 2025-01-09 14:32 | XMS_ITS | Encounter Summary ---
Author Organization [employer] Address [address] [place] [address] Care Team Providers Care Clam Dredge Boat Captain Name Role Phone Eusebio Sprague MD Primary Care Provider [phone] Encounter Details Date Type Department Care Team (Late st Contact Info) Description 12/05/2024 Lab Requisition [facility] - Main Lab [address] [facility] [place] [address] Eusebio Sprague MD [address] [place], [place] [phone] Unspecified atrial fibrillation (CMS/HCC V24, CMS/HCC V28); [...] mmol/L LAB CHEMISTRY METHOD 12/08/2024 1:[address] [facility] Potassium 5.1 3.5 - 5.5 mmol/L LAB CHEMISTRY METHOD 12/08/2024 1:[address] [facility] Chloride 111(H) 96 - 110 mmol/L LAB CHEMISTRY METHOD 12/08/2024 1:[address] [facility] CO2 23 21 - 32 mmol/L LAB CHEMISTRY METHOD 12/08/2024 1:[address] [facility] Anion Gap 7 3 - 11 LAB CHEMISTRY METHOD 12/08/2024 1:[address] [facility] Glucose 68(L) 70 - 100 mg/dL LAB CHEMISTRY METHOD 12/08/2024 1:[address] [facility] BUN 34(H) 5 - 25 mg/dL LAB CHEMISTRY METHOD 12/08/2024 1:[address] [facility] Creatinine 1.55(H) 0.50 - 1.10 mg/dL LAB CHEMISTRY METHOD 12/08/2024 1:[address] [facility] eGFR 32(L) >=60 mL/min/1. 73m2 LAB CHEMISTRY METHOD 12/08/2024 1:[address] [facility] Comment:Calculation based on the Chronic Kidney Disease Epidemiology Collaboration (CKD-EPI) equation refit without adjustment for race. BUN/Creatinine Ratio 21.9 LAB CHEMISTRY METHOD 12/08/2024 1:[address] [facility] Calcium 8.8 8.5 - 10.5 mg/dL LAB CHEMISTRY METHOD 12/08/2024 1:[address] [facility] Blood Venous blood specimen / Unknown Venipuncture / Unknown 12/08/2024 6:23 AM EDT 12/08/2024 10:07 AM EDT us Eusebio Sprague MD LAB BLOOD ORDERABLES Final Resul t [facility] [address] [place] [address], * (ABNORMAL) Complete blood count (12/08/2024 6:23 AM EDT) WBC 5.6 4.8 - 10.8 K/mcL LAB HEMETOLOGY METHOD 12/08/2024 11:03 AM EDT [facility] RBC 3.80 3.80 - 4.80 M/mcL LAB HEMETOLOGY METHOD 12/[facility]24 [facility] Hemoglobin 11.8 11.5 - 16.0 g/dL LAB HEMETOLOGY METHOD 12/08/2024 11:[address] [facility] Hematocrit 37.4 35.0 - 47.0 % LAB HEMETOLOGY METHOD 12/08/2024 11:[address] [facility] MCV 99.2(H) 79.0 - 98.0 FL LAB HEMETOLOGY METHOD 12/08/2024 11:[address] [facility] MCH 31.3 27.0 - 32.0 pcg LAB HEMETOLOGY METHOD 12/08/2024 11:[address] [facility] MCHC 31.6(L) 32.0 - 37.0 g/dL LAB HEMETOLOGY METHOD 12/08/2024 11:[address] [facility] RDW 14.4 11.0 - 15.0 % LAB HEMETOLOGY METHOD 12/08/2024 11:[address] [facility] Platelets 176 130 - 400 K/mcL LAB HEMETOLOGY METHOD 12/08/2024 11:[address] [facility] MPV 10.0 7.0 - 11.0 FL LAB HEMETOLOGY METHOD 12/08/2024 11:03 AM EDT [facility] NRBC 0.0 <1.0 % LAB HEMETOLOGY METHOD 12/08/2024 11:03 AM EDT [facility] NRBC Absolute 0.00 <0.10 K/mcL LAB HEMETOLOGY METHOD 12/08/2024 11:03 AM EDT [facility] Blood Venous blood specimen / Unknown Venipuncture / Unknown 12/08/2024 6:23 AM EDT 12/08/2024 10:07 AM EDT Eusebio Sprague MD LAB BLOOD ORDERABLES Final Resul t Performing Organization Address [facility] Co de Phone Number [facility] [address] [place] [address], [place] [phone] * (ABNORMAL) Prothrombin time with INR (12/08/2024 6:23 AM EDT) Protime 35.3(H) 10.6 - 13.9 sec LAB COAGULATION METHOD 12/08/2024 10:47 AM EDT [facility] INR 2.9 LAB COAGULATION METHOD 12/08/2024 10:47 AM EDT [facility] Blood Venous blood specimen / Unknown Venipuncture / Unknown 12/08/2024 6:23 AM EDT 12/08/2024 10:07 AM EDT Eusebio Sprague MD LAB BLOOD ORDERABLES Final Resul t Performing Organization Address City/[facility]/ZIP Co de Phone Number [facility] [address] [place] [address], [place] [phone] documented in this encounter Visit Diagnoses Diagnosis Unspecified atrial fibrillation (CMS/HCC V24, CMS/HCC V28) Essential (primary) hypertension Unspecified essential hypertension documented in this encounter Care Teams Clam Dredge Boat Captain Relationship Specialty Start Date End Date Eusebio Sprague MD [address] [place] [address] [address] [place] [address] PCP - General Geriatric Medicine 11/05/24 documented as of this encounter
--- OUTSIDE RECORDS SUMMARY | 2025-01-09 14:32 | XMS_ITS | Encounter Summary ---
Author Organization [employer] Address [address] [place] [address] Care Team Providers Care Food Crops Farm Hand Name Role Phone Eusebio Sprague MD Primary Care Provider [phone] Encounter Details Date Type Department Care Team (Late st Contact Info) Description 12/20/[address] [facility] - Main Lab [address] [facility] [place] [address] Eusebio Sprague MD [address] [place], [place] [phone] Unspecified atrial fibrillation (CMS/HCC V24, CMS/HCC V28); [...] mmol/L LAB CHEMISTRY METHOD 12/22/2024 1:13 PM [facility] Potassium 4.8 3.5 - 5.5 mmol/L LAB CHEMISTRY METHOD 12/22/2024 1:13 PM [facility] Chloride 109 96 - 110 mmol/L LAB CHEMISTRY METHOD 12/22/2024 1:13 PM [facility] CO2 25 21 - 32 mmol/L LAB CHEMISTRY METHOD 12/22/2024 1:13 PM [facility] Anion Gap 6 3 - 11 LAB CHEMISTRY METHOD 12/22/2024 1:13 PM [facility] Glucose 72 70 - 100 mg/dL LAB CHEMISTRY METHOD 12/22/2024 1:13 PM [facility] BUN 33(H) 5 - 25 mg/dL LAB CHEMISTRY METHOD 12/22/2024 1:13 PM [facility] Creatinine 1.53(H) 0.50 - 1.10 mg/dL LAB CHEMISTRY METHOD 12/22/2024 1:13 PM [facility] eGFR 33(L) >=60 mL/min/1. 73m2 LAB CHEMISTRY METHOD 12/22/2024 1:13 PM [facility] Comment:Calculation based on the Chronic Kidney Disease Epidemiology Collaboration (CKD-EPI) equation refit without adjustment for race. BUN/Creatinine Ratio 21.6 LAB CHEMISTRY METHOD 12/22/2024 1:13 PM [facility] Calcium 8.7 8.5 - 10.5 mg/dL LAB CHEMISTRY METHOD 12/22/2024 1:13 PM [facility] Blood Venous blood specimen / Unknown Venipuncture / Unknown 12/22/2024 6:15 AM EDT 12/22/2024 10:44 AM EDT us Fahim A Celestine MD LAB BLOOD ORDERABLES Final Resul t [facility] [address] [place] [address], * (ABNORMAL) Complete blood count (12/22/2024 6:15 AM EDT) WBC 4.7(L) 4.8 - 10.8 K/mcL LAB HEMETOLOGY METHOD 12/22/2024 11:59 AM EDT [facility] RBC 3.70(L) 3.80 - 4.80 M/mcL LAB HEMETOLOGY METHOD 12/22/2024 11:59 AM EDT [facility] Hemoglobin 11.3(L) 11.5 - 16.0 g/dL LAB HEMETOLOGY METHOD 12/22/2024 11:59 AM EDT [facility] Hematocrit 36.4 35.0 - 47.0 % LAB HEMETOLOGY METHOD 12/22/2024 11:59 AM EDT [facility] MCV 99.5(H) 79.0 - 98.0 FL LAB HEMETOLOGY METHOD [facility] MCH 30.9 27.0 - 32.0 pcg LAB HEMETOLOGY METHOD 12/22/2024 11:59 AM EDT [facility] MCHC 31.0(L) 32.0 - 37.0 g/dL LAB HEMETOLOGY METHOD 12/22/2024 11:59 AM EDT [facility] RDW 13.9 11.0 - 15.0 % LAB HEMETOLOGY METHOD 12/22/2024 11:59 AM EDT [facility] Platelets 153 130 - 400 K/mcL LAB HEMETOLOGY METHOD 12/22/2024 11:59 AM EDT [facility] MPV 10.1 7.0 - 11.0 FL LAB HEMETOLOGY METHOD 12/22/2024 11:59 AM EDT [facility] NRBC 0.0 <1.0 % LAB HEMETOLOGY METHOD 12/22/2024 11:59 AM EDT [facility] NRBC Absolute 0.00 <0.10 K/mcL LAB HEMETOLOGY METHOD 12/22/2024 11:59 AM EDT [facility] Blood Venous blood specimen / Unknown Venipuncture / Unknown 12/22/2024 6:15 AM EDT 12/22/2024 10:44 AM EDT Eusebio Sprague MD LAB BLOOD ORDERABLES Final Resul t Performing Organization Address City/[facility]/ZIP Co de Phone Number [facility] [address] [place] [address], [place] [phone] * (ABNORMAL) Prothrombin time with INR (12/22/2024 6:15 AM EDT) Protime 27.8(H) 10.6 - 13.9 sec LAB COAGULATION METHOD 12/22/2024 11:38 AM EDT [facility] INR 2.2 LAB COAGULATION METHOD 12/22/2024 11:38 AM EDT [facility] Blood Venous blood specimen / Unknown Venipuncture / Unknown 12/22/2024 6:15 AM EDT 12/22/2024 10:44 AM EDT Eusebio Sprague MD LAB BLOOD ORDERABLES Final Resul t Performing Organization Address City/[facility]/ZIP Co de Phone Number [facility] [address] [place] [address], [place] [phone] documented in this encounter Visit Diagnoses Diagnosis Unspecified atrial fibrillation (CMS/HCC V24, CMS/HCC V28) Essential (primary) hypertension Unspecified essential hypertension documented in this encounter Care Teams Food Crops Farm Hand Relationship Specialty Start Date End Date Eusebio Sprague MD [address] [place] [address] [address] [place] [address] PCP - General Geriatric Medicine 11/05/24 documented as of this encounter
--- OUTSIDE RECORDS SUMMARY | 2025-01-09 14:33 | XMS_ITS | Encounter Summary ---
Author Organization [employer] Address [address] [place] [address] Care Team Providers Care Regulatory Associate Name Role Phone Eusebio Sprague MD Primary Care Provider [phone] Encounter Details Date Type Department Care Team (Late st Contact Info) Description 11/05/[address] [facility] - Main Lab [address] [place] [address] Eusebio Sprague MD [address] [place], [place] [address] Unspecified atrial fibrillation (CMS/HCC V24, CMS/HCC V28); [...] Results * Magnesium (11/05/2024 6:51 AM EDT) [facility] Magnesium 2.5 1.9 - 2.6 mg/dL LAB CHEMISTRY METHOD 11/05/2024 12:06 PM EDT [facility] Blood Venous blood specimen / Unknown Venipuncture / Unknown 11/05/2024 6:51 AM EDT 11/05/2024 10:39 AM EDT us Eusebio Sprague MD LAB BLOOD ORDERABLES Final Resul t Performing Organization Address City/[facility]/ZIP Co de Phone Number [facility] [address] [place] [address], [place] [phone] * Thyroid stimulating hormone (11/05/2024 6:51 AM EDT) [facility] TSH 2.71 0.40 - 4.00 mcIU/mL LAB CHEMISTRY METHOD 11/05/2024 12:58 PM EDT [facility] Blood Venous blood specimen / Unknown Venipuncture / Unknown 11/05/2024 6:51 AM EDT 11/05/2024 10:39 AM EDT us Eusebio Sprague MD LAB BLOOD ORDERABLES Final Resul t [facility] [address] [place] [address], [place] [phone] * Vitamin D 25 hydroxy (11/05/2024 6:51 AM EDT) [facility] Vit D, 25-Hydroxy 38.0 30.0 - 80.0 ng/mL LAB CHEMISTRY METHOD 11/05/2024 12:58 PM EDT [facility] Blood Venous blood specimen / Unknown Venipuncture / Unknown 11/05/2024 6:51 AM EDT 11/05/2024 10:39 AM EDT us Eusebio Sprague MD LAB BLOOD ORDERABLES Final Resul t Performing Organization Address [facility] Co de Phone Number [facility] [address] [place] [address], [place] [phone] * Vitamin B12 (11/05/2024 6:51 AM EDT) [facility] Vitamin B-12 387 250 - 900 pcg/mL LAB CHEMISTRY METHOD 11/05/2024 12:33 PM EDT [facility] Blood Venous blood specimen / Unknown Venipuncture / Unknown 11/05/2024 6:51 AM EDT 11/05/2024 10:39 AM EDT us Eusebio Sprague MD LAB BLOOD ORDERABLES Final Resul t Performing Organization Address [facility] de Phone Number [facility] [address] [place] [address], [place] [phone] * Folate (11/05/2024 6:51 AM EDT) [facility] Folate 8.7 2.8 - 17.0 ng/ml LAB CHEMISTRY METHOD 11/05/2024 12:33 PM EDT [facility] Blood Venous blood specimen / Unknown Venipuncture / Unknown 11/05/2024 6:51 AM EDT 11/05/2024 10:39 AM EDT us Eusebio Sprague MD LAB BLOOD ORDERABLES Final Resul t Performing Organization Address [facility] Co de Phone Number [facility] [address] [place] [address], [place] [phone] * (ABNORMAL) Prothrombin time with INR (11/05/2024 6:51 AM EDT) [facility] Protime 17.5(H) 10.6 - 13.9 sec LAB COAGULATION METHOD 11/05/2024 11:22 AM [facility] INR 1.4 LAB COAGULATION METHOD 11/05/2024 11:22 AM [facility] Blood Venous blood specimen / Unknown Venipuncture / Unknown 11/05/2024 6:51 AM EDT 11/05/2024 10:39 AM EDT us Eusebio Sprague MD LAB BLOOD ORDERABLES Final Resul t [facility] [address] [place] [address], [place] [phone] * (ABNORMAL) Comprehensive metabolic panel (11/05/2024 6:51 AM EDT) [facility] Sodium 140 133 - 145 mmol/L LAB CHEMISTRY METHOD 11/05/2024 12:33 PM [facility] Potassium 4.9 3.5 - 5.5 mmol/L LAB CHEMISTRY METHOD 11/05/2024 12:33 PM [facility] Chloride 109 96 - 110 mmol/L LAB CHEMISTRY METHOD 11/05/2024 12:33 PM [facility] CO2 25 21 - 32 mmol/L LAB CHEMISTRY METHOD 11/05/2024 12:33 PM [facility] Anion Gap 6 3 - 11 LAB CHEMISTRY METHOD 11/05/2024 12:33 PM [facility] Glucose 86 70 - 100 mg/dL LAB CHEMISTRY METHOD 11/05/2024 12:33 PM [facility] BUN 61(H) 5 - 25 mg/dL LAB CHEMISTRY METHOD 11/05/2024 12:33 PM [facility] Creatinine 1.64(H) 0.50 - 1.10 mg/dL LAB CHEMISTRY METHOD 11/05/2024 12:33 PM [facility] eGFR 30(L) >=60 mL/min/1. 73m2 LAB CHEMISTRY METHOD 11/05/2024 12:33 PM [facility] Comment:Calculation based on the Chronic Kidney Disease Epidemiology Collaboration (CKD-EPI) equation refit without adjustment for race. BUN/Creatinine Ratio 37.2 LAB CHEMISTRY METHOD 11/05/2024 12:33 PM [facility] Calcium 9.2 8.5 - 10.5 mg/dL LAB CHEMISTRY METHOD 11/05/2024 12:33 PM [facility] AST (SGOT) 43(H) 10 - 42 unit/L LAB CHEMISTRY METHOD 11/05/2024 12:33 PM [facility] ALT (SGPT) 47 10 - 60 unit/L LAB CHEMISTRY METHOD 11/05/2024 12:33 PM [facility] Alkaline Phosphatase 85 42 - 121 unit/L LAB CHEMISTRY METHOD 11/05/2024 12:33 PM [facility] Total Protein 5.6(L) 6.0 - 8.0 g/dL LAB CHEMISTRY METHOD 11/05/2024 12:33 PM [facility] Albumin 3.0(L) 3.2 - 5.0 g/dL LAB CHEMISTRY METHOD 11/05/2024 12:33 PM [facility] Total Bilirubin 0.9 0.0 - 1.4 mg/dL LAB CHEMISTRY METHOD 11/05/2024 12:33 PM [facility] Blood Venous blood specimen / Unknown Venipuncture / Unknown 11/05/2024 6:51 AM EDT 11/05/2024 10:39 AM EDT us Eusebio Sprague MD LAB BLOOD ORDERABLES Final Resul t [facility] [address] [place] [address], * (ABNORMAL) Complete blood count (11/05/2024 6:51 AM EDT) [facility] WBC 5.3 4.8 - 10.8 K/mcL LAB HEMETOLOGY METHOD 11/05/2024 11:32 AM [facility] RBC 3.60(L) 3.80 - 4.80 M/mcL LAB HEMETOLOGY METHOD 11/05/2024 11:32 AM [facility] Hemoglobin 11.7 11.5 - 16.0 g/dL LAB HEMETOLOGY METHOD 11/05/2024 11:32 AM [facility] Hematocrit 35.8 35.0 - 47.0 % LAB HEMETOLOGY METHOD 11/05/2024 11:32 AM [facility] MCV 100.8(H) 79.0 - 98.0 FL LAB HEMETOLOGY METHOD 11/05/2024 11:32 AM [facility] MCH 33.0(H) 27.0 - 32.0 pcg LAB HEMETOLOGY METHOD 11/05/2024 11:32 AM [facility] MCHC 32.7 32.0 - 37.0 g/dL LAB HEMETOLOGY METHOD 11/05/2024 11:32 AM [facility] RDW 14.0 11.0 - 15.0 % LAB HEMETOLOGY METHOD 11/05/2024 11:32 AM [facility] Platelets 159 130 - 400 K/mcL LAB HEMETOLOGY METHOD 11/05/2024 11:32 AM [facility] MPV 10.3 7.0 - 11.0 FL LAB HEMETOLOGY METHOD 11/05/2024 11:32 AM [facility] NRBC 0.0 <1.0 % LAB HEMETOLOGY METHOD 11/05/2024 11:32 AM [facility] NRBC Absolute 0.00 <0.10 K/mcL LAB HEMETOLOGY METHOD 11/05/2024 11:32 AM EDT [facility] Blood Venous blood specimen / Unknown Venipuncture / Unknown 11/05/2024 6:51 AM EDT 11/05/2024 10:39 AM EDT us Eusebio Sprague MD LAB BLOOD ORDERABLES Final Resul t [facility] [address] [place] [address], documented in this encounter Visit Diagnoses Diagnosis Unspecified atrial fibrillation (CMS/HCC V24, CMS/HCC V28) Nontoxic single thyroid nodule Nontoxic uninodular goiter Essential (primary) hypertension Unspecified essential hypertension Heart failure, unspecified (CMS/HCC V24, CMS/HCC V28) Heart failure, unspecified Vitamin D deficiency, unspecified Diverticulum of bladder documented in this encounter Care Teams Regulatory Associate Relationship Specialty Start Date End Date Eusebio Sprague MD [address] [place] [address] [address] [place] [address] PCP - General Geriatric Medicine 11/05/24 documented as of this encounter
--- OUTSIDE RECORDS SUMMARY | 2025-01-09 14:33 | XMS_ITS | Encounter Summary ---
Author Organization [employer] Address [address] [place] [address] Care Team Providers Care Manager Of Training And Development Name Role Phone Eusebio Sprague MD Primary Care Provider [phone] Encounter Details Date Type Department Care Team (Late st Contact Info) Description 12/03/2024 Lab Requisition [facility] - Main Lab [address] [facility] [place] [address] Eusebio Sprague MD [address] [place], [place] [id number] Unspecified atrial fibrillation (CMS/HCC V24, CMS/HCC V28) [...] sec LAB COAGULATION METHOD 12/04/2024 9:04 AM [facility] INR 2.4 LAB COAGULATION METHOD 12/04/2024 9:04 AM [facility] Blood Venous blood specimen / Unknown Venipuncture / Unknown 12/04/2024 6:47 AM EDT 12/04/2024 8:37 AM EDT Eusebio Sprague MD LAB BLOOD ORDERABLES Final Resul t [facility] [address] [place] [address], documented in this encounter Visit Diagnoses Diagnosis Unspecified atrial fibrillation (CMS/HCC V24, CMS/HCC V28) documented in this encounter Care Teams Manager Of Training And Development Relationship Specialty Start Date End Date Eusebio Sprague MD [address] [place] [address] [address] [place] [address] PCP - General Geriatric Medicine 11/05/24 documented as of this encounter
--- OUTSIDE RECORDS SUMMARY | 2025-01-09 14:33 | XMS_ITS | Encounter Summary ---
Author Organization [employer] Address [address] [place] [address] Care Team Providers Care Hospice Manager Name Role Phone Eusebio Sprague MD Primary Care Provider [phone] Encounter Details Date Type Department Care Team (Late st Contact Info) Description 11/29/2024 Lab Requisition [facility] - Main Lab [address] [facility] [place] [address] Eusebio Sprague MD [address] [place], [place] [phone] Unspecified atrial fibrillation (CMS/HCC V24, CMS/HCC V28); [...] mmol/L LAB CHEMISTRY METHOD 12/01/2024 12:06 PM [facility] Potassium 4.7 3.5 - 5.5 mmol/L LAB CHEMISTRY METHOD 12/01/2024 12:06 PM [facility] Chloride 113(H) 96 - 110 mmol/L LAB CHEMISTRY METHOD 12/01/2024 12:06 PM [facility] CO2 25 21 - 32 mmol/L LAB CHEMISTRY METHOD 12/01/2024 12:06 PM [facility] Anion Gap 4 3 - 11 LAB CHEMISTRY METHOD 12/01/2024 12:06 PM [facility] Glucose 71 70 - 100 mg/dL LAB CHEMISTRY METHOD 12/01/2024 12:06 PM [facility] BUN 38(H) 5 - 25 mg/dL LAB CHEMISTRY METHOD 12/01/2024 12:06 PM [facility] Creatinine 1.61(H) 0.50 - 1.10 mg/dL LAB CHEMISTRY METHOD 12/01/2024 12:06 PM [facility] eGFR 31(L) >=60 mL/min/1. 73m2 LAB CHEMISTRY METHOD 12/01/2024 12:06 PM [facility] Comment:Calculation based on the Chronic Kidney Disease Epidemiology Collaboration (CKD-EPI) equation refit without adjustment for race. BUN/Creatinine Ratio 23.6 LAB CHEMISTRY METHOD 12/01/2024 12:06 PM [facility] Calcium 8.8 8.5 - 10.5 mg/dL LAB CHEMISTRY METHOD 12/01/2024 12:06 PM [facility] Blood Venous blood specimen / Unknown Venipuncture / Unknown 12/01/2024 6:20 AM EDT 12/01/2024 9:55 AM EDT us Eusebio Sprague MD LAB BLOOD ORDERABLES Final Resul t [facility] [address] [place] [address], * (ABNORMAL) Complete blood count (12/01/2024 6:20 [...] ORDERABLES Final Resul t Performing Organization Address [facility] Co de Phone Number [facility] [address] [place] [address], [place] [phone] * (ABNORMAL) Prothrombin time with INR (12/01/2024 [...] ORDERABLES Final Resul t Performing Organization Address City/[facility]/ZIP Co de Phone Number [facility] [address] [place] [address], [place] [phone] documented in this encounter Visit Diagnoses Diagnosis Unspecified atrial fibrillation (CMS/HCC V24, CMS/HCC V28) Essential (primary) hypertension Unspecified essential hypertension documented in this encounter Care Teams Hospice Manager Relationship Specialty Start Date End Date Eusebio Sprague MD [address] [place] [address] [address] [place] [address] PCP - General Geriatric Medicine 11/05/24 documented as of this encounter
--- OUTSIDE RECORDS SUMMARY | 2025-01-09 14:33 | XMS_ITS | Encounter Summary ---
Author Organization [employer] Address [address] [place] [address] Care Team Providers Care Straight Cutter Machine Name Role Phone Eusebio Sprague MD Primary Care Provider [phone] Encounter Details Date Type Department Care Team (Late st Contact Info) Description 12/12/2024 Lab Requisition [facility] - Main Lab [address] [facility] [address] [place] [address] Eusebio Sprague MD [address] [place], [place] [phone] Unspecified atrial fibrillation (CMS/HCC V24, CMS/HCC V28); [...] mmol/L LAB CHEMISTRY METHOD 12/16/2024 2:14 PM [facility] Potassium 4.7 3.5 - 5.5 mmol/L LAB CHEMISTRY METHOD 12/16/2024 2:14 PM [facility] Chloride 110 96 - 110 mmol/L LAB CHEMISTRY METHOD 12/16/2024 2:14 PM [facility] CO2 23 21 - 32 mmol/L LAB CHEMISTRY METHOD 12/16/2024 2:14 PM [facility] Anion Gap 8 3 - 11 LAB CHEMISTRY METHOD 12/16/2024 2:14 PM [facility] Glucose 80 70 - 100 mg/dL LAB CHEMISTRY METHOD 12/16/2024 2:14 PM [facility] BUN 38(H) 5 - 25 mg/dL LAB CHEMISTRY METHOD 12/16/2024 2:14 PM [facility] Creatinine 1.51(H) 0.50 - 1.10 mg/dL LAB CHEMISTRY METHOD 12/16/2024 2:14 PM [facility] eGFR 33(L) >=60 mL/min/1. 73m2 LAB CHEMISTRY METHOD 12/16/2024 2:14 PM [facility] Comment:Calculation based on the Chronic Kidney Disease Epidemiology Collaboration (CKD-EPI) equation refit without adjustment for race. BUN/Creatinine Ratio 25.2 LAB CHEMISTRY METHOD 12/16/2024 2:14 PM [facility] Calcium 8.7 8.5 - 10.5 mg/dL LAB CHEMISTRY METHOD 12/16/2024 2:14 PM [facility] Blood Venous blood specimen / Unknown Venipuncture / Unknown 12/16/2024 5:01 AM EDT 12/16/2024 11:06 AM EDT us Fahim A Celestine MD LAB BLOOD ORDERABLES Final Resul t [facility] [address] [place] [address], * (ABNORMAL) Complete blood count (12/16/2024 5:01 AM EDT) WBC 4.1(L) 4.8 - 10.8 K/mcL LAB HEMETOLOGY METHOD 12/16/2024 11:52 AM EDT [facility] RBC 3.60(L) 3.80 - 4.80 M/mcL LAB HEMETOLOGY METHOD [facility] Hemoglobin 11.3(L) 11.5 - 16.0 g/dL LAB HEMETOLOGY METHOD 12/16/2024 11:52 AM [facility] Hematocrit 36.7 35.0 - 47.0 % LAB HEMETOLOGY METHOD 12/16/2024 11:52 AM [facility] MCV 100.8(H) 79.0 - 98.0 FL LAB HEMETOLOGY METHOD 12/16/2024 11:52 AM [facility] MCH 31.0 27.0 - 32.0 pcg LAB HEMETOLOGY METHOD 12/16/2024 11:52 AM EDT [facility] MCHC 30.8(L) 32.0 - 37.0 g/dL LAB HEMETOLOGY METHOD 12/16/2024 11:52 AM [facility] RDW 14.0 11.0 - 15.0 % LAB HEMETOLOGY METHOD 12/16/2024 11:52 AM [facility] Platelets 168 130 - 400 K/mcL LAB HEMETOLOGY METHOD 12/16/2024 11:[facility] MPV 9.8 7.0 - 11.0 FL LAB HEMETOLOGY METHOD 12/16/2024 11:52 AM EDT [facility] NRBC 0.0 <1.0 % LAB HEMETOLOGY METHOD 12/16/2024 11:52 AM EDT [facility] NRBC Absolute 0.00 <0.10 K/mcL LAB HEMETOLOGY METHOD 12/16/2024 11:52 AM EDT [facility] Blood Venous blood specimen / Unknown Venipuncture / Unknown 12/16/2024 5:01 AM EDT 12/16/2024 11:06 AM EDT Eusebio Sprague MD LAB BLOOD ORDERABLES Final Resul t Performing Organization Address City/[facility]/ZIP Co de Phone Number [facility] [address] [place] [address], [place] [phone] * (ABNORMAL) Prothrombin time with INR (12/16/2024 5:01 AM EDT) Protime 29.8(H) 10.6 - 13.9 sec LAB COAGULATION METHOD 12/16/2024 11:25 AM EDT [facility] INR 2.4 LAB COAGULATION METHOD 12/16/2024 11:25 AM EDT [facility] Blood Venous blood specimen / Unknown Venipuncture / Unknown 12/16/2024 5:01 AM EDT 12/16/2024 11:06 AM EDT Eusebio Sprague MD LAB BLOOD ORDERABLES Final Resul t Performing Organization Address City/[facility]/ZIP Co de Phone Number [facility] [address] [place] [address], [place] [phone] documented in this encounter Visit Diagnoses Diagnosis Unspecified atrial fibrillation (CMS/HCC V24, CMS/HCC V28) Essential (primary) hypertension Unspecified essential hypertension documented in this encounter Care Teams Straight Cutter Machine Relationship Specialty Start Date End Date Eusebio Sprague MD [address] [place] [address] [address] [place] [address] PCP - General Geriatric Medicine 11/05/24 documented as of this encounter
--- OUTSIDE RECORDS SUMMARY | 2025-01-09 14:33 | XMS_ITS | Patient Health Record ---
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 nt) use of anticoagulants (Z79.01) Active confirmed Problem 11547788 Iron deficiency anemia (D50.9) Active confirmed Problem 30639337 Colon polyp (K63.5) Active confirmed Problem 82738547 Erosive esophagi tis (K22.10) Active confirmed Plan Of Treatment Future Test Test Name Order Date UPPER GI ENDOSCOPY 03/01/2016 COLONOSCOPY 03/01/2016 Insurance Providers Payer Name Payer Address Payer Phone Subscriber Number Group Number Insured Name Patient Relationship to Insured Coverage Start Date Coverage End Date [facility] [address] [facility] [phone] [id number] CHRISTAL ROGERS Self - patient is the insured Medical (General) History Medical History History ICD Code colonoscopy 07-02-10 hemorrhoids history of intermittent rectal itching a nd discomfort breast cancer on the left, s tatus post mastectomy and lymph node resetion in 1992 hypertension melanoma shingles with post-hepatic neuralgia Denies ME,DM,CVA,Lung disease,renal dise ase Atrial fibrillation blood clots Surgical History Surgery Date(Month/Year) mastectomy and lymph node resection in -left breast removal of melanoma from the back hysterectomy for fibroid disease lumpectomy, right breast 2013
--- OUTSIDE RECORDS SUMMARY | 2025-01-09 14:33 | XMS_ITS | Encounter Summary ---
Author Organization [employer] Address [address] [place] [address] Care Team Providers Care Supervisor [employer] Production Name Role Phone Eusebio Sprague MD Primary Care Provider [phone] Encounter Details Date Type Department Care Team (Late st Contact Info) Description 11/12/2024 Lab Requisition [facility] - Main Lab [address] [facility] [place] [address] Eusebio Sprague MD [address] [place], [place] [phone] Unspecified atrial fibrillation (CMS/HCC V24, CMS/HCC V28) [...] V28) documented in this encounter Care Teams Supervisor Ski Production Relationship Specialty Start Date End Date Eusebio Sprague MD [address] [place], [place] [phone] PCP - General Geriatric Medicine 11/05/24 documented as of this encounter
--- OUTSIDE RECORDS SUMMARY | 2025-01-09 14:33 | XMS_ITS | Clinical Summary ---
Author Organization [address] Address [address] [place] [address] Phone Care Team Providers Care Carpenter Repair Name Role Phone Eusebio Sprague MD Primary Care Provider [phone] Encounters Date Type Department Care Team Description 12/24/2024 Lab Requisition [facility] [address] [place] [phone] Eusebio Sprague MD Unspecified atrial fibrillation (CMS/HCC V24, CMS/HCC V28) 12/20/2024 Lab Requisition [facility] [address] [place] [phone] Eusebio Sprague MD Unspecified atrial fibrillation (CMS/HCC V24, CMS/HCC V28); Essential (primary) hypertension 12/17/2024 Lab Requisition [facility] [address] [place] [phone] Eusebio Sprague MD Unspecified atrial fibrillation (CMS/HCC V24, CMS/HCC V28) 12/12/2024 Lab Requisition [facility] [address] [place] [phone] Eusebio Sprague MD Unspecified atrial fibrillation (CMS/HCC V24, CMS/HCC V28); Essential (primary) hypertension 12/11/2024 Lab Requisition [facility] [address] [place] [phone] Eusebio Sprague MD Frequency of micturition 12/10/2024 Lab Requisition [facility] [address] [place] [phone] Eusebio Sprague MD Unspecified atrial fibrillation (CMS/HCC V24, CMS/HCC V28) 12/05/2024 Lab Requisition [facility] [address] [place] [phone] Eusebio Sprague MD Unspecified atrial fibrillation (CMS/HCC V24, CMS/HCC V28); Essential (primary) hypertension 12/03/2024 Lab Requisition [facility] [address] [place] [phone] Eusebio Sprague MD Unspecified atrial fibrillation ([facility]/HCC V24, CMS/HCC V28) 11/29/2024 Lab Requisition [facility] [address] [place] [phone] Eusebio Sprague MD Unspecified atrial fibrillation ([facility]/HCC V24, CMS/HCC V28); Essential (primary) hypertension 11/26/2024 Lab Requisition [facility] [address] [place] [phone] Eusebio Sprague MD Unspecified atrial fibrillation ([facility]/HCC V24, CMS/HCC V28) 11/24/2024 Lab Requisition [facility] [address] [place] [phone] Reena Salmon PA Heart failure, unspecified (CMS/HCC V24, CMS/HCC V28); Vitamin D deficiency, unspecified; Hypothyroidism, unspecified; Unspecified atrial fibrillation (CMS/HCC V24, CMS/HCC V28) 11/15/2024 Lab Requisition [facility] [address] [place] [phone] Eusebio Sprague MD Unspecified atrial fibrillation (CMS/HCC V24, CMS/HCC V28); Heart failure, unspecified (CMS/HCC V24, CMS/HCC V28) 11/12/2024 Lab Requisition [facility] [address] [place] [address] Eusebio Sprague MD Unspecified atrial fibrillation ([facility]/HCC V24, [facility]/HCC V28) 11/08/2024 Lab Requisition [facility] [address] [place] [phone] Eusebio Sprague MD Unspecified atrial fibrillation ([facility] V24, [facility] V28); Heart failure, unspecified ([facility] V24, [facility] V28) 11/05/2024 Lab Requisition [facility] [address] [place] [phone] Eusebio Sprague MD Unspecified atrial fibrillation ([facility] V24, [facility] V28) 11/05/2024 Lab Requisition [facility] [address] [place] [address] Eusebio Sprague MD Unspecified atrial fibrillation ([facility] V24, [facility] V28); Nontoxic single thyroid nodule; Essential (primary) hypertension; Heart failure, unspecified ([facility] V24, [facility] V28); Vitamin D deficiency, unspecified; Diverticulum [...] LAB COAGULATION METHOD 12/22/2024 11:38 AM EDT [facility] INR 2.2 LAB COAGULATION METHOD 12/22/2024 11:38 AM EDT [facility] Blood Venous blood specimen / Unknown Venipuncture / Unknown 12/22/2024 6:15 AM EDT 12/22/2024 10:44 AM EDT us Eusebio Sprague MD LAB BLOOD ORDERABLES Final Resul t [facility] [address] [place] [address], * (ABNORMAL) Complete blood count (12/22/2024 6:15 AM EDT) Only the most recent of7 resultswithin the time period is included. WBC 4.7(L) 4.8 - 10.8 K/mcL LAB HEMETOLOGY METHOD 12/22/2024 11:59 AM EDT [facility] RBC 3.70(L) 3.80 - 4.80 M/mcL LAB HEMETOLOGY METHOD 12/22/2024 11:59 AM [facility] Hemoglobin 11.3(L) 11.5 - 16.0 g/dL LAB HEMETOLOGY METHOD 12/22/2024 11:59 AM [facility] Hematocrit 36.4 35.0 - 47.0 % LAB HEMETOLOGY METHOD 12/22/2024 11:59 AM [facility] MCV 99.5(H) 79.0 - 98.0 FL LAB HEMETOLOGY METHOD 12/22/2024 11:59 AM [facility] MCH 30.9 27.0 - 32.0 pcg LAB HEMETOLOGY METHOD 12/22/2024 11:59 AM [facility] MCHC 31.0(L) 32.0 - 37.0 g/dL LAB HEMETOLOGY METHOD 12/22/2024 11:59 AM [facility] RDW 13.9 11.0 - 15.0 % LAB HEMETOLOGY METHOD 12/22/2024 11:59 AM [facility] Platelets 153 130 - 400 K/mcL LAB HEMETOLOGY METHOD 12/22/2024 11:59 AM [facility] MPV 10.1 7.0 - 11.0 FL LAB HEMETOLOGY METHOD 12/22/2024 11:59 AM [facility] NRBC 0.0 <1.0 % LAB HEMETOLOGY METHOD 12/22/2024 11:59 AM [facility] NRBC Absolute 0.00 <0.10 K/mcL LAB HEMETOLOGY METHOD 12/22/2024 11:59 AM [facility] Blood Venous blood specimen / Unknown Venipuncture / Unknown 12/22/2024 6:15 AM EDT 12/22/2024 10:44 AM EDT Eusebio Sprague MD LAB BLOOD ORDERABLES Final Resul t [facility] [address] [place] [address], * (ABNORMAL) Basic metabolic panel (12/22/2024 6:15 AM EDT) Only the most recent of5 resultswithin the time period is included. Sodium 140 133 - 145 mmol/L LAB CHEMISTRY METHOD 12/22/2024 1:13 PM T [facility] Potassium 4.8 3.5 - 5.5 mmol/L LAB CHEMISTRY METHOD 12/22/2024 1:13 PM [facility] Chloride 109 96 - 110 mmol/L LAB CHEMISTRY METHOD 12/22/2024 1:13 PM [facility] CO2 25 21 - 32 mmol/L LAB CHEMISTRY METHOD [facility]24 [facility] Anion Gap 6 3 - 11 LAB CHEMISTRY METHOD 12/22/2024 1:13 PM [facility] Glucose 72 70 - 100 mg/dL LAB CHEMISTRY METHOD 12/22/2024 1:13 PM [facility] BUN 33(H) 5 - 25 mg/dL LAB CHEMISTRY METHOD 12/22/2024 1:13 PM [facility] Creatinine 1.53(H) 0.50 - 1.10 mg/dL LAB CHEMISTRY METHOD 12/22/2024 1:13 [facility] eGFR 33(L) >=60 mL/min/1. 73m2 LAB CHEMISTRY METHOD 12/22/2024 1:13 PM [facility] Comment:Calculation based on the Chronic Kidney Disease Epidemiology Collaboration (CKD-EPI) equation refit without adjustment for race. BUN/Creatinine Ratio 21.6 LAB CHEMISTRY METHOD 12/22/2024 1:13 PM [facility] Calcium 8.7 8.5 - 10.5 mg/dL LAB CHEMISTRY METHOD 12/22/2024 1:13 PM EDT [facility] Blood Venous blood specimen / Unknown Venipuncture / Unknown 12/22/2024 6:15 AM EDT 12/22/2024 10:44 AM EDT us Eusebio Sprague MD LAB BLOOD ORDERABLES Final Resul t [facility] [address] [place] [address], [place] [phone] * (ABNORMAL) Urinalysis with reflex microscopic (12/10/2024 4:30 AM EDT) Specific [place] Urine 1.014 1.003 - 1.030 LAB URINALYSIS - AUTOMATED METHOD 12/11/2024 10:24 AM [facility] pH, Urine 5.5 5.0 - 8.0 pH LAB URINALYSIS - AUTOMATED METHOD 12/11/2024 10:24 AM [facility] Leukocytes, Urine Large(A) Negative LAB URINALYSIS - AUTOMATED METHOD 12/11/2024 10:24 AM [facility] Nitrite, Urine Negative Negative LAB [...] - AUTOMATED METHOD 12/11/2024 10:24 AM EDT [facility] Bilirubin, Urine Negative Negative LAB URINALYSIS - AUTOMATED METHOD 12/11/2024 10:24 AM EDT [facility] Blood, Urine Small(A) Negative [...] MD LAB URINE ORDERABLES Final Resul t [facility] [address] [place] [address], * (ABNORMAL) Culture urine (12/10/2024 4:30 AM EDT) Culture, Urine >=100,000 CFU/mL Enterococcus faecium(A) RAMA 12/14/2024 8:27 AM EDT [facility] Comment: Edited result: Previously reported as Gram Positive Cocci on 12/12/2024 at 1105 EDT. Culture, Urine 10,000-49,000 CFU/mL Enterococcus faecalis(A) RAMA 12/14/2024 8:27 AM EDT [facility] Comment: The organism value for this result has been updated. These results have been appended to the previously preliminary verified report. Urine Urine specimen obtained by clean catch procedure / Unknown 12/10/2024 4:30 AM EDT 12/11/2024 9:17 AM EDT Narrative [facility] - 12/14/2024 8:27 AM EDT [...] MICROBIOLOGY - GENERAL ORDER GONZALEZ Final Result [facility] [address] [place] [address], * Vitamin B12 and folate (11/24/2024 6:19 [...] ORDERABLES Final Resu lt Performing Organization Address City/[facility]/ZIP Co de Phone Number [facility] [address] [place] [address], [place] [phone] * (ABNORMAL) Vitamin D 25 hydroxy (11/24/2024 [...] ORDERABLES Final Resu lt Performing Organization Address City/[facility]/ZIP Co de Phone Number [facility] [address] [place] [address], [place] [phone] * (ABNORMAL) Thyroid stimulating hormone (11/24/2024 6:19 [...] ORDERABLES Final Resu lt Performing Organization Address [facility]/ZIP Co de Phone Number [facility] [address] [place] [address], [place] [phone] * Magnesium (11/24/2024 6:19 AM EDT) Only the most recent of2 resultswithin the time period is included. [facility] Magnesium 2.4 1.9 - 2.6 mg/dL LAB CHEMISTRY METHOD 11/24/2024 11:02 AM EDT [facility] Blood Venous blood specimen / Unknown Venipuncture / Unknown 11/24/2024 6:19 AM EDT 11/24/2024 10:10 AM EDT us Reena FOSTER LAB BLOOD ORDERABLES Final Resu lt Performing Organization Address [facility] de Phone Number [facility] [address] [place] [address], [place] [phone] * (ABNORMAL) Comprehensive metabolic panel (11/24/2024 6:19 AM EDT) Only the most recent of2 resultswithin the time period is included. [facility] Sodium 139 133 - 145 mmol/L LAB CHEMISTRY METHOD 11/24/2024 11:28 AM EDT [facility] Potassium 5.1 3.5 - 5.5 mmol/L LAB CHEMISTRY METHOD 11/24/2024 11:28 AM EDT [facility] Chloride 108 96 - 110 mmol/L LAB CHEMISTRY METHOD 11/24/2024 11:28 AM EDT [facility] CO2 25 21 - 32 mmol/L LAB CHEMISTRY METHOD 11/24/2024 11:28 AM EDT [facility] Anion Gap 6 3 - 11 LAB CHEMISTRY METHOD 11/24/2024 11:28 AM EDT [facility] Glucose 66(L) 70 - [...] ORDERABLES Final Resu lt Performing Organization Address [facility]/ZIP Co de Phone Number [facility] [address] [place] [address], [place] [phone] * Folate (11/05/2024 6:51 AM EDT) Folate 8.7 2.8 - 17.0 ng/ml LAB CHEMISTRY METHOD 11/05/2024 12:33 PM EDT [facility] Blood Venous blood specimen / Unknown Venipuncture / Unknown 11/05/2024 6:51 AM EDT 11/05/2024 10:39 AM EDT Eusebio Sprague MD LAB BLOOD ORDERABLES Final Resul t Performing Organization Address [facility] Co de Phone Number [facility] [address] [place] [address], [place] [phone] * Vitamin B12 (11/05/2024 6:51 AM EDT) Vitamin B-12 387 250 - 900 pcg/mL LAB CHEMISTRY METHOD 11/05/2024 12:33 PM EDT [facility] Blood Venous blood specimen / Unknown Venipuncture / Unknown 11/05/2024 6:51 AM EDT 11/05/2024 10:39 AM EDT Eusebio Sprague MD LAB BLOOD ORDERABLES Final Resul t Performing Organization Address City/[facility]/ZIP Co de Phone Number [facility] [address] [place] [address], [place] [phone] from Last 3 Months Insurance [employer] Care Teams Carpenter Repair Relationship Specialty Start Date End Date Eusebio Sprague MD [address] [place] [address] [address] [place] [address] PCP - General Geriatric Medicine 11/05/24
--- OUTSIDE RECORDS SUMMARY | 2025-01-09 14:33 | XMS_ITS | Encounter Summary ---
Author Organization [employer] Address [address] [place] [address] Care Team Providers Care Non Destructive Evaluation Technician Name Role Phone Eusebio Sprague MD Primary Care Provider [phone] Encounter Details Date Type Department Care Team (Late st Contact Info) Description 11/08/2024 Lab Requisition [facility] - Main Lab [address] [facility] [place] [address] Eusebio Sprague MD [address] [place], [place] [phone] Unspecified atrial fibrillation (CMS/HCC V24, CMS/HCC V28); [...] (CMS/HCC V24, CMS/HCC V28) Heart failure, unspecified ([facility] V24, [facility] V28) documented in this encounter Results * [...] MD LAB BLOOD ORDERABLES Final Resul t [facility] [address] [place] [address], * (ABNORMAL) Complete blood count (11/10/2024 6:08 AM EDT) WBC 6.8 4.8 - 10.8 K/mcL LAB HEMETOLOGY METHOD 11/10/2024 1:46 PM EDT [facility] RBC 3.40(L) 3.80 - 4.80 M/mcL LAB HEMETOLOGY METHOD 11/10/2024 1:46 PM EDT [facility] Hemoglobin 11.0(L) 11.5 - 16.0 g/dL LAB HEMETOLOGY METHOD 11/10/2024 1:46 PM EDT [facility] Hematocrit 34.4(L) 35.0 - 47.0 % LAB HEMETOLOGY METHOD 11/10/2024 1:46 PM EDT [facility] MCV 100.6(H) 79.0 - 98.0 FL LAB HEMETOLOGY METHOD 11/10/2024 1:46 PM EDT [facility] MCH 32.2(H) 27.0 - 32.0 pcg LAB HEMETOLOGY METHOD 11/10/2024 1:46 PM EDT [facility] MCHC 32.0 32.0 - 37.0 g/dL LAB HEMETOLOGY METHOD 11/10/2024 1:46 PM EDT [facility] RDW 14.5 11.0 - 15.0 % LAB HEMETOLOGY METHOD 11/10/2024 1:46 PM EDT [facility] Platelets 160 130 - 400 K/mcL LAB HEMETOLOGY METHOD 11/10/2024 1:46 PM EDT [facility] MPV 10.1 7.0 - 11.0 FL LAB HEMETOLOGY METHOD 11/10/2024 1:46 PM EDT [facility] NRBC 0.0 <1.0 % LAB HEMETOLOGY METHOD 11/10/2024 1:46 PM EDT [facility] NRBC Absolute 0.00 <0.10 K/mcL LAB HEMETOLOGY METHOD 11/10/2024 1:46 PM EDT [facility] Blood Venous blood specimen / Unknown Venipuncture / Unknown 11/10/2024 6:08 AM EDT 11/10/2024 11:46 AM EDT us Eusebio Sprague MD LAB BLOOD ORDERABLES Final Resul t [facility] [address] [place] [address], [place] [phone] * (ABNORMAL) Prothrombin time with INR (11/10/2024 6:08 AM EDT) Protime 33.8(H) 10.6 - 13.9 sec LAB COAGULATION METHOD 11/10/2024 12:48 PM EDT [facility] INR 2.7 LAB COAGULATION METHOD 11/10/2024 12:48 PM EDT [facility] Blood Venous blood specimen / Unknown Venipuncture / Unknown 11/10/2024 6:08 AM EDT 11/10/2024 11:46 AM EDT us Eusebio Sprague MD LAB BLOOD ORDERABLES Final Resul t [facility] [address] [place], [place] [address] [phone] documented in this encounter Visit Diagnoses Diagnosis Unspecified atrial fibrillation (CMS/[facility] V24, CMS/HCC V28) Heart failure, unspecified (CMS/[facility] V24, CMS/[facility] V28) Heart failure, unspecified documented in this encounter Care Teams Non Destructive Evaluation Technician Relationship Specialty Start Date End Date Eusebio Sprague MD [address] [place] [address] [address] [place] [address] PCP - General Geriatric Medicine 11/05/24 documented as of this encounter
--- OUTSIDE RECORDS SUMMARY | 2025-01-09 14:33 | XMS_ITS | Encounter Summary ---
Author Organization [employer] Address [address] [place] [address] Care Team Providers Care Fixed Wing Aircraft Flight Mechanic Name Role Phone Eusebio Sprague MD Primary Care Provider [phone] Encounter Details Date Type Department Care Team (Late st Contact Info) Description 11/05/2024 Lab Requisition [facility] - Main Lab [address] [facility] [place] [address] Eusebio Sprague MD [address] [place], [place] [phone] Unspecified atrial fibrillation (CMS/HCC V24, CMS/HCC V28) [...] sec LAB COAGULATION METHOD 11/06/2024 9:24 AM [facility] INR 1.6 LAB COAGULATION METHOD 11/06/2024 9:24 AM [facility] Blood Venous blood specimen / Unknown Venipuncture / Unknown 11/06/2024 7:06 AM EDT 11/06/2024 9:01 AM EDT Eusebio Sprague MD LAB BLOOD ORDERABLES Final Resul t [facility] ([facility]) [facility] [address] [place] [address], documented in this encounter Visit Diagnoses Diagnosis Unspecified atrial fibrillation (CMS/HCC V24, CMS/HCC V28) documented in this encounter Care Teams Fixed Wing Aircraft Flight Mechanic Relationship Specialty Start Date End Date Eusebio Sprague MD [address] [place] [address] [address] [place] [address] PCP - General Geriatric Medicine 11/05/24 documented as of this encounter
--- OUTSIDE RECORDS SUMMARY | 2025-01-09 14:33 | XMS_ITS | Encounter Summary ---
Author Organization [employer] Address [address] [place] [address] Care Team Providers Care Rip Saw Operator Name Role Phone Eusebio Sprague MD Primary Care Provider [phone] Encounter Details Date Type Department Care Team (Late st Contact Info) Description 12/10/2024 Lab Requisition [facility] - Main Lab [address] [facility] [place] [address] Eusebio Sprague MD [address] [place], [place] [phone] Unspecified atrial fibrillation (CMS/HCC V24, CMS/HCC V28) [...] sec LAB COAGULATION METHOD 12/11/2024 10:10 AM [facility] INR 2.2 LAB COAGULATION METHOD 12/11/2024 10:10 AM [facility] Blood Venous blood specimen / Unknown Venipuncture / Unknown 12/11/2024 6:52 AM EDT 12/11/2024 9:39 AM EDT Eusebio Sprague MD LAB BLOOD ORDERABLES Final Resul t [facility] ([facility]) [facility] [address] [place] [address], documented in this encounter Visit Diagnoses Diagnosis Unspecified atrial fibrillation (CMS/HCC V24, CMS/HCC V28) documented in this encounter Care Teams Rip Saw Operator Relationship Specialty Start Date End Date Eusebio Sprague MD [address] [place] [address] [address] [place] [address] PCP - General Geriatric Medicine 11/05/24 documented as of this encounter
== END 2025-01-09 14:17 | disposition home or self-care (01) ==
LOC: HO.HMCH 13:17
PROVIDERS: PCP Physician Assistant; Visit Provider Internal Medicine
DX: H61.23 Impacted cerumen, bilateral (principal)

== ENCOUNTER → 2025-01-09 13:16 | Outpatient (BNVA) | payer MEDICARE, SELFPAY | PROVIDERS: PCP Physician Assistant; Visit Provider Internal Medicine | DX: H61.23 Impacted cerumen, bilateral (principal); Z13.31 Encounter for screening for depression | CPT/HCPCS: 69209; 96127; 99212 ==

== ENCOUNTER 2025-01-29 14:26 | Outpatient (AMB) | payer MEDICARE, SELFPAY ==
--- NOTE | 2025-01-29 14:33 | MHC.OFFVISCO ---
Intake Intake Visit Reasons: Anticoagulation Allergies No Known Allergies (No Known Allergies*) Allergy (Verified 01/21/25 14:47) Nursing Note INR received from [facility] nurse Rachael, INR today is 2.3, T/c to nurse. No answer. VM left to keep same dose and repeat INR in 1 week. Told to call [facility] back if any changes with pt. Denies any signs and symptoms of any unusual bruising, bleeding or clotting Medication or supplements: no changes Diet: no changes Activity: as leena Dose: 3mg X 6 days and 2mg X 1 day (Sun) Anti-Coag Initial Assessment Social Hx Patient Tobacco Use Status: Never used Tobacco alcohol intake: never Coding Level of Care Code Est Patient Level 1 Diagnoses Current use of anticoagulant therapy Z79.01 Results AMB INR Fingerstick AMB INR Fingerstick 2.3 Last Edit by Erika Lloyd, RN on 01/29/25 14:31 [facility]NA Assessment & Plan Assessment & Plan (1) Current use of anticoagulant therapy: Code(s): Z79.01 - senior care (current) use of anticoagulants Category: Medical
--- OUTSIDE RECORDS SUMMARY | 2025-01-29 18:14 | XMS_ITS | Clinical Summary ---
Author Organization [facility] [address] [place] [address] Phone Care Team Providers Care Collating Machine Operator Name Role Phone Ruben Dick Primary Care Provider [phone] Allergies No known active allergies Medications amiodarone [...] Done Comments Pneumococcal Vaccine: 50+ Ye ars (2 of 2 - PCV) 03/13/2018 03/13/2017 Influenza Vaccine (#1) 2024 Hepatitis B Vaccine Aged Out No longe r eligible based on patient's age to complete this topic Insurance Care Teams Collating Machine Operator Relationship Specialty Start Date End Date Ruben Dick PA [address] [place] [address], [address] [place] [address] PCP - General Physician Maintenance Groundskeeper 07/19/21
--- OUTSIDE RECORDS SUMMARY | 2025-01-29 18:14 | XMS_ITS | Patient Health Record ---
Author Organization [facility] Address [address] [place] [address] Care Team Providers Care Clamp Jig Assembler Name Role Phone Jose Cruz Alvarez MD Primary Care Provider Unavaila Ryan Bentley Jr Unavailable Marjan Maya Unavailable Unavailable Reason For Referral No Information Medications Medication SIG (Take, Route, Frequency, Duration) Notes Start Date End Date Status Omeprazole 20 MG 1 capsule Orally Once a day; Duration: 90 days Active Warfarin Sodium 2 MG [...] Problem Status W/U Status Risk Notes Problem Long-term current use of anticoagulant (742446897) assisted (current) use of anticoagulants (Z79.01) Active confirmed Problem Iron deficiency anemia (15583963) Iron deficiency anemia (D50.9) Active confirmed Problem Polyp colon (61287144) Colon polyp (K63.5) Active confirmed Problem Erosive esophagitis (32681847) Erosive esophagitis (K22.10) Active confirmed Plan Of Treatment Future Test Test Name Order Date UPPER GI ENDOSCOPY 03/01/2016 COLONOSCOPY 03/01/2016 Insurance Providers Payer Name Payer Address Payer Phone Subscriber Number Group Number Insured Name Patient Relationship to Insured Coverage Start Date Coverage End Date [facility] [address] [facility] [id number] CHRISTAL ROGERS Self - patient is the insured Medical (General) History Medical History History ICD Code colonoscopy 07-02-10 hemorrhoids history of intermittent rectal itching a nd discomfort breast cancer on the left, s tatus post mastectomy and lymph node resetion in 1992 hypertension melanoma shingles with post-hepatic neuralgia Denies TX,DM,CVA,Lung disease,renal dise ase Atrial fibrillation blood clots Surgical History Surgery Date(Month/Year) mastectomy and lymph node resection in -left breast removal of melanoma from the back hysterectomy for fibroid disease lumpectomy, right breast 2014
== END 2025-01-29 14:40 | disposition home or self-care (01) ==
LOC: HO.ACS 14:26
PROVIDERS: PCP Physician Assistant; Visit Provider Internal Medicine Medical Oncology
DX: Z79.01 Long term (current) use of anticoagulants (principal)

== ENCOUNTER → 2025-01-29 14:26 | Outpatient (BNVA) | payer MEDICARE, SELFPAY | PROVIDERS: PCP Physician Assistant; Visit Provider Internal Medicine Medical Oncology | DX: I48.0 Paroxysmal atrial fibrillation (principal); Z79.01 Long term (current) use of anticoagulants; Z51.81 Encounter for therapeutic drug level monitoring | CPT/HCPCS: 99211 ==

== ENCOUNTER 2025-02-02 12:08 | Outpatient (REF) | payer MEDICARE, SELFPAY ==
--- NOTE | ~2025-02-02 | XR_ITS ---
EXAMINATION: XR ANKLE, LEFT CLINICAL INFORMATION: M25.572 - Pain in left ankle and joints of left foot COMPARISON: X-ray 12/12/2024 TECHNIQUE: AP, lateral, and mortise views of the left ankle. FINDINGS: Bone mineralization is slightly decreased. Redemonstrated oblique fracture of the distal fibular metadiaphysis extending to the syndesmosis. Stable position and alignment. There is healing progression, with callus/periosteal reaction. Asymmetric prominence of the medial tibiotalar joint space, could be related to positioning/technique. Subchondral lucency in the medial talar dome could be related to bone demineralization versus evolving osteochondral lesion. No new acute fracture seen. Vascular calcification. Soft tissue swelling. XR/XR ankle LT min 3V IMPRESSION: Healing fibular fracture, stable position and alignment. Medial talar dome findings could represent bone demineralization versus evolving osteochondral lesion. Asymmetric ankle mortise, could be related to positioning/technique. Electronically signed by: Miller Presley MD 02/02/2025 02:27 PM EDT
--- OUTSIDE RECORDS SUMMARY | 2025-02-03 15:38 | XMS_ITS | Clinical Summary ---
Author Organization [facility] [address] [place] [address] Phone Care Team Providers Care Dispersion Mixer Name Role Phone Ruben Dick Primary Care Provider [phone] Allergies No known active allergies Medications amiodarone [...] to complete this topic Insurance Care Teams Dispersion Mixer Relationship Specialty Start Date End Date Ruben Dick PA [address] [place] [address], [address] [place] [address] PCP - General Physician Strategies Analyst 07/19/21
--- OUTSIDE RECORDS SUMMARY | 2025-02-03 15:38 | XMS_ITS | Patient Health Record ---
Author Organization [facility] Address [address] [place] [address] Care Team Providers Care Supervisor Inspection Room Name Role Phone Jose Cruz Alvarez MD Primary Care Provider Unavaila Ryan Bentley Jr Unavailable [phone] Marjan Maya Unavailable Unavailable Reason For Referral [...] Notes Problem Long-term current use of anticoagulant (931478274) [facility] (current) use of anticoagulants (Z79.01) Active confirmed Problem Iron deficiency anemia (45344985) Iron deficiency anemia (D50.9) Active confirmed Problem Polyp colon (27652568) Colon polyp (K63.5) Active confirmed Problem Erosive esophagitis (15889822) Erosive esophagitis (K22.10) Active confirmed Plan Of Treatment Future Test Test Name Order Date UPPER GI ENDOSCOPY 03/01/2016 COLONOSCOPY 03/01/2016 Insurance Providers Payer Name Payer Address Payer Phone Subscriber Number Group Number Insured Name Patient Relationship to Insured Coverage Start Date Coverage End Date [facility] [address] [facility] [place] [phone] [id number] CHRISTAL ROGERS Self - patient is the insured Medical (General) History Medical History History ICD Code colonoscopy 07-02-10 hemorrhoids history of intermittent rectal itching a nd discomfort breast cancer on the left, s tatus post mastectomy and lymph node resetion in 1992 hypertension melanoma shingles with post-hepatic neuralgia Denies HI,DM,CVA,Lung disease,renal dise ase Atrial fibrillation blood clots Surgical History Surgery Date(Month/Year) mastectomy and lymph node resection in -left breast removal of melanoma from the back hysterectomy for fibroid disease lumpectomy, right breast 2014
== END 2025-02-02 12:09 | disposition home or self-care (01) ==
LOC: HO.HOSX 12:08
PROVIDERS: Visit Provider Physician Assistant
DX: S82.63XD Displaced fracture of lateral malleolus of unspecified fibula, subsequent encounter for closed fracture with routine healing (principal); X58.XXXD Exposure to other specified factors, subsequent encounter
CPT/HCPCS: 73610; 99212

== ENCOUNTER 2025-02-02 14:03 | Outpatient (AMB) | payer MEDICARE, SELFPAY ==
--- NOTE | 2025-02-02 14:14 | MHC.OFFVIS ---
Intake Visit Reasons: OV- left distal fibular fracture with x-rays Intake Note: Rosy is an 89 year old female presents today for her follow up visit for her left lateral malleolus fracture, DOI 10/28/24. At her last visit she was transitioned into a tall walking boot, she may begin weight bearing as tolerated with walker. She can begin physical therapy for gait training and strengthening exercises. Follow up in 8 weeks with x-rays. Today patient reports she is doing well. She is not experiencing any pain or discomfort at the moment. Allergies No Known Allergies (No Known Allergies*) Allergy (Verified 02/02/25 14:18) Medication List - Last Reconciled 02/02/25 by Rebecca Velez PA-C acetaminophen 1,000 mg PO Q6H PRN amiodarone 100 mg (1/2 x 200 mg) PO DAILY 90 days atorvastatin 20 mg PO DAILY calcium carbonate (Calcium 600) 600 mg PO DAILY comp.stocking,knee,long,medium Need for 15-20 mmHg compression furosemide (Lasix) 20 mg PO DAILY 14 days metoprolol succinate ER 50 mg PO DAILY 90 days omeprazole 20 mg PO DAILY PRN omeprazole 20 mg PO DAILY PRN raloxifene 60 mg PO DAILY tamsulosin 0.4 mg PO BEDTIME walker (Ultra-Light Rollator misc) As directed warfarin 3 mg See Protocol PO 6XW warfarin 2 mg See Protocol PO QWEEK HPI HPI OV- left distal fibular fracture with x-rays: Details: 89 yo female returns to the office today f/u left ankle fracture. She has been wbat in a boot and working with PT. She is doing well and denies pain. [facility] Medical History PAF (paroxysmal atrial fibrillation) Essential hypertension Pulmonary hypertension Non-rheumatic tricuspid stenosis with insufficiency Abnormal myocardial perfusion study Chronic heart failure with preserved ejection fraction (HFpEF) Hiatal hernia Diverticulitis Gastro-esophageal reflux disease without esophagitis High cholesterol Hypertension Atrial fibrillation Surgical History S/P total abdominal hysterectomy History of cardioversion H/O mastectomy Family History Father Heart disease Mother Colon cancer Social History Household Members: None Housing: Apartment Are you a primary rn coronary care unit to a significant other at home: No Do you presently have visiting nurse or other home services: No Alcohol intake: never Patient Tobacco Use Status: Never used Tobacco e-Cigarette/Vaping Use: Never Used Second Hand Smoke Exposure: No Advance Directives Date on File: 01/16/20 service: No Current occupational status: retired Cognitive needs: No Hearing needs: No Vision needs: No Review of Systems Const All systems reviewed & are unremarkable except as noted in HPI and below Physical Exam Extrem Other: Left ankle is normal to inspection. No erythema or swelling. No discomfort over the fracture site. No pain over the syndesmosis. Calf is supple and nontender neurovascularly intact. Results Reviewed Results Reviewed: X-rays of the left ankle obtained in the office today and reviewed by me show stable fracture through the distal fibula with interval healing Assessment & Plan Assessment & Plan (1) Fracture of lateral malleolus: Code(s): S82.63XA - Displaced fracture of lateral malleolus of unspecified fibula, initial encounter for closed fracture Category: Medical Plan: She was transition to a lace up aso brace and will continue with PT to progress with strength and conditioning. If there are any concerns going forward, she will see me back, otherwise, prn. Orders: Orders PT Evaluation and Treatment Today S82.63XA - Displaced fracture of lateral malleolus of unspecified fibula, initial encounter for closed fracture XR ankle LT min 3V Today M25.572 - Pain in left ankle and joints of left foot Coding Level of Care Code Global (51878) Diagnoses Fracture of lateral malleolus S82.63XA
== END 2025-02-02 14:38 | disposition home or self-care (01) ==
LOC: HO.HOS 14:04
PROVIDERS: Visit Provider Physician Assistant
DX: S82.62XA Displaced fracture of lateral malleolus of left fibula, initial encounter for closed fracture (principal); Z48.89 Encounter for other specified surgical aftercare
CPT/HCPCS: 99213

== ENCOUNTER → 2025-02-02 14:06 | Outpatient (BNV) | payer MEDICARE, SELFPAY | PROVIDERS: Visit Provider Radiology Diagnostic Ultrasound | DX: S82.402A Unspecified fracture of shaft of left fibula, initial encounter for closed fracture (principal) | CPT/HCPCS: 73610 ==

== ENCOUNTER 2025-02-26 13:47 | Outpatient (AMB) | payer MEDICARE, SELFPAY ==
--- NOTE | 2025-02-26 13:57 | MHC.OFFVIS ---
Vital Signs 02/26/25 14:02 Height 5 ft 2 in Weight 108 lb 0.424 oz BMI 19.8 BP 118/62 Blood Pressure Location Lt brachial Position Sitting Pulse 71 Pulse Source Monitor Intake Visit Reasons: 6m follow up Allergies No Known Allergies (No Known Allergies*) Allergy (Verified 02/24/25 15:09) Medication List - Last Reconciled 02/26/25 by Bar Child MD acetaminophen 1,000 mg PO Q6H PRN amiodarone 100 mg (1/2 x 200 mg) PO DAILY 90 days atorvastatin 20 mg PO DAILY calcium carbonate (Calcium 600) 600 mg PO DAILY comp.stocking,knee,long,medium Need for 15-20 mmHg compression metoprolol succinate ER 50 mg PO DAILY 90 days omeprazole 20 mg PO DAILY PRN raloxifene 60 mg PO DAILY walker (Ultra-Light Rollator misc) As directed warfarin 2 mg See Protocol PO 6XW HPI Comments Details: Rosy returns for follow-up regarding atrial fibrillation and other concerns. Overall, no specific cardiac concerns and she does not have any chest pains or shortness of breath or palpitations extra. She has been losing weight over the last few years that has a major concern. Frailty from age. Otherwise, she seems to be getting along okay. [facility] Medical History PAF (paroxysmal atrial fibrillation) Essential hypertension Pulmonary hypertension Non-rheumatic tricuspid stenosis with insufficiency Abnormal myocardial perfusion study Chronic heart failure with preserved ejection fraction (HFpEF) Hiatal hernia Diverticulitis Gastro-esophageal reflux disease without esophagitis High cholesterol Hypertension Atrial fibrillation Surgical History S/P total abdominal hysterectomy History of cardioversion H/O mastectomy Family History Father Heart disease Mother Colon cancer Social History Household Members: None Housing: Apartment Are you a primary caretaker grounds to a significant other at home: No Do you presently have visiting nurse or other home services: No Alcohol intake: never Patient Tobacco Use Status: Never used Tobacco e-Cigarette/Vaping Use: Never Used Second Hand Smoke Exposure: No Advance Directives Date on File: 01/16/20 service: No Current occupational status: retired Cognitive needs: No Hearing needs: No Vision needs: No Review of Systems Const Denies weakness ENT Denies dizziness Card Denies chest pain, Denies chest pain with activity, Denies syncope, Denies rapid heart rate, Denies pedal edema, Denies edema, Denies leg edema, Denies lightheadedness, Denies palpitations, Denies dyspnea, Denies dyspnea on exertion and Denies orthopnea Resp Denies cough, Denies dyspnea and Denies dyspnea on exertion GI Denies hematochezia and Denies change in stool character Musc Denies abnormal gait, Denies muscle cramps, Denies muscle weakness, Denies numbness, Denies radiating pain into limb and Denies tingling Neuro Denies abnormal gait, Denies dizziness, Denies syncope, Denies numbness, Denies tingling and Denies weakness Endo Denies palpitations Physical Exam Vital Signs: Last Vital Signs Pulse 71 02/26/25 14:02 BP 118/62 02/26/25 14:02 BMI result Body Mass Index 19.8 Const General: comfortable and no acute distress Orientation/consciousness: patient oriented x3 HEENT Other: Unremarkable Head: Yes normal to inspection Neck Neck: Yes normal visual inspection Chest Chest palpation & inspection: normal inspection of the chest Resp Auscultation: clear to auscultation bilaterally Cardio Palpation: normal PMI Heart sounds: S1 normal heart sound present, S2 normal heart sound present, no gallops, no murmurs and no rubs GI Palpation (GI): Soft to palpation Back/Spine/Pelvis Other: unremarkable Skin General skin exam: no rashes or lesions noted Neuro General: patient oriented x3 Extrem General: Yes normal to inspection Psych Mental Status: mental status grossly normal Office Procedures EKG Details: EKG with sinus rhythm at 71/Min; rightward axis; nonspecific ST-T changes; [place]. [address]-Uuenxxwzzloamzsna, Complete Assessment & Plan Assessment & Plan (1) PAF (paroxysmal atrial fibrillation): Code(s): I48.0 - Paroxysmal atrial fibrillation Category: Medical Plan: She is on low-dose Amiodarone. Multaq is too expensive. Not a candidate for sotalol or Tikosyn due to renal failure. Check TSH. On warfarin. (2) Chronic heart failure with preserved ejection fraction (HFpEF): Code(s): I50.32 - Chronic diastolic (congestive) heart failure Category: Medical Plan: Grade 2 diastolic dysfunction echocardiogram with elevated filling pressures. She already has baseline renal insufficiency. We will use diuretics if necessary. (3) Abnormal myocardial perfusion study: Code(s): R94.39 - Abnormal result of other cardiovascular function study Category: Medical Plan: Prior myocardial perfusion imaging study had shown mild intensity basal inferolateral ischemia. She has absolutely no angina. At her age, with frailty, no need for any further workup. On empiric beta-blockers and statins. (4) Non-rheumatic tricuspid stenosis with insufficiency: Code(s): I36.2 - Nonrheumatic tricuspid (valve) stenosis with insufficiency Category: Medical Plan: Uevh-[id number] tricuspid regurgitation noted on echocardiogram. No clinical implications at this time. Orders: Orders TSH reflex Free T4 Today I48.0 - Paroxysmal atrial fibrillation, R94.6 - Abnormal results of thyroid function studies Coding Level of Care Code Est Pt Level 4 (71258) Complex EM visit Add On G2211 Diagnoses PAF (paroxysmal atrial fibrillation) I48.0 Chronic heart failure with preserved ejection fraction (HFpEF) I50.32 Abnormal myocardial perfusion study R94.39 Non-rheumatic tricuspid stenosis with insufficiency I36.2 CPT Codes EKG - CPT: 39904-Pckfzabewglqqyzix, Complete ([id number])
[2025-02-26 14:02] VITALS: BP 118/62; PULSE 71; BMI 19.8
--- OUTSIDE RECORDS SUMMARY | 2025-02-26 17:09 | XMS_ITS | Encounter Summary ---
Author Organization [employer] Address [address] [place] [address] Care Team Providers Care Secondary Education Professor Name Role Phone Eusebio Sprague MD Primary Care Provider Encounter Details Date Type Department Care Team (Late st Contact Info) Description 11/26/2024 Lab Requisition [facility] - Main Lab [address] [facility] [place] [address] Eusebio Sprague MD [address] [place], [place] [phone] Unspecified atrial fibrillation (CMS/HCC V24, CMS/HCC V28) [...] sec LAB COAGULATION METHOD 11/27/2024 8:[address] [facility] INR 2.0 LAB COAGULATION METHOD 11/27/2024 8:[address] [facility] Blood Venous blood specimen / Unknown Venipuncture / Unknown 11/27/2024 6:40 AM EDT 11/27/2024 8:33 AM EDT Eusebio Sprague MD LAB BLOOD ORDERABLES Final Resul t [facility] ([facility]) [facility] [address] [place] [address], documented in this encounter Visit Diagnoses Diagnosis Unspecified atrial fibrillation (CMS/HCC V24, CMS/HCC V28) documented in this encounter Care Teams Secondary Education Professor Relationship Specialty Start Date End Date Eusebio Sprague MD [address] [place] [address] [address] [place] [address] PCP - General Geriatric Medicine 11/05/24 documented as of this encounter
--- OUTSIDE RECORDS SUMMARY | 2025-02-26 17:09 | XMS_ITS | Encounter Summary ---
Author Organization [employer] Address [address] [place] [address] Care Team Providers Care Net C Developer Name Role Phone Eusebio Sprague MD Primary Care Provider [phone] Encounter Details Date Type Department Care Team (Late st Contact Info) Description 12/20/2024 Lab Requisition [facility] - Main Lab [address] [facility] [place] [address] Eusebio Sprague MD [address] [place], [place] [phone] Unspecified atrial fibrillation (CMS/HCC V24, CMS/HCC V28); [...] mmol/L LAB CHEMISTRY METHOD 12/22/2024 1:13 PM [facility] Potassium 4.8 3.5 - 5.5 mmol/L LAB CHEMISTRY METHOD 12/22/2024 1:13 PM [facility] Chloride 109 96 - 110 mmol/L LAB CHEMISTRY METHOD 12/22/2024 1:13 PM [facility] CO2 25 21 - 32 mmol/L LAB CHEMISTRY METHOD 12/22/2024 1:13 PM [facility] Anion Gap 6 3 - 11 LAB CHEMISTRY METHOD 12/22/2024 1:13 PM [facility] Glucose 72 70 - 100 mg/dL LAB CHEMISTRY METHOD 12/22/2024 1:13 PM [facility] BUN 33(H) 5 - 25 mg/dL LAB CHEMISTRY METHOD 12/22/2024 1:13 PM [facility] Creatinine 1.53(H) 0.50 - 1.10 mg/dL LAB CHEMISTRY METHOD 12/22/2024 1:13 PM [facility] eGFR 33(L) >=60 mL/min/1. 73m2 LAB CHEMISTRY METHOD 12/22/2024 1:13 PM [facility] Comment:Calculation based on the Chronic Kidney Disease Epidemiology Collaboration (CKD-EPI) equation refit without adjustment for race. BUN/Creatinine Ratio 21.6 LAB CHEMISTRY METHOD 12/22/2024 1:13 PM [facility] Calcium 8.7 8.5 - 10.5 mg/dL LAB CHEMISTRY METHOD 12/22/2024 1:13 PM [facility] Blood Venous blood specimen / Unknown Venipuncture / Unknown 12/22/2024 6:15 AM EDT 12/22/2024 10:44 AM EDT us Fahim A Celestine MD LAB BLOOD ORDERABLES Final Resul t [facility] [address] [place] [address], * (ABNORMAL) Complete blood count (12/22/2024 6:15 AM EDT) WBC 4.7(L) 4.8 - 10.8 K/mcL LAB HEMETOLOGY METHOD 12/22/2024 11:59 AM EDT [facility] RBC 3.70(L) 3.80 - 4.80 M/mcL LAB HEMETOLOGY METHOD 12/22/2024 11:59 AM EDT [facility] Hemoglobin 11.3(L) 11.5 - 16.0 g/dL LAB HEMETOLOGY METHOD 12/22/2024 11:59 AM EDT [facility] Hematocrit 36.4 35.0 - 47.0 % LAB HEMETOLOGY METHOD 12/22/2024 11:59 AM EDT [facility] MCV 99.5(H) 79.0 - 98.0 FL LAB HEMETOLOGY METHOD [facility]24 [facility] MCH 30.9 27.0 - 32.0 pcg LAB HEMETOLOGY METHOD 12/22/2024 11:59 AM EDT [facility] MCHC 31.0(L) 32.0 - 37.0 g/dL LAB HEMETOLOGY METHOD 12/22/2024 11:59 AM EDT [facility] RDW 13.9 11.0 - 15.0 % LAB HEMETOLOGY METHOD 12/22/2024 11:59 AM EDT [facility] Platelets 153 130 - 400 K/mcL LAB HEMETOLOGY METHOD 12/22/2024 11:59 AM EDT [facility] MPV 10.1 7.0 - 11.0 FL LAB HEMETOLOGY METHOD 12/22/2024 11:59 AM EDT [facility] NRBC 0.0 <1.0 % LAB HEMETOLOGY METHOD 12/22/2024 11:59 AM EDT [facility] NRBC Absolute 0.00 <0.10 K/mcL LAB HEMETOLOGY METHOD 12/22/2024 11:59 AM EDT [facility] Blood Venous blood specimen / Unknown Venipuncture / Unknown 12/22/2024 6:15 AM EDT 12/22/2024 10:44 AM EDT Eusebio Sprague MD LAB BLOOD ORDERABLES Final Resul t Performing Organization Address City/[facility]/ZIP Co de Phone Number [facility] [address] [place] [address], [place] [phone] * (ABNORMAL) Prothrombin time with INR (12/22/2024 6:15 AM EDT) Protime 27.8(H) 10.6 - 13.9 sec LAB COAGULATION METHOD 12/22/2024 11:38 AM EDT [facility] INR 2.2 LAB COAGULATION METHOD 12/22/2024 11:38 AM EDT [facility] Blood Venous blood specimen / Unknown Venipuncture / Unknown 12/22/2024 6:15 AM EDT 12/22/2024 10:44 AM EDT Eusebio Sprague MD LAB BLOOD ORDERABLES Final Resul t Performing Organization Address City/[facility]/ZIP Co de Phone Number [facility] [address] [place] [address], [place] [phone] documented in this encounter Visit Diagnoses Diagnosis Unspecified atrial fibrillation (CMS/HCC V24, CMS/HCC V28) Essential (primary) hypertension Unspecified essential hypertension documented in this encounter Care Teams Net C Developer Relationship Specialty Start Date End Date Eusebio Sprague MD [address] [place] [address] [address] [place] [address] PCP - General Geriatric Medicine 11/05/24 documented as of this encounter
--- OUTSIDE RECORDS SUMMARY | 2025-02-26 17:09 | XMS_ITS | Encounter Summary ---
Author Organization [employer] Address [address] [place] [address] Care Team Providers Care Internal Revenue Service Agent Name Role Phone Eusebio Sprague MD Primary Care Provider Encounter Details Date Type Department Care Team (Late st Contact Info) Description 12/17/2024 Lab Requisition [facility] - Main Lab [address] [facility] [place] [address] Eusebio Sprague MD [address] [place], [place] [phone] Unspecified atrial fibrillation (CMS/HCC V24, CMS/HCC V28) [...] sec LAB COAGULATION METHOD 12/18/2024 10:20 AM [facility] INR 1.8 LAB COAGULATION METHOD 12/18/2024 10:20 AM [facility] Blood Venous blood specimen / Unknown Venipuncture / Unknown 12/18/2024 6:57 AM EDT 12/18/2024 9:44 AM EDT Eusebio Sprague MD LAB BLOOD ORDERABLES Final Resul t [facility] ([email or web address] [address] [place] [address], documented in this encounter Visit Diagnoses Diagnosis Unspecified atrial fibrillation (CMS/HCC V24, CMS/HCC V28) documented in this encounter Care Teams Internal Revenue Service Agent Relationship Specialty Start Date End Date Eusebio Sprague MD [address] [place] [address] [address] [place] [address] PCP - General Geriatric Medicine 11/05/24 documented as of this encounter
--- OUTSIDE RECORDS SUMMARY | 2025-02-26 17:09 | XMS_ITS | Clinical Summary ---
Author Organization [facility] [address] [place] [address] Phone Care Team Providers Care Skip Locator Name Role Phone Ruben Dick Primary Care Provider [phone] Allergies No known active allergies Medications amiodarone [...] Mass Index - - Plan of Treatment Upcoming Encounters Date Type Department Care Team (Late st Contact Info) Description 03/31/2025 10:00 AM EST Office Visit [facility] [address] [address] Guanako Dey MD [address] [address] Health Maintenance Due Date Last Done Comments Pneumococcal Vaccine: 50+ Ye ars (2 of 2 - PCV) 03/13/2018 03/13/2017 Influenza Vaccine (#1) 2024 Hepatitis B Vaccine Aged Out No longe r eligible based on patient's age to complete this topic Insurance [facility] ([address] [address] [facility] MCR Care Teams Skip Locator Relationship Specialty Start Date End Date Ruben Dick PA [address] [facility], [address] [place], [place] [phone] PCP - General Physician Body Specialist 07/19/21
--- OUTSIDE RECORDS SUMMARY | 2025-02-26 17:09 | XMS_ITS | Encounter Summary ---
Author Organization [employer] Address [address] [place] [address] Care Team Providers Care Copier And Printer Field Technician Name Role Phone Eusebio Sprague MD Primary Care Provider [phone] Encounter Details Date Type Department Care Team (Late st Contact Info) Description 11/24/2024 Lab Requisition [facility] - Main Lab [address] [facility] [place] [address] Reena Salmon PA [address] [facility] [place] [address] Heart failure, unspecified (CMS/HCC V24, CMS/HCC V28); [...] sec LAB COAGULATION METHOD 11/24/2024 10:32 AM [facility] INR 2.0 LAB COAGULATION METHOD 11/24/2024 10:32 AM [facility] Blood Venous blood specimen / Unknown Venipuncture / Unknown 11/24/2024 6:19 AM EDT 11/24/2024 10:10 AM EDT us Reena FOSTER LAB BLOOD ORDERABLES Final Resu lt Performing Organization Address City/[facility]/ZIP Co de Phone Number [facility] [address] [place] [address], [place] [phone] * Magnesium (11/24/2024 6:19 AM EDT) Pathologist [facility] [place] Magnesium 2.4 1.9 - 2.6 mg/dL LAB CHEMISTRY METHOD 11/24/2024 11:02 AM EDT [facility] Blood Venous blood specimen / Unknown Venipuncture / Unknown 11/24/2024 6:19 AM EDT 11/24/2024 10:10 AM EDT us Reena FOSTER LAB BLOOD ORDERABLES Final Resu lt Performing Organization Address [facility]/ZIP Co de Phone Number [facility] [address] [place] [address], [place] [phone] * (ABNORMAL) Vitamin D 25 hydroxy (11/24/2024 6:19 AM EDT) [facility] Vit D, 25-Hydroxy 29.0(L) 30.0 - 80.0 ng/mL LAB CHEMISTRY METHOD 11/24/2024 11:59 AM EDT [facility] Blood Venous blood specimen / Unknown Venipuncture / Unknown 11/24/2024 6:19 AM EDT 11/24/2024 10:10 AM EDT us Reena FOSTER LAB BLOOD ORDERABLES Final Resu lt Performing Organization Address City/[facility]/ZIP Co de Phone Number [facility] [address] [place] [address], [place] [phone] * (ABNORMAL) Thyroid stimulating hormone (11/24/2024 6:19 AM EDT) [facility] TSH 4.43(H) 0.40 - 4.00 mcIU/mL LAB CHEMISTRY METHOD 11/24/2024 11:59 AM EDT [facility] Blood Venous blood specimen / Unknown Venipuncture / Unknown 11/24/2024 6:19 AM EDT 11/24/2024 10:10 AM EDT us Reena FOSTER LAB BLOOD ORDERABLES Final Resu lt Performing Organization Address [facility]/ZIP Co de Phone Number [facility] [address] [place] [address], [place] [phone] * Vitamin B12 and folate (11/24/2024 6:19 AM EDT) [facility] Vitamin B-12 470 250 - 900 pcg/mL LAB CHEMISTRY METHOD 11/24/2024 11:28 AM EDT [facility] Folate 6.3 2.8 - 17.0 ng/ml LAB CHEMISTRY METHOD 11/24/2024 11:28 AM EDT [facility] Blood Venous blood specimen / Unknown Venipuncture / Unknown 11/24/2024 6:19 AM EDT 11/24/2024 10:10 AM EDT us Reena FOSTER LAB BLOOD ORDERABLES Final Resu lt Performing Organization Address City/[facility]/ZIP Co de Phone Number [facility] [address] [place] [address], [place] [phone] * (ABNORMAL) Comprehensive metabolic panel (11/24/2024 6:19 AM EDT) [facility] Sodium 139 133 - 145 mmol/L LAB CHEMISTRY METHOD 11/24/2024 11:28 AM EDT [facility] Potassium 5.1 3.5 - 5.5 mmol/L LAB CHEMISTRY METHOD 11/24/2024 11:28 AM EDT [facility] Chloride 108 96 - 110 mmol/L LAB CHEMISTRY METHOD 11/24/2024 11:28 AM [facility] CO2 25 21 - 32 mmol/L LAB CHEMISTRY METHOD 11/24/2024 11:28 AM [facility] Anion Gap 6 3 - 11 LAB CHEMISTRY METHOD 11/24/2024 11:28 AM [facility] Glucose 66(L) 70 - 100 mg/dL LAB CHEMISTRY METHOD 11/24/2024 11:28 AM [facility] BUN 45(H) 5 - 25 mg/dL LAB CHEMISTRY METHOD 11/24/2024 11:28 AM [facility] Creatinine 1.48(H) 0.50 - 1.10 mg/dL LAB CHEMISTRY METHOD 11/24/2024 11:28 AM [facility] eGFR 34(L) >=60 mL/min/1. 73m2 LAB CHEMISTRY METHOD 11/24/2024 11:28 AM [facility] Comment:Calculation based on the Chronic Kidney Disease Epidemiology Collaboration (CKD-EPI) equation refit without adjustment for race. BUN/Creatinine Ratio 30.4 LAB CHEMISTRY METHOD 11/24/2024 11:28 AM [facility] Calcium 8.1(L) 8.5 - 10.5 mg/dL LAB CHEMISTRY METHOD 11/24/2024 11:28 AM [facility] AST (SGOT) 51(H) 10 - 42 unit/L LAB CHEMISTRY METHOD 11/24/2024 11:28 AM [facility] ALT (SGPT) 58 10 - 60 unit/L LAB CHEMISTRY METHOD 11/24/2024 11:28 AM [facility] Alkaline Phosphatase 119 42 - 121 unit/L LAB CHEMISTRY METHOD 11/24/2024 11:28 AM [facility] Total Protein 4.8(L) 6.0 - 8.0 g/dL LAB CHEMISTRY METHOD 11/24/2024 11:28 AM EDT [facility] Albumin 2.3(L) 3.2 - 5.0 g/dL LAB CHEMISTRY METHOD 11/24/2024 11:28 AM EDT [facility] Total Bilirubin 0.3 0.0 - 1.4 mg/dL LAB CHEMISTRY METHOD 11/24/2024 11:28 AM T [facility] Blood Venous blood specimen / Unknown Venipuncture / Unknown 11/24/2024 6:19 AM EDT 11/24/2024 10:10 AM EDT us Reena FOSTER LAB BLOOD ORDERABLES Final Resu lt [facility] [address] [place] [address], [place] [phone] * (ABNORMAL) Complete blood count (11/24/2024 6:19 AM EDT) WBC 6.4 4.8 - 10.8 K/mcL LAB HEMETOLOGY METHOD 11/24/2024 10:32 AM [facility] RBC 3.30(L) 3.80 - 4.80 M/mcL LAB HEMETOLOGY METHOD 11/24/2024 10:32 AM [facility] Hemoglobin 10.6(L) 11.5 - 16.0 g/dL LAB HEMETOLOGY METHOD 11/24/2024 10:32 AM T [facility] Hematocrit 33.6(L) 35.0 - 47.0 % LAB HEMETOLOGY METHOD 11/24/2024 10:32 AM [facility] MCV 100.9(H) 79.0 - 98.0 FL LAB HEMETOLOGY METHOD 11/24/2024 10:32 AM [facility] MCH 31.8 27.0 - 32.0 pcg LAB HEMETOLOGY METHOD 11/24/2024 10:32 AM EDT [facility] MCHC 31.5(L) 32.0 - 37.0 g/dL LAB HEMETOLOGY METHOD 11/24/2024 10:32 AM EDT [facility] RDW 13.9 11.0 - 15.0 % LAB HEMETOLOGY METHOD 11/24/2024 10:32 AM EDT [facility] Platelets 223 130 - 400 K/mcL LAB HEMETOLOGY METHOD 11/24/2024 10:32 AM EDT [facility] MPV 10.0 7.0 - 11.0 FL LAB HEMETOLOGY METHOD 11/24/2024 10:32 AM EDT [facility] NRBC 0.0 <1.0 % LAB HEMETOLOGY METHOD 11/24/2024 10:32 AM EDT [facility] NRBC Absolute 0.00 <0.10 K/mcL LAB HEMETOLOGY METHOD 11/24/2024 10:32 AM EDT [facility] Blood Venous blood specimen / Unknown Venipuncture / Unknown 11/24/2024 6:19 AM EDT 11/24/2024 10:10 AM EDT us Reena FOSTER LAB BLOOD ORDERABLES Final Resu lt [facility] [address] [place] [address], documented in this encounter Visit Diagnoses Diagnosis Heart failure, unspecified (CMS/HCC V24, CMS/HCC V28) Heart failure, unspecified Vitamin D deficiency, unspecified Hypothyroidism, unspecified Unspecified atrial fibrillation (CMS/HCC V24, CMS/HCC V28) documented in this encounter Care Teams Copier And Printer Field Technician Relationship Specialty Start Date End Date Eusebio Sprague MD [address] [place], [place] [id number] [place] [address] PCP - General Geriatric Medicine 11/05/24 documented as of this encounter
--- OUTSIDE RECORDS SUMMARY | 2025-02-26 17:09 | XMS_ITS | Encounter Summary ---
Author Organization [employer] Address [address] [place] [address] Care Team Providers Care Chief Of Surgery Name Role Phone Eusebio Sprague MD Primary Care Provider [phone] Encounter Details Date Type Department Care Team (Late st Contact Info) Description 12/05/2024 Lab Requisition [facility] - Main Lab [address] [facility] [place] [address] Eusebio Sprague MD [address] [place], [place] [id number] Unspecified atrial fibrillation (CMS/HCC V24, CMS/HCC V28); [...] mmol/L LAB CHEMISTRY METHOD 12/08/2024 1:54 PM [facility] Potassium 5.1 3.5 - 5.5 mmol/L LAB CHEMISTRY METHOD 12/08/2024 1:54 PM [facility] Chloride 111(H) 96 - 110 mmol/L LAB CHEMISTRY METHOD 12/08/2024 1:54 PM [facility] CO2 23 21 - 32 mmol/L LAB CHEMISTRY METHOD 12/08/2024 1:54 PM [facility] Anion Gap 7 3 - 11 LAB CHEMISTRY METHOD 12/08/2024 1:54 PM [facility] Glucose 68(L) 70 - 100 mg/dL LAB CHEMISTRY METHOD 12/08/2024 1:54 PM [facility] BUN 34(H) 5 - 25 mg/dL LAB CHEMISTRY METHOD 12/08/2024 1:54 PM [facility] Creatinine 1.55(H) 0.50 - 1.10 mg/dL LAB CHEMISTRY METHOD 12/08/2024 1:54 PM [facility] eGFR 32(L) >=60 mL/min/1. 73m2 LAB CHEMISTRY METHOD 12/08/2024 1:54 PM [facility] Comment:Calculation based on the Chronic Kidney Disease Epidemiology Collaboration (CKD-EPI) equation refit without adjustment for race. BUN/Creatinine Ratio 21.9 LAB CHEMISTRY METHOD 12/08/2024 1:54 PM [facility] Calcium 8.8 8.5 - 10.5 mg/dL LAB CHEMISTRY METHOD 12/08/2024 1:54 PM [facility] Blood Venous blood specimen / Unknown Venipuncture / Unknown 12/08/2024 6:23 AM EDT 12/08/2024 10:07 AM EDT us Eusebio Sprague MD LAB BLOOD ORDERABLES Final Resul t [facility] [address] [place] [address], * (ABNORMAL) Complete blood count (12/08/2024 6:23 AM EDT) WBC 5.6 4.8 - 10.8 K/mcL LAB HEMETOLOGY METHOD 12/08/2024 11:03 AM EDT [facility] RBC 3.80 3.80 - 4.80 M/mcL LAB HEMETOLOGY [facility] Hemoglobin 11.8 11.5 - 16.0 g/dL LAB HEMETOLOGY METHOD 12/08/2024 11:03 AM [facility] Hematocrit 37.4 35.0 - 47.0 % LAB HEMETOLOGY METHOD 12/08/2024 11:03 AM [facility] MCV 99.2(H) 79.0 - 98.0 FL LAB HEMETOLOGY METHOD 12/08/2024 11:03 AM [facility] MCH 31.3 27.0 - 32.0 pcg LAB HEMETOLOGY METHOD 12/08/2024 11:03 AM [facility] MCHC 31.6(L) 32.0 - 37.0 g/dL LAB HEMETOLOGY METHOD 12/08/2024 11:03 AM [facility] RDW 14.4 11.0 - 15.0 % LAB HEMETOLOGY METHOD 12/08/2024 11:03 AM [facility] Platelets 176 130 - 400 K/mcL LAB HEMETOLOGY METHOD 12/08/2024 11:03 AM [facility] MPV 10.0 7.0 - 11.0 FL LAB HEMETOLOGY METHOD 12/08/2024 11:03 AM EDT [facility] NRBC 0.0 <1.0 % LAB HEMETOLOGY METHOD 12/08/2024 11:03 AM EDT [facility] NRBC Absolute 0.00 <0.10 K/mcL LAB HEMETOLOGY METHOD 12/08/2024 11:03 AM EDT [facility] Blood Venous blood specimen / Unknown Venipuncture / Unknown 12/08/2024 6:23 AM EDT 12/08/2024 10:07 AM EDT Eusebio Sprague MD LAB BLOOD ORDERABLES Final Resul t Performing Organization Address [facility] Co de Phone Number [facility] [address] [place] [address], [place] [phone] * (ABNORMAL) Prothrombin time with INR (12/08/2024 6:23 AM EDT) Protime 35.3(H) 10.6 - 13.9 sec LAB COAGULATION METHOD 12/08/2024 10:47 AM EDT [facility] INR 2.9 LAB COAGULATION METHOD 12/08/2024 10:47 AM EDT [facility] Blood Venous blood specimen / Unknown Venipuncture / Unknown 12/08/2024 6:23 AM EDT 12/08/2024 10:07 AM EDT Eusebio Sprague MD LAB BLOOD ORDERABLES Final Resul t Performing Organization Address City/[facility]/ZIP Co de Phone Number [facility] [address] [place] [address], [place] [phone] documented in this encounter Visit Diagnoses Diagnosis Unspecified atrial fibrillation (CMS/HCC V24, CMS/HCC V28) Essential (primary) hypertension Unspecified essential hypertension documented in this encounter Care Teams Chief Of Surgery Relationship Specialty Start Date End Date Eusebio Sprague MD [address] [place] [address] [address] [place] [address] PCP - General Geriatric Medicine 11/05/24 documented as of this encounter
--- OUTSIDE RECORDS SUMMARY | 2025-02-26 17:09 | XMS_ITS | Encounter Summary ---
Author Organization [employer] Address [address] [place] [address] Care Team Providers Care Senior Oracle Database Developer Name Role Phone Eusebio Sprague MD Primary Care Provider [phone] Encounter Details Date Type Department Care Team (Late st Contact Info) Description 11/15/2024 Lab Requisition [facility] - Main Lab [address] [facility] [place] [address] Eusebio Sprague MD [address] [place], [place] [phone] Unspecified atrial fibrillation (CMS/HCC V24, CMS/HCC V28); [...] unspecified documented in this encounter Care Teams Senior Oracle Database Developer Relationship Specialty Start Date End Date Eusebio Sprague MD [address] [place], [place] [phone] PCP - General Geriatric Medicine 11/05/24 documented as of this encounter
--- OUTSIDE RECORDS SUMMARY | 2025-02-26 17:09 | XMS_ITS | Clinical Summary ---
Author Organization [address] Address [address] [place] [address] Phone Care Team Providers Care Laborer [employer] Name Role Phone Eusebio Sprague MD Primary Care Provider [phone] Encounters Date Type Department Care Team Description 12/24/2024 Lab Requisition [facility] [address] [place] [phone] Eusebio Sprague MD Unspecified atrial fibrillation (CMS/HCC V24, CMS/HCC V28) 12/20/2024 Lab Requisition [facility] [address] [place] [phone] Eusebio Sprague MD Unspecified atrial fibrillation (CMS/HCC V24, CMS/HCC V28); Essential (primary) hypertension 12/17/2024 Lab Requisition [facility] [address] [place] [phone] Eusebio Sprague MD Unspecified atrial fibrillation (CMS/HCC V24, CMS/HCC V28) 12/12/2024 Lab Requisition [facility] [address] [place] [phone] Eusebio Sprague MD Unspecified atrial fibrillation (CMS/HCC V24, CMS/HCC V28); Essential (primary) hypertension 12/11/2024 Lab Requisition [facility] [address] [place] [phone] Eusebio Sprague MD Frequency of micturition 12/10/2024 Lab Requisition [facility] [address] [place] [phone] Eusebio Sprague MD Unspecified atrial fibrillation (CMS/HCC V24, CMS/HCC V28) 12/05/2024 Lab Requisition [facility] [address] [place] [phone] Eusebio Sprague MD Unspecified atrial fibrillation (CMS/HCC V24, CMS/HCC V28); Essential (primary) hypertension 12/03/2024 Lab Requisition [facility] [address] [place] [phone] Eusebio Sprague MD Unspecified atrial fibrillation (CMS/HCC V24, CMS/HCC V28) 11/29/2024 Lab Requisition [facility] [address] [place] [phone] Eusebio Sprague MD Unspecified atrial fibrillation (CMS/HCC V24, CMS/HCC V28); Essential (primary) hypertension 11/26/2024 Lab Requisition [facility] [address] [place] [phone] Eusebio Sprague MD Unspecified atrial fibrillation (CMS/HCC V24, CMS/HCC V28) from Last 3 Months Social History Tobacco [...] Unspecified atrial fibrillation (CMS/HCC V24, CMS/HCC V28) from Last 3 Months Results * (ABNORMAL) Prothrombin time with INR (12/22/2024 6:15 AM EDT) Only the most recent of8 resultswithin the time period is included. Protime 27.8(H) 10.6 - 13.9 sec LAB COAGULATION METHOD 12/22/2024 11:38 AM EDT [facility] INR 2.2 LAB COAGULATION METHOD 12/22/2024 11:38 AM EDT [facility] Blood Venous blood specimen / Unknown Venipuncture / Unknown 12/22/2024 6:15 AM EDT 12/22/2024 10:44 AM EDT us Eusebio Sprague MD LAB BLOOD ORDERABLES Final Resul t [facility] [address] [place] [address], * (ABNORMAL) Complete blood count (12/22/2024 6:15 AM EDT) Only the most recent of4 resultswithin the time period is included. WBC 4.7(L) 4.8 - 10.8 K/mcL LAB HEMETOLOGY METHOD 12/22/2024 11:59 AM [facility] RBC 3.70(L) 3.80 - 4.80 M/mcL LAB HEMETOLOGY METHOD 12/22/2024 11:59 AM [facility] Hemoglobin 11.3(L) 11.5 - 16.0 g/dL LAB HEMETOLOGY METHOD 12/22/2024 11:59 AM [facility] Hematocrit 36.4 35.0 - 47.0 % LAB HEMETOLOGY METHOD 12/22/2024 11:59 AM [facility] MCV 99.5(H) 79.0 - 98.0 FL LAB HEMETOLOGY METHOD 12/22/2024 11:59 AM [facility] MCH 30.9 27.0 - 32.0 pcg LAB HEMETOLOGY METHOD 12/22/2024 11:59 AM [facility] MCHC 31.0(L) 32.0 - 37.0 g/dL LAB HEMETOLOGY METHOD 12/22/2024 11:59 AM [facility] RDW 13.9 11.0 - 15.0 % LAB HEMETOLOGY METHOD 12/22/2024 11:59 AM [facility] Platelets 153 130 - 400 K/mcL LAB HEMETOLOGY METHOD 12/22/2024 11:59 AM [facility] MPV 10.1 7.0 - 11.0 FL LAB HEMETOLOGY METHOD 12/22/2024 11:59 AM [facility] NRBC 0.0 <1.0 % LAB HEMETOLOGY METHOD 12/22/2024 11:59 AM [facility] NRBC Absolute 0.00 <0.10 K/mcL LAB HEMETOLOGY METHOD 12/22/2024 11:59 AM EDT [facility] Blood Venous blood specimen / Unknown Venipuncture / Unknown 12/22/2024 6:15 AM EDT 12/22/2024 10:44 AM EDT us Eusebio Sprague MD LAB BLOOD ORDERABLES Final Resul t [facility] [address] [place] [address], [place] [phone] * (ABNORMAL) Basic metabolic panel (12/22/2024 6:15 AM EDT) Only the most recent of4 resultswithin the time period is included. Sodium 140 133 - 145 mmol/L LAB CHEMISTRY METHOD 12/22/2024 1:13 PM [facility] Potassium 4.8 3.5 - 5.5 mmol/L LAB CHEMISTRY METHOD 12/22/2024 1:13 PM [facility] Chloride 109 96 - 110 mmol/L LAB CHEMISTRY METHOD 12/22/2024 1:13 PM [facility] CO2 25 21 - 32 mmol/L LAB CHEMISTRY METHOD 12/22/2024 1:13 PM [facility] Anion Gap 6 3 - 11 LAB CHEMISTRY METHOD 12/22/2024 1:13 PM [facility] Glucose 72 70 - 100 mg/dL LAB CHEMISTRY METHOD 12/22/2024 1:13 PM [facility] BUN 33(H) 5 - 25 mg/dL LAB CHEMISTRY METHOD 12/22/2024 1:13 PM [facility] Creatinine 1.53(H) 0.50 - 1.10 mg/dL LAB CHEMISTRY METHOD 12/22/2024 1:13 PM [facility] eGFR 33(L) >=60 mL/min/1. 73m2 LAB CHEMISTRY METHOD 12/22/2024 1:13 PM EDT [facility] Comment:Calculation based on the Chronic Kidney Disease Epidemiology Collaboration (CKD-EPI) equation refit without adjustment for race. BUN/Creatinine Ratio 21.6 LAB CHEMISTRY METHOD 12/22/2024 1:13 PM EDT [facility] Calcium 8.7 8.5 - 10.5 mg/dL LAB CHEMISTRY METHOD 12/22/2024 1:13 PM EDT [facility] Blood Venous blood specimen / Unknown Venipuncture / Unknown 12/22/2024 6:15 AM EDT 12/22/2024 10:44 AM EDT us Eusebio Sprague MD LAB BLOOD ORDERABLES Final Resul t [facility] [address] [place] [address], [place] [phone] * (ABNORMAL) Urinalysis with reflex microscopic (12/10/2024 4:30 AM EDT) Specific [place] Urine 1.014 1.003 - 1.030 LAB URINALYSIS - AUTOMATED METHOD 12/11/2024 10:24 AM T [facility] pH, Urine 5.5 5.0 - 8.0 pH LAB URINALYSIS - AUTOMATED METHOD 12/11/2024 10:24 AM T [facility] Leukocytes, Urine Large(A) Negative LAB URINALYSIS - AUTOMATED METHOD 12/11/2024 10:24 AM T [facility] Nitrite, Urine Negative Negative LAB URINALYSIS - AUTOMATED METHOD 12/11/2024 10:24 AM T [facility] Protein, Urine Trace <=Trace mg/dL LAB URINALYSIS - AUTOMATED METHOD 12/11/2024 10:24 AM [facility] Glucose, Urine Negative Negative mg/dL LAB URINALYSIS - AUTOMATED METHOD 12/11/2024 10:24 AM [facility] Ketones, Urine Negative Negative mg/dL LAB URINALYSIS - AUTOMATED METHOD 12/11/2024 10:24 AM [facility] Urobilinogen, Urine 0.2 0.2 - 1.0 mg/dL LAB URINALYSIS - AUTOMATED METHOD 12/11/2024 10:24 AM [facility] Bilirubin, Urine Negative Negative LAB URINALYSIS - AUTOMATED METHOD 12/11/2024 10:24 AM [facility] Blood, Urine Small(A) Negative LAB URINALYSIS - AUTOMATED METHOD 12/11/2024 10:24 AM [facility] RBC, Urine 7.1(H) 0 - 4 /HPF LAB URINALYSIS - AUTOMATED METHOD 12/11/2024 10:24 AM [facility] WBC, Urine 990.7(H) 0 - 4 /HPF LAB URINALYSIS - AUTOMATED METHOD 12/11/2024 10:24 AM [facility] Squamous Epithelial, Urine 41 0 - 60 /LPF LAB URINALYSIS - AUTOMATED METHOD 12/11/2024 10:24 AM [facility] Bacteria, Urine Many(A) Negative /HPF LAB URINALYSIS - AUTOMATED METHOD 12/11/2024 10:24 AM [facility] Hyaline Casts, Urine 2.4 0 - 3 /LPF LAB URINALYSIS - AUTOMATED METHOD 12/11/2024 10:24 AM [facility] Urine Urine specimen obtained by clean catch procedure / Unknown 12/10/2024 4:30 AM EDT 12/11/2024 9:17 AM EDT us Eusebio Sprague MD LAB URINE ORDERABLES Final Resul t [facility] [address] [place] [address], [place] [phone] * (ABNORMAL) Culture urine (12/10/2024 4:30 AM EDT) Culture, Urine >=100,000 CFU/mL Enterococcus faecium(A) RAMA 12/14/2024 8:27 AM EDT [facility] Comment: Edited result: Previously reported as Gram Positive Cocci on 12/12/2024 at 1105 EDT. Culture, Urine 10,000-49,000 CFU/mL Enterococcus faecalis(A) RAMA 12/14/2024 8:27 AM EDT [facility] Comment: The organism value for this result has been updated. These results have been appended to the previously preliminary verified report. Urine Urine specimen obtained by clean catch procedure / Unknown 12/10/2024 4:30 AM EDT 12/11/2024 9:17 AM EDT Narrative [facility] - 12/14/2024 8:27 AM [...] MICROBIOLOGY - GENERAL ORDER GONZALEZ Final Result [facility] [address] [place] [address], from Last 3 Months Insurance [employer] [address] [place] [address] Care Teams Laborer [employer] Relationship Specialty Start Date End Date Eusebio Sprague MD [address] [place] [address] [address] [place] [address] PCP - General Geriatric Medicine 11/05/24
--- OUTSIDE RECORDS SUMMARY | 2025-02-26 17:09 | XMS_ITS | Encounter Summary ---
Author Organization [employer] Address [address] [place] [address] Care Team Providers Care Count Room Clerk Name Role Phone Eusebio Sprague MD Primary Care Provider [phone] Encounter Details Date Type Department Care Team (Late st Contact Info) Description 12/24/2024 Lab Requisition [facility] - Main Lab [address] [facility] [place] [address] Eusebio Sprague MD [address] [place], [place] [phone] Unspecified atrial fibrillation (CMS/HCC V24, CMS/HCC V28) [...] V28) documented in this encounter Care Teams Count Room Clerk Relationship Specialty Start Date End Date Eusebio Sprague MD [address] [place], [place] [phone] PCP - General Geriatric Medicine 11/05/24 documented as of this encounter
--- OUTSIDE RECORDS SUMMARY | 2025-02-26 17:09 | XMS_ITS | Encounter Summary ---
Author Organization [employer] Address [address] [place] [address] Care Team Providers Care Sales Manager [place] Name Role Phone Eusebio Sprague MD Primary Care Provider [phone] Encounter Details Date Type Department Care Team (Late st Contact Info) Description 12/11/2024 Lab Requisition [facility] - Main Lab 299 Replaced By [facility] [place] [address] Eusebio Sprague MD [address] [place], [place] [id number] Frequency of micturition Social History Tobacco Use [...] reflex microscopic (12/10/2024 4:30 AM EDT) Specific Clark Urine 1.014 1.003 - 1.030 LAB URINALYSIS - AUTOMATED METHOD 12/11/2024 10:24 AM EDT [facility] pH, Urine 5.5 5.0 - 8.0 pH LAB URINALYSIS - AUTOMATED METHOD 12/11/2024 10:24 AM [facility] Leukocytes, Urine Large(A) Negative LAB URINALYSIS - AUTOMATED METHOD 12/11/2024 10:24 AM [facility] Nitrite, Urine Negative Negative LAB [...] [facility] Hyaline Casts, Urine 2.4 0 - 3 /LPF LAB URINALYSIS - AUTOMATED METHOD 12/11/2024 10:24 AM EDT [facility] Urine Urine specimen obtained by clean catch procedure / Unknown 12/10/2024 4:30 AM EDT 12/11/2024 9:17 AM EDT us Eusebio Sprague MD LAB URINE ORDERABLES Final Resul t [facility] LAB [address] [place] [address], * (ABNORMAL) Culture urine (12/10/2024 4:30 AM [...] GENERAL ORDER GONZALEZ Final Result [facility] ([facility]) [facility] [address] [place] [address], documented in this encounter Visit Diagnoses Diagnosis Frequency of micturition Urinary frequency documented in this encounter Care Teams Sales Manager [place] Relationship Specialty Start Date End Date Eusebio Sprague MD [address] [place] [address] [address] [place] [address] PCP - General Geriatric Medicine 11/05/24 documented as of this encounter
--- OUTSIDE RECORDS SUMMARY | 2025-02-26 17:10 | XMS_ITS | Encounter Summary ---
Author Organization [employer] Address [address] [place] [address] Care Team Providers Care Biodiesel Product Development Manager Name Role Phone Eusebio Sprague MD Primary Care Provider [phone] Encounter Details Date Type Department Care Team (Late st Contact Info) Description 11/05/2024 Lab Requisition [facility] - Main Lab [address] [facility] [address] [place] [address] Eusebio Sprague MD [address] [place], [place] [id number] Unspecified atrial fibrillation (CMS/HCC V24, CMS/HCC V28); [...] Results * Magnesium (11/05/2024 6:51 AM EDT) [facility] Magnesium 2.5 1.9 - 2.6 mg/dL LAB CHEMISTRY METHOD 11/05/2024 12:06 PM EDT [facility] LAB Blood Venous blood specimen / Unknown Venipuncture / Unknown 11/05/2024 6:51 AM EDT 11/05/2024 10:39 AM EDT us Eusebio Sprague MD LAB BLOOD ORDERABLES Final Resul t Performing Organization Address City/[facility]/ZIP Co de Phone Number [facility] LAB [address] [place] [address], [place] [phone] * Thyroid stimulating hormone (11/05/2024 6:51 AM EDT) [facility] TSH 2.71 0.40 - 4.00 mcIU/mL LAB CHEMISTRY METHOD 11/05/2024 12:58 PM EDT [facility] LAB Blood Venous blood specimen / Unknown Venipuncture / Unknown 11/05/2024 6:51 AM EDT 11/05/2024 10:39 AM EDT us Eusebio Sprague MD LAB BLOOD ORDERABLES Final Resul t [facility] LAB [address] [place] [address], [place] [phone] * Vitamin D 25 hydroxy (11/05/2024 6:51 AM EDT) [facility] Vit D, 25-Hydroxy 38.0 30.0 - 80.0 ng/mL LAB CHEMISTRY METHOD 11/05/2024 12:58 PM EDT [facility] LAB Blood Venous blood specimen / Unknown Venipuncture / Unknown 11/05/2024 6:51 AM EDT 11/05/2024 10:39 AM EDT us Eusebio Sprague MD LAB BLOOD ORDERABLES Final Resul t Performing Organization Address [facility] Co de Phone Number [facility] LAB [address] [place] [address], [place] [phone] * Vitamin B12 (11/05/2024 6:51 AM EDT) [facility] Vitamin B-12 387 250 - 900 pcg/mL LAB CHEMISTRY METHOD 11/05/2024 12:33 PM EDT [facility] LAB Blood Venous blood specimen / Unknown Venipuncture / Unknown 11/05/2024 6:51 AM EDT 11/05/2024 10:39 AM EDT us Eusebio Sprague MD LAB BLOOD ORDERABLES Final Resul t Performing Organization Address [facility] de Phone Number [facility] LAB [address] [place] [address], [place] [phone] * Folate (11/05/2024 6:51 AM EDT) [facility] Folate 8.7 2.8 - 17.0 ng/ml LAB CHEMISTRY METHOD 11/05/2024 12:33 PM EDT [facility] Blood Venous blood specimen / Unknown Venipuncture / Unknown 11/05/2024 6:51 AM EDT 11/05/2024 10:39 AM EDT us Eusebio Sprague MD LAB BLOOD ORDERABLES Final Resul t Performing Organization Address [facility] Co de Phone Number [facility] [address] [place] [address], [place] [phone] * (ABNORMAL) Prothrombin time with INR (11/05/2024 6:51 AM EDT) [facility] Protime 17.5(H) 10.6 - 13.9 sec LAB COAGULATION METHOD 11/05/2024 11:22 AM [facility] LAB INR 1.4 LAB COAGULATION METHOD 11/05/2024 11:22 AM [facility] LAB Blood Venous blood specimen / Unknown Venipuncture / Unknown 11/05/2024 6:51 AM EDT 11/05/2024 10:39 AM EDT us Eusebio Sprague MD LAB BLOOD ORDERABLES Final Resul t [facility] [address] [place] [address], [place] [phone] * (ABNORMAL) Comprehensive metabolic panel (11/05/2024 6:51 AM EDT) [facility] Sodium 140 133 - 145 mmol/L LAB [facility] [address] [place] [address], * (ABNORMAL) Complete blood count (11/05/2024 6:51 AM EDT) [facility] WBC 5.3 4.8 - 10.8 K/mcL LAB [...] LAB HEMETOLOGY METHOD 11/05/2024 11:32 AM EDT [facility] LAB Blood Venous blood specimen / Unknown Venipuncture / Unknown 11/05/2024 6:51 AM EDT 11/05/2024 10:39 AM EDT us Eusebio Sprague MD LAB BLOOD ORDERABLES Final Resul t [facility] LAB [address] [place] [address], documented in this encounter Visit Diagnoses Diagnosis Unspecified atrial fibrillation (CMS/HCC V24, CMS/HCC V28) Nontoxic single thyroid nodule Nontoxic uninodular goiter Essential (primary) hypertension Unspecified essential hypertension Heart failure, unspecified (CMS/HCC V24, CMS/HCC V28) Heart failure, unspecified Vitamin D deficiency, unspecified Diverticulum of bladder documented in this encounter Care Teams Biodiesel Product Development Manager Relationship Specialty Start Date End Date Eusebio Sprague MD [address] [place] [address] [address] [place] [address] PCP - General Geriatric Medicine 11/05/24 documented as of this encounter
--- OUTSIDE RECORDS SUMMARY | 2025-02-26 17:10 | XMS_ITS | Encounter Summary ---
Author Organization [employer] Address [address] [place] [address] Care Team Providers Care Drum Sander Name Role Phone Eusebio Sprague MD Primary Care Provider [phone] Encounter Details Date Type Department Care Team (Late st Contact Info) Description 11/05/2024 Lab Requisition [facility] - Main Lab 299 [facility] [place] [address] Eusebio Sprague MD [address] [place], [place] [phone] Unspecified atrial fibrillation (CMS/HCC V24, CMS/HCC V28) [...] sec LAB COAGULATION METHOD 11/06/2024 9:24 AM [facility] LAB INR 1.6 LAB COAGULATION METHOD 11/06/2024 9:24 AM [facility] LAB Blood Venous blood specimen / Unknown Venipuncture / Unknown 11/06/2024 7:06 AM EDT 11/06/2024 9:01 AM EDT Eusebio Sprague MD LAB BLOOD ORDERABLES Final Resul t [facility] ([facility] [address] [place] [address], documented in this encounter Visit Diagnoses Diagnosis Unspecified atrial fibrillation (CMS/HCC V24, CMS/HCC V28) documented in this encounter Care Teams Drum Sander Relationship Specialty Start Date End Date Eusebio Sprague MD [address] [place] [address] [address] [place] [address] PCP - General Geriatric Medicine 11/05/24 documented as of this encounter
--- OUTSIDE RECORDS SUMMARY | 2025-02-26 17:10 | XMS_ITS | Encounter Summary ---
Author Organization [employer] Address [address] [place] [address] Care Team Providers Care Fuels Sales Representative Name Role Phone Eusebio Sprague MD Primary Care Provider [phone] Encounter Details Date Type Department Care Team (Late st Contact Info) Description 11/08/[address] [facility] - Main Lab [address] [facility] [place] [address] Eusebio Sprague MD [address] [place], [place] [phone] Unspecified atrial fibrillation (CMS/HCC V24, CMS/HCC V28); [...] (CMS/HCC V24, CMS/HCC V28) Heart failure, unspecified ([facility] V24, [facility] V28) documented in this encounter Results * (ABNORMAL) Basic metabolic panel (11/10/2024 6:08 AM EDT) Sodium 139 133 - 145 mmol/L LAB CHEMISTRY METHOD 11/10/2024 1:25 PM [facility] Potassium 4.6 3.5 - 5.5 mmol/L LAB CHEMISTRY METHOD 11/10/2024 1:25 PM [facility] Chloride 111(H) 96 - 110 mmol/L LAB CHEMISTRY METHOD 11/10/2024 1:25 PM [facility] CO2 22 21 - 32 mmol/L LAB CHEMISTRY METHOD 11/10/2024 1:25 PM [facility] Anion Gap 6 3 - 11 LAB CHEMISTRY METHOD 11/10/2024 1:25 PM [facility] Glucose 64(L) 70 - 100 mg/dL LAB CHEMISTRY METHOD 11/10/2024 1:25 PM [facility] BUN 44(H) 5 - 25 mg/dL LAB CHEMISTRY METHOD 11/10/2024 1:25 PM [facility] Creatinine 1.53(H) 0.50 - 1.10 mg/dL LAB CHEMISTRY METHOD 11/10/2024 1:25 PM [facility] eGFR 33(L) >=60 mL/min/1. 73m2 LAB CHEMISTRY METHOD 11/10/2024 1:25 PM [facility] LAB Comment:Calculation based on the Chronic Kidney Disease Epidemiology Collaboration (CKD-EPI) equation refit without adjustment for race. BUN/Creatinine Ratio 28.8 LAB CHEMISTRY METHOD 11/10/2024 1:25 PM [facility] Calcium 8.2(L) 8.5 - 10.5 mg/dL LAB CHEMISTRY METHOD 11/10/2024 1:25 PM [facility] Blood Venous blood specimen / Unknown Venipuncture / Unknown 11/10/2024 6:08 AM EDT 11/10/2024 11:46 AM EDT Eusebio Sprague MD LAB BLOOD ORDERABLES Final Resul t [facility] [address] [place] [address], * (ABNORMAL) Complete blood count (11/10/2024 6:08 AM EDT) WBC 6.8 4.8 - 10.8 K/mcL LAB HEMETOLOGY METHOD 11/10/2024 1:46 PM EDT [facility] RBC 3.40(L) 3.80 - 4.80 M/mcL LAB HEMETOLOGY METHOD 11/10/2024 1:46 PM EDT [facility] Hemoglobin 11.0(L) 11.5 - 16.0 g/dL LAB HEMETOLOGY METHOD 11/10/2024 1:46 PM EDT [facility] Hematocrit 34.4(L) 35.0 - 47.0 % LAB HEMETOLOGY METHOD 11/10/2024 1:46 PM EDT [facility] MCV 100.6(H) 79.0 - 98.0 FL LAB HEMETOLOGY METHOD 11/10/2024 1:46 PM EDT [facility] MCH 32.2(H) 27.0 - 32.0 pcg LAB HEMETOLOGY METHOD 11/10/2024 1:46 PM EDT [facility] MCHC 32.0 32.0 - 37.0 g/dL LAB HEMETOLOGY METHOD 11/10/2024 1:46 PM EDT [facility] RDW 14.5 11.0 - 15.0 % LAB HEMETOLOGY METHOD 11/10/2024 1:46 PM EDT [facility] Platelets 160 130 - 400 K/mcL LAB HEMETOLOGY METHOD 11/10/2024 1:46 PM EDT [facility] MPV 10.1 7.0 - 11.0 FL LAB HEMETOLOGY METHOD 11/10/2024 1:46 PM EDT [facility] NRBC 0.0 <1.0 % LAB HEMETOLOGY METHOD 11/10/2024 1:46 PM EDT [facility] NRBC Absolute 0.00 <0.10 K/mcL LAB HEMETOLOGY METHOD 11/10/2024 1:46 PM EDT [facility] Blood Venous blood specimen / Unknown Venipuncture / Unknown 11/10/2024 6:08 AM EDT 11/10/2024 11:46 AM EDT us Eusebio Sprague MD LAB BLOOD ORDERABLES Final Resul t [facility] [address] [place] [address], [place] [phone] * (ABNORMAL) Prothrombin time with INR (11/10/2024 6:08 AM EDT) Protime 33.8(H) 10.6 - 13.9 sec LAB COAGULATION METHOD 11/10/2024 12:48 PM EDT [facility] INR 2.7 LAB COAGULATION METHOD 11/10/2024 12:48 PM EDT [facility] Blood Venous blood specimen / Unknown Venipuncture / Unknown 11/10/2024 6:08 AM EDT 11/10/2024 11:46 AM EDT us Eusebio Sprague MD LAB BLOOD ORDERABLES Final Resul t [facility] [address] [place], [place] [address] [phone] documented in this encounter Visit Diagnoses Diagnosis Unspecified atrial fibrillation (CMS/[facility] V24, CMS/HCC V28) Heart failure, unspecified (CMS/[facility] V24, CMS/[facility] V28) Heart failure, unspecified documented in this encounter Care Teams Fuels Sales Representative Relationship Specialty Start Date End Date Eusebio Sprague MD [address] [place] [address] [address] [place] [address] PCP - General Geriatric Medicine 11/05/24 documented as of this encounter
--- OUTSIDE RECORDS SUMMARY | 2025-02-26 17:10 | XMS_ITS | Encounter Summary ---
Author Organization [employer] Address [address] [place] [address] Care Team Providers Care Branding Machine Operator Name Role Phone Eusebio Sprague MD Primary Care Provider [phone] Encounter Details Date Type Department Care Team (Late st Contact Info) Description 12/12/2024 Lab Requisition [facility] - Main Lab [address] [facility] [place] [address] Eusebio Sprague MD [address] [place], [place] [phone] Unspecified atrial fibrillation (CMS/HCC V24, CMS/HCC V28); [...] mmol/L LAB CHEMISTRY METHOD 12/16/2024 2:[address] [facility] Potassium 4.7 3.5 - 5.5 mmol/L LAB CHEMISTRY METHOD 12/16/2024 2:[address] [facility] Chloride 110 96 - 110 mmol/L LAB CHEMISTRY METHOD 12/16/2024 2:[address] [facility] CO2 23 21 - 32 mmol/L LAB CHEMISTRY METHOD 12/16/2024 2:[address] [facility] Anion Gap 8 3 - 11 LAB CHEMISTRY METHOD 12/16/2024 2:[address] [facility] Glucose 80 70 - 100 mg/dL LAB CHEMISTRY METHOD 12/16/2024 2:[address] [facility] BUN 38(H) 5 - 25 mg/dL LAB CHEMISTRY METHOD 12/16/2024 2:[address] [facility] Creatinine 1.51(H) 0.50 - 1.10 mg/dL LAB CHEMISTRY METHOD 12/16/2024 2:[address] [facility] eGFR 33(L) >=60 mL/min/1. 73m2 LAB CHEMISTRY METHOD 12/16/2024 2:[address] [facility] Comment:Calculation based on the Chronic Kidney Disease Epidemiology Collaboration (CKD-EPI) equation refit without adjustment for race. BUN/Creatinine Ratio 25.2 LAB CHEMISTRY METHOD 12/16/2024 2:[address] [facility] Calcium 8.7 8.5 - 10.5 mg/dL LAB CHEMISTRY METHOD 12/16/2024 2:[address] [facility] Blood Venous blood specimen / Unknown Venipuncture / Unknown 12/16/2024 5:01 AM EDT 12/16/2024 11:06 AM EDT us Fahim A Celestine MD LAB BLOOD ORDERABLES Final Resul t [facility] [address] [place] [address], * (ABNORMAL) Complete blood count (12/16/2024 5:01 AM EDT) WBC 4.1(L) 4.8 - 10.8 K/mcL LAB HEMETOLOGY METHOD 12/16/2024 11:52 AM EDT [facility] RBC 3.60(L) 3.80 - 4.80 M/mcL LAB HEMETOLOGY METHOD [facility]24 [facility] Hemoglobin 11.3(L) 11.5 - 16.0 g/dL LAB HEMETOLOGY METHOD 12/16/2024 11:[address] [facility] Hematocrit 36.7 35.0 - 47.0 % LAB HEMETOLOGY METHOD 12/16/2024 11:[address] [facility] MCV 100.8(H) 79.0 - 98.0 FL LAB HEMETOLOGY METHOD 12/16/2024 11:[address] [facility] MCH 31.0 27.0 - 32.0 pcg LAB HEMETOLOGY METHOD 12/16/2024 11:52 AM EDT [facility] MCHC 30.8(L) 32.0 - 37.0 g/dL LAB HEMETOLOGY METHOD 12/16/2024 11:[address] [facility] RDW 14.0 11.0 - 15.0 % LAB HEMETOLOGY METHOD 12/16/2024 11:[address] [facility] Platelets 168 130 - 400 K/mcL LAB HEMETOLOGY METHOD 12/16[facility]24 [facility] MPV 9.8 7.0 - 11.0 FL LAB HEMETOLOGY METHOD 12/16/2024 11:52 AM EDT [facility] NRBC 0.0 <1.0 % LAB HEMETOLOGY METHOD 12/16/2024 11:52 AM EDT [facility] NRBC Absolute 0.00 <0.10 K/mcL LAB HEMETOLOGY METHOD 12/16/2024 11:52 AM EDT [facility] Blood Venous blood specimen / Unknown Venipuncture / Unknown 12/16/2024 5:01 AM EDT 12/16/2024 11:06 AM EDT Eusebio Sprague MD LAB BLOOD ORDERABLES Final Resul t Performing Organization Address City/[facility]/ZIP Co de Phone Number [facility] [address] [place] [address], [place] [phone] * (ABNORMAL) Prothrombin time with INR (12/16/2024 5:01 AM EDT) Protime 29.8(H) 10.6 - 13.9 sec LAB COAGULATION METHOD 12/16/2024 11:25 AM EDT [facility] INR 2.4 LAB COAGULATION METHOD 12/16/2024 11:25 AM EDT [facility] Blood Venous blood specimen / Unknown Venipuncture / Unknown 12/16/2024 5:01 AM EDT 12/16/2024 11:06 AM EDT Eusebio Sprague MD LAB BLOOD ORDERABLES Final Resul t Performing Organization Address City/[facility]/ZIP Co de Phone Number [facility] [address] [place] [address], [place] [phone] documented in this encounter Visit Diagnoses Diagnosis Unspecified atrial fibrillation (CMS/HCC V24, CMS/HCC V28) Essential (primary) hypertension Unspecified essential hypertension documented in this encounter Care Teams Branding Machine Operator Relationship Specialty Start Date End Date Eusebio Sprague MD [address] [place] [address] [address] [place] [address] PCP - General Geriatric Medicine 11/05/24 documented as of this encounter
--- OUTSIDE RECORDS SUMMARY | 2025-02-26 17:10 | XMS_ITS | Patient Health Record ---
Author Organization [facility] Address [address] [place] [address] Care Team Providers Care Senior Asp Net Developer Name Role Phone Jose Cruz Alvarez MD [...] Notes Problem Long-term current use of anticoagulant (789799128) long term care phlebotomist (current) use of anticoagulants (Z79.01) Active confirmed Problem Iron deficiency anemia (82422667) Iron deficiency anemia (D50.9) Active confirmed Problem Polyp colon (81840645) Colon polyp (K63.5) Active confirmed Problem Erosive esophagitis (56895490) Erosive esophagitis (K22.10) Active confirmed Plan Of Treatment Future Test Test Name Order Date UPPER GI ENDOSCOPY 03/01/2016 COLONOSCOPY 03/01/2016 Insurance Providers Payer Name Payer Address Payer Phone Subscriber Number Group Number Insured Name Patient Relationship to Insured Coverage Start Date Coverage End Date [facility] [address] [facility] [place] [phone] [id number] CHRISTAL ROGERS Self - patient is the insured Medical (General) History Medical History History ICD Code colonoscopy 07-02-10 hemorrhoids history of intermittent rectal itching a nd discomfort breast cancer on the left, s tatus post mastectomy and lymph node resetion in 1992 hypertension melanoma shingles with post-hepatic neuralgia Denies PR,DM,CVA,Lung disease,renal dise ase Atrial fibrillation blood clots Surgical History Surgery Date(Month/Year) mastectomy and lymph node resection in -left breast removal of melanoma from the back hysterectomy for fibroid disease lumpectomy, right breast 2014
--- OUTSIDE RECORDS SUMMARY | 2025-02-26 17:10 | XMS_ITS | Encounter Summary ---
Author Organization [employer] Address [address] [place] [address] Care Team Providers Care Optical Goods Drill Operator Name Role Phone Eusebio Sprague MD Primary Care Provider [phone] Encounter Details Date Type Department Care Team (Late st Contact Info) Description 12/10/2024 Lab Requisition [facility] - Main Lab 299 [facility] [place] [address] Eusebio Sprague MD [address] [place], [place] [phone] Unspecified atrial fibrillation (CMS/HCC V24, CMS/HCC V28) [...] sec LAB COAGULATION METHOD 12/11/2024 10:10 AM [facility] INR 2.2 LAB COAGULATION METHOD 12/11/2024 10:10 AM [facility] Blood Venous blood specimen / Unknown Venipuncture / Unknown 12/11/2024 6:52 AM EDT 12/11/2024 9:39 AM EDT Eusebio Sprague MD LAB BLOOD ORDERABLES Final Resul t [facility] [address] [place] [address], documented in this encounter Visit Diagnoses Diagnosis Unspecified atrial fibrillation (CMS/HCC V24, CMS/HCC V28) documented in this encounter Care Teams Optical Goods Drill Operator Relationship Specialty Start Date End Date Eusebio Sprague MD [address] [place] [address] [address] [place] [address] PCP - General Geriatric Medicine 11/05/24 documented as of this encounter
--- OUTSIDE RECORDS SUMMARY | 2025-02-26 17:10 | XMS_ITS | Encounter Summary ---
Author Organization [employer] Address [address] [place] [address] Care Team Providers Care Coupling Machine Operator Name Role Phone Eusebio Sprague MD Primary Care Provider [phone] Encounter Details Date Type Department Care Team (Late st Contact Info) Description 12/03/2024 Lab Requisition [facility] - Main Lab 299 [facility] [place] [address] Eusebio Sprague MD [address] [place], [place] [phone] Unspecified atrial fibrillation (CMS/HCC V24, CMS/HCC V28) [...] sec LAB COAGULATION METHOD 12/04/2024 9:04 AM [facility] INR 2.4 LAB COAGULATION METHOD 12/04/2024 9:04 AM [facility] Blood Venous blood specimen / Unknown Venipuncture / Unknown 12/04/2024 6:47 AM EDT 12/04/2024 8:37 AM EDT Eusebio Sprague MD LAB BLOOD ORDERABLES Final Resul t [facility] ([facility]) [facility] [address] [place] [address], documented in this encounter Visit Diagnoses Diagnosis Unspecified atrial fibrillation (CMS/HCC V24, CMS/HCC V28) documented in this encounter Care Teams Coupling Machine Operator Relationship Specialty Start Date End Date Eusebio Sprague MD [address] [place] [address] [address] [place] [address] PCP - General Geriatric Medicine 11/05/24 documented as of this encounter
--- OUTSIDE RECORDS SUMMARY | 2025-02-26 17:10 | XMS_ITS | Encounter Summary ---
Author Organization [employer] Address [address] [place] [address] Care Team Providers Care Contractor Field Hauling Name Role Phone Eusebio Sprague MD Primary Care Provider [phone] Encounter Details Date Type Department Care Team (Late st Contact Info) Description 11/29/2024 Lab Requisition [facility] - Main Lab [address] [place] [address] Eusebio Srpague MD [address] [place], [place] [id number] Unspecified atrial fibrillation (CMS/HCC V24, CMS/HCC V28); [...] mmol/L LAB CHEMISTRY METHOD 12/01/2024 12:06 PM [facility] Potassium 4.7 3.5 - 5.5 mmol/L LAB CHEMISTRY METHOD 12/01/2024 12:06 PM [facility] Chloride 113(H) 96 - 110 mmol/L LAB CHEMISTRY METHOD 12/01/2024 12:06 PM [facility] CO2 25 21 - 32 mmol/L LAB CHEMISTRY METHOD 12/01/2024 12:06 PM [facility] Anion Gap 4 3 - 11 LAB CHEMISTRY METHOD 12/01/2024 12:06 PM [facility] Glucose 71 70 - 100 mg/dL LAB CHEMISTRY METHOD 12/01/2024 12:06 PM [facility] BUN 38(H) 5 - 25 mg/dL LAB CHEMISTRY METHOD 12/01/2024 12:06 PM [facility] Creatinine 1.61(H) 0.50 - 1.10 mg/dL LAB CHEMISTRY METHOD 12/01/2024 12:06 PM [facility] eGFR 31(L) >=60 mL/min/1. 73m2 LAB CHEMISTRY METHOD 12/01/2024 12:06 PM [facility] Comment:Calculation based on the Chronic Kidney Disease Epidemiology Collaboration (CKD-EPI) equation refit without adjustment for race. BUN/Creatinine Ratio 23.6 LAB CHEMISTRY METHOD 12/01/2024 12:06 PM [facility] Calcium 8.8 8.5 - 10.5 mg/dL LAB CHEMISTRY METHOD 12/01/2024 12:06 PM [facility] Blood Venous blood specimen / Unknown Venipuncture / Unknown 12/01/2024 6:20 AM EDT 12/01/2024 9:55 AM EDT us Eusebio Sprague MD LAB BLOOD ORDERABLES Final Resul t [facility] [address] [place] [address], * (ABNORMAL) Complete blood count (12/01/2024 6:20 [...] % LAB HEMETOLOGY [facility] Platelets 173 130 - [...] Resul t Performing Organization Address [facility] Co de Phone Number [facility] [address] [place] [address], [place] [phone] * (ABNORMAL) Prothrombin time with INR (12/01/2024 [...] ORDERABLES Final Resul t Performing Organization Address City/[facility]/ZIP Co de Phone Number [facility] [address] [place] [address], [place] [phone] documented in this encounter Visit Diagnoses Diagnosis Unspecified atrial fibrillation (CMS/HCC V24, CMS/HCC V28) Essential (primary) hypertension Unspecified essential hypertension documented in this encounter Care Teams Contractor Field Hauling Relationship Specialty Start Date End Date Eusebio Sprague MD [address] [place] [address] [address] [place] [address] PCP - General Geriatric Medicine 11/05/24 documented as of this encounter
--- OUTSIDE RECORDS SUMMARY | 2025-02-26 17:10 | XMS_ITS | Encounter Summary ---
Author Organization [employer] Address [address] [place] [address] Care Team Providers Care Rubber Insulator Name Role Phone Eusebio Sprague MD Primary Care Provider [phone] Encounter Details Date Type Department Care Team (Late st Contact Info) Description 11/12/2024 Lab Requisition [facility] - Main Lab [address] [facility] [place] [address] Eusebio Sprague MD [address] [place], [place] [phone] Unspecified atrial fibrillation (CMS/HCC V24, CMS/HCC V28) [...] V28) documented in this encounter Care Teams Rubber Insulator Relationship Specialty Start Date End Date Eusebio Sprague MD [address] [place], [place] [phone] PCP - General Geriatric Medicine 11/05/24 documented as of this encounter
== END 2025-02-26 14:20 | disposition home or self-care (01) ==
LOC: HO.HCS 13:47
PROVIDERS: PCP Physician Assistant; Visit Provider Internal Medicine
DX: I48.0 Paroxysmal atrial fibrillation (principal); I50.32 Chronic diastolic (congestive) heart failure; R94.39 Abnormal result of other cardiovascular function study; I36.2 Nonrheumatic tricuspid (valve) stenosis with insufficiency
CPT/HCPCS: 93010; 99214; G2211

== ENCOUNTER → 2025-02-26 13:47 | Outpatient (BNVA) | payer MEDICARE, SELFPAY | PROVIDERS: PCP Physician Assistant; Visit Provider Internal Medicine | DX: I48.0 Paroxysmal atrial fibrillation (principal); I11.0 Hypertensive heart disease with heart failure; I50.32 Chronic diastolic (congestive) heart failure; R94.39 Abnormal result of other cardiovascular function study; I36.2 Nonrheumatic tricuspid (valve) stenosis with insufficiency | CPT/HCPCS: 93005; 99212 ==

== ENCOUNTER 2025-03-16 13:33 | Outpatient (REF) | payer MEDICARE, SELFPAY ==
[2025-03-16 14:28] LABS: MANUAL DIFF FLAG NO
[2025-03-16 14:41] LABS: Hematocrit 44.5 % (37.0-47.0); Hemoglobin 14.6 g/dl (12.0-16.0); Imm Gran Abs Auto 0.05 X10*3/uL (0.00-0.03); Imm Gran Pct Auto 0.8 % (0.0-0.4); Lymphocytes Absolute Auto 2.0 X10*3/uL (1.2-4.9); Mean Corpuscular HGB Conc 32.8 g/dl (31.0-35.0); Mean Corpuscular Hemoglobin 31.0 pg (27.0-33.0); Mean Corpuscular Volume 94.5 fL (80.0-98.0); NRBC Abs Auto 0.000 X10*3/uL (0.0-0.012); NRBC Pct Auto 0.0 /100WBC (0.0-0.2); Platelet Count 147 X10*3/uL (160-400); Red Blood Count 4.71 X10*6/uL (4.20-5.50); White Blood Count 6.2 X10*3/uL (4.8-10.8)
[2025-03-16 15:08] LABS: Appearance Urine Cloudy; Glucose Urine UA Negative (Negative); PH 5.0 (5.0-9.0); Specific Gravity - Urine 1.020 (1.005-1.025); UMIC TRIGGER UA YES
[2025-03-16 15:09] LABS: Parathyroid Hormone Intact 144.1 pg/mL (8.7-77.1)
[2025-03-16 15:27] LABS: Anion Gap 11 (12-20); Blood Urea Nitrogen 31 mg/dL (9-16); Calcium 9.9 mg/dL (8.4-10.2); Carbon Dioxide 24 mmol/L (22-29); Chloride 111 mmol/L (96-108); Estimated Glomerular Filt Rate 30; Magnesium 2.1 mg/dL (1.6-2.6); Potassium 4.3 mmol/L (3.3-5.1); Sodium 142 mmol/L (135-145)
[2025-03-16 15:33] LABS: Protein/Creatinine Ratio, Ur 0.81 (<0.2); Total Protein Urine Random 97 mg/dL (<12)
[2025-03-16 15:40] LABS: Microalbum/Creatinine Ratio Ur 503.3 ug/mg cr (<30)
[2025-03-16 17:58] LABS: Free T4 (Free Thyroxine) 1.20 ng/dL (0.71-1.85)
== END 2025-03-16 13:34 | disposition home or self-care (01) ==
LOC: HO.LAB 13:33
PROVIDERS: Absent Provider Internal Medicine; PCP Physician Assistant; Referring Provider Internal Medicine; Visit Provider Internal Medicine Medical Oncology
DX: I48.0 Paroxysmal atrial fibrillation (principal); N18.32 Chronic kidney disease, stage 3b; R94.6 Abnormal results of thyroid function studies
CPT/HCPCS: 36415; 80048; 81001; 82043; 82306; 82570; 83735; 83970; 84100; 84156; 84439; 84443; 85025; 85610; 99211

== ENCOUNTER 2025-03-16 13:33 | Outpatient (AMB) | payer MEDICARE, SELFPAY ==
[2025-03-16 13:40] LABS: Prothrombin Time Whole Bld POC 21.3 sec (11.1-13.5); ~PT, ~INR - Anti Coag Clinic 1.8 (0.9-1.1)
--- NOTE | 2025-03-16 13:51 | MHC.OFFVISCO ---
Intake Intake Visit Reasons: Anticoagulation Allergies No Known Allergies (No Known Allergies*) Allergy (Verified 03/16/25 13:34) Medication List - Last Reconciled 03/16/25 by Anita Mendez RN acetaminophen 1,000 mg PO Q6H PRN amiodarone 100 mg (1/2 x 200 mg) PO DAILY 90 days atorvastatin 20 mg PO DAILY calcium carbonate (Calcium 600) 600 mg PO DAILY comp.stocking,knee,long,medium Need for 15-20 mmHg compression metoprolol succinate ER 50 mg PO DAILY 90 days omeprazole 20 mg PO DAILY PRN raloxifene 60 mg PO DAILY walker (Ultra-Light Rollator misc) As directed warfarin 2 mg See Protocol PO 6XW Nursing Note Pt came to Anticoag today with her brother, using walker steadily, a+o to person. INR 1.8 out of therapeutic range Medications and supplements reviewed Patient status: no longer has VNA - residing in assisted living, seems pleasant and offers no complaints, mobility is guarded and moves slowly and steadily with walker Medications or supplements: no changes Diet: good - ate a lot during gi Denies any signs and symptoms of bleeding or clotting or unusual bruising Bleeding, bruising, clotting discussed Nutritional guidance given: avoid greens x 3 days, eat orange and reds to help raise the INR Dose: keep same dose - (previous INR was 3.0) 3mg x 6 days/ 2mg x 1 day F/U INR Date: 2 weeks ?? Patient verbalizing understanding of instructions given. Anti-Coag Initial Assessment Social Hx Patient Tobacco Use Status: Never used Tobacco alcohol intake: never Coding Level of Care Code Est Patient Level 1 Diagnoses Current use of anticoagulant therapy Z79.01 Assessment & Plan Assessment & Plan (1) Current use of anticoagulant therapy: Code(s): Z79.01 - supervisor intermediates (current) use of anticoagulants Category: Medical
== END 2025-03-16 13:57 | disposition home or self-care (01) ==
LOC: HO.ACS 13:33
PROVIDERS: PCP Physician Assistant; Visit Provider Internal Medicine Medical Oncology
DX: Z79.01 Long term (current) use of anticoagulants (principal)

== ENCOUNTER 2025-03-25 13:14 | Outpatient (REF) | payer MEDICARE, SELFPAY ==
--- NOTE | ~2025-03-25 | MM_ITS ---
EXAMINATION: MM SCREENING DIGITAL BREAST TOMOSYNTHESIS, RIGHT CLINICAL INFORMATION: Screening. Asymptomatic. Left mastectomy. COMPARISON: Mammography: This study is compared with prior exams dating back to TECHNIQUE: Digital breast tomosynthesis is performed in both the craniocaudal and mediolateral oblique views along with computer-aided detection (CAD). Synthesized 2D images are generated from the tomosynthesis. FINDINGS: There are scattered areas of fibroglandular density. Post lumpectomy changes. There are no significant masses, abnormal calcifications, or other abnormalities. MM/MM tomosynthesis screening RT IMPRESSION: No mammographic evidence of malignancy. ASSESSMENT: BI-RADS Category 2: Benign RECOMMENDATION: Routine annual mammography screening. 1 year F/U This examination should not preclude the clinical evaluation of a suspicious palpable abnormality. This patient's information was entered into a reminder system with a target due date for their next mammogram. Electronically signed by: Smitha Garcia DO 03/27/2025 06:35 PM [facility]
--- OUTSIDE RECORDS SUMMARY | 2025-03-25 20:37 | XMS_ITS | Encounter Summary ---
Author Organization [employer] Address [address] [place] [address] Care Team Providers Care Script Coordinator Name Role Phone Eusebio Sprague MD Primary Care Provider [phone] Encounter Details Date Type Department Care Team (Late st Contact Info) Description 12/20/[address] [facility] - Main Lab [address] [place] [address] Eusebio Sprague MD [address] [place], [place] [phone] Unspecified atrial fibrillation (CMS/HCC V24, CMS/HCC V28); [...] mmol/L LAB CHEMISTRY METHOD 12/22/2024 1:13 PM [facility] Potassium 4.8 3.5 - 5.5 mmol/L LAB CHEMISTRY METHOD 12/22/2024 1:13 PM [facility] Chloride 109 96 - 110 mmol/L LAB CHEMISTRY METHOD 12/22/2024 1:13 PM [facility] CO2 25 21 - 32 mmol/L LAB CHEMISTRY METHOD 12/22/2024 1:13 PM [facility] Anion Gap 6 3 - 11 LAB CHEMISTRY METHOD 12/22/2024 1:13 PM [facility] Glucose 72 70 - 100 mg/dL LAB CHEMISTRY METHOD 12/22/2024 1:13 PM [facility] BUN 33(H) 5 - 25 mg/dL LAB CHEMISTRY METHOD 12/22/2024 1:13 PM [facility] Creatinine 1.53(H) 0.50 - 1.10 mg/dL LAB CHEMISTRY METHOD 12/22/2024 1:13 PM [facility] eGFR 33(L) >=60 mL/min/1. 73m2 LAB CHEMISTRY METHOD 12/22/2024 1:13 PM [facility] Comment:Calculation based on the Chronic Kidney Disease Epidemiology Collaboration (CKD-EPI) equation refit without adjustment for race. BUN/Creatinine Ratio 21.6 LAB CHEMISTRY METHOD 12/22/2024 1:13 PM [facility] Calcium 8.7 8.5 - 10.5 mg/dL LAB CHEMISTRY METHOD 12/22/2024 1:13 PM [facility] Blood Venous blood specimen / Unknown Venipuncture / Unknown 12/22/2024 6:15 AM EDT 12/22/2024 10:44 AM EDT us Fahim A Celestine MD LAB BLOOD ORDERABLES Final Resul t [facility] [address] [place] [address], * (ABNORMAL) Complete blood count (12/22/2024 6:15 AM EDT) WBC 4.7(L) 4.8 - 10.8 K/mcL LAB HEMETOLOGY METHOD 12/22/2024 11:59 AM EDT [facility] RBC 3.70(L) 3.80 - 4.80 M/mcL LAB HEMETOLOGY METHOD 12/22/2024 11:59 AM EDT [facility] Hemoglobin 11.3(L) 11.5 - 16.0 g/dL LAB HEMETOLOGY METHOD 12/22/2024 11:59 AM EDT [facility] Hematocrit 36.4 35.0 - 47.0 % LAB HEMETOLOGY METHOD 12/22/2024 11:59 AM EDT [facility] MCV 99.5(H) 79.0 - 98.0 FL LAB HEMETOLOGY METHOD 12/22/2024 11:59 [facility] MCH 30.9 27.0 - 32.0 pcg LAB HEMETOLOGY METHOD 12/22/2024 11:59 AM EDT [facility] MCHC 31.0(L) 32.0 - 37.0 g/dL LAB HEMETOLOGY METHOD 12/22/2024 11:59 AM EDT [facility] RDW 13.9 11.0 - 15.0 % LAB HEMETOLOGY METHOD 12/22/2024 11:59 AM EDT [facility] Platelets 153 130 - 400 K/mcL LAB HEMETOLOGY METHOD 12/22/2024 11:59 AM EDT [facility] MPV 10.1 7.0 - 11.0 FL LAB HEMETOLOGY METHOD 12/22/2024 11:59 AM EDT [facility] NRBC 0.0 <1.0 % LAB HEMETOLOGY METHOD 12/22/2024 11:59 AM EDT [facility] NRBC Absolute 0.00 <0.10 K/mcL LAB HEMETOLOGY METHOD 12/22/2024 11:59 AM EDT [facility] Blood Venous blood specimen / Unknown Venipuncture / Unknown 12/22/2024 6:15 AM EDT 12/22/2024 10:44 AM EDT Eusebio Sprague MD LAB BLOOD ORDERABLES Final Resul t Performing Organization Address City/[facility]/ZIP Co de Phone Number [facility] [address] [place] [address], [place] [phone] * (ABNORMAL) Prothrombin time with INR (12/22/2024 6:15 AM EDT) Protime 27.8(H) 10.6 - 13.9 sec LAB COAGULATION METHOD 12/22/2024 11:38 AM EDT [facility] INR 2.2 LAB COAGULATION METHOD 12/22/2024 11:38 AM EDT [facility] Blood Venous blood specimen / Unknown Venipuncture / Unknown 12/22/2024 6:15 AM EDT 12/22/2024 10:44 AM EDT Eusebio Sprague MD LAB BLOOD ORDERABLES Final Resul t Performing Organization Address City/[facility]/ZIP Co de Phone Number [facility] [address] [place] [address], [place] [phone] documented in this encounter Visit Diagnoses Diagnosis Unspecified atrial fibrillation (CMS/HCC V24, CMS/HCC V28) Essential (primary) hypertension Unspecified essential hypertension documented in this encounter Care Teams Script Coordinator Relationship Specialty Start Date End Date Eusebio Sprague MD [address] [place] [address] [address] [place] [address] PCP - General Geriatric Medicine 11/05/24 documented as of this encounter
--- OUTSIDE RECORDS SUMMARY | 2025-03-25 20:37 | XMS_ITS | Clinical Summary ---
Author Organization 299 [facility] Address [address] [place] [address] Phone Care Team Providers Care Development Associate Name Role Phone Eusebio Sprague MD Primary Care Provider [phone] Encounters Date Type Department Care Team Description 12/24/2024 Lab Requisition [facility] - Main Lab [address] [place] [address] Eusebio Sprague MD Unspecified atrial [...] (CMS/HCC V24, CMS/HCC V28) Essential (primary) hypertension from Last 3 Months or Most Recently Relevant to Health Maintenance Results * (ABNORMAL) Basic metabolic panel (12/22/2024 6:15 AM EDT) Sodium 140 133 - 145 mmol/L LAB CHEMISTRY METHOD 12/22/2024 1:[address] [facility] Potassium 4.8 3.5 - 5.5 mmol/L LAB CHEMISTRY METHOD 12/22/2024 1:13 PM [facility] Chloride 109 96 - 110 mmol/L LAB CHEMISTRY METHOD 12/22/2024 1:[address] [facility] CO2 25 21 - 32 mmol/L LAB CHE[facility]STR[facility] Gap 6 3 - 11 LAB CHEMISTRY METHOD 12/22/2024 1:[address] [facility] Glucose 72 70 - 100 mg/dL LAB CHEMISTRY METHOD 12/22/2024 1:[address] [facility] BUN 33(H) 5 - 25 mg/dL LAB CHEMISTRY METHOD 12/22/2024 1:[address] [facility] Creatinine 1.53(H) 0.50 - 1.10 mg/dL LAB CHEMISTRY METHOD 12/22/2024 1:[address] [facility] eGFR 33(L) >=60 mL/min/1. 73m2 LAB CHEMISTRY METHOD 12/22/2024 1:[address] [facility] Comment:Calculation based on the Chronic Kidney Disease Epidemiology Collaboration (CKD-EPI) equation refit without adjustment for race. BUN/Creatinine Ratio 21.6 LAB CHEMISTRY METHOD 12/22/2024 1:[address] [facility] Calcium 8.7 8.5 - 10.5 mg/dL LAB CHEMISTRY METHOD 12/22/2024 1:[address] [facility] Blood Venous blood specimen / Unknown Venipuncture / Unknown 12/22/2024 6:15 AM EDT 12/22/2024 10:44 AM EDT us Eusebio Sprague MD LAB BLOOD ORDERABLES Final Resul t [facility] [address] [place] [address], from Last 3 Months or Most Recently Relevant to [place] [phone] [employer] Care Teams Development Associate Relationship Specialty Start Date End Date Eusebio Sprague MD [address] [facility] [address] [place] [address] PCP - General Geriatric Medicine 11/05/24
--- OUTSIDE RECORDS SUMMARY | 2025-03-25 20:37 | XMS_ITS | Encounter Summary ---
Author Organization [employer] Address [address] [place] [address] Care Team Providers Care Forestry Instructor Name Role Phone Eusebio Sprague MD Primary Care Provider [phone] Encounter Details Date Type Department Care Team (Late st Contact Info) Description 12/10/2024 Lab Requisition [facility] - Main Lab [address] [facility] [place] [address] Eusebio Sprague MD [address] [place], [place] [phone] Unspecified atrial fibrillation (CMS/HCC V24, CMS/HCC V28) [...] sec LAB COAGULATION METHOD 12/11/2024 10:10 AM [facility] INR 2.2 LAB COAGULATION METHOD 12/11/2024 10:10 AM [facility] Blood Venous blood specimen / Unknown Venipuncture / Unknown 12/11/2024 6:52 AM EDT 12/11/2024 9:39 AM EDT Eusebio Sprague MD LAB BLOOD ORDERABLES Final Resul t [facility] ([facility]) [facility] [address] [place] [address], documented in this encounter Visit Diagnoses Diagnosis Unspecified atrial fibrillation (CMS/HCC V24, CMS/HCC V28) documented in this encounter Care Teams Forestry Instructor Relationship Specialty Start Date End Date Eusebio Sprague MD [address] [place] [address] [address] [place] [address] PCP - General Geriatric Medicine 11/05/24 documented as of this encounter
--- OUTSIDE RECORDS SUMMARY | 2025-03-25 20:37 | XMS_ITS | Encounter Summary ---
Author Organization [employer] Address [address] [place] [address] Care Team Providers Care Continuous Improvement Director Name Role Phone Eusebio Sprague MD Primary Care Provider [phone] Encounter Details Date Type Department Care Team (Late st Contact Info) Description 12/05/2024 Lab Requisition [facility] - Main Lab [address] [facility] [place] [address] Eusebio Sprague MD [address] [place], [place] [phone] Unspecified atrial fibrillation (CMS/HCC V24, CMS/HCC V28); [...] mmol/L LAB CHEMISTRY METHOD 12/08/2024 1:54 PM [facility] Potassium 5.1 3.5 - 5.5 mmol/L LAB CHEMISTRY METHOD 12/08/2024 1:54 PM [facility] Chloride 111(H) 96 - 110 mmol/L LAB CHEMISTRY METHOD 12/08/2024 1:54 PM [facility] CO2 23 21 - 32 mmol/L LAB CHEMISTRY METHOD 12/08/2024 1:54 PM [facility] Anion Gap 7 3 - 11 LAB CHEMISTRY METHOD 12/08/2024 1:54 PM [facility] Glucose 68(L) 70 - 100 mg/dL LAB CHEMISTRY METHOD 12/08/2024 1:54 PM [facility] BUN 34(H) 5 - 25 mg/dL LAB CHEMISTRY METHOD 12/08/2024 1:54 PM [facility] Creatinine 1.55(H) 0.50 - 1.10 mg/dL LAB CHEMISTRY METHOD 12/08/2024 1:54 PM [facility] eGFR 32(L) >=60 mL/min/1. 73m2 LAB CHEMISTRY METHOD 12/08/2024 1:54 PM [facility] Comment:Calculation based on the Chronic Kidney Disease Epidemiology Collaboration (CKD-EPI) equation refit without adjustment for race. BUN/Creatinine Ratio 21.9 LAB CHEMISTRY METHOD 12/08/2024 1:54 PM [facility] Calcium 8.8 8.5 - 10.5 mg/dL LAB CHEMISTRY METHOD 12/08/2024 1:54 PM [facility] Blood Venous blood specimen / Unknown Venipuncture / Unknown 12/08/2024 6:23 AM EDT 12/08/2024 10:07 AM EDT us Eusebio Sprague MD LAB BLOOD ORDERABLES Final Resul t [facility] [address] [place] [address], * (ABNORMAL) Complete blood count (12/08/2024 6:23 AM EDT) WBC 5.6 4.8 - 10.8 K/mcL LAB HEMETOLOGY METHOD 12/08/2024 11:03 AM EDT [facility] RBC 3.80 3.80 - 4.80 M/mcL LAB HEMETOLOGY METHOD 12/08/2024 [facility] Hemoglobin 11.8 11.5 - 16.0 g/dL LAB HEMETOLOGY METHOD 12/08/2024 11:03 AM [facility] Hematocrit 37.4 35.0 - 47.0 % LAB HEMETOLOGY METHOD 12/08/2024 11:03 AM [facility] MCV 99.2(H) 79.0 - 98.0 FL LAB HEMETOLOGY METHOD 12/08/2024 11:03 AM [facility] MCH 31.3 27.0 - 32.0 pcg LAB HEMETOLOGY METHOD 12/08/2024 11:03 AM [facility] MCHC 31.6(L) 32.0 - 37.0 g/dL LAB HEMETOLOGY METHOD 12/08/2024 11:03 AM [facility] RDW 14.4 11.0 - 15.0 % LAB HEMETOLOGY METHOD 12/08/2024 11:03 AM [facility] Platelets 176 130 - 400 K/mcL LAB HEMETOLOGY METHOD 12/08/2024 11:03 AM [facility] MPV 10.0 7.0 - [...] ORDERABLES Final Resul t Performing Organization Address [facility] Co de Phone Number [facility] [address] [place] [address], [place] [phone] * (ABNORMAL) Prothrombin time with INR (12/08/2024 [...] ORDERABLES Final Resul t Performing Organization Address City/[facility]/ZIP Co de Phone Number [facility] [address] [place] [address], [place] [phone] documented in this encounter Visit Diagnoses Diagnosis Unspecified atrial fibrillation (CMS/HCC V24, CMS/HCC V28) Essential (primary) hypertension Unspecified essential hypertension documented in this encounter Care Teams Continuous Improvement Director Relationship Specialty Start Date End Date Eusebio Sprague MD [address] [place] [address] [address] [place] [address] PCP - General Geriatric Medicine 11/05/24 documented as of this encounter
--- OUTSIDE RECORDS SUMMARY | 2025-03-25 20:37 | XMS_ITS | Encounter Summary ---
Author Organization [employer] Address [address] [place] [address] Care Team Providers Care Information Security Director Name Role Phone Eusebio Sprague MD Primary Care Provider [phone] Encounter Details Date Type Department Care Team (Late st Contact Info) Description 12/24/2024 Lab Requisition [facility] - Main Lab [address] [facility] [place] [address] Eusebio Sprague MD [address] [place], [place] [phone] Unspecified atrial fibrillation (CMS/HCC V24, CMS/HCC V28) [...] V28) documented in this encounter Care Teams Information Security Director Relationship Specialty Start Date End Date Eusebio Sprague MD [address] [place], [place] [phone] PCP - General Geriatric Medicine 11/05/24 documented as of this encounter
--- OUTSIDE RECORDS SUMMARY | 2025-03-25 20:37 | XMS_ITS | Patient Health Record ---
Author Organization [facility] Address [address] [place] [address] Care Team Providers Care Director Oracle Name Role Phone Kim LOPEZ, Jose Cruz Primary Care Provider Unavaila Ryan Bentley Jr Unavailable [phone] Marjan Maya Unavailable Unavailable Reason For Referral No Information Medications Medication SIG (Take, Route, Frequency, Duration) Notes Start Date End Date Status Omeprazole 20 MG Capsule Delayed Release 1 capsule Orally Once a day; Duration: 90 days Active Warfarin Sodium 2 MG Tablet 1 tablet Ora lly Once a day Active amLODIPine Besylate 5 MG Tablet 1 tablet Orally Once a day Active hydroCHLOROthiazide 25 MG Tablet 1 tablet Orally Once a day Active Ferrous Sulfate 325 (65 Fe) MG Tablet 1 tablet Orally twice a day Not-Taking/PRN Letrozole 2.5 MG Tablet 1 tablet Orally Once a day Active Potassium Chloride Lena ER 10 MEQ Tablet Extended Release 1 tablet with food Orally Once a day Active Calcium 1200 mg tablet 1 tablet Oral qd Active Social History Social History Additional Details Category Social Info Options Details Miscellaneous: Marital status: Occupation: retired Problems Problem Type SNOMED Code ICD Code Onset Dates Problem Status W/U Status Risk Notes Problem Long-term current use of anticoagulant (136208761) custodial (current) use of anticoagulants (Z79.01) Active confirmed Problem Iron deficiency anemia (58955231) Iron deficiency anemia (D50.9) Active confirmed Problem Polyp colon (59222489) Colon polyp (K63.5) Active confirmed Problem Erosive esophagitis (48024363) Erosive esophagitis (K22.10) Active confirmed Plan Of Treatment Future Test Test Name Order Date UPPER GI ENDOSCOPY 03/01/2016 COLONOSCOPY 03/01/2016 Insurance Providers Payer Name Payer Address Payer Phone Subscriber Number Group Number Insured Name Patient Relationship to Insured Coverage Start Date Coverage End Date [facility] [address] [place] [phone] [id number] CHRISTAL ROGERS Self - patient is the insured Medical (General) History Medical History History ICD Code colonoscopy 07-02-09 hemorrhoids history of intermittent rectal itching a nd discomfort breast cancer on the left, s tatus post mastectomy and lymph node resetion in 1992 hypertension melanoma shingles with post-hepatic neuralgia Denies CO,DM,CVA,Lung disease,renal dise ase Atrial fibrillation blood clots Surgical History Surgery Date(Month/Year) mastectomy and lymph node resection in -left breast removal of melanoma from the back hysterectomy for fibroid disease lumpectomy, right breast 2013
--- OUTSIDE RECORDS SUMMARY | 2025-03-25 20:37 | XMS_ITS | Encounter Summary ---
Author Organization [employer] Address [address] [place] [address] Care Team Providers Care Transformer Repairer Name Role Phone Eusebio Sprague MD Primary Care Provider Encounter Details Date Type Department Care Team (Late st Contact Info) Description 12/17/2024 Lab Requisition [facility] - Main Lab 299 [facility] [place] [address] Eusebio Sprague MD [address] [place], [place] [phone] Unspecified atrial fibrillation (CMS/HCC V24, CMS/HCC V28) [...] sec LAB COAGULATION METHOD 12/18/2024 10:20 AM [facility] INR 1.8 LAB COAGULATION METHOD 12/18/2024 10:20 AM [facility] Blood Venous blood specimen / Unknown Venipuncture / Unknown 12/18/2024 6:57 AM EDT 12/18/2024 9:44 AM EDT Eusebio Sprageu MD LAB BLOOD ORDERABLES Final Resul t [facility] [address] [place] [address], documented in this encounter Visit Diagnoses Diagnosis Unspecified atrial fibrillation (CMS/HCC V24, CMS/HCC V28) documented in this encounter Care Teams Transformer Repairer Relationship Specialty Start Date End Date Eusebio Sprague MD [address] [place] [address] [address] [place] [address] PCP - General Geriatric Medicine 11/05/24 documented as of this encounter
--- OUTSIDE RECORDS SUMMARY | 2025-03-25 20:37 | XMS_ITS | Encounter Summary ---
Author Organization [employer] Address [address] [place] [address] Care Team Providers Care Server Systems Administrator Name Role Phone Eusebio Sprague MD Primary Care Provider [phone] Encounter Details Date Type Department Care Team (Late st Contact Info) Description 11/15/2024 Lab Requisition [facility] - Main Lab [address] [facility] [place] [address] Eusebio Sprague MD [address] [place], [place] [id number] Unspecified atrial fibrillation (CMS/HCC V24, CMS/HCC V28); [...] unspecified documented in this encounter Care Teams Server Systems Administrator Relationship Specialty Start Date End Date Eusebio Sprague MD [address] [place], [place] [id number] PCP - General Geriatric Medicine 11/05/24 documented as of this encounter
--- OUTSIDE RECORDS SUMMARY | 2025-03-25 20:38 | XMS_ITS | Encounter Summary ---
Author Organization [employer] Address [address] [place] [address] Care Team Providers Care Evp Strategy Name Role Phone Eusebio Sprague MD Primary Care Provider [phone] Encounter Details Date Type Department Care Team (Late st Contact Info) Description 11/05/2024 Lab Requisition [facility] - Main Lab [address] [place] [address] Eusebio Sprague MD [address] [place], [place] [id number] Unspecified atrial fibrillation (CMS/HCC V24, CMS/HCC V28); [...] Results * Magnesium (11/05/2024 6:51 AM EDT) [facility] Magnesium 2.5 1.9 - 2.6 mg/dL LAB CHEMISTRY METHOD 11/05/2024 12:06 PM EDT [facility] Blood Venous blood specimen / Unknown Venipuncture / Unknown 11/05/2024 6:51 AM EDT 11/05/2024 10:39 AM EDT us Eusebio Sprague MD LAB BLOOD ORDERABLES Final Resul t Performing Organization Address City/[facility]/ZIP Co de Phone Number [facility] [address] [place] [address], [place] [phone] * Thyroid stimulating hormone (11/05/2024 6:51 AM EDT) [facility] TSH 2.71 0.40 - 4.00 mcIU/mL LAB CHEMISTRY METHOD 11/05/2024 12:58 PM EDT [facility] Blood Venous blood specimen / Unknown Venipuncture / Unknown 11/05/2024 6:51 AM EDT 11/05/2024 10:39 AM EDT us Eusebio Sprague MD LAB BLOOD ORDERABLES Final Resul t [facility] [address] [place] [address], [place] [phone] * Vitamin D 25 hydroxy (11/05/2024 6:51 AM EDT) [facility] Vit D, 25-Hydroxy 38.0 30.0 - 80.0 ng/mL LAB CHEMISTRY METHOD 11/05/2024 12:58 PM EDT [facility] Blood Venous blood specimen / Unknown Venipuncture / Unknown 11/05/2024 6:51 AM EDT 11/05/2024 10:39 AM EDT us Eusebio Sprague MD LAB BLOOD ORDERABLES Final Resul t Performing Organization Address [facility] Co de Phone Number [facility] [address] [place] [address], [place] [phone] * Vitamin B12 (11/05/2024 6:51 AM EDT) [facility] Vitamin B-12 387 250 - 900 pcg/mL LAB CHEMISTRY METHOD 11/05/2024 12:33 PM EDT [facility] Blood Venous blood specimen / Unknown Venipuncture / Unknown 11/05/2024 6:51 AM EDT 11/05/2024 10:39 AM EDT us Eusebio Sprague MD LAB BLOOD ORDERABLES Final Resul t Performing Organization Address [facility] de Phone Number [facility] [address] [place] [address], [place] [phone] * Folate (11/05/2024 6:51 AM EDT) [facility] Folate 8.7 2.8 - 17.0 ng/ml LAB CHEMISTRY METHOD 11/05/2024 12:33 PM EDT [facility] Blood Venous blood specimen / Unknown Venipuncture / Unknown 11/05/2024 6:51 AM EDT 11/05/2024 10:39 AM EDT us Eusebio Sprague MD LAB BLOOD ORDERABLES Final Resul t Performing Organization Address [facility] Co de Phone Number [facility] [address] [place] [address], [place] [phone] * (ABNORMAL) Prothrombin time with INR (11/05/2024 6:51 AM EDT) [facility] Protime 17.5(H) 10.6 - 13.9 sec LAB COAGULATION METHOD 11/05/2024 11:22 AM [facility] INR 1.4 LAB COAGULATION METHOD 11/05/2024 11:22 AM [facility] Blood Venous blood specimen / Unknown Venipuncture / Unknown 11/05/2024 6:51 AM EDT 11/05/2024 10:39 AM EDT us Eusebio Sprague MD LAB BLOOD ORDERABLES Final Resul t [facility] [address] [place] [address], [place] [phone] * (ABNORMAL) Comprehensive metabolic panel (11/05/2024 6:51 AM EDT) [facility] Sodium 140 133 - 145 mmol/L LAB CHEMISTRY METHOD 11/05/2024 12:33 PM [facility] Potassium 4.9 3.5 - 5.5 mmol/L LAB CHEMISTRY METHOD 11/05/2024 12:33 PM [facility] Chloride 109 96 - 110 mmol/L LAB CHEMISTRY METHOD 11/05/2024 12:33 PM [facility] CO2 25 21 - 32 mmol/L LAB CHEMISTRY METHOD 11/05/2024 12:33 PM [facility] Anion Gap 6 3 - 11 LAB CHEMISTRY METHOD 11/05/2024 12:33 PM [facility] Glucose 86 70 - 100 mg/dL LAB CHEMISTRY METHOD 11/05/2024 12:33 PM [facility] BUN 61(H) 5 - 25 mg/dL LAB CHEMISTRY METHOD 11/05/2024 12:33 PM [facility] Creatinine 1.64(H) 0.50 - 1.10 mg/dL LAB CHEMISTRY METHOD 11/05/2024 12:33 PM [facility] eGFR 30(L) >=60 mL/min/1. 73m2 LAB CHEMISTRY METHOD 11/05/2024 12:33 PM [facility] Comment:Calculation based on the Chronic Kidney Disease Epidemiology Collaboration (CKD-EPI) equation refit without adjustment for race. BUN/Creatinine Ratio 37.2 LAB CHEMISTRY METHOD 11/05/2024 12:33 PM [facility] Calcium 9.2 8.5 - 10.5 mg/dL LAB CHEMISTRY METHOD 11/05/2024 12:33 PM [facility] AST (SGOT) 43(H) 10 - 42 unit/L LAB CHEMISTRY METHOD 11/05/2024 12:33 PM [facility] ALT (SGPT) 47 10 - 60 unit/L LAB CHEMISTRY METHOD 11/05/2024 12:33 PM [facility] Alkaline Phosphatase 85 42 - 121 unit/L LAB CHEMISTRY METHOD 11/05/2024 12:33 PM [facility] Total Protein 5.6(L) 6.0 - 8.0 g/dL LAB CHEMISTRY METHOD 11/05/2024 12:33 PM [facility] Albumin 3.0(L) 3.2 - 5.0 g/dL LAB CHEMISTRY METHOD 11/05/2024 12:33 PM [facility] Total Bilirubin 0.9 0.0 - 1.4 mg/dL LAB CHEMISTRY METHOD 11/05/2024 12:33 PM [facility] Blood Venous blood specimen / Unknown Venipuncture / Unknown 11/05/2024 6:51 AM EDT 11/05/2024 10:39 AM EDT us Eusebio Sprague MD LAB BLOOD ORDERABLES Final Resul t [facility] [address] [place] [address], * (ABNORMAL) Complete blood count (11/05/2024 6:51 AM EDT) [facility] WBC 5.3 4.8 - 10.8 K/mcL LAB HEMETOLOGY METHOD 11/05/2024 11:32 AM [facility] RBC 3.60(L) 3.80 - 4.80 M/mcL LAB HEMETOLOGY METHOD 11/05/2024 11:32 AM [facility] Hemoglobin 11.7 11.5 - 16.0 g/dL LAB HEMETOLOGY METHOD 11/05/2024 11:32 AM [facility] Hematocrit 35.8 35.0 - 47.0 % LAB HEMETOLOGY METHOD 11/05/2024 11:32 AM [facility] MCV 100.8(H) 79.0 - 98.0 FL LAB HEMETOLOGY METHOD 11/05/2024 11:32 AM [facility] MCH 33.0(H) 27.0 - 32.0 pcg LAB HEMETOLOGY METHOD 11/05/2024 11:32 AM [facility] MCHC 32.7 32.0 - 37.0 g/dL LAB HEMETOLOGY METHOD 11/05/2024 11:32 AM [facility] RDW 14.0 11.0 - 15.0 % LAB HEMETOLOGY METHOD 11/05/2024 11:32 AM [facility] Platelets 159 130 - 400 K/mcL LAB HEMETOLOGY METHOD 11/05/2024 11:32 AM [facility] MPV 10.3 7.0 - 11.0 FL LAB HEMETOLOGY METHOD 11/05/2024 11:32 AM [facility] NRBC 0.0 <1.0 % LAB HEMETOLOGY METHOD 11/05/2024 11:32 AM [facility] NRBC Absolute 0.00 <0.10 K/mcL LAB HEMETOLOGY METHOD 11/05/2024 11:32 AM EDT [facility] Blood Venous blood specimen / Unknown Venipuncture / Unknown 11/05/2024 6:51 AM EDT 11/05/2024 10:39 AM EDT us Eusebio Sprague MD LAB BLOOD ORDERABLES Final Resul t [facility] [address] [place] [address], documented in this encounter Visit Diagnoses Diagnosis Unspecified atrial fibrillation (CMS/HCC V24, CMS/HCC V28) Nontoxic single thyroid nodule Nontoxic uninodular goiter Essential (primary) hypertension Unspecified essential hypertension Heart failure, unspecified (CMS/HCC V24, CMS/HCC V28) Heart failure, unspecified Vitamin D deficiency, unspecified Diverticulum of bladder documented in this encounter Care Teams Evp Strategy Relationship Specialty Start Date End Date Eusebio Sprague MD [address] [place] [address] [address] [place] [address] PCP - General Geriatric Medicine 11/05/24 documented as of this encounter
--- OUTSIDE RECORDS SUMMARY | 2025-03-25 20:38 | XMS_ITS | Encounter Summary ---
Author Organization [employer] Address [address] [place] [address] Care Team Providers Care Corrugator Helper Name Role Phone Eusebio Sprague MD Primary Care Provider [phone] Encounter Details Date Type Department Care Team (Late st Contact Info) Description 11/29/[address] [facility] - Main Lab [address] [place] [address] Eusebio Sprague MD [address] [place], [place] [phone] Unspecified atrial fibrillation (CMS/HCC V24, CMS/HCC V28); [...] mmol/L LAB CHEMISTRY METHOD 12/01/2024 12:06 PM [facility] Potassium 4.7 3.5 - 5.5 mmol/L LAB CHEMISTRY METHOD 12/01/2024 12:06 PM [facility] Chloride 113(H) 96 - 110 mmol/L LAB CHEMISTRY METHOD 12/01/2024 12:06 PM [facility] CO2 25 21 - 32 mmol/L LAB CHEMISTRY METHOD 12/01/2024 12:06 PM [facility] Anion Gap 4 3 - 11 LAB CHEMISTRY METHOD 12/01/2024 12:06 PM [facility] Glucose 71 70 - 100 mg/dL LAB CHEMISTRY METHOD 12/01/2024 12:06 PM [facility] BUN 38(H) 5 - 25 mg/dL LAB CHEMISTRY METHOD 12/01/2024 12:06 PM [facility] Creatinine 1.61(H) 0.50 - 1.10 mg/dL LAB CHEMISTRY METHOD 12/01/2024 12:06 PM [facility] eGFR 31(L) >=60 mL/min/1. 73m2 LAB CHEMISTRY METHOD 12/01/2024 12:06 PM [facility] Comment:Calculation based on the Chronic Kidney Disease Epidemiology Collaboration (CKD-EPI) equation refit without adjustment for race. BUN/Creatinine Ratio 23.6 LAB CHEMISTRY METHOD 12/01/2024 12:06 PM [facility] Calcium 8.8 8.5 - 10.5 mg/dL LAB CHEMISTRY METHOD 12/01/2024 12:06 PM [facility] Blood Venous blood specimen / Unknown Venipuncture / Unknown 12/01/2024 6:20 AM EDT 12/01/2024 9:55 AM EDT us Eusebio Sprague MD LAB BLOOD ORDERABLES Final Resul t [facility] [address] [place] [address], * (ABNORMAL) Complete blood count (12/01/2024 6:20 AM EDT) WBC 4.6(L) 4.8 - 10.8 K/mcL LAB HEMETOLOGY METHOD 12/01/2024 11:[address] [facility] RBC 3.50(L) 3.80 - 4.80 M/mcL LAB HEMETOLOGY METHOD 12/01/2024 11:[address] [facility] Hemoglobin 10.9(L) 11.5 - 16.0 g/dL LAB HEMETOLOGY METHOD 12/01/2024 11:[address] [facility] Hematocrit 35.0 35.0 - 47.0 % LAB HEMETOLOGY METHOD 12/01/2024 11:[address] [facility] MCV 100.0(H) 79.0 - 98.0 FL LAB HEMETOLOGY METHOD 12/01/2024 11:[address] [facility] MCH 31.1 27.0 - 32.0 pcg LAB HEMETOLOGY METHOD 12/01/2024 11:[address] [facility] MCHC 31.1(L) 32.0 - 37.0 g/dL LAB HEMETOLOGY METHOD 12/01/2024 11:[address] [facility] RDW 14.2 11.0 - 15.0 % LAB HEMETOLOGY METHOD 12/01[facility]24 [facility] Platelets 173 130 - 400 K/mcL LAB HEMETOLOGY METHOD 12/01/2024 11:[address] [facility] MPV 9.7 7.0 - 11.0 FL LAB HEMETOLOGY METHOD 12/01/2024 11:[address] [facility] NRBC 0.0 <1.0 % LAB HEMETOLOGY METHOD 12/01/2024 11:[address] [facility] NRBC Absolute 0.00 <0.10 K/mcL LAB HEMETOLOGY METHOD 12/01/2024 11:[address] [facility] Blood Venous blood specimen / Unknown Venipuncture / Unknown 12/01/2024 6:20 AM EDT 12/01/2024 9:55 AM EDT Eusebio Sprague MD LAB BLOOD ORDERABLES Final Resul t Performing Organization Address [facility] Co de Phone Number [facility] [address] [place] [address], [place] [phone] * (ABNORMAL) Prothrombin time with INR (12/01/2024 6:20 AM EDT) Protime 19.3(H) 10.6 - 13.9 sec LAB COAGULATION METHOD 12/01/2024 11:[address] [facility] INR 1.5 LAB COAGULATION METHOD 12/01/2024 11:[address] [facility] Blood Venous blood specimen / Unknown Venipuncture / Unknown 12/01/2024 6:20 AM EDT 12/01/2024 9:55 AM EDT Eusebio Sprague MD LAB BLOOD ORDERABLES Final Resul t Performing Organization Address City/[facility]/ZIP Co de Phone Number [facility] [address] [place] [address], [place] [phone] documented in this encounter Visit Diagnoses Diagnosis Unspecified atrial fibrillation (CMS/HCC V24, CMS/HCC V28) Essential (primary) hypertension Unspecified essential hypertension documented in this encounter Care Teams Corrugator Helper Relationship Specialty Start Date End Date Eusebio Sprague MD [address] [place] [address] [address] [place] [address] PCP - General Geriatric Medicine 11/05/24 documented as of this encounter
--- OUTSIDE RECORDS SUMMARY | 2025-03-25 20:38 | XMS_ITS | Encounter Summary ---
Author Organization [email or web address] Address [address] [place] [address] Care Team Providers Care Mold Unloader Name Role Phone Eusebio Sprague MD Primary Care Provider [phone] Encounter Details Date Type Department Care Team (Late st Contact Info) Description 12/12/2024 Lab Requisition [facility] - Main Lab [address] [place] [address] Eusebio Sprague MD [address] [place], [place] [phone] Unspecified atrial fibrillation (CMS/HCC V24, CMS/HCC V28); [...] mmol/L LAB CHEMISTRY METHOD 12/16/2024 2:14 PM [facility] Potassium 4.7 3.5 - 5.5 mmol/L LAB CHEMISTRY METHOD 12/16/2024 2:14 PM [facility] Chloride 110 96 - 110 mmol/L LAB CHEMISTRY METHOD 12/16/2024 2:14 PM [facility] CO2 23 21 - 32 mmol/L LAB CHEMISTRY METHOD 12/16/2024 2:14 PM [facility] Anion Gap 8 3 - 11 LAB CHEMISTRY METHOD 12/16/2024 2:14 PM [facility] Glucose 80 70 - 100 mg/dL LAB CHEMISTRY METHOD 12/16/2024 2:14 PM [facility] BUN 38(H) 5 - 25 mg/dL LAB CHEMISTRY METHOD 12/16/2024 2:14 PM [facility] Creatinine 1.51(H) 0.50 - 1.10 mg/dL LAB CHEMISTRY METHOD 12/16/2024 2:14 PM [facility] eGFR 33(L) >=60 mL/min/1. 73m2 LAB CHEMISTRY METHOD 12/16/2024 2:14 PM [facility] Comment:Calculation based on the Chronic Kidney Disease Epidemiology Collaboration (CKD-EPI) equation refit without adjustment for race. BUN/Creatinine Ratio 25.2 LAB CHEMISTRY METHOD 12/16/2024 2:14 PM [facility] Calcium 8.7 8.5 - 10.5 mg/dL LAB CHEMISTRY METHOD 12/16/2024 2:14 PM [facility] Blood Venous blood specimen / Unknown Venipuncture / Unknown 12/16/2024 5:01 AM EDT 12/16/2024 11:06 AM EDT us Fahim A Celestine MD LAB BLOOD ORDERABLES Final Resul t [facility] [address] [place] [address], * (ABNORMAL) Complete blood count (12/16/2024 5:01 AM EDT) WBC 4.1(L) 4.8 - 10.8 K/mcL LAB HEMETOLOGY METHOD 12/16/2024 11:[address] [facility] RBC 3.60(L) 3.80 - 4.80 M/mcL LAB HEMETOLOGY METHOD 12/16[facility]24 11[facility] Hemoglobin 11.3(L) 11.5 - 16.0 g/dL LAB HEMETOLOGY METHOD 12/16/2024 11:52 AM [facility] Hematocrit 36.7 35.0 - 47.0 % LAB HEMETOLOGY METHOD 12/16/2024 11:52 AM [facility] MCV 100.8(H) 79.0 - 98.0 FL LAB HEMETOLOGY METHOD 12/16/2024 11:52 AM [facility] MCH 31.0 27.0 - 32.0 pcg LAB HEMETOLOGY METHOD 12/16/2024 11:[address] [facility] MCHC 30.8(L) 32.0 - 37.0 g/dL LAB HEMETOLOGY METHOD 12/16/2024 11:52 AM [facility] RDW 14.0 11.0 - 15.0 % LAB HEMETOLOGY METHOD 12/16/2024 11:52 AM [facility] Platelets 168 130 - 400 K/mcL LAB HEMETOLOGY METHOD 12/16/2024 11:[facility] MPV 9.8 7.0 - 11.0 FL LAB HEMETOLOGY METHOD 12/16/2024 11:[address] [facility] NRBC 0.0 <1.0 % LAB HEMETOLOGY METHOD 12/16/2024 11:[address] [facility] NRBC Absolute 0.00 <0.10 K/mcL LAB HEMETOLOGY METHOD 12/16/2024 11:[address] [facility] Blood Venous blood specimen / Unknown Venipuncture / Unknown 12/16/2024 5:01 AM EDT 12/16/2024 11:06 AM EDT Eusebio Sprague MD LAB BLOOD ORDERABLES Final Resul t Performing Organization Address City/[facility]/ZIP Co de Phone Number [facility] [address] [place] [address], [place] [phone] * (ABNORMAL) Prothrombin time with INR (12/16/2024 5:01 AM EDT) Protime 29.8(H) 10.6 - 13.9 sec LAB COAGULATION METHOD 12/16/2024 11:[address] [facility] INR 2.4 LAB COAGULATION METHOD 12/16/2024 11:[address] [facility] Blood Venous blood specimen / Unknown Venipuncture / Unknown 12/16/2024 5:01 AM EDT 12/16/2024 11:06 AM EDT Eusebio Sprauge MD LAB BLOOD ORDERABLES Final Resul t Performing Organization Address City/[facility]/ZIP Co de Phone Number [facility] [address] [place] [address], [place] [phone] documented in this encounter Visit Diagnoses Diagnosis Unspecified atrial fibrillation (CMS/HCC V24, CMS/HCC V28) Essential (primary) hypertension Unspecified essential hypertension documented in this encounter Care Teams Mold Unloader Relationship Specialty Start Date End Date Eusebio Sprague MD [address] [place] [address] [address] [place] [address] PCP - General Geriatric Medicine 11/05/24 documented as of this encounter
--- OUTSIDE RECORDS SUMMARY | 2025-03-25 20:39 | XMS_ITS | Encounter Summary ---
Author Organization [employer] Address [address] [place] [address] Care Team Providers Care Pediatric Assistant Name Role Phone Eusebio Sprague MD Primary Care Provider [phone] Encounter Details Date Type Department Care Team (Late st Contact Info) Description 11/08/2024 Lab Requisition [facility] - Main Lab [address] [place] [address] Eusebio Sprague MD [address] [place], [place] [phone] Unspecified atrial fibrillation (CMS/HCC V24, CMS/HCC V28); [...] (CMS/HCC V24, CMS/HCC V28) Heart failure, unspecified ([facility] V24, [facility] V28) documented in this encounter Results * (ABNORMAL) Basic metabolic panel (11/10/2024 6:08 AM EDT) Sodium 139 133 - 145 mmol/L LAB CHEMISTRY METHOD 11/10/2024 1:25 PM [facility] Potassium 4.6 3.5 - 5.5 mmol/L LAB CHEMISTRY METHOD 11/10/2024 1:25 PM [facility] Chloride 111(H) 96 - 110 mmol/L LAB CHEMISTRY METHOD 11/10/2024 1:25 PM [facility] CO2 22 21 - 32 mmol/L LAB CHEMISTRY METHOD 11/10/2024 1:25 PM [facility] Anion Gap 6 3 - 11 LAB CHEMISTRY METHOD 11/10/2024 1:25 PM [facility] Glucose 64(L) 70 - 100 mg/dL LAB CHEMISTRY METHOD 11/10/2024 1:25 PM [facility] BUN 44(H) 5 - 25 mg/dL LAB CHEMISTRY METHOD 11/10/2024 1:25 PM [facility] Creatinine 1.53(H) 0.50 - 1.10 mg/dL LAB CHEMISTRY METHOD 11/10/2024 1:25 PM [facility] eGFR 33(L) >=60 mL/min/1. 73m2 LAB CHEMISTRY METHOD 11/10/2024 1:25 PM [facility] Comment:Calculation based on the Chronic Kidney Disease Epidemiology Collaboration (CKD-EPI) equation refit without adjustment for race. BUN/Creatinine Ratio 28.8 LAB CHEMISTRY METHOD 11/10/2024 1:25 PM [facility] Calcium 8.2(L) 8.5 - 10.5 mg/dL LAB CHEMISTRY METHOD 11/10/2024 1:25 PM [facility] Blood Venous blood specimen / Unknown Venipuncture / Unknown 11/10/2024 6:08 AM EDT 11/10/2024 11:46 AM EDT Eusebio Sprague MD LAB BLOOD ORDERABLES Final Resul t [facility] [address] [place] [address], * (ABNORMAL) Complete blood count (11/10/2024 6:08 AM EDT) WBC 6.8 4.8 - 10.8 K/mcL LAB HEMETOLOGY METHOD 11/10/2024 1:[address] [facility] RBC 3.40(L) 3.80 - 4.80 M/mcL LAB HEMETOLOGY METHOD 11/10/2024 1:[address] [facility] Hemoglobin 11.0(L) 11.5 - 16.0 g/dL LAB HEMETOLOGY METHOD 11/10/2024 1:[address] [facility] Hematocrit 34.4(L) 35.0 - 47.0 % LAB HEMETOLOGY METHOD 11/10/2024 1:[address] [facility] MCV 100.6(H) 79.0 - 98.0 FL LAB HEMETOLOGY METHOD 11/10/2024 1:[address] [facility] MCH 32.2(H) 27.0 - 32.0 pcg LAB HEMETOLOGY METHOD 11/10/2024 1:[address] [facility] MCHC 32.0 32.0 - 37.0 g/dL LAB HEMETOLOGY METHOD 11/10/2024 1:[address] [facility] RDW 14.5 11.0 - 15.0 % LAB HEMETOLOGY METHOD 11/10/2024 1:[address] [facility] Platelets 160 130 - 400 K/mcL LAB HEMETOLOGY METHOD 11/10/2024 1:[address] [facility] MPV 10.1 7.0 - 11.0 FL LAB HEMETOLOGY METHOD 11/10/2024 1:[address] [facility] NRBC 0.0 <1.0 % LAB HEMETOLOGY METHOD 11/10/2024 1:[address] [facility] NRBC Absolute 0.00 <0.10 K/mcL LAB HEMETOLOGY METHOD 11/10/2024 1:[address] [facility] Blood Venous blood specimen / Unknown Venipuncture / Unknown 11/10/2024 6:08 AM EDT 11/10/2024 11:46 AM EDT us Eusebio Sprague MD LAB BLOOD ORDERABLES Final Resul t [facility] [address] [place] [address], [place] [phone] * (ABNORMAL) Prothrombin time with INR (11/10/2024 6:08 AM EDT) Protime 33.8(H) 10.6 - 13.9 sec LAB COAGULATION METHOD 11/10/2024 12:[address] [facility] INR 2.7 LAB COAGULATION METHOD 11/10/2024 12:[address] [facility] Blood Venous blood specimen / Unknown Venipuncture / Unknown 11/10/2024 6:08 AM EDT 11/10/2024 11:46 AM EDT us Eusebio Sprague MD LAB BLOOD ORDERABLES Final Resul t [facility] [address] [place], [place] [address] [phone] documented in this encounter Visit Diagnoses Diagnosis Unspecified atrial fibrillation ([facility] V24, CMS/HCC V28) Heart failure, unspecified (CMS/[facility] V24, CMS/[facility] V28) Heart failure, unspecified documented in this encounter Care Teams Pediatric Assistant Relationship Specialty Start Date End Date Eusebio Sprague MD [address] [place] [address] [address] [place] [address] PCP - General Geriatric Medicine 11/05/24 documented as of this encounter
--- OUTSIDE RECORDS SUMMARY | 2025-03-25 20:39 | XMS_ITS | Encounter Summary ---
Author Organization [employer] Address [address] [place] [address] Care Team Providers Care Manager Neonatal Name Role Phone Eusebio Sprague MD Primary Care Provider [phone] Encounter Details Date Type Department Care Team (Late st Contact Info) Description 12/03/2024 Lab Requisition [facility] - Main Lab 299 [facility] [place] [address] uEsebio Sprague MD [address] [place], [place] [id number] Unspecified atrial fibrillation (CMS/HCC V24, CMS/HCC V28) [...] sec LAB COAGULATION METHOD 12/04/2024 9:04 AM [facility] INR 2.4 LAB COAGULATION METHOD 12/04/2024 9:04 AM [facility] Blood Venous blood specimen / Unknown Venipuncture / Unknown 12/04/2024 6:47 AM EDT 12/04/2024 8:37 AM EDT Eusebio Sprague MD LAB BLOOD ORDERABLES Final Resul t [facility] ([facility]) [facility] LAB [address] [place] [address], documented in this encounter Visit Diagnoses Diagnosis Unspecified atrial fibrillation (CMS/HCC V24, CMS/HCC V28) documented in this encounter Care Teams Manager Neonatal Relationship Specialty Start Date End Date Eusebio Sprague MD [address] [place] [address] [address] [place] [address] PCP - General Geriatric Medicine 11/05/24 documented as of this encounter
--- OUTSIDE RECORDS SUMMARY | 2025-03-25 20:39 | XMS_ITS | Encounter Summary ---
Author Organization [employer] Address [address] [place] [address] Care Team Providers Care Human Services Assistant Name Role Phone Eusebio Sprague MD Primary Care Provider [phone] Encounter Details Date Type Department Care Team (Late st Contact Info) Description 11/05/2024 Lab Requisition [facility] - Main Lab 299 [facility] [place] [address] Eusebio Sprague MD [address] [place], [place] [phone] Unspecified atrial fibrillation (CMS/HCC V24, CMS/HCC V28) [...] LAB BLOOD ORDERABLES Final Resul t [facility] ([facility]) [facility] [address] [place] [address], documented in this encounter Visit Diagnoses Diagnosis Unspecified atrial fibrillation (CMS/HCC V24, CMS/HCC V28) documented in this encounter Care Teams Human Services Assistant Relationship Specialty Start Date End Date Eusebio Sprague MD [address] [place] [address] [address] [place] [address] PCP - General Geriatric Medicine 11/05/24 documented as of this encounter
--- OUTSIDE RECORDS SUMMARY | 2025-03-25 20:39 | XMS_ITS | Encounter Summary ---
Author Organization [employer] Address [address] [place] [address] Care Team Providers Care Capsule Machine Operator Name Role Phone Eusebio Sprague MD Primary Care Provider [phone] Encounter Details Date Type Department Care Team (Late st Contact Info) Description 11/24/2024 Lab Requisition [facility] - Main Lab [address] [facility] [place] [address] Reena Salmon PA [address] [facility] [place] [address] Heart failure, unspecified (CMS/HCC V24, CMS/HCC V28); [...] sec LAB COAGULATION METHOD 11/24/2024 10:32 AM [facility] LAB INR 2.0 LAB COAGULATION METHOD 11/24/2024 10:32 AM [facility] Blood Venous blood specimen / Unknown Venipuncture / Unknown 11/24/2024 6:19 AM EDT 11/24/2024 10:10 AM EDT us Reena FOSTER LAB BLOOD ORDERABLES Final Resu lt Performing Organization Address City/[facility]/ZIP Co de Phone Number [facility] LAB [address] [place] [address], [place] [phone] * Magnesium (11/24/2024 6:19 AM EDT) Pathologist [facility] Magnesium 2.4 1.9 - 2.6 mg/dL LAB CHEMISTRY METHOD 11/24/2024 11:02 AM EDT [facility] Blood Venous blood specimen / Unknown Venipuncture / Unknown 11/24/2024 6:19 AM EDT 11/24/2024 10:10 AM EDT us Reena FOSTER LAB BLOOD ORDERABLES Final Resu lt Performing Organization Address [facility]/ZIP Co de Phone Number [facility] [address] [place] [address], [place] [phone] * (ABNORMAL) Vitamin D 25 hydroxy (11/24/2024 6:19 AM EDT) [facility] Vit D, 25-Hydroxy 29.0(L) 30.0 - 80.0 ng/mL LAB CHEMISTRY METHOD 11/24/2024 11:59 AM EDT [facility] Blood Venous blood specimen / Unknown Venipuncture / Unknown 11/24/2024 6:19 AM EDT 11/24/2024 10:10 AM EDT us Reena FOSTER LAB BLOOD ORDERABLES Final Resu lt Performing Organization Address City/[facility]/ZIP Co de Phone Number [facility] [address] [place] [address], [place] [phone] * (ABNORMAL) Thyroid stimulating hormone (11/24/2024 6:19 AM EDT) [facility] TSH 4.43(H) 0.40 - 4.00 mcIU/mL LAB CHEMISTRY METHOD 11/24/2024 11:59 AM EDT [facility] Blood Venous blood specimen / Unknown Venipuncture / Unknown 11/24/2024 6:19 AM EDT 11/24/2024 10:10 AM EDT us Reena FOSTER LAB BLOOD ORDERABLES Final Resu lt Performing Organization Address [facility]/ZIP Co de Phone Number [facility] [address] [place] [address], [place] [phone] * Vitamin B12 and folate (11/24/2024 6:19 AM EDT) [facility] Vitamin B-12 470 250 - 900 [...] ORDERABLES Final Resu lt Performing Organization Address City/[facility]/ZIP Co de Phone Number [facility] [address] [place] [address], [place] [phone] * (ABNORMAL) Comprehensive metabolic panel (11/24/2024 6:19 AM EDT) [facility] Sodium 139 133 - 145 mmol/L LAB CHEMISTRY METHOD 11/24/2024 11:28 AM EDT [facility] Potassium 5.1 3.5 - 5.5 mmol/L LAB CHEMISTRY METHOD 11/24/2024 11:28 AM EDT [facility] Chloride 108 96 - 110 mmol/L LAB CHEMISTRY METHOD 11/24/2024 11:28 AM [facility] CO2 25 21 - 32 mmol/L LAB CHEMISTRY METHOD 11/24/2024 11:28 AM [facility] Anion Gap 6 3 - 11 LAB CHEMISTRY METHOD 11/24/2024 11:28 AM [facility] Glucose 66(L) 70 - 100 mg/dL LAB CHEMISTRY METHOD 11/24/2024 11:28 AM [facility] BUN 45(H) 5 - 25 mg/dL LAB CHEMISTRY METHOD 11/24/2024 11:28 AM [facility] Creatinine 1.48(H) 0.50 - 1.10 mg/dL LAB CHEMISTRY METHOD 11/24/2024 11:28 AM [facility] eGFR 34(L) >=60 mL/min/1. 73m2 LAB CHEMISTRY METHOD 11/24/2024 11:28 AM [facility] Comment:Calculation based on the Chronic Kidney Disease Epidemiology Collaboration (CKD-EPI) equation refit without adjustment for race. BUN/Creatinine Ratio 30.4 LAB CHEMISTRY METHOD 11/24/2024 11:28 AM [facility] Calcium 8.1(L) 8.5 - 10.5 mg/dL LAB CHEMISTRY METHOD 11/24/2024 11:28 AM [facility] AST (SGOT) 51(H) 10 - 42 unit/L LAB CHEMISTRY METHOD 11/24/2024 11:28 AM [facility] ALT (SGPT) 58 10 - 60 unit/L LAB CHEMISTRY METHOD 11/24/2024 11:28 AM [facility] Alkaline Phosphatase 119 42 - 121 unit/L LAB CHEMISTRY METHOD 11/24/2024 11:28 AM [facility] Total Protein 4.8(L) 6.0 - 8.0 g/dL LAB CHEMISTRY METHOD 11/24/2024 11:28 AM EDT [facility] Albumin 2.3(L) 3.2 - 5.0 g/dL LAB CHEMISTRY METHOD 11/24/2024 11:28 AM EDT [facility] Total Bilirubin 0.3 0.0 - 1.4 mg/dL LAB CHEMISTRY METHOD 11/24/2024 11:28 AM T [facility] Blood Venous blood specimen / Unknown Venipuncture / Unknown 11/24/2024 6:19 AM EDT 11/24/2024 10:10 AM EDT us Reena FOSTER LAB BLOOD ORDERABLES Final Resu lt [facility] [address] [place] [address], [place] [phone] * (ABNORMAL) Complete blood count (11/24/2024 6:19 AM EDT) WBC 6.4 4.8 - 10.8 K/mcL LAB HEMETOLOGY METHOD 11/24/2024 10:32 AM [facility] RBC 3.30(L) 3.80 - 4.80 M/mcL LAB HEMETOLOGY METHOD 11/24/2024 10:32 AM [facility] Hemoglobin 10.6(L) 11.5 - 16.0 g/dL LAB HEMETOLOGY METHOD 11/24/2024 10:32 AM T [facility] Hematocrit 33.6(L) 35.0 - 47.0 % LAB HEMETOLOGY METHOD 11/24/2024 10:32 AM [facility] MCV 100.9(H) 79.0 - 98.0 FL LAB HEMETOLOGY METHOD 11/24/2024 10:32 AM [facility] MCH 31.8 27.0 - 32.0 pcg LAB HEMETOLOGY METHOD 11/24/2024 10:32 AM EDT [facility] MCHC 31.5(L) 32.0 - 37.0 g/dL LAB HEMETOLOGY METHOD 11/24/2024 10:32 AM EDT [facility] RDW 13.9 11.0 - 15.0 % LAB HEMETOLOGY METHOD 11/24/2024 10:32 AM EDT [facility] Platelets 223 130 - 400 K/mcL LAB HEMETOLOGY METHOD 11/24/2024 10:32 AM EDT [facility] MPV 10.0 7.0 - 11.0 FL LAB HEMETOLOGY METHOD 11/24/2024 10:32 AM EDT [facility] NRBC 0.0 <1.0 % LAB HEMETOLOGY METHOD 11/24/2024 10:32 AM EDT [facility] NRBC Absolute 0.00 <0.10 K/mcL LAB HEMETOLOGY METHOD 11/24/2024 10:32 AM EDT [facility] Blood Venous blood specimen / Unknown Venipuncture / Unknown 11/24/2024 6:19 AM EDT 11/24/2024 10:10 AM EDT us Reena FOSTER LAB BLOOD ORDERABLES Final Resu lt [facility] [address] [place] [address], documented in this encounter Visit Diagnoses Diagnosis Heart failure, unspecified (CMS/HCC V24, CMS/HCC V28) Heart failure, unspecified Vitamin D deficiency, unspecified Hypothyroidism, unspecified Unspecified atrial fibrillation (CMS/HCC V24, CMS/HCC V28) documented in this encounter Care Teams Capsule Machine Operator Relationship Specialty Start Date End Date Eusebio Sprague MD [address] [place], [place] [id number] [place] [address] PCP - General Geriatric Medicine 11/05/24 documented as of this encounter
--- OUTSIDE RECORDS SUMMARY | 2025-03-25 20:39 | XMS_ITS | Encounter Summary ---
Author Organization [employer] Address [address] [place] [address] Care Team Providers Care Gear Nicker Name Role Phone Eusebio Sprague MD Primary Care Provider [phone] Encounter Details Date Type Department Care Team (Late st Contact Info) Description 12/11/2024 Lab Requisition [facility] - Main Lab 299 [facility] [place] [address] Eusebio Sprague MD [address] [place], [place] [id number] Frequency of micturition Social History Tobacco Use [...] reflex microscopic (12/10/2024 4:30 AM EDT) Specific [place] Urine 1.014 1.003 - 1.030 LAB URINALYSIS - AUTOMATED METHOD 12/11/2024 10:24 AM EDT [facility] pH, Urine 5.5 5.0 - 8.0 pH LAB URINALYSIS - AUTOMATED METHOD 12/11/2024 10:24 AM [facility] Leukocytes, Urine Large(A) Negative LAB URINALYSIS - AUTOMATED METHOD 12/11/2024 10:24 AM [facility] Nitrite, Urine Negative Negative LAB URINALYSIS - AUTOMATED METHOD 12/11/2024 10:24 AM [facility] Protein, Urine Trace <=Trace mg/dL LAB URINALYSIS - AUTOMATED METHOD 12/11/2024 10:24 AM [facility] Glucose, Urine Negative Negative mg/dL LAB URINALYSIS - AUTOMATED METHOD 12/11/2024 10:24 AM [facility] Ketones, Urine Negative Negative mg/dL LAB URINALYSIS - AUTOMATED METHOD 12/11/2024 10:24 AM [facility] Urobilinogen, Urine 0.2 0.2 - 1.0 mg/dL LAB URINALYSIS - AUTOMATED METHOD 12/11/2024 10:24 AM [facility] Bilirubin, Urine Negative Negative LAB URINALYSIS - AUTOMATED METHOD 12/11/2024 10:24 AM [facility] Blood, Urine Small(A) Negative LAB URINALYSIS - AUTOMATED METHOD 12/11/2024 10:24 AM [facility] RBC, Urine 7.1(H) 0 - 4 /HPF LAB URINALYSIS - AUTOMATED METHOD 12/11/2024 10:24 AM [facility] WBC, Urine 990.7(H) 0 - 4 /HPF LAB URINALYSIS - AUTOMATED METHOD 12/11/2024 10:24 AM [facility] Squamous Epithelial, Urine 41 0 - 60 /LPF LAB URINALYSIS - AUTOMATED METHOD 12/11/2024 10:24 AM [facility] Bacteria, Urine Many(A) Negative /HPF LAB URINALYSIS - AUTOMATED METHOD 12/11/2024 10:24 AM EDT [facility] Hyaline Casts, Urine 2.4 0 - 3 /LPF LAB URINALYSIS - AUTOMATED METHOD 12/11/2024 10:24 AM EDT [facility] Urine Urine specimen obtained by clean catch procedure / Unknown 12/10/2024 4:30 AM EDT 12/11/2024 9:17 AM EDT us Eusebio Sprague MD LAB URINE ORDERABLES Final Resul t [facility] [address] [place] [address], * (ABNORMAL) Culture urine (12/10/2024 4:30 AM EDT) Culture, Urine >=100,000 CFU/mL Enterococcus faecium(A) RAMA 12/14/2024 8:27 AM EDT [facility] Comment: Edited result: Previously reported as Gram Positive Cocci on 12/12/2024 at 1105 EDT. Culture, Urine 10,000-49,000 CFU/mL Enterococcus faecalis(A) RAMA 12/14/2024 8:27 AM EDT [facility] Comment: The organism value for this result has been updated. These results have been appended to the previously preliminary verified report. Urine Urine specimen obtained by clean catch procedure / Unknown 12/10/2024 4:30 AM EDT 12/11/2024 9:17 AM EDT Narrative [facility] - 12/14/2024 8:27 AM EDT [...] MICROBIOLOGY - GENERAL ORDER GONZALEZ Final Result [facility] ([facility]) [facility] [address] [place] [address], documented in this encounter Visit Diagnoses Diagnosis Frequency of micturition Urinary frequency documented in this encounter Care Teams Gear Nicker Relationship Specialty Start Date End Date Eusebio Sprague MD [address] [place] [address] [address] [place] [address] PCP - General Geriatric Medicine 11/05/24 documented as of this encounter
--- OUTSIDE RECORDS SUMMARY | 2025-03-25 20:40 | XMS_ITS | Encounter Summary ---
Author Organization [employer] Address [address] [place] [address] Care Team Providers Care Psychometric Examiner Name Role Phone Eusebio Sprague MD Primary Care Provider [phone] Encounter Details Date Type Department Care Team (Late st Contact Info) Description 11/12/2024 Lab Requisition [facility] - Main Lab 299 [facility] [place] [address] Eusebio Sprague MD [address] [place], [place] [phone] Unspecified atrial fibrillation (CMS/HCC V24, CMS/HCC V28) [...] V28) documented in this encounter Care Teams Psychometric Examiner Relationship Specialty Start Date End Date Eusebio Sprague MD [address] [place], [place] [phone] PCP - General Geriatric Medicine 11/05/24 documented as of this encounter
--- OUTSIDE RECORDS SUMMARY | 2025-03-25 20:40 | XMS_ITS | Encounter Summary ---
Author Organization [email or web address] Address [address] [place] [address] Care Team Providers Care It Network Architect Name Role Phone Eusebio Sprague MD Primary Care Provider [phone] Encounter Details Date Type Department Care Team (Late st Contact Info) Description 11/26/2024 Lab Requisition [facility] - Main Lab 299 [facility] [place] [address] Eusebio Sprague MD [address] [place], [place] [phone] Unspecified atrial fibrillation (CMS/HCC V24, CMS/HCC V28) [...] sec LAB COAGULATION METHOD 11/27/2024 8:56 AM [facility] INR 2.0 LAB COAGULATION METHOD 11/27/2024 8:56 AM [facility] Blood Venous blood specimen / Unknown Venipuncture / Unknown 11/27/2024 6:40 AM EDT 11/27/2024 8:33 AM EDT Eusebio Sprague MD LAB BLOOD ORDERABLES Final Resul t [facility] ([facility]) [facility] [address] [place] [address], documented in this encounter Visit Diagnoses Diagnosis Unspecified atrial fibrillation (CMS/HCC V24, CMS/HCC V28) documented in this encounter Care Teams It Network Architect Relationship Specialty Start Date End Date Eusebio Sprague MD [address] [place] [address] [address] [place] [address] PCP - General Geriatric Medicine 11/05/24 documented as of this encounter
== END 2025-03-25 13:15 | disposition home or self-care (01) ==
LOC: HO.MAMMO 13:14
PROVIDERS: PCP Physician Assistant; Visit Provider Physician Assistant
DX: Z12.31 Encounter for screening mammogram for malignant neoplasm of breast (principal); Z90.12 Acquired absence of left breast and nipple
CPT/HCPCS: 77063; 77067

== ENCOUNTER → 2025-03-25 13:17 | Outpatient (BNV) | payer MEDICARE, SELFPAY | PROVIDERS: PCP Physician Assistant; Visit Provider Internal Medicine | DX: Z12.31 Encounter for screening mammogram for malignant neoplasm of breast (principal) | CPT/HCPCS: 77063; 77067 ==

== ENCOUNTER 2025-03-31 10:07 | Outpatient (AMB) | payer MEDICARE, SELFPAY ==
[2025-03-31 10:21] LABS: Prothrombin Time Whole Bld POC 36.4 sec (11.1-13.5); ~PT, ~INR - Anti Coag Clinic 3.0 (0.9-1.1)
--- NOTE | 2025-03-31 10:28 | MHC.OFFVISCO ---
Intake Intake Visit Reasons: Anticoagulation Allergies No Known Allergies (No Known Allergies*) Allergy (Verified 03/31/25 10:13) Medication List - Last Reconciled 03/31/25 by Erika Lloyd, FELIPE acetaminophen 1,000 mg PO Q6H PRN amiodarone 100 mg (1/2 x 200 mg) PO DAILY 90 days atorvastatin 20 mg PO DAILY calcium carbonate (Calcium 600) 600 mg PO DAILY comp.stocking,knee,long,medium Need for 15-20 mmHg compression metoprolol succinate ER 50 mg PO DAILY 90 days omeprazole 20 mg PO DAILY PRN raloxifene 60 mg PO DAILY walker (Ultra-Light Rollator misc) As directed warfarin 2 mg See Protocol PO 6XW Nursing Note Pt to ACS accompanied by dght in law INR: 3.0 in therapeutic range of 2-3 Medications and supplements reviewed No changes in health, diet, medications, or supplements, Denies any signs and symptoms of bleeding or bruising or clotting. Bleeding, bruising, clotting discussed Nutritional guidance given to have a serving of greens today Dose: 3mg X 6 days and 2 mg X 1 day (Sun) F/U INR: 4 weeks Patient and dght in law verbalizes understanding of instructions given Anti-Coag Initial Assessment Social Hx Patient Tobacco Use Status: Never used Tobacco alcohol intake: never Coding Level of Care Code Est Patient Level 1 Diagnoses Current use of anticoagulant therapy Z79.01 Assessment & Plan Assessment & Plan (1) Current use of anticoagulant therapy: Code(s): Z79.01 - group home (current) use of anticoagulants Category: Medical
--- OUTSIDE RECORDS SUMMARY | 2025-03-31 12:28 | XMS_ITS | Encounter Summary ---
Author Organization [employer] Address [address] [place] [address] Care Team Providers Care Car Mover Name Role Phone Eusebio Sprague MD Primary Care Provider [phone] Encounter Details Date Type Department Care Team (Late st Contact Info) Description 11/12/2024 Lab Requisition [facility] - Main Lab 299 [facility] [place] [address] Eusebio Sprague MD [address] [place], [place] [phone] Unspecified atrial fibrillation (CMS/HCC V24, CMS/HCC V28) [...] documented in this encounter Care Teams Car Mover Relationship Specialty Start Date End Date Eusebio Sprague MD [address] [place], [place] [phone] PCP - General Geriatric Medicine 11/05/24 documented as of this encounter
--- OUTSIDE RECORDS SUMMARY | 2025-03-31 12:28 | XMS_ITS | Encounter Summary ---
Author Organization [employer] Address [address] [place] [address] Care Team Providers Care Platemaker Name Role Phone Eusebio Sprague MD Primary Care Provider [phone] Encounter Details Date Type Department Care Team (Late st Contact Info) Description 11/24/[address] [facility] - Main Lab [address] [place] [address] Reena Salmon PA [address] [facility] [place] [address] Heart failure, unspecified (CMS/HCC V24, CMS/HCC V28); [...] sec LAB COAGULATION METHOD 11/24/2024 10:32 AM [facility] INR 2.0 LAB COAGULATION METHOD 11/24/2024 10:32 AM [facility] Blood Venous blood specimen / Unknown Venipuncture / Unknown 11/24/2024 6:19 AM EDT 11/24/2024 10:10 AM EDT us Reena FOSTER LAB BLOOD ORDERABLES Final Resu lt Performing Organization Address City/[facility]/ZIP Co de Phone Number [facility] [address] [place] [address], [place] [phone] * Magnesium (11/24/2024 6:19 AM EDT) Pathologist [facility] Magnesium 2.4 1.9 - 2.6 mg/dL LAB CHEMISTRY METHOD 11/24/2024 11:02 AM EDT [facility] Blood Venous blood specimen / Unknown Venipuncture / Unknown 11/24/2024 6:19 AM EDT 11/24/2024 10:10 AM EDT us Reena FOSTER LAB BLOOD ORDERABLES Final Resu lt Performing Organization Address [facility]/ZIP Co de Phone Number [facility] [address] [place] [address], [place] [phone] * (ABNORMAL) Vitamin D 25 hydroxy (11/24/2024 6:19 AM EDT) [facility] Vit D, 25-Hydroxy 29.0(L) 30.0 - 80.0 ng/mL LAB CHEMISTRY METHOD 11/24/2024 11:59 AM EDT [facility] Blood Venous blood specimen / Unknown Venipuncture / Unknown 11/24/2024 6:19 AM EDT 11/24/2024 10:10 AM EDT us Reena FOSTER LAB BLOOD ORDERABLES Final Resu lt Performing Organization Address City/[facility]/ZIP Co de Phone Number [facility] [address] [place] [address], [place] [phone] * (ABNORMAL) Thyroid stimulating hormone (11/24/2024 6:19 AM EDT) [facility] TSH 4.43(H) 0.40 - 4.00 mcIU/mL LAB CHEMISTRY METHOD 11/24/2024 11:59 AM EDT [facility] Blood Venous blood specimen / Unknown Venipuncture / Unknown 11/24/2024 6:19 AM EDT 11/24/2024 10:10 AM EDT us Reena FOSTER LAB BLOOD ORDERABLES Final Resu lt Performing Organization Address [facility]/ZIP Co de Phone Number [facility] [address] [place] [address], [place] [phone] * Vitamin B12 and folate (11/24/2024 6:19 AM EDT) [facility] Vitamin B-12 470 250 - 900 pcg/mL LAB CHEMISTRY METHOD 11/24/2024 11:28 AM EDT [facility] Folate 6.3 2.8 - 17.0 ng/ml LAB CHEMISTRY METHOD 11/24/2024 11:28 AM EDT [facility] Blood Venous blood specimen / Unknown Venipuncture / Unknown 11/24/2024 6:19 AM EDT 11/24/2024 10:10 AM EDT us Reena FOSTER LAB BLOOD ORDERABLES Final Resu lt Performing Organization Address City/[facility]/ZIP Co de Phone Number [facility] [address] [place] [address], [place] [phone] * (ABNORMAL) Comprehensive metabolic panel (11/24/2024 6:19 AM EDT) [facility] Sodium 139 133 - 145 mmol/L LAB CHEMISTRY METHOD 11/24/2024 11:28 AM EDT [facility] Potassium 5.1 3.5 - 5.5 mmol/L LAB CHEMISTRY METHOD 11/24/2024 11:28 AM EDT [facility] Chloride 108 96 - 110 mmol/L LAB CHEMISTRY METHOD 11/24/2024 11:28 AM [facility] CO2 25 21 - 32 mmol/L LAB CHEMISTRY METHOD 11/24/2024 11:28 AM [facility] Anion Gap 6 3 - 11 LAB CHEMISTRY METHOD 11/24/2024 11:28 AM [facility] Glucose 66(L) 70 - 100 mg/dL LAB CHEMISTRY METHOD 11/24/2024 11:28 AM [facility] BUN 45(H) 5 - 25 mg/dL LAB CHEMISTRY METHOD 11/24/2024 11:28 AM [facility] Creatinine 1.48(H) 0.50 - 1.10 mg/dL LAB CHEMISTRY METHOD 11/24/2024 11:28 AM [facility] eGFR 34(L) >=60 mL/min/1. 73m2 LAB CHEMISTRY METHOD 11/24/2024 11:28 AM [facility] Comment:Calculation based on the Chronic Kidney Disease Epidemiology Collaboration (CKD-EPI) equation refit without adjustment for race. BUN/Creatinine Ratio 30.4 LAB CHEMISTRY METHOD 11/24/2024 11:28 AM [facility] Calcium 8.1(L) 8.5 - 10.5 mg/dL LAB CHEMISTRY METHOD 11/24/2024 11:28 AM [facility] AST (SGOT) 51(H) 10 - 42 unit/L LAB CHEMISTRY METHOD 11/24/2024 11:28 AM [facility] ALT (SGPT) 58 10 - 60 unit/L LAB CHEMISTRY METHOD 11/24/2024 11:28 AM [facility] Alkaline Phosphatase 119 42 - 121 unit/L LAB CHEMISTRY METHOD 11/24/2024 11:28 AM [facility] Total Protein 4.8(L) 6.0 - 8.0 g/dL LAB CHEMISTRY METHOD 11/24/2024 11:28 AM EDT [facility] Albumin 2.3(L) 3.2 - 5.0 g/dL LAB CHEMISTRY METHOD 11/24/2024 11:28 AM EDT [facility] Total Bilirubin 0.3 0.0 - 1.4 mg/dL LAB CHEMISTRY METHOD 11/24/2024 11:28 AM T [facility] Blood Venous blood specimen / Unknown Venipuncture / Unknown 11/24/2024 6:19 AM EDT 11/24/2024 10:10 AM EDT us Reena FOSTER LAB BLOOD ORDERABLES Final Resu lt [facility] [address] [place] [address], [place] [phone] * (ABNORMAL) Complete blood count (11/24/2024 6:19 AM EDT) WBC 6.4 4.8 - 10.8 K/mcL LAB HEMETOLOGY METHOD 11/24/2024 10:32 AM [facility] RBC 3.30(L) 3.80 - 4.80 M/mcL LAB HEMETOLOGY METHOD 11/24/2024 10:32 AM [facility] Hemoglobin 10.6(L) 11.5 - 16.0 g/dL LAB HEMETOLOGY METHOD 11/24/2024 10:32 AM T [facility] Hematocrit 33.6(L) 35.0 - 47.0 % LAB HEMETOLOGY METHOD 11/24/2024 10:32 AM [facility] MCV 100.9(H) 79.0 - 98.0 FL LAB HEMETOLOGY METHOD 11/24/2024 10:32 AM [facility] MCH 31.8 27.0 - 32.0 pcg LAB HEMETOLOGY METHOD 11/24/2024 10:32 AM EDT [facility] MCHC 31.5(L) 32.0 - 37.0 g/dL LAB HEMETOLOGY METHOD 11/24/2024 10:32 AM EDT [facility] RDW 13.9 11.0 - 15.0 % LAB HEMETOLOGY METHOD 11/24/2024 10:32 AM EDT [facility] Platelets 223 130 - 400 K/mcL LAB HEMETOLOGY METHOD 11/24/2024 10:32 AM EDT [facility] MPV 10.0 7.0 - 11.0 FL LAB HEMETOLOGY METHOD 11/24/2024 10:32 AM EDT [facility] NRBC 0.0 <1.0 % LAB HEMETOLOGY METHOD 11/24/2024 10:32 AM EDT [facility] NRBC Absolute 0.00 <0.10 K/mcL LAB HEMETOLOGY METHOD 11/24/2024 10:32 AM EDT [facility] Blood Venous blood specimen / Unknown Venipuncture / Unknown 11/24/2024 6:19 AM EDT 11/24/2024 10:10 AM EDT us Reena FOSTER LAB BLOOD ORDERABLES Final Resu lt [facility] [address] [place] [address], documented in this encounter Visit Diagnoses Diagnosis Heart failure, unspecified (CMS/HCC V24, CMS/HCC V28) Heart failure, unspecified Vitamin D deficiency, unspecified Hypothyroidism, unspecified Unspecified atrial fibrillation (CMS/HCC V24, CMS/HCC V28) documented in this encounter Care Teams Platemaker Relationship Specialty Start Date End Date Eusebio Sprague MD [address] [place], [place] [id number] [place] [address] PCP - General Geriatric Medicine 11/05/24 documented as of this encounter
--- OUTSIDE RECORDS SUMMARY | 2025-03-31 12:28 | XMS_ITS | Encounter Summary ---
Author Organization [employer] Address [address] [place] [address] Care Team Providers Care Necktie Stitcher Name Role Phone Eusebio Sprague MD Primary Care Provider [phone] Encounter Details Date Type Department Care Team (Late st Contact Info) Description 11/05/2024 Lab Requisition [facility] - Main Lab [address] [place] [address] Eusebio Sprague MD [address] [place], [place] [id number] Unspecified atrial fibrillation (CMS/HCC V24, CMS/HCC V28); [...] Results * Magnesium (11/05/2024 6:51 AM EDT) [facility] Magnesium 2.5 1.9 - 2.6 mg/dL LAB CHEMISTRY METHOD 11/05/2024 12:06 PM EDT [facility] Blood Venous blood specimen / Unknown Venipuncture / Unknown 11/05/2024 6:51 AM EDT 11/05/2024 10:39 AM EDT us Eusebio Sprague MD LAB BLOOD ORDERABLES Final Resul t Performing Organization Address City/[facility]/ZIP Co de Phone Number [facility] [address] [place] [address], [place] [phone] * Thyroid stimulating hormone (11/05/2024 6:51 AM EDT) [facility] TSH 2.71 0.40 - 4.00 mcIU/mL LAB CHEMISTRY METHOD 11/05/2024 12:58 PM EDT [facility] Blood Venous blood specimen / Unknown Venipuncture / Unknown 11/05/2024 6:51 AM EDT 11/05/2024 10:39 AM EDT us Eusebio Sprague MD LAB BLOOD ORDERABLES Final Resul t [facility] [address] [place] [address], [place] [phone] * Vitamin D 25 hydroxy (11/05/2024 6:51 AM EDT) [facility] Vit D, 25-Hydroxy 38.0 30.0 - 80.0 ng/mL LAB CHEMISTRY METHOD 11/05/2024 12:58 PM EDT [facility] Blood Venous blood specimen / Unknown Venipuncture / Unknown 11/05/2024 6:51 AM EDT 11/05/2024 10:39 AM EDT us Eusebio Sprague MD LAB BLOOD ORDERABLES Final Resul t Performing Organization Address [facility] Co de Phone Number [facility] [address] [place] [address], [place] [phone] * Vitamin B12 (11/05/2024 6:51 AM EDT) [facility] Vitamin B-12 387 250 - 900 pcg/mL LAB CHEMISTRY METHOD 11/05/2024 12:33 PM EDT [facility] Blood Venous blood specimen / Unknown Venipuncture / Unknown 11/05/2024 6:51 AM EDT 11/05/2024 10:39 AM EDT us Eusebio Sprague MD LAB BLOOD ORDERABLES Final Resul t Performing Organization Address [facility] de Phone Number [facility] [address] [place] [address], [place] [phone] * Folate (11/05/2024 6:51 AM EDT) [facility] Folate 8.7 2.8 - 17.0 ng/ml LAB CHEMISTRY METHOD 11/05/2024 12:33 PM EDT [facility] Blood Venous blood specimen / Unknown Venipuncture / Unknown 11/05/2024 6:51 AM EDT 11/05/2024 10:39 AM EDT us Eusebio Sprague MD LAB BLOOD ORDERABLES Final Resul t Performing Organization Address [facility] Co de Phone Number [facility] [address] [place] [address], [place] [phone] * (ABNORMAL) Prothrombin time with INR (11/05/2024 6:51 AM EDT) [facility] Protime 17.5(H) 10.6 - 13.9 sec LAB COAGULATION METHOD 11/05/2024 11:22 AM [facility] INR 1.4 LAB COAGULATION METHOD 11/05/2024 11:22 AM [facility] Blood Venous blood specimen / Unknown Venipuncture / Unknown 11/05/2024 6:51 AM EDT 11/05/2024 10:39 AM EDT us Eusebio Sprague MD LAB BLOOD ORDERABLES Final Resul t [facility] [address] [place] [address], [place] [phone] * (ABNORMAL) Comprehensive metabolic panel (11/05/2024 6:51 AM EDT) [facility] Sodium 140 133 - 145 mmol/L LAB [...] MD LAB BLOOD ORDERABLES Final Resul t [facility] [address] [place] [address], * (ABNORMAL) Complete blood count (11/05/2024 6:51 AM EDT) [facility] WBC 5.3 4.8 - 10.8 K/mcL LAB [...] LAB HEMETOLOGY METHOD 11/05/2024 11:32 AM EDT [facility] Blood Venous blood specimen / Unknown Venipuncture / Unknown 11/05/2024 6:51 AM EDT 11/05/2024 10:39 AM EDT us Eusebio Sprague MD LAB BLOOD ORDERABLES Final Resul t [facility] [address] [place] [address], documented in this encounter Visit Diagnoses Diagnosis Unspecified atrial fibrillation (CMS/HCC V24, CMS/HCC V28) Nontoxic single thyroid nodule Nontoxic uninodular goiter Essential (primary) hypertension Unspecified essential hypertension Heart failure, unspecified (CMS/HCC V24, CMS/HCC V28) Heart failure, unspecified Vitamin D deficiency, unspecified Diverticulum of bladder documented in this encounter Care Teams Necktie Stitcher Relationship Specialty Start Date End Date Eusebio Sprague MD [address] [place] [address] [address] [place] [address] PCP - General Geriatric Medicine 11/05/24 documented as of this encounter
--- OUTSIDE RECORDS SUMMARY | 2025-03-31 12:28 | XMS_ITS | Encounter Summary ---
Author Organization [employer] Address [address] [place] [address] Care Team Providers Care Continuity Coordinator Name Role Phone Eusebio Sprague MD Primary Care Provider [phone] Encounter Details Date Type Department Care Team (Late st Contact Info) Description 12/20/2024 Lab Requisition [facility] - Main Lab [address] [place] [address] Eusebio Sprague MD [address] [place], [place] [phone] Unspecified atrial fibrillation (CMS/HCC V24, CMS/HCC V28); [...] mmol/L LAB CHEMISTRY METHOD 12/22/2024 1:13 PM [facility] Potassium 4.8 3.5 - 5.5 mmol/L LAB CHEMISTRY METHOD 12/22/2024 1:13 PM [facility] Chloride 109 96 - 110 mmol/L LAB CHEMISTRY METHOD 12/22/2024 1:13 PM [facility] CO2 25 21 - 32 mmol/L LAB CHEMISTRY METHOD 12/22/2024 1:13 PM [facility] Anion Gap 6 3 - 11 LAB CHEMISTRY METHOD 12/22/2024 1:13 PM [facility] Glucose 72 70 - 100 mg/dL LAB CHEMISTRY METHOD 12/22/2024 1:13 PM [facility] BUN 33(H) 5 - 25 mg/dL LAB CHEMISTRY METHOD 12/22/2024 1:13 PM [facility] Creatinine 1.53(H) 0.50 - 1.10 mg/dL LAB CHEMISTRY METHOD 12/22/2024 1:13 PM [facility] eGFR 33(L) >=60 mL/min/1. 73m2 LAB CHEMISTRY METHOD 12/22/2024 1:13 PM [facility] Comment:Calculation based on the Chronic Kidney Disease Epidemiology Collaboration (CKD-EPI) equation refit without adjustment for race. BUN/Creatinine Ratio 21.6 LAB CHEMISTRY METHOD 12/22/2024 1:13 PM [facility] Calcium 8.7 8.5 - 10.5 mg/dL LAB CHEMISTRY METHOD 12/22/2024 1:13 PM [facility] Blood Venous blood specimen / Unknown Venipuncture / Unknown 12/22/2024 6:15 AM EDT 12/22/2024 10:44 AM EDT us Fahim A Celestine MD LAB BLOOD ORDERABLES Final Resul t [facility] [address] [place] [address], * (ABNORMAL) Complete blood count (12/22/2024 6:15 AM EDT) WBC 4.7(L) 4.8 - 10.8 K/mcL LAB HEMETOLOGY METHOD 12/22/2024 11:59 AM EDT [facility] RBC 3.70(L) 3.80 - 4.80 M/mcL LAB HEMETOLOGY METHOD 12/22/2024 11:59 AM EDT [facility] Hemoglobin 11.3(L) 11.5 - 16.0 g/dL LAB HEMETOLOGY METHOD 12/22/2024 11:59 AM EDT [facility] Hematocrit 36.4 35.0 - 47.0 % LAB HEMETOLOGY METHOD 12/22/2024 11:59 AM EDT [facility] MCV 99.5(H) 79.0 - 98.0 FL LAB HEMETOLOGY METHOD 12/22/2024 11:59 [facility] MCH 30.9 27.0 - 32.0 pcg LAB HEMETOLOGY METHOD 12/22/2024 11:59 AM EDT [facility] MCHC 31.0(L) 32.0 - 37.0 g/dL LAB HEMETOLOGY METHOD 12/22/2024 11:59 AM EDT [facility] RDW 13.9 11.0 - 15.0 % LAB HEMETOLOGY METHOD 12/22/2024 11:59 AM EDT [facility] Platelets 153 130 - 400 K/mcL LAB HEMETOLOGY METHOD 12/22/2024 11:59 AM EDT [facility] MPV 10.1 7.0 - 11.0 FL LAB HEMETOLOGY METHOD 12/22/2024 11:59 AM EDT [facility] NRBC 0.0 <1.0 % LAB HEMETOLOGY METHOD 12/22/2024 11:59 AM EDT [facility] NRBC Absolute 0.00 <0.10 K/mcL LAB HEMETOLOGY METHOD 12/22/2024 11:59 AM EDT [facility] Blood Venous blood specimen / Unknown Venipuncture / Unknown 12/22/2024 6:15 AM EDT 12/22/2024 10:44 AM EDT Eusebio Sprague MD LAB BLOOD ORDERABLES Final Resul t Performing Organization Address City/[facility]/ZIP Co de Phone Number [facility] [address] [place] [address], [place] [phone] * (ABNORMAL) Prothrombin time with INR (12/22/2024 6:15 AM EDT) Protime 27.8(H) 10.6 - 13.9 sec LAB COAGULATION METHOD 12/22/2024 11:38 AM EDT [facility] INR 2.2 LAB COAGULATION METHOD 12/22/2024 11:38 AM EDT [facility] Blood Venous blood specimen / Unknown Venipuncture / Unknown 12/22/2024 6:15 AM EDT 12/22/2024 10:44 AM EDT Eusebio Sprague MD LAB BLOOD ORDERABLES Final Resul t Performing Organization Address City/[facility]/ZIP Co de Phone Number [facility] [address] [place] [address], [place] [phone] documented in this encounter Visit Diagnoses Diagnosis Unspecified atrial fibrillation (CMS/HCC V24, CMS/HCC V28) Essential (primary) hypertension Unspecified essential hypertension documented in this encounter Care Teams Continuity Coordinator Relationship Specialty Start Date End Date Eusebio Sprague MD [address] [place] [address] [address] [place] [address] PCP - General Geriatric Medicine 11/05/24 documented as of this encounter
--- OUTSIDE RECORDS SUMMARY | 2025-03-31 12:28 | XMS_ITS | Encounter Summary ---
Author Organization [employer] Address [address] [place] [address] Care Team Providers Care Director Of Women'S Services Name Role Phone Eusebio Sprague MD Primary Care Provider [phone] Encounter Details Date Type Department Care Team (Late st Contact Info) Description 12/17/2024 Lab Requisition [facility] - Main Lab [address] [facility] [place] [address] Eusebio Sprague MD [address] [place], [place] [phone] Unspecified atrial fibrillation (CMS/HCC V24, CMS/HCC V28) [...] LAB COAGULATION METHOD 12/18/2024 10:20 AM [facility] INR 1.8 LAB COAGULATION METHOD 12/18/2024 10:20 AM [facility] Blood Venous blood specimen / Unknown Venipuncture / Unknown 12/18/2024 6:57 AM EDT 12/18/2024 9:44 AM EDT Eusebio Sprague MD LAB BLOOD ORDERABLES Final Resul t [facility] ([facility]) [facility] [address] [place] [address], documented in this encounter Visit Diagnoses Diagnosis Unspecified atrial fibrillation (CMS/HCC V24, CMS/HCC V28) documented in this encounter Care Teams Director Of Women'S Services Relationship Specialty Start Date End Date Eusebio Sprague MD [address] [place] [address] [address] [place] [address] PCP - General Geriatric Medicine 11/05/24 documented as of this encounter
--- OUTSIDE RECORDS SUMMARY | 2025-03-31 12:28 | XMS_ITS | Encounter Summary ---
Author Organization [employer] Address [address] [place] [address] Care Team Providers Care Event Av Operator Name Role Phone Eusebio Sprague MD Primary Care Provider [phone] Encounter Details Date Type Department Care Team (Late st Contact Info) Description 12/24/[address] [facility] - Main Lab [address] [facility] [place] [address] Eusebio Sprague MD [address] [place], [place] [phone] Unspecified atrial fibrillation (CMS/HCC V24, CMS/HCC V28) [...] V28) documented in this encounter Care Teams Event Av Operator Relationship Specialty Start Date End Date Eusebio Sprague MD [address] [place], [place] [phone] PCP - General Geriatric Medicine 11/05/24 documented as of this encounter
--- OUTSIDE RECORDS SUMMARY | 2025-03-31 12:28 | XMS_ITS | Encounter Summary ---
Author Organization [employer] Address [address] [place] [address] Care Team Providers Care Director On Air Name Role Phone Eusebio Sprague MD Primary Care Provider [phone] Encounter Details Date Type Department Care Team (Late st Contact Info) Description 12/03/2024 Lab Requisition [facility] - Main Lab [address] [facility] [place] [address] Eusebio Sprague MD [address] [place], [place] [phone] Unspecified atrial fibrillation (CMS/HCC V24, CMS/HCC V28) [...] MD LAB BLOOD ORDERABLES Final Resul t [facility] ([facility]) [facility] [address] [place] [address], documented in this encounter Visit Diagnoses Diagnosis Unspecified atrial fibrillation (CMS/HCC V24, CMS/HCC V28) documented in this encounter Care Teams Director On Air Relationship Specialty Start Date End Date Eusebio Sprague MD [address] [place] [address] [address] [place] [address] PCP - General Geriatric Medicine 11/05/24 documented as of this encounter
--- OUTSIDE RECORDS SUMMARY | 2025-03-31 12:28 | XMS_ITS | Encounter Summary ---
Author Organization [employer] Address [address] [place] [address] Care Team Providers Care Storage Battery Inspector And Tester Name Role Phone Eusebio Sprague MD Primary Care Provider [phone] Encounter Details Date Type Department Care Team (Late st Contact Info) Description 11/08/2024 Lab Requisition [facility] - Main Lab [address] [place] [address] Eusebio Sprague MD [address] [place], [place] [phone] Unspecified atrial fibrillation (CMS/HCC V24, CMS/HCC V28); [...] (CMS/HCC V24, CMS/HCC V28) Heart failure, unspecified ([facility] V24, [facility] V28) documented in this encounter [...] Final Resul t [facility] [address] [place] [address], * (ABNORMAL) Complete blood count (11/10/2024 6:08 [...] Final Resul t [facility] [address] [place] [address], [place] [phone] * (ABNORMAL) Prothrombin time with INR (11/10/2024 [...] Final Resul t [facility] [address] [place], [place] [address] [phone] documented in this encounter Visit Diagnoses Diagnosis Unspecified atrial fibrillation (CMS/[facility] V24, CMS/HCC V28) Heart failure, unspecified (CMS/[facility] V24, CMS/[facility] V28) Heart failure, unspecified documented in this encounter Care Teams Storage Battery Inspector And Tester Relationship Specialty Start Date End Date Eusebio Sprague MD [address] [place] [address] [address] [place] [address] PCP - General Geriatric Medicine 11/05/24 documented as of this encounter
--- OUTSIDE RECORDS SUMMARY | 2025-03-31 12:28 | XMS_ITS | Encounter Summary ---
Author Organization [facility] Address [address] [place] [address] Care Team Providers Care Hydroelectric Station Operator Chief Name Role Phone Eusebio Sprague MD Primary Care Provider [phone] Encounter Details Date Type Department Care Team (Late st Contact Info) Description 12/11/2024 Lab Requisition [facility] - Main Lab [address] [facility] [place] [address] Eusebio Sprague MD [address] [place], [place] [id number] Frequency of micturition Social History Tobacco Use [...] reflex microscopic (12/10/2024 4:30 AM EDT) Specific Gay Urine 1.014 1.003 - 1.030 LAB URINALYSIS - AUTOMATED METHOD 12/11/2024 10:24 AM EDT [facility] pH, Urine 5.5 5.0 - 8.0 pH LAB URINALYSIS - AUTOMATED METHOD 12/11/2024 10:24 AM [facility] Leukocytes, Urine Large(A) Negative LAB URINALYSIS - AUTOMATED METHOD 12/11/2024 10:24 AM [facility] Nitrite, Urine Negative Negative LAB URINALYSIS - AUTOMATED METHOD 12/11/2024 10:24 AM [facility] Protein, Urine Trace <=Trace mg/dL LAB URINALYSIS - AUTOMATED METHOD 12/11/2024 10:24 AM [facility] Glucose, Urine Negative Negative mg/dL LAB URINALYSIS - AUTOMATED METHOD 12/11/2024 10:24 AM [facility] Ketones, Urine Negative Negative mg/dL LAB URINALYSIS - AUTOMATED METHOD 12/11/2024 10:24 AM [facility] Urobilinogen, Urine 0.2 0.2 - 1.0 mg/dL LAB URINALYSIS - AUTOMATED METHOD 12/11/2024 10:24 AM [facility] Bilirubin, Urine Negative Negative LAB URINALYSIS - AUTOMATED METHOD 12/11/2024 10:24 AM [facility] Blood, Urine Small(A) Negative LAB URINALYSIS - AUTOMATED METHOD 12/11/2024 10:24 AM [facility] RBC, Urine 7.1(H) 0 - 4 /HPF LAB URINALYSIS - AUTOMATED METHOD 12/11/2024 10:24 AM [facility] WBC, Urine 990.7(H) 0 - 4 /HPF LAB URINALYSIS - AUTOMATED METHOD 12/11/2024 10:24 AM [facility] Squamous Epithelial, Urine 41 0 - 60 /LPF LAB URINALYSIS - AUTOMATED METHOD 12/11/2024 10:24 AM [facility] Bacteria, Urine Many(A) Negative /HPF [...] [facility] [address] [place] [address], * (ABNORMAL) Culture urine (12/10/2024 4:30 AM [...] MICROBIOLOGY - GENERAL ORDER GONZALEZ Final Result [facility] ([facility] LAB [address] [place] [address], documented in this encounter Visit Diagnoses Diagnosis Frequency of micturition Urinary frequency documented in this encounter Care Teams Hydroelectric Station Operator Chief Relationship Specialty Start Date End Date Eusebio Sprague MD [address] [place] [address] [address] [place] [address] PCP - General Geriatric Medicine 11/05/24 documented as of this encounter
--- OUTSIDE RECORDS SUMMARY | 2025-03-31 12:28 | XMS_ITS | Encounter Summary ---
Author Organization [facility] Address [address] [place] [address] Care Team Providers Care Machine Chain Maker Name Role Phone Eusebio Sprague MD Primary Care Provider [phone] Encounter Details Date Type Department Care Team (Late st Contact Info) Description 12/12/2024 Lab Requisition [facility] - Main Lab [address] [facility] [address] [place] [address] Eusebio Sprague MD [address] [place], [place] [phone] Unspecified atrial fibrillation (CMS/HCC V24, CMS/HCC V28); [...] mmol/L LAB CHEMISTRY METHOD 12/16/2024 2:14 PM [facility] Potassium 4.7 3.5 - 5.5 mmol/L LAB CHEMISTRY METHOD 12/16/2024 2:14 PM [facility] Chloride 110 96 - 110 mmol/L LAB CHEMISTRY METHOD 12/16/2024 2:14 PM [facility] CO2 23 21 - 32 mmol/L LAB CHEMISTRY METHOD 12/16/2024 2:14 PM [facility] Anion Gap 8 3 - 11 LAB CHEMISTRY METHOD 12/16/2024 2:14 PM [facility] Glucose 80 70 - 100 mg/dL LAB CHEMISTRY METHOD 12/16/2024 2:14 PM [facility] BUN 38(H) 5 - 25 mg/dL LAB CHEMISTRY METHOD 12/16/2024 2:14 PM [facility] Creatinine 1.51(H) 0.50 - 1.10 mg/dL LAB CHEMISTRY METHOD 12/16/2024 2:14 PM [facility] LAB eGFR 33(L) >=60 mL/min/1. 73m2 LAB CHEMISTRY METHOD 12/16/2024 2:14 PM [facility] LAB Comment:Calculation based on the Chronic Kidney Disease Epidemiology Collaboration (CKD-EPI) equation refit without adjustment for race. BUN/Creatinine Ratio 25.2 LAB CHEMISTRY METHOD 12/16/2024 2:14 PM [facility] Calcium 8.7 8.5 - 10.5 mg/dL LAB CHEMISTRY METHOD 12/16/2024 2:14 PM [facility] Blood Venous blood specimen / Unknown Venipuncture / Unknown 12/16/2024 5:01 AM EDT 12/16/2024 11:06 AM EDT us Fahim A Celestine MD LAB BLOOD ORDERABLES Final Resul t [facility] [address] [place] [address], * (ABNORMAL) Complete blood count (12/16/2024 5:01 AM EDT) WBC 4.1(L) 4.8 - 10.8 K/mcL LAB HEMETOLOGY METHOD 12/16/2024 11:[address] [facility] RBC 3.60(L) 3.80 - 4.80 M/mcL LAB HEMETOLOGY METHOD 12/16/2024 11:[facility] Hemoglobin 11.3(L) 11.5 - 16.0 g/dL LAB HEMETOLOGY METHOD 12/16/2024 11:52 AM [facility] Hematocrit 36.7 35.0 - 47.0 % LAB HEMETOLOGY METHOD 12/16/2024 11:52 AM [facility] MCV 100.8(H) 79.0 - 98.0 FL LAB HEMETOLOGY METHOD 12/16/2024 11:52 AM [facility] MCH 31.0 27.0 - 32.0 pcg LAB HEMETOLOGY METHOD 12/16/2024 11:[address] [facility] MCHC 30.8(L) 32.0 - 37.0 g/dL LAB HEMETOLOGY METHOD 12/16/2024 11:52 AM [facility] RDW 14.0 11.0 - 15.0 % LAB HEMETOLOGY METHOD 12/16/2024 11:52 AM [facility] Platelets 168 130 - 400 K/mcL LAB HEMETOLOGY METHOD 12/16/2024 11:[facility] MPV 9.8 7.0 - 11.0 FL LAB HEMETOLOGY METHOD 12/16/2024 11:[address] [facility] NRBC 0.0 <1.0 % LAB HEMETOLOGY METHOD 12/16/2024 11:[address] [facility] NRBC Absolute 0.00 <0.10 K/mcL LAB HEMETOLOGY METHOD 12/16/2024 11:[address] [facility] Blood Venous blood specimen / Unknown Venipuncture / Unknown 12/16/2024 5:01 AM EDT 12/16/2024 11:06 AM EDT Eusebio Sprague MD LAB BLOOD ORDERABLES Final Resul t Performing Organization Address City/[facility]/ZIP Co de Phone Number [facility] [address] [place] [address], [place] [phone] * (ABNORMAL) Prothrombin time with INR (12/16/2024 5:01 AM EDT) Protime 29.8(H) 10.6 - 13.9 sec LAB COAGULATION METHOD 12/16/2024 11:[address] [facility] INR 2.4 LAB COAGULATION METHOD 12/16/2024 11:[address] [facility] Blood Venous blood specimen / Unknown Venipuncture / Unknown 12/16/2024 5:01 AM EDT 12/16/2024 11:06 AM EDT Eusebio Sprague MD LAB BLOOD ORDERABLES Final Resul t Performing Organization Address City/[facility]/ZIP Co de Phone Number [facility] [address] [place] [address], [place] [phone] documented in this encounter Visit Diagnoses Diagnosis Unspecified atrial fibrillation (CMS/HCC V24, CMS/HCC V28) Essential (primary) hypertension Unspecified essential hypertension documented in this encounter Care Teams Machine Chain Maker Relationship Specialty Start Date End Date Eusebio Sprague MD [address] [place] [address] [address] [place] [address] PCP - General Geriatric Medicine 11/05/24 documented as of this encounter
--- OUTSIDE RECORDS SUMMARY | 2025-03-31 12:28 | XMS_ITS | Encounter Summary ---
Author Organization [employer] Address [address] [place] [address] Care Team Providers Care Hollow Handle Bench Worker Name Role Phone Eusebio Sprague MD Primary Care Provider [phone] Encounter Details Date Type Department Care Team (Late st Contact Info) Description 11/29/2024 Lab Requisition [facility] - Main Lab [address] [facility] [place] [address] Eusebio Sprague MD [address] [place], [place] [phone] Unspecified atrial fibrillation (CMS/HCC V24, CMS/HCC V28); [...] mmol/L LAB CHEMISTRY METHOD 12/01/2024 12:06 PM [facility] Potassium 4.7 3.5 - 5.5 mmol/L LAB CHEMISTRY METHOD 12/01/2024 12:06 PM [facility] Chloride 113(H) 96 - 110 mmol/L LAB CHEMISTRY METHOD 12/01/2024 12:06 PM [facility] CO2 25 21 - 32 mmol/L LAB CHEMISTRY METHOD 12/01/2024 12:06 PM [facility] Anion Gap 4 3 - 11 LAB CHEMISTRY METHOD 12/01/2024 12:06 PM [facility] Glucose 71 70 - 100 mg/dL LAB CHEMISTRY METHOD 12/01/2024 12:06 PM [facility] BUN 38(H) 5 - 25 mg/dL LAB CHEMISTRY METHOD 12/01/2024 12:06 PM [facility] Creatinine 1.61(H) 0.50 - 1.10 mg/dL LAB CHEMISTRY METHOD 12/01/2024 12:06 PM [facility] eGFR 31(L) >=60 mL/min/1. 73m2 LAB CHEMISTRY METHOD 12/01/2024 12:06 PM [facility] Comment:Calculation based on the Chronic Kidney Disease Epidemiology Collaboration (CKD-EPI) equation refit without adjustment for race. BUN/Creatinine Ratio 23.6 LAB CHEMISTRY METHOD 12/01/2024 12:06 PM [facility] Calcium 8.8 8.5 - 10.5 mg/dL LAB CHEMISTRY METHOD 12/01/2024 12:06 PM [facility] Blood Venous blood specimen / Unknown Venipuncture / Unknown 12/01/2024 6:20 AM EDT 12/01/2024 9:55 AM EDT us Eusebio Sprague MD LAB BLOOD ORDERABLES Final Resul t [facility] [address] [place] [address], * (ABNORMAL) Complete blood count (12/01/2024 6:20 AM EDT) WBC 4.6(L) 4.8 - 10.8 K/mcL LAB HEMETOLOGY METHOD 12/01/2024 11:37 AM EDT [facility] RBC 3.50(L) 3.80 - 4.80 M/mcL LAB HEMETOLOGY METHOD 12/01/2024 11:37 AM EDT [facility] Hemoglobin 10.9(L) 11.5 - 16.0 g/dL LAB HEMETOLOGY METHOD 12/01/2024 11:37 AM EDT [facility] Hematocrit 35.0 35.0 - 47.0 % LAB HEMETOLOGY METHOD 12/01/2024 11:37 AM EDT [facility] MCV 100.0(H) 79.0 - 98.0 FL LAB HEMETOLOGY METHOD 12/01/2024 11:37 AM EDT [facility] MCH 31.1 27.0 - 32.0 pcg LAB HEMETOLOGY METHOD 12/01/2024 11:37 AM EDT [facility] MCHC 31.1(L) 32.0 - 37.0 g/dL LAB HEMETOLOGY METHOD 12/01/2024 11:37 AM EDT [facility] RDW 14.2 11.0 - 15.0 % LAB HEMETOLOGY METHOD [facility]24 [facility] Platelets 173 130 - 400 K/mcL LAB HEMETOLOGY METHOD 12/01/2024 11:37 AM EDT [facility] MPV 9.7 7.0 - 11.0 FL LAB HEMETOLOGY METHOD 12/01/2024 11:37 AM EDT [facility] NRBC 0.0 <1.0 % LAB HEMETOLOGY METHOD 12/01/2024 11:37 AM EDT [facility] NRBC Absolute 0.00 <0.10 K/mcL LAB HEMETOLOGY METHOD 12/01/2024 11:37 AM EDT [facility] Blood Venous blood specimen / Unknown Venipuncture / Unknown 12/01/2024 6:20 AM EDT 12/01/2024 9:55 AM EDT Eusebio Sprague MD LAB BLOOD ORDERABLES Final Resul t Performing Organization Address [facility] Co de Phone Number [facility] [address] [place] [address], [place] [phone] * (ABNORMAL) Prothrombin time with INR (12/01/2024 6:20 AM EDT) Protime 19.3(H) 10.6 - 13.9 sec LAB COAGULATION METHOD 12/01/2024 11:46 AM EDT [facility] INR 1.5 LAB COAGULATION METHOD 12/01/2024 11:46 AM EDT [facility] Blood Venous blood specimen / Unknown Venipuncture / Unknown 12/01/2024 6:20 AM EDT 12/01/2024 9:55 AM EDT Eusebio Sprague MD LAB BLOOD ORDERABLES Final Resul t Performing Organization Address City/[facility]/ZIP Co de Phone Number [facility] [address] [place] [address], [place] [phone] documented in this encounter Visit Diagnoses Diagnosis Unspecified atrial fibrillation (CMS/HCC V24, CMS/HCC V28) Essential (primary) hypertension Unspecified essential hypertension documented in this encounter Care Teams Hollow Handle Bench Worker Relationship Specialty Start Date End Date Eusebio pSrague MD [address] [place] [address] [address] [place] [address] PCP - General Geriatric Medicine 11/05/24 documented as of this encounter
--- OUTSIDE RECORDS SUMMARY | 2025-03-31 12:28 | XMS_ITS | Encounter Summary ---
Author Organization [facility] Address [address] [place] [address] Care Team Providers Care Clinical Assistant Professor Name Role Phone Eusebio Sprague MD Primary Care Provider [phone] Encounter Details Date Type Department Care Team (Late st Contact Info) Description 11/26/2024 Lab Requisition [facility] - Main Lab 299 [facility] [place] [address] Eusebio Sprague MD [address] [place], [place] [phone] Unspecified atrial fibrillation (CMS/HCC V24, CMS/HCC V28) [...] sec LAB COAGULATION METHOD 11/27/2024 8:56 AM [facility] INR 2.0 LAB COAGULATION METHOD 11/27/2024 8:56 AM [facility] Blood Venous blood specimen / Unknown Venipuncture / Unknown 11/27/2024 6:40 AM EDT 11/27/2024 8:33 AM EDT Eusebio Sprague MD LAB BLOOD ORDERABLES Final Resul t [facility] ([facility]) [facility] [address] [place] [address], documented in this encounter Visit Diagnoses Diagnosis Unspecified atrial fibrillation (CMS/HCC V24, CMS/HCC V28) documented in this encounter Care Teams Clinical Assistant Professor Relationship Specialty Start Date End Date Eusebio Sprague MD [address] [place] [address] [address] [place] [address] PCP - General Geriatric Medicine 11/05/24 documented as of this encounter
--- OUTSIDE RECORDS SUMMARY | 2025-03-31 12:28 | XMS_ITS | Patient Health Record ---
Author Organization [facility] Address [address] [place] [address] Care Team Providers Care Validation Technician Name Role Phone Kim LOPEZ, Jose Cruz [...] Notes Problem Long-term current use of anticoagulant (175428170) care home (current) use of anticoagulants (Z79.01) Active confirmed Problem Iron deficiency anemia (49223749) Iron deficiency anemia (D50.9) Active confirmed Problem Polyp colon (78539174) Colon polyp (K63.5) Active confirmed Problem Erosive esophagitis (87775426) Erosive esophagitis (K22.10) Active confirmed Plan Of Treatment Future Test Test Name Order Date UPPER GI ENDOSCOPY 03/01/2016 COLONOSCOPY 03/01/2016 Insurance Providers Payer Name Payer Address Payer Phone Subscriber Number Group Number Insured Name Patient Relationship to Insured Coverage Start Date Coverage End Date [facility] [address] [place] [phone] [id number] CHRISTAL ROGERS Self - patient is the insured Medical (General) History Medical History History ICD Code colonoscopy 07-02-09 hemorrhoids history of intermittent rectal itching a nd discomfort breast cancer on the left, s tatus post mastectomy and lymph node resetion in 1992 hypertension melanoma shingles with post-hepatic neuralgia Denies LA,DM,CVA,Lung disease,renal dise ase Atrial fibrillation blood clots Surgical History Surgery Date(Month/Year) mastectomy and lymph node resection in -left breast removal of melanoma from the back hysterectomy for fibroid disease lumpectomy, right breast 2013
--- OUTSIDE RECORDS SUMMARY | 2025-03-31 12:28 | XMS_ITS | Encounter Summary ---
Author Organization [facility] Address [address] [place] [address] Care Team Providers Care Composite Engineer Name Role Phone Eusebio Sprague MD Primary Care Provider [phone] Encounter Details Date Type Department Care Team (Late st Contact Info) Description 11/05/2024 Lab Requisition [facility] - Main Lab 299 [facility] [place] [address] Eusebio Sprague MD [address] [place], [place] [phone] Unspecified atrial fibrillation (CMS/HCC V24, CMS/HCC V28) [...] sec LAB COAGULATION METHOD 11/06/2024 9:24 AM [facility] INR 1.6 LAB COAGULATION METHOD 11/06/2024 9:24 AM [facility] Blood Venous blood specimen / Unknown Venipuncture / Unknown 11/06/2024 7:06 AM EDT 11/06/2024 9:01 AM EDT Eusebio Sprague MD LAB BLOOD ORDERABLES Final Resul t [facility] ([facility]) [facility] [address] [place] [address], documented in this encounter Visit Diagnoses Diagnosis Unspecified atrial fibrillation (CMS/HCC V24, CMS/HCC V28) documented in this encounter Care Teams Composite Engineer Relationship Specialty Start Date End Date Eusebio Sprague MD [address] [place] [address] [address] [place] [address] PCP - General Geriatric Medicine 11/05/24 documented as of this encounter
--- OUTSIDE RECORDS SUMMARY | 2025-03-31 12:28 | XMS_ITS | Encounter Summary ---
Author Organization [employer] Address [address] [place] [address] Care Team Providers Care Washery Engineer Name Role Phone Eusebio Sprague MD Primary Care Provider [phone] Encounter Details Date Type Department Care Team (Late st Contact Info) Description 12/10/2024 Lab Requisition [facility] - Main Lab [address] [facility] [place] [address] Eusebio Sprague MD [address] [place], [place] [phone] Unspecified atrial fibrillation (CMS/HCC V24, CMS/HCC V28) [...] LAB BLOOD ORDERABLES Final Resul t [facility] [address] [place] [address], documented in this encounter Visit Diagnoses Diagnosis Unspecified atrial fibrillation (CMS/HCC V24, CMS/HCC V28) documented in this encounter Care Teams Washery Engineer Relationship Specialty Start Date End Date Eusebio Sprague MD [address] [place] [address] [address] [place] [address] PCP - General Geriatric Medicine 11/05/24 documented as of this encounter
--- OUTSIDE RECORDS SUMMARY | 2025-03-31 12:28 | XMS_ITS | Encounter Summary ---
Author Organization [employer] Address [address] [place] [address] Care Team Providers Care Proof Technician Name Role Phone Eusebio Sprague MD Primary Care Provider [phone] Encounter Details Date Type Department Care Team (Late st Contact Info) Description 11/15/2024 Lab Requisition [facility] - Main Lab 299 [facility] [place] [address] Eusebio Sprague MD [address] [place], [place] [phone] Unspecified atrial fibrillation (CMS/HCC V24, CMS/HCC V28); [...] unspecified documented in this encounter Care Teams Proof Technician Relationship Specialty Start Date End Date Eusebio Sprague MD [address] [place], [place] [phone] PCP - General Geriatric Medicine 11/05/24 documented as of this encounter
--- OUTSIDE RECORDS SUMMARY | 2025-03-31 12:28 | XMS_ITS | Clinical Summary ---
Author Organization [address] Address [address] [place] [address] Phone Care Team Providers Care Sociology Research Assistant Name Role Phone Eusebio Sprague MD Primary Care Provider Social History Tobacco Use Types Packs/Day Years [...] - PCV) 03/13/2018 03/13/2017 Depression Screening 04/16/2024 Falls Risk Assessment 11/06/2024 Medicare Annual Wellness Visit 11/06/2024 Osteoporosis Screening (Bone Density Screening) 11/06/2024 Social Influencers of Health Screening 11/06/2024 COVID-19 Vaccine ( season) 2024 02/01/2024, 03/22/2023, 01/12/2021, Additional history exists Influenza Vaccine (#1) 2024 , 01/24/2023, 02/03/2022, Additional history exists DTaP,Tdap,and Td Vaccines (2 [...] patient's age to complete this topic Insurance [employer] Care Teams Sociology Research Assistant Relationship Specialty Start Date End Date Eusebio Sprague MD [address] [place] [address] [address] [place] [address] PCP - General Geriatric Medicine 11/05/24
--- OUTSIDE RECORDS SUMMARY | 2025-03-31 12:28 | XMS_ITS | Encounter Summary ---
Author Organization [employer] Address [address] [place] [address] Care Team Providers Care Test Consultant Name Role Phone Eusebio Sprague MD Primary Care Provider [phone] Encounter Details Date Type Department Care Team (Late st Contact Info) Description 12/05/2024 Lab Requisition [facility] - Main Lab [address] [place] [address] Eusebio Sprague MD [address] [place], [place] [phone] Unspecified atrial fibrillation (CMS/HCC V24, CMS/HCC V28); [...] mmol/L LAB CHEMISTRY METHOD 12/08/2024 1:54 PM [facility] Potassium 5.1 3.5 - 5.5 mmol/L LAB CHEMISTRY METHOD 12/08/2024 1:54 PM [facility] Chloride 111(H) 96 - 110 mmol/L LAB CHEMISTRY METHOD 12/08/2024 1:54 PM [facility] CO2 23 21 - 32 mmol/L LAB CHEMISTRY METHOD 12/08/2024 1:54 PM [facility] Anion Gap 7 3 - 11 LAB CHEMISTRY METHOD 12/08/2024 1:54 PM [facility] Glucose 68(L) 70 - 100 mg/dL LAB CHEMISTRY METHOD 12/08/2024 1:54 PM [facility] BUN 34(H) 5 - 25 mg/dL LAB CHEMISTRY METHOD 12/08/2024 1:54 PM [facility] Creatinine 1.55(H) 0.50 - 1.10 mg/dL LAB CHEMISTRY METHOD 12/08/2024 1:54 PM [facility] eGFR 32(L) >=60 mL/min/1. 73m2 LAB CHEMISTRY METHOD 12/08/2024 1:54 PM [facility] Comment:Calculation based on the Chronic Kidney Disease Epidemiology Collaboration (CKD-EPI) equation refit without adjustment for race. BUN/Creatinine Ratio 21.9 LAB CHEMISTRY METHOD 12/08/2024 1:54 PM [facility] Calcium 8.8 8.5 - 10.5 mg/dL LAB CHEMISTRY METHOD 12/08/2024 1:54 PM [facility] Blood Venous blood specimen / Unknown Venipuncture / Unknown 12/08/2024 6:23 AM EDT 12/08/2024 10:07 AM EDT us Eusebio Sprague MD LAB BLOOD ORDERABLES Final Resul t [facility] [address] [place] [address], * (ABNORMAL) Complete blood count (12/08/2024 6:23 AM EDT) WBC 5.6 4.8 - 10.8 K/mcL LAB HEMETOLOGY METHOD 12/08/2024 11:03 AM EDT [facility] RBC 3.80 3.80 - 4.80 M/mcL LAB HEMETOLOGY METHOD 12/08/2024 11:[facility] Hemoglobin 11.8 11.5 - 16.0 g/dL LAB HEMETOLOGY METHOD 12/08/2024 11:03 AM [facility] Hematocrit 37.4 35.0 - 47.0 % LAB HEMETOLOGY METHOD 12/08/2024 11:03 AM [facility] MCV 99.2(H) 79.0 - 98.0 FL LAB HEMETOLOGY METHOD 12/08/2024 11:03 AM [facility] MCH 31.3 27.0 - 32.0 pcg LAB HEMETOLOGY METHOD 12/08/2024 11:03 AM [facility] MCHC 31.6(L) 32.0 - 37.0 g/dL LAB HEMETOLOGY METHOD 12/08/2024 11:03 AM [facility] RDW 14.4 11.0 - 15.0 % LAB HEMETOLOGY METHOD 12/08/2024 11:03 AM [facility] Platelets 176 130 - 400 K/mcL LAB HEMETOLOGY METHOD 12/08/2024 11:03 AM [facility] MPV 10.0 7.0 - 11.0 [...] ORDERABLES Final Resul t Performing Organization Address [facility] Co de Phone Number [facility] [address] [place] [address], [place] [phone] * (ABNORMAL) Prothrombin time with INR (12/08/2024 [...] Performing Organization Address City/[facility] [address]/ZIP Co de Phone Number [facility] [address] [place] [address], [place] [phone] documented in this encounter Visit Diagnoses Diagnosis Unspecified atrial fibrillation (CMS/HCC V24, CMS/HCC V28) Essential (primary) hypertension Unspecified essential hypertension documented in this encounter Care Teams Test Consultant Relationship Specialty Start Date End Date Eusebio Sprague MD [address] [place] [address] [address] [place] [address] PCP - General Geriatric Medicine 11/05/24 documented as of this encounter
== END 2025-03-31 10:35 | disposition home or self-care (01) ==
LOC: HO.ACS 10:07
PROVIDERS: PCP Physician Assistant; Visit Provider Internal Medicine Medical Oncology
DX: Z79.01 Long term (current) use of anticoagulants (principal)

== ENCOUNTER → 2025-03-31 10:07 | Outpatient (BNVA) | payer MEDICARE, SELFPAY | PROVIDERS: PCP Physician Assistant; Visit Provider Internal Medicine Medical Oncology | DX: I48.0 Paroxysmal atrial fibrillation (principal); Z51.81 Encounter for therapeutic drug level monitoring; Z79.01 Long term (current) use of anticoagulants | CPT/HCPCS: 85610; 99211 ==